=== PATIENT | female | born 1945 | race Caucasian/White ===

== ENCOUNTER 2018-11-22 12:42 | Inpatient (IN) | payer MEDICARE, OTHER, SELFPAY ==
[2018-11-14 15:40] VITALS: BMI 38.9
[2018-11-22] VITALS (34 sets, daily range): BP systolic 70–176; BP diastolic 42–86; PULSE 63–128; RESP 4–24; TEMP 36.4–37.1; O2SAT 93–100; BMI 38.5; BMI 39.6; BMI 39.7
--- NOTE | 2018-11-22 | PILCYST_PTH ---
PATIENT: CHRISS VERA LOC: [facility] U#:[id number] AGE/SX: 73/F ROOM: [facility] RE11/22/[address]: Dr. Joana Campoverde MD : [id number] BED: 1 DIS: 12/03/2018 SPEC #: [id number] RECD: 11/22/18 14:31 STATUS: TUAN REMickey #: [id number] DOUGLAS: 11/22/18 00:[address]: Dustin Eaton DEPT: SURGICAL PATHOLOGY RECD BY: Chin Maravilla ENTERED: 11/22/18 14:32 SP TYPE: Pilonidal OTHR DR: MD Inez Sevilla, DETECTIVE LIEUTENANT-C Tissues: PILONIDAL TISSUE Procedures: Surgery Specimen Level III HEADER OPERATION: Excision hidradenitis, gluteal and perianal area PRE-OP DIAGNOSIS: Hidradenitis bilateral perianal areas, early onset right inguinal hidradenitis TISSUE SUBMITTED: Tissue gluteal and bilateral perianal hidradenitis and pilonidal cyst MICROSCOPIC DIAGNOSIS Tissue gluteal and bilateral perianal hidradenitis and pilonidal cyst: Pieces of skin with underlying tissue with acute and chronic inflammation consistent with hidradenitis. Focal changes consistent with pilonidal cyst. SJ:del 11/23/18 MICROSCOPIC DESCRIPTION Slides are reviewed. GROSS DESCRIPTION Received in fixative is one container labeled with the patient's name and designated gluteal and perianal tissue. The specimen consists of four irregular fragments of pink-russell skin with attached hemorrhagic red-russell fibrofatty tissue. The fragments range in size from 6 to 13.5 cm. The fragments are not oriented or designated. No cutaneous lesions are identified. Serial sections reveal subcutaneous hemorrhagic cysts ranging in size from 1.5 to 6.2 cm. Armature Tester sections are submitted in three cassettes. / AM:del 11/22/18 TC:3 CPT: 27171
--- NOTE | 2018-11-22 00:22 | HP.PCM_ITS ---
History and Physical Date of Admission: 11/22/18 HISTORY OF PRESENT ILLNESS 73 year old woman presents with a flare up of hidradenitis in her bilateral perianal area. She has pain when sitting. She has noticed some drainage and some odor. She denies fever. She denies trauma. She has had hidradenitis before in her bilateral axillary areas, and left inguinal area. She had recent left inguinal hidradenitis surgery. She has also noted early onset hidradenitis in her right inguinal area but is asymptomatic at present. She has recently sustained a right shoulder dislocation and is undergoing PT. She is supposed to have a shoulder replacement in the future after her infected hidradenitis in her bilateral perianal areas have been excised and the wounds have healed. She is currently on Doxycycline for her recent left inguinal hidradenitis surgery. She presents today for further evaluation and treatment. PAST MEDICAL HISTORY Hemorrhoids Acid reflux Anxiety Depression Rheumatoid arthritis Back problem Diabetes Thyroid disease Anemia Asthma Carpal tunnel syndrome Cataracts, bilateral Chronic pneumonia Glaucoma Hearing problem High cholesterol High triglycerides Neuropathy Osteoarthritis UTI (urinary tract infection) COPD (chronic obstructive pulmonary disease) PAST SURGICAL HISTORY eye surgery hysterectomy carpal tunnel repair repair of left hip joint back surgery ALLERGIES adhesive tape azithromycin [From Zithromax] cephalexin [From Keflex] MEDICATIONS aspirin 325 mg tablet 325 mg PO DAILY 10/25/18 [History Confirmed 10/25/18] atorvastatin 80 mg tablet 80 mg PO DAILY 10/25/18 [History Confirmed 10/25/18] bimatoprost 0.01 % eye drops 1 drp OPHTHALMIC QPM 10/25/18 [History Confirmed 10/25/18] citalopram 20 mg tablet 20 mg PO DAILY 10/25/18 [History Confirmed 10/25/18] doxycycline hyclate 100 mg capsule 100 mg PO DAILY 10/25/18 [History Confirmed 10/25/18] fenofibrate nanocrystallized 145 mg tablet 145 mg PO DAILY 10/25/18 [History Confirmed 10/25/18] furosemide 40 mg tablet 40 mg PO DAILY 10/25/18 [History Confirmed 10/25/18] insulin human U-100 NPH-regulr 70-30 mix 100 unit/mL subcutaneous susp 80 unit SC DAILY ml 10/25/18 [History Confirmed 10/25/18] levalbuterol 0.63 mg/3 mL solution for nebulization 0.63 mg INHALATION ONCE 10/25/18 [History Confirmed 10/25/18] levothyroxine 175 mcg capsule 175 mcg PO DAILY 10/25/18 [History Confirmed 0 10/25/18] losartan 50 mg tablet 50 mg PO DAILY 10/25/18 [History Confirmed 10/25/18] metformin 500 mg tablet 500 mg PO BID 10/25/18 [History Confirmed 10/25/18] polyethylene glycol 3350 17 gram oral powder packet 17 g PO DAILY 10/25/18 [History Confirmed 10/25/18] potassium chloride 20 mEq oral packet 20 meq PO DAILY 10/25/18 [History Confirmed 10/25/18] pumpkin seed extract-soy germ 300 mg capsule cap PO cap 10/25/18 [History Confirmed 10/25/18] ropinirole 0.5 mg tablet 0.5 mg PO QHS 10/25/18 [History Confirmed 10/25/18] sulfamethoxazole 800 mg-trimethoprim 160 mg tablet 1 tab PO BID #60 tab 11/14/18 [Rx Confirmed 11/14/18] FAMILY HISTORY Mother - Lung cancer, Anxiety, Arthritis, Depression (emotion), Diabetes Sister - CVA (cerebral vascular accident), Anxiety, Asthma, Depression (emotion), Heart disease Aunt - Arthritis, Depression (emotion), Diabetes Daughter - Cancer Grandmother - Diabetes Grandfather - Heart disease, Psychiatric care, CVA (cerebral vascular accident) Father - COPD (chronic obstructive pulmonary disease) SOCIAL HISTORY Smoking Status: Former smoker alcohol intake: current alcohol intake frequency: holidays/special occasions only substance use type: does not use REVIEW OF SYSTEMS General - Denies fever, fatigue, and weight loss. Eyes - Denies cataracts and glaucoma. ENT - Denies nasal congestion and sore throat. Endocrine - Denies excessive thirst and urination. Has diabetes mellitus. Skin - Denies skin cancer. Has flare up of hidradenitis bilateral perianal are as. Musculoskeletal - Denies joint pain, joint stiffness, weakness of muscles and joints, back pain. Has arthritis. Neuro - Denies headaches. Cardiovascular - Denies chest pain, fatigue, and shortness of breath with exertion. Psych - Denies anxiety and depression. Respiratory - Denies chronic cough and shortness of breath. Patient is a former smoker. Gastrointestinal - Has nausea, vomiting, diarrhea, and constipation. Hematologic - Denies abnormal bruising and bleeding. Genitourinary - Denies hematuria and urinary frequency. PHYSICAL EXAMINATION General - Alert and Oriented HEENT - PERRL. EOMI. Throat is clear. No suspicious lesions noted. Neck - Supple and nontender. No cervical adenopathy. No suspicious lesions noted. Lungs - Clear to auscultation. Heart - Regular rate and rhythm. Abdomen - Soft and nondistended. Has small area of early onset hidradenitis right inguinal area. Mild induration. Nontender. Asymptomatic at this time. Had recent left inguinal hidradenitis surgery that is healed at present. Extremities - FROM. No axillary adenopathy. Radial pulses are palpable. Has bilateral axillary hidradenitis that shows some induration. Nontender. Asymptomatic at this time. Rectal - Has hidradenitis bilateral perianal areas. Left side measures 12 cm and the right side measures 4 cm. Close to the anal opening. Tender to palpation. No purulent drainage. Some exophytic growth noted on the left. Some induration noted. No ulcerations. Neuro - CN II-XII grossly intact. Psych - Normal mood and affect. ASSESSMENT 1. Hidradenitis bilateral perianal areas. 2. Early onset right inguinal hidradenitis. 3. Bilateral axillary hidradenitis, asymptomatic. 4. Left inguinal hidradenitis, recently excised. 5. Former smoker. PLAN Recommend excision of her hidradenitis bilateral perianal areas. Will send tissue to Pathology for analysis to rule out carcinoma. Will also send tissue to Microbiology for culture. A positive culture will necessitate antibiotic therapy. The wound will be left open and packed with Betadine dressings initially to minimize infection from stool. As the wound stabilizes and starts to heal, may change to Silver dressing changes daily. Stressed to the patient the importance of taking a shower after each bowel movement which gives us the best chance of healing without stool contamination. If stool contamination becomes an issue during the healing process, then she would need a temporary diverting colostomy until the wounds have healed. If a colostomy is done, can then consider a skin graft for closure. Because she has diabetes, if a skin graft is decided upon, she would need a HgbA1c checked, and it needs to be less than 8. Surgery would be under general anesthesia with a surgical observation overnight stay in the hospital. Anticipate increased metabolic demands from the infection and from the wounds after surgery. Will check a Prealbumin and encourage nutritional supplementation with protein to help the healing process. She was recently on Doxycycline for her left inguinal surgery. Will send a script for Bactrim that she can use for flare ups to temporize until surgery is done. Patient was informed of the risks and complications of the procedure including alternatives to surgery. These were discussed with the patient personally. Patient voices understanding and wishes to proceed. Some of the risks and complications were included in a form from the [employer]. After healing has occurred, she will return to see her Orthopedic Surgeon to discuss her right shoulder surgery.
[2018-11-22 08:50] LABS: Bedside Glucose 55 mg/dL (70-110)
[2018-11-22] MEDS: levoFLOXacin IV 500 MG/100 ML BAG 100 MG IV (09:11)
[2018-11-22 09:35] LABS: Bedside Glucose 171 mg/dL (70-110)
--- NOTE | 2018-11-22 12:33 | OP.PCM_ITS ---
Report of Operation Date of Procedure: 11/22/18 Pre-Operative Diagnosis: 1. Hidradenitis bilateral perianal areas. 2. Former smoker. Post-Operative Diagnosis: 1. Hidradenitis bilateral perianal areas. 2. Extensive, complicated pilonidal cyst abscess. 3. Former smoker. Surgery/Procedure Performed:: 1. Surgical preparation bilateral perianal areas with excision hidradenitis (162.5 cm2). 2. Excision extensive, complicated pilonidal cyst abscess (75 cm2). Description of Surgical Findings:: 73 year old woman presents with a flare up of hidradenitis in her bilateral perianal area. She has pain when sitting. She has noticed some drainage and some odor. She denies fever. She denies trauma. She has had hidradenitis before in her bilateral axillary areas, and left inguinal area. She had recent left inguinal hidradenitis surgery. She has also noted early onset hidradenitis in her right inguinal area but is asymptomatic at present. She has recently sustained a right shoulder dislocation and is undergoing PT. She is supposed to have a shoulder replacement in the future after her infected hidradenitis in her bilateral perianal areas have been excised and the wounds have healed. She is currently on Doxycycline for her recent left inguinal hidradenitis surgery. Patient was informed of the risks and complications of the procedure including alternatives to surgery. These were discussed with the patient personally. Patient voices understanding and wishes to proceed. Some of the risks and complications were included in a form from the [place] [employer]. IV Fluids - 1300 ml. Urine Output - 300 ml. Size of defect bilateral perianal area - 13 x 12.5 x 5 cm. Size of defect sacral area - 6 x 12.5 x 5 cm. Size of combined wound bilateral perianal area and sacral area - 19 x 12.5 x 5 cm. cargo checker: None Type of Anesthesia:: General Specimen's removed: Hidradenitis bilateral perianal areas and pilonidal cyst abs cess sacral area to Pathology and Microbiology. Drains: None. Estimated Blood Loss (mL): 250 ml. Fluids Replaced: 1600 ml (IV Fluids 1300 ml, Urine Output 300 ml). Description of Procedure: Patient was taken to OR in supine position and was placed under general anesthesia. She was then placed in the prone position. The sacral and bilateral gluteal and perianal areas were prepped and draped in the usual fashion. SCD's were placed for DVT prophylaxis. Perioperative antibiotics were given intravenously. Using xylocaine with epinephrine, the areas of hidradenitis in her bilateral gluteal and perianal areas were infiltrated. After waiting 5 minutes for the anesthetic to take effect, I excised her bilateral perianal hidradenitis down into the subcutaneous tissue extending to the underlying muscle. It extended up to the anal sphincter muscle. No pus was seen. A lot of fat necrosis was seen. A lot of induration and scarring was present. These areas were excised. When I excised posteriorly, it was noted the patient had an extensive, complicated pilonidal cyst abscess extending down to the sacral fascia. It had multiple lobulations. This extensive, complicated pilonidal cyst abscess was then excised. This soft tissue was sent to Pathology for analysis to rule out carcinoma and to Microbiology for culture. A positive culture will necessitate antibiotic therapy. The large bilateral perianal and sacral wound was irrigated with saline. Hemostasis was obtained with elec trocautery. The size of the total defect was 19 x 12.5 x 5 cm or 237.5 cm2. Broken down into the bilateral perianal component, the defect measures 13 x 12.5 x 5 cm or 162.5 cm2 and with the sacral component, the defect measures 6 x 12.5 x 5 cm or 75 cm2. The defect was then dressed with Mepitel nonadherent dressing followed by Kerlix gauze and Betadine followed by dry Kerlix gauze and ABD pads compression dressing followed by mesh panties. Will start Aquacel Silver dressing changes tomorrow and she would need to take a shower after each bowel movement at which time the dressing changes would change to saline dressing changes the rest of the day. After discharge, [facility]. She understands that if stool contamination occurs, then she would need a diverting colostomy. Grafts/Implants Used: None. - Complications None. - Admit VTE Documentation VTE Present on Admission: No VTE Mechan Device Prophylaxis: SCD's VTE Pharm Prophylaxis ordered?: Yes Code Visit Surgery Charges CPT - 52098 ICD-10 - L05.01, S31.000A, Z87.891 04967 L73.2, S31.809A, Z87.891 02184-56 L73.2, S31.809A, Z87.891
--- NOTE | 2018-11-22 12:58 | EKG12_ITS ---
Test Reason : Blood Pressure : / mmHG Vent. Rate : 078 BPM Atrial Rate : 078 BPM P-R Int : 220 ms QRS Dur : 096 ms QT Int : 384 ms P-R-T Axes : 023 -28 068 degrees QTc Int : 437 ms Sinus rhythm with sinus arrhythmia with 1st degree A-V block Inferior infarct , age undetermined Anteroseptal infarct , age undetermined Abnormal ECG Confirmed by MARILYN PITTMAN, BRYANT ([id number]), sports editor MARYANNE TIJERINA ([id number]) on 11/28/2018 1:39:50 PM Referred By: Dustin Eaton Confirmed By:BRYANT SANDERS MD
[2018-11-22 13:01] LABS: Bedside Glucose 187 mg/dL (70-110)
--- NOTE | 2018-11-22 13:28 | PN_ITS ---
Subjective: Consult for medical management: 73-year-old female with past medical history of hidradenitis of the bilateral axillary, inguinal and perianal region, reportedly with history of COPD on 3 L of oxygen hypertension, type II DM who comes in for an elective debridement of hidradenitis suppirativa. Patient was extubated postoperatively in the OR, and transferred to PACU. In PACU she was found to be having worsening shortness of breath, and was lethargic, she was reintubated and continued on mechanical intubation. Hospital medicine was consulted by primary for medical management Patient seen in PACU, intubated, sedated, minimally responsive. Unable to obtain review of systems. Vitals/I&O's: Vital Signs Temp Pulse Resp BP Pulse Ox 98.1 F 72 20 H 70/42 L 100 11/22/18 08:45 11/22/18 13:20 11/22/18 13:20 11/22/18 13:20 11/22/18 13:20 Oxygen Flow Rate (L/min) 10 Oxygen Delivery Method Mechanical Ventilator Weight: 98.8 kg Body Mass Index (BMI) 38.5 Intake and Output for Last 24 Hours 11/20/18 11/21/18 11/22/18 23:59 23:59 23:59 Output Total 300 / 300 Balance -300 / -300 General: - - Sedated, intubated, on mechanical ventilation HEENT: Atraumatic, EOMI, Normocephalic, - - Pupils are sluggish, right pupil bigger than the left, about 3 mm in diameter, no reactive to light Oral: Moist Mucosa Neck: Supple, No JVD, Negative Carotid Bruits Lungs: Clear to auscultation, Normal air movement Cardiovascular: Regular rate, Regular Rhythm, Normal S1, Normal S2, No murmurs Abdomen: Bowel Sounds Present, Soft, Non Tender, Non-Distended, No Hepato- splenomegaly, Obese Extremities: No edema Skin: - - excoriation of skin underneath the breast Musculoskeletal: No Tenderness to Palpation of Joints or Extremities Neurological: - - Sedated, intubated Psych/Mental Status: Normal Affect, Appropriate Laboratory Results 11/22/18 08:44: POC Glucose 55 L 11/22/18 09:30: POC Glucose 171 H 11/22/18 12:59: POC Glucose 187 H Current Medications Acetaminophen (Tylenol) 500 mg PO Q6H PRN PRN PRN Reason: PAIN Atorvastatin Calcium (Lipitor) 80 mg PO DAILY [facility] Citalopram Hydrobromide (Celexa) 20 mg PO DAILY [facility] Docusate Sodium (Colace) 100 mg PO BID [facility] Enoxaparin Sodium (Lovenox) 40 mg SC DAILY@0600 [facility] Fenofibrate (Tricor) 145 mg PO DAILY [facility] Furosemide (Lasix) 40 mg PO DAILY [facility] Hydromorphone HCl (Dilaudid Inj) 0.5 mg IV Q3H PRN PRN PRN Reason: SEVERE PAIN (-05/16) Levofloxacin (Levaquin Iv) 500 mg in 100 mls @ 100 mls/hr IV Q24 [facility] Lactated Ringer's () 1,000 mls @ 60 mls/hr IV .[id number] [facility] Metronidazole (Flagyl) 500 mg in 100 mls @ 100 mls/hr IV Q8 [facility] Insulin Human Isoph/Insulin Regular (Novolin 70/30) 80 units SC BID [facility] Losartan Potassium (Cozaar) 50 mg PO DAILY [facility] Metformin HCl (Glucophage) 500 mg PO BID [facility] Non-Formulary Medication (Bimatoprost 0.01% [Lumigan 0.01%]) 1 drp OPHTHALMIC QPM [facility] Non-Formulary Medication (Levalbuterol Hcl [Levalbuterol Hcl]) 0.63 mg INHALATION ONCE PRN PRN Reason: SOB &/OR WHEEZING Non-Formulary Medication (Levothyroxine Sodium [Tirosint]) 175 mcg PO DAILY [facility] Non-Formulary Medication (Potassium Chloride [Potassium Chloride]) 20 meq PO DAILY [facility] Non-Formulary Medication (Pumpkin Seed Extract/Soy Germ [Azo Bladder Control Capsule]) 1 cap PO PRN PRN PRN Reason: BLADDER SPASMS Nutritional Formula (Juice - Loop Flavor) [facility] Ondansetron HCl (Zofran) 4 mg IV Q6H PRN PRN PRN Reason: NAUSEA Oxycodone HCl (Oxyir) 10 mg PO Q4H PRN PRN PRN Reason: SEVERE PAIN (-05/16) Polyethylene Glycol (Miralax) 17 gm PO DAILY PRN PRN Reason: Constipation Promethazine HCl (Phenergan Tablet) 25 mg PO Q4H PRN PRN PRN Reason: NAUSEA/VOMITING Ropinirole HCl (Requip) 0.5 mg PO QHS [facility] Trimethoprim/Sulfamethoxazole (Bactrim Ds) tablet PO BID [facility] Medical Necessity - Tobacco Use Smoking Status: Former smoker Tobacco Use: Non-smoker Assessment/Plan All Active Problems (Last Updated 11/12/18 @ 10:48 by Kathy Olson) Hx of eye surgery (Acute) Hx of hysterectomy (Acute) Hx of carpal tunnel repair (Acute) History of repair of left hip joint (Acute) History of back surgery (Acute) Hemorrhoids (Acute) Acid reflux (Acute) Constipation (Acute) Diarrhea (Acute) Vomiting (Acute) Nausea (Acute) Abdominal pain (Acute) SOB (shortness of breath) (Acute) Heart murmur (Acute) Anxiety (Acute) Depression (Acute) Rheumatoid arthritis (Acute) Arthritis (Acute) Back problem (Acute) Diabetes (Acute) Thyroid disease (Acute) 73-year-old female with past medical history of hidradenitis of the bilateral axillary, inguinal and perianal region, reportedly with history of COPD on 3 L of oxygen hypertension, type II DM who comes in for an elective debridement of hidradenitis suppirativa and found to be in respiratory distress after initial extubation and re-intubated in PACU. 1. Acute hypoxic/hypercapneic respiratory failure, underlying history of COPD on 3 L of oxygen, status post intubation, mechanical ventilator Will be managed in ICU, process inspector also consulted, follow-up on recommendations. 2. Postop day #0 status post debridement/surgery for hidradenitis suppurativa, and of extensive, complicated pilonidal cyst abscess about 75 cm? Wound cultures are pending , will hold oral Bactrim, continue on IV Levaquin and Flagyl, will check for MRSA PCR 3. Hyperkalemia, K is 5.4, repeat labs are pending. 4. Type II DM, on metformin, check HbA1c, hold metformin, start with Accu-Cheks with insulin sliding scale 4. Rest of chronic medical problems - hypothyroidism, obesity, rheumatoid arthritis, hyperlipidemia, CKD stage 3- are stable 5. DVT PPx- Lovenox SC Code Visit Inpatient E&M: 76096 Subs Hosp L2
--- NOTE | 2018-11-22 13:34 | RAD_ITS ---
STUDY: X-RAY CHEST REASON FOR EXAM: Female, 73 years old. ET tube placement TECHNIQUE: Single AP portable view of the chest. COMPARISON: None. FINDINGS: ET tube is 5.3 cm above the anita approximately at the level of the aortic arch. There is mild pulmonary interstitial thickening. There is bibasilar atelectasis. There is a small left pleural effusion. No right pleural effusion. No pneumothorax. Normal size heart. Normal mediastinum and varsha. Normal visualized pulmonary arteries. Normal visualized aortic arch and descending thoracic aorta. Normal visualized thoracic spine. Normal visualized ribs, clavicles, and shoulders. There is no demonstrated abnormality of the visualized soft tissue structures of the upper abdomen. RAD/Chest 1 View (Portable) IMPRESSION: Moderate diffuse pulmonary edema and small left pleural effusion. Electronically Signed: Chandler Krishnamurthy, at 15:45 EDT Tel , Service support ,
[2018-11-22 13:56] LABS: Anion Gap 7 (5-15); BUN 25 mg/dL (7-18); BUN/Creat Ratio 22.7 RATIO (10-20); Calcium,Total 8.4 mg/dL (8.5-10.1); Chloride 102 mmol/L (98-107); EST Glomerular Filtration Rate 52 mL/min (>60); Est Glom Filt Rate - Afr Amer 63 mL/min (>60); Estimated Creatinine Clearance 38.24 ml/min; Glucose 227 mg/dL (74-106); Potassium 5.4 mmol/L (3.5-5.1); Sodium Level 134 mmol/L (136-145)
[2018-11-22] MEDS: Propofol 10MG/Ml 1,000 MG/100 ML Bottle 5.928 MG CONT INF (14:45)
[2018-11-22 14:51] LABS: Allen Test POS; Base Excess -3 mmol/L (-2 to +2); Bicarbonate 22.6 mmol/L (22-26); Blood Gas Specimen Type ART; FI02 60; Mode A-C; O2 Delivery Device Vent; PEEP 5; PO2 78 mmHG (75-100); RR 14; SITE L Radial; SO2 94 % (95-99); Time Given 1434; Total Carbon Dioxide 24 mmol/L; Vt 450; pCO2 43.3 mmHg (35-45); pH 7.33 (7.35-7.45)
[2018-11-22] MEDS: fentaNYL drip 100 ML 5 MCG CONT INF (15:19)
[2018-11-22 15:21] LABS: Allen Test POS; Blood Gas Specimen Type ART; FI02 100; PO2 189 mmHG (75-100); SITE L Radial; Time Given 1300
[2018-11-22 15:25] LABS: Bedside Glucose 202 mg/dL (70-110)
[2018-11-22] MEDS: Lactated Ringers 1,000 ML 60 ML IV (15:28)
[2018-11-22] MEDS: Lactated Ringers 1,000 ML 999 ML IV (15:40)
--- NOTE | 2018-11-22 15:41 | CPS ---
1312: critical values ran times two. Critical values hand delivered to DR. Roberson.
[2018-11-22 15:44] LABS: pCO2 > 130.0 mmHg (35-45)
[2018-11-22 15:45] LABS: pH 6.89 (7.35-7.45)
--- NOTE | 2018-11-22 15:48 | PCM.CON.CC ---
Problem List (1) COPD (chronic obstructive pulmonary disease) Status: Chronic Qualifiers: COPD type: unspecified COPD Qualified Code(s): J44.9 - Chronic obstructive pulmonary disease, unspecified (2) Hidradenitis suppurativa Status: Chronic Comment: bilateral inguinal hidradenitis (3) Former smoker Status: Chronic (4) Hidradenitis suppurativa of anus Status: Chronic Comment: bilateral perianal and gluteal areas (5) Hx of eye surgery Status: Acute Comment: left eye (6) Hx of hysterectomy Status: Acute (7) Hx of carpal tunnel repair Status: Acute Comment: bilateral (8) History of repair of left hip joint Status: Acute (9) History of back surgery Status: Acute Comment: fusion (10) Acid reflux Status: Acute (11) Heart murmur Status: Acute (12) Anxiety Status: Acute (13) Depression Status: Acute (14) Rheumatoid arthritis Status: Acute (15) Diabetes Status: Acute (16) Thyroid disease Status: Acute Reason for Consult Date of Consultation: 11/22/18 Reason for Consultation: Respiratory failure History of Present Illness: The patient is a 73 year old F, with past medical history listed below, who presented to [facility] on 11/22/2018 secondary to an elective resection of hidradenitis of the perianal region. Patient reportedly had a successful elective debridement of hidradenitis suppurativa of the anal region and tolerated the procedure well. There was some hypotension during the procedure requiring phenylephrine. Patient was extubated postoperatively and transferred to the PACU. In the PACU, patient was noted to have worsening dyspnea, lethargy and decreased responsiveness. End-tidal CO2 was reportedly above 80 and patient was intubated. ABG shortly thereafter showed a CO2 greater than 130. I was called to evaluate the patient in the PACU. Patient did have some decreased blood pressures associated with propofol and succinylcholine used for intubation. Patient reportedly tolerated the procedure well with an approximate 250 mL blood loss. Patient's repeat ABG showed correction of previous acidosis and patient was transferred to the intensive care unit for further evaluation. On arrival to the intensive care unit, patient was waking up. Patient was placed on a fentanyl drip, in addition to baseline propofol. Patient's blood pressure was slightly decreased. Patient did receive 1 L of lactated Ringer's. Patient was also noted to have pale mucosa, so a CBC, CMP and coagulation studies were sent. Patient has had an EKG that showed no significant changes. Patient reportedly has a history of COPD with questionable 3 L nasal cannula oxygen requirement. Patient has never had pulmonary function test or an echocardiogram completed at this hospital. Patient reportedly has Xopenex aerosols at home. Patient reportedly has recently been on doxycycline secondary to left inguinal hidradenitis. Remaining review of systems are unable to be obtained at this time secondary to patient's intubated status and no family at the bedside. Past Medical History Past Medical History (Chronic Problems): Chronic Problems (Last Updated 11/12/18 @ 10:48 by Kathy Olson) COPD (chronic obstructive pulmonary disease) (Chronic) Hidradenitis suppurativa (Chronic) bilateral inguinal hidradenitis Axillary hidradenitis suppurativa (Chronic) bilateral Former smoker (Chronic) Hidradenitis suppurativa of anus (Chronic) bilateral perianal and gluteal areas Medical History: Medical History (Last Updated 11/12/18 @ 10:48 by Kathy Olson) Hemorrhoids (Acute) K64.9 Acid reflux (Acute) K21.9 Constipation (Acute) K59.00 Diarrhea (Acute) R19.7 Vomiting (Acute) R11.10 Nausea (Acute) R11.0 Abdominal pain (Acute) R10.9 SOB (shortness of breath) (Acute) R06.02 Heart murmur (Acute) R01.1 Anxiety (Acute) F41.9 Depression (Acute) F32.9 Rheumatoid arthritis (Acute) M06.9 Arthritis (Acute) M19.90 Back problem (Acute) M53.9 Diabetes (Acute) E11.9 Thyroid disease (Acute) E07.9 Anemia D64.9 Asthma J45.909 Bone fracture T14.8XXA Carpal tunnel syndrome G56.00 Cataracts, bilateral H26.9 Chronic pneumonia J18.9 Glaucoma H40.9 Hearing problem H91.90 High cholesterol E78.00 High triglycerides E78.1 Multiple allergies Z88.9 Neuropathy G62.9 Osteoarthritis M19.90 Recurrent infections B99.9 UTI (urinary tract infection) N39.0 COPD (chronic obstructive pulmonary disease) J44.9 Allergies adhesive tape Allergy (Unknown, Verified 11/22/18 08:41) Unknown azithromycin [From Zithromax] Allergy (Unknown, Verified 11/22/18 08:41) Unknown cephalexin [From Keflex] Allergy (Unknown, Verified 11/22/18 08:41) Unknown Home Medications: Ambulatory Orders Medication Instructions Recorded aspirin 325 mg tablet 325 mg PO DAILY 10/25/18 atorvastatin 80 mg tablet 80 mg PO DAILY 10/25/18 bimatoprost 0.01 % eye drops 1 drp OPHTHALMIC QPM 10/25/18 citalopram 20 mg tablet 20 mg PO DAILY 10/25/18 doxycycline hyclate 100 mg capsule 100 mg PO DAILY 10/25/18 fenofibrate nanocrystallized 145 145 mg PO DAILY 10/25/18 mg tablet furosemide 40 mg tablet 40 mg PO DAILY 10/25/18 insulin human U-100 NPH-regulr 80 unit SC BID ml 10/25/18 70-30 mix 100 unit/mL subcutaneous susp levalbuterol 0.63 mg/3 mL solution 0.63 mg INHALATION ONCE PRN 10/25/18 for nebulization levothyroxine 175 mcg capsule 175 mcg PO DAILY 10/25/18 losartan 50 mg tablet 50 mg PO DAILY 10/25/18 metformin 500 mg tablet 500 mg PO BID 10/25/18 polyethylene glycol 3350 17 gram 17 g PO DAILY PRN 10/25/18 oral powder packet potassium chloride 20 mEq oral 20 meq PO DAILY 10/25/18 packet pumpkin seed extract-soy germ 300 1 cap PO PRN PRN cap 10/25/18 mg capsule ropinirole 0.5 mg tablet 0.5 mg PO QHS 10/25/18 sulfamethoxazole 800 1 tab PO BID #60 tab 11/14/18 mg-trimethoprim 160 mg tablet Surgical History: Surgical History (Last Reviewed 10/30/18 @ 14:00 by Anselmo Serrato MD) Hx of eye surgery (Acute) Z98.890 left eye Hx of hysterectomy (Acute) Z90.710 Hx of carpal tunnel repair (Acute) Z98.890 bilateral History of repair of left hip joint (Acute) Z98.890 History of back surgery (Acute) Z98.890 fusion Smoking Status: Former smoker Tobacco Use: Non-smoker Review of Systems Unable to obtain accurate/complete ROS d/t: Intubated and sedated Objective: Chest x-ray was personally reviewed and shows no acute infiltrates. - Physical Exam General: - - Intubated and sedated. RASS -1. Obese. Fair vent synchrony noted. HEENT: Atraumatic, PERRLA, EOMI, Normocephalic Oral: Moist Mucosa, No Gingival or Mucosal Lesions/ Ulcerations, - - Pale mucous membranes Neck: Supple, No JVD, No Nodes, Trachea Midline Lungs: No rhonchi, No wheeze, No rales, Diminished, - - Symmetric expansion. No dullness to percussion. Cardiovascular: Regular rate, Regular Rhythm, Normal S1, Normal S2, No murmurs, No rub noted, No Gallop Abdomen: Bowel Sounds Present, Soft, Non Tender, Non-Distended, Obese Extremities: No clubbing, No cyanosis, Edema - 1+ of the lower extremities Skin: Incision - Clean, dry and intact Musculoskeletal: No Tenderness to Palpation of Joints or Extremities Lymphatic: No Cervical, Supraclavicular, or Inguinal Adenopathy Neurological: Cranial nerves II-XII grossly intact, Neuro grossly intact, Motor Exam 5/5 strength throughout Psych/Mental Status: Flat Affect, Impulsive Vital Signs Temp Pulse Resp BP Pulse Ox 37.1 C 84 15 106/42 L 95 11/22/18 14:00 11/22/18 15:32 11/22/18 15:32 11/22/18 14:15 11/22/18 15:32 Oxygen Flow Rate (L/min) 10 Oxygen Delivery Method Mechanical Ventilator Weight: 98.8 kg Body Mass Index (BMI) 38.5 Intake and Output for Last 24 Hours 11/20/18 11/21/18 11/22/18 23:59 23:59 23:59 Output Total 300 / 300 Balance -300 / -300 Laboratory Tests Past 24 Hrs 11/22/18 11/22/18 11/22/18 13:12 13:30 13:30 Specimen Type ART Sample Site L Radial pH 6.89 L* Bicarbonate Actual TNP POC Total CO2 TNP Base Excess TNP O2 Saturation TNP O2 % 100 ABG pCO2 > 130.0 H* ABG pO2 189 H Andrew Test POS Respiration Rate O2 Delivery Device Ambu Vent Mode Tidal Volume POC PEEP Blood Gas Notified Whom OTHER Blood Gas Notified Time 1300 Sodium 134 L Potassium 5.4 H Chloride 102 Carbon Dioxide 25.0 Anion Gap 7 BUN 25 H Creatinine 1.10 H Estim Creat Clear Calc 38.24 Est GFR (MDRD) Af Amer 63 Est GFR (MDRD) Non-Af 52 L BUN/Creatinine Ratio 22.7 H Glucose 227 H Calcium 8.4 L Total Creatine Kinase Troponin I 0.036 Triglycerides 11/22/18 11/22/18 13:30 14:45 Specimen Type ART Sample Site L Radial pH 7.33 L Bicarbonate Actual 22.6 POC Total CO2 24 Base Excess -3 L O2 Saturation 94 L O2 % 60 ABG pCO2 43.3 ABG pO2 78 Andrew Test POS Respiration Rate 14 O2 Delivery Device Vent Vent Mode A-C Tidal Volume 450 POC PEEP 5 Blood Gas Notified Whom OTHER Blood Gas Notified Time 1434 Sodium Potassium Chloride Carbon Dioxide Anion Gap BUN Creatinine Estim Creat Clear Calc Est GFR (MDRD) Af Amer Est GFR (MDRD) Non-Af BUN/Creatinine Ratio Glucose Calcium Total Creatine Kinase Pending Troponin I Triglycerides Pending POC Glucose 11/22/18 11/22/18 11/22/18 15:16 12:59 09:30 POC Glucose 202 H 187 H 171 H 11/22/18 08:44 POC Glucose 55 L Clinical Impression(s) from Imaging Studies Chest X-Ray 11/22/18 13:34 IMPRESSION: Moderate diffuse pulmonary edema and small left pleural effusion. Electronically Signed: Chandler Raghu, at 15:45 EDT Tel , Service support , Assessment/Plan RECOMMENDATIONS: 1. Continue mechanical ventilation at current settings 2. Initiate empiric antibiotic therapy 3. Spontaneous awakening and breathing trials per protocol 4. Wean supplemental oxygen is indicated 5. Await repeat laboratory workup IMPRESSIONS: 1. Acute combined respiratory failure with questionable history of COPD Repeat ABG shows normalization of acid base status with current mechanical ventilation. Chest x-ray does show some possible pulmonary edema versus atelectasis from hypoventilation. We will continue with propofol and fentanyl as needed for vent synchrony. Spontaneous awakening and breathing trials per protocol. Patient does not appear to be a CO2 retainer at baseline, so doubt hyper oxygen status leading to decreased respiratory drive. Patient may have slow metabolism of anesthetics. Hepatic panel will be ordered. Hyperkalemia may be secondary to systemic acidosis. This will be rechecked. 2. Hypotension Unclear etiology at this time. Patient did receive significant anesthesia. Patient also appears to have pale mucous membranes. CBC will be obtained for evaluation of acute blood loss anemia. Patient will be given empiric antibiotics with Levaquin and Flagyl. Labs have been ordered for evaluation of endorgan damage. Oxygenating well at this time, so will continue to use fluids as necessary. Cannot exclude the need for pressors overnight. 3. Hidradenitis suppurativa postop day #0 Patient with extensive complicated abscess removal. Reported tissue removal of approximately 75 cm?. Patient does have wound cultures pending that will direct antibiotic coverage. MRSA PCR has spent ordered. 4. Obesity/type 2 diabetes mellitus/hyperlipidemia/rheumatoid arthritis/chronic pain syndrome/hypothyroidism Complicates care, management, recovery and prognosis. Hold off on tube feeds at this time. Can check with sliding scale insulin every 6 hours while n.p.o. Hemoglobin A1c has been ordered. TIME: 45 minutes critical care time spent addressing patient's acute combined respiratory failure, hypotension, review of all data and collaboration with care team (3 PM to 4 PM) Code Visit [id number]: [id number] Critical care first hour
[2018-11-22 16:00] LABS: CPK Total, Creatine Kinase 81 U/L (26-192); Triglycerides 166 mg/dL
[2018-11-22 16:15] LABS: Absolute Lymphocyte Count 0.79 X10^3/ul (0.83-4.51); Absolute Neutrophil Count 9.5 X10^3/uL (2.0-7.7); Basophil# 0.01 X10^3/uL; Basophil% 0.1 % (0-1); Eosinophil# 0.03 X10^3/uL; Eosinophils% 0.3 % (0-5); Hematocrit 27.2 % (37-47); Hemoglobin 8.4 g/dl (12.0-15.0); Lymphocyte # 0.79 X10^3/ul (4.0); Lymphocyte % 7.6 % (19-41); Mean Corp Hgb Conc 30.9 g/gl (32-36); Mean Corpuscular Hgb 25.5 pg (27.0-32.0); Mean Corpuscular Volume 82.4 fL (81-99); Mean Platelet Vol. 9.6 fl (6.2-12.0); Monocyte# 0.11 X10^3/uL; Monocyte% 1.1 % (0-10); Neutrophil # 9.45 X10^3/uL (2.7-7.7); Neutrophil % 90.5 % (47-70); Platelet Count 290 K/mm3 (150-450); RBC Distribution Width CV 16.3 % (11.6-14.6); RBC Distribution Width SD 49.4 fl (35.1-43.9); White Blood Count 10.4 K/mm3 (4.4-11.0)
[2018-11-22 16:17] LABS: POSITIVE COUNT NO; POSITIVE DIFFERENTIAL NO; POSITIVE MORPHOLOGY NO
[2018-11-22 16:21] LABS: International Normalized Ratio 1.3; Partial Thromboplast Time 32.6 Seconds (24.1-36.2); Prothrombin Time (Protime)PT. 15.7 SECONDS (11.7-14.9)
[2018-11-22 16:35] LABS: ALB/GLOB Ratio 0.5 RATIO (0.9-2.4); AST(SGOT) 22 U/L (15-37); Alanine Aminotransfer ALT/SGPT 19 U/L (13-56); Albumin, Serum 2.3 g/dL (3.2-5.0); Alkaline Phosphatase 35 U/L (45-117); Anion Gap 4 (5-15); BUN 26 mg/dL (7-18); BUN/Creat Ratio 25.5 RATIO (10-20); Calcium,Total 8.2 mg/dL (8.5-10.1); Chloride 103 mmol/L (98-107); Creatinine, Serum 1.02 mg/dL (0.55-1.02); EST Glomerular Filtration Rate 57 mL/min (>60); Est Glom Filt Rate - Afr Amer 68 mL/min (>60); Estimated Creatinine Clearance 39.43 ml/min; Globulin 4.5 g/dL (2.2-4.2); Glucose 193 mg/dL (74-106); Potassium 4.7 mmol/L (3.5-5.1); Protein, Total 6.8 g/dL (6.4-8.2); Sodium Level 134 mmol/L (136-145)
[2018-11-22] MEDS: Ipratropium/Albuterol Sulfate 3 ML AMPUL.NEB INHALATION (16:58)
[2018-11-22] MEDS: Budesonide Respules 0.5 MG/2 ML AMPUL.NEB. INHALATION (16:58)
--- NOTE | 2018-11-22 17:20 | NURSING ---
ed re chronic illness deferred till acute illness resolving
[2018-11-22] MEDS: Insulin Lispro 100 UNIT/ML INSULN.PEN SQ ×2 (18:26→23:57)
[2018-11-22 18:40] LABS: Bedside Glucose 156 mg/dL (70-110)
[2018-11-22] MEDS: Latanoprost 0.005% 1 Bottle 1 DRP OPHTHALMIC (21:22)
[2018-11-22] MEDS: 0.9% NaCl Peripheral Flush Adult/Peds IV ×2 (21:25→23:47)
[2018-11-22 21:31] LABS: Bedside Glucose 144 mg/dL (70-110)
[2018-11-22] MEDS: Chlorhexidine 15 ML PO (21:38)
[2018-11-22] MEDS: Propofol 10MG/Ml 1,000 MG/100 ML Bottle 8.892 MG CONT INF (23:47)
[2018-11-23] VITALS (29 sets, daily range): BP systolic 95–138; BP diastolic 37–62; PULSE 67–93; RESP 14–24; TEMP 36.7–37.3; O2SAT 92–98
[2018-11-23 00:06] LABS: Bedside Glucose 167 mg/dL (70-110)
[2018-11-23] MEDS: fentaNYL drip 100 ML 10 MCG CONT INF (00:35)
[2018-11-23] MEDS: 0.9% NaCl Peripheral Flush Adult/Peds IV ×4 (05:22→22:07)
[2018-11-23] MEDS: Enoxaparin 40 MG/0.4 ML Syringe SC (05:23)
[2018-11-23 05:24] LABS: Hematocrit 24.8 % (37-47); Hemoglobin 7.9 g/dl (12.0-15.0); Mean Corp Hgb Conc 31.9 g/gl (32-36); Mean Corpuscular Hgb 25.7 pg (27.0-32.0); Mean Corpuscular Volume 80.8 fL (81-99); Mean Platelet Vol. 9.7 fl (6.2-12.0); Platelet Count 272 K/mm3 (150-450); RBC Distribution Width CV 16.2 % (11.6-14.6); RBC Distribution Width SD 47.3 fl (35.1-43.9); Red Blood Count 3.07 M/mm3 (4.2-5.4); White Blood Count 10.2 K/mm3 (4.4-11.0)
[2018-11-23 05:25] LABS: Scan Indicated on CBC? Y/N NO
[2018-11-23 05:36] LABS: Bedside Glucose 131 mg/dL (70-110)
[2018-11-23 05:37] LABS: Anion Gap 7 (5-15); BUN 27 mg/dL (7-18); BUN/Creat Ratio 30.5 RATIO (10-20); Calcium,Total 8.5 mg/dL (8.5-10.1); Chloride 105 mmol/L (98-107); Creatinine, Serum 0.88 mg/dL (0.55-1.02); EST Glomerular Filtration Rate 67 mL/min (>60); Est Glom Filt Rate - Afr Amer 81 mL/min (>60); Glucose 141 mg/dL (74-106); Potassium 4.1 mmol/L (3.5-5.1); Sodium Level 137 mmol/L (136-145)
[2018-11-23 05:43] LABS: Prealbumin 13.7 mg/dL (20.0-40.0)
[2018-11-23 06:10] LABS: Allen Test POS; Base Excess -1 mmol/L (-2 to +2); Bicarbonate 23.2 mmol/L (22-26); Blood Gas Specimen Type ART; FI02 35; Mode CPAP PS; O2 Delivery Device Vent; PEEP 5; PO2 90 mmHG (75-100); PS 5; SITE L Radial; SO2 97 % (95-99); Time Given 601; Total Carbon Dioxide 24 mmol/L; pCO2 33.9 mmHg (35-45); pH 7.44 (7.35-7.45)
--- NOTE | 2018-11-23 06:25 | NURSING ---
Pt. extubated by respiratory to 4L NC. Pt. tolerated well.
[2018-11-23] MEDS: Ipratropium/Albuterol Sulfate 3 ML AMPUL.NEB INHALATION ×3 (06:45→18:58)
[2018-11-23] MEDS: Budesonide Respules 0.5 MG/2 ML AMPUL.NEB. INHALATION ×2 (06:46→18:58)
--- NOTE | 2018-11-23 07:06 | PN_ITS ---
Subjective: Patient did well overnight. No acute issues have been reported. Patient's blood pressure was marginal while on sedation, but improved rapidly with spontaneous awakening trial. Patient was able to tolerate a spontaneous breathing trial and was extubated under my direct supervision. Pain is controlled at this time. Patient is not reporting any chest pain. General: Alert, Cooperative, No apparent distress, - - Morbidly obese. HEENT: Atraumatic, PERRLA, EOMI, Normocephalic, - - No scleral icterus or injection noted. Oral: Moist Mucosa, No Gingival or Mucosal Lesions/ Ulcerations Neck: Supple, No JVD, No Nodes, Trachea Midline Lungs: No rhonchi, No wheeze, No rales, Diminished, - - Symmetric expansion. No dullness to percussion. Cardiovascular: Regular rate, Regular Rhythm, Normal S1, Normal S2, No murmurs, No rub noted, No Gallop Abdomen: Bowel Sounds Present, Soft, Non Tender, Non-Distended, Obese Extremities: No clubbing, No cyanosis, Edema Skin: Incision - Clean, dry and intact Musculoskeletal: No Tenderness to Palpation of Joints or Extremities Lymphatic: No Cervical, Supraclavicular, or Inguinal Adenopathy Neurological: Cranial nerves II-XII grossly intact, Neuro grossly intact, Motor Exam 5/5 strength throughout Psych/Mental Status: Normal Affect, Appropriate Vital Signs Temp Pulse Resp BP Pulse Ox 37.1 C 79 24 H 119/49 L 96 11/23/18 04:00 11/23/18 06:00 11/23/18 06:28 11/23/18 06:00 11/23/18 06:28 Oxygen Flow Rate (L/min) 4 Oxygen Delivery Method Nasal Cannula Weight: 101.4 kg Body Mass Index (BMI) 39.6 Intake and Output for Last 24 Hours 11/21/18 11/22/18 11/23/18 23:59 23:59 23:59 Intake Total 3221.9 / 3221.9 443.3 / 443.3 Output Total 950 / 950 350 / 350 Balance 2271.9 / 2271.9 93.3 / 93.3 Labs (Last 48 Hours) 11/22/18 11/22/18 11/22/18 08:44 09:30 12:59 WBC RBC Hgb Hct MCV MCH MCHC RDW RDW Differential Plt Count MPV Immature Gran % (Auto) Neut % (Auto) Lymph % (Auto) [place] % (Auto) Eos % (Auto) Baso % (Auto) Absolute Neuts (auto) Absolute Lymphs (auto) Total Counted PT INR APTT Specimen Type Sample Site pH Bicarbonate Actual POC Total CO2 Base Excess O2 Saturation O2 % ABG pCO2 ABG pO2 Andrew Test Respiration Rate O2 Delivery Device Vent Mode Tidal Volume POC PEEP POC Pressure Suppt Blood Gas Notified Whom Blood Gas Notified Time Sodium Potassium Chloride Carbon Dioxide Anion Gap BUN Creatinine Estim Creat Clear Calc Est GFR (MDRD) Af Amer Est GFR (MDRD) Non-Af BUN/Creatinine Ratio Glucose Calcium Total Bilirubin AST ALT Alkaline Phosphatase Total Creatine Kinase Troponin I Total Protein Albumin Globulin Albumin/Globulin Ratio Prealbumin Triglycerides POC Glucose 55 L 171 H 187 H 11/22/18 11/22/18 11/22/18 13:12 13:30 13:30 WBC RBC Hgb Hct MCV MCH MCHC RDW RDW Differential Plt Count MPV Immature Gran % (Auto) Neut % (Auto) Lymph % (Auto) [place] % (Auto) Eos % (Auto) Baso % (Auto) Absolute Neuts (auto) Absolute Lymphs (auto) Total Counted PT INR APTT Specimen Type ART Sample Site L Radial pH 6.89 L* Bicarbonate Actual TNP POC Total CO2 TNP Base Excess TNP O2 Saturation TNP O2 % 100 ABG pCO2 > 130.0 H* ABG pO2 189 H Andrew Test POS Respiration Rate O2 Delivery Device Ambu Vent Mode Tidal Volume POC PEEP POC Pressure Suppt Blood Gas Notified Whom OTHER Blood Gas Notified Time 1300 Sodium 134 L Potassium 5.4 H Chloride 102 Carbon Dioxide 25.0 Anion Gap 7 BUN 25 H Creatinine 1.10 H Estim Creat Clear Calc 38.24 Est GFR (MDRD) Af Amer 63 Est GFR (MDRD) Non-Af 52 L BUN/Creatinine Ratio 22.7 H Glucose 227 H Calcium 8.4 L Total Bilirubin AST ALT Alkaline Phosphatase Total Creatine Kinase Troponin I 0.036 Total Protein Albumin Globulin Albumin/Globulin Ratio Prealbumin Triglycerides POC Glucose 11/22/18 11/22/18 11/22/18 13:30 14:45 15:16 WBC RBC Hgb Hct MCV MCH MCHC RDW RDW Differential Plt Count MPV Immature Gran % (Auto) Neut % (Auto) Lymph % (Auto) [place] % (Auto) Eos % (Auto) Baso % (Auto) Absolute Neuts (auto) Absolute Lymphs (auto) Total Counted PT INR APTT Specimen Type ART Sample Site L Radial pH 7.33 L Bicarbonate Actual 22.6 POC Total CO2 24 Base Excess -3 L O2 Saturation 94 L O2 % 60 ABG pCO2 43.3 ABG pO2 78 Andrew Test POS Respiration Rate 14 O2 Delivery Device Vent Vent Mode A-C Tidal Volume 450 POC PEEP 5 POC Pressure Suppt Blood Gas Notified Whom OTHER Blood Gas Notified Time 1434 Sodium Potassium Chloride Carbon Dioxide Anion Gap BUN Creatinine Estim Creat Clear Calc Est GFR (MDRD) Af Amer Est GFR (MDRD) Non-Af BUN/Creatinine Ratio Glucose Calcium Total Bilirubin AST ALT Alkaline Phosphatase Total Creatine Kinase 81 Troponin I Total Protein Albumin Globulin Albumin/Globulin Ratio Prealbumin Triglycerides 166 POC Glucose 202 H 11/22/18 11/22/18 11/22/18 16:00 16:00 16:00 WBC 10.4 RBC 3.30 L Hgb 8.4 L Hct 27.2 L MCV 82.4 MCH 25.5 L MCHC 30.9 L RDW 16.3 H RDW Differential 49.4 H Plt Count 290 MPV 9.6 Immature Gran % (Auto) 0.400 Neut % (Auto) 90.5 H Lymph % (Auto) 7.6 L [place] % (Auto) 1.1 Eos % (Auto) 0.3 Baso % (Auto) 0.1 Absolute Neuts (auto) 9.5 H Absolute Lymphs (auto) 0.79 L Total Counted Not Reportable PT 15.7 H INR 1.3 APTT 32.6 Specimen Type Sample Site pH Bicarbonate Actual POC Total CO2 Base Excess O2 Saturation O2 % ABG pCO2 ABG pO2 Andrew Test Respiration Rate O2 Delivery Device Vent Mode Tidal Volume POC PEEP POC Pressure Suppt Blood Gas Notified Whom Blood Gas Notified Time Sodium Potassium Chloride Carbon Dioxide Anion Gap BUN Creatinine Estim Creat Clear Calc Est GFR (MDRD) Af Amer Est GFR (MDRD) Non-Af BUN/Creatinine Ratio Glucose Calcium Total Bilirubin AST ALT Alkaline Phosphatase Total Creatine Kinase Troponin I 0.695 H* Total Protein Albumin Globulin Albumin/Globulin Ratio Prealbumin Triglycerides POC Glucose 11/22/18 11/22/18 11/22/18 16:00 18:23 20:15 WBC RBC Hgb Hct MCV MCH MCHC RDW RDW Differential Plt Count MPV Immature Gran % (Auto) Neut % (Auto) Lymph % (Auto) [place] % (Auto) Eos % (Auto) Baso % (Auto) Absolute Neuts (auto) Absolute Lymphs (auto) Total Counted PT INR APTT Specimen Type Sample Site pH Bicarbonate Actual POC Total CO2 Base Excess O2 Saturation O2 % ABG pCO2 ABG pO2 Andrew Test Respiration Rate O2 Delivery Device Vent Mode Tidal Volume POC PEEP POC Pressure Suppt Blood Gas Notified Whom Blood Gas Notified Time Sodium 134 L Potassium 4.7 Chloride 103 Carbon Dioxide 27.0 Anion Gap 4 L BUN 26 H Creatinine 1.02 Estim Creat Clear Calc 39.43 Est GFR (MDRD) Af Amer 68 Est GFR (MDRD) Non-Af 57 L BUN/Creatinine Ratio 25.5 H Glucose 193 H Calcium 8.2 L Total Bilirubin 0.20 AST 22 ALT 19 Alkaline Phosphatase 35 L Total Creatine Kinase Troponin I 1.310 H* Total Protein 6.8 Albumin 2.3 L Globulin 4.5 H Albumin/Globulin Ratio 0.5 L Prealbumin Triglycerides POC Glucose 156 H 11/22/18 11/22/18 11/22/18 21:15 23:10 23:56 WBC RBC Hgb Hct MCV MCH MCHC RDW RDW Differential Plt Count MPV Immature Gran % (Auto) Neut % (Auto) Lymph % (Auto) [place] % (Auto) Eos % (Auto) Baso % (Auto) Absolute Neuts (auto) Absolute Lymphs (auto) Total Counted PT INR APTT Specimen Type Sample Site pH Bicarbonate Actual POC Total CO2 Base Excess O2 Saturation O2 % ABG pCO2 ABG pO2 Andrew Test Respiration Rate O2 Delivery Device Vent Mode Tidal Volume POC PEEP POC Pressure Suppt Blood Gas Notified Whom Blood Gas Notified Time Sodium Potassium Chloride Carbon Dioxide Anion Gap BUN Creatinine Estim Creat Clear Calc Est GFR (MDRD) Af Amer Est GFR (MDRD) Non-Af BUN/Creatinine Ratio Glucose Calcium Total Bilirubin AST ALT Alkaline Phosphatase Total Creatine Kinase Troponin I 1.940 H* Total Protein Albumin Globulin Albumin/Globulin Ratio Prealbumin Triglycerides POC Glucose 144 H 167 H 11/23/18 11/23/18 11/23/18 02:15 05:15 05:15 WBC 10.2 RBC 3.07 L Hgb 7.9 L Hct 24.8 L MCV 80.8 L MCH 25.7 L MCHC 31.9 L RDW 16.2 H RDW Differential 47.3 H Plt Count 272 MPV 9.7 Immature Gran % (Auto) Neut % (Auto) Lymph % (Auto) [place] % (Auto) Eos % (Auto) Baso % (Auto) Absolute Neuts (auto) Absolute Lymphs (auto) Total Counted PT INR APTT Specimen Type Sample Site pH Bicarbonate Actual POC Total CO2 Base Excess O2 Saturation O2 % ABG pCO2 ABG pO2 Andrew Test Respiration Rate O2 Delivery Device Vent Mode Tidal Volume POC PEEP POC Pressure Suppt Blood Gas Notified Whom Blood Gas Notified Time Sodium Potassium Chloride Carbon Dioxide Anion Gap BUN Creatinine Estim Creat Clear Calc Est GFR (MDRD) Af Amer Est GFR (MDRD) Non-Af BUN/Creatinine Ratio Glucose Calcium Total Bilirubin AST ALT Alkaline Phosphatase Total Creatine Kinase Troponin I 2.500 H* Total Protein Albumin Globulin Albumin/Globulin Ratio Prealbumin 13.7 L Triglycerides POC Glucose 11/23/18 11/23/18 11/23/18 05:15 05:15 05:20 WBC RBC Hgb Hct MCV MCH MCHC RDW RDW Differential Plt Count MPV Immature Gran % (Auto) Neut % (Auto) Lymph % (Auto) [place] % (Auto) Eos % (Auto) Baso % (Auto) Absolute Neuts (auto) Absolute Lymphs (auto) Total Counted PT INR APTT Specimen Type Sample Site pH Bicarbonate Actual POC Total CO2 Base Excess O2 Saturation O2 % ABG pCO2 ABG pO2 Andrew Test Respiration Rate O2 Delivery Device Vent Mode Tidal Volume POC PEEP POC Pressure Suppt Blood Gas Notified Whom Blood Gas Notified Time Sodium 137 Potassium 4.1 Chloride 105 Carbon Dioxide 25.0 Anion Gap 7 BUN 27 H Creatinine 0.88 Estim Creat Clear Calc 45.70 Est GFR (MDRD) Af Amer 81 Est GFR (MDRD) Non-Af 67 BUN/Creatinine Ratio 30.5 H Glucose 141 H Calcium 8.5 Total Bilirubin AST ALT Alkaline Phosphatase Total Creatine Kinase Troponin I 2.350 H* Total Protein Albumin Globulin Albumin/Globulin Ratio Prealbumin Triglycerides POC Glucose 131 H 11/23/18 06:08 WBC RBC Hgb Hct MCV MCH MCHC RDW RDW Differential Plt Count MPV Immature Gran % (Auto) Neut % (Auto) Lymph % (Auto) [place] % (Auto) Eos % (Auto) Baso % (Auto) Absolute Neuts (auto) Absolute Lymphs (auto) Total Counted PT INR APTT Specimen Type ART Sample Site L Radial pH 7.44 Bicarbonate Actual 23.2 POC Total CO2 24 Base Excess -1 O2 Saturation 97 O2 % 35 ABG pCO2 33.9 L ABG pO2 90 Andrew Test POS Respiration Rate O2 Delivery Device Vent Vent Mode CPAP PS Tidal Volume POC PEEP 5 POC Pressure Suppt 5 Blood Gas Notified Whom ICU MD Blood Gas Notified Time 601 Sodium Potassium Chloride Carbon Dioxide Anion Gap BUN Creatinine Estim Creat Clear Calc Est GFR (MDRD) Af Amer Est GFR (MDRD) Non-Af BUN/Creatinine Ratio Glucose Calcium Total Bilirubin AST ALT Alkaline Phosphatase Total Creatine Kinase Troponin I Total Protein Albumin Globulin Albumin/Globulin Ratio Prealbumin Triglycerides POC Glucose Clinical Impression(s) from Imaging Studies Chest X-Ray 11/22/18 13:34 IMPRESSION: Moderate diffuse pulmonary edema and small left pleural effusion. Electronically Signed: Chandler Raghu, at 15:45 EDT Tel , Service support , Medical Necessity - Tobacco Use Smoking Status: Former smoker Tobacco Use: Non-smoker Assessment/Plan All Active Problems (Last Updated 11/12/18 @ 10:48 by Kathy Olson) Hx of eye surgery (Acute) Hx of hysterectomy (Acute) Hx of carpal tunnel repair (Acute) History of repair of left hip joint (Acute) History of back surgery (Acute) Hemorrhoids (Acute) Acid reflux (Acute) Constipation (Acute) Diarrhea (Acute) Vomiting (Acute) Nausea (Acute) Abdominal pain (Acute) SOB (shortness of breath) (Acute) Heart murmur (Acute) Anxiety (Acute) Depression (Acute) Rheumatoid arthritis (Acute) Arthritis (Acute) Back problem (Acute) Diabetes (Acute) Thyroid disease (Acute) RECOMMENDATIONS: 1. Wean supplemental oxygen as tolerated 2. Antibiotics per surgery recommendations 3. Bedside swallow evaluation with initiation of p.o. diet if okay with surgery 4. Defer to surgery on pain control 5. Await repeat laboratory workup IMPRESSIONS: 1. Acute combined respiratory failure with questionable history of COPD Patient appears to be doing well at this time. Patient does report using 3 L nasal cannula while at home. Patient denied any respiratory complaints prior to surgery. Clinical suspicion for medication effect. We will continue to monitor in the intensive care unit. Possibly able to leave the intensive care unit later today pending respiratory status. 2. Hypotension Unclear etiology at this time. Patient did receive significant anesthesia. Patient also appears to have pale mucous membranes. CBC showed no substantial blood loss. Patient will be given empiric antibiotics with Levaquin and Flagyl. 3. Hidradenitis suppurativa postop day #1 Patient with extensive complicated abscess removal. Reported tissue removal of approximately 75 cm?. Patient does have wound cultures pending that will direct antibiotic coverage. Will defer to surgery for pain control and initiation of p.o. diet. Antibiotics will be directed by micro. 4. Obesity/type 2 diabetes mellitus/hyperlipidemia/rheumatoid arthritis/chronic pain syndrome/hypothyroidism Complicates care, management, recovery and prognosis. Hold off on tube feeds at this time. Can check with sliding scale insulin every 6 hours while n.p.o. Transition to q. before meals and at bedtime if patient initiated on p.o. diet. 5. Elevated troponin Unclear if this is simply demand mismatch. Patient was significantly acidotic. Defer to hospitalist on whether cardiology should be involved for possible stress test. No anticoagulation given recent surgery. TIME: 35 minutes critical care time spent addressing patient's acute combined respiratory failure, hypotension, review of all data and collaboration with care team (5:50 AM to 6 AM) Code Visit [id number]: [id number] Critical care first hour
--- NOTE | 2018-11-23 09:26 | CASEMGMT ---
RN CM Assessment Presentation: Pt presented for surgery- Hidradenitis bilateral perianal areas, excision extensive. To ICU post op. Intro role of CM and purpose of RN CM assessment to patient in room. She is awake, alert, able to participate in RN CM assessment. . Demographics, PCP and Pharmacy verified. Pt verbalized that physician recommended she may need SNF on discharge for wound care and PT/OT. Pt is reluctant. RN JUAN A spoke at length with her re: anticipated care needs and need for keeping surgical area clean and extensive dressing changes. RN CM let her know CM would be available to assist with dc planning including SNF referrals if recommended. PCP: JOSE DANIEL Rangel Preferred Pharmacy: [facility] Insurance: [employer] Prescription Benefit: yes LNOK: , [place] Living Arrangements: Pt lives in two story home. Daughter and son-in-law have upstairs bedrooms, pt has first floor set up. States she was independent in most ADL, helped her with her shower. Walk in tub is being put in bathroom. Pt also has sitz bath. Transportation: Pt can drive, but drives her to appointments because he wants to. DME: walker,Oxygen with concentrator and portability. Pt does not know which company. HHC: Had Home health in past through [facility]. Does not have preference for Home Health company if needed on dc. SNF: [facility]. Pt not ready to discuss SNF options today. If recommended, will address again with pt. Patient DC goals: Pt would like to go home with Home Health , though she verbalizes that this may not be possible and SNF may be needed. DC PLAN: undetermined. CM will continue to work with pt re: dc planning. Rika CARDONA RN ACM
--- NOTE | 2018-11-23 09:47 | NURSING ---
wound photo: sacral/elisha-rectal
--- NOTE | 2018-11-23 09:50 | ECHOCS_ITS ---
Reason For Study: S/P ND Procedure This was a 2D Doppler, Color Flow transthoracic echocardiogram. The study was technically difficult. Contrast injection was performed. Exam performed portable in patient room. Left Ventricle Normal LV size. Segmental dysfunction with preserved ejection fraction (see wall motion). The estimated ejection fraction is 55 %. There is evidence of diastolic dysfunction. Mid-Lateral : Hypokinetic. Mid-Posterior: Hypokinetic. Mid-Inferior: Hypokinetic. Mid-inferoseptal : Hypokinetic. Mid-anteroseptal : Hypokinetic. Inferior [place] : Hypokinetic. Lateral [place] : Hypokinetic. Right Ventricle Normal RV size. Normal systolic function. Atria The left atrium is mildly enlarged. Normal right atrium. No doppler evidence for ASD. Mitral Valve There is moderate mitral annular calcification. Extension of the mitral annular calcification onto the posterior mitral valve leaflet. Trivial mitral valve insufficiency. Tricuspid Valve The tricuspid valve is not well visualized. Trivial tricuspid valve insufficiency. Unable to estimate RV systolic pressure/pulmonary artery pressure due to technically difficult study. Aortic Valve The aortic valve is not well visualized. Mild focal aortic valve calcification. Pulmonic Valve The pulmonic valve is not well visualized. Great Vessels Normal sized aortic root. Pericardium/Pleural No pericardial effusion. Medication Diluted definity 2ml given slow IV push to enhance endocardial definition. MMode/2D Measurements & Calculations LVIDd: 3.8 cm IVSd: 1.2 cm LVOT diam: 2.0 cm LVIDs: 2.6 cm LVPWd: 1.1 cm RVDd: 4.6 cm FS: 30.8 % LVOT area: 3.3 cm2 Ao root diam: 3.0 cm LAV(MOD-bp): 68.5 ml LVAd ap4: 29.4 cm2 LAV(MOD-bp) Indexed: 33.8 ml/m2 EDV(MOD-sp4): 85.8 ml LAV(MOD-sp2): 80.9 ml EDV(sp4-el): 90.0 ml LAV(MOD-sp4): 54.3 ml LVAs ap4: 15.6 cm2 ESV(MOD-sp4): 32.0 ml ESV(sp4-el): 33.2 ml EF(MOD-sp4): 62.7 % EF(sp4-el): 63.1 % SV(MOD-sp4): 53.8 ml SV(sp4-el): 56.8 ml LA A4 area: 20.9 cm2 LA dimension(2D): 4.0 cm RA A4 area: 14.7 cm2 Time Measurements MV dec time: 0.30 sec Doppler Measurements & Calculations MV E max [place]incoln: 138.9 cm/sec Lat Peak E' [place]: 6.5 cm/sec Med Peak E' [place]: 7.5 cm/sec MV A max [place]: 167.0 cm/sec E/E' lat: 21.5 E/E' med: 18.4 MV E/A: 0.83 MV V2 max: 177.5 cm/sec MV P1/2t max [place]: 169.8 cm/sec Ao V2 max: 208.4 cm/sec MV max P.6 mmHg MV P1/2t: 103.9 msec Ao max P.4 mmHg MV V2 mean: 120.9 cm/sec MV dec slope: 478.5 cm/sec2 Ao V2 mean: 157.0 cm/sec MV mean P.5 mmHg MVA(P1/2t): 2.1 cm2 Ao mean P.7 mmHg MV V2 VTI: 52.5 cm Ao V2 VTI: 44.8 cm MVA(VTI): 2.2 cm2 SHANTEL(I,D): 2.5 cm2 SHANTEL(V,D): 2.4 cm2 LV V1 max: 149.9 cm/sec SV(LVOT): 112.9 ml PA V2 max: 131.8 cm/sec LV V1 max P.0 mmHg LV V1 mean P.3 mmHg LV V1 mean: 105.8 cm/sec LV V1 VTI: 34.5 cm MV P1/2t-pr_phl: 84.8 msec Interpretation Summary The study was technically difficult. Contrast injection was performed. Segmental dysfunction with preserved ejection fraction (see wall motion). The estimated ejection fraction is 55 %. The left atrium is mildly enlarged. There is moderate mitral annular calcification. Extension of the mitral annular calcification onto the posterior mitral valve leaflet. Trivial mitral valve insufficiency. Trivial tricuspid valve insufficiency. Mild focal aortic valve calcification. Unable to estimate RV systolic pressure/pulmonary artery pressure due to technically difficult study. There is evidence of diastolic dysfunction. Ordering Physician: Trae García Referring Physician: Dustin Eaton Performed By: Bridget Swain RDCS
[2018-11-23] MEDS: Insulin Lispro 100 UNIT/ML INSULN.PEN SQ ×4 (09:54→21:28)
[2018-11-23] MEDS: Insulin Human 75/25 Kwickpen 20 UNIT SC ×2 (09:56→21:26)
[2018-11-23] MEDS: Furosemide 40 MG Tablet PO (09:56)
[2018-11-23] MEDS: Docusate Sodium 100 MG Capsule PO ×2 (09:56→21:29)
[2018-11-23] MEDS: Citalopram 20 MG Tablet PO (09:56)
[2018-11-23] MEDS: Fenofibrate 48 MG Tablet PO (10:01)
[2018-11-23] MEDS: CHLORHEXIDINE GLUC 2% CLOTH 1 EACH TOWELETTE TOPICAL (10:11)
[2018-11-23] MEDS: Nystatin Powder 15gm Bottle 1 APPLIC TOPICAL ×2 (10:14→21:31)
--- NOTE | 2018-11-23 10:36 | PN_ITS ---
Subjective: Chief complaint: Follow-up after consultation for postoperative medical management. Patient seen and examined. No acute events overnight. She denied any worsening shortness of breath. Denied chest pain, palpitation, dizziness or lightheadedness. Pain at the surgical site is fairly controlled. Denies fever chills. Blood pressure and heart rate are maintained, afebrile, pulse ox is 96% on 3 L which is her baseline at home. - Physical Exam General: Alert, Oriented x3, Cooperative, - - Minimally short of breath. HEENT: Atraumatic, PERRLA, EOMI, Normocephalic Oral: Moist Mucosa, No Gingival or Mucosal Lesions/ Ulcerations Neck: Supple, No JVD, Negative Carotid Bruits, Trachea Midline, Thyroid Normal Size and Texture Lungs: Clear to auscultation, No rhonchi, No wheeze, No rales, Diminished Cardiovascular: Regular rate, Regular Rhythm, Normal S1, Normal S2, PMI Normal Abdomen: Bowel Sounds Present, Soft, Non Tender, Non-Distended, No Hepato-sple nomegaly, Obese Extremities: No clubbing, No cyanosis, No edema Skin: No rashes, Ulcer/ Wound Lymphatic: No Cervical, Supraclavicular, or Inguinal Adenopathy Neurological: Cranial nerves II-XII grossly intact, Motor Exam 5/5 strength throughout Psych/Mental Status: Normal Affect, Alert and oriented to time, place, person, mood and affect Vital Signs Temp Pulse Resp BP Pulse Ox 99 F 82 18 138/48 H 96 11/23/18 08:00 11/23/18 09:00 11/23/18 09:00 11/23/18 09:00 11/23/18 09:00 Oxygen Flow Rate (L/min) 3 Oxygen Delivery Method Nasal Cannula Weight: 223 lb 8.78 oz Body Mass Index (BMI) 39.6 Intake and Output for Last 24 Hours 11/21/18 11/22/18 11/23/18 23:59 23:59 23:59 Intake Total 3221.9 / 3221.9 933.3 / 933.3 Output Total 950 / 950 700 / 700 Balance 2271.9 / 2271.9 233.3 / 233.3 Laboratory Tests Past 24 Hrs 11/22/18 11/22/18 11/22/18 13:12 13:30 13:30 WBC RBC Hgb Hct MCV MCH MCHC RDW RDW Differential Plt Count MPV Immature Gran % (Auto) Neut % (Auto) Lymph % (Auto) [place] % (Auto) Eos % (Auto) Baso % (Auto) Absolute Neuts (auto) Absolute Lymphs (auto) Total Counted PT INR APTT Specimen Type ART Sample Site L Radial pH 6.89 L* Bicarbonate Actual TNP POC Total CO2 TNP Base Excess TNP O2 Saturation TNP O2 % 100 ABG pCO2 > 130.0 H* ABG pO2 189 H Andrew Test POS Respiration Rate O2 Delivery Device Ambu Vent Mode Tidal Volume POC PEEP POC Pressure Suppt Blood Gas Notified Whom OTHER Blood Gas Notified Time 1300 Sodium 134 L Potassium 5.4 H Chloride 102 Carbon Dioxide 25.0 Anion Gap 7 BUN 25 H Creatinine 1.10 H Estim Creat Clear Calc 38.24 Est GFR (MDRD) Af Amer 63 Est GFR (MDRD) Non-Af 52 L BUN/Creatinine Ratio 22.7 H Glucose 227 H Calcium 8.4 L Total Bilirubin AST ALT Alkaline Phosphatase Total Creatine Kinase Troponin I 0.036 Total Protein Albumin Globulin Albumin/Globulin Ratio Prealbumin Triglycerides 11/22/18 11/22/18 11/22/18 13:30 14:45 16:00 WBC RBC Hgb Hct MCV MCH MCHC RDW RDW Differential Plt Count MPV Immature Gran % (Auto) Neut % (Auto) Lymph % (Auto) [place] % (Auto) Eos % (Auto) Baso % (Auto) Absolute Neuts (auto) Absolute Lymphs (auto) Total Counted PT INR APTT Specimen Type ART Sample Site L Radial pH 7.33 L Bicarbonate Actual 22.6 POC Total CO2 24 Base Excess -3 L O2 Saturation 94 L O2 % 60 ABG pCO2 43.3 ABG pO2 78 Andrew Test POS Respiration Rate 14 O2 Delivery Device Vent Vent Mode A-C Tidal Volume 450 POC PEEP 5 POC Pressure Suppt Blood Gas Notified Whom OTHER Blood Gas Notified Time 1434 Sodium Potassium Chloride Carbon Dioxide Anion Gap BUN Creatinine Estim Creat Clear Calc Est GFR (MDRD) Af Amer Est GFR (MDRD) Non-Af BUN/Creatinine Ratio Glucose Calcium Total Bilirubin AST ALT Alkaline Phosphatase Total Creatine Kinase 81 Troponin I 0.695 H* Total Protein Albumin Globulin Albumin/Globulin Ratio Prealbumin Triglycerides 166 04/18/19 04/18/19 04/18/19 16:00 16:00 16:00 WBC 10.4 RBC 3.30 L Hgb 8.4 L Hct 27.2 L MCV 82.4 MCH 25.5 L MCHC 30.9 L RDW 16.3 H RDW Differential 49.4 H Plt Count 290 MPV 9.6 Immature Gran % (Auto) 0.400 Neut % (Auto) 90.5 H Lymph % (Auto) 7.6 L [place] % (Auto) 1.1 Eos % (Auto) 0.3 Baso % (Auto) 0.1 Absolute Neuts (auto) 9.5 H Absolute Lymphs (auto) 0.79 L Total Counted Not Reportable PT 15.7 H INR 1.3 APTT 32.6 Specimen Type Sample Site pH Bicarbonate Actual POC Total CO2 Base Excess O2 Saturation O2 % ABG pCO2 ABG pO2 Andrew Test Respiration Rate O2 Delivery Device Vent Mode Tidal Volume POC PEEP POC Pressure Suppt Blood Gas Notified Whom Blood Gas Notified Time Sodium 134 L Potassium 4.7 Chloride 103 Carbon Dioxide 27.0 Anion Gap 4 L BUN 26 H Creatinine 1.02 Estim Creat Clear Calc 39.43 Est GFR (MDRD) Af Amer 68 Est GFR (MDRD) Non-Af 57 L BUN/Creatinine Ratio 25.5 H Glucose 193 H Calcium 8.2 L Total Bilirubin 0.20 AST 22 ALT 19 Alkaline Phosphatase 35 L Total Creatine Kinase Troponin I Total Protein 6.8 Albumin 2.3 L Globulin 4.5 H Albumin/Globulin Ratio 0.5 L Prealbumin Triglycerides 11/22/18 11/22/18 11/23/18 20:15 23:10 02:15 WBC RBC Hgb Hct MCV MCH MCHC RDW RDW Differential Plt Count MPV Immature Gran % (Auto) Neut % (Auto) Lymph % (Auto) [place] % (Auto) Eos % (Auto) Baso % (Auto) Absolute Neuts (auto) Absolute Lymphs (auto) Total Counted PT INR APTT Specimen Type Sample Site pH Bicarbonate Actual POC Total CO2 Base Excess O2 Saturation O2 % ABG pCO2 ABG pO2 Andrew Test Respiration Rate O2 Delivery Device Vent Mode Tidal Volume POC PEEP POC Pressure Suppt Blood Gas Notified Whom Blood Gas Notified Time Sodium Potassium Chloride Carbon Dioxide Anion Gap BUN Creatinine Estim Creat Clear Calc Est GFR (MDRD) Af Amer Est GFR (MDRD) Non-Af BUN/Creatinine Ratio Glucose Calcium Total Bilirubin AST ALT Alkaline Phosphatase Total Creatine Kinase Troponin I 1.310 H* 1.940 H* 2.500 H* Total Protein Albumin Globulin Albumin/Globulin Ratio Prealbumin Triglycerides 11/23/18 11/23/18 11/23/18 05:15 05:15 05:15 WBC 10.2 RBC 3.07 L Hgb 7.9 L Hct 24.8 L MCV 80.8 L MCH 25.7 L MCHC 31.9 L RDW 16.2 H RDW Differential 47.3 H Plt Count 272 MPV 9.7 Immature Gran % (Auto) Neut % (Auto) Lymph % (Auto) [place] % (Auto) Eos % (Auto) Baso % (Auto) Absolute Neuts (auto) Absolute Lymphs (auto) Total Counted PT INR APTT Specimen Type Sample Site pH Bicarbonate Actual POC Total CO2 Base Excess O2 Saturation O2 % ABG pCO2 ABG pO2 Andrew Test Respiration Rate O2 Delivery Device Vent Mode Tidal Volume POC PEEP POC Pressure Suppt Blood Gas Notified Whom Blood Gas Notified Time Sodium Potassium Chloride Carbon Dioxide Anion Gap BUN Creatinine Estim Creat Clear Calc Est GFR (MDRD) Af Amer Est GFR (MDRD) Non-Af BUN/Creatinine Ratio Glucose Calcium Total Bilirubin AST ALT Alkaline Phosphatase Total Creatine Kinase Troponin I 2.350 H* Total Protein Albumin Globulin Albumin/Globulin Ratio Prealbumin 13.7 L Triglycerides 11/23/18 11/23/18 05:15 06:08 WBC RBC Hgb Hct MCV MCH MCHC RDW RDW Differential Plt Count MPV Immature Gran % (Auto) Neut % (Auto) Lymph % (Auto) [place] % (Auto) Eos % (Auto) Baso % (Auto) Absolute Neuts (auto) Absolute Lymphs (auto) Total Counted PT INR APTT Specimen Type ART Sample Site L Radial pH 7.44 Bicarbonate Actual 23.2 POC Total CO2 24 Base Excess -1 O2 Saturation 97 O2 % 35 ABG pCO2 33.9 L ABG pO2 90 Andrew Test POS Respiration Rate O2 Delivery Device Vent Vent Mode CPAP PS Tidal Volume POC PEEP 5 POC Pressure Suppt 5 Blood Gas Notified Whom ICU MD Blood Gas Notified Time 601 Sodium 137 Potassium 4.1 Chloride 105 Carbon Dioxide 25.0 Anion Gap 7 BUN 27 H Creatinine 0.88 Estim Creat Clear Calc 45.70 Est GFR (MDRD) Af Amer 81 Est GFR (MDRD) Non-Af 67 BUN/Creatinine Ratio 30.5 H Glucose 141 H Calcium 8.5 Total Bilirubin AST ALT Alkaline Phosphatase Total Creatine Kinase Troponin I Total Protein Albumin Globulin Albumin/Globulin Ratio Prealbumin Triglycerides POC Glucose 11/23/18 11/22/18 11/22/18 05:20 23:56 21:15 POC Glucose 131 H 167 H 144 H 11/22/18 11/22/18 11/22/18 18:23 15:16 12:59 POC Glucose 156 H 202 H 187 H Clinical Impression(s) from Imaging Studies Chest X-Ray 11/22/18 13:34 IMPRESSION: Moderate diffuse pulmonary edema and small left pleural effusion. Electronically Signed: Chandler Krishnamurthy, at 15:45 EDT Tel , Service support , Medical Necessity - Tobacco Use Smoking Status: Former smoker Tobacco Use: Non-smoker Assessment/Plan This is a 73 years old female patient underwent extensive excision of bilateral perianal hidradenitis and extensive excision of complicated pilonidal cyst/abscess and her postoperative course complicated by acute non-ST elevation MT and acute on chronic anemia requiring blood transfusion. #1 bilateral perianal hidradenitis/complicated pilonidal cyst/abscess: Status post extensive excision, postoperative day 1. Patient is on IV Levaquin and Flagyl. Vital signs are stable, afebrile, no leukocytosis. Wound cultures revealing gram-positive organism, final is pending. Plastic surgery is managing. #2 acute hypercapnic respiratory failure: In context of history of COPD. Patient was extubated this morning. At this time, she is maintaining her pulse ox on 3 L. Repeat ABG today revealed pH of 7.44, PCO2 of 33 and PO2 of 90. Plan to continue current treatment. #3 acute non-ST elevation MT: Troponin went high up to 2.5. EKG revealed no acute ST elevation. Patient denies any chest pain. Plan: 2D echocardiogram, cardiology consult, continue statins and losartan, hold aspirin for now. #4 acute on chronic iron deficiency anemia: Patient is aware that she has chronic anemia but she is not sure how much her baseline hemoglobin. Today's hemoglobin is 7.9 g etc. No evidence of obvious active bleeding. Serum iron and iron saturation are low. Plan to transfuse 1 unit of packed RBCs, start iron supplement, repeat CBC tomorrow morning. #5 type 2 diabetes mellitus: Blood sugar stable, continue sliding scale, hold metformin. #6 hypertension: Blood pressure stable, continue losartan, hold Lasix for now. #7 hypothyroidism: Continue levothyroxine. #8 COPD/chronic respiratory failure: She is on home oxygen at 3 L. At this time, pulse ox is maintained on 3 L. She is on albuterol as needed, DuoNeb every 6 hours as well as Pulmicort twice daily. #9 DVT prophylaxis: Subcu Lovenox. This note was generated with [employer] dictation software. It may contain incorrect words, spelling, and punctuation that were not noted in checking the note before signing. Code Visit Inpatient E&M: [id number] [facility] H[facility] L3
[2018-11-23 11:14] LABS: Ferritin 15 ng/mL (8-252); Iron 29 ug/dL (50-170); Iron Binding Capacity,Total 314 ug/dL (250-450); PERCENT IRON SATURATION 9.2 % (15.0-55.0)
[2018-11-23] MEDS: levoFLOXacin IV 250 MG/50 ML BAG 100 MG IV (11:20)
[2018-11-23] MEDS: Furosemide 40 MG/4 ML Vial IV (11:24)
[2018-11-23 11:56] LABS: Bedside Glucose 151 mg/dL (70-110)
--- NOTE | 2018-11-23 12:45 | CASEMGMT ---
RN JUAN A Note: call received from Patient's daughter that she is in room and would like to discuss dc planning. Lengthy conversation with pt and daughter re: home vs SNF. Daughter would like pt to go to SNF stating dressing changes and care would be more that she and her father could manage @ home. Pt is agreeable. They would like list for [facility]. MARK VELAZCO let pt know that OSWALDO Cummings would be up to speak with them re: SNF placement on dc. -Referral to Zoila CHACON for SNF referral. Rika MOHAMUDN RN ACM
[2018-11-23 13:05] LABS: Bedside Glucose 181 mg/dL (70-110)
--- NOTE | 2018-11-23 13:07 | CASEMGMT ---
OSWALDO spoke with patient's daughter per her request. She said they would like patient to go to TCU. OSWALDO told her that there may not be a bed available, but we won't know this until we have a better idea of when patient is ready for discharge. OSWALDO gave her a list and suggested she come up with a couple other options in the event TCU does not have a bed when she is ready. OSWALDO told her SW will follow up with them on Monday. Flor SILVERIO MSW
--- NOTE | 2018-11-23 14:50 | PN.SURG_ITS ---
Patient Problems: Active and Suspected Problems (Last Updated 11/23/18 @ 09:47 by Trae García MD) Elevated troponin (Acute) Subjective: Postop #1 Patient is resting comfortably. Was in ICU yesterday after surgery because of the need for re-intubation secondary to CO2 retention with history of COPD. Was extubated this morning and transferred to PCU. - Physical Exam General: Alert, Oriented x3 HEENT: PERRLA, EOMI Oral: Moist Mucosa Neck: Supple Abdomen: Soft, Non-Distended Skin: Ulcer/ Wound - bilateral perianal wound and sacral wound is stable. No active bleeding seen. Redressed with Aquacel Silver and moistened kerlix gauze. Will switch to saline gauze dressings after bowel movements. Neurological: Cranial nerves II-XII grossly intact Psych/Mental Status: Normal Affect, Appropriate Vital Signs Temp Pulse Resp BP Pulse Ox 98.4 F 79 16 138/56 H 92 11/23/18 13:22 11/23/18 13:30 11/23/18 13:30 11/23/18 13:22 11/23/18 13:30 Oxygen Flow Rate (L/min) 3 Oxygen Delivery Method Nasal Cannula Weight: 223 lb 8.78 oz Body Mass Index (BMI) 39.6 Intake and Output for Last 24 Hours 11/21/18 11/22/18 11/23/18 23:59 23:59 23:59 Intake Total 3221.9 / 3221.9 993.3 / 993.3 Output Total 950 / 950 1600 / 1600 Balance 2271.9 / 2271.9 -606.7 / -606.7 Microbiology Past 72 Hours 11/22/18 12:34 Gram Stain - Final Tissue - Other Wound Culture - Preliminary Gram positive organism Laboratory Tests Past 24 Hrs 11/22/18 11/22/18 11/22/18 13:12 13:30 14:45 WBC RBC Hgb Hct MCV MCH MCHC RDW RDW Differential Plt Count MPV Immature Gran % (Auto) Neut % (Auto) Lymph % (Auto) [place] % (Auto) Eos % (Auto) Baso % (Auto) Absolute Neuts (auto) Absolute Lymphs (auto) Total Counted PT INR APTT Specimen Type ART ART Sample Site L Radial L Radial pH 6.89 L* 7.33 L Bicarbonate Actual TNP 22.6 POC Total CO2 TNP 24 Base Excess TNP -3 L O2 Saturation TNP 94 L O2 % 100 60 ABG pCO2 > 130.0 H* 43.3 ABG pO2 189 H 78 Andrew Test POS POS Respiration Rate 14 O2 Delivery Device Ambu Vent Vent Mode A-C Tidal Volume 450 POC PEEP 5 POC Pressure Suppt Blood Gas Notified Whom OTHER OTHER Blood Gas Notified Time 1300 1434 Sodium Potassium Chloride Carbon Dioxide Anion Gap BUN Creatinine Estim Creat Clear Calc Est GFR (MDRD) Af Amer Est GFR (MDRD) Non-Af BUN/Creatinine Ratio Glucose Calcium Iron TIBC Iron Saturation Transferrin Ferritin Total Bilirubin AST ALT Alkaline Phosphatase Total Creatine Kinase 81 Troponin I Total Protein Albumin Globulin Albumin/Globulin Ratio Prealbumin Triglycerides 166 Blood Type Antibody Screen Crossmatch 11/22/18 11/22/18 11/22/18 16:00 16:00 16:00 WBC 10.4 RBC 3.30 L Hgb 8.4 L Hct 27.2 L MCV 82.4 MCH 25.5 L MCHC 30.9 L RDW 16.3 H RDW Differential 49.4 H Plt Count 290 MPV 9.6 Immature Gran % (Auto) 0.400 Neut % (Auto) 90.5 H Lymph % (Auto) 7.6 L [place] % (Auto) 1.1 Eos % (Auto) 0.3 Baso % (Auto) 0.1 Absolute Neuts (auto) 9.5 H Absolute Lymphs (auto) 0.79 L Total Counted Not Reportable PT 15.7 H INR 1.3 APTT 32.6 Specimen Type Sample Site pH Bicarbonate Actual POC Total CO2 Base Excess O2 Saturation O2 % ABG pCO2 ABG pO2 Andrew Test Respiration Rate O2 Delivery Device Vent Mode Tidal Volume POC PEEP POC Pressure Suppt Blood Gas Notified Whom Blood Gas Notified Time Sodium Potassium Chloride Carbon Dioxide Anion Gap BUN Creatinine Estim Creat Clear Calc Est GFR (MDRD) Af Amer Est GFR (MDRD) Non-Af BUN/Creatinine Ratio Glucose Calcium Iron TIBC Iron Saturation Transferrin Ferritin Total Bilirubin AST ALT Alkaline Phosphatase Total Creatine Kinase Troponin I 0.695 H* Total Protein Albumin Globulin Albumin/Globulin Ratio Prealbumin Triglycerides Blood Type Antibody Screen Crossmatch 11/22/18 11/22/18 11/22/18 16:00 20:15 23:10 WBC RBC Hgb Hct MCV MCH MCHC RDW RDW Differential Plt Count MPV Immature Gran % (Auto) Neut % (Auto) Lymph % (Auto) [place] % (Auto) Eos % (Auto) Baso % (Auto) Absolute Neuts (auto) Absolute Lymphs (auto) Total Counted PT INR APTT Specimen Type Sample Site pH Bicarbonate Actual POC Total CO2 Base Excess O2 Saturation O2 % ABG pCO2 ABG pO2 Andrew Test Respiration Rate O2 Delivery Device Vent Mode Tidal Volume POC PEEP POC Pressure Suppt Blood Gas Notified Whom Blood Gas Notified Time Sodium 134 L Potassium 4.7 Chloride 103 Carbon Dioxide 27.0 Anion Gap 4 L BUN 26 H Creatinine 1.02 Estim Creat Clear Calc 39.43 Est GFR (MDRD) Af Amer 68 Est GFR (MDRD) Non-Af 57 L BUN/Creatinine Ratio 25.5 H Glucose 193 H Calcium 8.2 L Iron TIBC Iron Saturation Transferrin Ferritin Total Bilirubin 0.20 AST 22 ALT 19 Alkaline Phosphatase 35 L Total Creatine Kinase Troponin I 1.310 H* 1.940 H* Total Protein 6.8 Albumin 2.3 L Globulin 4.5 H Albumin/Globulin Ratio 0.5 L Prealbumin Triglycerides Blood Type Antibody Screen Crossmatch 11/23/18 11/23/18 11/23/18 02:15 05:15 05:15 WBC 10.2 RBC 3.07 L Hgb 7.9 L Hct 24.8 L MCV 80.8 L MCH 25.7 L MCHC 31.9 L RDW 16.2 H RDW Differential 47.3 H Plt Count 272 MPV 9.7 Immature Gran % (Auto) Neut % (Auto) Lymph % (Auto) [place] % (Auto) Eos % (Auto) Baso % (Auto) Absolute Neuts (auto) Absolute Lymphs (auto) Total Counted PT INR APTT Specimen Type Sample Site pH Bicarbonate Actual POC Total CO2 Base Excess O2 Saturation O2 % ABG pCO2 ABG pO2 Andrew Test Respiration Rate O2 Delivery Device Vent Mode Tidal Volume POC PEEP POC Pressure Suppt Blood Gas Notified Whom Blood Gas Notified Time Sodium Potassium Chloride Carbon Dioxide Anion Gap BUN Creatinine Estim Creat Clear Calc Est GFR (MDRD) Af Amer Est GFR (MDRD) Non-Af BUN/Creatinine Ratio Glucose Calcium Iron TIBC Iron Saturation Transferrin Ferritin Total Bilirubin AST ALT Alkaline Phosphatase Total Creatine Kinase Troponin I 2.500 H* Total Protein Albumin Globulin Albumin/Globulin Ratio Prealbumin 13.7 L Triglycerides Blood Type Antibody Screen Crossmatch 11/23/18 11/23/18 11/23/18 05:15 05:15 05:15 WBC RBC Hgb Hct MCV MCH MCHC RDW RDW Differential Plt Count MPV Immature Gran % (Auto) Neut % (Auto) Lymph % (Auto) [place] % (Auto) Eos % (Auto) Baso % (Auto) Absolute Neuts (auto) Absolute Lymphs (auto) Total Counted PT INR APTT Specimen Type Sample Site pH Bicarbonate Actual POC Total CO2 Base Excess O2 Saturation O2 % ABG pCO2 ABG pO2 Andrew Test Respiration Rate O2 Delivery Device Vent Mode Tidal Volume POC PEEP POC Pressure Suppt Blood Gas Notified Whom Blood Gas Notified Time Sodium 137 Potassium 4.1 Chloride 105 Carbon Dioxide 25.0 Anion Gap 7 BUN 27 H Creatinine 0.88 Estim Creat Clear Calc 45.70 Est GFR (MDRD) Af Amer 81 Est GFR (MDRD) Non-Af 67 BUN/Creatinine Ratio 30.5 H Glucose 141 H Calcium 8.5 Iron 29 L TIBC 314 Iron Saturation 9.2 L Transferrin Ferritin 15 Total Bilirubin AST ALT Alkaline Phosphatase Total Creatine Kinase Troponin I 2.350 H* Total Protein Albumin Globulin Albumin/Globulin Ratio Prealbumin Triglycerides Blood Type Antibody Screen Crossmatch 11/23/18 11/23/18 11/23/18 06:08 10:58 11:35 WBC RBC Hgb Hct MCV MCH MCHC RDW RDW Differential Plt Count MPV Immature Gran % (Auto) Neut % (Auto) Lymph % (Auto) [place] % (Auto) Eos % (Auto) Baso % (Auto) Absolute Neuts (auto) Absolute Lymphs (auto) Total Counted PT INR APTT Specimen Type ART Sample Site L Radial pH 7.44 Bicarbonate Actual 23.2 POC Total CO2 24 Base Excess -1 O2 Saturation 97 O2 % 35 ABG pCO2 33.9 L ABG pO2 90 Andrew Test POS Respiration Rate O2 Delivery Device Vent Vent Mode CPAP PS Tidal Volume POC PEEP 5 POC Pressure Suppt 5 Blood Gas Notified Whom ICU MD Blood Gas Notified Time 601 Sodium Potassium Chloride Carbon Dioxide Anion Gap BUN Creatinine Estim Creat Clear Calc Est GFR (MDRD) Af Amer Est GFR (MDRD) Non-Af BUN/Creatinine Ratio Glucose Calcium Iron TIBC Iron Saturation Transferrin Pending Ferritin Total Bilirubin AST ALT Alkaline Phosphatase Total Creatine Kinase Troponin I Total Protein Albumin Globulin Albumin/Globulin Ratio Prealbumin Triglycerides Blood Type A POSITIVE Antibody Screen NEGATIVE Crossmatch See Detail POC Glucose 11/23/18 11/23/18 11/23/18 12:22 09:51 05:20 POC Glucose 181 H 151 H 131 H 11/22/18 11/22/18 11/22/18 23:56 21:15 18:23 POC Glucose 167 H 144 H 156 H 11/22/18 15:16 POC Glucose 202 H Medical Necessity - Tobacco Use Smoking Status: Former smoker Tobacco Use: Non-smoker Assessment/Plan All Active Problems (Last Updated 11/23/18 @ 09:47 by Trae García MD) Elevated troponin (Acute) 1. Hidradenitis bilateral perianal areas. 2. Extensive, complicated pilonidal cyst abscess. 3. Former smoker. 4. s/p surgical preparation bilateral perianal areas with excision hidradenitis (162.5 cm2) and excision extensive, complicated pilonidal cyst abscess (75 cm2). 5. Anemia of chronic disease, acute on chronic. Previous days events noted postoperatively. She had to be reintubated and spent the night in the ICU. She was extubated today and transferred to the PCU. Wound was re-dressed with Aquacel Silver today. Operative culture showed Gram positive organism. Continue Levaquin. Prealbumin was 13.7. Encourage nutritional supplementation with protein to help the healing process. Hgb has drifted from 8.4 to 7.9. She has anemia of chronic disease, acute on chronic. Had 250 ml of operative blood loss. Also some IV dilution. When the patient went to the bathroom, there was some wound bleeding that was easily controlled once she got back into bed. Will transfuse PRBC. Will also start iron supplementation. Reiterated to the patient the importance of taking a shower after each bowel movement to minimize stool contamination. If stool contamination becomes an issue, then she would need a diverting colostomy. She voices understanding. Recommend she go to an ECF at discharge. ECF evaluation in process.
--- NOTE | 2018-11-23 15:56 | PCM.CONS.C ---
Problem List (1) Elevated troponin Status: Acute Reason for Consult Date of Consultation: 11/23/18 History of Present Illness: The patient is a 73 year old F past medical history of [] hypertension, diabetes, hidradenitis coming to [facility] for surgery for hidradenitis in the perianal region and also complicated pilonidal cyst abscess. Patient became briefly hypotensive during surgery and required phenylephrine. She also required reintubation because of CO2 retention. She denies any chest pain. She does have history of dyspnea on exertion. Currently she is having bleeding from her operative site. Her hemoglobin is 7.9. Cardiology consult was requested because her troponin had gone up to 2.5. Patient has had stress test in the past which were all negative. She had an echocardiogram today that was reviewed. Past Medical History Allergies/Adverse Reactions: Allergies adhesive tape Allergy (Unknown, Verified 11/22/18 08:41) Unknown azithromycin [From Zithromax] Allergy (Unknown, Verified 11/22/18 08:41) Unknown cephalexin [From Keflex] Allergy (Unknown, Verified 11/22/18 08:41) Unknown Home Medications: Ambulatory Orders Medication Instructions Recorded aspirin 325 mg tablet 325 mg PO DAILY 10/25/18 atorvastatin 80 mg tablet 80 mg PO DAILY 10/25/18 bimatoprost 0.01 % eye drops 1 drp OPHTHALMIC QPM 10/25/18 citalopram 20 mg tablet 20 mg PO DAILY 10/25/18 doxycycline hyclate 100 mg capsule 100 mg PO DAILY 10/25/18 fenofibrate nanocrystallized 145 145 mg PO DAILY 10/25/18 mg tablet furosemide 40 mg tablet 40 mg PO DAILY 10/25/18 insulin human U-100 NPH-regulr 80 unit SC BID ml 10/25/18 70-30 mix 100 unit/mL subcutaneous susp levalbuterol 0.63 mg/3 mL solution 0.63 mg INHALATION ONCE PRN 10/25/18 for nebulization levothyroxine 175 mcg capsule 175 mcg PO DAILY 10/25/18 losartan 50 mg tablet 50 mg PO DAILY 10/25/18 metformin 500 mg tablet 500 mg PO BID 10/25/18 polyethylene glycol 3350 17 gram 17 g PO DAILY PRN 10/25/18 oral powder packet potassium chloride 20 mEq oral 20 meq PO DAILY 10/25/18 packet pumpkin seed extract-soy germ 300 1 cap PO PRN PRN cap 10/25/18 mg capsule ropinirole 0.5 mg tablet 0.5 mg PO QHS 10/25/18 sulfamethoxazole 800 1 tab PO BID #60 tab 11/14/18 mg-trimethoprim 160 mg tablet Past Medical History (Chronic Problems): Chronic Problems (Last Updated 11/23/18 @ 09:47 by Trae García MD) Hx of hysterectomy (Chronic) Depression (Chronic) Hypertension (Chronic) Type 2 diabetes mellitus (Chronic) Hypothyroidism (Chronic) Hidradenitis suppurativa of anus (Chronic) bilateral perianal and gluteal areas Axillary hidradenitis suppurativa (Chronic) bilateral Hidradenitis suppurativa (Chronic) bilateral inguinal hidradenitis COPD (chronic obstructive pulmonary disease) (Chronic) Hx of carpal tunnel repair (Chronic) bilateral Hemorrhoids (Chronic) Rheumatoid arthritis (Chronic) Smoking Status: Former smoker Tobacco Use: Non-smoker Review of Systems - Review of Systems Cardiovascular: Reports: Shortness of Breath with Exertion. Denies: Chest Discomfort Respiratory: Denies: Wheezing, Pleurtic Chest Pain Gastrointestinal: Denies: Hematochezia, Melena Genitourinary: Denies: Dysuria Muscoloskeletal: Denies: Myalgias, Claudication Skin: Denies: Rash, Jaundice Neurological: Denies: Dizziness, Vertigo, Confusion Psychiatric: Denies: Anxiety, Depression Endocrine: Denies: Excessive Sweating, Unexplained Weight Loss Hematologic/ Lymphatic: Denies: Lymph Node Enlargement Objective: Vital Signs Temp Pulse Resp BP Pulse Ox 98.4 F 83 18 107/50 L 94 11/23/18 14:40 11/23/18 14:54 11/23/18 14:40 11/23/18 14:40 11/23/18 14:40 Oxygen Flow Rate (L/min) 4 Oxygen Delivery Method Nasal Cannula Weight: 223 lb 8.78 oz Body Mass Index (BMI) 39.6 Intake and Output for Last 24 Hours 11/21/18 11/22/18 11/23/18 23:59 23:59 23:59 Intake Total 3221.9 / 3221.9 993.3 / 993.3 Output Total 950 / 950 1600 / 1600 Balance 2271.9 / 2271.9 -606.7 / -606.7 General: Healthy Appearing, No Acute Distress HEENT: Atraumatic Oral: Moist Mucosa Neck: Supple, No JVD Lungs: Clear to auscultation Cardiovascular: Regular Rhythm, Normal S1, Normal S2 Abdomen: Soft, Non Tender Extremities: No edema Skin: No Rashes Psych/Mental Status: Appropriate 11/22/18 13:30: Triglycerides 166 11/22/18 16:00: Troponin I 0.695 H* 11/22/18 16:00: WBC 10.4, RBC 3.30 L, Hgb 8.4 L, Hct 27.2 L, MCV 82.4, MCH 25.5 L, MCHC 30.9 L, RDW 16.3 H, RDW Differential 49.4 H, Plt Count 290, MPV 9.6, Immature Gran % (Auto) 0.400, Neut % (Auto) 90.5 H, Lymph % (Auto) 7.6 L, [place] % (Auto) 1.1, Eos % (Auto) 0.3, Baso % (Auto) 0.1, Absolute Neuts (auto) 9.5 H, Total Counted Not Reportable 11/22/18 16:00: PT 15.7 H, INR 1.3, APTT 32.6 11/22/18 16:00: Sodium 134 L, Potassium 4.7, Chloride 103, Carbon Dioxide 27.0, Anion Gap 4 L, BUN 26 H, Creatinine 1.02, Est GFR (MDRD) Af Amer 68, Est GFR (MDRD) Non-Af 57 L, BUN/Creatinine Ratio 25.5 H, Glucose 193 H, Calcium 8.2 L, Total Bilirubin 0.20 11/22/18 20:15: Troponin I 1.310 H* 11/22/18 23:10: Troponin I 1.940 H* 11/23/18 02:15: Troponin I 2.500 H* 11/23/18 05:15: WBC 10.2, RBC 3.07 L, Hgb 7.9 L, Hct 24.8 L, MCV 80.8 L, MCH 25.7 L, MCHC 31.9 L, RDW 16.2 H, RDW Differential 47.3 H, Plt Count 272, MPV 9.7 11/23/18 05:15: Troponin I 2.350 H* 11/23/18 05:15: Sodium 137, Potassium 4.1, Chloride 105, Carbon Dioxide 25.0, Anion Gap 7, BUN 27 H, Creatinine 0.88, Est GFR (MDRD) Af Amer 81, Est GFR (MDRD) Non-Af 67, BUN/Creatinine Ratio 30.5 H, Glucose 141 H, Calcium 8.5 11/23/18 05:15: Iron 29 L, TIBC 314, Iron Saturation 9.2 L, Ferritin 15 11/23/18 06:08: pH 7.44, Bicarbonate Actual 23.2, POC Total CO2 24, Base Excess -1, O2 Saturation 97, ABG pCO2 33.9 L, ABG pO2 90, Andrew Test POS Rhythm: EKG: ECHO: EF is 55% with hypokinesis of the lateral wall. Stress Test: Cardiac Cath: PCI: CT Surgery: Holter monitor: EPS: PPM: CXR: Chest CT Scan: Assessment/Plan 1. Elevated troponin?This appears to be related to her hypotension and respiratory issues perioperatively. She could have underlying CAD. However she is asymptomatic from that at this time. She is also having bleeding issues from the surgical site. At this time it would be reasonable to decrease the aspirin to 81 mg p.o. daily and continue her statin. Even though she has regional wall motion abnormalities she has overall preserved EF and is not in heart failure at this time. She is getting a blood transfusion which I agree is reasonable. She does not need any further cardiac work-up as an inpatient. She can follow-up with me as an outpatient and at that time we will consider ordering a stress test. If required, aspirin can be held as well. I will sign off at this time. If I can be of any further assistance please do not hesitate to contact me. Thank you very much for letting me participate in the care of this patient.
[2018-11-23 17:30] LABS: Bedside Glucose 219 mg/dL (70-110)
[2018-11-23] MEDS: oxyCODONE 5 MG Tablet 10 MG PO (19:25)
[2018-11-23] MEDS: Atorvastatin Calcium 80 MG Tablet PO (21:29)
[2018-11-23] MEDS: Latanoprost 0.005% 1 Bottle 1 DRP OPHTHALMIC (21:29)
[2018-11-23] MEDS: Pramipexole Di-HCl 0.25 MG Tablet PO (21:29)
[2018-11-23 21:41] LABS: Bedside Glucose 245 mg/dL (70-110)
--- NOTE | 2018-11-23 21:49 | NURSING ---
Vitals documented under TAR second 1954 should be 2054.
[2018-11-24] VITALS (13 sets, daily range): BP systolic 107–123; BP diastolic 26–55; PULSE 64–85; RESP 16–20; TEMP 36.8–37.1; O2SAT 94–97
[2018-11-24] MEDS: Levothyroxine 175 MCG Tablet PO (05:44)
[2018-11-24] MEDS: Enoxaparin 40 MG/0.4 ML Syringe SC (05:44)
[2018-11-24] MEDS: 0.9% NaCl Peripheral Flush Adult/Peds IV ×2 (05:49→23:46)
--- NOTE | 2018-11-24 05:55 | RAD_ITS ---
STUDY: X-RAY CHEST REASON FOR EXAM: Female, 73 years old. Shortness of breath TECHNIQUE: AP COMPARISON: 11/22/2018 FINDINGS: Endotracheal tube has been removed. EKG leads project over the chest. Lungs are underexpanded with persistent bronchovascular attenuation and reticulation in both lung bases. No sizable pleural effusion. There is mild cardiac enlargement. Normal mediastinum and varsha. Normal visualized pulmonary arteries. Normal visualized aortic arch and descending thoracic aorta. No acute bony process. There is no demonstrated abnormality of the visualized soft tissue structures of the upper abdomen. RAD/Chest 1 View (Portable) IMPRESSION: 1. Hypoinflation with bibasilar atelectasis. Extubation. Electronically Signed: Foster Diagle MD at 17:25 EDT , Service support ,
[2018-11-24] MEDS: Ipratropium/Albuterol Sulfate 3 ML AMPUL.NEB INHALATION ×2 (06:49→18:29)
[2018-11-24] MEDS: Budesonide Respules 0.5 MG/2 ML AMPUL.NEB. INHALATION ×2 (06:49→18:29)
[2018-11-24 06:52] LABS: Absolute Neutrophil Count 6.5 X10^3/uL (2.0-7.7); Basophil# 0.02 X10^3/uL; Basophil% 0.2 % (0-1); Eosinophil# 0.15 X10^3/uL; Eosinophils% 1.6 % (0-5); Hematocrit 29.5 % (37-47); Hemoglobin 9.2 g/dl (12.0-15.0); Lymphocyte % 22.9 % (19-41); Mean Corp Hgb Conc 31.2 g/gl (32-36); Mean Corpuscular Hgb 25.9 pg (27.0-32.0); Mean Corpuscular Volume 83.1 fL (81-99); Mean Platelet Vol. 10.5 fl (6.2-12.0); Monocyte# 0.76 X10^3/uL; Monocyte% 7.9 % (0-10); Neutrophil # 6.45 X10^3/uL (2.7-7.7); Platelet Count 277 K/mm3 (150-450); RBC Distribution Width CV 16.2 % (11.6-14.6); RBC Distribution Width SD 47.9 fl (35.1-43.9); Red Blood Count 3.55 M/mm3 (4.2-5.4); White Blood Count 9.6 K/mm3 (4.4-11.0)
[2018-11-24] MEDS: Insulin Lispro 100 UNIT/ML INSULN.PEN SQ ×4 (06:54→22:13)
[2018-11-24 06:55] LABS: International Normalized Ratio 1.3; POSITIVE COUNT NO; POSITIVE DIFFERENTIAL NO; POSITIVE MORPHOLOGY NO
[2018-11-24 06:56] LABS: Anion Gap 5 (5-15); BUN 28 mg/dL (7-18); BUN/Creat Ratio 39.6 RATIO (10-20); Calcium,Total 8.8 mg/dL (8.5-10.1); Chloride 104 mmol/L (98-107); Creatinine, Serum 0.71 mg/dL (0.55-1.02); EST Glomerular Filtration Rate 86 mL/min (>60); Est Glom Filt Rate - Afr Amer 104 mL/min (>60); Estimated Creatinine Clearance 42.07 ml/min; Glucose 153 mg/dL (74-106); Potassium 3.9 mmol/L (3.5-5.1); Sodium Level 137 mmol/L (136-145)
[2018-11-24 07:00] LABS: Bedside Glucose 150 mg/dL (70-110)
[2018-11-24] MEDS: Aspirin 81 MG TAB.CHEW PO (07:54)
--- NOTE | 2018-11-24 08:22 | PCM.PROGNOTE ---
Patient Problems: Active and Suspected Problems (Last Updated 11/23/18 @ 09:47 by Trae García MD) Elevated troponin (Acute) Subjective: Chief complaint: Follow-up after consultation for postoperative medical management. Patient seen and examined. No acute events overnight. She denied any significant complaints, breathing looks okay. Denies chest pain. Perianal pain as manageable. Her vital signs are stable. - Physical Exam General: Alert, Oriented x3, Cooperative, No apparent distress HEENT: Atraumatic, PERRLA, EOMI, Normocephalic Oral: Moist Mucosa, No Gingival or Mucosal Lesions/ Ulcerations Neck: Supple, No JVD, Negative Carotid Bruits, Trachea Midline, Thyroid Normal Size and Texture Lungs: Clear to auscultation, No rhonchi, No wheeze, No rales, Diminished Cardiovascular: Regular rate, Regular Rhythm, Normal S1, Normal S2, PMI Normal Abdomen: Bowel Sounds Present, Soft, Non Tender, Non-Distended, No Hepato-splenomegaly Extremities: No clubbing, No cyanosis, No edema Skin: No rashes, No breakdown Lymphatic: No Cervical, Supraclavicular, or Inguinal Adenopathy Neurological: Cranial nerves II-XII grossly intact, Neuro grossly intact Psych/Mental Status: Normal Affect, Appropriate, Alert and oriented to time, place, person, mood and affect Vital Signs Temp Pulse Resp BP Pulse Ox 98.5 F 85 18 107/26 L 94 11/24/18 04:04 11/24/18 06:49 11/24/18 06:49 11/24/18 04:04 11/24/18 06:49 Oxygen Flow Rate (L/min) 4 Oxygen Delivery Method Nasal Cannula Weight: 223 lb 15.834 oz Body Mass Index (BMI) 39.6 Intake and Output for Last 24 Hours 11/22/18 11/23/18 11/24/18 23:59 23:59 23:59 Intake Total 3221.9 / 3221.9 2869.3 / 2869.3 188 / 188 Output Total 950 / 950 3200 / 3200 850 / 850 Balance 2271.9 / 2271.9 -330.7 / -330.7 -662 / -662 Microbiology Past 72 Hours 11/22/18 12:34 Gram Stain - Final Tissue - Other Wound Culture - Preliminary Gram positive organism Laboratory Tests Past 24 Hrs 11/23/18 11/23/18 11/23/18 05:15 10:58 11:35 WBC RBC Hgb Hct MCV MCH MCHC RDW RDW Differential Plt Count MPV Immature Gran % (Auto) Neut % (Auto) Lymph % (Auto) [place] % (Auto) Eos % (Auto) Baso % (Auto) Absolute Neuts (auto) Absolute Lymphs (auto) Total Counted PT INR Sodium Potassium Chloride Carbon Dioxide Anion Gap BUN Creatinine Estim Creat Clear Calc Est GFR (MDRD) Af Amer Est GFR (MDRD) Non-Af BUN/Creatinine Ratio Glucose Calcium Iron 29 L TIBC 314 Iron Saturation 9.2 L Transferrin Pending Ferritin 15 Blood Type A POSITIVE Antibody Screen NEGATIVE Crossmatch See Detail 11/24/18 11/24/18 11/24/18 05:40 05:40 05:40 WBC 9.6 RBC 3.55 L Hgb 9.2 L Hct 29.5 L MCV 83.1 MCH 25.9 L MCHC 31.2 L RDW 16.2 H RDW Differential 47.9 H Plt Count 277 MPV 10.5 Immature Gran % (Auto) 0.400 Neut % (Auto) 67.0 Lymph % (Auto) 22.9 [place] % (Auto) 7.9 Eos % (Auto) 1.6 Baso % (Auto) 0.2 Absolute Neuts (auto) 6.5 Absolute Lymphs (auto) 2.20 Total Counted Not Reportable PT 16.0 H INR 1.3 Sodium 137 Potassium 3.9 Chloride 104 Carbon Dioxide 28.0 Anion Gap 5 BUN 28 H Creatinine 0.71 Estim Creat Clear Calc 42.07 Est GFR (MDRD) Af Amer 104 Est GFR (MDRD) Non-Af 86 BUN/Creatinine Ratio 39.6 H Glucose 153 H Calcium 8.8 Iron TIBC Iron Saturation Transferrin Ferritin Blood Type Antibody Screen Crossmatch POC Glucose 11/24/18 11/23/18 11/23/18 06:49 21:20 16:50 POC Glucose 150 H 245 H 219 H 11/23/18 11/23/18 12:22 09:51 POC Glucose 181 H 151 H Medical Necessity - Tobacco Use Smoking Status: Former smoker Tobacco Use: Non-smoker Assessment/Plan All Active Problems (Last Updated 11/23/18 @ 09:47 by Trae García MD) Elevated troponin (Acute) This is a 73 years old female patient underwent extensive excision of bilateral perianal hidradenitis and extensive excision of complicated pilonidal cyst/abscess and her postoperative course complicated by acute non-ST elevation SD and acute on chronic anemia requiring blood transfusion. #1 bilateral perianal hidradenitis/complicated pilonidal cyst/abscess: Status post extensive excision, postoperative day 2. Remained on IV Levaquin and Flagyl. Vital signs are stable, afebrile, no leukocytosis. Wound cultures revealing gram-positive organism, final is pending. Plastic surgery is managing. #2 acute hypercapnic respiratory failure: In context of history of COPD. Status post extubation. At this time, she is maintaining her pulse ox on 4 L. Plan to continue same treatment. #3 Elevated troponin/probable acute non-ST elevation SD: Positive, patient had transient hypotension postoperatively in the OR. Underlying CAD cannot be ruled out. 2D echocardiogram revealed ejection fraction 55%, segmental wall dysfunction. Cardiology consulted, recommended medical treatment, patient complained of no stress test in the near future. Plan to start low-dose aspirin and statins. #4 acute on chronic iron deficiency anemia: Patient is aware that she has chronic anemia but she is not sure how much her baseline hemoglobin. Today's hemoglobin is 9.2 g/dL after transfusion of 1 unit of RBCs. Stable. #5 type 2 diabetes mellitus: Blood sugar stable, continue sliding scale, keep holding metformin. #6 hypertension: Blood pressure stable, continue losartan, continue Lasix. #7 hypothyroidism: Continue levothyroxine. #8 COPD/chronic respiratory failure: She is on home oxygen at 3 L. At this time, pulse ox is maintained on 4 L. She is on albuterol as needed, DuoNeb every 6 hours as well as Pulmicort twice daily. #9 DVT prophylaxis: Subcu Lovenox. This note was generated with [employer] dictation software. It may contain incorrect words, spelling, and punctuation that were not noted in checking the note before signing. Code Visit Inpatient E&M: 01506 Subs Hosp L2
--- NOTE | 2018-11-24 08:27 | PN_ITS ---
Patient Problems: Active and Suspected Problems (Last Updated 11/23/18 @ 09:47 by Trae García MD) Elevated troponin (Acute) Subjective: Chief complaint: Follow-up after consultation for postoperative medical management. Patient seen and examined. No acute events overnight. She denied any significant complaints, breathing looks okay. Denies chest pain. Perianal pain as manageable. Her vital signs are stable. - Physical Exam General: Alert, Oriented x3, Cooperative, No apparent distress HEENT: Atraumatic, PERRLA, EOMI, Normocephalic Oral: Moist Mucosa, No Gingival or Mucosal Lesions/ Ulcerations Neck: Supple, No JVD, Negative Carotid Bruits, Trachea Midline, Thyroid Normal Size and Texture Lungs: Clear to auscultation, No rhonchi, No wheeze, No rales, Diminished Cardiovascular: Regular rate, Regular Rhythm, Normal S1, Normal S2, PMI Normal Abdomen: Bowel Sounds Present, Soft, Non Tender, Non-Distended, No Hepato-s plenomegaly Extremities: No clubbing, No cyanosis, No edema Skin: No rashes, No breakdown Lymphatic: No Cervical, Supraclavicular, or Inguinal Adenopathy Neurological: Cranial nerves II-XII grossly intact, Neuro grossly intact Psych/Mental Status: Normal Affect, Appropriate, Alert and oriented to time, place, person, mood and affect Vital Signs Temp Pulse Resp BP Pulse Ox 98.5 F 85 18 107/26 L 94 11/24/18 04:04 11/24/18 06:49 11/24/18 06:49 11/24/18 04:04 11/24/18 06:49 Oxygen Flow Rate (L/min) 4 Oxygen Delivery Method Nasal Cannula Weight: 223 lb 15.834 oz Body Mass Index (BMI) 39.6 Intake and Output for Last 24 Hours 11/22/18 11/23/18 11/24/18 23:59 23:59 23:59 Intake Total 3221.9 / 3221.9 2869.3 / 2869.3 188 / 188 Output Total 950 / 950 3200 / 3200 850 / 850 Balance 2271.9 / 2271.9 -330.7 / -330.7 -662 / -662 Microbiology Past 72 Hours 11/22/18 12:34 Gram Stain - Final Tissue - Other Wound Culture - Preliminary Gram positive organism Laboratory Tests Past 24 Hrs 11/23/18 11/23/18 11/23/18 05:15 10:58 11:35 WBC RBC Hgb Hct MCV MCH MCHC RDW RDW Differential Plt Count MPV Immature Gran % (Auto) Neut % (Auto) Lymph % (Auto) [place] % (Auto) Eos % (Auto) Baso % (Auto) Absolute Neuts (auto) Absolute Lymphs (auto) Total Counted PT INR Sodium Potassium Chloride Carbon Dioxide Anion Gap BUN Creatinine Estim Creat Clear Calc Est GFR (MDRD) Af Amer Est GFR (MDRD) Non-Af BUN/Creatinine Ratio Glucose Calcium Iron 29 L TIBC 314 Iron Saturation 9.2 L Transferrin Pending Ferritin 15 Blood Type A POSITIVE Antibody Screen NEGATIVE Crossmatch See Detail 11/24/18 11/24/18 11/24/18 05:40 05:40 05:40 WBC 9.6 RBC 3.55 L Hgb 9.2 L Hct 29.5 L MCV 83.1 MCH 25.9 L MCHC 31.2 L RDW 16.2 H RDW Differential 47.9 H Plt Count 277 MPV 10.5 Immature Gran % (Auto) 0.400 Neut % (Auto) 67.0 Lymph % (Auto) 22.9 [place] % (Auto) 7.9 Eos % (Auto) 1.6 Baso % (Auto) 0.2 Absolute Neuts (auto) 6.5 Absolute Lymphs (auto) 2.20 Total Counted Not Reportable PT 16.0 H INR 1.3 Sodium 137 Potassium 3.9 Chloride 104 Carbon Dioxide 28.0 Anion Gap 5 BUN 28 H Creatinine 0.71 Estim Creat Clear Calc 42.07 Est GFR (MDRD) Af Amer 104 Est GFR (MDRD) Non-Af 86 BUN/Creatinine Ratio 39.6 H Glucose 153 H Calcium 8.8 Iron TIBC Iron Saturation Transferrin Ferritin Blood Type Antibody Screen Crossmatch POC Glucose 11/24/18 11/23/18 11/23/18 06:49 21:20 16:50 POC Glucose 150 H 245 H 219 H 11/23/18 11/23/18 12:22 09:51 POC Glucose 181 H 151 H Medical Necessity - Tobacco Use Smoking Status: Former smoker Tobacco Use: Non-smoker Assessment/Plan All Active Problems (Last Updated 11/23/18 @ 09:47 by Trae García MD) Elevated troponin (Acute) This is a 73 years old female patient underwent extensive excision of bilateral perianal hidradenitis and extensive excision of complicated pilonidal cyst/abscess and her postoperative course complicated by acute non-ST elevation RI and acute on chronic anemia requiring blood transfusion. #1 bilateral perianal hidradenitis/complicated pilonidal cyst/abscess: Status post extensive excision, postoperative day 2. Remained on IV Levaquin and Flagyl. Vital signs are stable, afebrile, no leukocytosis. Wound cultures revealing gram-positive organism, final is pending. Plastic surgery is managing. #2 acute hypercapnic respiratory failure: In context of history of COPD. Status post extubation. At this time, she is maintaining her pulse ox on 4 L. Plan to continue same treatment. #3 Elevated troponin/probable acute non-ST elevation RI: Positive, patient had transient hypotension postoperatively in the OR. Underlying CAD cannot be ruled out. 2D echocardiogram revealed ejection fraction 55%, segmental wall dysfunction. Cardiology consulted, recommended medical treatment, patient complained of no stress test in the near future. Plan to start low-dose aspirin and statins. #4 acute on chronic iron deficiency anemia: Patient is aware that she has chron ic anemia but she is not sure how much her baseline hemoglobin. Today's hemoglobin is 9.2 g/dL after transfusion of 1 unit of RBCs. Stable. #5 type 2 diabetes mellitus: Blood sugar stable, continue sliding scale, keep holding metformin. #6 hypertension: Blood pressure stable, continue losartan, continue Lasix. #7 hypothyroidism: Continue levothyroxine. #8 COPD/chronic respiratory failure: She is on home oxygen at 3 L. At this time, pulse ox is maintained on 4 L. She is on albuterol as needed, DuoNeb every 6 hours as well as Pulmicort twice daily. #9 DVT prophylaxis: Subcu Lovenox. This note was generated with [employer] dictation software. It may contain incorrect words, spelling, and punctuation that were not noted in checking the note before signing. Code Visit Inpatient E&M: 86890 Subs Hosp L2
--- NOTE | 2018-11-24 08:53 | PN_ITS ---
Patient Problems: Active and Suspected Problems (Last Updated 11/23/18 @ 09:47 by Trae García MD) Elevated troponin (Acute) Subjective: Patient did okay overnight. Patient states pain is relatively controlled. No bleeding has been reported. Patient still requiring supplemental oxygen to maintain appropriate saturations. 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 That being said, patient states that she can desaturate at home and does have supplemental oxygen that she can use at home. - Physical Exam General: Alert, Oriented x3, Cooperative, No apparent distress, Well developed, Well nourished, - - Speaking in full sentences. HEENT: Atraumatic, PERRLA, EOMI, Normocephalic, - - No scleral icterus or injection noted. Oral: Moist Mucosa, No Gingival or Mucosal Lesions/ Ulcerations Neck: Supple, No JVD, No Nodes, Trachea Midline Lungs: No wheeze, Diminished, Rales - Right base, - - Symmetric expansion. Cardiovascular: Regular rate, Regular Rhythm, Normal S1, Normal S2, No murmurs, No rub noted, No Gallop Abdomen: Bowel Sounds Present, Soft, Non Tender, Non-Distended, Obese Extremities: No clubbing, No cyanosis, Capillary Refill Less than 3 Seconds, Edema Skin: - - Incision not evaluated. No breakdown appreciated. Musculoskeletal: No Tenderness to Palpation of Joints or Extremities Lymphatic: No Cervical, Supraclavicular, or Inguinal Adenopathy Neurological: Cranial nerves II-XII grossly intact, Neuro grossly intact, Motor Exam 5/5 strength throughout Psych/Mental Status: Alert and oriented to time, place, person, mood and affect Vital Signs Temp Pulse Resp BP Pulse Ox 36.9 C 76 18 107/26 L 96 11/24/18 04:04 11/24/18 06:56 11/24/18 06:49 11/24/18 04:04 11/24/18 08:27 Oxygen Flow Rate (L/min) 4 Oxygen Delivery Method Nasal Cannula Weight: 101.6 kg Body Mass Index (BMI) 39.6 Intake and Output for Last 24 Hours 11/22/18 11/23/18 11/24/18 23:59 23:59 23:59 Intake Total 3221.9 / 3221.9 2869.3 / 2869.3 188 / 188 Output Total 950 / 950 3200 / 3200 850 / 850 Balance 2271.9 / 2271.9 -330.7 / -330.7 -662 / -662 Microbiology Past 72 Hours 11/22/18 12:34 Gram Stain - Final Tissue - Other Wound Culture - Preliminary Gram positive organism Laboratory Tests Past 24 Hrs 11/23/18 11/23/18 11/23/18 05:15 10:58 11:35 WBC RBC Hgb Hct MCV MCH MCHC RDW RDW Differential Plt Count MPV Immature Gran % (Auto) Neut % (Auto) Lymph % (Auto) [place] % (Auto) Eos % (Auto) Baso % (Auto) Absolute Neuts (auto) Absolute Lymphs (auto) Total Counted PT INR Sodium Potassium Chloride Carbon Dioxide Anion Gap BUN Creatinine Estim Creat Clear Calc Est GFR (MDRD) Af Amer Est GFR (MDRD) Non-Af BUN/Creatinine Ratio Glucose Calcium Iron 29 L TIBC 314 Iron Saturation 9.2 L Transferrin Pending Ferritin 15 Blood Type A POSITIVE Antibody Screen NEGATIVE Crossmatch See Detail 11/24/18 11/24/18 11/24/18 05:40 05:40 05:40 WBC 9.6 RBC 3.55 L Hgb 9.2 L Hct 29.5 L MCV 83.1 MCH 25.9 L MCHC 31.2 L RDW 16.2 H RDW Differential 47.9 H Plt Count 277 MPV 10.5 Immature Gran % (Auto) 0.400 Neut % (Auto) 67.0 Lymph % (Auto) 22.9 [place] % (Auto) 7.9 Eos % (Auto) 1.6 Baso % (Auto) 0.2 Absolute Neuts (auto) 6.5 Absolute Lymphs (auto) 2.20 Total Counted Not Reportable PT 16.0 H INR 1.3 Sodium 137 Potassium 3.9 Chloride 104 Carbon Dioxide 28.0 Anion Gap 5 BUN 28 H Creatinine 0.71 Estim Creat Clear Calc 42.07 Est GFR (MDRD) Af Amer 104 Est GFR (MDRD) Non-Af 86 BUN/Creatinine Ratio 39.6 H Glucose 153 H Calcium 8.8 Iron TIBC Iron Saturation Transferrin Ferritin Blood Type Antibody Screen Crossmatch POC Glucose 11/24/18 11/23/18 11/23/18 06:49 21:20 16:50 POC Glucose 150 H 245 H 219 H 11/23/18 11/23/18 12:22 09:51 POC Glucose 181 H 151 H Medical Necessity - Tobacco Use Smoking Status: Former smoker Tobacco Use: Non-smoker Assessment/Plan All Active Problems (Last Updated 11/23/18 @ 09:47 by Trae García MD) Elevated troponin (Acute) RECOMMENDATIONS: 1. Wean supplemental oxygen as tolerated 2. Antibiotics per surgery recommendations 3. Consider diuretic therapy 4. Defer to surgery on pain control 5. Encourage incentive spirometer IMPRESSIONS: 1. Acute combined respiratory failure with questionable history of COPD Patient appears to be doing well at this time. Patient does report using 3 L nasal cannula while at home. Patient denied any respiratory complaints prior to surgery. Clinical suspicion for medication effect. Patient appears to be stable from a respiratory standpoint. Chest x-ray does show effusion versus atelectasis. Patient is up 10 pounds since admission and may benefit from diuretic therapy. Patient should have an incentive spirometer at the bedside. 2. Hypotension Results. Unclear etiology at this time. Patient did receive significant anesthesia. Patient will be given empiric antibiotics with Levaquin and Flagyl. 3. Hidradenitis suppurativa postop day #2 Patient with extensive complicated abscess removal. Reported tissue removal of approximately 75 cm?. Patient does have wound cultures pending that will direct antibiotic coverage. Will defer to surgery for pain control. Antibiotics will be directed by micro. 4. Obesity/type 2 diabetes mellitus/hyperlipidemia/rheumatoid arthritis/chronic pain syndrome/hypothyroidism Complicates care, management, recovery and prognosis. 5. Elevated troponin Unclear if this is simply demand mismatch. Patient was significantly acidotic. Defer to hospitalist on whether cardiology should be involved for possible stress test. No anticoagulation given recent surgery. Code Visit Inpatient E&M: 50143 Subs Hosp L2
[2018-11-24] MEDS: levoFLOXacin IV 250 MG/50 ML BAG 100 MG IV (09:56)
[2018-11-24] MEDS: Citalopram 20 MG Tablet PO (09:56)
[2018-11-24] MEDS: Insulin Human 75/25 Kwickpen 20 UNIT SC ×2 (09:57→22:11)
[2018-11-24] MEDS: Losartan Potassium 25 MG Tablet PO (09:57)
[2018-11-24] MEDS: Furosemide 40 MG Tablet PO (09:58)
[2018-11-24] MEDS: Fenofibrate 48 MG Tablet PO (09:59)
[2018-11-24] MEDS: Nystatin Powder 15gm Bottle 1 APPLIC TOPICAL ×2 (10:00→22:03)
[2018-11-24 11:26] LABS: Bedside Glucose 194 mg/dL (70-110)
[2018-11-24] MEDS: oxyCODONE 5 MG Tablet 10 MG PO ×2 (12:33→22:04)
[2018-11-24] MEDS: Glucerna Shake 120 ML LIQUID PO (13:43)
--- NOTE | 2018-11-24 13:56 | PCM.PN.SRG ---
Patient Problems: Active and Suspected Problems (Last Updated 11/23/18 @ 09:47 by Trae García MD) Elevated troponin (Acute) Subjective: Postop #2 Patient resting comfortably. Was able to sit in a chair without too much discomfort. - Physical Exam General: Alert, Oriented x3 HEENT: PERRLA, EOMI Oral: Moist Mucosa Neck: Supple Abdomen: Soft, Non-Distended Skin: Ulcer/ Wound - bilateral perianal wound and sacral wound is stable. No active bleeding seen. Redressed with Aquacel Silver and moistened kerlix gauze. Will switch to saline gauze dressings after bowel movements. Neurological: Cranial nerves II-XII grossly intact Psych/Mental Status: Normal Affect, Appropriate Vital Signs Temp Pulse Resp BP Pulse Ox 98.4 F 82 18 118/43 L 95 11/24/18 10:08 11/24/18 10:38 11/24/18 10:08 11/24/18 10:08 11/24/18 10:08 Oxygen Flow Rate (L/min) 4 Oxygen Delivery Method Nasal Cannula Weight: 223 lb 15.834 oz Body Mass Index (BMI) 39.6 Intake and Output for Last 24 Hours 11/22/18 11/23/18 11/24/18 23:59 23:59 23:59 Intake Total 3221.9 / 3221.9 2869.3 / 2869.3 548 / 548 Output Total 950 / 950 3200 / 3200 1350 / 1350 Balance 2271.9 / 2271.9 -330.7 / -330.7 -802 / -802 Microbiology Past 72 Hours 11/22/18 12:34 Gram Stain - Final Tissue - Other Wound Culture - Preliminary Gram Positive Cocci GPC Poss Enterococcus sp Anaerobic Culture - Preliminary Laboratory Tests Past 24 Hrs 11/23/18 11/24/18 11/24/18 11:35 05:40 05:40 WBC 9.6 RBC 3.55 L Hgb 9.2 L Hct 29.5 L MCV 83.1 MCH 25.9 L MCHC 31.2 L RDW 16.2 H RDW Differential 47.9 H Plt Count 277 MPV 10.5 Immature Gran % (Auto) 0.400 Neut % (Auto) 67.0 Lymph % (Auto) 22.9 [place] % (Auto) 7.9 Eos % (Auto) 1.6 Baso % (Auto) 0.2 Absolute Neuts (auto) 6.5 Absolute Lymphs (auto) 2.20 Total Counted Not Reportable PT 16.0 H INR 1.3 Sodium Potassium Chloride Carbon Dioxide Anion Gap BUN Creatinine Estim Creat Clear Calc Est GFR (MDRD) Af Amer Est GFR (MDRD) Non-Af BUN/Creatinine Ratio Glucose Calcium Blood Type A POSITIVE Antibody Screen NEGATIVE Crossmatch See Detail 11/24/18 05:40 WBC RBC Hgb Hct MCV MCH MCHC RDW RDW Differential Plt Count MPV Immature Gran % (Auto) Neut % (Auto) Lymph % (Auto) [place] % (Auto) Eos % (Auto) Baso % (Auto) Absolute Neuts (auto) Absolute Lymphs (auto) Total Counted PT INR Sodium 137 Potassium 3.9 Chloride 104 Carbon Dioxide 28.0 Anion Gap 5 BUN 28 H Creatinine 0.71 Estim Creat Clear Calc 42.07 Est GFR (MDRD) Af Amer 104 Est GFR (MDRD) Non-Af 86 BUN/Creatinine Ratio 39.6 H Glucose 153 H Calcium 8.8 Blood Type Antibody Screen Crossmatch POC Glucose 11/24/18 11/24/18 11/23/18 11:15 06:49 21:20 POC Glucose 194 H 150 H 245 H 11/23/18 16:50 POC Glucose 219 H Medical Necessity - Tobacco Use Smoking Status: Former smoker Tobacco Use: Non-smoker Assessment/Plan All Active Problems (Last Updated 11/23/18 @ 09:47 by Trae García MD) Elevated troponin (Acute) 1. Hidradenitis bilateral perianal areas. 2. Extensive, complicated pilonidal cyst abscess. 3. Former smoker. 4. s/p surgical preparation bilateral perianal areas with excision hidradenitis (162.5 cm2) and excision extensive, complicated pilonidal cyst abscess (75 cm2). 5. Anemia of chronic disease, acute on chronic. Wound was re-dressed with Aquacel Silver today. Operative culture showed Gram positive organism and possible Enterococcus. Continue Levaquin. Prealbumin was 13.7. Encourage nutritional supplementation with protein to help the healing process. Hgb has improved from 7.9 to 9.2 after the PRBC. She has anemia of chronic disease, acute on chronic. Had 250 ml of operative blood loss. Also some IV dilution. Continue iron supplementation. Reiterated to the patient the importance of taking a shower after each bowel movement to minimize stool contamination. If stool contamination becomes an issue, then she would need a diverting colostomy. She voices understanding. Recommend she go to an ECF at discharge. ECF evaluation in process.
[2018-11-24 16:01] LABS: Bedside Glucose 265 mg/dL (70-110)
[2018-11-24] MEDS: Atorvastatin Calcium 80 MG Tablet PO (22:03)
[2018-11-24] MEDS: Pramipexole Di-HCl 0.25 MG Tablet PO (22:03)
[2018-11-24] MEDS: Latanoprost 0.005% 1 Bottle 1 DRP OPHTHALMIC (22:04)
[2018-11-24 22:25] LABS: Bedside Glucose 250 mg/dL (70-110)
[2018-11-25] VITALS (12 sets, daily range): BP systolic 92–122; BP diastolic 35–57; PULSE 65–83; RESP 16–20; TEMP 36.7–37; O2SAT 95–99
[2018-11-25] MEDS: Enoxaparin 40 MG/0.4 ML Syringe SC (06:13)
[2018-11-25] MEDS: Levothyroxine 175 MCG Tablet PO (06:13)
[2018-11-25] MEDS: Insulin Lispro 100 UNIT/ML INSULN.PEN SQ ×4 (06:33→22:30)
[2018-11-25 06:41] LABS: Bedside Glucose 154 mg/dL (70-110)
[2018-11-25] MEDS: Aspirin 81 MG TAB.CHEW PO (07:47)
--- NOTE | 2018-11-25 07:59 | PCM.PN.PUL ---
Patient Problems: Active and Suspected Problems (Last Updated 11/23/18 @ 09:47 by Trae García MD) Elevated troponin (Acute) Subjective: Patient did okay overnight. No acute issues were reported. Patient reports no subjective change in respiratory status. Patient does report coughing and exertional dyspnea. Patient does have some coughing associated with use of incentive spirometer. Pain is relatively controlled. - Physical Exam General: Alert, Oriented x3, Cooperative, No apparent distress, - - Obese. No conversational dyspnea. HEENT: Atraumatic, PERRLA, EOMI, Normocephalic, - - No scleral icterus or injection noted Oral: Moist Mucosa, No Gingival or Mucosal Lesions/ Ulcerations Neck: Supple, No JVD, No Nodes, Trachea Midline Lungs: No rhonchi, No wheeze, No rales, Diminished, - - Symmetric expansion. No dullness to percussion. Supplemental oxygen in place. Cardiovascular: Regular rate, Regular Rhythm, Normal S1, Normal S2, No murmurs, No rub noted, No Gallop Abdomen: Bowel Sounds Present, Soft, Non Tender, Obese Extremities: No clubbing, No cyanosis, Edema Skin: - - No change from previous Musculoskeletal: No Tenderness to Palpation of Joints or Extremities Lymphatic: No Cervical, Supraclavicular, or Inguinal Adenopathy Neurological: Cranial nerves II-XII grossly intact, Neuro grossly intact, Motor Exam 5/5 strength throughout Psych/Mental Status: Alert and oriented to time, place, person, mood and affect Vital Signs Temp Pulse Resp BP Pulse Ox 36.9 C 65 18 122/35 H 98 11/25/18 03:40 11/25/18 06:46 11/25/18 03:40 11/25/18 03:40 11/25/18 03:40 Oxygen Flow Rate (L/min) 4 Oxygen Delivery Method Nasal Cannula Weight: 101.5 kg Body Mass Index (BMI) 39.6 Intake and Output for Last 24 Hours 11/23/18 11/24/18 11/25/18 23:59 23:59 23:59 Intake Total 2869.3 / 2869.3 1243 / 1243 120 / 120 Output Total 3200 / 3200 3050 / 3050 400 / 400 Balance -330.7 / -330.7 -1807 / -1807 -280 / -280 Microbiology Past 72 Hours 11/22/18 12:34 Gram Stain - Final Tissue - Other Wound Culture - Preliminary Gram Positive Cocci GPC Poss Enterococcus sp Anaerobic Culture - Preliminary POC Glucose 11/25/18 11/24/18 11/24/18 06:31 21:59 15:45 POC Glucose 154 H 250 H 265 H 11/24/18 11:15 POC Glucose 194 H Clinical Impression(s) from Imaging Studies Chest X-Ray 11/24/18 05:55 IMPRESSION: 1. Hypoinflation with bibasilar atelectasis. Extubation. Electronically Signed: Foster Daigle MD at 17:25 EDT , Service support , Medical Necessity - Tobacco Use Smoking Status: Former smoker Tobacco Use: Non-smoker Assessment/Plan All Active Problems (Last Updated 11/23/18 @ 09:47 by Trae García MD) Elevated troponin (Acute) RECOMMENDATIONS: 1. Wean supplemental oxygen as tolerated 2. Antibiotics per surgery recommendations 3. Aggressive use of incentive spirometer 4. Defer to surgery on pain control 5. Hemodynamically stable on baseline supplemental oxygen. Please call with any further questions. Will sign off IMPRESSIONS: 1. Acute combined respiratory failure with questionable history of COPD Patient appears to be doing well at this time. Patient does report using 3 L nasal cannula while at home. Patient denied any respiratory complaints prior to surgery. Clinical suspicion for medication effect. Patient appears to be stable from a respiratory standpoint. Chest x-ray does show effusion versus atelectasis. Patient is up 10 pounds since admission and may benefit from diuretic therapy. Patient should have an incentive spirometer at the bedside. Patient appears to be on baseline supplemental oxygen. Will sign off from a pulmonary perspective, but can be call back if there are any concerns. Patient is aware that incentive spirometer use will avoid future complications. 2. Hypotension Results. Unclear etiology at this time. Patient did receive significant anesthesia. Patient will be given empiric antibiotics with Levaquin and Flagyl. 3. Hidradenitis suppurativa postop day #3 Patient with extensive complicated abscess removal. Reported tissue removal of approximately 75 cm?. Patient does have wound cultures pending that will direct antibiotic coverage. Will defer to surgery for pain control. Antibiotics will be directed by micro. Consider transition to p.o. antibiotics 4. Obesity/type 2 diabetes mellitus/hyperlipidemia/rheumatoid arthritis/chronic pain syndrome/hypothyroidism Complicates care, management, recovery and prognosis. 5. Elevated troponin Unclear if this is simply demand mismatch. Patient was significantly acidotic. Defer to hospitalist on whether cardiology should be involved for possible stress test. No anticoagulation given recent surgery. Code Visit Inpatient E&M: 79813 Subs Hosp L2
--- NOTE | 2018-11-25 08:00 | PCM.PROGNOTE ---
Patient Problems: Active and Suspected Problems (Last Updated 11/23/18 @ 09:47 by Trae García MD) Elevated troponin (Acute) Subjective: Chief complaint: Follow-up after consultation for postoperative medical management. Patient seen and examined. No acute events overnight. No complaints. Her vital signs are stable. - Physical Exam General: Alert, Oriented x3, Cooperative, No apparent distress HEENT: Atraumatic, PERRLA, EOMI, Normocephalic Oral: Moist Mucosa, No Gingival or Mucosal Lesions/ Ulcerations Neck: Supple, No JVD, Negative Carotid Bruits, Trachea Midline, Thyroid Normal Size and Texture Lungs: Clear to auscultation, No rhonchi, No wheeze, No rales, Diminished Cardiovascular: Regular rate, Regular Rhythm, Normal S1, Normal S2, PMI Normal Abdomen: Bowel Sounds Present, Soft, Non Tender, Non-Distended, No Hepato-splenomegaly, Obese Extremities: No clubbing, No cyanosis, No edema Skin: No rashes, Ulcer/ Wound Lymphatic: No Cervical, Supraclavicular, or Inguinal Adenopathy Neurological: Cranial nerves II-XII grossly intact, Neuro grossly intact Psych/Mental Status: Normal Affect, Appropriate Vital Signs Temp Pulse Resp BP Pulse Ox 98.4 F 65 18 122/35 H 98 11/25/18 03:40 11/25/18 06:46 11/25/18 03:40 11/25/18 03:40 11/25/18 03:40 Oxygen Flow Rate (L/min) 4 Oxygen Delivery Method Nasal Cannula Weight: 223 lb 12.307 oz Body Mass Index (BMI) 39.6 Intake and Output for Last 24 Hours 11/23/18 11/24/18 11/25/18 23:59 23:59 23:59 Intake Total 2869.3 / 2869.3 1243 / 1243 120 / 120 Output Total 3200 / 3200 3050 / 3050 400 / 400 Balance -330.7 / -330.7 -1807 / -1807 -280 / -280 Microbiology Past 72 Hours 11/22/18 12:34 Gram Stain - Final Tissue - Other Wound Culture - Preliminary Gram Positive Cocci GPC Poss Enterococcus sp Anaerobic Culture - Preliminary POC Glucose 11/25/18 11/24/18 11/24/18 06:31 21:59 15:45 POC Glucose 154 H 250 H 265 H 04/20/19 11:15 POC Glucose 194 H Medical Necessity - Tobacco Use Smoking Status: Former smoker Tobacco Use: Non-smoker Assessment/Plan All Active Problems (Last Updated 11/23/18 @ 09:47 by Trae García MD) Elevated troponin (Acute) This is a 73 years old female patient underwent extensive excision of bilateral perianal hidradenitis and extensive excision of complicated pilonidal cyst/abscess and her postoperative course complicated by acute non-ST elevation [place] and acute on chronic anemia requiring blood transfusion. #1 bilateral perianal hidradenitis/complicated pilonidal cyst/abscess: Status post extensive excision, postoperative day 3. Remained on IV Levaquin and Flagyl. Vital signs are stable, afebrile, no leukocytosis. Wound cultures revealing gram-positive organism and enterococcus, final is pending. Plastic surgery is managing. #2 acute hypercapnic respiratory failure: In context of history of COPD. Status post extubation. At this time, she is maintaining her pulse ox on 4 L. Plan to continue same treatment. #3 Elevated troponin/probable acute non-ST elevation [place]: Attributed to transient hypotension postoperatively in the ER. She denied any chest pain. Underlying CAD cannot be ruled out. 2D echocardiogram revealed ejection fraction 55%, segmental wall dysfunction. Cardiology consulted, recommended medical treatment. She is on aspirin and statins as well as losartan. #4 acute on chronic iron deficiency anemia: Patient is aware that she has chronic anemia but she is not sure how much her baseline hemoglobin. Yesterday's hemoglobin is 9.2 g/dL after transfusion of 1 unit of RBCs. Stable. #5 type 2 diabetes mellitus: Blood sugar stable, continue sliding scale, keep holding metformin. #6 hypertension: Blood pressure stable, continue losartan, continue Lasix. #7 hypothyroidism: Continue levothyroxine. #8 COPD/chronic respiratory failure: She is on home oxygen at 3 L. At this time, pulse ox is maintained on 4 L. She is on albuterol as needed, DuoNeb every 6 hours as well as Pulmicort twice daily. #9 DVT prophylaxis: Subcu Lovenox. This note was generated with [employer] software. It may contain incorrect words, spelling, and punctuation that were not noted in checking the note before signing. Code Visit Inpatient E&M: 55222 Subs Hosp L2
--- NOTE | 2018-11-25 08:03 | PN_ITS ---
Patient Problems: Active and Suspected Problems (Last Updated 11/23/18 @ 09:47 by Trae García MD) Elevated troponin (Acute) Subjective: Chief complaint: Follow-up after consultation for postoperative medical management. Patient seen and examined. No acute events overnight. No complaints. Her vital signs are stable. - Physical Exam General: Alert, Oriented x3, Cooperative, No apparent distress HEENT: Atraumatic, PERRLA, EOMI, Normocephalic Oral: Moist Mucosa, No Gingival or Mucosal Lesions/ Ulcerations Neck: Supple, No JVD, Negative Carotid Bruits, Trachea Midline, Thyroid Normal Size and Texture Lungs: Clear to auscultation, No rhonchi, No wheeze, No rales, Diminished Cardiovascular: Regular rate, Regular Rhythm, Normal S1, Normal S2, PMI Normal Abdomen: Bowel Sounds Present, Soft, Non Tender, Non-Distended, No Hepato- splenomegaly, Obese Extremities: No clubbing, No cyanosis, No edema Skin: No rashes, Ulcer/ Wound Lymphatic: No Cervical, Supraclavicular, or Inguinal Adenopathy Neurological: Cranial nerves II-XII grossly intact, Neuro grossly intact Psych/Mental Status: Normal Affect, Appropriate Vital Signs Temp Pulse Resp BP Pulse Ox 98.4 F 65 18 122/35 H 98 11/25/18 03:40 11/25/18 06:46 11/25/18 03:40 11/25/18 03:40 11/25/18 03:40 Oxygen Flow Rate (L/min) 4 Oxygen Delivery Method Nasal Cannula Weight: 223 lb 12.307 oz Body Mass Index (BMI) 39.6 Intake and Output for Last 24 Hours 11/23/18 11/24/18 11/25/18 23:59 23:59 23:59 Intake Total 2869.3 / 2869.3 1243 / 1243 120 / 120 Output Total 3200 / 3200 3050 / 3050 400 / 400 Balance -330.7 / -330.7 -1807 / -1807 -280 / -280 Microbiology Past 72 Hours 11/22/18 12:34 Gram Stain - Final Tissue - Other Wound Culture - Preliminary Gram Positive Cocci GPC Poss Enterococcus sp Anaerobic Culture - Preliminary POC Glucose 11/25/18 11/24/18 11/24/18 06:31 21:59 15:45 POC Glucose 154 H 250 H 265 H 04/20/19 11:15 POC Glucose 194 H Medical Necessity - Tobacco Use Smoking Status: Former smoker Tobacco Use: Non-smoker Assessment/Plan All Active Problems (Last Updated 11/23/18 @ 09:47 by Trae García MD) Elevated troponin (Acute) This is a 73 years old female patient underwent extensive excision of bilateral perianal hidradenitis and extensive excision of complicated pilonidal cyst/abscess and her postoperative course complicated by acute non-ST elevation [place] and acute on chronic anemia requiring blood transfusion. #1 bilateral perianal hidradenitis/complicated pilonidal cyst/abscess: Status post extensive excision, postoperative day 3. Remained on IV Levaquin and Flagyl. Vital signs are stable, afebrile, no leukocytosis. Wound cultures revealing gram-positive organism and enterococcus, final is pending. Plastic surgery is managing. #2 acute hypercapnic respiratory failure: In context of history of COPD. Status post extubation. At this time, she is maintaining her pulse ox on 4 L. Plan to continue same treatment. #3 Elevated troponin/probable acute non-ST elevation [place]: Attributed to transient hypotension postoperatively in the ER. She denied any chest pain. Underlying CAD cannot be ruled out. 2D echocardiogram revealed ejection fraction 55%, segmental wall dysfunction. Cardiology consulted, recommended medical treatment. She is on aspirin and statins as well as losartan. #4 acute on chronic iron deficiency anemia: Patient is aware that she has chronic anemia but she is not sure how much her baseline hemoglobin. Yesterday's hemoglobin is 9.2 g/dL after transfusion of 1 unit of RBCs. Stable. #5 type 2 diabetes mellitus: Blood sugar stable, continue sliding scale, keep holding metformin. #6 hypertension: Blood pressure stable, continue losartan, continue Lasix. #7 hypothyroidism: Continue levothyroxine. #8 COPD/chronic respiratory failure: She is on home oxygen at 3 L. At this time, pulse ox is maintained on 4 L. She is on albuterol as needed, DuoNeb every 6 hours as well as Pulmicort twice daily. #9 DVT prophylaxis: Subcu Lovenox. This note was generated with [employer] software. It may contain incorrect words, spelling, and punctuation that were not noted in checking the note before signing. Code Visit Inpatient E&M: 59325 Subs Hosp L2
[2018-11-25] MEDS: levoFLOXacin IV 250 MG/50 ML BAG 100 MG IV (10:18)
[2018-11-25] MEDS: Citalopram 20 MG Tablet PO (10:19)
[2018-11-25] MEDS: Docusate Sodium 100 MG Capsule PO ×2 (10:19→21:35)
[2018-11-25] MEDS: Losartan Potassium 25 MG Tablet PO (10:19)
[2018-11-25] MEDS: Furosemide 40 MG Tablet PO (10:20)
[2018-11-25] MEDS: Insulin Human 75/25 Kwickpen 20 UNIT SC ×2 (10:25→22:31)
[2018-11-25] MEDS: Nystatin Powder 15gm Bottle 1 APPLIC TOPICAL ×2 (10:25→21:35)
[2018-11-25] MEDS: Fenofibrate 48 MG Tablet PO (10:26)
[2018-11-25] MEDS: Budesonide Respules 0.5 MG/2 ML AMPUL.NEB. INHALATION ×2 (11:24→19:41)
[2018-11-25 11:25] LABS: Bedside Glucose 234 mg/dL (70-110)
--- NOTE | 2018-11-25 12:06 | PCM.PN.SRG ---
Patient Problems: Active and Suspected Problems (Last Updated 11/23/18 @ 09:47 by Trae García MD) Elevated troponin (Acute) Subjective: Postop #3 Patient is resting comfortably. - Physical Exam General: Alert, Oriented x3 HEENT: PERRLA, EOMI Oral: Moist Mucosa Neck: Supple Abdomen: Soft, Non-Distended Skin: Ulcer/ Wound - bilateral perianal wound and sacral wound is stable. No active bleeding seen. Redressed with Aquacel Silver and moistened kerlix gauze. Will switch to saline gauze dressings after bowel movements. Neurological: Cranial nerves II-XII grossly intact Psych/Mental Status: Normal Affect, Appropriate Vital Signs Temp Pulse Resp BP Pulse Ox 98.1 F 83 16 120/52 L 95 11/25/18 09:40 11/25/18 09:40 11/25/18 09:40 11/25/18 09:40 11/25/18 09:40 Oxygen Flow Rate (L/min) 4 Oxygen Delivery Method Nasal Cannula Weight: 223 lb 12.307 oz Body Mass Index (BMI) 39.6 Intake and Output for Last 24 Hours 11/23/18 11/24/18 11/25/18 23:59 23:59 23:59 Intake Total 2869.3 / 2869.3 1243 / 1243 120 / 120 Output Total 3200 / 3200 3050 / 3050 400 / 400 Balance -330.7 / -330.7 -1807 / -1807 -280 / -280 Microbiology Past 72 Hours 11/22/18 12:34 Gram Stain - Final Tissue - Other Wound Culture - Preliminary Gram Positive Cocci Enterococcus gallinarum POC Glucose 11/25/18 11/25/18 11/24/18 11:20 06:31 21:59 POC Glucose 234 H 154 H 250 H 11/24/18 15:45 POC Glucose 265 H Medical Necessity - Tobacco Use Smoking Status: Former smoker Tobacco Use: Non-smoker Assessment/Plan All Active Problems (Last Updated 11/23/18 @ 09:47 by Trae García MD) Elevated troponin (Acute) 1. Hidradenitis bilateral perianal areas. 2. Extensive, complicated pilonidal cyst abscess. 3. Former smoker. 4. s/p surgical preparation bilateral perianal areas with excision hidradenitis (162.5 cm2) and excision extensive, complicated pilonidal cyst abscess (75 cm2). 5. Anemia of chronic disease, acute on chronic. Wound was re-dressed with Aquacel Silver today. Operative culture showed Gram positive organism and Enterococcus gallinarum. Will add unasyn to the Levaquin. Prealbumin was 13.7. Encourage nutritional supplementation with protein to help the healing process. Hgb has decreased slightly from 9.2 to 8.7. Had PRBC a couple of days ago. She has anemia of chronic disease, acute on chronic. Had 250 ml of operative blood loss. Also some IV dilution. Continue iron supplementation. Reiterated to the patient the importance of taking a shower after each bowel movement to minimize stool contamination. If stool contamination becomes an issue, then she would need a diverting colostomy. She voices understanding. Recommend she go to an ECF at discharge. ECF evaluation in process.
[2018-11-25 12:16] LABS: Hematocrit 28.8 % (37-47); Hemoglobin 8.7 g/dl (12.0-15.0); Mean Corp Hgb Conc 30.2 g/gl (32-36); Mean Platelet Vol. 9.7 fl (6.2-12.0); Platelet Count 231 K/mm3 (150-450); RBC Distribution Width CV 16.8 % (11.6-14.6); RBC Distribution Width SD 53.4 fl (35.1-43.9); Red Blood Count 3.35 M/mm3 (4.2-5.4); Scan Indicated on CBC? Y/N NO; White Blood Count 8.6 K/mm3 (4.4-11.0)
[2018-11-25 12:40] LABS: Anion Gap 2 (5-15); BUN 26 mg/dL (7-18); BUN/Creat Ratio 46.2 RATIO (10-20); Calcium,Total 8.4 mg/dL (8.5-10.1); Chloride 102 mmol/L (98-107); Creatinine, Serum 0.56 mg/dL (0.55-1.02); EST Glomerular Filtration Rate 112 mL/min (>60); Est Glom Filt Rate - Afr Amer 136 mL/min (>60); Estimated Creatinine Clearance 42.07 ml/min; Glucose 216 mg/dL (74-106); Sodium Level 133 mmol/L (136-145)
[2018-11-25] MEDS: oxyCODONE 5 MG Tablet 10 MG PO ×2 (16:00→23:00)
[2018-11-25 16:41] LABS: Bedside Glucose 173 mg/dL (70-110)
[2018-11-25] MEDS: 0.9% NaCl Peripheral Flush Adult/Peds IV (17:32)
[2018-11-25] MEDS: Ipratropium/Albuterol Sulfate 3 ML AMPUL.NEB INHALATION (19:41)
[2018-11-25] MEDS: Atorvastatin Calcium 80 MG Tablet PO (21:35)
[2018-11-25] MEDS: Pramipexole Di-HCl 0.25 MG Tablet PO (21:35)
[2018-11-25] MEDS: Latanoprost 0.005% 1 Bottle 1 DRP OPHTHALMIC (21:36)
[2018-11-25 23:01] LABS: Bedside Glucose 211 mg/dL (70-110)
[2018-11-26] VITALS (13 sets, daily range): BP systolic 100–129; BP diastolic 50–87; PULSE 63–89; RESP 16–20; TEMP 36.6–37.2; O2SAT 97–98
[2018-11-26 06:02] LABS: Hematocrit 27.8 % (37-47); Hemoglobin 8.6 g/dl (12.0-15.0); Mean Corp Hgb Conc 30.9 g/gl (32-36); Mean Corpuscular Hgb 25.9 pg (27.0-32.0); Mean Corpuscular Volume 83.7 fL (81-99); Mean Platelet Vol. 9.7 fl (6.2-12.0); Platelet Count 252 K/mm3 (150-450); RBC Distribution Width CV 16.9 % (11.6-14.6); RBC Distribution Width SD 51.7 fl (35.1-43.9); Red Blood Count 3.32 M/mm3 (4.2-5.4); White Blood Count 8.3 K/mm3 (4.4-11.0)
[2018-11-26] MEDS: oxyCODONE 5 MG Tablet 10 MG PO ×2 (06:05→21:41)
[2018-11-26] MEDS: Levothyroxine 175 MCG Tablet PO (06:06)
[2018-11-26] MEDS: Enoxaparin 40 MG/0.4 ML Syringe SC (06:06)
[2018-11-26 06:16] LABS: Scan Indicated on CBC? Y/N NO
[2018-11-26 06:30] LABS: Anion Gap 2 (5-15); BUN 19 mg/dL (7-18); Calcium,Total 8.5 mg/dL (8.5-10.1); Chloride 102 mmol/L (98-107); Creatinine, Serum 0.48 mg/dL (0.55-1.02); EST Glomerular Filtration Rate 137 mL/min (>60); Est Glom Filt Rate - Afr Amer 165 mL/min (>60); Estimated Creatinine Clearance 42.07 ml/min; Glucose 151 mg/dL (74-106); Potassium 3.7 mmol/L (3.5-5.1); Sodium Level 135 mmol/L (136-145)
[2018-11-26] MEDS: Budesonide Respules 0.5 MG/2 ML AMPUL.NEB. INHALATION ×2 (06:37→20:07)
[2018-11-26] MEDS: Ipratropium/Albuterol Sulfate 3 ML AMPUL.NEB INHALATION ×2 (06:37→20:07)
[2018-11-26] MEDS: Insulin Lispro 100 UNIT/ML INSULN.PEN SQ ×4 (06:58→21:01)
[2018-11-26 07:15] LABS: Bedside Glucose 159 mg/dL (70-110)
[2018-11-26] MEDS: Aspirin 81 MG TAB.CHEW PO (08:52)
[2018-11-26] MEDS: Losartan Potassium 25 MG Tablet PO (08:53)
[2018-11-26] MEDS: Docusate Sodium 100 MG Capsule PO ×2 (08:53→21:00)
[2018-11-26] MEDS: Citalopram 20 MG Tablet PO (08:53)
[2018-11-26] MEDS: Glucerna Shake 120 ML LIQUID PO ×3 (08:54→17:49)
[2018-11-26] MEDS: Nystatin Powder 15gm Bottle 1 APPLIC TOPICAL ×2 (08:54→21:00)
[2018-11-26] MEDS: Furosemide 40 MG Tablet PO (08:54)
[2018-11-26] MEDS: Fenofibrate 48 MG Tablet PO (08:55)
[2018-11-26] MEDS: Insulin Human 75/25 Kwickpen 20 UNIT SC ×2 (09:04→21:01)
[2018-11-26] MEDS: Iron Polysaccharide Complex 150 MG CAPSULE PO (09:04)
[2018-11-26] MEDS: levoFLOXacin IV 250 MG/50 ML BAG 100 MG IV (10:20)
--- NOTE | 2018-11-26 10:28 | PN_ITS ---
Patient Problems: Active and Suspected Problems (Last Updated 11/23/18 @ 09:47 by Trae García MD) Elevated troponin (Acute) Subjective: Patient is a 73-year-old female admitted to the hospital with perianal hidradenitis suprativa. The hospitalist service was consulted for medical management. Past medical history is significant for hidradenitis of the bilateral axillary, inguinal and perianal region, COPD, obesity, chronic respiratory failure with hypoxemia on 3 L of oxygen, hypertension, diabetes mellitus type 2. She was electively admitted for surgery. Current antibiotics include Unasyn was started on 11/25/2018, Levaquin started on 11/23/2018 and metronidazole started on 11/22/2018. She has been afebrile since admission. Blood pressures are stable. She is 97-98% saturated on 3 L nasal cannula. All lab was personally reviewed. White blood cell count is 8.3. Hemoglobin is stable at 8.6 and platelets are 252,000. MCV is 83.7 and the RDW is 16.9. BUN is 19 with a creatinine of 0.48 and a sodium of 135. She is very iron deficient with a serum ferritin of 15 and a serum iron of 29 with an iron saturation of 9.2. Microbiology: The wound culture at the time of surgery grew staph epidermidis, enterococcus gallinarum and an anaerobic coccus. Staph epidermidis and enterococcus are very rare. There were no organisms seen on the Gram stain and there were no white blood cells. The staph is methicillin sensitive. She is AF with a normal WBC and a normal diff on 11/24. No bowel movement since admission. Transfused with 1 unit of packed red blood cells since admission for a hemoglobin of 7.9 postoperatively. Echocardiogram shows segmental dysfunction with a preserved ejection fraction of 55%. Left atrium is mildly enlarged. There is trivial mitral valve insufficiency and trivial TR. There is evidence of diastolic dysfunction. PA systolic could not be estimated due to technically difficult study. She had a BM after a dulcolax suppository however unfortunately it was not sent for a hemoccult that was ordered. She had an elevated troponin to 2.5 during this admission but that was after hypotension requiring phenylephrine and reintubation due to CO2 retention. Patient was seen in consultation by [facility] and outpatient follow-up with Dr. Friend for possible stress. - Physical Exam General: Alert, Oriented x3, Cooperative, No apparent distress HEENT: Atraumatic Oral: Moist Mucosa Neck: Supple Lungs: Clear to auscultation, Diminished Cardiovascular: Regular rate, Regular Rhythm, Normal S1, Normal S2, No murmurs, No Gallop, - - Telemetry shows normal sinus rhythm with no significant ectopy Abdomen: Bowel Sounds Present, Soft, Non Tender, Non-Distended, Obese Extremities: No clubbing, No cyanosis, No edema Skin: No rashes, - - I viewed the photos of the wound taken by the wound care nurse Neurological: Cranial nerves II-XII grossly intact, Neuro grossly intact Psych/Mental Status: Normal Affect, Appropriate Vital Signs Temp Pulse Resp BP Pulse Ox 98.1 F 89 18 100/59 L 97 11/26/18 09:00 11/26/18 09:00 11/26/18 09:00 11/26/18 09:00 11/26/18 09:00 Oxygen Flow Rate (L/min) 3 Oxygen Delivery Method Room Air Weight: 219 lb 2.232 oz Body Mass Index (BMI) 39.6 Intake and Output for Last 24 Hours 11/24/18 11/25/18 11/26/18 23:59 23:59 23:59 Intake Total 1243 / 1243 935 / 935 145 / 145 Output Total 3050 / 3050 1125 / 1125 300 / 300 Balance -1807 / -1807 -190 / -190 -155 / -155 Microbiology Past 72 Hours 11/22/18 12:34 Gram Stain - Final Tissue - Other Wound Culture - Preliminary Staphylococcus epidermidis Enterococcus gallinarum Anaerobic Culture - Final Anaerobic cocci Laboratory Tests Past 24 Hrs 11/25/18 11/25/18 11/26/18 12:06 12:06 05:30 WBC 8.6 8.3 RBC 3.35 L 3.32 L Hgb 8.7 L 8.6 L Hct 28.8 L 27.8 L MCV 86.0 83.7 MCH 26.0 L 25.9 L MCHC 30.2 L 30.9 L RDW 16.8 H 16.9 H RDW Differential 53.4 H 51.7 H Plt Count 231 252 MPV 9.7 9.7 Sodium 133 L Potassium 4.0 Chloride 102 Carbon Dioxide 29.0 Anion Gap 2 L BUN 26 H Creatinine 0.56 Estim Creat Clear Calc 42.07 Est GFR (MDRD) Af Amer 136 Est GFR (MDRD) Non-Af 112 BUN/Creatinine Ratio 46.2 H Glucose 216 H Calcium 8.4 L 11/26/18 05:30 WBC RBC Hgb Hct MCV MCH MCHC RDW RDW Differential Plt Count MPV Sodium 135 L Potassium 3.7 Chloride 102 Carbon Dioxide 31.0 Anion Gap 2 L BUN 19 H Creatinine 0.48 L Estim Creat Clear Calc 42.07 Est GFR (MDRD) Af Amer 165 Est GFR (MDRD) Non-Af 137 BUN/Creatinine Ratio 40.0 H Glucose 151 H Calcium 8.5 POC Glucose 11/26/18 11/25/18 11/25/18 06:57 22:29 16:10 POC Glucose 159 H 211 H 173 H 11/25/18 11:20 POC Glucose 234 H Medical Necessity - Tobacco Use Smoking Status: Former smoker Tobacco Use: Non-smoker Assessment/Plan All Active Problems (Last Updated 11/23/18 @ 09:47 by Trae García MD) Open wound of sacroiliac region with complication (Acute) Open wound of buttock (Acute) Elevated troponin (Acute) Impressions 1. Hidradenitis of the perianal area status post I&D with excisional debridement by Dr. Eaton 2. NSTEMI-type II secondary to demand ischemia related to hypotension and acute hypercapnic respiratory failure 3. Acute hypercapnic respiratory failure 4. COPD 5. Type 2 diabetes mellitus 6. Hypertension 7. Hypothyroidism 8. Chronic respiratory failure with hypoxemia Consult Dr. Frye to manage the antibiotics - he has kept her on Unasyn only at this time Discussed a diverting colostomy with the patient and her and son. The wound is very large and she is fairly immobile. I do not think that she will be able to keep herself clean and she will have infections. Her is in agreement. She is agreeable to a diverting colostomy and requests that Dr. Serrato do the surgery. He has been consulted. Would like to do this prior to transfer to SNF. Stress test in the AM in light of recent Type II NSTEMI - if it is positive will need to re-consult cardiology Code Visit Inpatient E&M: 74172 Subs Hosp L2
--- NOTE | 2018-11-26 11:23 | PCM.HP.ID ---
Problem List (1) Hidradenitis suppurativa Status: Chronic Comment: bilateral inguinal hidradenitis Reason for Consult: infected pilonidal cyst Consulted by: Dr. Pruitt History of Present Illness: The patient is a 73 year old F with hidradenitis suppurativa, has been on doxy and bactrim, has gotten surgery on axillary involvement, admitted 11/22 for elective sacral/elisha-anal surgery with Dr. Eaton. reports several months of increased redness, pain, and bloody drainage. No fever or chills, no n/v/d. In OR, found to also have extensive loculated pilonidal abscess. Was on levaquin/flagyl, now unasyn added. Wound improving, no BM yet. Full ROS performed and neg except as noted above. - Medical History Past Medical History (Chronic Problems): Chronic Problems (Last Updated 11/23/18 @ 09:47 by Trae García MD) Hx of hysterectomy (Chronic) Depression (Chronic) Hypertension (Chronic) Type 2 diabetes mellitus (Chronic) Hypothyroidism (Chronic) Hidradenitis suppurativa of anus (Chronic) bilateral perianal and gluteal areas Axillary hidradenitis suppurativa (Chronic) bilateral Hidradenitis suppurativa (Chronic) bilateral inguinal hidradenitis COPD (chronic obstructive pulmonary disease) (Chronic) Hx of carpal tunnel repair (Chronic) bilateral Hemorrhoids (Chronic) Rheumatoid arthritis (Chronic) Allergies/Adverse Reactions: Allergies adhesive tape Allergy (Unknown, Verified 11/22/18 08:41) Unknown azithromycin [From Zithromax] Allergy (Unknown, Verified 11/22/18 08:41) Unknown cephalexin [From Keflex] Allergy (Unknown, Verified 11/22/18 08:41) Unknown Home Medications: Ambulatory Orders Medication Instructions Recorded aspirin 325 mg tablet 325 mg PO DAILY 10/25/18 atorvastatin 80 mg tablet 80 mg PO DAILY 10/25/18 bimatoprost 0.01 % eye drops 1 drp OPHTHALMIC QPM 10/25/18 citalopram 20 mg tablet 20 mg PO DAILY 10/25/18 doxycycline hyclate 100 mg capsule 100 mg PO DAILY 10/25/18 fenofibrate nanocrystallized 145 145 mg PO DAILY 10/25/18 mg tablet furosemide 40 mg tablet 40 mg PO DAILY 10/25/18 insulin human U-100 NPH-regulr 80 unit SC BID ml 10/25/18 70-30 mix 100 unit/mL subcutaneous susp levalbuterol 0.63 mg/3 mL solution 0.63 mg INHALATION ONCE PRN 10/25/18 for nebulization levothyroxine 175 mcg capsule 175 mcg PO DAILY 10/25/18 losartan 50 mg tablet 50 mg PO DAILY 10/25/18 metformin 500 mg tablet 500 mg PO BID 10/25/18 polyethylene glycol 3350 17 gram 17 g PO DAILY PRN 10/25/18 oral powder packet potassium chloride 20 mEq oral 20 meq PO DAILY 10/25/18 packet pumpkin seed extract-soy germ 300 1 cap PO PRN PRN cap 10/25/18 mg capsule ropinirole 0.5 mg tablet 0.5 mg PO QHS 10/25/18 sulfamethoxazole 800 1 tab PO BID #60 tab 11/14/18 mg-trimethoprim 160 mg tablet - Social History SMOKING STATUS:: Former smoker Vital Signs Temp Pulse Resp BP Pulse Ox 98.1 F 89 18 100/59 L 97 11/26/18 09:00 11/26/18 09:00 11/26/18 09:00 11/26/18 09:00 11/26/18 09:00 Oxygen Flow Rate (L/min) 3 Oxygen Delivery Method Room Air Weight: 99.4 kg Body Mass Index (BMI) 39.6 Microbiology Past 72 Hours 11/22/18 12:34 Gram Stain - Final Tissue - Other Wound Culture - Final Staphylococcus epidermidis Enterococcus gallinarum Anaerobic Culture - Final Anaerobic cocci Laboratory Tests Past 24 Hrs 11/25/18 11/25/18 11/26/18 12:06 12:06 05:30 WBC 8.6 8.3 RBC 3.35 L 3.32 L Hgb 8.7 L 8.6 L Hct 28.8 L 27.8 L MCV 86.0 83.7 MCH 26.0 L 25.9 L MCHC 30.2 L 30.9 L RDW 16.8 H 16.9 H RDW Differential 53.4 H 51.7 H Plt Count 231 252 MPV 9.7 9.7 Sodium 133 L Potassium 4.0 Chloride 102 Carbon Dioxide 29.0 Anion Gap 2 L BUN 26 H Creatinine 0.56 Estim Creat Clear Calc 42.07 Est GFR (MDRD) Af Amer 136 Est GFR (MDRD) Non-Af 112 BUN/Creatinine Ratio 46.2 H Glucose 216 H Calcium 8.4 L 11/26/18 05:30 WBC RBC Hgb Hct MCV MCH MCHC RDW RDW Differential Plt Count MPV Sodium 135 L Potassium 3.7 Chloride 102 Carbon Dioxide 31.0 Anion Gap 2 L BUN 19 H Creatinine 0.48 L Estim Creat Clear Calc 42.07 Est GFR (MDRD) Af Amer 165 Est GFR (MDRD) Non-Af 137 BUN/Creatinine Ratio 40.0 H Glucose 151 H Calcium 8.5 - Other Studies Radiology: [] reviewed Other Studies: [] Route of nutrition/ use of supplements: [] Nutritional Intake: [] IV Site: [] Wong Catheter: [] - Physical Exam General: Alert, Oriented x3, Cooperative, No apparent distress HEENT: Atraumatic, PERRLA, EOMI Neck: Supple, No Nodes Lungs: Clear to auscultation, Normal air movement Cardiovascular: Regular rate, Regular Rhythm Abdomen: Soft, Non Tender, Non-Distended Extremities: No edema Skin: Ulcer/ Wound - reviewed photos of sacral surg site Musculoskeletal: No Tenderness to Palpation of Joints or Extremities Neurological: Cranial nerves II-XII grossly intact - Assessment/Plan Antibiotics: [] Assessment/Plan: [] Active and Suspected Problems (Last Updated 11/23/18 @ 09:47 by Trae García MD) Elevated troponin (Acute) Hidradenitis suppurativa with extensive sacral pilonidal abscess, now s/p I&D by Dr. Eaton 11/22/18. Surg cx with MSSE, Enterococcus galinarium, and anaerobes. No fever, normal wbc. Given elisha-anal involvement, high concern for stool contamination once she starts having bowel movements. Would recommend gen surg eval for diverting ostomy in order to help this heal. Cont unasyn, will stop levaquin and flagyl. Will follow, thank you.
[2018-11-26 11:25] LABS: Bedside Glucose 264 mg/dL (70-110)
[2018-11-26] MEDS: Bisacodyl 10 MG Suppository RECTAL (11:27)
[2018-11-26 11:29] LABS: Transferrin 257 mg/dL (200-370)
--- NOTE | 2018-11-26 12:12 | NURSING ---
wound photo: sacrum/elisha-rectal area
--- NOTE | 2018-11-26 15:39 | CASEMGMT ---
OSWALDO spoke with [facility] in TCU and they should have a bed for patient. However, a medication change may need to be made. OSWALDO will have to follow up with Dr Frye. OSWALDO let patient and her know this information. Flor SILVERIO MSW
[2018-11-26 16:35] LABS: Bedside Glucose 194 mg/dL (70-110)
--- NOTE | 2018-11-26 20:53 | PN.SURG_ITS ---
Patient Problems: Active and Suspected Problems (Last Updated 11/23/18 @ 09:47 by Trae García MD) Elevated troponin (Acute) Subjective: Postop #4 Patient is resting comfortably. - Physical Exam General: Alert, Oriented x3 HEENT: PERRLA, EOMI Oral: Moist Mucosa Neck: Supple Abdomen: Soft, Non-Distended Skin: Ulcer/ Wound - bilateral perianal wound and sacral wound is stable. No active bleeding seen. Redressed with Aquacel Silver and moistened kerlix gauze. Will switch to saline gauze dressings after bowel movements. Neurological: Cranial nerves II-XII grossly intact Psych/Mental Status: Normal Affect, Appropriate Vital Signs Temp Pulse Resp BP Pulse Ox 98.9 F 89 20 H 127/56 H 97 11/26/18 18:38 11/26/18 20:07 11/26/18 20:07 11/26/18 18:38 11/26/18 18:38 Oxygen Flow Rate (L/min) 3 Oxygen Delivery Method Nasal Cannula Weight: 219 lb 2.232 oz Body Mass Index (BMI) 39.6 Intake and Output for Last 24 Hours 11/24/18 11/25/18 11/26/18 23:59 23:59 23:59 Intake Total 1243 / 1243 935 / 935 1651 / 1651 Output Total 3050 / 3050 1125 / 1125 1300 / 1300 Balance -1807 / -1807 -190 / -190 351 / 351 Microbiology Past 72 Hours 11/22/18 12:34 Gram Stain - Final Tissue - Other Wound Culture - Final Staphylococcus epidermidis Enterococcus gallinarum Anaerobic Culture - Final Anaerobic cocci Laboratory Tests Past 24 Hrs 11/23/18 11/26/18 11/26/18 10:58 05:30 05:30 WBC 8.3 RBC 3.32 L Hgb 8.6 L Hct 27.8 L MCV 83.7 MCH 25.9 L MCHC 30.9 L RDW 16.9 H RDW Differential 51.7 H Plt Count 252 MPV 9.7 Sodium 135 L Potassium 3.7 Chloride 102 Carbon Dioxide 31.0 Anion Gap 2 L BUN 19 H Creatinine 0.48 L Estim Creat Clear Calc 42.07 Est GFR (MDRD) Af Amer 165 Est GFR (MDRD) Non-Af 137 BUN/Creatinine Ratio 40.0 H Glucose 151 H Calcium 8.5 Transferrin 257 POC Glucose 11/26/18 11/26/18 11/26/18 16:09 11:21 06:57 POC Glucose 194 H 264 H 159 H 11/25/18 22:29 POC Glucose 211 H Medical Necessity - Tobacco Use Smoking Status: Former smoker Tobacco Use: Non-smoker Assessment/Plan All Active Problems (Last Updated 11/23/18 @ 09:47 by Trae García MD) Open wound of sacroiliac region with complication (Acute) Open wound of buttock (Acute) Elevated troponin (Acute) 1. Hidradenitis bilateral perianal areas. 2. Extensive, complicated pilonidal cyst abscess. 3. Former smoker. 4. s/p surgical preparation bilateral perianal areas with excision hidradenitis (162.5 cm2) and excision extensive, complicated pilonidal cyst abscess (75 cm2). 5. Anemia of chronic disease, acute on chronic. Wound was re-dressed with Aquacel Silver today. Operative culture showed Staphylococcus epidermidis and Enterococcus gallinarum and Anaerobic cocci. Continue the Unasyn. The Levaquin and Flagyl have been stopped. Infectious Diseases involved with antibiotic management. Prealbumin was 13.7. Encourage nutritional supplementation with protein to help the healing process. Hgb is stable at 8.6, down from 8.7. Had PRBC a few days ago. She has anemia of chronic disease, acute on chronic. Had 250 ml of operative blood loss. Also some IV dilution. Continue iron supplementation. Reiterated to the patient the importance of taking a shower after each bowel movement to minimize stool contamination. If stool contamination becomes an i ssue, then she would need a diverting colostomy. She voices understanding. It has been reported that when she had a bowel movement today, the irrigation was painful and with her shoulder injury, it will be difficult to maintain a clean wound consistently. She is at increased risk for stool contamination. So instead of waiting until she gets a bad infection that may be life threatening, I discussed a temporary diverting colostomy with the patient. She is agreeable. She has concerns about the anesthetic because of what happened last time that required re-intubation and transfer to the ICU. Dr. Serrato will evaluate the patient tomorrow. Recommend she go to an ECF at discharge. ECF evaluation in process.
[2018-11-26] MEDS: Pramipexole Di-HCl 0.25 MG Tablet PO (21:00)
[2018-11-26] MEDS: Atorvastatin Calcium 80 MG Tablet PO (21:00)
[2018-11-26] MEDS: Latanoprost 0.005% 1 Bottle 1 DRP OPHTHALMIC (21:01)
[2018-11-26 21:11] LABS: Bedside Glucose 228 mg/dL (70-110)
[2018-11-27] VITALS (13 sets, daily range): BP systolic 106–141; BP diastolic 43–60; PULSE 58–88; RESP 16–20; TEMP 36.6–36.8; O2SAT 89–100
[2018-11-27 04:45] LABS: Hematocrit 27.4 % (37-47); Hemoglobin 8.5 g/dl (12.0-15.0); Mean Corpuscular Hgb 25.8 pg (27.0-32.0); Mean Platelet Vol. 9.3 fl (6.2-12.0); Platelet Count 261 K/mm3 (150-450); RBC Distribution Width CV 16.8 % (11.6-14.6); White Blood Count 7.1 K/mm3 (4.4-11.0)
[2018-11-27 04:46] LABS: Scan Indicated on CBC? Y/N NO
[2018-11-27 04:55] LABS: International Normalized Ratio 1.3; Prothrombin Time (Protime)PT. 15.9 SECONDS (11.7-14.9)
[2018-11-27 04:56] LABS: Partial Thromboplast Time 34.3 Seconds (24.1-36.2)
[2018-11-27 05:11] LABS: Anion Gap 4 (5-15); BUN 19 mg/dL (7-18); BUN/Creat Ratio 43.7 RATIO (10-20); Calcium,Total 8.5 mg/dL (8.5-10.1); Chloride 102 mmol/L (98-107); Creatinine, Serum 0.44 mg/dL (0.55-1.02); EST Glomerular Filtration Rate 151 mL/min (>60); Est Glom Filt Rate - Afr Amer 183 mL/min (>60); Estimated Creatinine Clearance 42.07 ml/min; Glucose 144 mg/dL (74-106); Potassium 3.7 mmol/L (3.5-5.1); Sodium Level 138 mmol/L (136-145)
[2018-11-27] MEDS: oxyCODONE 5 MG Tablet 10 MG PO ×3 (05:30→23:44)
[2018-11-27] MEDS: Levothyroxine 175 MCG Tablet PO (05:31)
[2018-11-27] MEDS: Aspirin 81 MG TAB.CHEW PO (05:31)
[2018-11-27] MEDS: Losartan Potassium 25 MG Tablet PO (05:31)
--- NOTE | 2018-11-27 05:55 | EKG12_ITS ---
Test Reason : AM EKG Blood Pressure : / mmHG Vent. Rate : 070 BPM Atrial Rate : 070 BPM P-R Int : 200 ms QRS Dur : 106 ms QT Int : 382 ms P-R-T Axes : 014 -13 -19 degrees QTc Int : 412 ms Normal sinus rhythm Incomplete left bundle branch block Nonspecific T wave abnormality Abnormal ECG When compared with ECG of 22-NOV-2018 13:33, MANUAL COMPARISON REQUIRED, DATA IS UNCONFIRMED Confirmed by NASEEM SALEEM ([id number]), general expeditor MARYANNE TIJERINA ([id number]) on 11/29/2018 11:19:05 AM Referred By: Dustin Eaton Confirmed By:NASEEM SALEEM
[2018-11-27 06:45] LABS: Bedside Glucose 140 mg/dL (70-110)
[2018-11-27] MEDS: Ipratropium/Albuterol Sulfate 3 ML AMPUL.NEB INHALATION ×2 (06:54→19:09)
[2018-11-27] MEDS: Budesonide Respules 0.5 MG/2 ML AMPUL.NEB. INHALATION ×2 (06:54→19:08)
--- NOTE | 2018-11-27 08:34 | PN_ITS ---
Patient Problems: Active and Suspected Problems (Last Reviewed 11/27/18 @ 15:09 by Eula Tirado PA-C) Elevated troponin (Acute) Subjective: Day #3 Unasyn Afebrile. She is 100% saturated on a 3 L nasal cannula today. Vital signs are stable. White blood cell count remains normal at 7.1. Hemoglobin is stable at 8.5 and platelets are within normal limits. Creatinine is stable at 0.44. Blood sugars are high at lunchtime and at bedtime and insulin was adjusted yesterday. Stress test is ordered for today. If the stress test is abnormal she will likely need a cardiac catheterization prior to surgery and we will consult [facility]. She will be seen in consultation by Dr. Serrato for possible diverting colostomy. She is very upset today and thinks we are trying to force her into a surgery she does not want. She was reassured that we are only presenting the risks and benefits of tx vs non-treatment and that the decision will be hers. She is under the impression that her and dtr will be able to care for her at home and keep her clean so she will not get an infection. She was told by Sarah that a wound vac could not be applied if she did not have a diverting colostomy because without a dressing over the anus the seal would not happen. Objective: Physical Exam General: Alert, Oriented x3, very upset talking about cardiac cath and diverting colostomy....tearful and argumentative HEENT: Atraumatic Oral: Moist Mucosa Neck: Supple Lungs: Diminished with bibasilar crackles, no wheezes, no rhonchi Cardiovascular: Regular rate, Regular Rhythm, Normal S1, Normal S2, No murmurs, No Gallop, - - Telemetry shows normal sinus rhythm with no significant ectopy Abdomen: Bowel Sounds Present, Soft, Non Tender, Non-Distended, Obese Extremities: No clubbing, No cyanosis, No edema Skin: No rashes, the wound is granulating and there is no purulent DC, no odor, no erythema at the wound margins. Neurological: Cranial nerves II-XII grossly intact, Neuro grossly intact Psych/Mental Status: Normal Affect, Appropriate - Physical Exam Vital Signs Temp Pulse Resp BP Pulse Ox 98.0 F 60 20 H 136/53 H 98 11/27/18 05:30 11/27/18 06:54 04/23/19 06:54 11/27/18 05:30 11/27/18 06:54 Oxygen Flow Rate (L/min) 3 Oxygen Delivery Method Nasal Cannula Weight: 222 lb 0.088 oz Body Mass Index (BMI) 39.6 Intake and Output for Last 24 Hours 11/25/18 11/26/18 11/27/18 23:59 23:59 23:59 Intake Total 935 / 935 2089 / 2089 150 / 150 Output Total 1125 / 1125 1650 / 1650 500 / 500 Balance -190 / -190 439 / 439 -350 / -350 Microbiology Past 72 Hours 11/22/18 12:34 Gram Stain - Final Tissue - Other Wound Culture - Final Staphylococcus epidermidis Enterococcus gallinarum Anaerobic Culture - Final Anaerobic cocci Laboratory Tests Past 24 Hrs 11/23/18 11/27/18 11/27/18 10:58 04:26 04:26 WBC 7.1 RBC 3.30 L Hgb 8.5 L Hct 27.4 L MCV 83.0 MCH 25.8 L MCHC 31.0 L RDW 16.8 H RDW Differential 51.0 H Plt Count 261 MPV 9.3 PT INR APTT Sodium 138 Potassium 3.7 Chloride 102 Carbon Dioxide 32.0 Anion Gap 4 L BUN 19 H Creatinine 0.44 L Estim Creat Clear Calc 42.07 Est GFR (MDRD) Af Amer 183 Est GFR (MDRD) Non-Af 151 BUN/Creatinine Ratio 43.7 H Glucose 144 H Calcium 8.5 Transferrin 257 11/27/18 04:26 WBC RBC Hgb Hct MCV MCH MCHC RDW RDW Differential Plt Count MPV PT 15.9 H INR 1.3 APTT 34.3 Sodium Potassium Chloride Carbon Dioxide Anion Gap BUN Creatinine Estim Creat Clear Calc Est GFR (MDRD) Af Amer Est GFR (MDRD) Non-Af BUN/Creatinine Ratio Glucose Calcium Transferrin POC Glucose 11/27/18 11/26/18 11/26/18 06:34 20:59 16:09 POC Glucose 140 H 228 H 194 H 11/26/18 11:21 POC Glucose 264 H Medical Necessity - Tobacco Use Smoking Status: Former smoker Tobacco Use: Non-smoker Assessment/Plan All Active Problems (Last Reviewed 11/27/18 @ 15:09 by Eula Tirado PA-C) Open wound of sacroiliac region with complication (Acute) Open wound of buttock (Acute) Elevated troponin (Acute) Impressions 1. Hidradenitis of the perianal area status post I&D with excisional debridement by Dr. Eaton 2. NSTEMI-type II secondary to demand ischemia related to hypotension and acute hypercapnic respiratory failure 3. Acute hypercapnic respiratory failure 4. COPD 5. Type 2 diabetes mellitus 6. Hypertension 7. Hypothyroidism 8. Chronic respiratory failure with hypoxemia 9. Abnormal nuclear stress test Dr. Garcias will discuss cardiac catheterization with her today and if she is agreeable scheduled for the a.m. She is too upset to further discuss a diverting colostomy. she had a terrible experience after the surgery to excise hydradenitis.......woke up intubated and strapped to the Bed.....now does not want to have any further surgery. Will schedule a family meeting in the next 24-48 hours Recheck lab in the AM Code Visit Inpatient E&M: [id number] Subs Hosp L2
--- NOTE | 2018-11-27 11:23 | STRESSREP ---
Stress Test Report Date: 11-27-18 Procedure: Pharmacologic stress nuclear imaging study Indications: Non-ST segment elevation MO Consent: Per the patient Procedure: The patient underwent pharmacologic (Regadenoson) evaluation with a peak heart rate of 89 beats per minute (60 %predicted maximal heart rate) and a peak blood pressure of 130/68 mmHg. The baseline ECG demonstrated normal sinus rhythm; poor R wave progression; anterior MO of indeterminate age cannot be excluded. The peak pharmacologic ECG demonstrated no obvious ECG changes. There were no cardiac dysrhythmias pretest, during pharmacologic infusion, or recovery. There was no complaint of chest discomfort during pharmacologic infusion or recovery. The examination was discontinued secondary to completion of protocol. Impression: 1. Pharmacologic (Regadenoson) evaluation 2. Peak pharmacologic ECG with no obvious ECG changes. 3. There were no cardiac dysrhythmias pretest, during pharmacologic infusion, or recovery. 4. Nuclear images pending Myocardial perfusion imaging study: Technique: The patient was injected with 14.1 millicuries of technetium 99m Cardiolite and subsequently rest SPECT Cardiolite nuclear imaging was obtained in the horizontal long, vertical long, and short axis views. The patient underwent pharmacologic (Regadenoson) evaluation with a peak heart rate of 89 beats per minute (60 % percent predicted maximal heart rate) and a peak blood pressure of 130/68 mmHg. The patient was injected with 44.6 millicuries of technetium 99m Cardiolite and subsequently stress SPECT Cardiolite nuclear imaging was obtained in the horizontal long, vertical long, and short axis views. A gated Cardiolite study at peak stress was obtained. Interpretation: Rest and stress SPECT Cardiolite nuclear imaging status post realignment, normalization, and attenuation correction demonstrate at rest the appearance of relative uniform tracer uptake. Status post stress there is notation of diminished myocardial perfusion/tracer uptake in the apical areas. There is diminished and systolic thickening and brightening. The gated Cardiolite study demonstrates diminished myocardial thickening and inward wall motion in the apical areas. The reported LVEF is 71 %. Impression: 1. Rest and stress SPECT Cardiolite nuclear imaging demonstrate post stress myocardial perfusion changes concerning for an area of stress-induced myocardial ischemia involving the apical areas. 2. The gated Cardiolite study reports an LVEF of 71 %. This note was generated with Quantopianation software. It may contain incorrect words, spelling, and punctuation that were not noted in checking the note before signing.
--- NOTE | 2018-11-27 11:28 | STRESSREP_ITS ---
Stress Test Report Date: 11-27-18 Procedure: Pharmacologic stress nuclear imaging study Indications: Non-ST segment elevation NV Consent: Per the patient Procedure: The patient underwent pharmacologic (Regadenoson) evaluation with a peak heart rate of 89 beats per minute (60 %predicted maximal heart rate) and a peak blood pressure of 130/68 mmHg. The baseline ECG demonstrated normal sinus rhythm; poor R wave progression; anterior NV of indeterminate age cannot be excluded. The peak pharmacologic ECG demonstrated no obvious ECG changes. There were no cardiac dysrhythmias pretest, during pharmacologic infusion, or recovery. There was no complaint of chest discomfort during pharmacologic infusion or recovery. The examination was discontinued secondary to completion of protocol. Impression: 1. Pharmacologic (Regadenoson) evaluation 2. Peak pharmacologic ECG with no obvious ECG changes. 3. There were no cardiac dysrhythmias pretest, during pharmacologic infusion, or recovery. 4. Nuclear images pending Myocardial perfusion imaging study: Technique: The patient was injected with 14.1 millicuries of technetium 99m Cardiolite and subsequently rest SPECT Cardiolite nuclear imaging was obtained in the horizontal long, vertical long, and short axis views. The patient underwent pharmacologic (Regadenoson) evaluation with a peak heart rate of 89 beats per minute (60 % percent predicted maximal heart rate) and a peak blood pressure of 130/68 mmHg. The patient was injected with 44.6 millicuries of technetium 99m Cardiolite and subsequently stress SPECT Cardiolite nuclear imaging was obtained in the horizontal long, vertical long, and short axis views. A gated Cardiolite study at peak stress was obtained. Interpretation: Rest and stress SPECT Cardiolite nuclear imaging status post realignment, normalization, and attenuation correction demonstrate at rest the appearance of relative uniform tracer uptake. Status post stress there is notation of diminished myocardial perfusion/tracer uptake in the apical areas. There is diminished and systolic thickening and brightening. The gated Cardiolite study demonstrates diminished myocardial thickening and inward wall motion in the apical areas. The reported LVEF is 71 %. Impression: 1. Rest and stress SPECT Cardiolite nuclear imaging demonstrate post stress myocardial perfusion changes concerning for an area of stress-induced myocardial ischemia involving the apical areas. 2. The gated Cardiolite study reports an LVEF of 71 %. This note was generated with S[employer] software. It may contain incorrect words, spelling, and punctuation that were not noted in checking the note before signing.
[2018-11-27] MEDS: Nystatin Powder 15gm Bottle 1 APPLIC TOPICAL ×2 (11:31→20:57)
[2018-11-27] MEDS: Furosemide 40 MG Tablet PO (11:32)
[2018-11-27] MEDS: Docusate Sodium 100 MG Capsule PO ×2 (11:32→20:56)
[2018-11-27] MEDS: Insulin Human 75/25 Kwickpen 20 UNIT SC ×2 (11:32→20:56)
[2018-11-27] MEDS: Citalopram 20 MG Tablet PO (11:33)
[2018-11-27] MEDS: Fenofibrate 48 MG Tablet PO (11:33)
[2018-11-27] MEDS: Insulin Lispro 100 UNIT/ML INSULN.PEN SQ ×2 (11:34→20:56)
[2018-11-27 12:01] LABS: Bedside Glucose 160 mg/dL (70-110)
--- NOTE | 2018-11-27 12:58 | PCM.CONS.GEN ---
Problem List (1) Open wound of sacroiliac region with complication Status: Acute (2) Pilonidal cyst with abscess Status: Chronic (3) Open wound of buttock Status: Acute Comment: bilateral perianal and gluteal areas (4) Hidradenitis suppurativa of anus Status: Chronic Comment: bilateral perianal and gluteal areas Reason for Consult Date of Consultation: 11/27/18 Reason for Consultation: In need of a diverting colostomy History of Present Illness: The patient is a 73 year old F who presented for an elective surgery for hidradenitis of the buttock and pilonidal abscess with Dr. Eaton on 11/22/18. Patient tolerated the procedure well. In PACU, patient became short of breath and lethargic. Patient was reintubated and transferred to the ICU. Patient was extubated on POD # 1. Patient also had elevated troponin. Cardiology was consulted and recommended a stress test as an outpatient. Patient denies previous cardiac history. 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 Patient notes she has a bowel movements every other day. She is currently taking a stool softener in the hospital. She has limitations due to a new right shoulder injury and is unable to keep the wound area clean after each bowel movement. She denies nausea, vomiting. She notes total hysterectomy previously otherwise no previous abdominal surgeries. Patient is a terrified to have anesthesia again. She is reluctant to proceed with the colostomy procedure. Patient notes she will be going to a rehab facility after discharge. Patient was scheduled for a stress test this morning, which returned abnormal. Past Medical History Past Medical History (Chronic Problems): Chronic Problems (Last Reviewed 11/27/18 @ 15:09 by Eula Tirado PA-C) Pilonidal cyst with abscess (Chronic) Former smoker (Chronic) Hx of hysterectomy (Chronic) Depression (Chronic) Hypertension (Chronic) Type 2 diabetes mellitus (Chronic) Hypothyroidism (Chronic) Hidradenitis suppurativa of anus (Chronic) bilateral perianal and gluteal areas Axillary hidradenitis suppurativa (Chronic) bilateral Hidradenitis suppurativa (Chronic) bilateral inguinal hidradenitis COPD (chronic obstructive pulmonary disease) (Chronic) Hx of carpal tunnel repair (Chronic) bilateral Hemorrhoids (Chronic) Rheumatoid arthritis (Chronic) Medical History: Medical History (Last Reviewed 11/27/18 @ 15:09 by Eula Tirado PA-C) Rheumatoid arthritis (Chronic) M06.9 Anemia D64.9 Asthma J45.909 Chronic pneumonia J18.9 Glaucoma H40.9 Osteoarthritis M19.90 COPD (chronic obstructive pulmonary disease) J44.9 Allergies adhesive tape Allergy (Unknown, Verified 11/22/18 08:41) Unknown azithromycin [From Zithromax] Allergy (Unknown, Verified 11/22/18 08:41) Unknown cephalexin [From Keflex] Allergy (Unknown, Verified 11/22/18 08:41) Unknown Home Medications: Ambulatory Orders Medication Instructions Recorded aspirin 325 mg tablet 325 mg PO DAILY 10/25/18 atorvastatin 80 mg tablet 80 mg PO DAILY 10/25/18 bimatoprost 0.01 % eye drops 1 drp OPHTHALMIC QPM 10/25/18 citalopram 20 mg tablet 20 mg PO DAILY 10/25/18 doxycycline hyclate 100 mg capsule 100 mg PO DAILY 10/25/18 fenofibrate nanocrystallized 145 145 mg PO DAILY 10/25/18 mg tablet furosemide 40 mg tablet 40 mg PO DAILY 10/25/18 insulin human U-100 NPH-regulr 80 unit SC BID ml 10/25/18 70-30 mix 100 unit/mL subcutaneous susp levalbuterol 0.63 mg/3 mL solution 0.63 mg INHALATION ONCE PRN 10/25/18 for nebulization levothyroxine 175 mcg capsule 175 mcg PO DAILY 10/25/18 losartan 50 mg tablet 50 mg PO DAILY 10/25/18 metformin 500 mg tablet 500 mg PO BID 10/25/18 polyethylene glycol 3350 17 gram 17 g PO DAILY PRN 10/25/18 oral powder packet potassium chloride 20 mEq oral 20 meq PO DAILY 10/25/18 packet pumpkin seed extract-soy germ 300 1 cap PO PRN PRN cap 10/25/18 mg capsule ropinirole 0.5 mg tablet 0.5 mg PO QHS 10/25/18 sulfamethoxazole 800 1 tab PO BID #60 tab 11/14/18 mg-trimethoprim 160 mg tablet Surgical History: Surgical History (Last Reviewed 11/27/18 @ 15:10 by Eula Tirado PA-C) Hx of hysterectomy (Chronic) Z90.710 Hx of carpal tunnel repair (Chronic) Z98.890 bilateral Surgical History: total hip arthroplasty Psychiatric History: No pertinent psych hx 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 Lives: Spouse/ Significant Other Smoking Status: Former smoker Tobacco Use: Non-smoker - *Family History Maternal Family History: Family History (Last Reviewed 11/27/18 @ 15:10 by Eula Tirado PA-C) Mother Lung cancer Anxiety Arthritis Depression (emotion) Diabetes Sister CVA (cerebral vascular accident) Anxiety Asthma Depression (emotion) Heart disease Aunt Arthritis Depression (emotion) Diabetes Daughter Cancer Grandmother Diabetes Grandfather Heart disease Psychiatric care CVA (cerebral vascular accident) Father COPD (chronic obstructive pulmonary disease) Review of Systems Constitutional: Reports: Fatigue HEENT: Denies: Head Aches, Sinus Congestion, Sinus Drainage Cardiovascular: Denies: Chest Pain, Palpitations Respiratory: Denies: Cough, Shortness of breath at rest, Sputum production Gastrointestinal: Denies: Abdominal Pain, Nausea, Vomiting Genitourinary: Denies: Dysuria Musculoskeletal: Denies: Joint Pain, Joint Tenderness Skin: Reports: Wounds - Large buttock wound. Denies: Rash Neurological: Reports: Balance problems. Denies: Focal weakness, Numbness, Tingling Psychiatric: Reports: Anxiety Hematologic/ Lymphatic: Reports: Anemia, Hx of blood transfusion. Denies: Easy Bruising, Easy Bleeding Patient Problems: Active and Suspected Problems (Last Reviewed 11/27/18 @ 15:09 by Eula Tirado PA-C) Elevated troponin (Acute) - Physical Exam General: Alert, Oriented x3, Cooperative HEENT: Atraumatic, PERRLA, EOMI, Normocephalic Neck: Supple, No JVD, Negative Carotid Bruits Lungs: Clear to auscultation, Normal air movement Cardiovascular: Regular rate, No murmurs Abdomen: Bowel Sounds Present, Soft, Non Tender Extremities: No edema, Capillary Refill Less than 3 Seconds Skin: Ulcer/ Wound - gluteal region Musculoskeletal: No Tenderness to Palpation of Joints or Extremities Neurological: Neuro grossly intact Psych/Mental Status: Anxious, - - Tearful Vital Signs Temp Pulse Resp BP Pulse Ox 97.8 F 70 18 106/43 L 89 11/27/18 11:29 11/27/18 11:56 11/27/18 11:29 11/27/18 11:29 11/27/18 11:29 Oxygen Flow Rate (L/min) 3 Oxygen Delivery Method Nasal Cannula Weight: 222 lb 0.088 oz Body Mass Index (BMI) 39.6 Intake and Output for Last 24 Hours 11/25/18 11/26/18 11/27/18 23:59 23:59 23:59 Intake Total 935 / 935 2089 / 2089 150 / 150 Output Total 1125 / 1125 1650 / 1650 500 / 500 Balance -190 / -190 439 / 439 -350 / -350 Microbiology Past 72 Hours 11/22/18 12:34 Gram Stain - Final Tissue - Other Wound Culture - Final Staphylococcus epidermidis Enterococcus gallinarum Anaerobic Culture - Final Anaerobic cocci Laboratory Tests Past 24 Hrs 11/27/18 11/27/18 11/27/18 04:26 04:26 04:26 WBC 7.1 RBC 3.30 L Hgb 8.5 L Hct 27.4 L MCV 83.0 MCH 25.8 L MCHC 31.0 L RDW 16.8 H RDW Differential 51.0 H Plt Count 261 MPV 9.3 PT 15.9 H INR 1.3 APTT 34.3 Sodium 138 Potassium 3.7 Chloride 102 Carbon Dioxide 32.0 Anion Gap 4 L BUN 19 H Creatinine 0.44 L Estim Creat Clear Calc 42.07 Est GFR (MDRD) Af Amer 183 Est GFR (MDRD) Non-Af 151 BUN/Creatinine Ratio 43.7 H Glucose 144 H Calcium 8.5 POC Glucose 11/27/18 11/27/18 11/26/18 11:21 06:34 20:59 POC Glucose 160 H 140 H 228 H 11/26/18 16:09 POC Glucose 194 H Assessment/Plan All Active Problems (Last Reviewed 11/27/18 @ 15:09 by Eula Tirado PA-C) Open wound of sacroiliac region with complication (Acute) Open wound of buttock (Acute) Elevated troponin (Acute) I have been consulted in conjunction with Dr. Serrato. Impression: Large gluteal wound s/p excision of bilateral hidradenitis and extensive pilonidal cystectomy. In need of diverting colostomy. Plan: Discussed patient with Dr. Serrato. Dr. Serrato will plan to perform a diverting colostomy when cleared from cardiology stand point. Patient will need to be bowel prepped with Miralax and dulcolax the day prior to surgery. Procedure details, risks and benefits have been discussed with the patient. Patient is declining the procedure at this time. She is fearful of undergoing general anesthesia. I have discussed with her that this is a temporary colostomy, however patient's daughter had worked with children with disabilities and noted multiple children had colostomies. Patient's daughter is against it. We will continue to be available for any further questions or concerns in regards to the procedure. We will continue to monitor this patient and proceed as appropriate. Patient was also discussed with Dr. Pruitt. Thank you for allowing us to participate in this patient's care. Code Visit Office Visits / Consults: [id number] IP Consult L3
[2018-11-27] MEDS: 0.9% NaCl Peripheral Flush Adult/Peds IV ×2 (13:47→22:50)
--- NOTE | 2018-11-27 15:19 | PN.CARD_ITS ---
Subjectve: Patient continues to remain asymptomatic from a cardiac standpoint. However she is being considered for a colostomy to allow for better wound healing at her gluteal operative site. Patient is still thinking about colostomy at this time. A stress test that was done to evaluate her reveals apical ischemia. Objective: Vital Signs Temp Pulse Resp BP Pulse Ox 97.8 F 80 18 109/50 L 90 11/27/18 14:05 11/27/18 14:05 11/27/18 14:05 11/27/18 14:05 11/27/18 14:05 Oxygen Flow Rate (L/min) 3 Oxygen Delivery Method Nasal Cannula Weight: 222 lb 0.088 oz Body Mass Index (BMI) 39.6 Intake and Output for Last 24 Hours 11/25/18 11/26/18 11/27/18 23:59 23:59 23:59 Intake Total 935 / 935 2089 / 2089 575 / 575 Output Total 1125 / 1125 1650 / 1650 1800 / 1800 Balance -190 / -190 439 / 439 -1225 / -1225 General: Awake, Oriented x 3 HEENT: Atraumatic Oral: Moist Mucosa Neck: Supple Lungs: Clear to auscultation Cardiovascular: Regular Rhythm, Normal S1, Normal S2 Abdomen: Soft Skin: No Rashes Psych/Mental Status: Appropriate Capacity - Capacity Assessment Tool Can the patient make a choice & communicate that choice?: Yes Can the patient understand benefits, risks and alternatives?: Yes Can the patient make a logical, rational choice?: Yes Is the choice the patient makes consistent w/ their values?: Yes 11/27/18 04:26: WBC 7.1, RBC 3.30 L, Hgb 8.5 L, Hct 27.4 L, MCV 83.0, MCH 25.8 L , MCHC 31.0 L, RDW 16.8 H, RDW Differential 51.0 H, Plt Count 261, MPV 9.3 11/27/18 04:26: Sodium 138, Potassium 3.7, Chloride 102, Carbon Dioxide 32.0, Anion Gap 4 L, BUN 19 H, Creatinine 0.44 L, Est GFR (MDRD) Af Amer 183, Est GFR (MDRD) Non-Af 151, BUN/Creatinine Ratio 43.7 H, Glucose 144 H, Calcium 8.5 11/27/18 04:26: PT 15.9 H, INR 1.3, APTT 34.3 Rhythm: EKG: ECHO: Stress Test: Cardiac Cath: PCI: CT Surgery: Holter monitor: EPS: PPM: CXR: Chest CT Scan: Medical Necessity - Tobacco Use Smoking Status: Former smoker Tobacco Use: Non-smoker Assessment/Plan 1. Preoperative cardiovascular examination: Patient has evidence of apical ischemia on the stress test. During the surgery for her gluteal abscess/hidradenitis she did become hypotensive and her troponin went up. While the patient remains asymptomatic from a cardiac standpoint, if she is going for another surgery that is not emergent then I think it will be reasonable to evaluate her coronaries with a coronary angiogram. Risks and benefits of this procedure was discussed with the patient in detail. It was also discussed with Dr. Pruitt. We will proceed with coronary angiography tomorrow. 2. Elevated troponin: We will proceed with coronary angiography for reasons described above.
--- NOTE | 2018-11-27 15:25 | CASEMGMT ---
Physician asked SW to please set up a family meeting. Patient is having a hard time right now as she is overwhelmed. She does not want some of the procedures that are very important to her health. OSWALDO called patient's and he was on his way to [facility]. SW let him know physician would like to meet with family regarding patient's care and make sure we are all on the same page. SW asked if it is okay to call their daughter to see if she could come in. He said that is fine. OSWALDO called patient's daughter Nancy. Meeting was scheduled for Mon11-28-18 at 11 a. OSWALDO asked patient's daughter if she had patient's son's information so SW could call him. She said she will text him and let him know, but she does not think he will be able to come as he works during the day. OSWALDO let physician know this information. Plan: When medically ready patient will go to TCU. Family meeting Mon11-28-18 at 11am to make sure everyone is on the same page with patient's care, including patient. Flor SILVERIO MSW
--- NOTE | 2018-11-27 15:46 | CASEMGMT ---
OSWALDO spoke with patient's and he is aware of meeting tomorrow at 11 am. Flor SILVERIO MSW
--- NOTE | 2018-11-27 16:04 | PCM.PN.ID ---
Patient Problems: Active and Suspected Problems (Last Reviewed 11/27/18 @ 15:09 by Eula Tirado PA-C) Elevated troponin (Acute) Subjective: Feeling ok, no fever, no n/v. - Physical Exam General: Cooperative, No apparent distress Lungs: Clear to auscultation, Normal air movement Cardiovascular: Regular rate, Regular Rhythm Abdomen: Soft, Non Tender, Non-Distended Skin: Ulcer/ Wound Vital Signs Temp Pulse Resp BP Pulse Ox 97.8 F 80 18 109/50 L 90 11/27/18 14:05 11/27/18 14:05 11/27/18 14:05 11/27/18 14:05 11/27/18 14:05 Oxygen Flow Rate (L/min) 3 Oxygen Delivery Method Nasal Cannula Weight: 100.7 kg Body Mass Index (BMI) 39.6 Intake and Output for Last 24 Hours 11/25/18 11/26/18 11/27/18 23:59 23:59 23:59 Intake Total 935 / 935 2089 / 2089 575 / 575 Output Total 1125 / 1125 1650 / 1650 1800 / 1800 Balance -190 / -190 439 / 439 -1225 / -1225 Microbiology Past 72 Hours 11/22/18 12:34 Gram Stain - Final Tissue - Other Wound Culture - Final Staphylococcus epidermidis Enterococcus gallinarum Anaerobic Culture - Final Anaerobic cocci Laboratory Tests Past 24 Hrs 11/27/18 11/27/18 11/27/18 04:26 04:26 04:26 WBC 7.1 RBC 3.30 L Hgb 8.5 L Hct 27.4 L MCV 83.0 MCH 25.8 L MCHC 31.0 L RDW 16.8 H RDW Differential 51.0 H Plt Count 261 MPV 9.3 PT 15.9 H INR 1.3 APTT 34.3 Sodium 138 Potassium 3.7 Chloride 102 Carbon Dioxide 32.0 Anion Gap 4 L BUN 19 H Creatinine 0.44 L Estim Creat Clear Calc 42.07 Est GFR (MDRD) Af Amer 183 Est GFR (MDRD) Non-Af 151 BUN/Creatinine Ratio 43.7 H Glucose 144 H Calcium 8.5 POC Glucose 11/27/18 11/27/18 11/26/18 11:21 06:34 20:59 POC Glucose 160 H 140 H 228 H 11/26/18 16:09 POC Glucose 194 H Medical Necessity - Tobacco Use Smoking Status: Former smoker Tobacco Use: Non-smoker Route of nutrition/ use of supplements: [] Nutritional Intake: [] IV Site: [] Wong Catheter: [] - Assessment/Plan Antibiotics: [] Assessment/Plan: [] Active and Suspected Problems (Last Updated 11/23/18 @ 09:47 by Trae García MD) Elevated troponin (Acute) Hidradenitis suppurativa with extensive sacral pilonidal abscess, now s/p I&D by Dr. Eaton 11/22/18. Surg cx with MSSE, Enterococcus galinarium, and anaerobes. No fever, normal wbc. Given elisha-anal involvement, undergoing gen surg eval for diverting ostomy in order to help this heal. Cont unasyn. Will follow
[2018-11-27 16:31] LABS: Bedside Glucose 142 mg/dL (70-110)
[2018-11-27] MEDS: Atorvastatin Calcium 80 MG Tablet PO (20:56)
[2018-11-27] MEDS: Pramipexole Di-HCl 0.25 MG Tablet PO (20:56)
[2018-11-27] MEDS: Latanoprost 0.005% 1 Bottle 1 DRP OPHTHALMIC (20:57)
[2018-11-27 22:20] LABS: Bedside Glucose 228 mg/dL (70-110)
--- NOTE | 2018-11-27 22:24 | PCM.PN.SRG ---
Patient Problems: Active and Suspected Problems (Last Reviewed 11/27/18 @ 15:09 by Eula Tirado PA-C) Elevated troponin (Acute) Subjective: Postop #5 Patient is resting comfortably. - Physical Exam General: Alert, Oriented x3 HEENT: PERRLA, EOMI Oral: Moist Mucosa Neck: Supple Abdomen: Soft, Non-Distended Skin: Ulcer/ Wound - bilateral perianal wound and sacral wound is stable. No active bleeding seen. Redressed with Aquacel Silver and moistened kerlix gauze. Will switch to saline gauze dressings after bowel movements. Neurological: Cranial nerves II-XII grossly intact Psych/Mental Status: Normal Affect, Appropriate Vital Signs Temp Pulse Resp BP Pulse Ox 98.2 F 74 16 118/57 L 93 11/27/18 21:05 11/27/18 21:05 11/27/18 21:05 11/27/18 21:05 11/27/18 21:05 Oxygen Flow Rate (L/min) 2 Oxygen Delivery Method Room Air Weight: 222 lb 0.088 oz Body Mass Index (BMI) 39.6 Intake and Output for Last 24 Hours 11/25/18 11/26/18 11/27/18 23:59 23:59 23:59 Intake Total 935 / 935 2089 / 2089 1166 / 1166 Output Total 1125 / 1125 1650 / 1650 2600 / 2600 Balance -190 / -190 439 / 439 -1434 / -1434 Microbiology Past 72 Hours 11/22/18 12:34 Gram Stain - Final Tissue - Other Wound Culture - Final Staphylococcus epidermidis Enterococcus gallinarum Anaerobic Culture - Final Anaerobic cocci Laboratory Tests Past 24 Hrs 11/27/18 11/27/18 11/27/18 04:26 04:26 04:26 WBC 7.1 RBC 3.30 L Hgb 8.5 L Hct 27.4 L MCV 83.0 MCH 25.8 L MCHC 31.0 L RDW 16.8 H RDW Differential 51.0 H Plt Count 261 MPV 9.3 PT 15.9 H INR 1.3 APTT 34.3 Sodium 138 Potassium 3.7 Chloride 102 Carbon Dioxide 32.0 Anion Gap 4 L BUN 19 H Creatinine 0.44 L Estim Creat Clear Calc 42.07 Est GFR (MDRD) Af Amer 183 Est GFR (MDRD) Non-Af 151 BUN/Creatinine Ratio 43.7 H Glucose 144 H Calcium 8.5 POC Glucose 11/27/18 11/27/18 11/27/18 20:53 16:11 11:21 POC Glucose 228 H 142 H 160 H 11/27/18 06:34 POC Glucose 140 H Medical Necessity - Tobacco Use Smoking Status: Former smoker Tobacco Use: Non-smoker Assessment/Plan All Active Problems (Last Reviewed 11/27/18 @ 15:09 by Eula Tirado PA-C) Open wound of sacroiliac region with complication (Acute) Open wound of buttock (Acute) Elevated troponin (Acute) 1. Hidradenitis bilateral perianal areas. 2. Extensive, complicated pilonidal cyst abscess. 3. Former smoker. 4. s/p surgical preparation bilateral perianal areas with excision hidradenitis (162.5 cm2) and excision extensive, complicated pilonidal cyst abscess (75 cm2). 5. Anemia of chronic disease, acute on chronic. Wound was re-dressed with Aquacel Silver today. Operative culture showed Staphylococcus epidermidis and Enterococcus gallinarum and Anaerobic cocci. Continue the Unasyn. Infectious Diseases involved with antibiotic management. Prealbumin was 13.7. Encourage nutritional supplementation with protein to help the healing process. Hgb is stable at 8.5, down from 8.6. Had PRBC a few days ago. She has anemia of chronic disease, acute on chronic. Had 250 ml of operative blood loss. Also some IV dilution. Continue iron supplementation. Reiterated to the patient the importance of taking a shower after each bowel movement to minimize stool contamination. If stool contamination becomes an issue, then she would need a diverting colostomy. She voices understanding. It has been reported that when she had a bowel movement today, the irrigation was painful and with her shoulder injury. It will be difficult to maintain a clean wound consistently. She is at increased risk for stool contamination. So instead of waiting until she gets a bad infection that may be life threatening, I discussed a temporary diverting colostomy with the patient. She is agreeable. She has concerns about the anesthetic because of what happened last time that required re-intubation and transfer to the ICU. She is getting a stress test today preop. Recommend she go to an ECF at discharge. ECF evaluation in process.
[2018-11-27] MEDS: DiphenhydrAMINE 25 MG Capsule 50 MG PO (22:47)
[2018-11-28] VITALS (27 sets, daily range): BP systolic 113–149; BP diastolic 43–72; PULSE 64–89; RESP 16–19; TEMP 36.7–37.2; O2SAT 89–97
--- NOTE | 2018-11-28 04:41 | EKG12_ITS ---
Test Reason : AM EKG Blood Pressure : / mmHG Vent. Rate : 072 BPM Atrial Rate : 072 BPM P-R Int : 174 ms QRS Dur : 106 ms QT Int : 390 ms P-R-T Axes : -10 -04 094 degrees QTc Int : 427 ms Normal sinus rhythm Incomplete left bundle branch block Nonspecific T wave abnormality Abnormal ECG Confirmed by MARILYN PITTMAN, BRYANT ([id number]), scientific publications editor TOM RAMSEY ([id number]) on 12/03/2018 3:36:01 PM Referred By: Dustin Eaton Confirmed By:BRYANT SANDERS MD
[2018-11-28 05:37] LABS: Bacteria 0 SEEN /hpf (None Seen); Mucous, Urine 0 SEEN /hpf (<or=2+); Red Blood Cells-Urine 0 SEEN /hpf (0-5); Squamous Epithelial Cells - UA 0 SEEN /hpf (5-10)
[2018-11-28 05:39] LABS: Glucose, Dipstick Normal (Normal); Ketone-Dipstick Negative (Negative); Leukocyte Esterase-Dipstick 25 /ul (Negative); Nitrite-Dipstick Negative (Negative); Occult Blood-Urine Negative /ul (Negative); Protein-Dipstick Negative (Negative); Urine Bilirubin Dipstick Negative (Negative); Urine Urobilinogen Normal (Normal); Urine pH 6.5 (5.0 - 8.0)
[2018-11-28 05:46] LABS: Color, Urine Yellow (Yellow); Urine Clarity Sl Cldy (Clear)
[2018-11-28 05:47] LABS: White Blood Cells 0-5 SEEN /hpf (0-5)
--- NOTE | 2018-11-28 05:55 | EKG12_ITS ---
Test Reason : Blood Pressure : / mmHG Vent. Rate : 103 BPM Atrial Rate : 103 BPM P-R Int : 202 ms QRS Dur : 102 ms QT Int : 362 ms P-R-T Axes : 036 -30 085 degrees QTc Int : 474 ms Sinus tachycardia Left axis deviation Inferior infarct , age undetermined Anteroseptal infarct , age undetermined Abnormal ECG Confirmed by MARILYN PITTMAN, BRYANT ([id number]), deputy editor in chief MARYANNE TIJERINA ([id number]) on 11/28/2018 1:40:10 PM Referred By: Dustin Eaton Confirmed By:BRYANT SANDERS MD
[2018-11-28] MEDS: Aspirin 81 MG TAB.CHEW PO (06:04)
[2018-11-28] MEDS: Losartan Potassium 25 MG Tablet PO (06:04)
[2018-11-28] MEDS: Levothyroxine 175 MCG Tablet PO (06:04)
[2018-11-28 06:11] LABS: International Normalized Ratio 1.3; Prothrombin Time (Protime)PT. 15.9 SECONDS (11.7-14.9)
[2018-11-28 06:12] LABS: Partial Thromboplast Time 35.1 Seconds (24.1-36.2)
[2018-11-28 06:14] LABS: Absolute Lymphocyte Count 1.19 X10^3/ul (0.83-4.51); Absolute Neutrophil Count 4.8 X10^3/uL (2.0-7.7); Basophil# 0.01 X10^3/uL; Basophil% 0.1 % (0-1); Eosinophil# 0.38 X10^3/uL; Eosinophils% 5.5 % (0-5); Hematocrit 26.6 % (37-47); Hemoglobin 8.2 g/dl (12.0-15.0); Lymphocyte # 1.19 X10^3/ul (4.0); Lymphocyte % 17.3 % (19-41); Mean Corp Hgb Conc 30.8 g/gl (32-36); Mean Corpuscular Hgb 25.8 pg (27.0-32.0); Mean Corpuscular Volume 83.6 fL (81-99); Mean Platelet Vol. 9.5 fl (6.2-12.0); Monocyte# 0.51 X10^3/uL; Monocyte% 7.4 % (0-10); Neutrophil # 4.77 X10^3/uL (2.7-7.7); Neutrophil % 69.6 % (47-70); Platelet Count 273 K/mm3 (150-450); RBC Distribution Width CV 16.8 % (11.6-14.6); RBC Distribution Width SD 51.5 fl (35.1-43.9); Red Blood Count 3.18 M/mm3 (4.2-5.4); White Blood Count 6.9 K/mm3 (4.4-11.0)
[2018-11-28 06:24] LABS: Anion Gap 5 (5-15); BUN 12 mg/dL (7-18); BUN/Creat Ratio 33.1 RATIO (10-20); Calcium,Total 8.5 mg/dL (8.5-10.1); Chloride 100 mmol/L (98-107); Creatinine, Serum 0.36 mg/dL (0.55-1.02); EST Glomerular Filtration Rate 187 mL/min (>60); Est Glom Filt Rate - Afr Amer 226 mL/min (>60); Estimated Creatinine Clearance 42.07 ml/min; Glucose 143 mg/dL (74-106); Potassium 3.3 mmol/L (3.5-5.1); Sodium Level 138 mmol/L (136-145)
[2018-11-28 06:26] LABS: POSITIVE COUNT NO; POSITIVE DIFFERENTIAL NO; POSITIVE MORPHOLOGY NO
[2018-11-28] MEDS: Ipratropium/Albuterol Sulfate 3 ML AMPUL.NEB INHALATION ×2 (06:53→21:16)
[2018-11-28] MEDS: Budesonide Respules 0.5 MG/2 ML AMPUL.NEB. INHALATION ×2 (06:53→21:17)
[2018-11-28 07:01] LABS: Bedside Glucose 156 mg/dL (70-110)
--- NOTE | 2018-11-28 08:11 | PCM.PROGNOTE ---
Patient Problems: Active and Suspected Problems (Last Reviewed 11/27/18 @ 15:09 by Eula Tirado PA-C) Elevated troponin (Acute) Subjective: All events of the past 24 hours of been reviewed Patient is scheduled for cardiac cath at 845 this a.m. She is afebrile and vital signs are stable. She is 95-97% saturated on a 2 L nasal cannula. She is sleepy this morning because she had Benadryl for some itching Due to adhesive tape which she is allergic to. All lab was personally reviewed. White blood cell count is normal at 6.9 with 70% neutrophils. Hemoglobin is 8.2 (8.4 at admission) and platelets are normal. Stool for Hemoccult has still not been collected despite bowel movements. Denies chest pain, shortness of breath, cough, nausea, abdominal pain. Objective: PHYSICAL EXAM: GENERAL: alert, oriented X 3, Cooperative, NAD, less anxious and agitated than yesterday afternoon ORAL: moist mucosa, no mucosal lesions NECK: No JVD, supple, trachea midline LUNGS: Coarse crackles in the bases only likely secondary to atelectasis, symmetric chest expansion, not tachypneic, no conversational dyspnea HEART: RRR, Normal S1 and S2, no rub, no gallop TELEMETRY: Normal sinus rhythm with no significant ectopy ABDOMEN: soft, NT, ND, BS present, no guarding with palpation, obese EXTREMITIES: no edema, no cyanosis, no calf tenderness SKIN: No rashes, no breakdown NEUROLOGIC: no focal neurologic deficits PSYCH: appropriate, normal affect, pleasant - Physical Exam Vital Signs Temp Pulse Resp BP Pulse Ox 98.7 F 64 18 137/53 H 95 11/28/18 06:02 11/28/18 07:14 11/28/18 06:53 11/28/18 06:02 11/28/18 06:53 Oxygen Flow Rate (L/min) 2 Oxygen Delivery Method Nasal Cannula Weight: 218 lb 0.595 oz Body Mass Index (BMI) 39.6 Intake and Output for Last 24 Hours 11/26/18 11/27/18 11/28/18 23:59 23:59 23:59 Intake Total 2089 / 2089 1166 / 1166 1029 / 1029 Output Total 1650 / 1650 2600 / 2600 1060 / 1060 Balance 439 / 439 -1434 / -1434 - Microbiology Past 72 Hours 11/22/18 12:34 Gram Stain - Final Tissue - Other Wound Culture - Final Staphylococcus epidermidis Enterococcus gallinarum Anaerobic Culture - Final Anaerobic cocci Laboratory Tests Past 24 Hrs 11/28/18 11/28/18 11/28/18 05:15 05:26 05:26 WBC 6.9 RBC 3.18 L Hgb 8.2 L Hct 26.6 L MCV 83.6 MCH 25.8 L MCHC 30.8 L RDW 16.8 H RDW Differential 51.5 H Plt Count 273 MPV 9.5 Immature Gran % (Auto) 0.100 Neut % (Auto) 69.6 Lymph % (Auto) 17.3 L [place] % (Auto) 7.4 Eos % (Auto) 5.5 H Baso % (Auto) 0.1 Absolute Neuts (auto) 4.8 Absolute Lymphs (auto) 1.19 Total Counted Not Reportable PT 15.9 H INR 1.3 APTT 35.1 Sodium Potassium Chloride Carbon Dioxide Anion Gap BUN Creatinine Estim Creat Clear Calc Est GFR (MDRD) Af Amer Est GFR (MDRD) Non-Af BUN/Creatinine Ratio Glucose Calcium Urine Color Yellow Urine Clarity Sl Cldy Urine pH 6.5 Ur Specific [place] 1.010 Urine Protein Negative Urine Glucose (UA) Normal Urine Ketones Negative Urine Occult Blood Negative Urine Nitrite Negative Urine Bilirubin Negative Urine Urobilinogen Normal Ur Leukocyte Esterase 25 H Urine RBC 0 SEEN Urine WBC 0-5 SEEN Ur Squamous Epith Cells 0 SEEN Urine Bacteria 0 SEEN Urine Mucus 0 SEEN 11/28/18 05:26 WBC RBC Hgb Hct MCV MCH MCHC RDW RDW Differential Plt Count MPV Immature Gran % (Auto) Neut % (Auto) Lymph % (Auto) [place] % (Auto) Eos % (Auto) Baso % (Auto) Absolute Neuts (auto) Absolute Lymphs (auto) Total Counted PT INR APTT Sodium 138 Potassium 3.3 L Chloride 100 Carbon Dioxide 33.0 H Anion Gap 5 BUN 12 Creatinine 0.36 L Estim Creat Clear Calc 42.07 Est GFR (MDRD) Af Amer 226 Est GFR (MDRD) Non-Af 187 BUN/Creatinine Ratio 33.1 H Glucose 143 H Calcium 8.5 Urine Color Urine Clarity Urine pH Ur Specific [place] Urine Protein Urine Glucose (UA) Urine Ketones Urine Occult Blood Urine Nitrite Urine Bilirubin Urine Urobilinogen Ur Leukocyte Esterase Urine RBC Urine WBC Ur Squamous Epith Cells Urine Bacteria Urine Mucus POC Glucose 11/28/18 11/27/18 11/27/18 06:40 20:53 16:11 POC Glucose 156 H 228 H 142 H 11/27/18 11:21 POC Glucose 160 H Medical Necessity - Tobacco Use Smoking Status: Former smoker Tobacco Use: Non-smoker Assessment/Plan All Active Problems (Last Reviewed 11/27/18 @ 15:09 by Eula Tirado PA-C) Open wound of sacroiliac region with complication (Acute) Open wound of buttock (Acute) Elevated troponin (Acute) Impressions 1. Hidradenitis of the perianal area status post I&D with excisional debridement by Dr. Eaton 2. NSTEMI-type II secondary to demand ischemia related to hypotension and acute hypercapnic respiratory failure 3. Acute hypercapnic respiratory failure 4. COPD 5. Type 2 diabetes mellitus 6. Hypertension 7. Hypothyroidism 8. Chronic respiratory failure with hypoxemia 9. Abnormal nuclear stress test 10. hypokalemia 11. Atelectasis For cardiac catheterization today with Dr. Garcias Family meeting planned for 11:00 today Supplement potassium prior to cardiac cath - 20 mEq KCl Reinforced need to use incentive spirometer for 10 breaths every hour while she is awake to prevent pneumonia Further discussion regarding diverting colostomy following cardiac catheterization Reminded nursing to obtain a stool for Hemoccult - If this is not obtained today will do a rectal at the time the dressing is changed Blood sugars are adequately controlled. Code Visit Inpatient E&M: 76989 Subs Hosp L2
[2018-11-28] MEDS: 0.9% Normal Saline 1,000 ML 15 ML IV (08:33)
--- NOTE | 2018-11-28 09:17 | NURSING ---
Report called to receiving MARK Balderas in microbiological lab technician. Pearl FLORES
[2018-11-28] MEDS: Glucerna Shake 120 ML LIQUID PO (10:34)
[2018-11-28] MEDS: Furosemide 40 MG Tablet PO (10:40)
[2018-11-28] MEDS: Citalopram 20 MG Tablet PO (10:40)
[2018-11-28] MEDS: Iron Polysaccharide Complex 150 MG CAPSULE PO (10:40)
[2018-11-28] MEDS: Nystatin Powder 15gm Bottle 1 APPLIC TOPICAL ×2 (10:41→21:08)
[2018-11-28] MEDS: Fenofibrate 48 MG Tablet PO (10:41)
[2018-11-28] MEDS: Insulin Human 75/25 Kwickpen 20 UNIT SC ×2 (10:51→21:08)
[2018-11-28] MEDS: Insulin Lispro 100 UNIT/ML INSULN.PEN SQ ×3 (10:52→21:07)
[2018-11-28 11:05] LABS: Bedside Glucose 157 mg/dL (70-110)
--- NOTE | 2018-11-28 11:33 | CASEMGMT ---
SW and physician met with family to discuss plan of care. Physician explained what procedure is being recommended. Family is in agreement and had no questions. They were going to talk with patient first and then physician will go in later. SW let family know TCU will have a bed for patient when she is ready. Plan: TCU when medically ready. Flor SILVERIO MSW
--- NOTE | 2018-11-28 11:45 | PCM.PN.CARD ---
Subjectve: Pt. continues to do well from a cardiac standpoint without any anginal symptoms. Objective: Vital Signs Temp Pulse Resp BP Pulse Ox 98.6 F 82 19 H 129/55 H 90 11/28/18 11:25 11/28/18 11:25 11/28/18 11:25 11/28/18 11:25 11/28/18 11:25 Oxygen Flow Rate (L/min) 3 Oxygen Delivery Method Nasal Cannula Weight: 218 lb 0.595 oz Body Mass Index (BMI) 39.6 Intake and Output for Last 24 Hours 11/26/18 11/27/18 11/28/18 23:59 23:59 23:59 Intake Total 2089 / 2089 1166 / 1166 1029 / 1029 Output Total 1650 / 1650 2600 / 2600 1060 / 1060 Balance 439 / 439 -1434 / -1434 - / General: Awake, Alert, Oriented x 3 HEENT: Atraumatic Oral: Moist Mucosa Lungs: Clear to auscultation Cardiovascular: Regular Rhythm, Normal S1, Normal S2 Abdomen: Soft Skin: No Rashes 11/28/18 05:15: Urine Color Yellow, Urine Clarity Sl Cldy, Urine pH 6.5, Ur Specific [place] 1.010, Urine Protein Negative, Urine Glucose (UA) Normal, Urine Ketones Negative, Urine Occult Blood Negative, Urine Nitrite Negative, Urine Bilirubin Negative, Urine Urobilinogen Normal, Ur Leukocyte Esterase 25 H, Urine RBC 0 SEEN, Urine WBC 0-5 SEEN 11/28/18 05:26: WBC 6.9, RBC 3.18 L, Hgb 8.2 L, Hct 26.6 L, MCV 83.6, MCH 25.8 L, MCHC 30.8 L, RDW 16.8 H, RDW Differential 51.5 H, Plt Count 273, MPV 9.5, Immature Gran % (Auto) 0.100, Neut % (Auto) 69.6, Lymph % (Auto) 17.3 L, [place] % (Auto) 7.4, Eos % (Auto) 5.5 H, Baso % (Auto) 0.1, Absolute Neuts (auto) 4.8, Total Counted Not Reportable 11/28/18 05:26: PT 15.9 H, INR 1.3, APTT 35.1 11/28/18 05:26: Sodium 138, Potassium 3.3 L, Chloride 100, Carbon Dioxide 33.0 H, Anion Gap 5, BUN 12, Creatinine 0.36 L, Est GFR (MDRD) Af Amer 226, Est GFR (MDRD) Non-Af 187, BUN/Creatinine Ratio 33.1 H, Glucose 143 H, Calcium 8.5 Rhythm: EKG: ECHO: Stress Test: Cardiac Cath: PCI: CT Surgery: Holter monitor: EPS: PPM: CXR: Chest CT Scan: Medical Necessity - Tobacco Use Smoking Status: Former smoker Tobacco Use: Non-smoker Assessment/Plan CAD: Pt. has 70% stenosis in LAD and 100% occlusion of the RCA with collaterals. No revascularization is recommended at this time. It is reasonable to treat this medically in view of patient being considered for surgery, pt. being post op with bleeding from wound, lack of symptoms from CAD etc. Pt. will be considered low to intermediate risk of elisha op cardiac complications from surgery for colostomy. From our standpoint it is reasonable to proceed.
--- NOTE | 2018-11-28 11:49 | PN.CARD_ITS ---
Subjectve: Pt. continues to do well from a cardiac standpoint without any anginal symptoms. Objective: Vital Signs Temp Pulse Resp BP Pulse Ox 98.6 F 82 19 H 129/55 H 90 11/28/18 11:25 11/28/18 11:25 11/28/18 11:25 11/28/18 11:25 11/28/18 11:25 Oxygen Flow Rate (L/min) 3 Oxygen Delivery Method Nasal Cannula Weight: 218 lb 0.595 oz Body Mass Index (BMI) 39.6 Intake and Output for Last 24 Hours 11/26/18 11/27/18 11/28/18 23:59 23:59 23:59 Intake Total 2089 / 2089 1166 / 1166 1029 / 1029 Output Total 1650 / 1650 2600 / 2600 1060 / 1060 Balance 439 / 439 -1434 / -1434 - / General: Awake, Alert, Oriented x 3 HEENT: Atraumatic Oral: Moist Mucosa Lungs: Clear to auscultation Cardiovascular: Regular Rhythm, Normal S1, Normal S2 Abdomen: Soft Skin: No Rashes 11/28/18 05:15: Urine Color Yellow, Urine Clarity Sl Cldy, Urine pH 6.5, Ur Specific [place] 1.010, Urine Protein Negative, Urine Glucose (UA) Normal, Urine Ketones Negative, Urine Occult Blood Negative, Urine Nitrite Negative, Urine Bilirubin Negative, Urine Urobilinogen Normal, Ur Leukocyte Esterase 25 H, Urine RBC 0 SEEN, Urine WBC 0-5 SEEN 11/28/18 05:26: WBC 6.9, RBC 3.18 L, Hgb 8.2 L, Hct 26.6 L, MCV 83.6, MCH 25.8 L , MCHC 30.8 L, RDW 16.8 H, RDW Differential 51.5 H, Plt Count 273, MPV 9.5, Immature Gran % (Auto) 0.100, Neut % (Auto) 69.6, Lymph % (Auto) 17.3 L, [place] % (Auto) 7.4, Eos % (Auto) 5.5 H, Baso % (Auto) 0.1, Absolute Neuts (auto) 4.8, Total Counted Not Reportable 11/28/18 05:26: PT 15.9 H, INR 1.3, APTT 35.1 11/28/18 05:26: Sodium 138, Potassium 3.3 L, Chloride 100, Carbon Dioxide 33.0 H , Anion Gap 5, BUN 12, Creatinine 0.36 L, Est GFR (MDRD) Af Amer 226, Est GFR (MDRD) Non-Af 187, BUN/Creatinine Ratio 33.1 H, Glucose 143 H, Calcium 8.5 Rhythm: EKG: ECHO: Stress Test: Cardiac Cath: PCI: CT Surgery: Holter monitor: EPS: PPM: CXR: Chest CT Scan: Medical Necessity - Tobacco Use Smoking Status: Former smoker Tobacco Use: Non-smoker Assessment/Plan CAD: Pt. has 70% stenosis in LAD and 100% occlusion of the RCA with collaterals. No revascularization is recommended at this time. It is reasonable to treat this medically in view of patient being considered for surgery, pt. being post op with bleeding from wound, lack of symptoms from CAD etc. Pt. will be considered low to intermediate risk of elisha op cardiac complications from surgery for colostomy. From our standpoint it is reasonable to proceed.
[2018-11-28] MEDS: DiphenhydrAMINE 25 MG Capsule 50 MG PO (14:37)
[2018-11-28 16:41] LABS: Bedside Glucose 219 mg/dL (70-110)
--- NOTE | 2018-11-28 16:59 | PCM.PN.SRG ---
Patient Problems: Active and Suspected Problems (Last Reviewed 11/27/18 @ 15:09 by Eula Tirado PA-C) Elevated troponin (Acute) Subjective: Postop #6 Patient is resting comfortably. - Physical Exam General: Alert, Oriented x3 HEENT: PERRLA, EOMI Oral: Moist Mucosa Neck: Supple Abdomen: Soft, Non-Distended Skin: Ulcer/ Wound - bilateral perianal wound and sacral wound is stable. No active bleeding seen. Redressed with Aquacel Silver and moistened kerlix gauze. Will switch to saline gauze dressings after bowel movements. Neurological: Cranial nerves II-XII grossly intact Psych/Mental Status: Normal Affect, Appropriate Vital Signs Temp Pulse Resp BP Pulse Ox 98.9 F 89 19 H 113/54 L 92 11/28/18 14:44 11/28/18 16:03 11/28/18 14:44 11/28/18 14:44 11/28/18 14:44 Oxygen Flow Rate (L/min) 3 Oxygen Delivery Method Nasal Cannula Weight: 218 lb 0.595 oz Body Mass Index (BMI) 39.6 Intake and Output for Last 24 Hours 11/26/18 11/27/18 11/28/18 23:59 23:59 23:59 Intake Total 2089 / 2089 1166 / 1166 1629 / 1629 Output Total 1650 / 1650 2600 / 2600 1485 / 1485 Balance 439 / 439 -1434 / -1434 144 / 144 Microbiology Past 72 Hours 11/22/18 12:34 Gram Stain - Final Tissue - Other Wound Culture - Final Staphylococcus epidermidis Enterococcus gallinarum Anaerobic Culture - Final Anaerobic cocci Laboratory Tests Past 24 Hrs 11/28/18 11/28/18 11/28/18 05:15 05:26 05:26 WBC 6.9 RBC 3.18 L Hgb 8.2 L Hct 26.6 L MCV 83.6 MCH 25.8 L MCHC 30.8 L RDW 16.8 H RDW Differential 51.5 H Plt Count 273 MPV 9.5 Immature Gran % (Auto) 0.100 Neut % (Auto) 69.6 Lymph % (Auto) 17.3 L [place] % (Auto) 7.4 Eos % (Auto) 5.5 H Baso % (Auto) 0.1 Absolute Neuts (auto) 4.8 Absolute Lymphs (auto) 1.19 Total Counted Not Reportable PT 15.9 H INR 1.3 APTT 35.1 Sodium Potassium Chloride Carbon Dioxide Anion Gap BUN Creatinine Estim Creat Clear Calc Est GFR (MDRD) Af Amer Est GFR (MDRD) Non-Af BUN/Creatinine Ratio Glucose Calcium Urine Color Yellow Urine Clarity Sl Cldy Urine pH 6.5 Ur Specific [place] 1.010 Urine Protein Negative Urine Glucose (UA) Normal Urine Ketones Negative Urine Occult Blood Negative Urine Nitrite Negative Urine Bilirubin Negative Urine Urobilinogen Normal Ur Leukocyte Esterase 25 H Urine RBC 0 SEEN Urine WBC 0-5 SEEN Ur Squamous Epith Cells 0 SEEN Urine Bacteria 0 SEEN Urine Mucus 0 SEEN 11/28/18 05:26 WBC RBC Hgb Hct MCV MCH MCHC RDW RDW Differential Plt Count MPV Immature Gran % (Auto) Neut % (Auto) Lymph % (Auto) [place] % (Auto) Eos % (Auto) Baso % (Auto) Absolute Neuts (auto) Absolute Lymphs (auto) Total Counted PT INR APTT Sodium 138 Potassium 3.3 L Chloride 100 Carbon Dioxide 33.0 H Anion Gap 5 BUN 12 Creatinine 0.36 L Estim Creat Clear Calc 42.07 Est GFR (MDRD) Af Amer 226 Est GFR (MDRD) Non-Af 187 BUN/Creatinine Ratio 33.1 H Glucose 143 H Calcium 8.5 Urine Color Urine Clarity Urine pH Ur Specific [place] Urine Protein Urine Glucose (UA) Urine Ketones Urine Occult Blood Urine Nitrite Urine Bilirubin Urine Urobilinogen Ur Leukocyte Esterase Urine RBC Urine WBC Ur Squamous Epith Cells Urine Bacteria Urine Mucus POC Glucose 11/28/18 11/28/18 11/28/18 16:34 10:47 06:40 POC Glucose 219 H 157 H 156 H 11/27/18 20:53 POC Glucose 228 H Medical Necessity - Tobacco Use Smoking Status: Former smoker Tobacco Use: Non-smoker Assessment/Plan All Active Problems (Last Reviewed 11/27/18 @ 15:09 by Eula Tirado PA-C) Open wound of sacroiliac region with complication (Acute) Open wound of buttock (Acute) Elevated troponin (Acute) 1. Hidradenitis bilateral perianal areas. 2. Extensive, complicated pilonidal cyst abscess. 3. Former smoker. 4. s/p surgical preparation bilateral perianal areas with excision hidradenitis (162.5 cm2) and excision extensive, complicated pilonidal cyst abscess (75 cm2). 5. Anemia of chronic disease, acute on chronic. Wound was re-dressed with Aquacel Silver today. Operative culture showed Staphylococcus epidermidis and Enterococcus gallinarum and Anaerobic cocci. Continue the Unasyn. Infectious Diseases involved with antibiotic management. Prealbumin was 13.7. Encourage nutritional supplementation with protein to help the healing process. Hgb decreased slightly to 8.2, down from 8.5. Had PRBC a few days ago. She has anemia of chronic disease, acute on chronic. Had 250 ml of operative blood loss. Also some IV dilution. Continue iron supplementation. Reiterated to the patient the importance of taking a shower after each bowel movement to minimize stool contamination. If stool contamination becomes an issue, then she would need a diverting colostomy. She voices understanding. It has been reported that when she had a bowel movement today, the irrigation was painful and with her shoulder injury. It will be difficult to maintain a clean wound consistently. She is at increased risk for stool contamination. So instead of waiting until she gets a bad infection that may be life threatening, I discussed a temporary diverting colostomy with the patient. She is agreeable. She has concerns about the anesthetic because of what happened last time that required re-intubation and transfer to the ICU. She had her stress test and angiogram. She has some blockages that can be treated with medication at this time. Ok to proceed with colostomy. It is scheduled for Monday. Recommend she go to an ECF at discharge. ECF evaluation in process.
--- NOTE | 2018-11-28 18:04 | PCM.PN.ID ---
Patient Problems: Active and Suspected Problems (Last Reviewed 11/27/18 @ 15:09 by Eula Tirado PA-C) Elevated troponin (Acute) Subjective: Ostomy for Monday, feeling better, no fever - Physical Exam General: Alert, Cooperative, No apparent distress Lungs: Clear to auscultation, Normal air movement Cardiovascular: Regular rate, Regular Rhythm Abdomen: Soft, Non Tender, Non-Distended Skin: Ulcer/ Wound Vital Signs Temp Pulse Resp BP Pulse Ox 98.9 F 89 19 H 113/54 L 92 11/28/18 14:44 11/28/18 16:03 11/28/18 14:44 11/28/18 14:44 11/28/18 14:44 Oxygen Flow Rate (L/min) 3 Oxygen Delivery Method Nasal Cannula Weight: 98.9 kg Body Mass Index (BMI) 39.6 Intake and Output for Last 24 Hours 11/26/18 11/27/18 11/28/18 23:59 23:59 23:59 Intake Total 2089 / 2089 1166 / 1166 1629 / 1629 Output Total 1650 / 1650 2600 / 2600 1485 / 1485 Balance 439 / 439 -1434 / -1434 144 / 144 Microbiology Past 72 Hours 11/22/18 12:34 Gram Stain - Final Tissue - Other Wound Culture - Final Staphylococcus epidermidis Enterococcus gallinarum Anaerobic Culture - Final Anaerobic cocci Laboratory Tests Past 24 Hrs 11/28/18 11/28/18 11/28/18 05:15 05:26 05:26 WBC 6.9 RBC 3.18 L Hgb 8.2 L Hct 26.6 L MCV 83.6 MCH 25.8 L MCHC 30.8 L RDW 16.8 H RDW Differential 51.5 H Plt Count 273 MPV 9.5 Immature Gran % (Auto) 0.100 Neut % (Auto) 69.6 Lymph % (Auto) 17.3 L Cochran % (Auto) 7.4 Eos % (Auto) 5.5 H Baso % (Auto) 0.1 Absolute Neuts (auto) 4.8 Absolute Lymphs (auto) 1.19 Total Counted Not Reportable PT 15.9 H INR 1.3 APTT 35.1 Sodium Potassium Chloride Carbon Dioxide Anion Gap BUN Creatinine Estim Creat Clear Calc Est GFR (MDRD) Af Amer Est GFR (MDRD) Non-Af BUN/Creatinine Ratio Glucose Calcium Urine Color Yellow Urine Clarity Sl Cldy Urine pH 6.5 Ur Specific Arvin 1.010 Urine Protein Negative Urine Glucose (UA) Normal Urine Ketones Negative Urine Occult Blood Negative Urine Nitrite Negative Urine Bilirubin Negative Urine Urobilinogen Normal Ur Leukocyte Esterase 25 H Urine RBC 0 SEEN Urine WBC 0-5 SEEN Ur Squamous Epith Cells 0 SEEN Urine Bacteria 0 SEEN Urine Mucus 0 SEEN 11/28/18 05:26 WBC RBC Hgb Hct MCV MCH MCHC RDW RDW Differential Plt Count MPV Immature Gran % (Auto) Neut % (Auto) Lymph % (Auto) Cochran % (Auto) Eos % (Auto) Baso % (Auto) Absolute Neuts (auto) Absolute Lymphs (auto) Total Counted PT INR APTT Sodium 138 Potassium 3.3 L Chloride 100 Carbon Dioxide 33.0 H Anion Gap 5 BUN 12 Creatinine 0.36 L Estim Creat Clear Calc 42.07 Est GFR (MDRD) Af Amer 226 Est GFR (MDRD) Non-Af 187 BUN/Creatinine Ratio 33.1 H Glucose 143 H Calcium 8.5 Urine Color Urine Clarity Urine pH Ur Specific Arvin Urine Protein Urine Glucose (UA) Urine Ketones Urine Occult Blood Urine Nitrite Urine Bilirubin Urine Urobilinogen Ur Leukocyte Esterase Urine RBC Urine WBC Ur Squamous Epith Cells Urine Bacteria Urine Mucus POC Glucose 11/28/18 11/28/18 11/28/18 16:34 10:47 06:40 POC Glucose 219 H 157 H 156 H 11/27/18 20:53 POC Glucose 228 H Medical Necessity - Tobacco Use Smoking Status: Former smoker Tobacco Use: Non-smoker Route of nutrition/ use of supplements: [] Nutritional Intake: [] IV Site: [] Wong Catheter: [] - Assessment/Plan Antibiotics: [] Assessment/Plan: [] Active and Suspected Problems (Last Updated 11/23/18 @ 09:47 by Trae García MD) Elevated troponin (Acute) Hidradenitis suppurativa with extensive sacral pilonidal abscess, now s/p I&D by Dr. Eaton 11/22/18. Surg cx with MSSE, Enterococcus galinarium, and anaerobes. No fever, normal wbc. Given elisha-anal involvement, plan is for diverting ostomy in order to help this heal. Cont unasyn. Should be able to change to po abx at time of transfer. Will follow
[2018-11-28] MEDS: 0.9% NaCl Peripheral Flush Adult/Peds IV (18:17)
[2018-11-28] MEDS: Docusate Sodium 100 MG Capsule PO (21:07)
[2018-11-28] MEDS: Atorvastatin Calcium 80 MG Tablet PO (21:08)
[2018-11-28] MEDS: Pramipexole Di-HCl 0.25 MG Tablet PO (21:08)
[2018-11-28] MEDS: Latanoprost 0.005% 1 Bottle 1 DRP OPHTHALMIC (21:09)
[2018-11-28 22:30] LABS: Bedside Glucose 221 mg/dL (70-110)
[2018-11-29] VITALS (16 sets, daily range): BP systolic 106–129; BP diastolic 38–75; PULSE 59–94; RESP 16–22; TEMP 36.5–37.6; O2SAT 88–98
[2018-11-29] MEDS: oxyCODONE 5 MG Tablet 10 MG PO ×3 (01:31→22:24)
[2018-11-29 05:56] LABS: Hematocrit 28.6 % (37-47); Hemoglobin 8.7 g/dl (12.0-15.0); Mean Corp Hgb Conc 30.4 g/gl (32-36); Mean Corpuscular Hgb 25.5 pg (27.0-32.0); Mean Corpuscular Volume 83.9 fL (81-99); Mean Platelet Vol. 9.4 fl (6.2-12.0); Platelet Count 293 K/mm3 (150-450); RBC Distribution Width CV 16.7 % (11.6-14.6); RBC Distribution Width SD 49.3 fl (35.1-43.9); Red Blood Count 3.41 M/mm3 (4.2-5.4); White Blood Count 7.1 K/mm3 (4.4-11.0)
[2018-11-29 06:00] LABS: Scan Indicated on CBC? Y/N NO
[2018-11-29 06:12] LABS: Anion Gap 4 (5-15); BUN 15 mg/dL (7-18); BUN/Creat Ratio 36.9 RATIO (10-20); Calcium,Total 8.1 mg/dL (8.5-10.1); Chloride 103 mmol/L (98-107); Creatinine, Serum 0.41 mg/dL (0.55-1.02); EST Glomerular Filtration Rate 163 mL/min (>60); Est Glom Filt Rate - Afr Amer 197 mL/min (>60); Estimated Creatinine Clearance 42.07 ml/min; Glucose 95 mg/dL (74-106); Potassium 3.2 mmol/L (3.5-5.1); Sodium Level 142 mmol/L (136-145)
[2018-11-29] MEDS: Levothyroxine 175 MCG Tablet PO (06:37)
[2018-11-29] MEDS: Enoxaparin 40 MG/0.4 ML Syringe SC (06:37)
[2018-11-29 06:51] LABS: Bedside Glucose 120 mg/dL (70-110)
[2018-11-29] MEDS: Budesonide Respules 0.5 MG/2 ML AMPUL.NEB. INHALATION ×2 (06:58→18:58)
[2018-11-29] MEDS: Ipratropium/Albuterol Sulfate 3 ML AMPUL.NEB INHALATION ×3 (06:58→18:58)
[2018-11-29] MEDS: Losartan Potassium 25 MG Tablet PO (08:38)
[2018-11-29] MEDS: Aspirin 81 MG TAB.CHEW PO (08:38)
[2018-11-29] MEDS: Nystatin Powder 15gm Bottle 1 APPLIC TOPICAL ×2 (08:38→22:24)
[2018-11-29] MEDS: Iron Polysaccharide Complex 150 MG CAPSULE PO (08:38)
[2018-11-29] MEDS: Fenofibrate 48 MG Tablet PO (08:38)
[2018-11-29] MEDS: Furosemide 40 MG Tablet PO (08:38)
[2018-11-29] MEDS: Citalopram 20 MG Tablet PO (08:38)
[2018-11-29] MEDS: Docusate Sodium 100 MG Capsule PO (08:39)
[2018-11-29] MEDS: DiphenhydrAMINE 25 MG Capsule 50 MG PO ×2 (08:42→22:24)
[2018-11-29] MEDS: Glucerna Shake 120 ML LIQUID PO (08:42)
--- NOTE | 2018-11-29 10:59 | PCM.PN.BLA ---
Progress Note Patient evaluated this morning. She denies any questions or concerns in regards to diverting colostomy procedure which is scheduled for tomorrow afternoon with Dr. Serrato. We will plan to perform a bowel prep this afternoon. Pre-op antibiotics ordered for tomorrow. Discussed patient with Sarah who will be marking the patient today. Code Visit Inpatient E&M: [id number] [facility] Hosp L1
--- NOTE | 2018-11-29 11:02 | PN_ITS ---
Progress Note Patient evaluated this morning. She denies any questions or concerns in regards to diverting colostomy procedure which is scheduled for tomorrow afternoon with Dr. Serrato. We will plan to perform a bowel prep this afternoon. Pre-op antibiotics ordered for tomorrow. Discussed patient with Sarah who will be marking the patient today. Code Visit Inpatient E&M: [id number] [facility] Hosp L1
[2018-11-29] MEDS: Insulin Lispro 100 UNIT/ML INSULN.PEN SQ (11:10)
[2018-11-29] MEDS: Insulin Human 75/25 Kwickpen 20 UNIT SC ×2 (11:11→22:32)
[2018-11-29 12:01] LABS: Bedside Glucose 223 mg/dL (70-110)
[2018-11-29] MEDS: Electrolyte Solution/Peg's 4000 ML 2000 ML PO (13:37)
--- NOTE | 2018-11-29 14:45 | PCM.PROGNOTE ---
Patient Problems: Active and Suspected Problems (Last Reviewed 11/27/18 @ 15:09 by Eula Tirado PA-C) Elevated troponin (Acute) Subjective: #5 Unasyn All events of the past 24 hours of been reviewed. She is afebrile. Vital signs are stable. She is 94% saturated on 2 L nasal cannula. Hemoglobin is stable at 8.7. Platelets and white blood cell count are within normal limits. Potassium is low at 3.2 despite supplementation. Serum bicarb is increasing and is 35 today. BUN is 15 with a creatinine of 0.41. Bowel prep ordered today for planned diverting colostomy tomorrow. Denies abd pain continues to c/o back pain but, IU have not seen her out of bed this admission Objective: GENERAL: alert, oriented X 3, Cooperative, NAD, laying in bed again ORAL: moist mucosa, no mucosal lesions NECK: No JVD, supple, trachea midline LUNGS: Coarse crackles in the bases only likely secondary to atelectasis, symmetric chest expansion, not tachypneic, no conversational dyspnea HEART: RRR, Normal S1 and S2, no rub, no gallop TELEMETRY: Normal sinus rhythm with no significant ectopy ABDOMEN: soft, NT, ND, BS present, no guarding with palpation, obese EXTREMITIES: no edema, no cyanosis, no calf tenderness SKIN: No rashes, no breakdown NEUROLOGIC: no focal neurologic deficits PSYCH: appropriate, normal affect, pleasant There is documentation in the PT notes only 1 time that she was asked to ambulate and she refused because she was tired and painful. - Physical Exam Vital Signs Temp Pulse Resp BP Pulse Ox 98.7 F 72 16 113/58 L 94 11/29/18 14:20 11/29/18 14:20 11/29/18 14:20 11/29/18 14:20 11/29/18 14:20 Oxygen Flow Rate (L/min) 2 Oxygen Delivery Method Nasal Cannula Weight: 217 lb 9.54 oz Body Mass Index (BMI) 39.6 Intake and Output for Last 24 Hours 11/27/18 11/28/18 11/29/18 23:59 23:59 23:59 Intake Total 1166 / 1166 3218 / 3218 1507 / 1507 Output Total 2600 / 2600 2735 / 2735 1150 / 1150 Balance -1434 / -1434 483 / 483 357 / 357 Microbiology Past 72 Hours 11/22/18 12:34 Gram Stain - Final Tissue - Other Wound Culture - Final Staphylococcus epidermidis Enterococcus gallinarum Anaerobic Culture - Final Anaerobic cocci Laboratory Tests Past 24 Hrs 11/29/18 11/29/18 05:30 05:30 WBC 7.1 RBC 3.41 L Hgb 8.7 L Hct 28.6 L MCV 83.9 MCH 25.5 L MCHC 30.4 L RDW 16.7 H RDW Differential 49.3 H Plt Count 293 MPV 9.4 Sodium 142 Potassium 3.2 L Chloride 103 Carbon Dioxide 35.0 H Anion Gap 4 L BUN 15 Creatinine 0.41 L Estim Creat Clear Calc 42.07 Est GFR (MDRD) Af Amer 197 Est GFR (MDRD) Non-Af 163 BUN/Creatinine Ratio 36.9 H Glucose 95 Calcium 8.1 L POC Glucose 11/29/18 11/29/18 11/28/18 11:09 06:40 21:04 POC Glucose 223 H 120 H 221 H 11/28/18 16:34 POC Glucose 219 H Medical Necessity - Tobacco Use Smoking Status: Former smoker Tobacco Use: Non-smoker Assessment/Plan All Active Problems (Last Reviewed 11/27/18 @ 15:09 by Eula Tirado PA-C) Open wound of sacroiliac region with complication (Acute) Open wound of buttock (Acute) Elevated troponin (Acute) Impressions 1. Hidradenitis of the perianal area status post I&D with excisional debridement by Dr. Eaton 2. NSTEMI-type II secondary to demand ischemia related to hypotension and acute hypercapnic respiratory failure 3. Acute hypercapnic respiratory failure 4. COPD 5. Type 2 diabetes mellitus 6. Hypertension 7. Hypothyroidism 8. Chronic respiratory failure with hypoxemia 9. Abnormal nuclear stress test 10. Coronary artery disease with good collaterals -no intervention at the time of cardiac cath. Medical management recommended 11. Metabolic alkalosis Patient is agreeable to diverting colostomy and is currently undergoing a bowel prep for planned surgery on 11/30/[address] Pattersonbody [facility] need [facility] [place]. The wound vac can be applied after diverting colostomy because she will not be having BM's and a good seal can be achieved. Recheck lab in the a.m. Obtain an ABG Code Visit Inpatient E&M: [id number] [facility] Hosp L2
[2018-11-29 15:31] LABS: Allen Test POS; Base Excess 10 mmol/L (-2 to +2); Bicarbonate 33.8 mmol/L (22-26); Blood Gas Specimen Type ART; O2 Delivery Device Nasal Can; PO2 64 mmHG (75-100); SITE L Radial; SO2 93 % (95-99); Time Given 1520; Total Carbon Dioxide 35 mmol/L; pCO2 48.3 mmHg (35-45); pH 7.45 (7.35-7.45)
--- NOTE | 2018-11-29 15:54 | NURSING ---
Pt is scheduled for a diverting sigmoid colostomy tomorrow afternoon per Dr Serrato. In to [facility] abdomen for the stoma. Pt states that she has had a hysterectomy in the past and they cut me wrong. the left abdomen does appear somewhat larger than the left side. possible umbilical hernia. area marked to the left lower quadrant. pt states that she wears pants above the umbilicus. when patient is sitting the marking is not within a fold. marking is at least 3 fingerbreadths from the umbilicus as well. abdomen is large and rounded. surgeon may still need to change the location of the stoma depending on how the surgery goes. patient is currently getting the bowel prep. dressing was changed, but will most likely need changed often through the evening. placed an opsite over the skin marking.
[2018-11-29 17:15] LABS: Bedside Glucose 111 mg/dL (70-110)
[2018-11-29] MEDS: Atorvastatin Calcium 80 MG Tablet PO (22:24)
[2018-11-29] MEDS: Pramipexole Di-HCl 0.25 MG Tablet PO (22:24)
[2018-11-29] MEDS: Latanoprost 0.005% 1 Bottle 1 DRP OPHTHALMIC (22:24)
--- NOTE | 2018-11-29 22:30 | PCM.PN.SRG ---
Patient Problems: Active and Suspected Problems (Last Reviewed 11/27/18 @ 15:09 by Eula Tirado PA-C) Elevated troponin (Acute) Subjective: Postop #7 Patient is resting comfortably. - Physical Exam General: Alert, Oriented x3 HEENT: PERRLA, EOMI Oral: Moist Mucosa Neck: Supple Abdomen: Soft, Non-Distended Skin: Ulcer/ Wound - bilateral perianal wound and sacral wound is stable. No active bleeding seen. Redressed with Aquacel Silver and moistened kerlix gauze. Will switch to saline gauze dressings after bowel movements. Neurological: Cranial nerves II-XII grossly intact Psych/Mental Status: Normal Affect, Appropriate Vital Signs Temp Pulse Resp BP Pulse Ox 99.4 F H 82 18 116/75 95 11/29/18 22:16 11/29/18 22:16 11/29/18 22:16 11/29/18 22:16 11/29/18 22:16 Oxygen Flow Rate (L/min) 3 Oxygen Delivery Method Nasal Cannula Weight: 217 lb 9.54 oz Body Mass Index (BMI) 39.6 Intake and Output for Last 24 Hours 11/27/18 11/28/18 11/29/18 23:59 23:59 23:59 Intake Total 1166 / 1166 3218 / 3218 4060 / 4060 Output Total 2600 / 2600 2735 / 2735 1150 / 1150 Balance -1434 / -1434 483 / 483 2910 / 2910 Microbiology Past 72 Hours 11/29/18 17:22 Stool Occult Blood (REENA) - Final Stool Laboratory Tests Past 24 Hrs 11/29/18 11/29/18 11/29/18 05:30 05:30 15:27 WBC 7.1 RBC 3.41 L Hgb 8.7 L Hct 28.6 L MCV 83.9 MCH 25.5 L MCHC 30.4 L RDW 16.7 H RDW Differential 49.3 H Plt Count 293 MPV 9.4 Specimen Type ART Sample Site L Radial pH 7.45 Bicarbonate Actual 33.8 H POC Total CO2 35 Base Excess 10 H O2 Saturation 93 L ABG pCO2 48.3 H ABG pO2 64 L Andrew Test POS O2 Delivery Device Nasal Can Liter Flow 3.0 Blood Gas Notified Whom [facility] Blood Gas Notified Time 1520 Sodium 142 Potassium 3.2 L Chloride 103 Carbon Dioxide 35.0 H Anion Gap 4 L BUN 15 Creatinine 0.41 L Estim Creat Clear Calc 42.07 Est GFR (MDRD) Af Amer 197 Est GFR (MDRD) Non-Af 163 BUN/Creatinine Ratio 36.9 H Glucose 95 Calcium 8.1 L POC Glucose 11/29/18 11/29/18 11/29/18 17:12 11:09 06:40 POC Glucose 111 H 223 H 120 H 11/28/18 21:04 POC Glucose 221 H Medical Necessity - Tobacco Use Smoking Status: Former smoker Tobacco Use: Non-smoker Assessment/Plan All Active Problems (Last Reviewed 11/27/18 @ 15:09 by Eula Tirado PA-C) Open wound of sacroiliac region with complication (Acute) Open wound of buttock (Acute) Elevated troponin (Acute) 1. Hidradenitis bilateral perianal areas. 2. Extensive, complicated pilonidal cyst abscess. 3. Former smoker. 4. s/p surgical preparation bilateral perianal areas with excision hidradenitis (162.5 cm2) and excision extensive, complicated pilonidal cyst abscess (75 cm2). 5. Anemia of chronic disease, acute on chronic. Wound was re-dressed with Aquacel Silver today. Operative culture showed Staphylococcus epidermidis and Enterococcus gallinarum and Anaerobic cocci. Continue the Unasyn. Infectious Diseases involved with antibiotic management. Prealbumin was 13.7. Encourage nutritional supplementation with protein to help the healing process. Hgb increased to 8.7 from 8.2. Had PRBC a few days ago. She has anemia of chronic disease, acute on chronic. Had 250 ml of operative blood loss. Also some IV dilution. Continue iron supplementation. Reiterated to the patient the importance of taking a shower after each bowel movement to minimize stool contamination. If stool contamination becomes an issue, then she would need a diverting colostomy. She voices understanding. It has been reported that when she had a bowel movement today, the irrigation was painful and with her shoulder injury. It will be difficult to maintain a clean wound consistently. She is at increased risk for stool contamination. So instead of waiting until she gets a bad infection that may be life threatening, I discussed a temporary diverting colostomy with the patient. She is agreeable. She has concerns about the anesthetic because of what happened last time that required re-intubation and transfer to the ICU. She had her stress test and angiogram. She has some blockages that can be treated with medication at this time. Ok to proceed with colostomy. It is scheduled for tomorrow. Recommend she go to an ECF at discharge. ECF evaluation in process.
[2018-11-29 22:55] LABS: Bedside Glucose 137 mg/dL (70-110)
--- NOTE | 2018-11-29 23:25 | CPS ---
Pt. started over-night trend @ R/A, but her SpO2 dropped to 85% pretty quickly. I titrated to 1lpm, and pt.'s SpO2 is staying @ 88% steadily. I informed the pt.'s nurse that liter flow is down from 3lpm to 1lpm via over-night trend. I informed nurse to call me if she needs anything regarding the pt.'s oxygenation status
[2018-11-30] VITALS (23 sets, daily range): BP systolic 103–149; BP diastolic 54–82; PULSE 62–81; RESP 12–23; TEMP 36.1–37.1; O2SAT 88–99; BMI 38.4
--- NOTE | 2018-11-30 | COLBX_PTH ---
PATIENT: CHRISS VERA LOC: PCU U#:[id number] AGE/SX: 73/F ROOM: [facility] RE11/22/[address]: Dr. Joana Campoverde MD : [id number] BED: 1 DIS: 12/03/2018 SPEC #: [id number] RECD: 12/03/18 07:15 STATUS: TUAN RE #: [id number] DOUGLAS: 11/30/18 00:[address]: Anselmo Serrato DEPT: SURGICAL PATHOLOGY RECD BY: Fiordaliza Shrestha ENTERED: 12/03/18 11:31 SP TYPE: COLON BX OTHR DR: MD Dr. Luis Sevilla MD Dr. Ghasem E Ashelfah, MD Dr. James A Slaby, MD Dr. Paul Moodispaw, MD Dr. Robert Leininger, MD Lindsey Lorson, US [employer]S AND BORDER OFFICER-C Tissues: Sigmoid colon biopsy Procedures: Surgery Specimen Level III HEADER OPERATION: Laparoscopic diverting sigmoid colostomy PRE-OP DIAGNOSIS: Open sacral wound with complication TISSUE SUBMITTED: Sigmoid colon tissue MICROSCOPIC DIAGNOSIS Sigmoid colon tissue, diverting sigmoid colostomy: Two segments of colon, no pathologic diagnosis. Two benign pericolonic lymph nodes. RENUKA:del 12/04/18 MICROSCOPIC DESCRIPTION Slides are reviewed. GROSS DESCRIPTION Received in fixative is one container labeled with the patient's name and designated sigmoid colon tissue. The specimen consists of two segments of colon with attached pericolonic adipose tissue. One of the segments measure 2.5 cm in length and up to 3.5 cm in diameter. The resection margins are not stapled. No mucosal lesion is identified. The second segment of colon measures 1.5 cm in length and 4 cm in diameter. One resection margin is stapled. No mucosal lesion is identified. Program Proposals Coordinator sections are submitted in three cassettes as follows: 1 & 2 - larger segment of colon, 3 - smaller segment of colon. / RENUKA:del 12/03/18 TC:5 CPT: 57904
[2018-11-30 05:41] LABS: Absolute Lymphocyte Count 1.36 X10^3/ul (0.83-4.51); Absolute Neutrophil Count 5.1 X10^3/uL (2.0-7.7); Basophil# 0.02 X10^3/uL; Basophil% 0.3 % (0-1); Eosinophil# 0.36 X10^3/uL; Eosinophils% 4.9 % (0-5); Hemoglobin 8.9 g/dl (12.0-15.0); Lymphocyte # 1.36 X10^3/ul (4.0); Lymphocyte % 18.4 % (19-41); Mean Corp Hgb Conc 30.7 g/gl (32-36); Mean Corpuscular Hgb 25.6 pg (27.0-32.0); Mean Corpuscular Volume 83.6 fL (81-99); Mean Platelet Vol. 9.6 fl (6.2-12.0); Monocyte% 6.8 % (0-10); Neutrophil # 5.11 X10^3/uL (2.7-7.7); Neutrophil % 69.2 % (47-70); Platelet Count 305 K/mm3 (150-450); RBC Distribution Width CV 16.8 % (11.6-14.6); RBC Distribution Width SD 49.8 fl (35.1-43.9); Red Blood Count 3.47 M/mm3 (4.2-5.4); White Blood Count 7.4 K/mm3 (4.4-11.0)
[2018-11-30 05:42] LABS: POSITIVE COUNT NO; POSITIVE DIFFERENTIAL NO; POSITIVE MORPHOLOGY NO
[2018-11-30 05:46] LABS: International Normalized Ratio 1.3; Prothrombin Time (Protime)PT. 15.7 SECONDS (11.7-14.9)
[2018-11-30 05:47] LABS: Partial Thromboplast Time 33.5 Seconds (24.1-36.2)
--- NOTE | 2018-11-30 05:55 | EKG12_ITS ---
Test Reason : AM EKG Blood Pressure : / mmHG Vent. Rate : 072 BPM Atrial Rate : 072 BPM P-R Int : 174 ms QRS Dur : 100 ms QT Int : 360 ms P-R-T Axes : -08 -14 105 degrees QTc Int : 394 ms Normal sinus rhythm Nonspecific T wave abnormality Abnormal ECG Confirmed by MARILYN PITTMAN, BRYANT ([id number]), scientific editor MARYANNE TIJERINA ([id number]) on 12/03/2018 12:23:23 PM Referred By: Dustin Eaton Confirmed By:BRYANT SANDERS MD
[2018-11-30 06:07] LABS: Anion Gap 5 (5-15); BUN 16 mg/dL (7-18); BUN/Creat Ratio 39.7 RATIO (10-20); Calcium,Total 8.7 mg/dL (8.5-10.1); Chloride 102 mmol/L (98-107); EST Glomerular Filtration Rate 165 mL/min (>60); Est Glom Filt Rate - Afr Amer 200 mL/min (>60); Estimated Creatinine Clearance 40.22 ml/min; Glucose 99 mg/dL (74-106); Potassium 3.2 mmol/L (3.5-5.1); Sodium Level 140 mmol/L (136-145); Thyroid Stim Hormone (TSH) 0.23 uIU/mL (0.358-3.74)
[2018-11-30] MEDS: Levothyroxine 175 MCG Tablet PO (06:27)
[2018-11-30] MEDS: 0.9% NaCl Peripheral Flush Adult/Peds IV ×2 (06:41→11:24)
[2018-11-30 07:05] LABS: Bedside Glucose 100 mg/dL (70-110)
[2018-11-30 07:31] LABS: Hemoglobin A1c 6.2 % (4.2-6.3)
[2018-11-30] MEDS: Potassium Chloride 10mEq/100mL 10 MEQ/100 ML IV.SOLN. 100 MEQ IV BOLUS ×4 (08:54→12:34)
[2018-11-30] MEDS: Nystatin Powder 15gm Bottle 1 APPLIC TOPICAL ×2 (10:11→21:03)
[2018-11-30] MEDS: Losartan Potassium 25 MG Tablet PO (10:12)
[2018-11-30] MEDS: Furosemide 40 MG Tablet PO (10:12)
[2018-11-30 11:25] LABS: Bedside Glucose 116 mg/dL (70-110)
--- NOTE | 2018-11-30 12:33 | NURSING ---
Dressing was changed by MARK Jones this morning. pt is scheduled for a diverting colostomy this afternoon with Dr Serrato. Did not removed the dressing at this time. wound VAC to hopefully be applied Monday.
--- NOTE | 2018-11-30 12:55 | NURSING ---
Called report to Harriet FLORES in [facility]
--- NOTE | 2018-11-30 14:19 | PCM.OPRPT ---
Problem List (1) Open wound of sacroiliac region with complication Status: Acute Qualifiers: Encounter type: subsequent encounter Qualified Code(s): S31.000D - Unspecified open wound of lower back and pelvis without penetration into retroperitoneum, subsequent encounter Report of Operation Date of Procedure: 11/30/18 Pre-Operative Diagnosis: Open sacral wound with complication Post-Operative Diagnosis: Same Surgery/Procedure Performed:: Laparoscopic creation of a sigmoid colostomy (Michelle's procedure) Type of Anesthesia:: General Anesthesiologist: Korey Nice Specimen's removed: sigmoid colon Estimated Blood Loss (mL): < 25 cc Description of Procedure: She was brought in the operating room placed in the supine position under excellent general trach intubation the abdomen was sterilely prepped and draped in usual fashion local was injected above the umbilicus incision was made Visiport was used to gain access to the intra-abdominal cavity without injury to underlying structures. I placed a right midclavicular port and a port through the area where we are going to place the stoma. Both of these put under direct visualization without injury to underlying structures. Patient had dense adhesions in the midline from her previous surgeries I took these initially down with a harmonic dissector but she did have a loop of small bowel that was stuck up there that I needed to use laparoscopic Metzenbaum scissors and I was very successful at doing this but it took a long time to get the small bowel completely off of the preperitoneal fascia. Once this was completed I had all the small bowel down and all the adhesions down I then placed a 1012 trocar through a right lower quadrant incision under direct visualization. Patient was placed in the headdown rotated to the left. I used the harmonic dissector created a window in between the fascia of the sigmoid colon down towards the sacral prominence and created a small window here and then went and took the white line of Toldt down in the process of doing this identified the ureter once I had gotten all the way around the colon I transected the sigmoid colon with a 60 stapler. I then used the Enseal to come down on the mesentery. As I was doing this I was hoping that I would not have to take the inferior mesenteric artery however this was not the case I had the placed 2 hemoclips proximally and one distally and ligated the artery after I did this I then was able to mobilize the rest of the cyst descending colon so that I could have the proper length to bring it up to the stoma site I had good hemostasis I cut a skin incision out used electrocautery down to the fascia opened up the fascia I was able to grasp the sigmoid colon with a Simeon and bring it through the opening as I did this I inspected it it looked viable I put sutures into the fascia below and into the colon of 0 Vicryl I then matured the stoma as I looked at the stoma I just was not satisfied with it I took everything down and then went back in mobilized the colon once again on the descending colon just to get extra length and then went back and I was able to bring more of the sigmoid colon up to where it was viable. I cut off the dusky and nonviable sigmoid colon I had a bleeding edge once again I sutured the colon into the fascia below with 0 Vicryl and I also tightened up the defect with an 0 Vicryl as well I then matured the stoma using 3-0 Vicryl. At the end the stoma was starting to sweat I felt that this was going to be a viable stoma I read inflated the abdomen one more time inspected and had good hemostasis remove the 1012 trocar I had to tie off 1 of the superior venous vessels I then closed the fascia with a 0 Vicryl other 2 trochars were removed after the abdomen was deflated Exparel was injected around the stoma skin incisions were closed with septicum stitches of 4-0 Monocryl and appliance was applied and the patient tolerated the procedure well. We lost very little blood throughout this procedure probably no more than 25 cc. - Admit VTE Documentation VTE Present on Admission: No VTE Mechan Device Prophylaxis: SCD's VTE Pharm Prophylaxis ordered?: No Reason prophylaxis not ordered:: Treatment Not Indicated
[2018-11-30] MEDS: BUPIVACAINE LIPOSOME/PF 20 ML VIAL OPERA.SITE (14:30)
[2018-11-30 17:50] LABS: Base Excess 4 mmol/L (-2 to +2); Bicarbonate 29.2 mmol/L (22-26); Blood Gas Specimen Type ART; EPAP 6; FI02 45; IPAP 12; PO2 65 mmHG (75-100); RR 12; SITE L Radial; SO2 92 % (95-99); Time Given 1747; Total Carbon Dioxide 31 mmol/L; pH 7.38 (7.35-7.45)
[2018-11-30 17:56] LABS: Bedside Glucose 202 mg/dL (70-110)
--- NOTE | 2018-11-30 18:25 | NURSING ---
Called report to Daniel FLORES in ICU
--- NOTE | 2018-11-30 20:36 | PCM.PROGNOTE ---
Patient Problems: Active and Suspected Problems (Last Reviewed 11/27/18 @ 15:09 by Eula Tirado PA-C) Elevated troponin (Acute) Subjective: Patient is a 73-year-old female who was admitted to the hospital by Dr. Eaton for excision and debridement of hidradenitis affecting the perianal area on both sides. Following surgery she experienced acute respiratory failure secondary to sedating medications and narcotics and was intubated. She had a bad experience because she was not adequately sedated at the time of intubation and woke up intubated and tied down. Troponin was increased and she was seen by cardiology and diagnosed with demand ischemia. Wound vac could not be placed because the wound abutted the anus and a good seal could not be achieved. Diverting colostomy was recommended. Because of the elevation in troponin she had a stress test and it was abnormal. She had a cardiac cath on 11/28 and it showed a 70% stenosis in the mid LAD and a 100% stenosis of the mid RCA with collaterals from the left system to the distal RCA. No intervention was done and medical management was recommended. She was taken to surgery 11/[address] Serrato for a diverting colostomy. Patient was seen and examined postoperatively in the recovery room. Vital signs are stable. She is currently on BiPAP and is arousable and appropriate but falls back to sleep easily. ABG done on BiPAP with 12/6 settings shows pH of 7.38, PCO2 of 49 and a PO2 of 65 With an FiO2 of 45%. She will be receiving pain medication. - Physical Exam General: - - easily arousable falls back to sleep quickly. Lungs: Clear to auscultation, No rhonchi, No wheeze, No rales, Diminished Cardiovascular: Regular rate, Regular Rhythm, Normal S1, Normal S2, No murmurs, No Gallop Abdomen: Soft, Non-Distended, Hypoactive Bowel Sounds Extremities: No edema Skin: No rashes Vital Signs Temp Pulse Resp BP Pulse Ox 97.1 F L 63 18 127/59 H 97 11/30/18 17:58 11/30/18 19:15 11/30/18 19:15 11/30/18 19:15 11/30/18 19:15 Oxygen Flow Rate (L/min) 6 Oxygen Delivery Method Bi-pap Weight: 216 lb 14.958 oz Body Mass Index (BMI) 38.4 Finger Stick Blood Glucose 202 Intake and Output for Last 24 Hours 11/28/18 11/29/18 11/30/18 23:59 23:59 23:59 Intake Total 3218 / 3218 4625 / 4625 837 / 837 Output Total 2735 / 2735 1375 / 1375 2225 / 2225 Balance 483 / 483 3250 / 3250 -1388 / -1388 Microbiology Past 72 Hours 11/29/18 17:22 Stool Occult Blood (REENA) - Final Stool Laboratory Tests Past 24 Hrs 11/30/18 11/30/18 11/30/18 05:20 05:20 05:20 WBC RBC Hgb Hct MCV MCH MCHC RDW RDW Differential Plt Count MPV Immature Gran % (Auto) Neut % (Auto) Lymph % (Auto) [place] % (Auto) Eos % (Auto) Baso % (Auto) Absolute Neuts (auto) Absolute Lymphs (auto) Total Counted PT 15.7 H INR 1.3 APTT 33.5 Specimen Type Sample Site pH Bicarbonate Actual POC Total CO2 Base Excess O2 Saturation O2 % ABG pCO2 ABG pO2 Andrew Test Respiration Rate O2 Delivery Device EPAP IPAP Blood Gas Notified Whom Blood Gas Notified Time Sodium 140 Potassium 3.2 L Chloride 102 Carbon Dioxide 33.0 H Anion Gap 5 BUN 16 Creatinine 0.40 L Estim Creat Clear Calc 40.22 Est GFR (MDRD) Af Amer 200 Est GFR (MDRD) Non-Af 165 BUN/Creatinine Ratio 39.7 H Glucose 99 Hemoglobin A1c 6.2 Calcium 8.7 TSH 0.23 L 11/30/18 11/30/18 05:20 17:48 WBC 7.4 RBC 3.47 L Hgb 8.9 L Hct 29.0 L MCV 83.6 MCH 25.6 L MCHC 30.7 L RDW 16.8 H RDW Differential 49.8 H Plt Count 305 MPV 9.6 Immature Gran % (Auto) 0.400 Neut % (Auto) 69.2 Lymph % (Auto) 18.4 L [place] % (Auto) 6.8 Eos % (Auto) 4.9 Baso % (Auto) 0.3 Absolute Neuts (auto) 5.1 Absolute Lymphs (auto) 1.36 Total Counted Not Reportable PT INR APTT Specimen Type ART Sample Site L Radial pH 7.38 Bicarbonate Actual 29.2 H POC Total CO2 31 Base Excess 4 H O2 Saturation 92 L O2 % 45 ABG pCO2 49.0 H ABG pO2 65 L Andrew Test NA Respiration Rate 12 O2 Delivery Device Bi / C PAP EPAP 6 IPAP 12 Blood Gas Notified Whom OTHER Blood Gas Notified Time 1747 Sodium Potassium Chloride Carbon Dioxide Anion Gap BUN Creatinine Estim Creat Clear Calc Est GFR (MDRD) Af Amer Est GFR (MDRD) Non-Af BUN/Creatinine Ratio Glucose Hemoglobin A1c Calcium TSH POC Glucose 11/30/18 11/30/18 11/30/18 17:53 11:17 06:40 POC Glucose 202 H 116 H 100 11/29/18 22:28 POC Glucose 137 H Medical Necessity - Tobacco Use Smoking Status: Former smoker Tobacco Use: Non-smoker Assessment/Plan All Active Problems (Last Reviewed 11/27/18 @ 15:09 by Eula Tirado PA-C) Open wound of sacroiliac region with complication (Acute) Open wound of buttock (Acute) Elevated troponin (Acute) Impressions 1. Hidradenitis of the perianal area status post I&D with excisional debridement by Dr. Eaton 2. NSTEMI-type II secondary to demand ischemia related to hypotension and acute hypercapnic respiratory failure 3. Acute hypercapnic respiratory failure 4. COPD 5. Type 2 diabetes mellitus-blood sugars are adequately controlled 6. Hypertension 7. Hypothyroidism 8. Chronic respiratory failure with hypoxemia on home O2 9. Abnormal nuclear stress test 10. Coronary artery disease with good collaterals -no intervention at the time of cardiac cath. Medical management recommended 11. Metabolic alkalosis - due to volume contraction 12. Sleep disordered breathing 13. Status post diverting colostomy -requiring BiPAP with a 45% FiO2 in the recovery room to keep the PO2 at 65. 14. glaucoma 15. Dyslipidemia We will admit to the intensive care unit tonight where she can be closely observed while receiving pain medication continue BiPAP....... Recheck lab in the a.m. Limit narcotics as much as possible Wound VAC can now be applied prior to discharge Continue PT/OT, she needs to get up and move around more if she is going to be able to go home following retirement Continue Unasyn Hold 75/25 insulin and check Accu-Cheks every 6 hours with sliding scale insulin coverage Hold Lasix - had contraction alkalosis Discontinue Benadryl 50 mg 3 times daily as needed Hydralazine 10 mg every 4 hours IV as needed systolic over 160 or diastolic over 85 D5 half-normal saline at 100 cc/h until she is able to take a diet Not exactly sure why she is on Lasix because her left ventricular ejection fraction on stress was 71%. Code Visit Inpatient E&M: 22868 Subs Hosp L3
[2018-11-30] MEDS: Pramipexole Di-HCl 0.25 MG Tablet PO (21:02)
[2018-11-30] MEDS: Latanoprost 0.005% 1 Bottle 1 DRP OPHTHALMIC (21:02)
[2018-11-30] MEDS: Atorvastatin Calcium 80 MG Tablet PO (21:02)
[2018-11-30] MEDS: Docusate Sodium 100 MG Capsule PO (21:02)
[2018-11-30] MEDS: Dext 5%-0.45% NS 1,000 ML 100 ML IV (21:02)
[2018-11-30] MEDS: oxyCODONE 5 MG Tablet 10 MG PO (21:08)
[2018-12-01] VITALS (24 sets, daily range): BP systolic 104–133; BP diastolic 43–90; PULSE 61–79; RESP 15–21; TEMP 36.6–36.9; O2SAT 94–100
[2018-12-01] MEDS: Insulin Lispro 100 UNIT/ML INSULN.PEN SQ ×4 (00:44→17:13)
[2018-12-01 00:55] LABS: Bedside Glucose 250 mg/dL (70-110)
[2018-12-01] MEDS: oxyCODONE 5 MG Tablet 10 MG PO ×3 (04:13→22:21)
[2018-12-01 04:57] LABS: Hematocrit 25.4 % (37-47); Hemoglobin 7.7 g/dl (12.0-15.0); Mean Corp Hgb Conc 30.3 g/gl (32-36); Mean Corpuscular Hgb 25.6 pg (27.0-32.0); Mean Corpuscular Volume 84.4 fL (81-99); Mean Platelet Vol. 9.8 fl (6.2-12.0); Platelet Count 311 K/mm3 (150-450); RBC Distribution Width CV 16.6 % (11.6-14.6); RBC Distribution Width SD 49.2 fl (35.1-43.9); Red Blood Count 3.01 M/mm3 (4.2-5.4); White Blood Count 9.2 K/mm3 (4.4-11.0)
[2018-12-01 05:02] LABS: Scan Indicated on CBC? Y/N NO
[2018-12-01 05:27] LABS: Anion Gap 6 (5-15); BUN 14 mg/dL (7-18); BUN/Creat Ratio 24.2 RATIO (10-20); Calcium,Total 8.3 mg/dL (8.5-10.1); Chloride 101 mmol/L (98-107); Creatinine, Serum 0.58 mg/dL (0.55-1.02); EST Glomerular Filtration Rate 109 mL/min (>60); Est Glom Filt Rate - Afr Amer 131 mL/min (>60); Estimated Creatinine Clearance 40.22 ml/min; Glucose 256 mg/dL (74-106); Magnesium 1.7 mg/dL (1.6-2.6); Potassium 3.6 mmol/L (3.5-5.1); Sodium Level 139 mmol/L (136-145)
[2018-12-01 06:16] LABS: Bedside Glucose 244 mg/dL (70-110)
[2018-12-01] MEDS: Ipratropium/Albuterol Sulfate 3 ML AMPUL.NEB INHALATION ×2 (07:16→13:13)
[2018-12-01] MEDS: Budesonide Respules 0.5 MG/2 ML AMPUL.NEB. INHALATION (07:21)
--- NOTE | 2018-12-01 07:55 | PN.SURG_ITS ---
Patient Problems: Active and Suspected Problems (Last Reviewed 11/27/18 @ 15:09 by Eula Tirado PA-C) Elevated troponin (Acute) Subjective: Abdominal pain controlled with meds - Physical Exam General: Alert, Cooperative, No apparent distress Cardiovascular: Regular rate Abdomen: Soft, Non-Distended, Tender - Mild at incision sites, dressed clean dry and intact, no peritoneal signs, - - colostomy pink, no gas in bag Vital Signs Temp Pulse Resp BP Pulse Ox 97.8 F 74 18 120/46 L 99 12/01/18 04:00 12/01/18 07:17 12/01/18 07:17 12/01/18 06:00 12/01/18 06:00 Oxygen Flow Rate (L/min) 3 Oxygen Delivery Method Nasal Cannula Weight: 218 lb 7.649 oz Body Mass Index (BMI) 38.4 Finger Stick Blood Glucose 202 Intake and Output for Last 24 Hours 11/29/18 11/30/18 12/01/18 23:59 23:59 23:59 Intake Total 4625 / 4625 1643 / 1643 797 / 797 Output Total 1375 / 1375 2425 / 2425 250 / 250 Balance 3250 / 3250 -782 / -782 547 / 547 Microbiology Past 72 Hours 11/29/18 17:22 Stool Occult Blood (REENA) - Final Stool Laboratory Tests Past 24 Hrs 11/30/18 12/01/18 12/01/18 17:48 04:45 04:45 WBC 9.2 RBC 3.01 L Hgb 7.7 L Hct 25.4 L MCV 84.4 MCH 25.6 L MCHC 30.3 L RDW 16.6 H RDW Differential 49.2 H Plt Count 311 MPV 9.8 Specimen Type ART Sample Site L Radial pH 7.38 Bicarbonate Actual 29.2 H POC Total CO2 31 Base Excess 4 H O2 Saturation 92 L O2 % 45 ABG pCO2 49.0 H ABG pO2 65 L Andrew Test NA Respiration Rate 12 O2 Delivery Device Bi / C PAP EPAP 6 IPAP 12 Blood Gas Notified Whom OTHER Blood Gas Notified Time 1747 Sodium 139 Potassium 3.6 Chloride 101 Carbon Dioxide 32.0 Anion Gap 6 BUN 14 Creatinine 0.58 Estim Creat Clear Calc 40.22 Est GFR (MDRD) Af Amer 131 Est GFR (MDRD) Non-Af 109 BUN/Creatinine Ratio 24.2 H Glucose 256 H Calcium 8.3 L Magnesium 1.7 POC Glucose 12/01/18 12/01/18 11/30/18 06:07 00:43 17:53 POC Glucose 244 H 250 H 202 H 11/30/18 11:17 POC Glucose 116 H Medical Necessity - Tobacco Use Smoking Status: Former smoker Tobacco Use: Non-smoker Assessment/Plan All Active Problems (Last Reviewed 11/27/18 @ 15:09 by Eula Tirado PA-C) Open wound of sacroiliac region with complication (Acute) Open wound of buttock (Acute) Elevated troponin (Acute) 73-year-old female status post gluteal debridement and postop day 1 from diverting colostomy 1. Okay for sips and chips, await stoma function then okay to start clears and advance as tolerated. Amada Abdi M.D. Pager: [phone] [facility] [address] [place] [address], [facility], [address] [place] [address] Office: [phone]
[2018-12-01] MEDS: Dext 5%-0.45% NS 1,000 ML 100 ML IV ×2 (08:50→22:28)
[2018-12-01] MEDS: Losartan Potassium 25 MG Tablet PO (08:52)
--- NOTE | 2018-12-01 09:27 | CM.UR ---
Participated in interdisciplinary rounds this am. No family present. Plan is for patient to move to PCU today. Will need SNF placement d/t being discharged with new ostomy as well as a wound vac. Plan is for wound vac on Monday. Will alert SW. Bismark Rodarte RN, [facility].
--- NOTE | 2018-12-01 09:58 | PCM.PN.SRG ---
Patient Problems: Active and Suspected Problems (Last Reviewed 11/27/18 @ 15:09 by Eula Tirado PA-C) Elevated troponin (Acute) Subjective: Postop #9 Patient is resting comfortably. Had diverting colostomy yesterday. Spent the night in ICU. To be transferred to PCU today. - Physical Exam General: Alert, Oriented x3 HEENT: PERRLA, EOMI Oral: Moist Mucosa Neck: Supple Skin: Ulcer/ Wound - bilateral perianal wound and sacral wound is stable. No active bleeding seen. Redressed with Aquacel Silver and moistened kerlix gauze. Neurological: Cranial nerves II-XII grossly intact Psych/Mental Status: Normal Affect, Appropriate Vital Signs Temp Pulse Resp BP Pulse Ox 97.8 F 70 15 125/54 H 99 12/01/18 04:00 12/01/18 09:00 12/01/18 09:00 12/01/18 09:00 12/01/18 09:00 Oxygen Flow Rate (L/min) 3 Oxygen Delivery Method Nasal Cannula Weight: 218 lb 7.649 oz Body Mass Index (BMI) 38.4 Finger Stick Blood Glucose 202 Intake and Output for Last 24 Hours 11/29/18 11/30/18 12/01/18 23:59 23:59 23:59 Intake Total 4625 / 4625 1643 / 1643 797 / 797 Output Total 1375 / 1375 2425 / 2425 250 / 250 Balance 3250 / 3250 -782 / -782 547 / 547 Microbiology Past 72 Hours 11/29/18 17:22 Stool Occult Blood (REENA) - Final Stool Laboratory Tests Past 24 Hrs 11/30/18 12/01/18 12/01/18 17:48 04:45 04:45 WBC 9.2 RBC 3.01 L Hgb 7.7 L Hct 25.4 L MCV 84.4 MCH 25.6 L MCHC 30.3 L RDW 16.6 H RDW Differential 49.2 H Plt Count 311 MPV 9.8 Specimen Type ART Sample Site L Radial pH 7.38 Bicarbonate Actual 29.2 H POC Total CO2 31 Base Excess 4 H O2 Saturation 92 L O2 % 45 ABG pCO2 49.0 H ABG pO2 65 L Andrew Test NA Respiration Rate 12 O2 Delivery Device Bi / C PAP EPAP 6 IPAP 12 Blood Gas Notified Whom OTHER Blood Gas Notified Time 174 Sodium 139 Potassium 3.6 Chloride 101 Carbon Dioxide 32.0 Anion Gap 6 BUN 14 Creatinine 0.58 Estim Creat Clear Calc 40.22 Est GFR (MDRD) Af Amer 131 Est GFR (MDRD) Non-Af 109 BUN/Creatinine Ratio 24.2 H Glucose 256 H Calcium 8.3 L Magnesium 1.7 POC Glucose 12/01/18 12/01/18 11/30/18 06:07 00:43 17:53 POC Glucose 244 H 250 H 202 H 11/30/18 11:17 POC Glucose 116 H Medical Necessity - Tobacco Use Smoking Status: Former smoker Tobacco Use: Non-smoker Assessment/Plan All Active Problems (Last Reviewed 11/27/18 @ 15:09 by Eula Tirado PA-C) Open wound of sacroiliac region with complication (Acute) Open wound of buttock (Acute) Elevated troponin (Acute) 1. Hidradenitis bilateral perianal areas. 2. Extensive, complicated pilonidal cyst abscess. 3. Former smoker. 4. s/p surgical preparation bilateral perianal areas with excision hidradenitis (162.5 cm2) and excision extensive, complicated pilonidal cyst abscess (75 cm2). 5. Anemia of chronic disease, acute on chronic. 6. s/p diverting colostomy. Wound was re-dressed with Aquacel Silver today. Operative culture showed Staphylococcus epidermidis and Enterococcus gallinarum and Anaerobic cocci. Continue the Unasyn. Infectious Diseases involved with antibiotic management. Prealbumin was 13.7. Encourage nutritional supplementation with protein to help the healing process. Hgb decreased to 7.7 after the diverting colostomy. To get PRBC today. Had PRBC a few days ago. She has anemia of chronic disease, acute on chronic. Had 250 ml of operative blood loss from the debridement. There was not much blood loss from the colostomy. Also some IV dilution. Continue iron supplementation. She had her stress test and angiogram. She has some blockages that can be treated with medication at this time. She is stable overnight in the ICU. Will transfer to PCU today. Recommend she go to an ECF at discharge. ECF evaluation in process.
--- NOTE | 2018-12-01 10:03 | NURSING ---
report called to pcu for transfer to room 102, present
--- NOTE | 2018-12-01 10:22 | PCM.PROGNOTE ---
Patient Problems: Active and Suspected Problems (Last Reviewed 11/27/18 @ 15:09 by Eula Tirado PA-C) Elevated troponin (Acute) Subjective: Chief complaint: Follow-up after consultation for postoperative medical management. Patient seen and examined. No acute events overnight. She is resting on her bed, no significant complaints. She is thirsty and asking for water. She denies abdominal pain, nausea or vomiting. She denies chest pain or shortness of breath. Her vital signs stable, pulse ox is maintained on 3 L which is her baseline at home. - Physical Exam General: Alert, Oriented x3, Cooperative, No apparent distress HEENT: Atraumatic, PERRLA, EOMI, Normocephalic Oral: Moist Mucosa, No Gingival or Mucosal Lesions/ Ulcerations Neck: Supple, No JVD, Negative Carotid Bruits, Trachea Midline, Thyroid Normal Size and Texture Lungs: Clear to auscultation, No rhonchi, No wheeze, No rales, Diminished Cardiovascular: Regular rate, Regular Rhythm, Normal S1, Normal S2, PMI Normal Abdomen: Bowel Sounds Present, Soft, Non Tender, Non-Distended, No Hepato-splenomegaly, - - Colostomy bag in place. Extremities: No clubbing, No cyanosis, No edema Skin: No rashes, Ulcer/ Wound Lymphatic: No Cervical, Supraclavicular, or Inguinal Adenopathy Neurological: Cranial nerves II-XII grossly intact, Neuro grossly intact Psych/Mental Status: Normal Affect, Appropriate, Alert and oriented to time, place, person, mood and affect Vital Signs Temp Pulse Resp BP Pulse Ox 97.8 F 64 16 122/59 H 98 12/01/18 04:00 12/01/18 10:00 12/01/18 10:00 12/01/18 10:00 12/01/18 10:00 Oxygen Flow Rate (L/min) 3 Oxygen Delivery Method Nasal Cannula Weight: 218 lb 7.649 oz Body Mass Index (BMI) 38.4 Finger Stick Blood Glucose 202 Intake and Output for Last 24 Hours 11/29/18 11/30/18 12/01/18 23:59 23:59 23:59 Intake Total 4625 / 4625 1643 / 1643 797 / 797 Output Total 1375 / 1375 2425 / 2425 250 / 250 Balance 3250 / 3250 -782 / -782 547 / 547 Microbiology Past 72 Hours 11/29/18 17:22 Stool Occult Blood (REENA) - Final Stool Laboratory Tests Past 24 Hrs 11/30/18 12/01/18 12/01/18 17:48 04:45 04:45 WBC 9.2 RBC 3.01 L Hgb 7.7 L Hct 25.4 L MCV 84.4 MCH 25.6 L MCHC 30.3 L RDW 16.6 H RDW Differential 49.2 H Plt Count 311 MPV 9.8 Specimen Type ART Sample Site L Radial pH 7.38 Bicarbonate Actual 29.2 H POC Total CO2 31 Base Excess 4 H O2 Saturation 92 L O2 % 45 ABG pCO2 49.0 H ABG pO2 65 L Andrew Test NA Respiration Rate 12 O2 Delivery Device Bi / C PAP EPAP 6 IPAP 12 Blood Gas Notified Whom OTHER Blood Gas Notified Time 1747 Sodium 139 Potassium 3.6 Chloride 101 Carbon Dioxide 32.0 Anion Gap 6 BUN 14 Creatinine 0.58 Estim Creat Clear Calc 40.22 Est GFR (MDRD) Af Amer 131 Est GFR (MDRD) Non-Af 109 BUN/Creatinine Ratio 24.2 H Glucose 256 H Calcium 8.3 L Magnesium 1.7 POC Glucose 12/01/18 12/01/18 11/30/18 06:07 00:43 17:53 POC Glucose 244 H 250 H 202 H 11/30/18 11:17 POC Glucose 116 H Microbiology 11/29/18 17:22 Stool Stool Occult Blood (REENA) - Final 11/22/18 12:34 Tissue - Other Gram Stain - Final 11/22/18 12:34 Tissue - Other Wound Culture - Final Staphylococcus epidermidis Enterococcus gallinarum 11/22/18 12:34 Tissue - Other Anaerobic Culture - Final Anaerobic cocci Medical Necessity - Tobacco Use Smoking Status: Former smoker Tobacco Use: Non-smoker Assessment/Plan All Active Problems (Last Reviewed 11/27/18 @ 15:09 by Eula Tirado PA-C) Open wound of sacroiliac region with complication (Acute) Open wound of buttock (Acute) Elevated troponin (Acute) This is a 73 years old female patient underwent extensive excision of bilateral perianal hidradenitis and extensive excision of complicated pilonidal cyst/abscess and her postoperative course complicated by acute non-ST elevation NM and acute on chronic anemia requiring blood transfusion. She underwent diversion sigmoid colostomy for open sacral wound with complications. #1 Polymicrobial bilateral perianal hidradenitis/complicated pilonidal cyst/abscess: Status post extensive excision, postoperative day 9. She is on IV Unasyn. Her vital signs are stable, afebrile. Wound culture revealed staph epidermidis, enterococcus and anaerobic cocci. Infectious disease on the case, managing antibiotics. Plastic surgery on the case as well, managing. Plan to transfer to PCU today. #2 status post diversion sigmoid colostomy: This was done because of open sacral wound with complications, infected, postoperative day 1. Patient denies any abdominal pain. Her vital signs are stable. General surgery of the case, allowed for clear liquids today. Respiratory status stable. #2 acute hypercapnic respiratory failure: After her first surgery on November 22, 2018, patient needed intubation and mechanical ventilation, status post extubation several days ago. She was transferred to ICU yesterday after the colostomy. Today, she is stable, respiratory status is a stable, plan to transfer to PCU. She is maintaining her pulse ox at 3 L which is at baseline at home. #3 Elevated troponin/probable acute non-ST elevation NM: Attributed to transient hypotension postoperatively in the ER. She had a stress test done that was abnormal and demonstrated post stress myocardial perfusion changes concerning for area of stress-induced ischemia. She underwent cardiac catheterization that revealed mild luminal irregularities of the left main artery, 70% stenosis of the LAD, results of the left circumflex, 100% stenosis of the mid RCA with collaterals. Decision was made for medical treatment. 2D echocardiogram revealed ejection fraction 55%, segmental wall dysfunction. She is on statins, losartan. #4 acute on chronic iron deficiency anemia: She received 1 unit of packed RBCs several days ago. Today, hemoglobin 7.7 g/dL. It is probably because of blood loss during surgery yesterday. Stool for occult blood was negative. Plan to transfuse 1 unit of packed RBCs, repeat CBC tomorrow morning. #5 type 2 diabetes mellitus: Blood sugar stable, continue sliding scale, keep holding metformin. #6 hypertension: Blood pressure stable, continue losartan, continue Lasix. #7 hypothyroidism: Continue levothyroxine. #8 COPD/chronic respiratory failure: She is on home oxygen at 3 L. At this time, pulse ox is maintained on 3 L, stable. #9 DVT prophylaxis: SCDs. This note was generated with [employer] software. It may contain incorrect words, spelling, and punctuation that were not noted in checking the note before signing. Code Visit Inpatient E&M: 96706 Subs Hosp L2
--- NOTE | 2018-12-01 10:53 | PCM.PN.CARD ---
Subjectve: The patient states that she is feeling better overall, however, she still has some abdominal discomfort/nausea. She denies ongoing acute chest discomfort or difficulty breathing at rest. Objective: Vital Signs Temp Pulse Resp BP Pulse Ox 97.8 F 69 16 122/59 H 98 12/01/18 04:00 12/01/18 10:42 12/01/18 10:00 12/01/18 10:00 12/01/18 10:00 Oxygen Flow Rate (L/min) 3 Oxygen Delivery Method Nasal Cannula Weight: 218 lb 7.649 oz Body Mass Index (BMI) 38.4 Finger Stick Blood Glucose 202 Intake and Output for Last 24 Hours 11/29/18 11/30/18 12/01/18 23:59 23:59 23:59 Intake Total 4625 / 4625 1643 / 1643 797 / 797 Output Total 1375 / 1375 2425 / 2425 250 / 250 Balance 3250 / 3250 -782 / -782 547 / 547 General: Awake, Alert, Oriented x 3, Cooperative, No Acute Distress HEENT: Atraumatic, Normocephalic, PERRL, EOMI, Sclera Non Icteric Oral: Moist Mucosa Neck: Supple, Good ROM, No JVD Lungs: Clear to auscultation Cardiovascular: Regular Rhythm, Normal S1, Normal S2 Abdomen: Bowel Sounds Present, Soft Psych/Mental Status: Appropriate 11/30/18 17:48: pH 7.38, Bicarbonate Actual 29.2 H, POC Total CO2 31, Base Excess 4 H, O2 Saturation 92 L, ABG pCO2 49.0 H, ABG pO2 65 L, Andrew Test NA 12/01/18 04:45: WBC 9.2, RBC 3.01 L, Hgb 7.7 L, Hct 25.4 L, MCV 84.4, MCH 25.6 L, MCHC 30.3 L, RDW 16.6 H, RDW Differential 49.2 H, Plt Count 311, MPV 9.8 12/01/18 04:45: Sodium 139, Potassium 3.6, Chloride 101, Carbon Dioxide 32.0, Anion Gap 6, BUN 14, Creatinine 0.58, Est GFR (MDRD) Af Amer 131, Est GFR (MDRD) Non-Af 109, BUN/Creatinine Ratio 24.2 H, Glucose 256 H, Calcium 8.3 L, Magnesium 1.7 Rhythm: Sinus rhythm Medical Necessity - Tobacco Use Smoking Status: Former smoker Tobacco Use: Non-smoker Assessment/Plan 1. Non-ST segment elevation MS There are concerns based on patient's previous cardiac enzymes that she experienced a non-ST segment elevation MS. She has been previously evaluated by Dr. Gracias including diagnostic cardiac catheterization. She does have underlying CAD. She was recommended for continued medical management at this time. At the present time she appears to be without acute ongoing chest discomfort. She will continue to be monitored. Her medications will be optimized as best as possible. This will include the addition of beta-juanita therapy as tolerated. Also, in light of her cardiovascular event and findings, it would be reasonable, noting her anemia, that she be considered for PRBCs to hopefully increase her oxygen carrying capacity which may benefit her cardiovascular status. 2. CAD The patient was found to have underlying CAD. At the present time she is being medically managed. When she is able from a surgical standpoint to initiate medical therapy with aspirin 81 mg a day this would be reasonable. In the meantime she can have nitrates as needed. She will be placed on beta-juanita therapy as tolerated. She will continue her lipid-lowering therapy. Again based upon her anemia would be reasonable to consider PRBCs to hopefully improve her oxygen carrying capacity. Over time consideration will be given as to how to proceed with her underlying CAD status. 3. Hypertension Her blood pressures are being followed. Her medicines will be adjusted as needed. 4. Anemia Her hemoglobin has dropped below 8. Again in light of her findings of CAD and a non-ST segment elevation MS noting that there are some limits on her medical therapy at this time with respect to antiplatelet therapy/anticoagulant therapy, etc. would be reasonable to consider PRBCs to increase her H&H to hopefully help her oxygen carrying capacity. Comment: The above was discussed and reviewed with the patient. She was agreeable to this approach. This note was generated with [employer] software. It may contain incorrect words, spelling, and punctuation that were not noted in checking the note before signing.
--- NOTE | 2018-12-01 10:57 | PN.CARD_ITS ---
Subjectve: The patient states that she is feeling better overall, however, she still has some abdominal discomfort/nausea. She denies ongoing acute chest discomfort or difficulty breathing at rest. Objective: Vital Signs Temp Pulse Resp BP Pulse Ox 97.8 F 69 16 122/59 H 98 12/01/18 04:00 12/01/18 10:42 12/01/18 10:00 12/01/18 10:00 12/01/18 10:00 Oxygen Flow Rate (L/min) 3 Oxygen Delivery Method Nasal Cannula Weight: 218 lb 7.649 oz Body Mass Index (BMI) 38.4 Finger Stick Blood Glucose 202 Intake and Output for Last 24 Hours 11/29/18 11/30/18 12/01/18 23:59 23:59 23:59 Intake Total 4625 / 4625 1643 / 1643 797 / 797 Output Total 1375 / 1375 2425 / 2425 250 / 250 Balance 3250 / 3250 -782 / -782 547 / 547 General: Awake, Alert, Oriented x 3, Cooperative, No Acute Distress HEENT: Atraumatic, Normocephalic, PERRL, EOMI, Sclera Non Icteric Oral: Moist Mucosa Neck: Supple, Good ROM, No JVD Lungs: Clear to auscultation Cardiovascular: Regular Rhythm, Normal S1, Normal S2 Abdomen: Bowel Sounds Present, Soft Psych/Mental Status: Appropriate 11/30/18 17:48: pH 7.38, Bicarbonate Actual 29.2 H, POC Total CO2 31, Base Excess 4 H, O2 Saturation 92 L, ABG pCO2 49.0 H, ABG pO2 65 L, Andrew Test NA 12/01/18 04:45: WBC 9.2, RBC 3.01 L, Hgb 7.7 L, Hct 25.4 L, MCV 84.4, MCH 25.6 L , MCHC 30.3 L, RDW 16.6 H, RDW Differential 49.2 H, Plt Count 311, MPV 9.8 12/01/18 04:45: Sodium 139, Potassium 3.6, Chloride 101, Carbon Dioxide 32.0, Anion Gap 6, BUN 14, Creatinine 0.58, Est GFR (MDRD) Af Amer 131, Est GFR (MDRD) Non-Af 109, BUN/Creatinine Ratio 24.2 H, Glucose 256 H, Calcium 8.3 L, Magnesium 1.7 Rhythm: Sinus rhythm Medical Necessity - Tobacco Use Smoking Status: Former smoker Tobacco Use: Non-smoker Assessment/Plan 1. Non-ST segment elevation [place] There are concerns based on patient's previous cardiac enzymes that she experienced a non-ST segment elevation [place]. She has been previously evaluated by Dr. Garcias including diagnostic cardiac catheterization. She does have underlying CAD. She was recommended for continued medical management at this time. At the present time she appears to be without acute ongoing chest discomfort. She will continue to be monitored. Her medications will be optimized as best as possible. This will include the addition of beta-juanita therapy as tolerated. Also, in light of her cardiovascular event and findings, it would be reasonable, noting her anemia, that she be considered for PRBCs to hopefully increase her oxygen carrying capacity which may benefit her cardiovascular status. 2. CAD The patient was found to have underlying CAD. At the present time she is being medically managed. When she is able from a surgical standpoint to initiate medical therapy with aspirin 81 mg a day this would be reasonable. In the meantime she can have nitrates as needed. She will be placed on beta-juanita therapy as tolerated. She will continue her lipid-lowering therapy. Again based upon her anemia would be reasonable to consider PRBCs to hopefully improve her oxygen carrying capacity. Over time consideration will be given as to how to proceed with her underlying CAD status. 3. Hypertension Her blood pressures are being followed. Her medicines will be adjusted as needed. 4. Anemia Her hemoglobin has dropped below 8. Again in light of her findings of CAD and a non-ST segment elevation W[place] noting that there are some limits on her medical therapy at this time with respect to antiplatelet therapy/anticoagulant therapy, etc. would be reasonable to consider PRBCs to increase her H&H to hopefully help her oxygen carrying capacity. Comment: The above was discussed and reviewed with the patient. She was agreeable to this approach. This note was generated with [employer] software. It may contain incorrect words, spelling, and punctuation that were not noted in checking the note before signing.
[2018-12-01 11:40] LABS: Bedside Glucose 245 mg/dL (70-110)
[2018-12-01] MEDS: Nystatin Powder 15gm Bottle 1 APPLIC TOPICAL ×2 (14:32→22:20)
[2018-12-01] MEDS: Furosemide 20 MG/2 ML VIAL IV (14:32)
[2018-12-01] MEDS: 0.9% NaCl Peripheral Flush Adult/Peds IV ×2 (14:32→14:34)
[2018-12-01 16:21] LABS: Bedside Glucose 272 mg/dL (70-110)
[2018-12-01] MEDS: Docusate Sodium 100 MG Capsule PO (22:17)
[2018-12-01] MEDS: Insulin Human 75/25 Kwickpen 20 UNIT SC (22:18)
[2018-12-01] MEDS: Atorvastatin Calcium 80 MG Tablet PO (22:18)
[2018-12-01] MEDS: Latanoprost 0.005% 1 Bottle 1 DRP OPHTHALMIC (22:20)
[2018-12-01] MEDS: Pramipexole Di-HCl 0.25 MG Tablet PO (22:20)
[2018-12-01] MEDS: Metoprolol Tartrate 25 MG Tablet PO (22:25)
[2018-12-01 23:10] LABS: Bedside Glucose 261 mg/dL (70-110)
[2018-12-02] VITALS (16 sets, daily range): BP systolic 117–132; BP diastolic 50–76; PULSE 56–74; RESP 16–18; TEMP 36.6–37.1; O2SAT 92–95
[2018-12-02] MEDS: Insulin Lispro 100 UNIT/ML INSULN.PEN SQ ×3 (00:41→21:57)
[2018-12-02 01:01] LABS: Bedside Glucose 212 mg/dL (70-110)
--- NOTE | 2018-12-02 03:44 | NURSING ---
While reviewing pt microbiology, noted that pt is positive for enterococcus gallinarum that is resistant to Vancomycin. Per [facility] policy, pt placed in contact isolation.
[2018-12-02 06:12] LABS: Absolute Lymphocyte Count 1.44 X10^3/ul (0.83-4.51); Absolute Neutrophil Count 5.6 X10^3/uL (2.0-7.7); Basophil# 0.02 X10^3/uL; Basophil% 0.2 % (0-1); Eosinophil# 0.41 X10^3/uL; Hematocrit 28.1 % (37-47); Hemoglobin 8.6 g/dl (12.0-15.0); Lymphocyte # 1.44 X10^3/ul (4.0); Lymphocyte % 17.6 % (19-41); Mean Corp Hgb Conc 30.6 g/gl (32-36); Mean Corpuscular Hgb 25.3 pg (27.0-32.0); Mean Corpuscular Volume 82.6 fL (81-99); Mean Platelet Vol. 9.5 fl (6.2-12.0); Monocyte# 0.66 X10^3/uL; Monocyte% 8.1 % (0-10); Neutrophil # 5.62 X10^3/uL (2.7-7.7); Neutrophil % 68.9 % (47-70); Platelet Count 292 K/mm3 (150-450); RBC Distribution Width CV 17.3 % (11.6-14.6); RBC Distribution Width SD 51.9 fl (35.1-43.9); White Blood Count 8.2 K/mm3 (4.4-11.0)
[2018-12-02 06:19] LABS: POSITIVE COUNT NO; POSITIVE DIFFERENTIAL NO; POSITIVE MORPHOLOGY NO
[2018-12-02] MEDS: oxyCODONE 5 MG Tablet 10 MG PO ×3 (06:23→23:49)
[2018-12-02] MEDS: 0.9% NaCl Peripheral Flush Adult/Peds IV ×2 (06:25→14:21)
[2018-12-02] MEDS: Ipratropium/Albuterol Sulfate 3 ML AMPUL.NEB INHALATION ×3 (06:44→19:25)
[2018-12-02] MEDS: Budesonide Respules 0.5 MG/2 ML AMPUL.NEB. INHALATION ×2 (06:46→19:25)
[2018-12-02 06:56] LABS: Anion Gap 7 (5-15); BUN 8 mg/dL (7-18); BUN/Creat Ratio 18.1 RATIO (10-20); Chloride 99 mmol/L (98-107); Creatinine, Serum 0.44 mg/dL (0.55-1.02); EST Glomerular Filtration Rate 148 mL/min (>60); Est Glom Filt Rate - Afr Amer 179 mL/min (>60); Estimated Creatinine Clearance 40.22 ml/min; Glucose 144 mg/dL (74-106); Potassium 3.4 mmol/L (3.5-5.1); Sodium Level 136 mmol/L (136-145)
--- NOTE | 2018-12-02 07:45 | PN_ITS ---
Patient Problems: Active and Suspected Problems (Last Reviewed 11/27/18 @ 15:09 by Eula Tirado PA-C) Elevated troponin (Acute) Subjective: Chief complaint: Follow-up after consultation for postoperative medical management. Patient seen and examined. No acute events overnight. This morning, she complains of abdominal pain mainly upon coughing. Denies nausea or vomiting. She is tolerating clear liquid diet. Denies chest pain or shortness of breath. Her vital signs are stable. - Physical Exam General: Alert, Oriented x3, Cooperative, No apparent distress HEENT: Atraumatic, PERRLA, EOMI, Normocephalic Oral: Moist Mucosa, No Gingival or Mucosal Lesions/ Ulcerations Neck: Supple, No JVD, Negative Carotid Bruits, Trachea Midline, Thyroid Normal Size and Texture Lungs: Clear to auscultation, No rhonchi, No wheeze, No rales, Diminished Cardiovascular: Regular rate, Regular Rhythm, Normal S1, Normal S2, PMI Normal Abdomen: Bowel Sounds Present, Soft, Non Tender, Non-Distended, No Hepato- splenomegaly, - - Colostomy bag in place. Extremities: No clubbing, No cyanosis, No edema Skin: No rashes, Ulcer/ Wound Lymphatic: No Cervical, Supraclavicular, or Inguinal Adenopathy Neurological: Cranial nerves II-XII grossly intact, Neuro grossly intact Psych/Mental Status: Normal Affect, Appropriate, Alert and oriented to time, place, person, mood and affect Vital Signs Temp Pulse Resp BP Pulse Ox 97.9 F 64 16 128/76 H 95 12/02/18 04:21 12/02/18 06:47 12/02/18 06:47 12/02/18 04:21 12/02/18 06:47 Oxygen Flow Rate (L/min) 3 Oxygen Delivery Method Nasal Cannula Weight: 226 lb 3.108 oz Body Mass Index (BMI) 38.4 Finger Stick Blood Glucose 202 Intake and Output for Last 24 Hours 11/30/18 12/01/18 12/02/18 23:59 23:59 23:59 Intake Total 1643 / 1643 3650 / 3650 232 / 232 Output Total 2425 / 2425 1400 / 1400 140 / 140 Balance -782 / -782 2250 / 2250 92 / 92 Microbiology Past 72 Hours 11/29/18 17:22 Stool Occult Blood (REENA) - Final Stool Laboratory Tests Past 24 Hrs 11/23/18 12/01/18 12/02/18 11:35 10:33 04:56 WBC 8.2 RBC 3.40 L Hgb 8.6 L Hct 28.1 L MCV 82.6 MCH 25.3 L MCHC 30.6 L RDW 17.3 H RDW Differential 51.9 H Plt Count 292 MPV 9.5 Immature Gran % (Auto) 0.200 Neut % (Auto) 68.9 Lymph % (Auto) 17.6 L [place] % (Auto) 8.1 Eos % (Auto) 5.0 Baso % (Auto) 0.2 Absolute Neuts (auto) 5.6 Absolute Lymphs (auto) 1.44 Total Counted Not Reportable Sodium Potassium Chloride Carbon Dioxide Anion Gap BUN Creatinine Estim Creat Clear Calc Est GFR (MDRD) Af Amer Est GFR (MDRD) Non-Af BUN/Creatinine Ratio Glucose Calcium Blood Type A POSITIVE Antibody Screen NEGATIVE Crossmatch See Detail See Detail 12/02/18 04:56 WBC RBC Hgb Hct MCV MCH MCHC RDW RDW Differential Plt Count MPV Immature Gran % (Auto) Neut % (Auto) Lymph % (Auto) [place] % (Auto) Eos % (Auto) Baso % (Auto) Absolute Neuts (auto) Absolute Lymphs (auto) Total Counted Sodium 136 Potassium 3.4 L Chloride 99 Carbon Dioxide 30.0 Anion Gap 7 BUN 8 Creatinine 0.44 L Estim Creat Clear Calc 40.22 Est GFR (MDRD) Af Amer 179 Est GFR (MDRD) Non-Af 148 BUN/Creatinine Ratio 18.1 Glucose 144 H Calcium 8.0 L Blood Type Antibody Screen Crossmatch POC Glucose 12/02/18 12/01/18 12/01/18 00:38 22:16 16:16 POC Glucose 212 H 261 H 272 H 12/01/18 11:31 POC Glucose 245 H Medical Necessity - Tobacco Use Smoking Status: Former smoker Tobacco Use: Non-smoker Assessment/Plan All Active Problems (Last Reviewed 11/27/18 @ 15:09 by Eula Tirado PA-C) Open wound of sacroiliac region with complication (Acute) Open wound of buttock (Acute) Elevated troponin (Acute) This is a 73 years old female patient underwent extensive excision of bilateral perianal hidradenitis and extensive excision of complicated pilonidal cyst/abscess and her postoperative course complicated by acute non-ST elevation [place] and acute on chronic anemia requiring blood transfusion. She underwent diversion sigmoid colostomy for open sacral wound with complications. #1 Polymicrobial bilateral perianal hidradenitis/complicated pilonidal cyst/abscess: Status post extensive excision, postoperative day 10. She is on IV Unasyn. Her vital signs are stable, afebrile. Wound culture revealed staph epidermidis, enterococcus and anaerobic cocci. Infectious disease on the case, managing antibiotics. Plastic surgery on the case as well, managing. Plan to continue same treatment, advanced diet according to general surgery recommendations. #2 status post diversion sigmoid colostomy: This was done because of open sacral wound with complications, infected, postoperative day 2. She is tolerating clear liquids. Complaining of abdominal pain mainly upon coughing. General surgery on the case. Plan as above. #2 acute hypercapnic respiratory failure: After her first surgery on November 22, 2018, patient needed intubation and mechanical ventilation, status post extubation several days ago. Respiratory status stable, maintaining pulse ox on 3 L of oxygen which is her baseline at home. #3 Elevated troponin/probable acute non-ST elevation [place]: Attributed to transient hypotension postoperatively in the ER. She had a stress test done that was abnormal and demonstrated post stress myocardial perfusion changes concerning for area of stress-induced ischemia. She underwent cardiac catheterization that revealed mild luminal irregularities of the left main artery, 70% stenosis of the LAD, results of the left circumflex, 100% stenosis of the mid RCA with collaterals. Decision was made for medical treatment. 2D echocardiogram revealed ejection fraction 55%, segmental wall dysfunction. Stable, continue statins, losartan. #4 acute on chronic iron deficiency anemia: She received 1 unit of packed RBCs yesterday for hemoglobin of 7.7 g/dL. Today's hemoglobin is 8.6 g/dL. Stool for occult blood was negative. #5 type 2 diabetes mellitus: Blood sugar stable, continue sliding scale, keep holding metformin. #6 hypertension: Blood pressure stable, continue losartan, continue Lasix. #7 hypothyroidism: Continue levothyroxine. #8 COPD/chronic respiratory failure: She is on home oxygen at 3 L. At this time, pulse ox is maintained on 3 L, stable. #9 DVT prophylaxis: SCDs. This note was generated with [employer] software. It may contain incorrect words, spelling, and punctuation that were not noted in checking the note before signing. Code Visit Inpatient E&M: 77027 Subs Hosp L2
--- NOTE | 2018-12-02 07:47 | PCM.PN.SRG ---
Patient Problems: Active and Suspected Problems (Last Reviewed 11/27/18 @ 15:09 by Eula Tirado PA-C) Elevated troponin (Acute) Subjective: Patient on clears however states she was nauseated overnight now only taking sips and chips, no gas out of the colostomy bag only a small amount of serosanguineous fluid - Physical Exam General: Alert, Oriented x3, Cooperative, No apparent distress Cardiovascular: Regular rate Abdomen: Soft, Non-Distended, Tender - Mild near incision, no peritoneal signs, - - Colostomy pink no flatus in the bag only a small amount of serosanguineous fluid Vital Signs Temp Pulse Resp BP Pulse Ox 97.9 F 64 16 128/76 H 95 12/02/18 04:21 12/02/18 06:47 12/02/18 06:47 12/02/18 04:21 12/02/18 06:47 Oxygen Flow Rate (L/min) 3 Oxygen Delivery Method Nasal Cannula Weight: 226 lb 3.108 oz Body Mass Index (BMI) 38.4 Finger Stick Blood Glucose 202 Intake and Output for Last 24 Hours 11/30/18 12/01/18 12/02/18 23:59 23:59 23:59 Intake Total 1643 / 1643 3650 / 3650 232 / 232 Output Total 2425 / 2425 1400 / 1400 140 / 140 Balance -782 / -782 2250 / 2250 92 / 92 Microbiology Past 72 Hours 11/29/18 17:22 Stool Occult Blood (REENA) - Final Stool Laboratory Tests Past 24 Hrs 11/23/18 12/01/18 12/02/18 11:35 10:33 04:56 WBC 8.2 RBC 3.40 L Hgb 8.6 L Hct 28.1 L MCV 82.6 MCH 25.3 L MCHC 30.6 L RDW 17.3 H RDW Differential 51.9 H Plt Count 292 MPV 9.5 Immature Gran % (Auto) 0.200 Neut % (Auto) 68.9 Lymph % (Auto) 17.6 L [place] % (Auto) 8.1 Eos % (Auto) 5.0 Baso % (Auto) 0.2 Absolute Neuts (auto) 5.6 Absolute Lymphs (auto) 1.44 Total Counted Not Reportable Sodium Potassium Chloride Carbon Dioxide Anion Gap BUN Creatinine Estim Creat Clear Calc Est GFR (MDRD) Af Amer Est GFR (MDRD) Non-Af BUN/Creatinine Ratio Glucose Calcium Blood Type A POSITIVE Antibody Screen NEGATIVE Crossmatch See Detail See Detail 12/02/18 04:56 WBC RBC Hgb Hct MCV MCH MCHC RDW RDW Differential Plt Count MPV Immature Gran % (Auto) Neut % (Auto) Lymph % (Auto) [place] % (Auto) Eos % (Auto) Baso % (Auto) Absolute Neuts (auto) Absolute Lymphs (auto) Total Counted Sodium 136 Potassium 3.4 L Chloride 99 Carbon Dioxide 30.0 Anion Gap 7 BUN 8 Creatinine 0.44 L Estim Creat Clear Calc 40.22 Est GFR (MDRD) Af Amer 179 Est GFR (MDRD) Non-Af 148 BUN/Creatinine Ratio 18.1 Glucose 144 H Calcium 8.0 L Blood Type Antibody Screen Crossmatch POC Glucose 12/02/18 12/01/18 12/01/18 00:38 22:16 16:16 POC Glucose 212 H 261 H 272 H 12/01/18 11:31 POC Glucose 245 H Medical Necessity - Tobacco Use Smoking Status: Former smoker Tobacco Use: Non-smoker Assessment/Plan All Active Problems (Last Reviewed 11/27/18 @ 15:09 by Eula Tirado PA-C) Open wound of sacroiliac region with complication (Acute) Open wound of buttock (Acute) Elevated troponin (Acute) 73-year-old female status post gluteal debridement and postop day 2 from diverting colostomy 1. Continue clears, await stoma function then okay to advance as tolerated. Amada Abdi M.D. Pager: [phone] [facility] [address] [place] [address], [facility], [address] [place] [address] Office: [phone]
--- NOTE | 2018-12-02 07:51 | PN.SURG_ITS ---
Patient Problems: Active and Suspected Problems (Last Reviewed 11/27/18 @ 15:09 by Eula Tirado PA-C) Elevated troponin (Acute) Subjective: Patient on clears however states she was nauseated overnight now only taking sips and chips, no gas out of the colostomy bag only a small amount of serosanguineous fluid - Physical Exam General: Alert, Oriented x3, Cooperative, No apparent distress Cardiovascular: Regular rate Abdomen: Soft, Non-Distended, Tender - Mild near incision, no peritoneal signs, - - Colostomy pink no flatus in the bag only a small amount of serosanguineous fluid Vital Signs Temp Pulse Resp BP Pulse Ox 97.9 F 64 16 128/76 H 95 12/02/18 04:21 12/02/18 06:47 12/02/18 06:47 12/02/18 04:21 12/02/18 06:47 Oxygen Flow Rate (L/min) 3 Oxygen Delivery Method Nasal Cannula Weight: 226 lb 3.108 oz Body Mass Index (BMI) 38.4 Finger Stick Blood Glucose 202 Intake and Output for Last 24 Hours 11/30/18 12/01/18 12/02/18 23:59 23:59 23:59 Intake Total 1643 / 1643 3650 / 3650 232 / 232 Output Total 2425 / 2425 1400 / 1400 140 / 140 Balance -782 / -782 2250 / 2250 92 / 92 Microbiology Past 72 Hours 11/29/18 17:22 Stool Occult Blood (REENA) - Final Stool Laboratory Tests Past 24 Hrs 11/23/18 12/01/18 12/02/18 11:35 10:33 04:56 WBC 8.2 RBC 3.40 L Hgb 8.6 L Hct 28.1 L MCV 82.6 MCH 25.3 L MCHC 30.6 L RDW 17.3 H RDW Differential 51.9 H Plt Count 292 MPV 9.5 Immature Gran % (Auto) 0.200 Neut % (Auto) 68.9 Lymph % (Auto) 17.6 L [place] % (Auto) 8.1 Eos % (Auto) 5.0 Baso % (Auto) 0.2 Absolute Neuts (auto) 5.6 Absolute Lymphs (auto) 1.44 Total Counted Not Reportable Sodium Potassium Chloride Carbon Dioxide Anion Gap BUN Creatinine Estim Creat Clear Calc Est GFR (MDRD) Af Amer Est GFR (MDRD) Non-Af BUN/Creatinine Ratio Glucose Calcium Blood Type A POSITIVE Antibody Screen NEGATIVE Crossmatch See Detail See Detail 12/02/18 04:56 WBC RBC Hgb Hct MCV MCH MCHC RDW RDW Differential Plt Count MPV Immature Gran % (Auto) Neut % (Auto) Lymph % (Auto) [place] % (Auto) Eos % (Auto) Baso % (Auto) Absolute Neuts (auto) Absolute Lymphs (auto) Total Counted Sodium 136 Potassium 3.4 L Chloride 99 Carbon Dioxide 30.0 Anion Gap 7 BUN 8 Creatinine 0.44 L Estim Creat Clear Calc 40.22 Est GFR (MDRD) Af Amer 179 Est GFR (MDRD) Non-Af 148 BUN/Creatinine Ratio 18.1 Glucose 144 H Calcium 8.0 L Blood Type Antibody Screen Crossmatch POC Glucose 12/02/18 12/01/18 12/01/18 00:38 22:16 16:16 POC Glucose 212 H 261 H 272 H 12/01/18 11:31 POC Glucose 245 H Medical Necessity - Tobacco Use Smoking Status: Former smoker Tobacco Use: Non-smoker Assessment/Plan All Active Problems (Last Reviewed 11/27/18 @ 15:09 by Eula Tirado PA-C) Open wound of sacroiliac region with complication (Acute) Open wound of buttock (Acute) Elevated troponin (Acute) 73-year-old female status post gluteal debridement and postop day 2 from diverting colostomy 1. Continue clears, await stoma function then okay to advance as tolerated. Amada Abdi M.D. Pager: [phone] [facility] [address] [place] [address], [facility], [address] [place] [address] Office: [phone]
[2018-12-02] MEDS: Citalopram 20 MG Tablet PO (09:47)
[2018-12-02] MEDS: Losartan Potassium 25 MG Tablet PO (09:47)
[2018-12-02] MEDS: Furosemide 40 MG Tablet PO (09:47)
[2018-12-02] MEDS: Fenofibrate 48 MG Tablet PO (09:47)
[2018-12-02] MEDS: Docusate Sodium 100 MG Capsule PO ×2 (09:47→21:56)
[2018-12-02] MEDS: Iron Polysaccharide Complex 150 MG CAPSULE PO (09:47)
[2018-12-02] MEDS: Insulin Human 75/25 Kwickpen 20 UNIT SC ×2 (09:48→22:15)
[2018-12-02] MEDS: DiphenhydrAMINE 25 MG Capsule PO (09:48)
[2018-12-02] MEDS: Metoprolol Tartrate 25 MG Tablet PO ×2 (09:48→22:00)
[2018-12-02] MEDS: Nystatin Powder 15gm Bottle 1 APPLIC TOPICAL ×2 (09:51→22:00)
[2018-12-02 10:36] LABS: Bedside Glucose 134 mg/dL (70-110)
[2018-12-02 10:46] LABS: Bedside Glucose 187 mg/dL (70-110)
--- NOTE | 2018-12-02 11:09 | PN.SURG_ITS ---
Patient Problems: Active and Suspected Problems (Last Reviewed 11/27/18 @ 15:09 by Eula Tirado PA-C) Elevated troponin (Acute) Subjective: Postop #10 Patient is resting comfortably. - Physical Exam General: Alert, Oriented x3 HEENT: PERRLA, EOMI Oral: Moist Mucosa Neck: Supple Skin: Ulcer/ Wound - bilateral perianal wound and sacral wound is stable. No active bleeding seen. Redressed with Aquacel Silver and moistened kerlix gauze. Neurological: Cranial nerves II-XII grossly intact Psych/Mental Status: Normal Affect, Appropriate Vital Signs Temp Pulse Resp BP Pulse Ox 98.7 F 68 18 117/53 L 92 12/02/18 10:05 12/02/18 10:05 12/02/18 10:05 12/02/18 10:05 12/02/18 10:05 Oxygen Flow Rate (L/min) 3 Oxygen Delivery Method Nasal Cannula Weight: 226 lb 3.108 oz Body Mass Index (BMI) 38.4 Finger Stick Blood Glucose 202 Intake and Output for Last 24 Hours 11/30/18 12/01/18 12/02/18 23:59 23:59 23:59 Intake Total 1643 / 1643 3650 / 3650 232 / 232 Output Total 2425 / 2425 1400 / 1400 140 / 140 Balance -782 / -782 2250 / 2250 92 / 92 Microbiology Past 72 Hours 11/29/18 17:22 Stool Occult Blood (REENA) - Final Stool Laboratory Tests Past 24 Hrs 11/23/18 12/01/18 12/02/18 11:35 10:33 04:56 WBC 8.2 RBC 3.40 L Hgb 8.6 L Hct 28.1 L MCV 82.6 MCH 25.3 L MCHC 30.6 L RDW 17.3 H RDW Differential 51.9 H Plt Count 292 MPV 9.5 Immature Gran % (Auto) 0.200 Neut % (Auto) 68.9 Lymph % (Auto) 17.[address] [place] % (Auto) 8.1 Eos % (Auto) 5.0 Baso % (Auto) 0.2 Absolute Neuts (auto) 5.6 Absolute Lymphs (auto) 1.44 Total Counted Not Reportable Sodium Potassium Chloride Carbon Dioxide Anion Gap BUN Creatinine Estim Creat Clear Calc Est GFR (MDRD) Af Amer Est GFR (MDRD) Non-Af BUN/Creatinine Ratio Glucose Calcium Blood Type A POSITIVE Antibody Screen NEGATIVE Crossmatch See Detail See Detail 12/02/18 04:56 WBC RBC Hgb Hct MCV MCH MCHC RDW RDW Differential Plt Count MPV Immature Gran % (Auto) Neut % (Auto) Lymph % (Auto) [place] % (Auto) Eos % (Auto) Baso % (Auto) Absolute Neuts (auto) Absolute Lymphs (auto) Total Counted Sodium 136 Potassium 3.4 L Chloride 99 Carbon Dioxide 30.0 Anion Gap 7 BUN 8 Creatinine 0.44 L Estim Creat Clear Calc 40.22 Est GFR (MDRD) Af Amer 179 Est GFR (MDRD) Non-Af 148 BUN/Creatinine Ratio 18.1 Glucose 144 H Calcium 8.0 L Blood Type Antibody Screen Crossmatch POC Glucose 12/02/18 12/02/18 12/02/18 10:38 06:22 00:38 POC Glucose 187 H 134 H 212 H 12/01/18 12/01/18 12/01/18 22:16 16:16 11:31 POC Glucose 261 H 272 H 245 H Medical Necessity - Tobacco Use Smoking Status: Former smoker Tobacco Use: Non-smoker Assessment/Plan All Active Problems (Last Reviewed 11/27/18 @ 15:09 by Eula Tirado PA-C) Open wound of sacroiliac region with complication (Acute) Open wound of buttock (Acute) Elevated troponin (Acute) 1. Hidradenitis bilateral perianal areas. 2. Extensive, complicated pilonidal cyst abscess. 3. Former smoker. 4. s/p surgical preparation bilateral perianal areas with excision hidradenitis (162.5 cm2) and excision extensive, complicated pilonidal cyst abscess (75 cm2). 5. Anemia of chronic disease, acute on chronic. 6. s/p diverting colostomy. Wound was re-dressed with Aquacel Silver today. Operative culture showed Staphylococcus epidermidis and Enterococcus gallinarum and Anaerobic cocci. Continue the Unasyn. Infectious Diseases involved with antibiotic management. Prealbumin was 13.7. Encourage nutritional supplementation with protein to help the healing process. Hgb increased to 8.6 from 7.7 after PRBC. She has anemia of chronic disease, acute on chronic. Had 250 ml of operative blood loss from the debridement. There was not much blood loss from the colostomy. Also some IV dilution. Continue iron supplementation. She had her stress test and angiogram. She has some blockages that can be treated with medication at this time. Recommend she go to an ECF at discharge. ECF evaluation in process.
--- NOTE | 2018-12-02 12:43 | PCM.PN.CARD ---
Subjectve: The patient is now in the PCU. She denies any ongoing chest discomfort or acute respiratory issues. She states she has now scheduled for an upcoming wound VAC procedure to be performed tomorrow. Objective: Vital Signs Temp Pulse Resp BP Pulse Ox 98.7 F 60 18 117/53 L 92 12/02/18 10:05 12/02/18 12:00 12/02/18 10:05 12/02/18 10:05 12/02/18 10:05 Oxygen Flow Rate (L/min) 3 Oxygen Delivery Method Nasal Cannula Weight: 226 lb 3.108 oz Body Mass Index (BMI) 38.4 Finger Stick Blood Glucose 202 Intake and Output for Last 24 Hours 11/30/18 12/01/18 12/02/18 23:59 23:59 23:59 Intake Total 1643 / 1643 3650 / 3650 232 / 232 Output Total 2425 / 2425 1400 / 1400 140 / 140 Balance -782 / -782 2250 / 2250 92 / 92 General: Awake, Alert, Oriented x 3, Cooperative, No Acute Distress HEENT: Atraumatic, Normocephalic, PERRL, EOMI, Sclera Non Icteric Oral: Moist Mucosa Neck: Supple, Good ROM, No JVD Lungs: Clear to auscultation Cardiovascular: Regular Rhythm, Normal S1, Normal S2 Extremities: Trace RLE Edema, Trace LLE Edema Psych/Mental Status: Appropriate 12/02/18 04:56: WBC 8.2, RBC 3.40 L, Hgb 8.6 L, Hct 28.1 L, MCV 82.6, MCH 25.3 L, MCHC 30.6 L, RDW 17.3 H, RDW Differential 51.9 H, Plt Count 292, MPV 9.5, Immature Gran % (Auto) 0.200, Neut % (Auto) 68.9, Lymph % (Auto) 17.6 L, Iron % (Auto) 8.1, Eos % (Auto) 5.0, Baso % (Auto) 0.2, Absolute Neuts (auto) 5.6, Total Counted Not Reportable 12/02/18 04:56: Sodium 136, Potassium 3.4 L, Chloride 99, Carbon Dioxide 30.0, Anion Gap 7, BUN 8, Creatinine 0.44 L, Est GFR (MDRD) Af Amer 179, Est GFR (MDRD) Non-Af 148, BUN/Creatinine Ratio 18.1, Glucose 144 H, Calcium 8.0 L Rhythm: Sinus rhythm Medical Necessity - Tobacco Use Smoking Status: Former smoker Tobacco Use: Non-smoker Assessment/Plan 1. Non-ST segment elevation [place] There are concerns based on patient's previous cardiac enzymes that she experienced a non-ST segment elevation [place]. She has been previously evaluated by Dr. Garcias including diagnostic cardiac catheterization. She does have underlying CAD. She was recommended for continued medical management at this time. At the present time she appears to be without acute ongoing chest discomfort. She will continue to be monitored. Her medications will be optimized as best as possible. This will include the addition of beta-juanita therapy as tolerated. She is also received 1 unit of PRBCs. Her H&H has improved. Hopefully this will help her oxygen carrying capacity. 2. CAD The patient was found to have underlying CAD. At the present time she is being medically managed. When she is able from a surgical standpoint to initiate medical therapy with aspirin 81 mg a day this would be reasonable. In the meantime she can have nitrates as needed. She will be placed on beta-juanita therapy as tolerated. She will continue her lipid-lowering therapy. Over time consideration will be given as to how to proceed with her underlying CAD status. 3. Hypertension Her blood pressures are being followed. Her medicines will be adjusted as needed. 4. Anemia Her H&H has improved status post 1 unit of PRBCs. Would not be unreasonable, depending upon her future H&H levels, especially if the decline, that she receive additional PRBCs. Comment: The above was discussed and reviewed with the patient and her spouse. She was agreeable to this approach. This note was generated with [employer] software. It may contain incorrect words, spelling, and punctuation that were not noted in checking the note before signing.
--- NOTE | 2018-12-02 12:46 | PN.CARD_ITS ---
Subjectve: The patient is now in the PCU. She denies any ongoing chest discomfort or acute respiratory issues. She states she has now scheduled for an upcoming wound VAC procedure to be performed tomorrow. Objective: Vital Signs Temp Pulse Resp BP Pulse Ox 98.7 F 60 18 117/53 L 92 12/02/18 10:05 12/02/18 12:00 12/02/18 10:05 12/02/18 10:05 12/02/18 10:05 Oxygen Flow Rate (L/min) 3 Oxygen Delivery Method Nasal Cannula Weight: 226 lb 3.108 oz Body Mass Index (BMI) 38.4 Finger Stick Blood Glucose 202 Intake and Output for Last 24 Hours 11/30/18 12/01/18 12/02/18 23:59 23:59 23:59 Intake Total 1643 / 1643 3650 / 3650 232 / 232 Output Total 2425 / 2425 1400 / 1400 140 / 140 Balance -782 / -782 2250 / 2250 92 / 92 General: Awake, Alert, Oriented x 3, Cooperative, No Acute Distress HEENT: Atraumatic, Normocephalic, PERRL, EOMI, Sclera Non Icteric Oral: Moist Mucosa Neck: Supple, Good ROM, No JVD Lungs: Clear to auscultation Cardiovascular: Regular Rhythm, Normal S1, Normal S2 Extremities: Trace RLE Edema, Trace LLE Edema Psych/Mental Status: Appropriate 12/02/18 04:56: WBC 8.2, RBC 3.40 L, Hgb 8.6 L, Hct 28.1 L, MCV 82.6, MCH 25.3 L , MCHC 30.6 L, RDW 17.3 H, RDW Differential 51.9 H, Plt Count 292, MPV 9.5, Immature Gran % (Auto) 0.200, Neut % (Auto) 68.9, Lymph % (Auto) 17.6 L, [place] % (Auto) 8.1, Eos % (Auto) 5.0, Baso % (Auto) 0.2, Absolute Neuts (auto) 5.6, Total Counted Not Reportable 12/02/18 04:56: Sodium 136, Potassium 3.4 L, Chloride 99, Carbon Dioxide 30.0, Anion Gap 7, BUN 8, Creatinine 0.44 L, Est GFR (MDRD) Af Amer 179, Est GFR (MDRD) Non-Af 148, BUN/Creatinine Ratio 18.1, Glucose 144 H, Calcium 8.0 L Rhythm: Sinus rhythm Medical Necessity - Tobacco Use Smoking Status: Former smoker Tobacco Use: Non-smoker Assessment/Plan 1. Non-ST segment elevation [place] There are concerns based on patient's previous cardiac enzymes that she experienced a non-ST segment elevation [place]. She has been previously evaluated by Dr. Garcias including diagnostic cardiac catheterization. She does have underlying CAD. She was recommended for continued medical management at this time. At the present time she appears to be without acute ongoing chest discomfort. She will continue to be monitored. Her medications will be optimized as best as possible. This will include the addition of beta-juanita therapy as tolerated. She is also received 1 unit of PRBCs. Her H&H has improved. Hopefully this will help her oxygen carrying capacity. 2. CAD The patient was found to have underlying CAD. At the present time she is being medically managed. When she is able from a surgical standpoint to initiate medical therapy with aspirin 81 mg a day this would be reasonable. In the meantime she can have nitrates as needed. She will be placed on beta-juanita therapy as tolerated. She will continue her lipid-lowering therapy. Over time consideration will be given as to how to proceed with her underlying CAD status. 3. Hypertension Her blood pressures are being followed. Her medicines will be adjusted as needed. 4. Anemia Her H&H has improved status post 1 unit of PRBCs. Would not be unreasonable, depending upon her future H&H levels, especially if the decline, that she receive additional PRBCs. Comment: The above was discussed and reviewed with the patient and her spouse. She was agreeable to this approach. This note was generated with [employer] software. It may contain incorrect words, spelling, and punctuation that were not noted in checking the note before signing.
[2018-12-02] MEDS: Ondansetron 4 MG/2 ML Vial IV (14:21)
[2018-12-02 16:41] LABS: Bedside Glucose 122 mg/dL (70-110)
[2018-12-02] MEDS: Glucerna Shake 120 ML LIQUID PO ×2 (17:19→21:57)
[2018-12-02] MEDS: Atorvastatin Calcium 80 MG Tablet PO (21:59)
[2018-12-02] MEDS: Pramipexole Di-HCl 0.25 MG Tablet PO (22:00)
[2018-12-02] MEDS: Latanoprost 0.005% 1 Bottle 1 DRP OPHTHALMIC (22:01)
[2018-12-03] VITALS (8 sets, daily range): BP systolic 96–136; BP diastolic 57–64; PULSE 55–64; RESP 16–17; TEMP 36.7–36.9; O2SAT 91–95
[2018-12-03 01:21] LABS: Bedside Glucose 152 mg/dL (70-110)
[2018-12-03 04:46] LABS: Bedside Glucose 130 mg/dL (70-110)
[2018-12-03] MEDS: Levothyroxine 175 MCG Tablet PO (06:28)
[2018-12-03 06:51] LABS: Bedside Glucose 122 mg/dL (70-110)
[2018-12-03] MEDS: Ipratropium/Albuterol Sulfate 3 ML AMPUL.NEB INHALATION (06:57)
[2018-12-03] MEDS: Budesonide Respules 0.5 MG/2 ML AMPUL.NEB. INHALATION (06:58)
[2018-12-03 07:09] LABS: Anion Gap 7 (5-15); BUN 7 mg/dL (7-18); BUN/Creat Ratio 9.8 RATIO (10-20); Calcium,Total 7.9 mg/dL (8.5-10.1); Chloride 109 mmol/L (98-107); Creatinine, Serum 0.72 mg/dL (0.55-1.02); EST Glomerular Filtration Rate 85 mL/min (>60); Est Glom Filt Rate - Afr Amer 103 mL/min (>60); Estimated Creatinine Clearance 40.22 ml/min; Glucose 117 mg/dL (74-106); Potassium 3.4 mmol/L (3.5-5.1); Sodium Level 141 mmol/L (136-145)
[2018-12-03] MEDS: Iron Polysaccharide Complex 150 MG CAPSULE PO (08:08)
[2018-12-03] MEDS: Citalopram 20 MG Tablet PO (08:08)
[2018-12-03] MEDS: Docusate Sodium 100 MG Capsule PO (08:09)
[2018-12-03] MEDS: Glucerna Shake 120 ML LIQUID PO (08:09)
[2018-12-03] MEDS: Losartan Potassium 25 MG Tablet PO (08:09)
[2018-12-03] MEDS: Nystatin Powder 15gm Bottle 1 APPLIC TOPICAL (08:10)
[2018-12-03] MEDS: Metoprolol Tartrate 25 MG Tablet PO (08:10)
[2018-12-03] MEDS: Furosemide 40 MG Tablet PO (08:10)
[2018-12-03] MEDS: Insulin Human 75/25 Kwickpen 20 UNIT SC (08:10)
[2018-12-03] MEDS: Fenofibrate 48 MG Tablet PO (08:11)
[2018-12-03] MEDS: oxyCODONE 5 MG Tablet 10 MG PO (09:25)
[2018-12-03] MEDS: Ondansetron 4 MG/2 ML Vial IV (09:26)
--- NOTE | 2018-12-03 10:02 | PCM.PN.SRG ---
Patient Problems: Active and Suspected Problems (Last Reviewed 11/27/18 @ 15:09 by Eula Tirado PA-C) Elevated troponin (Acute) Subjective: Patient evaluated resting comfortably in bed. She notes tenderness around the colostomy. She denies nausea, vomiting. She is tolerating regular food well. She denies seeing air in her bag. She notes stool sediment in the bag. - Physical Exam General: Alert, Oriented x3, Cooperative Abdomen: Bowel Sounds Present, Obese, Tender - slightly tender, - - Colostomy intact. Healthy pink stoma. Minimal amount of black stool sediment within the bag. Vital Signs Temp Pulse Resp BP Pulse Ox 98.4 F 56 L 16 136/57 H 92 12/03/18 09:20 12/03/18 09:20 12/03/18 09:20 12/03/18 09:20 12/03/18 09:20 Oxygen Flow Rate (L/min) 3 Oxygen Delivery Method Nasal Cannula Weight: 227 lb 11.8 oz Body Mass Index (BMI) 38.4 Finger Stick Blood Glucose 202 Intake and Output for Last 24 Hours 12/01/18 12/02/18 12/03/18 23:59 23:59 23:59 Intake Total 3650 / 3650 2486 / 2486 39.8 / 39.8 Output Total 1400 / 1400 2345 / 2345 340 / 340 Balance 2250 / 2250 141 / 141 -300.2 / -300.2 Laboratory Tests Past 24 Hrs 12/03/18 05:25 Sodium 141 Potassium 3.4 L Chloride 109 H Carbon Dioxide 25.0 Anion Gap 7 BUN 7 Creatinine 0.72 Estim Creat Clear Calc 40.22 Est GFR (MDRD) Af Amer 103 Est GFR (MDRD) Non-Af 85 BUN/Creatinine Ratio 9.8 L Glucose 117 H Calcium 7.9 L POC Glucose 12/03/18 12/03/18 12/02/18 06:39 04:39 21:54 POC Glucose 122 H 130 H 152 H 12/02/18 12/02/18 12/02/18 16:14 10:38 06:22 POC Glucose 122 H 187 H 134 H Medical Necessity - Tobacco Use Smoking Status: Former smoker Tobacco Use: Non-smoker Assessment/Plan All Active Problems (Last Reviewed 11/27/18 @ 15:09 by Eula Tirado PA-C) Open wound of sacroiliac region with complication (Acute) Open wound of buttock (Acute) Elevated troponin (Acute) I have been consulted in conjunction with Dr. Serrato. S/p diverting colostomy Patient progressing well We will continue to monitor this patient Code Visit Inpatient E&M: 09521 Subs Hosp L1 - Post-op/No charge
--- NOTE | 2018-12-03 11:15 | NURSING ---
wound photo: sacrum
--- NOTE | 2018-12-03 11:16 | NURSING ---
stoma photo: left lower abdomen
--- NOTE | 2018-12-03 11:22 | NURSING ---
removed the colostomy appliance. stoma is dark pink and moist. stoma sits just above the skin level and measures approx 1 1/4. peristomal skin is intact. present in room to observe an appliance change. cleansed peristomal skin with warm water. pat dry. applied a Fredo flat 2 piece appliance with a small amount of stoma paste. showed the pattern for the stoma size for the next change. educated patient and that often times the stoma size will decrease in the first 6-8 weeks so a cut to fit appliance is typically used. will continue ostomy education with patient and while in TCU. both deny further questions at this time.
[2018-12-03 11:26] LABS: Bedside Glucose 124 mg/dL (70-110)
[2018-12-03] MEDS: DiphenhydrAMINE 25 MG Capsule PO (12:35)
--- NOTE | 2018-12-03 14:59 | PCM.PN.SRG ---
Patient Problems: Active and Suspected Problems (Last Reviewed 11/27/18 @ 15:09 by Eula Tirado PA-C) Acute respiratory failure (Acute) Pilonidal cyst (Acute) NSTEMI (non-ST elevated myocardial infarction) (Acute) Subjective: Postop #11 Patient is resting comfortably. VAC applied today. - Physical Exam General: Alert, Oriented x3 HEENT: PERRLA, EOMI Oral: Moist Mucosa Neck: Supple Skin: Ulcer/ Wound - bilateral perianal and sacral wounds are stable. No active bleeding seen. VAC applied today. Neurological: Cranial nerves II-XII grossly intact Psych/Mental Status: Normal Affect, Appropriate Vital Signs Temp Pulse Resp BP Pulse Ox 98.4 F 56 L 16 136/57 H 92 12/03/18 09:20 12/03/18 09:20 12/03/18 09:20 12/03/18 09:20 12/03/18 09:20 Oxygen Flow Rate (L/min) 3 Oxygen Delivery Method Nasal Cannula Weight: 227 lb 11.8 oz Body Mass Index (BMI) 38.4 Finger Stick Blood Glucose 202 Intake and Output for Last 24 Hours 12/01/18 12/02/18 12/03/18 23:59 23:59 23:59 Intake Total 3650 / 3650 2486 / 2486 715.8 / 715.8 Output Total 1400 / 1400 2345 / 2345 615 / 615 Balance 2250 / 2250 141 / 141 100.8 / 100.8 Laboratory Tests Past 24 Hrs 12/03/18 05:25 Sodium 141 Potassium 3.4 L Chloride 109 H Carbon Dioxide 25.0 Anion Gap 7 BUN 7 Creatinine 0.72 Estim Creat Clear Calc 40.22 Est GFR (MDRD) Af Amer 103 Est GFR (MDRD) Non-Af 85 BUN/Creatinine Ratio 9.8 L Glucose 117 H Calcium 7.9 L POC Glucose 12/03/18 12/03/18 12/03/18 11:05 06:39 04:39 POC Glucose 124 H 122 H 130 H 12/02/18 12/02/18 21:54 16:14 POC Glucose 152 H 122 H Medical Necessity - Tobacco Use Smoking Status: Former smoker Tobacco Use: Non-smoker Assessment/Plan All Active Problems (Last Reviewed 11/27/18 @ 15:09 by Eula Tirado, PA-C) Acute respiratory failure (Acute) Pilonidal cyst (Acute) NSTEMI (non-ST elevated myocardial infarction) (Acute) Open wound of sacroiliac region with complication (Acute) Open wound of buttock (Acute) Elevated troponin (Acute) 1. Hidradenitis bilateral perianal areas. 2. Extensive, complicated pilonidal cyst abscess. 3. Former smoker. 4. s/p surgical preparation bilateral perianal areas with excision hidradenitis (162.5 cm2) and excision extensive, complicated pilonidal cyst abscess (75 cm2). 5. Anemia of chronic disease, acute on chronic. 6. s/p diverting colostomy. Wound VAC was applied today. Operative culture showed Staphylococcus epidermidis and Enterococcus gallinarum and Anaerobic cocci. Continue Unasyn. Infectious Diseases involved with antibiotic management. Prealbumin was 13.7. Encourage nutritional supplementation with protein to help the healing process. Hgb increased to 8.6 from 7.7 after PRBC. She has anemia of chronic disease, acute on chronic. Had 250 ml of operative blood loss from the debridement. There was not much blood loss from the colostomy. Also some IV dilution. Continue iron supplementation. She had her stress test and angiogram. She has some blockages that can be treated with medication at this time. She has been approved for TCU. Discharge today.
--- NOTE | 2018-12-03 15:00 | PCM.TXEXTCAR ---
- Diet 12/02/18 15:06 Diet: Cardiac/Low Cholesterol Food consistency:: Regular Liquid Consistency:: Regular/Thin Is pt able to select menu?: Yes Diet Comments: per nutrition cardiac also - Routine Orders/Code Status Wong Catheter Size: 16 Change Wong Catheter: monthly and prn O2 Frequency: PRN Routine Lab Work: CBC - qweekly, BMP - qweekly, - - ESR, CRP qweekly - Wound(s) BUTTOCKS AND COCCYX Wound Type: Open Surgical Wound Pannus Wound Type: moisture related maceration sacrum/elisha-rectal area Wound Type: Open Surgical Wound Dressing Change: applied KCI wound VAC right wrist Wound Type: Puncture ABD Wound Type: Surgical Incision - Suggestions for Active Care Change Position every (hours): 2 Hours to sit in a chair: 2 Times a day to sit in chair: 4 - Therapies Weight Bearing: Weight bearing as tolerated Physical Therapy: Eval and Treat Occupational Therapy: Eval and Treat - Allergies/Procedures Done in Hospital Allergies/Adverse Reactions: Allergies adhesive tape Allergy (Unknown, Verified 11/22/18 08:41) Unknown azithromycin [From Zithromax] Allergy (Unknown, Verified 11/22/18 08:41) Unknown cephalexin [From Keflex] Allergy (Unknown, Verified 11/22/18 08:41) Unknown Procedures: 2-D Echocardiogram, Blood transfusion, Cardiac catheterization, Nuclear Stress Test, Wound Vac placement, - - 11/22/18 - 1. Surgical preparation bilateral perianal areas with excision hidradenitis (162.5 cm2). 2. Excision extensive, complicated pilonidal cyst abscess (75 cm2). 11/30/18 - Laparoscopic creation of a sigmoid colostomy (Michelle's procedure) - Type of Care/Length of Stay Estimated LOS: More Than 30 Days Type of Care Needed: Skilled Rehab Potential: Fair Prognosis: Fair - Additional Orders/Day of Discharge H&P will serve as current which was dated: 11/22/18 Day of Discharge: 12/03/18 - Dietary and Speech Recommendations Dietitian Recommendations/Changes: Suggest diet change to 1800 calorie, cardiac, no added salt. Continue Juice 1 packet BID for wound healing. - Follow Up Care Primary Care Physician: Inez Rangel NP-C [Primary Care Provider] - Please follow up with your Primary Care Physician in: after discharge from TCU. On new cardiac meds. Lopressor added to Losartan Please Follow Up With: Dustin Eaton MD - call [phone] for appt. When: after discharge from TCU, [facility]. Please Follow Up With: Alejandrina Garcias MD When: after discharge from TCU. On new cardiac meds. Lopressor added to Losartan
--- NOTE | 2018-12-03 15:25 | CASEMGMT ---
Patient is ready for discharge to [facility]. Patient's is present. Plan: d/c to [facility] under skilled level of care. Flor SILVERIO MSW
--- NOTE | 2018-12-03 15:35 | PCM.DC.SUM ---
Discharge Date and Diagnosis - Problem List Patient Problems: Active and Suspected Problems (Last Reviewed 11/27/18 @ 15:09 by Eula Tirado PA-C) Acute respiratory failure (Acute) Pilonidal cyst (Acute) NSTEMI (non-ST elevated myocardial infarction) (Acute) Date of Admission: 11/22/18 Date of Discharge: 12/03/18 - Primary Discharge Diagnosis Elevated troponin NSTEMI (non-ST elevated myocardial infarction) Hidradenitis bilateral perianal areas. Extensive, complicated pilonidal cyst abscess. Anemia of chronic disease, acute on chronic. - Secondary Discharge Diagnosis Former smoker Hx of hysterectomy Depression Hypertension Type 2 diabetes mellitus Hypothyroidism Bilateral axillary hidradenitis Bilateral inguinal hidradenitis COPD (chronic obstructive pulmonary disease) Hx of bilateral carpal tunnel repair Hemorrhoids Rheumatoid arthritis CAD Acid reflux. Anxiety. Asthma. Cataracts. High cholesterol. High triglycerides. Neuropathy. Hospital Course and Treatment Imaging Results: Chest X-Ray 11/24/18 05:55 IMPRESSION: 1. Hypoinflation with bibasilar atelectasis. Extubation. Electronically Signed: Foster Daigle MD at 17:25 EDT , Service support , Consultations 11/22/18 16:13 Consult: Onc/Wound/vp ancillary Routine Comment: Hospitalist Group - Drs. Campoverde, Raquel, Sonal. Cardiology - Drs. Garcias, Olive. Social Studies Department Chair - Dr. Roberson. Infectious Diseases - Dr. Frye. General Surgery - Trinidad Bird. Operations: - - 11/22/18 - 1. Surgical preparation bilateral perianal areas with excision hidradenitis (162.5 cm2). 2. Excision extensive, complicated pilonidal cyst abscess (75 cm2). 11/30/18 - Laparoscopic creation of a sigmoid colostomy (Michelle's procedure) Procedures: Blood transfusion, Cardiac catheterization, EKG, Nuclear stress test, Transthoracic echo, Wound vac placement Summary of Care Provided: The patient is a 73 year old F []73 year old woman presents with a flare up of hidradenitis in her bilateral perianal area. She has pain when sitting. She has noticed some drainage and some odor. She denies fever. She denies trauma. She has had hidradenitis before in her bilateral axillary areas, and left inguinal area. She had recent left inguinal hidradenitis surgery. She has also noted early onset hidradenitis in her right inguinal area but is asymptomatic at present. She has recently sustained a right shoulder dislocation and is undergoing PT. She is supposed to have a shoulder replacement in the future after her infected hidradenitis in her bilateral perianal areas have been excised and the wounds have healed. She is currently on Doxycycline for her recent left inguinal hidradenitis surgery. She was taken to surgery on 11/22/18 and she underwent surgical preparation bilateral perianal areas with excision hidradenitis (162.5 cm2) and excision extensive, complicated pilonidal cyst abscess (75 cm2). She tolerated the procedure well and was extubated. However in the PACU, she developed breathing issues secondary to her COPD and was reintubated. She was then transferred to ICU. Social Studies Department Chair was consulted for ICU and vent management. Hospitalist Group was consulted for medical management. The next morning she was extubated without problem and was transferred out of the ICU and to PCU. During this process she developed some EKG changes. The Troponin initially was normal at 0.036. However the next one was 0.695. It continued to increase to 2.5. Cardiology was consulted and on 11/23/18 the patient underwent a Transthoracic Echo. It showed hypokinesis of lateral wall with an ejection fraction of 55%. The elevated troponin appeared to be related to her hypotension and respiratory issues perioperatively and also could have underlying CAD. Because the patient was asymptomatic, it was felt she could be followed up as an outpatient with a stress test. The wound had some oozing issues the first night when she got up to go to the bathroom. The wound was stabilized with continued compression dressings with Aquacel Silver. Because of the proximity of the wound to the anal opening, it was felt that a diverting colostomy was necessary to minimize further stool contamination in the wound. On the 4th postop day, Infectious Diseases was consulted for antibiotic management. Patient had been on Unasyn and Levaquin and Flagyl. Operative cultures showed Staphylococcus epidermidis, Enterococcus gallinarum, and Anaerobic cocci. The Unasyn was continued. The Levaquin and Flagyl were stopped. General Surgery was consulted for the diverting colostomy. Since that will require general anesthesia, Cardiology felt that the stress test that was going to be done as an outpatient should be done now because of the proposed upcoming surgery. On 11/27/18, the nuclear stress test showed an area of stress induced myocardial ischemia involving apical areas. This was consistent with a Non ST segment elevation ID. This necessitated an coronary angiogram which was done on 11/28/18. It showed 70% stenosis in the LAD and 100% occlusion in the RCA with collaterals. Medical treatment was started with Lopressor and Nitrates prn. She was already on Losartan. After the colostomy, aspirin will be started. During her hospital stay, her Hgb had drifted from 8.4 down to 7.7. She was given PRBC and it improved to 8.6 in preparation for the diverting colostomy which was done on 11/30/18. Postop the colostomy showed good function. On 12/03/18, the VAC was applied as TCU was approved. She was discharged on 12/03/18 to go to TCU. Her Prealbumin from 11/23/18 was 13.7. Encouraged nutritional supplementation with protein to help the healing process. She had a HgbA1c drawn on 11/30/18. It was 6.2. Her Pathology from the surgery showed hidradenitis and pilonidal cyst and no carcinoma seen. Will continue the Unasyn. Will continue the VAC. Will continue the heart meds. After discharge from TCU, will followup at the [facility]. If there is a plateau in the healing process, can proceed with delayed closure with skin grafting. Her condition upon discharge was stable. Patient Problems: Active and Suspected Problems (Last Reviewed 11/27/18 @ 15:09 by Eula Tirado PA-C) Acute respiratory failure (Acute) Pilonidal cyst (Acute) NSTEMI (non-ST elevated myocardial infarction) (Acute) - Physical Exam Vital Signs Temp Pulse Resp BP Pulse Ox 98.1 F 61 16 96/60 94 12/03/18 15:15 12/03/18 15:15 12/03/18 15:15 12/03/18 15:15 12/03/18 15:15 Oxygen Flow Rate (L/min) 3 Oxygen Delivery Method Nasal Cannula Weight: 227 lb 11.8 oz Body Mass Index (BMI) 38.4 Finger Stick Blood Glucose 202 Intake and Output for Last 24 Hours 12/01/18 12/02/18 12/03/18 23:59 23:59 23:59 Intake Total 3650 / 3650 2486 / 2486 715.8 / 715.8 Output Total 1400 / 1400 2345 / 2345 615 / 615 Balance 2250 / 2250 141 / 141 100.8 / 100.8 Laboratory Tests Past 24 Hrs 12/03/18 05:25 Sodium 141 Potassium 3.4 L Chloride 109 H Carbon Dioxide 25.0 Anion Gap 7 BUN 7 Creatinine 0.72 Estim Creat Clear Calc 40.22 Est GFR (MDRD) Af Amer 103 Est GFR (MDRD) Non-Af 85 BUN/Creatinine Ratio 9.8 L Glucose 117 H Calcium 7.9 L POC Glucose 12/03/18 12/03/18 12/03/18 11:05 06:39 04:39 POC Glucose 124 H 122 H 130 H 12/02/18 12/02/18 21:54 16:14 POC Glucose 152 H 122 H Discharge Diet: No Restrictions, - - encourage nutritional supplementation with protein to help the healing process. Discharge Activity: May Shower - at the time of the VAC dressing changes. May shower in (days): 2 - at the time of the VAC dressing changes. May resume sexual activity in: 6-8 weeks Weight Bearing Status: Weight bearing as tolerated Call your doctor if your incision/area has: Continuous Slow Oozing, Sudden Increased Bleeding, Increased Pain/ Swelling, Increased Redness, Foul Smelling Discharge, Swelling at the incision site Call your doctor if you observe: Fever of 101 or Higher, Coldness, Increased Pain, Shortness of breath, Chest pain, Calf discomfort, Uncontrolled pain Suture Line Care: - - vac dressing changes three times per week at 150 mmHg continuous suction. Change Dressing in (Days):: 2 - VAC changes three times per week. Cleanse incision/area with: Soap & Water - may cleanse the wound with soap and water at the time of the VAC dressing changes., - - may take a shower on the days the VAC is changed. Home Medications: Medications to take at Discharge aspirin 325 mg tablet 325 mg PO DAILY 10/25/18 atorvastatin 80 mg tablet 80 mg PO DAILY 10/25/18 bimatoprost 0.01 % eye drops 1 drp OPHTHALMIC QPM 10/25/18 citalopram 20 mg tablet 20 mg PO DAILY 10/25/18 furosemide 40 mg tablet 40 mg PO DAILY 10/25/18 levalbuterol 0.63 mg/3 mL solution for nebulization 0.63 mg INHALATION ONCE PRN 10/25/18 metformin 500 mg tablet 500 mg PO BID 10/25/18 polyethylene glycol 3350 17 gram oral powder packet 17 g PO DAILY PRN 10/25/18 potassium chloride 20 mEq oral packet 20 meq PO DAILY 10/25/18 pumpkin seed extract-soy germ 300 mg capsule 1 cap PO PRN PRN cap 10/25/18 ropinirole 0.5 mg tablet 0.5 mg PO QHS 10/25/18 Acetaminophen [Tylenol] 500 mg PO Q6H PRN PRN 12/03/18 Ampicillin/Sulbactam [Unasyn] 3 gm IV Q6H 12/03/18 Budesonide Aerosol [Pulmicort Respules] 0.5 mg INHALATION BID.RT 12/03/18 DiphenhydrAMINE [Benadryl] 25 mg PO Q6H PRN capsule 12/03/18 Docusate Sodium [Colace] 100 mg PO BID 12/03/18 Fenofibrate [Tricor] 48 mg PO DAILY 12/03/18 Glucagon 1 mg IM .X1 PRN syringe 12/03/18 Glucerna Shake 120 ml PO 4X/DAY 12/03/18 Insulin Human 75/25 [Humalog Mix 75-25 Kwikpen] 20 unit SC BID 12/03/18 Insulin Lispro [Humalog KwikPen] See Protocol SQ ACHS 12/03/18 Ipratropium/Albuterol Sulfate [Duoneb] 3 ml INHALATION Q6HWA.RT 12/03/18 Iron Polysaccharide Complex [Ferrex 150] 150 mg PO DAILYCM 12/03/18 Latanoprost 0.005% [Xalatan Opthalmic] 1 drop OPHTHALMIC HS 12/03/18 Levothyroxine [Synthroid] 175 mcg PO [id number]@0600 12/03/18 Losartan Potassium [Cozaar] 25 mg PO DAILY 12/03/18 Metoprolol Tartrate [Lopressor (beta jorge)] 25 mg PO BID 12/03/18 Nutritional Supplement [Juice - ORANGE FLAVOR] 1 packet PO BIDCM 12/03/18 Nystatin Powder [Mycostatin Powder] 1 applic TOPICAL BID 12/03/18 Ondansetron [Zofran] 4 mg IV Q6H PRN PRN vial 12/03/18 Oxycodone [Oxyir] 10 mg PO Q4H PRN PRN 12/03/18 Primary Care Physician: Inez Rangel NP-C [Primary Care Provider] - Please follow up with your Primary Care Physician in: after discharge from TCU. On new cardiac meds. Lopressor added to Losartan Please Follow Up With: Dustin Eaton MD - call [phone] for appt. When: after discharge from TCU, followup [facility]. Please Follow Up With: Alejandrina Garcias MD When: after discharge from TCU. On new cardiac meds. Lopressor added to Losartan [facility] Minutes spent on discharge:: 45 Patient Condition:: Stable Medical Necessity - Tobacco Use Smoking Status: Former smoker Tobacco Use: Non-smoker Meaningful Use Info Meaningful Use Diagnoses (Choose all that apply): AMI - AMI Aspirin given w/in 24hrs of arrival?: Yes ASA at discharge?: Yes Statins at discharge?: Yes Oliver/ARB at discharge?: Yes Beta Jorge at discharge?: Yes Done w/ Acute ID measure.: Yes
--- NOTE | 2018-12-03 15:57 | NURSING ---
report called to Bert FLORES on TCU
--- NOTE | 2018-12-03 17:04 | PCM.PN.ID ---
Subjective: Feeling ok, no fever, transfer planned. - Physical Exam General: Alert, Cooperative, No apparent distress Lungs: Clear to auscultation, Normal air movement Cardiovascular: Regular rate, Regular Rhythm Abdomen: Soft, Tender - mild Skin: Ulcer/ Wound Vital Signs Temp Pulse Resp BP Pulse Ox 98.1 F 61 16 96/60 94 12/03/18 15:15 12/03/18 15:15 12/03/18 15:15 12/03/18 15:15 12/03/18 15:15 Oxygen Flow Rate (L/min) 3 Oxygen Delivery Method Nasal Cannula Weight: 103.3 kg Body Mass Index (BMI) 38.4 Finger Stick Blood Glucose 202 Intake and Output for Last 24 Hours 12/01/18 12/02/18 12/03/18 23:59 23:59 23:59 Intake Total 3650 / 3650 2486 / 2486 715.8 / 715.8 Output Total 1400 / 1400 2345 / 2345 615 / 615 Balance 2250 / 2250 141 / 141 100.8 / 100.8 Laboratory Tests Past 24 Hrs 12/03/18 05:25 Sodium 141 Potassium 3.4 L Chloride 109 H Carbon Dioxide 25.0 Anion Gap 7 BUN 7 Creatinine 0.72 Estim Creat Clear Calc 40.22 Est GFR (MDRD) Af Amer 103 Est GFR (MDRD) Non-Af 85 BUN/Creatinine Ratio 9.8 L Glucose 117 H Calcium 7.9 L POC Glucose 12/03/18 12/03/18 12/03/18 11:05 06:39 04:39 POC Glucose 124 H 122 H 130 H 12/02/18 21:54 POC Glucose 152 H Medical Necessity - Tobacco Use Smoking Status: Former smoker Tobacco Use: Non-smoker Route of nutrition/ use of supplements: [] Nutritional Intake: [] IV Site: [] Wong Catheter: [] - Assessment/Plan Antibiotics: [] Assessment/Plan: [] Active and Suspected Problems (Last Updated 11/23/18 @ 09:47 by Trae García MD) Elevated troponin (Acute) Hidradenitis suppurativa with extensive sacral pilonidal abscess, now s/p I&D by Dr. Eaton 11/22/18. Surg cx with MSSE, Enterococcus galinarium, and anaerobes. No fever, normal wbc. Given elisha-anal involvement, diverting ostomy done. Has completed 10 days of abx since her debridement, ok to stop. Will follow as needed at TCU.
--- NOTE | 2018-12-04 17:56 | PCM.PN.HOSP ---
Patient Problems: Active and Suspected Problems (Last Reviewed 11/27/18 @ 15:09 by Eula Tirado PA-C) Acute respiratory failure (Acute) Pilonidal cyst (Acute) NSTEMI (non-ST elevated myocardial infarction) (Acute) Subjective: Late entry note. Patient was seen on 9 in the morning Patient was seen in the room with her . Feels improved. Denies any fever or chills. Complains of itchiness around the site of the wound VAC. Objective: Physical Exam General: Alert, Oriented x3, Cooperative, No apparent distress HEENT: Atraumatic, PERRLA, EOMI, Normocephalic Oral: Moist Mucosa, No Gingival or Mucosal Lesions/ Ulcerations Neck: Supple, No JVD, Negative Carotid Bruits, Trachea Midline, Thyroid Normal Size and Texture Lungs: Clear to auscultation, No rhonchi, No wheeze, No rales, Diminished Cardiovascular: Regular rate, Regular Rhythm, Normal S1, Normal S2, PMI Normal Abdomen: Bowel Sounds Present, Soft, Non Tender, Non-Distended, No Hepato-splenomegaly, - - Colostomy bag in place. Extremities: No clubbing, No cyanosis, No edema Skin: No rashes, Ulcer/ Wound Lymphatic: No Cervical, Supraclavicular, or Inguinal Adenopathy Neurological: Cranial nerves II-XII grossly intact, Neuro grossly intact Psych/Mental Status: Normal Affect, Appropriate, Alert and oriented to time, place, person, mood and affect Vitals/I&O's: Vital Signs Temp Pulse Resp BP Pulse Ox 98.1 F 61 16 96/60 94 12/03/18 15:15 12/03/18 15:15 12/03/18 15:15 12/03/18 15:15 12/03/18 15:15 Oxygen Flow Rate (L/min) 3 Oxygen Delivery Method Nasal Cannula Weight: 103.3 kg Body Mass Index (BMI) 38.4 Finger Stick Blood Glucose 202 Intake and Output for Last 24 Hours 12/02/18 12/03/18 12/04/18 23:59 23:59 23:59 Intake Total 2486 / 2486 715.8 / 715.8 Output Total 2345 / 2345 615 / 615 Balance 141 / 141 100.8 / 100.8 Medical Necessity - Tobacco Use Smoking Status: Former smoker Tobacco Use: Non-smoker Assessment/Plan All Active Problems (Last Reviewed 11/27/18 @ 15:09 by Eula Tirado PA-C) Acute respiratory failure (Acute) Pilonidal cyst (Acute) NSTEMI (non-ST elevated myocardial infarction) (Acute) Open wound of sacroiliac region with complication (Acute) Open wound of buttock (Acute) Elevated troponin (Acute) 73-year-old female with past medical history of hidradenitis of the bilateral axillary, inguinal and perianal region, reportedly with history of COPD on 3 L of oxygen hypertension, type II DM who comes in for an elective debridement of hidradenitis suppirativa and found to be in respiratory distress after initial extubation and re-intubated in PACU. She was intubated and managed in ICU, subsequently extubated and transferred to PCU. 1. Polymicrobial bilateral perianal hidradenitis/complicated pilonidal cyst/abscess, status post excision, postop day 11, on IV antibiotics ID consulted. 2. Acute hypoxic/hypercapneic respiratory failure, underlying history of COPD on 3 L of oxygen, improved status post intubation, status post extubation, on her home 3 L of oxygen 3. Status post dilation sigmoid colostomy, postop day #3 4. Elevated troponin/acute non-ST elevation [place] likely secondary to demand is ischemia with transient hypotension in the PACU Stress test showed areas concerning for stress-induced ischemia Cardiac cath showed mild luminal irregularities of the left main artery, 70% stenosis of the LAD, 100% stenosis of the right coronary arteries with collaterals Patient is being medically managed 5. Acute on chronic iron deficiency anemia, status post 1 unit packed RBCs, stable hemoglobin, 6. Type II DM, stable, continue on insulin sliding scale 7. Hypertension, controlled, continue on losartan 8. Hypothyroidism, on levothyroxine 9. DVT PPx- SCDs Code Visit Inpatient E&M: 63989 Subs Hosp L2
--- NOTE | 2018-12-04 18:01 | PN_ITS ---
Patient Problems: Active and Suspected Problems (Last Reviewed 11/27/18 @ 15:09 by Eula Tirado PA-C) Acute respiratory failure (Acute) Pilonidal cyst (Acute) NSTEMI (non-ST elevated myocardial infarction) (Acute) Subjective: Late entry note. Patient was seen on 9 in the morning Patient was seen in the room with her . Feels improved. Denies any fever or chills. Complains of itchiness around the site of the wound VAC. Objective: Physical Exam General: Alert, Oriented x3, Cooperative, No apparent distress HEENT: Atraumatic, PERRLA, EOMI, Normocephalic Oral: Moist Mucosa, No Gingival or Mucosal Lesions/ Ulcerations Neck: Supple, No JVD, Negative Carotid Bruits, Trachea Midline, Thyroid Normal Size and Texture Lungs: Clear to auscultation, No rhonchi, No wheeze, No rales, Diminished Cardiovascular: Regular rate, Regular Rhythm, Normal S1, Normal S2, PMI Normal Abdomen: Bowel Sounds Present, Soft, Non Tender, Non-Distended, No Hepato- splenomegaly, - - Colostomy bag in place. Extremities: No clubbing, No cyanosis, No edema Skin: No rashes, Ulcer/ Wound Lymphatic: No Cervical, Supraclavicular, or Inguinal Adenopathy Neurological: Cranial nerves II-XII grossly intact, Neuro grossly intact Psych/Mental Status: Normal Affect, Appropriate, Alert and oriented to time, place, person, mood and affect Vitals/I&O's: Vital Signs Temp Pulse Resp BP Pulse Ox 98.1 F 61 16 96/60 94 12/03/18 15:15 12/03/18 15:15 12/03/18 15:15 12/03/18 15:15 12/03/18 15:15 Oxygen Flow Rate (L/min) 3 Oxygen Delivery Method Nasal Cannula Weight: 103.3 kg Body Mass Index (BMI) 38.4 Finger Stick Blood Glucose 202 Intake and Output for Last 24 Hours 12/02/18 12/03/18 12/04/18 23:59 23:59 23:59 Intake Total 2486 / 2486 715.8 / 715.8 Output Total 2345 / 2345 615 / 615 Balance 141 / 141 100.8 / 100.8 Medical Necessity - Tobacco Use Smoking Status: Former smoker Tobacco Use: Non-smoker Assessment/Plan All Active Problems (Last Reviewed 11/27/18 @ 15:09 by Eula Tirado PA-C) Acute respiratory failure (Acute) Pilonidal cyst (Acute) NSTEMI (non-ST elevated myocardial infarction) (Acute) Open wound of sacroiliac region with complication (Acute) Open wound of buttock (Acute) Elevated troponin (Acute) 73-year-old female with past medical history of hidradenitis of the bilateral axillary, inguinal and perianal region, reportedly with history of COPD on 3 L of oxygen hypertension, type II DM who comes in for an elective debridement of hidradenitis suppirativa and found to be in respiratory distress after initial e xtubation and re-intubated in PACU. She was intubated and managed in ICU, subsequently extubated and transferred to PCU. 1. Polymicrobial bilateral perianal hidradenitis/complicated pilonidal cyst/ abscess, status post excision, postop day 11, on IV antibiotics ID consulted. 2. Acute hypoxic/hypercapneic respiratory failure, underlying history of COPD on 3 L of oxygen, improved status post intubation, status post extubation, on her home 3 L of oxygen 3. Status post dilation sigmoid colostomy, postop day #3 4. Elevated troponin/acute non-ST elevation [place] likely secondary to demand is is chemia with transient hypotension in the PACU Stress test showed areas concerning for stress-induced ischemia Cardiac cath showed mild luminal irregularities of the left main artery, 70% stenosis of the LAD, 100% stenosis of the right coronary arteries with collaterals Patient is being medically managed 5. Acute on chronic iron deficiency anemia, status post 1 unit packed RBCs, stable hemoglobin, 6. Type II DM, stable, continue on insulin sliding scale 7. Hypertension, controlled, continue on losartan 8. Hypothyroidism, on levothyroxine 9. DVT PPx- SCDs Code Visit Inpatient E&M: 07405 Subs Hosp L2
--- NOTE | 2019-01-09 14:55 | CL.D_ITS ---
Patient Name: CHRISS VERA Study Date: 11/28/2018 Performing: Phuc Garcias MD Ht: 62.99 inches 160 cm : 1945 Wt: 218.26 lbs 99 kg Age: 73 Gender: female BSA: 2.01 PROCEDURE(S) PERFORMED TO31-V[facility]/COR CLINICAL PROFILE AND INDICATIONS Indications: Pre-Operative Evaluation Heart Failure: None Stress/Imaging Stress Test w/SPECT MPI: Yes Result: Positive Intermediate RiskStress Test with SP ECT MPI: Positive Intermediate Risk CONCLUSIONS CAD as described No significant RECOMMENDATIONS Medical therapy for CAD Based on the CARP trial no further cardiac work up/revascularization required prior to diverting colo stomy. DESCRIPTION OF PROCEDURE The patient arrived to the procedure lab. The risks and benefits of the procedure as well as a full d escription of our services here and current unavailability of surgical backup were fully explained to the patient and/or their significant other prior to the catheterization. The Timeout was completed, verifying the correct patient and procedure. The patient's procedural site was prepped and draped in the usual fashion. Local anesthetic was given subcutaneously to right radial region with Lidocaine 2% . Using a modified Seldinger technique, arterial access was obtained via the right radial artery, a 6 Fr sheath was inserted. Left Coronary Artery selective angiography was performed in multiple views u sing a 5 Fr. JL3.5 catheter. Right Coronary Artery selective angiography was then performed in multip le views using a 5 Fr. JR 4 catheter.The arterial sheath was pulled and a TR Band was applied for hem ostasis 12cc air CORONARY ANGIOGRAPHY LEFT HEART ASSESSMENT Left Ventricular Ejection Fraction: Not assessed LV gram was not done as prior EF was available by echo and nuclear stress test LEFT MAIN: Mild luminal irregularities LEFT ANTERIOR DECENDING ARTERY: MID LAD: 70 % Stenosis CIRCUMFLEX ARTERY: Mild luminal irregularities RIGHT CORONARY ARTERY: MID RCA: 100 % Stenosis. Collaterals from the Left system to the distal RCA VALVE FINDINGS: No Aortic Valve Stenosis COMPLICATIONS No Complications PROCEDURE MEDICATIONS Oxygen: 2 L/min via nasal cannula Heparin given IA 11/28/2018 09:48:07 Verapamil 2.5mg, Ntg 100mcgs, 3000 units of Heparin given IA 11/28/2018 09:48:07 SUMMARY OF HEMODYNAMIC DATA Time AIR REST ECG 09:39:08 AO 118/46 (73) SA 09:50:48 LV 136/-2, 15 09:57:37 LV 137/0, 14 09:57:44 LVp 135/0, 6 09:57:49 AOp 128/44 (75) 09:57:54 Signed By Phuc Garcias MD On 11/28/2018 10:27:39 Phuc Garcias MD
== END 2018-12-03 16:08 | disposition skilled nursing facility (03) | DRG 570 ==
LOC: SDC 13:21 → ICU 14:06 → MS2 11-23 10:35 → PCU 11-23 11:39 → ICU 12-01 07:11 → PCU 12-01 22:42
PROVIDERS: Anesthesiology; Hospitalist; Internal Medicine; Internal Medicine Cardiovascular Disease; Internal Medicine Critical Care Medicine; Specialist; Surgery; Admitting Provider Surgery; Family Provider Nurse Practitioner Family; PCP Nurse Practitioner Family; Referring Provider Surgery; Visit Provider Internal Medicine
PROC: 0JB70ZZ Excision of Back Subcutaneous Tissue and Fascia, Open Approach (ICD-10-PCS; principal; 2018-11-22 09:55)
PROC: 0D1E4Z4 Bypass Large Intestine to Cutaneous, Percutaneous Endoscopic Approach (ICD-10-PCS; CPT 44188; principal; 2018-11-30 14:15)
DX: L73.2 Hidradenitis suppurativa (principal); I21.A1 Myocardial infarction type 2; J96.02 Acute respiratory failure with hypercapnia; L05.01 Pilonidal cyst with abscess; J96.11 Chronic respiratory failure with hypoxia; E03.9 Hypothyroidism, unspecified; J44.9 Chronic obstructive pulmonary disease, unspecified; M06.9 Rheumatoid arthritis, unspecified; D50.9 Iron deficiency anemia, unspecified; E11.9 Type 2 diabetes mellitus without complications; F32.9 Major depressive disorder, single episode, unspecified; E87.5 Hyperkalemia; B95.2 Enterococcus as the cause of diseases classified elsewhere; B95.7 Other staphylococcus as the cause of diseases classified elsewhere; Z99.81 Dependence on supplemental oxygen; E78.5 Hyperlipidemia, unspecified; I25.10 Atherosclerotic heart disease of native coronary artery without angina pectoris; E87.6 Hypokalemia; I10 Essential (primary) hypertension; K64.9 Unspecified hemorrhoids; E66.9 Obesity, unspecified; Z68.38 Body mass index [BMI] 38.0-38.9, adult; Z79.4 Long term (current) use of insulin; Z87.891 Personal history of nicotine dependence; Z90.710 Acquired absence of both cervix and uterus
CPT/HCPCS: 31720; 36415; 36600; 71045; 78452; 80048; 80053; 81001; 82274; 82550; 82728; 82803; 82962; 83036; 83540; 83550; 83735; 84134; 84443; 84466; 84478; 84484; 85025; 85027; 85610; 85730; 86850; 86900; 86920; 86922; 87070; 87075; 87077; 87102; 87186; 87205; 87206; 88304; 88305; 93005; 93017; 93306; 93454; 94002; 94003; 94640; 94660; 94762; 95831; 97110; 97140; 97162; 97166; 97530; A9500; J7030; J7040; J7120; P9016; Q9957; A4216; C1760; C1769; C1894; C8929; J0295; J1940; J2405; J2785; J7799; Q9967

== ENCOUNTER 2018-12-03 16:22 | Inpatient (IN) | payer MEDICARE, OTHER, SELFPAY ==
[2018-11-30 12:56] VITALS: BMI 38.4
[2018-12-03 16:30] VITALS: BP 110/60; PULSE 58; RESP 20; TEMP 36.6; O2SAT 94
[2018-12-03 16:55] VITALS: BMI 40.0
[2018-12-03 16:58] VITALS: BMI 40.0
[2018-12-03 17:01] LABS: Bedside Glucose 104 mg/dL (70-110)
[2018-12-03] MEDS: Docusate Sodium 100 MG Capsule PO (18:39)
[2018-12-03 18:41] VITALS: BP 110/60; PULSE 58
[2018-12-03] MEDS: Metoprolol Tartrate 25 MG Tablet PO (18:41)
[2018-12-03] MEDS: Nystatin Powder 15gm Bottle 1 APPLIC TOPICAL (18:43)
[2018-12-03] MEDS: Insulin Human 75/25 Kwickpen 20 UNIT SC (18:55)
[2018-12-03] MEDS: Ondansetron 4 MG/2 ML Vial IV (20:00)
[2018-12-03] MEDS: 0.9% NaCl Midline IV Flush IV (20:07)
--- NOTE | 2018-12-03 20:25 | PCM.HP.STD ---
Problem List (1) GERD (gastroesophageal reflux disease) Status: Chronic (2) Anxiety Status: Chronic (3) Low back pain Status: Chronic (4) Diabetes mellitus Status: Chronic (5) Anemia Status: Chronic (6) Asthma Status: Chronic (7) Carpal tunnel syndrome Status: Chronic (8) Cataracts, bilateral Status: Chronic (9) Chronic pneumonia Status: Chronic (10) Glaucoma Status: Chronic (11) Hearing loss Status: Chronic (12) Hyperlipidemia Status: Chronic (13) Neuropathy Status: Chronic (14) Osteoarthritis Status: Chronic (15) Acute respiratory failure Status: Acute (16) Pilonidal cyst Status: Acute (17) NSTEMI (non-ST elevated myocardial infarction) Status: Acute (18) Coronary artery disease Status: Chronic (19) Depression Status: Chronic (20) Hypothyroidism Status: Chronic (21) Hidradenitis suppurativa Status: Chronic Comment: bilateral inguinal hidradenitis (22) COPD (chronic obstructive pulmonary disease) Status: Chronic Qualifiers: (23) Hemorrhoids Status: Chronic (24) Rheumatoid arthritis Status: Chronic History of Present Illness Date of Admission: 12/03/18 Chief Complaint: Here for rehabilitation, strengthening, wound care, prior to discharge home with spouse. The patient is a 73 year old Female with below past medical history with following. 11/22/2018 Admit to Hospital. 11/22/2018 EKG sinus rhythm with first degree AV block, inferior infract, age undetermined, anteroseptal infarct, age undetermined. 11/22/2018 Dr. Eaton performed excision hydradenitis, excision pilonidal cyst. 11/22/2018 Respiratory distress after extubation, reintubated. IV Levaquin, IV Flagyl, for infected pilonidal cyst. 11/22/2018 Chest X-ray showed moderately diffuse pulmonary edema, small left pleural effusion. 11/23/2018 Echo showed segmental dysfunction with preserved ejection function. EF 55%. Diastolic dysfunction. 11/23/2018 Dr. Garcias consulted for elevated troponin. recommended further cardiac evaluation as outpatient. 11/26/2018 Dr. Frye, surgical cultures grew MSSE, E. Galinarium, anaerobes. Diverting colostomy recommended to prevent stool contamination. Continue IV Unasyn, stop Levaquin, stop Flagyl. 11/27/2018 Nuclear stress test POSITIVE stress induced ischemia. 11/28/2018 Heart cath shows 70% stenosis LAD, 100% occlusion RCA with collaterals. Low to intermediate risk for diverting colostomy surgery. No revascularization recommended. 11/28/2018 Dr. Frye recommended continuing IV Unasyn, then change to oral antibiotic. 11/30/2018 Dr. Serrato performed laparoscopic sigmoid colostomy. 12/02/2018 Medical management of NSTEMI. Iron supplement for anemia of chronic disease, Transfused 1 unit PRBC with improvement in hemoglobin. Clears, await stoma function for diverting colostomy. Wound vac dressing applied to wound. 12/03/2018 Admit to TCU with debility, here for rehabilitation, strengthening, wound care, prior to discharge home with spouse. Past Medical History Past Medical History (Chronic Problems): Chronic Problems (Last Reviewed 11/27/18 @ 15:09 by Eula Tirado PA-C) GERD (gastroesophageal reflux disease) (Chronic) Anxiety (Chronic) Low back pain (Chronic) Diabetes mellitus (Chronic) Anemia (Chronic) Asthma (Chronic) Carpal tunnel syndrome (Chronic) Cataracts, bilateral (Chronic) Chronic pneumonia (Chronic) Glaucoma (Chronic) Hearing loss (Chronic) Hyperlipidemia (Chronic) Neuropathy (Chronic) Osteoarthritis (Chronic) Coronary artery disease (Chronic) Pilonidal cyst with abscess (Chronic) Former smoker (Chronic) Hx of hysterectomy (Chronic) Depression (Chronic) Hypertension (Chronic) Type 2 diabetes mellitus (Chronic) Hypothyroidism (Chronic) Hidradenitis suppurativa of anus (Chronic) bilateral perianal and gluteal areas Axillary hidradenitis suppurativa (Chronic) bilateral Hidradenitis suppurativa (Chronic) bilateral inguinal hidradenitis COPD (chronic obstructive pulmonary disease) (Chronic) Hx of carpal tunnel repair (Chronic) bilateral Hemorrhoids (Chronic) Rheumatoid arthritis (Chronic) Medical History: Medical History (Last Reviewed 11/27/18 @ 15:09 by Eula Tirado PA-C) Rheumatoid arthritis (Chronic) M06.9 Anemia D64.9 Asthma J45.909 Chronic pneumonia J18.9 Glaucoma H40.9 Osteoarthritis M19.90 COPD (chronic obstructive pulmonary disease) J44.9 Allergies adhesive tape Allergy (Unknown, Verified 11/22/18 08:41) Unknown azithromycin [From Zithromax] Allergy (Unknown, Verified 11/22/18 08:41) Unknown cephalexin [From Keflex] Allergy (Unknown, Verified 11/22/18 08:41) Unknown Home Medications: Ambulatory Orders Medication Instructions Recorded aspirin 325 mg tablet 325 mg PO DAILY 10/25/18 atorvastatin 80 mg tablet 80 mg PO DAILY 10/25/18 bimatoprost 0.01 % eye drops 1 drp OPHTHALMIC QPM 10/25/18 citalopram 20 mg tablet 20 mg PO DAILY 10/25/18 furosemide 40 mg tablet 40 mg PO DAILY 10/25/18 levalbuterol 0.63 mg/3 mL solution 0.63 mg INHALATION ONCE PRN 10/25/18 for nebulization metformin 500 mg tablet 500 mg PO BID 10/25/18 polyethylene glycol 3350 17 gram 17 g PO DAILY PRN 10/25/18 oral powder packet potassium chloride 20 mEq oral 20 meq PO DAILY 10/25/18 packet pumpkin seed extract-soy germ 300 1 cap PO PRN PRN cap 10/25/18 mg capsule ropinirole 0.5 mg tablet 0.5 mg PO QHS 10/25/18 Acetaminophen [Tylenol] 500 mg PO Q6H PRN PRN 12/03/18 Ampicillin/Sulbactam [Unasyn] 3 gm IV Q6H 12/03/18 Budesonide Aerosol [Pulmicort 0.5 mg INHALATION BID.RT 12/03/18 Respules] DiphenhydrAMINE [Benadryl] 25 mg PO Q6H PRN capsule 12/03/18 Docusate Sodium [Colace] 100 mg PO BID 12/03/18 Fenofibrate [Tricor] 48 mg PO DAILY 12/03/18 Glucagon 1 mg IM .X1 PRN syringe 12/03/18 Glucerna Shake 120 ml PO 4X/DAY 12/03/18 Insulin Human 75/25 [Humalog Mix 20 unit SC BID 12/03/18 75-25 Kwikpen] Insulin Lispro [Humalog KwikPen] See Protocol SQ ACHS 12/03/18 Ipratropium/Albuterol Sulfate 3 ml INHALATION Q6HWA.RT 12/03/18 [Duoneb] Iron Polysaccharide Complex 150 mg PO DAILYCM 12/03/18 [Ferrex 150] Latanoprost 0.005% [Xalatan 1 drop OPHTHALMIC HS 12/03/18 Opthalmic] Levothyroxine [Synthroid] 175 mcg PO [id number]@0600 12/03/18 Losartan Potassium [Cozaar] 25 mg PO DAILY 12/03/18 Metoprolol Tartrate [Lopressor 25 mg PO BID 12/03/18 (beta juanita)] Nutritional Supplement [Juice - 1 packet PO BIDCM 12/03/18 ORANGE FLAVOR] Nystatin Powder [Mycostatin Powder] 1 applic TOPICAL BID 12/03/18 Ondansetron [Zofran] 4 mg IV Q6H PRN PRN vial 12/03/18 Oxycodone [Oxyir] 10 mg PO Q4H PRN PRN 12/03/18 Surgical History: Surgical History (Last Reviewed 11/27/18 @ 15:10 by Eula Tirado PA-C) Hx of hysterectomy (Chronic) Z90.710 Hx of carpal tunnel repair (Chronic) Z98.890 bilateral Surgical History: hysterectomy, total hip arthroplasty, - - Eye surgery, Carpal tunnel release, left hip repair, back surgery. 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 Lives: Spouse/ Significant Other Smoking Status: Former smoker Tobacco Use: Non-smoker Alcohol: None Drugs: None - *Family History Maternal Family History: Family History (Last Reviewed 11/27/18 @ 15:10 by Eula Tirado PA-C) Mother Lung cancer Anxiety Arthritis Depression (emotion) Diabetes Sister CVA (cerebral vascular accident) Anxiety Asthma Depression (emotion) Heart disease Aunt Arthritis Depression (emotion) Diabetes Daughter Cancer Grandmother Diabetes Grandfather Heart disease Psychiatric care CVA (cerebral vascular accident) Father COPD (chronic obstructive pulmonary disease) History Items: No pertinent history Paternal Family History: Family History (Last Reviewed 11/27/18 @ 15:10 by Eula Tirado PA-C) Mother Lung cancer Anxiety Arthritis Depression (emotion) Diabetes Sister CVA (cerebral vascular accident) Anxiety Asthma Depression (emotion) Heart disease Aunt Arthritis Depression (emotion) Diabetes Daughter Cancer Grandmother Diabetes Grandfather Heart disease Psychiatric care CVA (cerebral vascular accident) Father COPD (chronic obstructive pulmonary disease) History Items: No pertinent history Review of Systems Constitutional: Denies: Chills, Fever, Weight Change HEENT: Denies: Head Aches, Sinus Congestion, Sinus Drainage Cardiovascular: Denies: Chest Pain, Palpitations Respiratory: Denies: Cough, Shortness of breath at rest, Sputum production Gastrointestinal: Denies: Abdominal Pain, Nausea, Vomiting Genitourinary: Denies: Dysuria Musculoskeletal: Denies: Joint Pain, Joint Tenderness Skin: Denies: Rash, Wounds Neurological: Denies: Numbness, Tingling, Focal weakness Psychiatric: Denies: Anxiety, Depression, Homicidal Ideations, Suicidal Ideations Hematologic/ Lymphatic: Denies: Easy Bruising, Easy Bleeding VTE Information - Inpt Only VTE Present on Admission: No VTE Mechan Device Prophylaxis: Knee High LANI Hose VTE Pharm Prophylaxis ordered?: Yes Patient Problems: Active and Suspected Problems (Last Reviewed 11/27/18 @ 15:09 by Eula Tirado PA-C) Acute respiratory failure (Acute) Pilonidal cyst (Acute) NSTEMI (non-ST elevated myocardial infarction) (Acute) - Physical Exam General: Alert, Oriented x3, Cooperative HEENT: Atraumatic, PERRLA, EOMI, Normocephalic Neck: Supple, No JVD, Negative Carotid Bruits Lungs: Clear to auscultation, Normal air movement Cardiovascular: Regular rate, No murmurs Abdomen: Bowel Sounds Present, Soft, Non Tender, - - LLQ colostomy, indwelling baxter catheter. Extremities: No edema, Capillary Refill Less than 3 Seconds, - - Right upper extremity PICC line. Skin: No rashes, Ulcer/ Wound - Wound vac applied to buttock. Musculoskeletal: No Tenderness to Palpation of Joints or Extremities Neurological: Cranial nerves II-XII grossly intact Psych/Mental Status: Normal Affect, Appropriate Vital Signs Temp Pulse Resp BP Pulse Ox 98 F 58 L 20 H 110/60 94 12/03/18 16:30 12/03/18 18:41 12/03/18 16:30 12/03/18 18:41 12/03/18 16:30 Oxygen Flow Rate (L/min) 4 Oxygen Delivery Method Nasal Cannula Weight: 102.512 kg Body Mass Index (BMI) 40.0 Finger Stick Blood Glucose 202 Intake and Output for Last 24 Hours 12/01/18 12/02/18 12/03/18 23:59 23:59 23:59 Intake Total 240 / 240 Balance 240 / 240 POC Glucose 12/03/18 16:57 POC Glucose 104 Assessment/Plan All Active Problems (Last Reviewed 11/27/18 @ 15:09 by Eula Tirado PA-C) Acute respiratory failure (Acute) Pilonidal cyst (Acute) NSTEMI (non-ST elevated myocardial infarction) (Acute) Open wound of sacroiliac region with complication (Acute) Open wound of buttock (Acute) Elevated troponin (Acute) 73 year old female with below past medical history underwent excision hydradenitis, pilonidal cyst 11/22/[address] Eaton, Diverting colostomy 11/30/[address] Serrato, post-operative course complicated by acute respiratory failure, infected pilonidal cyst, NSTEMI, admitted to TCU with debility, here for rehabilitation, strengthening, wound care, prior to discharge home with spouse. Debility - PT/OT. Pain - Tylenol 1000MG Q6H PRN mild pain, Oxycodone 10MG Q4H PRN moderate pain. Bowel - Miralax 17GM daily, Senokot 1 tablet BID, Dulcolax 10MG PO daily PRN. Pneumonia vaccination - Administer Prevnar 13 and/or Pneumovax 23 as necessary. DVT prophylaxis - Lovenox 40MG sc daily. Asthma - Pulmicort 0.5MG nebulized BID, Duoneb 3ML Q6H, Albuterol 1.25MG nebulized Q2H PRN. Infected pilonidal cyst - Augmentin 875MG BID, stop date per Dr. Frye, wound vac per wound team. Coronary Artery Disease status post NSTEMI - Metoprolol 25MG BID, Losartan 25MG daily, Aspirin 81MG daily. Hyperlipidemia - Atorvastatin 80MG QHS, Tricor 48MG daily (no clinical evidence Tricor helpful in decreasing cardiovascular risk) Depression - Celexa 20MG daily. Itching - Hydroxyzine 50MG Q6H PRN. Edema - Lasix 40MG daily. Diabetes Mellitus II - Metformin 500MG BID, Lantus 20 units BID, Glucagon 1MG IM x 1 dose PRN. Nutrition - Glucerna 120ML 4x/day, Juice 1 packet BID. Iron deficiency anemia - Ferrex 150MG daily. Glaucoma - Xalatan 0.005% 1 GTT OU QHS. Hypothyroidism - Levothyroxine 175MCG 5 days/week. Tinea Corporis - Nystatin powder BID abdominal folds, groin. Nausea - Zofran 4MG Q6H PRN.
--- NOTE | 2018-12-03 20:29 | HP.PCM_ITS ---
Problem List (1) GERD (gastroesophageal reflux disease) Status: Chronic (2) Anxiety Status: Chronic (3) Low back pain Status: Chronic (4) Diabetes mellitus Status: Chronic (5) Anemia Status: Chronic (6) Asthma Status: Chronic (7) Carpal tunnel syndrome Status: Chronic (8) Cataracts, bilateral Status: Chronic (9) Chronic pneumonia Status: Chronic (10) Glaucoma Status: Chronic (11) Hearing loss Status: Chronic (12) Hyperlipidemia Status: Chronic (13) Neuropathy Status: Chronic (14) Osteoarthritis Status: Chronic (15) Acute respiratory failure Status: Acute (16) Pilonidal cyst Status: Acute (17) NSTEMI (non-ST elevated myocardial infarction) Status: Acute (18) Coronary artery disease Status: Chronic (19) Depression Status: Chronic (20) Hypothyroidism Status: Chronic (21) Hidradenitis suppurativa Status: Chronic Comment: bilateral inguinal hidradenitis (22) COPD (chronic obstructive pulmonary disease) Status: Chronic Qualifiers: (23) Hemorrhoids Status: Chronic (24) Rheumatoid arthritis Status: Chronic History of Present Illness Date of Admission: 12/03/18 Chief Complaint: Here for rehabilitation, strengthening, wound care, prior to discharge home with spouse. The patient is a 73 year old Female with below past medical history with following. 11/22/2018 Admit to Hospital. 11/22/2018 EKG sinus rhythm with first degree AV block, inferior infract, age undetermined, anteroseptal infarct, age undetermined. 11/22/2018 Dr. Eaton performed excision hydradenitis, excision pilonidal cyst. 11/22/2018 Respiratory distress after extubation, reintubated. IV Levaquin, IV Flagyl, for infected pilonidal cyst. 11/22/2018 Chest X-ray showed moderately diffuse pulmonary edema, small left pleural effusion. 11/23/2018 Echo showed segmental dysfunction with preserved ejection function. EF 55%. Diastolic dysfunction. 11/23/2018 Dr. Garcias consulted for elevated troponin. recommended further cardiac evaluation as outpatient. 11/26/2018 Dr. Frye, surgical cultures grew MSSE, E. Galinarium, anaerobes. Diverting colostomy recommended to prevent stool contamination. Continue IV Unasyn, stop Levaquin, stop Flagyl. 11/27/2018 Nuclear stress test POSITIVE stress induced ischemia. 11/28/2018 Heart cath shows 70% stenosis LAD, 100% occlusion RCA with collaterals. Low to intermediate risk for diverting colostomy surgery. No revascularization recommended. 11/28/2018 Dr. Frye recommended continuing IV Unasyn, then change to oral antibiotic. 11/30/2018 Dr. Serrato performed laparoscopic sigmoid colostomy. 12/02/2018 Medical management of NSTEMI. Iron supplement for anemia of chronic disease, Transfused 1 unit PRBC with improvement in hemoglobin. Clears, await stoma function for diverting colostomy. Wound vac dressing applied to wound. 12/03/2018 Admit to TCU with debility, here for rehabilitation, strengthening, wound care, prior to discharge home with spouse. Past Medical History Past Medical History (Chronic Problems): Chronic Problems (Last Reviewed 11/27/18 @ 15:09 by Eula Tirado PA-C) GERD (gastroesophageal reflux disease) (Chronic) Anxiety (Chronic) Low back pain (Chronic) Diabetes mellitus (Chronic) Anemia (Chronic) Asthma (Chronic) Carpal tunnel syndrome (Chronic) Cataracts, bilateral (Chronic) Chronic pneumonia (Chronic) Glaucoma (Chronic) Hearing loss (Chronic) Hyperlipidemia (Chronic) Neuropathy (Chronic) Osteoarthritis (Chronic) Coronary artery disease (Chronic) Pilonidal cyst with abscess (Chronic) Former smoker (Chronic) Hx of hysterectomy (Chronic) Depression (Chronic) Hypertension (Chronic) Type 2 diabetes mellitus (Chronic) Hypothyroidism (Chronic) Hidradenitis suppurativa of anus (Chronic) bilateral perianal and gluteal areas Axillary hidradenitis suppurativa (Chronic) bilateral Hidradenitis suppurativa (Chronic) bilateral inguinal hidradenitis COPD (chronic obstructive pulmonary disease) (Chronic) Hx of carpal tunnel repair (Chronic) bilateral Hemorrhoids (Chronic) Rheumatoid arthritis (Chronic) Medical History: Medical History (Last Reviewed 11/27/18 @ 15:09 by Eula Tirado PA-C) Rheumatoid arthritis (Chronic) M06.9 Anemia D64.9 Asthma J45.909 Chronic pneumonia J18.9 Glaucoma H40.9 Osteoarthritis M19.90 COPD (chronic obstructive pulmonary disease) J44.9 Allergies adhesive tape Allergy (Unknown, Verified 11/22/18 08:41) Unknown azithromycin [From Zithromax] Allergy (Unknown, Verified 11/22/18 08:41) Unknown cephalexin [From Keflex] Allergy (Unknown, Verified 11/22/18 08:41) Unknown Home Medications: Ambulatory Orders Medication Instructions Recorded aspirin 325 mg tablet 325 mg PO DAILY 10/25/18 atorvastatin 80 mg tablet 80 mg PO DAILY 10/25/18 bimatoprost 0.01 % eye drops 1 drp OPHTHALMIC QPM 10/25/18 citalopram 20 mg tablet 20 mg PO DAILY 10/25/18 furosemide 40 mg tablet 40 mg PO DAILY 10/25/18 levalbuterol 0.63 mg/3 mL solution 0.63 mg INHALATION ONCE PRN 10/25/18 for nebulization metformin 500 mg tablet 500 mg PO BID 10/25/18 polyethylene glycol 3350 17 gram 17 g PO DAILY PRN 10/25/18 oral powder packet potassium chloride 20 mEq oral 20 meq PO DAILY 10/25/18 packet pumpkin seed extract-soy germ 300 1 cap PO PRN PRN cap 10/25/18 mg capsule ropinirole 0.5 mg tablet 0.5 mg PO QHS 10/25/18 Acetaminophen [Tylenol] 500 mg PO Q6H PRN PRN 12/03/18 Ampicillin/Sulbactam [Unasyn] 3 gm IV Q6H 12/03/18 Budesonide Aerosol [Pulmicort 0.5 mg INHALATION BID.RT 12/03/18 Respules] DiphenhydrAMINE [Benadryl] 25 mg PO Q6H PRN capsule 12/03/18 Docusate Sodium [Colace] 100 mg PO BID 12/03/18 Fenofibrate [Tricor] 48 mg PO DAILY 12/03/18 Glucagon 1 mg IM .X1 PRN syringe 12/03/18 Glucerna Shake 120 ml PO 4X/DAY 12/03/18 Insulin Human 75/25 [Humalog Mix 20 unit SC BID 12/03/18 75-25 Kwikpen] Insulin Lispro [Humalog KwikPen] See Protocol SQ ACHS 12/03/18 Ipratropium/Albuterol Sulfate 3 ml INHALATION Q6HWA.RT 12/03/18 [Duoneb] Iron Polysaccharide Complex 150 mg PO DAILYCM 12/03/18 [Ferrex 150] Latanoprost 0.005% [Xalatan 1 drop OPHTHALMIC HS 12/03/18 Opthalmic] Levothyroxine [Synthroid] 175 mcg PO [id number]@0600 12/03/18 Losartan Potassium [Cozaar] 25 mg PO DAILY 12/03/18 Metoprolol Tartrate [Lopressor 25 mg PO BID 12/03/18 (beta juanita)] Nutritional Supplement [Juice - 1 packet PO BIDCM 12/03/18 ORANGE FLAVOR] Nystatin Powder [Mycostatin Powder] 1 applic TOPICAL BID 12/03/18 Ondansetron [Zofran] 4 mg IV Q6H PRN PRN vial 12/03/18 Oxycodone [Oxyir] 10 mg PO Q4H PRN PRN 12/03/18 Surgical History: Surgical History (Last Reviewed 11/27/18 @ 15:10 by Eula Tirado PA-C) Hx of hysterectomy (Chronic) Z90.710 Hx of carpal tunnel repair (Chronic) Z98.890 bilateral Surgical History: hysterectomy, total hip arthroplasty, - - Eye surgery, Carpal tunnel release, left hip repair, back surgery. 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 Lives: Spouse/ Significant Other Smoking Status: Former smoker Tobacco Use: Non-smoker Alcohol: None Drugs: None - *Family History Maternal Family History: Family History (Last Reviewed 11/27/18 @ 15:10 by Eula Tirado PA-C) Mother Lung cancer Anxiety Arthritis Depression (emotion) Diabetes Sister CVA (cerebral vascular accident) Anxiety Asthma Depression (emotion) Heart disease Aunt Arthritis Depression (emotion) Diabetes Daughter Cancer Grandmother Diabetes Grandfather Heart disease Psychiatric care CVA (cerebral vascular accident) Father COPD (chronic obstructive pulmonary disease) History Items: No pertinent history Paternal Family History: Family History (Last Reviewed 11/27/18 @ 15:10 by Eula Tirado PA-C) Mother Lung cancer Anxiety Arthritis Depression (emotion) Diabetes Sister CVA (cerebral vascular accident) Anxiety Asthma Depression (emotion) Heart disease Aunt Arthritis Depression (emotion) Diabetes Daughter Cancer Grandmother Diabetes Grandfather Heart disease Psychiatric care CVA (cerebral vascular accident) Father COPD (chronic obstructive pulmonary disease) History Items: No pertinent history Review of Systems Constitutional: Denies: Chills, Fever, Weight Change HEENT: Denies: Head Aches, Sinus Congestion, Sinus Drainage Cardiovascular: Denies: Chest Pain, Palpitations Respiratory: Denies: Cough, Shortness of breath at rest, Sputum production Gastrointestinal: Denies: Abdominal Pain, Nausea, Vomiting Genitourinary: Denies: Dysuria Musculoskeletal: Denies: Joint Pain, Joint Tenderness Skin: Denies: Rash, Wounds Neurological: Denies: Numbness, Tingling, Focal weakness Psychiatric: Denies: Anxiety, Depression, Homicidal Ideations, Suicidal Ideations Hematologic/ Lymphatic: Denies: Easy Bruising, Easy Bleeding VTE Information - Inpt Only VTE Present on Admission: No VTE Mechan Device Prophylaxis: Knee High LANI Hose VTE Pharm Prophylaxis ordered?: Yes Patient Problems: Active and Suspected Problems (Last Reviewed 11/27/18 @ 15:09 by Eula Tirado PA-C) Acute respiratory failure (Acute) Pilonidal cyst (Acute) NSTEMI (non-ST elevated myocardial infarction) (Acute) - Physical Exam General: Alert, Oriented x3, Cooperative HEENT: Atraumatic, PERRLA, EOMI, Normocephalic Neck: Supple, No JVD, Negative Carotid Bruits Lungs: Clear to auscultation, Normal air movement Cardiovascular: Regular rate, No murmurs Abdomen: Bowel Sounds Present, Soft, Non Tender, - - LLQ colostomy, indwelling baxter catheter. Extremities: No edema, Capillary Refill Less than 3 Seconds, - - Right upper extremity PICC line. Skin: No rashes, Ulcer/ Wound - Wound vac applied to buttock. Musculoskeletal: No Tenderness to Palpation of Joints or Extremities Neurological: Cranial nerves II-XII grossly intact Psych/Mental Status: Normal Affect, Appropriate Vital Signs Temp Pulse Resp BP Pulse Ox 98 F 58 L 20 H 110/60 94 12/03/18 16:30 12/03/18 18:41 12/03/18 16:30 12/03/18 18:41 12/03/18 16:30 Oxygen Flow Rate (L/min) 4 Oxygen Delivery Method Nasal Cannula Weight: 102.512 kg Body Mass Index (BMI) 40.0 Finger Stick Blood Glucose 202 Intake and Output for Last 24 Hours 12/01/18 12/02/18 12/03/18 23:59 23:59 23:59 Intake Total 240 / 240 Balance 240 / 240 POC Glucose 12/03/18 16:57 POC Glucose 104 Assessment/Plan All Active Problems (Last Reviewed 11/27/18 @ 15:09 by Eula Tirado PA-C) Acute respiratory failure (Acute) Pilonidal cyst (Acute) NSTEMI (non-ST elevated myocardial infarction) (Acute) Open wound of sacroiliac region with complication (Acute) Open wound of buttock (Acute) Elevated troponin (Acute) 73 year old female with below past medical history underwent excision hydradenitis, pilonidal cyst 11/22/[address] Eaton, Diverting colostomy 11/30/[address] Serrato, post-operative course complicated by acute respiratory failure, infected pilonidal cyst, NSTEMI, admitted to TCU with debility, here for rehabilitation, strengthening, wound care, prior to discharge home with spouse. * Debility - PT/OT. * Pain - Tylenol 1000MG Q6H PRN mild pain, Oxycodone 10MG Q4H PRN moderate pain. * Bowel - Miralax 17GM daily, Senokot 1 tablet BID, Dulcolax 10MG PO daily PRN. * Pneumonia vaccination - Administer Prevnar 13 and/or Pneumovax 23 as necessary. * DVT prophylaxis - Lovenox 40MG sc daily. * Asthma - Pulmicort 0.5MG nebulized BID, Duoneb 3ML Q6H, Albuterol 1.25MG nebulized Q2H PRN. * Infected pilonidal cyst - Augmentin 875MG BID, stop date per Dr. Frye, wound vac per wound team. * Coronary Artery Disease status post NSTEMI - Metoprolol 25MG BID, Losartan 25MG daily, Aspirin 81MG daily. * Hyperlipidemia - Atorvastatin 80MG QHS, Tricor 48MG daily (no clinical evidence Tricor helpful in decreasing cardiovascular risk) * Depression - Celexa 20MG daily. * Itching - Hydroxyzine 50MG Q6H PRN. * Edema - Lasix 40MG daily. * Diabetes Mellitus II - Metformin 500MG BID, Lantus 20 units BID, Glucagon 1MG IM x 1 dose PRN. * Nutrition - Glucerna 120ML 4x/day, Juice 1 packet BID. * Iron deficiency anemia - Ferrex 150MG daily. * Glaucoma - Xalatan 0.005% 1 GTT OU QHS. * Hypothyroidism - Levothyroxine 175MCG 5 days/week. * Tinea Corporis - Nystatin powder BID abdominal folds, groin. * Nausea - Zofran 4MG Q6H PRN.
[2018-12-03] MEDS: Amox/Clavulanate 875 MG Tablet PO (20:43)
[2018-12-03] MEDS: Pramipexole Di-HCl 0.25 MG Tablet PO (20:43)
[2018-12-03] MEDS: Atorvastatin Calcium 80 MG Tablet PO (20:43)
[2018-12-03 21:15] LABS: Bedside Glucose 155 mg/dL (70-110)
[2018-12-03] MEDS: Latanoprost 0.005% 1 Bottle 1 DRP EACH EYE (22:51)
[2018-12-03] MEDS: hydrOXYzine PAM 25 MG Capsule 50 MG PO (22:53)
--- NOTE | 2018-12-04 01:19 | NURSING ---
All care was provided to patient in room due to patient being in precautions.
[2018-12-04] MEDS: Fenofibrate 48 MG Tablet PO (05:30)
[2018-12-04] MEDS: Enoxaparin 40 MG/0.4 ML Syringe SC (05:31)
[2018-12-04] MEDS: Levothyroxine 175 MCG Tablet PO (05:31)
[2018-12-04] MEDS: Furosemide 40 MG Tablet PO (05:31)
[2018-12-04] MEDS: Losartan Potassium 25 MG Tablet PO (05:31)
[2018-12-04] MEDS: Citalopram 20 MG Tablet PO (05:32)
[2018-12-04] MEDS: Senna Tablet 1 TABLET PO ×2 (05:32→17:29)
[2018-12-04 05:38] VITALS: BP 128/49; PULSE 60
[2018-12-04] MEDS: Metoprolol Tartrate 25 MG Tablet PO ×2 (05:38→17:22)
[2018-12-04] MEDS: Nystatin Powder 15gm Bottle 1 APPLIC TOPICAL ×2 (05:42→17:22)
[2018-12-04 05:43] LABS: Absolute Neutrophil Count 5.1 X10^3/uL (2.0-7.7); Basophil# 0.02 X10^3/uL; Basophil% 0.2 % (0-1); Eosinophil# 0.41 X10^3/uL; Eosinophils% 5.1 % (0-5); Hematocrit 30.7 % (37-47); Hemoglobin 9.2 g/dl (12.0-15.0); Lymphocyte % 24.7 % (19-41); Mean Corpuscular Hgb 25.2 pg (27.0-32.0); Mean Corpuscular Volume 84.1 fL (81-99); Mean Platelet Vol. 9.9 fl (6.2-12.0); Monocyte% 6.2 % (0-10); Neutrophil # 5.13 X10^3/uL (2.7-7.7); Neutrophil % 63.2 % (47-70); Platelet Count 263 K/mm3 (150-450); RBC Distribution Width CV 16.7 % (11.6-14.6); Red Blood Count 3.65 M/mm3 (4.2-5.4); White Blood Count 8.1 K/mm3 (4.4-11.0)
[2018-12-04 05:44] LABS: POSITIVE COUNT NO; POSITIVE DIFFERENTIAL NO; POSITIVE MORPHOLOGY NO
[2018-12-04 06:29] LABS: Anion Gap 5 (5-15); BUN 11 mg/dL (7-18); BUN/Creat Ratio 29.1 RATIO (10-20); Calcium,Total 8.6 mg/dL (8.5-10.1); Chloride 104 mmol/L (98-107); Creatinine, Serum 0.38 mg/dL (0.55-1.02); EST Glomerular Filtration Rate 178 mL/min (>60); Est Glom Filt Rate - Afr Amer 215 mL/min (>60); Estimated Creatinine Clearance 42.07 ml/min; Glucose 115 mg/dL (74-106); Sodium Level 139 mmol/L (136-145)
[2018-12-04 06:36] LABS: Bedside Glucose 107 mg/dL (70-110)
[2018-12-04 07:26] VITALS: O2SAT 94
--- NOTE | 2018-12-04 08:43 | CPS ---
pt doesn't take duoneb or pulmicort @home and does not want them here. D/c'd @this time but left albuterol prn.
[2018-12-04] MEDS: Amox/Clavulanate 875 MG Tablet PO (09:19)
[2018-12-04] MEDS: Iron Polysaccharide Complex 150 MG CAPSULE PO (09:19)
[2018-12-04] MEDS: Aspirin 81 MG TAB.CHEW PO (09:19)
--- NOTE | 2018-12-04 10:56 | PN.ID_ITS ---
Patient Problems: Active and Suspected Problems (Last Reviewed 11/27/18 @ 15:09 by Eula Tirado PA-C) Acute respiratory failure (Acute) Pilonidal cyst (Acute) NSTEMI (non-ST elevated myocardial infarction) (Acute) Subjective: Feeling ok, no fever, mild abd soreness. - Physical Exam General: Alert, Cooperative, No apparent distress Lungs: Clear to auscultation, Normal air movement Cardiovascular: Regular rate, Regular Rhythm Abdomen: Soft, Non-Distended, Tender - mild Skin: Ulcer/ Wound - bandaged Vital Signs Temp Pulse Resp BP Pulse Ox 98 F 60 20 H 128/49 H 94 12/03/18 16:30 12/04/18 05:38 12/03/18 16:30 12/04/18 05:38 12/04/18 07:26 Oxygen Flow Rate (L/min) 4 Oxygen Delivery Method Nasal Cannula Weight: 102.512 kg Body Mass Index (BMI) 40.0 Finger Stick Blood Glucose 202 Intake and Output for Last 24 Hours 12/02/18 12/03/18 12/04/18 23:59 23:59 23:59 Intake Total 240 / 240 120 / 120 Output Total 950 / 950 1000 / 1000 Balance -710 / -710 -880 / -880 Laboratory Tests Past 24 Hrs 12/04/18 12/04/18 05:15 05:15 WBC 8.1 RBC 3.65 L Hgb 9.2 L Hct 30.7 L MCV 84.1 MCH 25.2 L MCHC 30.0 L RDW 16.7 H RDW Differential 50.0 H Plt Count 263 MPV 9.9 Immature Gran % (Auto) 0.600 Neut % (Auto) 63.2 Lymph % (Auto) 24.7 Sebastian % (Auto) 6.2 Eos % (Auto) 5.1 H Baso % (Auto) 0.2 Absolute Neuts (auto) 5.1 Absolute Lymphs (auto) 2.00 Total Counted Not Reportable Sodium 139 Potassium 4.0 Chloride 104 Carbon Dioxide 30.0 Anion Gap 5 BUN 11 Creatinine 0.38 L Estim Creat Clear Calc 42.07 Est GFR (MDRD) Af Amer 215 Est GFR (MDRD) Non-Af 178 BUN/Creatinine Ratio 29.1 H Glucose 115 H Calcium 8.6 C-React Prot Ext Range 40.40 H POC Glucose 12/04/18 12/03/18 12/03/18 06:18 21:09 16:57 POC Glucose 107 155 H 104 Medical Necessity - Tobacco Use Smoking Status: Former smoker Tobacco Use: Non-smoker Route of nutrition/ use of supplements: [] Nutritional Intake: [] IV Site: [] Wong Catheter: [] - Assessment/Plan Antibiotics: [] Assessment/Plan: [] Active and Suspected Problems (Last Reviewed 11/27/18 @ 15:09 by Eula Tirado PA-C) Acute respiratory failure (Acute) Pilonidal cyst (Acute) NSTEMI (non-ST elevated myocardial infarction) (Acute) Hidradenitis suppurativa with extensive sacral pilonidal abscess, now s/p I&D by Dr. Eaton 11/22/18. Surg cx with MSSE, Enterococcus galinarium, and anaerobes. No fever, normal wbc. Given elisha-anal involvement, diverting ostomy done. Has completed 10 days of abx since her debridement, ok to stop. Will follow as needed at TCU.
[2018-12-04 11:41] LABS: Bedside Glucose 154 mg/dL (70-110)
[2018-12-04] MEDS: Tuberculin,Purif.prot.deriv. 50 TU/ML Vial 5 ML ID (11:51)
[2018-12-04] MEDS: Glucerna Shake 120 ML LIQUID PO ×2 (11:51→17:22)
[2018-12-04] MEDS: 0.9% NaCl Midline IV Flush IV (11:52)
[2018-12-04] MEDS: oxyCODONE 5 MG Tablet 10 MG PO (12:32)
[2018-12-04] MEDS: hydrOXYzine PAM 25 MG Capsule 50 MG PO (13:01)
[2018-12-04] MEDS: Ondansetron ODT 4 MG Tablet PO ×2 (13:16→19:48)
[2018-12-04 15:46] VITALS: BP 104/48; PULSE 54; RESP 20; TEMP 36.4; O2SAT 93
[2018-12-04 16:46] LABS: Bedside Glucose 135 mg/dL (70-110)
[2018-12-04 17:20] VITALS: BP 115/42; PULSE 58
[2018-12-04 17:22] VITALS: PULSE 58
[2018-12-04 21:06] LABS: Bedside Glucose 156 mg/dL (70-110)
[2018-12-04] MEDS: Latanoprost 0.005% 1 Bottle 1 DRP EACH EYE (21:10)
[2018-12-04] MEDS: Pramipexole Di-HCl 0.25 MG Tablet PO (21:11)
[2018-12-04] MEDS: Atorvastatin Calcium 80 MG Tablet PO (21:11)
[2018-12-05 06:21] LABS: Bedside Glucose 124 mg/dL (70-110)
[2018-12-05] MEDS: Losartan Potassium 25 MG Tablet PO (06:25)
[2018-12-05] MEDS: Citalopram 20 MG Tablet PO (06:25)
[2018-12-05] MEDS: Glucerna Shake 120 ML LIQUID PO ×4 (06:26→21:21)
[2018-12-05 06:27] VITALS: BP 139/60; PULSE 56
[2018-12-05] MEDS: Metoprolol Tartrate 25 MG Tablet PO (06:27)
[2018-12-05] MEDS: Furosemide 40 MG Tablet PO (06:27)
[2018-12-05] MEDS: Levothyroxine 175 MCG Tablet PO (06:28)
[2018-12-05] MEDS: Fenofibrate 48 MG Tablet PO (06:28)
[2018-12-05] MEDS: Senna Tablet 1 TABLET PO ×2 (06:28→16:45)
[2018-12-05] MEDS: Nystatin Powder 15gm Bottle 1 APPLIC TOPICAL ×2 (06:28→16:46)
[2018-12-05] MEDS: Enoxaparin 40 MG/0.4 ML Syringe SC (06:29)
[2018-12-05 06:53] VITALS: O2SAT 95
--- NOTE | 2018-12-05 10:00 | PCM.PN.RX ---
<Alex Chen D - Last Filed: 12/05/18 10:00> Progress Note - Pharmacy Subjective: TCU Admission Objective: Allergies adhesive tape Allergy (Unknown, Verified 11/22/18 08:41) Unknown azithromycin [From Zithromax] Allergy (Unknown, Verified 11/22/18 08:41) Unknown cephalexin [From Keflex] Allergy (Unknown, Verified 11/22/18 08:41) Unknown Current Medications Generic Name Dose Route Start Last Admin Trade Name Freq PRN Reason Stop Dose Admin Acetaminophen 1,000 mg 12/03/18 21:05 Tylenol PO Q6H PRN PRN MILD PAIN (1-310) Albuterol Sulfate 1.25 mg 12/03/18 21:07 Ventolin Aerosols INHALATION Q2H PRN SOB &/OR WHEEZING Aspirin 81 mg 12/04/18 08:00 12/04/18 09:19 Aspirin, Baby PO 81 mg DAILY@0800 KAYLIE Administration Atorvastatin Calcium 80 mg 12/03/18 22:00 12/04/18 21:11 Lipitor PO 80 mg QHS KAYLIE Administration Bisacodyl 10 mg 12/03/18 21:04 Dulcolax PO DAILY PRN Constipation Citalopram Hydrobromide 20 mg 12/04/18 06:00 12/05/18 06:25 Celexa PO 20 mg DAILY KAYLIE Administration Dextrose 0 gm 12/04/18 00:23 D50w Syringe IV X1 PRN Hypoglycemia Protocol Enoxaparin Sodium 40 mg 12/04/18 06:00 12/05/18 06:29 Lovenox SC 40 mg DAILY@0600 KAYLIE Administration Fenofibrate 48 mg 12/04/18 06:00 12/05/18 06:28 Tricor PO 48 mg DAILY KAYLIE Administration Furosemide 40 mg 12/04/18 06:00 12/05/18 06:27 Lasix PO 40 mg DAILY KAYLIE Administration Glucagon 1 mg 12/03/18 17:28 IM .X1 PRN Hypoglycemia Hydroxyzine Pamoate 50 mg 12/03/18 21:00 12/04/18 13:01 Vistaril Pamoate Capsule PO 50 mg 4X/DAY PRN PRN Administration ITCHING Sodium Chloride 250 mls @ 15 mls/hr 12/03/18 20:00 IV .[id number] PRN SALINE FLUSH Insulin Glargine 20 units 12/04/18 06:00 12/05/18 06:31 Lantus (Bkc) SC 20 units BID KAYLIE Administration Latanoprost 1 drop 12/03/18 22:00 12/04/18 21:10 Xalatan Opthalmic EACH EYE 1 drop QHS KAYLIE Administration Levothyroxine Sodium 175 mcg 12/04/18 06:00 12/05/18 06:28 Synthroid PO 175 mcg [id number] KAYLIE Administration Losartan Potassium 25 mg 12/04/18 06:00 12/05/18 06:25 Cozaar PO 25 mg DAILY KAYLIE Administration Metformin HCl 500 mg 12/04/18 08:00 12/04/18 17:23 Glucophage PO 500 mg BIDCM KAYLIE Administration Metoprolol Tartrate 25 mg 12/03/18 18:00 12/05/18 06:27 Lopressor (Beta Jorge) PO 25 mg BID KAYLIE Administration Nutritional Formula 1 packet 12/04/18 08:00 12/04/18 17:22 Juice - [place] Flavor PO 1 packet BIDCM KAYLIE Administration Nutritional Formula (Lactose Free) 120 ml 12/03/18 22:00 12/05/18 06:26 Glucerna Shake PO 120 ml 4X/DAY KAYLIE Administration Nystatin 1 applic 12/03/18 18:00 12/05/18 06:28 Mycostatin Powder TOPICAL 1 applic BID KAYLIE Administration Protocol Ondansetron HCl 4 mg 12/04/18 13:08 12/04/18 19:48 Zofran Odt PO 4 mg Q6H PRN Administration NAUSEA Oxycodone HCl 10 mg 12/03/18 21:07 12/04/18 12:32 Oxyir PO 10 mg Q4H PRN PRN Administration MODERATE PAIN (4-5/10) Polyethylene Glycol 17 gm 12/04/18 06:00 12/05/18 06:28 Miralax PO Not Given DAILY [facility] Polysaccharide Iron Complex 150 mg 12/04/18 08:00 12/04/18 09:19 Ferrex 150 PO 150 mg DAILYCM [facility] Administration Potassium Chloride 20 meq 12/04/18 08:00 12/04/18 09:19 K-Dur PO 20 meq 0800 KAYLIE Administration Pramipexole Dihydrochloride 0.25 mg 12/03/18 22:00 12/04/18 21:11 Mirapex PO 0.25 mg QHS KAYLIE Administration Senna 1 tablet 12/04/18 06:00 12/05/18 06:28 Senokot PO 1 tablet BID KAYLIE Administration Sodium Chloride 10 - 20 ml 12/03/18 20:00 12/04/18 11:52 IV 10 ml UD PRN Administration Midline Flush Tuberculin PPD 5 tu 12/11/18 10:00 Tubersol, Aplisol, Ppd ID 12/11/18 10:01 X1 ONE Problem List (Last Reviewed 11/27/18 @ 15:09 by Eula Tirado PA-C) GERD (gastroesophageal reflux disease) (Chronic) Anxiety (Chronic) Low back pain (Chronic) Diabetes mellitus (Chronic) Anemia (Chronic) Asthma (Chronic) Carpal tunnel syndrome (Chronic) Cataracts, bilateral (Chronic) Chronic pneumonia (Chronic) Glaucoma (Chronic) Hearing loss (Chronic) Hyperlipidemia (Chronic) Neuropathy (Chronic) Osteoarthritis (Chronic) Acute respiratory failure (Acute) Pilonidal cyst (Acute) NSTEMI (non-ST elevated myocardial infarction) (Acute) Coronary artery disease (Chronic) Vital Signs Temp Pulse Resp BP Pulse Ox 97.5 F L 56 L 20 H 139/60 H 93 12/04/18 15:46 12/05/18 06:27 12/04/18 15:46 12/05/18 06:27 12/04/18 15:46 Oxygen Flow Rate (L/min) 4 Oxygen Delivery Method Room Air Weight: 102.285 kg Body Mass Index (BMI) 40.0 Finger Stick Blood Glucose 202 Sodium 139 mmol/L (136-145) 12/04/18 05:15 Potassium 4.0 mmol/L (3.5-5.1) 12/04/18 05:15 Chloride 104 mmol/L (98-107) 12/04/18 05:15 Carbon Dioxide 30.0 mmol/L (21.0-32.0) 12/04/18 05:15 Anion Gap 5 (5-15) 12/04/18 05:15 BUN 11 mg/dL (7-18) 12/04/18 05:15 Creatinine 0.38 mg/dL (0.55-1.02) L 12/04/18 05:15 Est GFR (MDRD) Af Amer 215 mL/min (>60) 12/04/18 05:15 Est GFR (MDRD) Non-Af 178 mL/min (>60) 12/04/18 05:15 BUN/Creatinine Ratio 29.1 RATIO (10-20) H 12/04/18 05:15 Glucose 115 mg/dL (74-106) H 12/04/18 05:15 Assessment/Plan: 1) Pain APAP for mild pain, oxycodone for moderate pain. Continue to monitor prn medication use, daily pain scores. 2) CAD/Edema ASA, atorvastatin, fenofibrate, furosemide/KCL, losartan, metoprolol. Continue to monitor lipids, BP/HR, renal function, electrolytes, for chest pain. * TG in range 418. Recommend to dc fenofibrate for lack of beneficial outcomes, tolerating statin, and risk of drug interactions. 3) DM2 Insulin glargine, metformin. Continue to monitor BGT, renal function, s/s hyper/hypoglycemia. 4) Nutrition Juice, Fe, Glucerna. Continue to monitor clinically. 5) Hypothyroidism Levothyroxine. Continue to monitor s/s hyper/hypothyroidism. 6) RLS Pramipexole at HS. Continue to monitor for restless legs. 7) Itching Hydroxyzine prn. Continue to monitor prn medication use. 8) DVT PPx Enoxaparin. Continue to monitor for bleeding/clot. Psychotropic Medications: 9) Depression Citalopram. Continue to monitor s/s depression. Unnecessary Medications: None Bowel Regimen: 10) Senna, PEG, prn bisacodyl. Continue to monitor prn medication use, for constipation/diarrhea. Date of Note:: 12/05/18 - Provider Comments Provider responsibility: Provider responsible to enter orders to implement recommendations <True Will Chi - Last Filed: 12/05/18 18:01> Progress Note - Pharmacy Subjective: [] Objective: Allergies adhesive tape Allergy (Unknown, Verified 11/22/18 08:41) Unknown azithromycin [From Zithromax] Allergy (Unknown, Verified 11/22/18 08:41) Unknown cephalexin [From Keflex] Allergy (Unknown, Verified 11/22/18 08:41) Unknown Current Medications Generic Name Dose Route Start Last Admin Trade Name Freq PRN Reason Stop Dose Admin Acetaminophen 1,000 mg 12/03/18 21:05 Tylenol PO Q6H PRN PRN MILD PAIN (1-3/10) Albuterol Sulfate 1.25 mg 12/03/18 21:07 Ventolin Aerosols INHALATION Q2H PRN SOB &/OR WHEEZING Aspirin 81 mg 12/04/18 08:00 12/05/18 10:03 Aspirin, Baby PO 81 mg DAILY@0800 KAYLIE Administration Atorvastatin Calcium 80 mg 12/03/18 22:00 12/04/18 21:11 Lipitor PO 80 mg QHS KAYLIE Administration Bisacodyl 10 mg 12/03/18 21:04 Dulcolax PO DAILY PRN Constipation Citalopram Hydrobromide 20 mg 12/04/18 06:00 12/05/18 06:25 Celexa PO 20 mg DAILY KAYLIE Administration Dextrose 0 gm 12/04/18 00:23 D50w Syringe IV X1 PRN Hypoglycemia Protocol Enoxaparin Sodium 40 mg 12/04/18 06:00 12/05/18 06:29 Lovenox SC 40 mg DAILY@0600 KAYLIE Administration Fenofibrate 48 mg 12/04/18 06:00 12/05/18 06:28 Tricor PO 48 mg DAILY KAYLIE Administration Furosemide 40 mg 12/04/18 06:00 12/05/18 06:27 Lasix PO 40 mg DAILY KAYLIE Administration Glucagon 1 mg 12/03/18 17:28 IM .X1 PRN Hypoglycemia Hydroxyzine Pamoate 50 mg 12/03/18 21:00 12/05/18 12:23 Vistaril Pamoate Capsule PO 50 mg 4X/DAY PRN PRN Administration ITCHING Sodium Chloride 250 mls @ 15 mls/hr 12/03/18 20:00 IV .[id number] PRN SALINE FLUSH Insulin Glargine 20 units 12/04/18 06:00 12/05/18 17:56 Lantus (Bkc) SC 20 units BID KAYLIE Administration Latanoprost 1 drop 12/03/18 22:00 12/04/18 21:10 Xalatan Opthalmic EACH EYE 1 drop QHS KAYLIE Administration Levothyroxine Sodium 175 mcg 12/04/18 06:00 12/05/18 06:28 Synthroid PO 175 mcg [id number] KAYLIE Administration Losartan Potassium 25 mg 12/04/18 06:00 12/05/18 06:25 Cozaar PO 25 mg DAILY KAYLIE Administration Metformin HCl 500 mg 12/04/18 08:00 12/05/18 16:45 Glucophage PO 500 mg BIDCM KAYLIE Administration Metoprolol Tartrate 25 mg 12/03/18 18:00 12/05/18 16:45 Lopressor (Beta Jorge) PO Not Given BID [facility] Nutritional Formula 1 packet 12/04/18 08:00 12/05/18 16:44 Juice - [place] Flavor PO 1 packet BIDCM [facility] Administration Nutritional Formula (Lactose Free) 120 ml 12/03/18 22:00 12/05/18 16:47 Glucerna Shake PO 120 ml 4X/DAY KAYLIE Administration Nystatin 1 applic 12/03/18 18:00 12/05/18 16:46 Mycostatin Powder TOPICAL 1 applic BID [facility] Administration Protocol Ondansetron HCl 4 mg 12/04/18 13:08 12/05/18 10:09 Zofran Odt PO 4 mg Q6H PRN Administration NAUSEA Oxycodone HCl 10 mg 12/03/18 21:07 12/05/18 16:43 Oxyir PO 10 mg Q4H PRN PRN Administration MODERATE PAIN (4-5/10) Polyethylene Glycol 17 gm 12/04/18 06:00 12/05/18 06:28 Miralax PO Not Given DAILY [facility] Polysaccharide Iron Complex 150 mg 12/04/18 08:00 12/05/18 10:04 [facility] Administration Potassium Chloride 20 meq 12/04/18 08:00 12/05/18 10:03 K-Dur PO 20 meq 0800 [facility] Administration Pramipexole Dihydrochloride 0.25 mg 12/03/18 22:00 12/04/18 21:11 Mirapex PO 0.25 mg QHS [facility] Administration Senna 1 tablet 12/04/18 06:00 12/05/18 16:45 Senokot PO 1 tablet BID [facility] Administration Sodium Chloride 10 - 20 ml 12/03/18 20:00 12/04/18 11:52 IV 10 ml UD PRN Administration Midline Flush Tuberculin PPD 5 tu 12/11/18 10:00 Tubersol, Aplisol, Ppd ID 12/11/18 10:01 X1 ONE Problem List (Last Reviewed 11/27/18 @ 15:09 by Eula Tirado PA-C) GERD (gastroesophageal reflux disease) (Chronic) Anxiety (Chronic) Low back pain (Chronic) Diabetes mellitus (Chronic) Anemia (Chronic) Asthma (Chronic) Carpal tunnel syndrome (Chronic) Cataracts, bilateral (Chronic) Chronic pneumonia (Chronic) Glaucoma (Chronic) Hearing loss (Chronic) Hyperlipidemia (Chronic) Neuropathy (Chronic) Osteoarthritis (Chronic) Acute respiratory failure (Acute) Pilonidal cyst (Acute) NSTEMI (non-ST elevated myocardial infarction) (Acute) Coronary artery disease (Chronic) Vital Signs Temp Pulse Resp BP Pulse Ox 98 F 62 18 92/45 L 97 12/05/18 16:00 12/05/18 16:45 12/05/18 16:00 12/05/18 16:45 12/05/18 16:00 Oxygen Flow Rate (L/min) 3 Oxygen Delivery Method Room Air Weight: 102.285 kg Body Mass Index (BMI) 40.0 Finger Stick Blood Glucose 202 Sodium 139 mmol/L (136-145) 12/04/18 05:15 Potassium 4.0 mmol/L (3.5-5.1) 12/04/18 05:15 Chloride 104 mmol/L (98-107) 12/04/18 05:15 Carbon Dioxide 30.0 mmol/L (21.0-32.0) 12/04/18 05:15 Anion Gap 5 (5-15) 12/04/18 05:15 BUN 11 mg/dL (7-18) 12/04/18 05:15 Creatinine 0.38 mg/dL (0.55-1.02) L 12/04/18 05:15 Est GFR (MDRD) Af Amer 215 mL/min (>60) 12/04/18 05:15 Est GFR (MDRD) Non-Af 178 mL/min (>60) 12/04/18 05:15 BUN/Creatinine Ratio 29.1 RATIO (10-20) H 12/04/18 05:15 Glucose 115 mg/dL (74-106) H 12/04/18 05:15 Assessment/Plan: Psychotropic Medications: Unnecessary Medications: Bowel Regimen: - Provider Comments Provider responsibility: Provider responsible to enter orders to implement recommendations Provider Comments to Recommendations by Pharmacy: Agree
[2018-12-05] MEDS: Aspirin 81 MG TAB.CHEW PO (10:03)
[2018-12-05] MEDS: Iron Polysaccharide Complex 150 MG CAPSULE PO (10:04)
[2018-12-05] MEDS: oxyCODONE 5 MG Tablet 10 MG PO ×2 (10:09→16:43)
[2018-12-05] MEDS: Ondansetron ODT 4 MG Tablet PO (10:09)
--- NOTE | 2018-12-05 10:23 | PHA.CONS_ITS ---
<Alex Chen D - Last Filed: 12/05/18 10:00> Progress Note - Pharmacy Subjective: TCU Admission Objective: Allergies adhesive tape Allergy (Unknown, Verified 11/22/18 08:41) Unknown azithromycin [From Zithromax] Allergy (Unknown, Verified 11/22/18 08:41) Unknown cephalexin [From Keflex] Allergy (Unknown, Verified 11/22/18 08:41) Unknown Current Medications Generic Name Dose Route Start Last Admin Trade Name Freq PRN Reason Stop Dose Admin Acetaminophen 1,000 mg 12/03/18 21:05 Tylenol PO Q6H PRN PRN MILD PAIN (1-310) Albuterol Sulfate 1.25 mg 12/03/18 21:07 Ventolin Aerosols INHALATION Q2H PRN SOB &/OR WHEEZING Aspirin 81 mg 12/04/18 08:00 12/04/18 09:19 Aspirin, Baby PO 81 mg DAILY@0800 KAYLIE Administration Atorvastatin Calcium 80 mg 12/03/18 22:00 12/04/18 21:11 Lipitor PO 80 mg QHS KAYLIE Administration Bisacodyl 10 mg 12/03/18 21:04 Dulcolax PO DAILY PRN Constipation Citalopram Hydrobromide 20 mg 12/04/18 06:00 12/05/18 06:25 Celexa PO 20 mg DAILY KAYLIE Administration Dextrose 0 gm 12/04/18 00:23 D50w Syringe IV X1 PRN Hypoglycemia Protocol Enoxaparin Sodium 40 mg 12/04/18 06:00 12/05/18 06:29 Lovenox SC 40 mg DAILY@0600 KAYLIE Administration Fenofibrate 48 mg 12/04/18 06:00 12/05/18 06:28 Tricor PO 48 mg DAILY KAYLIE Administration Furosemide 40 mg 12/04/18 06:00 12/05/18 06:27 Lasix PO 40 mg DAILY KAYLIE Administration Glucagon 1 mg 12/03/18 17:28 IM .X1 PRN Hypoglycemia Hydroxyzine Pamoate 50 mg 12/03/18 21:00 12/04/18 13:01 Vistaril Pamoate Capsule PO 50 mg 4X/DAY PRN PRN Administration ITCHING Sodium Chloride 250 mls @ 15 mls/hr 12/03/18 20:00 IV .[id number] PRN SALINE FLUSH Insulin Glargine 20 units 12/04/18 06:00 12/05/18 06:31 Lantus (Bkc) SC 20 units BID KAYLIE Administration Latanoprost 1 drop 12/03/18 22:00 12/04/18 21:10 Xalatan Opthalmic EACH EYE 1 drop QHS KAYLIE Administration Levothyroxine Sodium 175 mcg 12/04/18 06:00 12/05/18 06:28 Synthroid PO 175 mcg [id number]@[id number] KAYLIE Administration Losartan Potassium 25 mg 12/04/18 06:00 12/05/18 06:25 Cozaar PO 25 mg DAILY KAYLIE Administration Metformin HCl 500 mg 12/04/18 08:00 12/04/18 17:23 Glucophage PO 500 mg BIDCM KAYLIE Administration Metoprolol Tartrate 25 mg 12/03/18 18:00 12/05/18 06:27 Lopressor (Beta Jorge) PO 25 mg BID KAYLIE Administration Nutritional Formula 1 packet 12/04/18 08:00 12/04/18 17:22 Juice - [place] Flavor PO 1 packet BIDCM KAYLIE Administration Nutritional Formula (Lactose Free) 120 ml 12/03/18 22:00 12/05/18 06:26 Glucerna Shake PO 120 ml 4X/DAY KAYLIE Administration Nystatin 1 applic 12/03/18 18:00 12/05/18 06:28 Mycostatin Powder TOPICAL 1 applic BID KAYLIE Administration Protocol Ondansetron HCl 4 mg 12/04/18 13:08 12/04/18 19:48 Zofran Odt PO 4 mg Q6H PRN Administration NAUSEA Oxycodone HCl 10 mg 12/03/18 21:07 12/04/18 12:32 Oxyir PO 10 mg Q4H PRN PRN Administration MODERATE PAIN (4-5/10) Polyethylene Glycol 17 gm 12/04/18 06:00 12/05/18 06:28 Miralax PO Not Given DAILY [facility] Polysaccharide Iron Complex 150 mg 12/04/18 08:00 12/04/18 09:19 Ferrex 150 PO 150 mg DAILYCM [facility] Administration Potassium Chloride 20 meq 12/04/18 08:00 12/04/18 09:19 K-Dur PO 20 meq 0800 KAYLIE Administration Pramipexole Dihydrochloride 0.25 mg 12/03/18 22:00 12/04/18 21:11 Mirapex PO 0.25 mg QHS KAYLIE Administration Senna 1 tablet 12/04/18 06:00 12/05/18 06:28 Senokot PO 1 tablet BID KAYLIE Administration Sodium Chloride 10 - 20 ml 12/03/18 20:00 12/04/18 11:52 IV 10 ml UD PRN Administration Midline Flush Tuberculin PPD 5 tu 12/11/18 10:00 Tubersol, Aplisol, Ppd ID 12/11/18 10:01 X1 ONE Problem List (Last Reviewed 11/27/18 @ 15:09 by Eula Tirado PA-C) GERD (gastroesophageal reflux disease) (Chronic) Anxiety (Chronic) Low back pain (Chronic) Diabetes mellitus (Chronic) Anemia (Chronic) Asthma (Chronic) Carpal tunnel syndrome (Chronic) Cataracts, bilateral (Chronic) Chronic pneumonia (Chronic) Glaucoma (Chronic) Hearing loss (Chronic) Hyperlipidemia (Chronic) Neuropathy (Chronic) Osteoarthritis (Chronic) Acute respiratory failure (Acute) Pilonidal cyst (Acute) NSTEMI (non-ST elevated myocardial infarction) (Acute) Coronary artery disease (Chronic) Vital Signs Temp Pulse Resp BP Pulse Ox 97.5 F L 56 L 20 H 139/60 H 93 12/04/18 15:46 12/05/18 06:27 12/04/18 15:46 12/05/18 06:27 12/04/18 15:46 Oxygen Flow Rate (L/min) 4 Oxygen Delivery Method Room Air Weight: 102.285 kg Body Mass Index (BMI) 40.0 Finger Stick Blood Glucose 202 Sodium 139 mmol/L (136-145) 12/04/18 05:15 Potassium 4.0 mmol/L (3.5-5.1) 12/04/18 05:15 Chloride 104 mmol/L (98-107) 12/04/18 05:15 Carbon Dioxide 30.0 mmol/L (21.0-32.0) 12/04/18 05:15 Anion Gap 5 (5-15) 12/04/18 05:15 BUN 11 mg/dL (7-18) 12/04/18 05:15 Creatinine 0.38 mg/dL (0.55-1.02) L 12/04/18 05:15 Est GFR (MDRD) Af Amer 215 mL/min (>60) 12/04/18 05:15 Est GFR (MDRD) Non-Af 178 mL/min (>60) 12/04/18 05:15 BUN/Creatinine Ratio 29.1 RATIO (10-20) H 12/04/18 05:15 Glucose 115 mg/dL (74-106) H 12/04/18 05:15 Assessment/Plan: 1) Pain APAP for mild pain, oxycodone for moderate pain. Continue to monitor prn medication use, daily pain scores. 2) CAD/Edema ASA, atorvastatin, fenofibrate, furosemide/KCL, losartan, metoprolol. Continue to monitor lipids, BP/HR, renal function, electrolytes, for chest pain. * TG in range 418. Recommend to dc fenofibrate for lack of beneficial outcomes, tolerating statin, and risk of drug interactions. 3) DM2 Insulin glargine, metformin. Continue to monitor BGT, renal function, s/s hyper/hypoglycemia. 4) Nutrition Juice, Fe, Glucerna. Continue to monitor clinically. 5) Hypothyroidism Levothyroxine. Continue to monitor s/s hyper/hypothyroidism. 6) RLS Pramipexole at HS. Continue to monitor for restless legs. 7) Itching Hydroxyzine prn. Continue to monitor prn medication use. 8) DVT PPx Enoxaparin. Continue to monitor for bleeding/clot. Psychotropic Medications: 9) Depression Citalopram. Continue to monitor s/s depression. Unnecessary Medications: None Bowel Regimen: 10) Senna, PEG, prn bisacodyl. Continue to monitor prn medication use, for constipation/diarrhea. Date of Note:: 12/05/18 - Provider Comments Provider responsibility: Provider responsible to enter orders to implement recommendations <True Will Chi - Last Filed: 12/05/18 18:01> Progress Note - Pharmacy Subjective: [] Objective: Allergies adhesive tape Allergy (Unknown, Verified 11/22/18 08:41) Unknown azithromycin [From Zithromax] Allergy (Unknown, Verified 11/22/18 08:41) Unknown cephalexin [From Keflex] Allergy (Unknown, Verified 11/22/18 08:41) Unknown Current Medications Generic Name Dose Route Start Last Admin Trade Name Freq PRN Reason Stop Dose Admin Acetaminophen 1,000 mg 12/03/18 21:05 Tylenol PO Q6H PRN PRN MILD PAIN (1-3/10) Albuterol Sulfate 1.25 mg 12/03/18 21:07 Ventolin Aerosols INHALATION Q2H PRN SOB &/OR WHEEZING Aspirin 81 mg 12/04/18 08:00 12/05/18 10:03 Aspirin, Baby PO 81 mg DAILY@0800 KAYLIE Administration Atorvastatin Calcium 80 mg 12/03/18 22:00 12/04/18 21:11 Lipitor PO 80 mg QHS KAYLIE Administration Bisacodyl 10 mg 12/03/18 21:04 Dulcolax PO DAILY PRN Constipation Citalopram Hydrobromide 20 mg 12/04/18 06:00 12/05/18 06:25 Celexa PO 20 mg DAILY KAYLIE Administration Dextrose 0 gm 12/04/18 00:23 D50w Syringe IV X1 PRN Hypoglycemia Protocol Enoxaparin Sodium 40 mg 12/04/18 06:00 12/05/18 06:29 Lovenox SC 40 mg DAILY@0600 KAYLIE Administration Fenofibrate 48 mg 12/04/18 06:00 12/05/18 06:28 Tricor PO 48 mg DAILY KAYLIE Administration Furosemide 40 mg 12/04/18 06:00 12/05/18 06:27 Lasix PO 40 mg DAILY KAYLIE Administration Glucagon 1 mg 12/03/18 17:28 IM .X1 PRN Hypoglycemia Hydroxyzine Pamoate 50 mg 12/03/18 21:00 12/05/18 12:23 Vistaril Pamoate Capsule PO 50 mg 4X/DAY PRN PRN Administration ITCHING Sodium Chloride 250 mls @ 15 mls/hr 12/03/18 20:00 IV .[id number] PRN SALINE FLUSH Insulin Glargine 20 units 12/04/18 06:00 12/05/18 17:56 Lantus (Bkc) SC 20 units BID KAYLIE Administration Latanoprost 1 drop 12/03/18 22:00 12/04/18 21:10 Xalatan Opthalmic EACH EYE 1 drop QHS KAYLIE Administration Levothyroxine Sodium 175 mcg 12/04/18 06:00 12/05/18 06:28 Synthroid PO 175 mcg [id number]@0600 KAYLIE Administration Losartan Potassium 25 mg 12/04/18 06:00 12/05/18 06:25 Cozaar PO 25 mg DAILY KAYLIE Administration Metformin HCl 500 mg 12/04/18 08:00 12/05/18 16:45 Glucophage PO 500 mg BIDCM KAYLIE Administration Metoprolol Tartrate 25 mg 12/03/18 18:00 12/05/18 16:45 Lopressor (Beta Jorge) PO Not Given BID [facility] Nutritional Formula 1 packet 12/04/18 08:00 12/05/18 16:44 Juice - [place] Flavor PO 1 packet BIDCM [facility] Administration Nutritional Formula (Lactose Free) 120 ml 12/03/18 22:00 12/05/18 16:47 Glucerna Shake PO 120 ml 4X/DAY KAYLIE Administration Nystatin 1 applic 12/03/18 18:00 12/05/18 16:46 Mycostatin Powder TOPICAL 1 applic BID [facility] Administration Protocol Ondansetron HCl 4 mg 12/04/18 13:08 12/05/18 10:09 Zofran Odt PO 4 mg Q6H PRN Administration NAUSEA Oxycodone HCl 10 mg 12/03/18 21:07 12/05/18 16:43 Oxyir PO 10 mg Q4H PRN PRN Administration MODERATE PAIN (4-5/10) Polyethylene Glycol 17 gm 12/04/18 06:00 12/05/18 06:28 Miralax PO Not Given DAILY [facility] Polysaccharide Iron Complex 150 mg 12/04/18 08:00 12/05/18 10:04 [facility] Administration Potassium Chloride 20 meq 12/04/18 08:00 12/05/18 10:03 K-Dur PO 20 meq 0800 [facility] Administration Pramipexole Dihydrochloride 0.25 mg 12/03/18 22:00 12/04/18 21:11 Mirapex PO 0.25 mg QHS [facility] Administration Senna 1 tablet 12/04/18 06:00 12/05/18 16:45 Senokot PO 1 tablet BID [facility] Administration Sodium Chloride 10 - 20 ml 12/03/18 20:00 12/04/18 11:52 IV 10 ml UD PRN Administration Midline Flush Tuberculin PPD 5 tu 12/11/18 10:00 Tubersol, Aplisol, Ppd ID 12/11/18 10:01 X1 ONE Problem List (Last Reviewed 11/27/18 @ 15:09 by Eula Tirado PA-C) GERD (gastroesophageal reflux disease) (Chronic) Anxiety (Chronic) Low back pain (Chronic) Diabetes mellitus (Chronic) Anemia (Chronic) Asthma (Chronic) Carpal tunnel syndrome (Chronic) Cataracts, bilateral (Chronic) Chronic pneumonia (Chronic) Glaucoma (Chronic) Hearing loss (Chronic) Hyperlipidemia (Chronic) Neuropathy (Chronic) Osteoarthritis (Chronic) Acute respiratory failure (Acute) Pilonidal cyst (Acute) NSTEMI (non-ST elevated myocardial infarction) (Acute) Coronary artery disease (Chronic) Vital Signs Temp Pulse Resp BP Pulse Ox 98 F 62 18 92/45 L 97 12/05/18 16:00 12/05/18 16:45 12/05/18 16:00 12/05/18 16:45 12/05/18 16:00 Oxygen Flow Rate (L/min) 3 Oxygen Delivery Method Room Air Weight: 102.285 kg Body Mass Index (BMI) 40.0 Finger Stick Blood Glucose 202 Sodium 139 mmol/L (136-145) 12/04/18 05:15 Potassium 4.0 mmol/L (3.5-5.1) 12/04/18 05:15 Chloride 104 mmol/L (98-107) 12/04/18 05:15 Carbon Dioxide 30.0 mmol/L (21.0-32.0) 12/04/18 05:15 Anion Gap 5 (5-15) 12/04/18 05:15 BUN 11 mg/dL (7-18) 12/04/18 05:15 Creatinine 0.38 mg/dL (0.55-1.02) L 12/04/18 05:15 Est GFR (MDRD) Af Amer 215 mL/min (>60) 12/04/18 05:15 Est GFR (MDRD) Non-Af 178 mL/min (>60) 12/04/18 05:15 BUN/Creatinine Ratio 29.1 RATIO (10-20) H 12/04/18 05:15 Glucose 115 mg/dL (74-106) H 12/04/18 05:15 Assessment/Plan: Psychotropic Medications: Unnecessary Medications: Bowel Regimen: - Provider Comments Provider responsibility: Provider responsible to enter orders to implement recommendations Provider Comments to Recommendations by Pharmacy: Agree
[2018-12-05 11:30] LABS: Bedside Glucose 168 mg/dL (70-110)
[2018-12-05] MEDS: hydrOXYzine PAM 25 MG Capsule 50 MG PO ×2 (12:23→21:21)
--- NOTE | 2018-12-05 15:07 | NURSING ---
wound photo: sacrum
[2018-12-05 16:00] VITALS: BP 92/45; PULSE 62; RESP 18; TEMP 36.6; O2SAT 97
[2018-12-05 16:45] VITALS: BP 92/45; PULSE 62
[2018-12-05 17:01] LABS: Bedside Glucose 126 mg/dL (70-110)
--- NOTE | 2018-12-05 18:03 | NURSING ---
New order to d/c fenofibrate
[2018-12-05] MEDS: Latanoprost 0.005% 1 Bottle 1 DRP EACH EYE (21:16)
[2018-12-05 21:21] LABS: Bedside Glucose 155 mg/dL (70-110)
[2018-12-05] MEDS: Atorvastatin Calcium 80 MG Tablet PO (21:21)
[2018-12-05] MEDS: Acetaminophen 500 MG Tablet 1000 MG PO (21:21)
[2018-12-05] MEDS: Pramipexole Di-HCl 0.25 MG Tablet PO (21:21)
[2018-12-05] MEDS: 0.9% NaCl Midline IV Flush IV (21:22)
--- NOTE | 2018-12-05 22:59 | PCM.PN.SRG ---
Patient Problems: Active and Suspected Problems (Last Reviewed 11/27/18 @ 15:09 by Eula Tirado PA-C) Acute respiratory failure (Acute) Pilonidal cyst (Acute) NSTEMI (non-ST elevated myocardial infarction) (Acute) Subjective: Postop #13 Patient is known to me. She went to surgery on 11/22/18 where she underwent surgical preparation bilateral perianal areas with excision hidradenitis (162.5 cm2) and excision extensive, complicated pilonidal cyst abscess (75 cm2). Operative cultures showed Staphylococcus epidermidis, Enterococcus gallinarum, and Anaerobic cocci. She was placed on Unasyn. Because of the proximity to her anal opening, she underwent a diverting colostomy on 11/30/18. She was discharged to TCU for strengthening and ambulation. After the colostomy was done, the VAC was placed. - Physical Exam General: Alert, Oriented x3 HEENT: PERRLA, EOMI Oral: Moist Mucosa Neck: Supple Abdomen: Soft, Non-Distended Skin: Ulcer/ Wound - bilateral perianal and sacral wounds are stable. VAC in place. Minimal drainage in the canister. Neurological: Cranial nerves II-XII grossly intact Psych/Mental Status: Normal Affect, Appropriate Vital Signs Temp Pulse Resp BP Pulse Ox 98 F 62 18 92/45 L 97 12/05/18 16:00 12/05/18 16:45 12/05/18 16:00 12/05/18 16:45 12/05/18 16:00 Oxygen Flow Rate (L/min) 3 Oxygen Delivery Method Room Air Weight: 225 lb 7.997 oz Body Mass Index (BMI) 40.0 Finger Stick Blood Glucose 202 Intake and Output for Last 24 Hours 12/03/18 12/04/18 12/05/18 23:59 23:59 23:59 Intake Total 240 / 240 920 / 920 540 / 540 Output Total 950 / 950 3800 / 3800 1700 / 1700 Balance -710 / -710 -2880 / -2880 -1160 / -1160 POC Glucose 12/05/18 12/05/18 12/05/18 21:15 16:53 11:27 POC Glucose 155 H 126 H 168 H 12/05/18 06:15 POC Glucose 124 H Medical Necessity - Tobacco Use Smoking Status: Former smoker Tobacco Use: Non-smoker Assessment/Plan All Active Problems (Last Reviewed 11/27/18 @ 15:09 by Eula Tirado PA-C) Acute respiratory failure (Acute) Pilonidal cyst (Acute) NSTEMI (non-ST elevated myocardial infarction) (Acute) Open wound of sacroiliac region with complication (Acute) Open wound of buttock (Acute) Elevated troponin (Acute) 1. Hidradenitis bilateral perianal areas. 2. Extensive, complicated pilonidal cyst abscess. 3. Former smoker. 4. s/p surgical preparation bilateral perianal areas with excision hidradenitis (162.5 cm2) and excision extensive, complicated pilonidal cyst abscess (75 cm2). 5. Anemia of chronic disease, acute on chronic. 6. s/p diverting colostomy. Continue the VAC to be changed three times per week at 150 mmHg continuous suction. Prealbumin was 13.7 on 11/23/18. Encourage nutritional supplementation with protein to help the healing process. Operative cultures showed Staphylococcus epidermidis, Enterococcus gallinarum, and Anaerobic cocci. She is currently on Unasyn. Hgb has improved to 9.2. Patient has anemia of chronic disease, acute on chronic. No active bleeding noted. Continue Iron supplementation. At discharge, may followup at [facility]. If there is a plateau in the healing process, can proceed with delayed closure with skin grafting.
[2018-12-06] MEDS: Glucerna Shake 120 ML LIQUID PO ×4 (06:15→20:13)
[2018-12-06] MEDS: Nystatin Powder 15gm Bottle 1 APPLIC TOPICAL ×2 (06:16→17:32)
[2018-12-06] MEDS: Citalopram 20 MG Tablet PO (06:16)
[2018-12-06] MEDS: Enoxaparin 40 MG/0.4 ML Syringe SC (06:16)
[2018-12-06] MEDS: Senna Tablet 1 TABLET PO ×2 (06:16→17:30)
[2018-12-06] MEDS: Levothyroxine 175 MCG Tablet PO (06:16)
[2018-12-06 06:34] VITALS: O2SAT 97
[2018-12-06 06:51] LABS: Bedside Glucose 92 mg/dL (70-110)
[2018-12-06] MEDS: Aspirin 81 MG TAB.CHEW PO (08:13)
[2018-12-06] MEDS: Iron Polysaccharide Complex 150 MG CAPSULE PO (08:14)
[2018-12-06] MEDS: Furosemide 40 MG Tablet PO (08:16)
--- NOTE | 2018-12-06 09:09 | NURSING ---
night warehouse selector RN reported lower BP's especially of diastolic #. pt c/o feeling more tired. New order to hold cozaar & lopressor this am, give lasix, but decreased lopressor.
[2018-12-06] MEDS: Ondansetron ODT 4 MG Tablet PO (10:49)
[2018-12-06 11:00] LABS: Bedside Glucose 137 mg/dL (70-110)
[2018-12-06 15:19] VITALS: BP 122/55; PULSE 63; RESP 16; TEMP 37; O2SAT 95
[2018-12-06 16:41] LABS: Bedside Glucose 144 mg/dL (70-110)
[2018-12-06] MEDS: oxyCODONE 5 MG Tablet 10 MG PO (17:26)
[2018-12-06 17:28] VITALS: BP 122/55; PULSE 63
[2018-12-06] MEDS: Metoprolol Tartrate 25 MG Tablet 12.5 MG PO (17:28)
--- NOTE | 2018-12-06 18:43 | NURSING ---
pt c/o nausea and stomach cramps, new order for mylicon
[2018-12-06] MEDS: Atorvastatin Calcium 80 MG Tablet PO (20:12)
[2018-12-06] MEDS: Pramipexole Di-HCl 0.25 MG Tablet PO (20:12)
[2018-12-06] MEDS: Latanoprost 0.005% 1 Bottle 1 DRP EACH EYE (20:15)
[2018-12-06 21:06] LABS: Bedside Glucose 172 mg/dL (70-110)
[2018-12-07 00:36] LABS: Bedside Glucose 93 mg/dL (70-110)
[2018-12-07] MEDS: Enoxaparin 40 MG/0.4 ML Syringe SC (06:21)
[2018-12-07] MEDS: Furosemide 40 MG Tablet PO (06:21)
[2018-12-07] MEDS: Citalopram 20 MG Tablet PO (06:21)
[2018-12-07] MEDS: Levothyroxine 175 MCG Tablet PO (06:22)
[2018-12-07] MEDS: Senna Tablet 1 TABLET PO ×2 (06:22→16:55)
[2018-12-07] MEDS: Glucerna Shake 120 ML LIQUID PO ×3 (06:25→20:41)
[2018-12-07] MEDS: Nystatin Powder 15gm Bottle 1 APPLIC TOPICAL ×2 (06:28→16:55)
[2018-12-07 06:29] VITALS: BP 129/44; PULSE 59
[2018-12-07 06:36] LABS: Bedside Glucose 89 mg/dL (70-110)
[2018-12-07 07:43] VITALS: O2SAT 95
[2018-12-07] MEDS: Iron Polysaccharide Complex 150 MG CAPSULE PO (08:12)
[2018-12-07] MEDS: Aspirin 81 MG TAB.CHEW PO (08:12)
[2018-12-07 08:13] VITALS: PULSE 60
[2018-12-07] MEDS: Metoprolol Tartrate 25 MG Tablet 12.5 MG PO ×2 (08:13→16:56)
[2018-12-07] MEDS: Ondansetron ODT 4 MG Tablet PO (09:18)
--- NOTE | 2018-12-07 09:57 | PCA ---
Family brought food
--- NOTE | 2018-12-07 10:07 | NURSING ---
Addendum entered by Catherine Kingston 12/07/18 15:35: R' RESTING IN BED AT THIS TIME ON RIGHT SIDE. DENIES CP/DIZZINESS/SOB. DOES STATE SHE FEEL WEAK. HR SLIGHTLY IRREGULAR, 74BPM, SPO2 96% ON 3L NC. C/O SLIGHT NAUSEA, MYLICON GIVEN PER REQUEST. R' IS NOT DIAPHORETIC OR CLAMMY. AT BEDSIDE. Original Note: Addendum entered by Catherine Kingston 12/07/18 15:11: DR. MARTIN REVIEWED CXR, EKG. STATES TO ENCOURAGE I.S. F/U WITH GENERAL MILLING SUPERINTENDENT 12/11 AT 1100. QUESTIONABLE AFIB. STARTED ON ELIQUIS. TROPONIN NEGATIVE. Original Note: Patient working with physical therapy in chair doing leg raises. Patient became cold, diaphoretic, dizzy and stated she just did not feel right. BS 130. BP: 119/62. Pulse 89. Pulse ox: 99 on 3L of O2. Respirations 20. Lung sounds diminished and apical irregular. Respiratory called for a STAT EKG and Dr. Martin paged.
--- NOTE | 2018-12-07 10:10 | EKG12_ITS ---
Test Reason : DIZZINESS Blood Pressure : / mmHG Vent. Rate : 065 BPM Atrial Rate : 065 BPM P-R Int : 164 ms QRS Dur : 098 ms QT Int : 408 ms P-R-T Axes : -22 000 -43 degrees QTc Int : 424 ms Sinus rhythm with Premature atrial complexes Nonspecific T wave abnormality Abnormal ECG Confirmed by DORA PITTMAN, GI ([id number]), photo editor MARYANNE TIJERINA ([id number]) on 12/11/2018 2:07:12 PM Referred By: True Will Confirmed By:GI JOHN MD
--- NOTE | 2018-12-07 10:15 | RAD_ITS ---
STUDY: X-RAY CHEST REASON FOR EXAM: Female, 73 years old. Short of breath. Diaphoresis. Coccygeal wound. TECHNIQUE: Single portable crosswise frontal chest. COMPARISON: Portable chest November 24, 2018. FINDINGS: Again seen are stable, subtle mixed densities within both lung bases adjacent to the hemidiaphragms. There is subtle blunting of the left costophrenic angle. There is no pneumothorax. The cardiomediastinal silhouette appears stable and unremarkable for a partially rotated frontal technique. There is no acute osseous abnormality. There is no demonstrated abnormality of the visualized soft tissue structures of the upper abdomen. RAD/Chest 1 View (Portable) IMPRESSION: Mild bibasilar atelectasis versus early pneumonitis. Potential small left basilar pleural effusion. No pneumothorax. Electronically Signed: Jesus Perry MD at 11:17 EDT , Service support ,
[2018-12-07 11:51] LABS: Bedside Glucose 119 mg/dL (70-110)
--- NOTE | 2018-12-07 14:54 | NURSING ---
Colostomy appliance removed. stoma sits just above skin level and is dark pink in color. peristomal skin is intact. cleansed with warm water. pat dry. applied a new 2 piece flat Fredo appliance with a small amount of stoma paste. pt tolerated well.
[2018-12-07 15:08] VITALS: BP 104/42; PULSE 66; RESP 18; TEMP 37.1; O2SAT 92
[2018-12-07] MEDS: oxyCODONE 5 MG Tablet 10 MG PO (15:29)
[2018-12-07] MEDS: 0.9% NaCl Midline IV Flush IV ×2 (15:31→20:41)
[2018-12-07 16:40] LABS: Bedside Glucose 129 mg/dL (70-110)
[2018-12-07 16:56] VITALS: PULSE 66
[2018-12-07] MEDS: APIXABAN 5 MG TABLET PO (16:56)
[2018-12-07] MEDS: Latanoprost 0.005% 1 Bottle 1 DRP EACH EYE (20:44)
[2018-12-07] MEDS: Pramipexole Di-HCl 0.25 MG Tablet PO (20:45)
[2018-12-07] MEDS: Atorvastatin Calcium 80 MG Tablet PO (20:45)
[2018-12-07 20:46] LABS: Bedside Glucose 177 mg/dL (70-110)
[2018-12-08] MEDS: Citalopram 20 MG Tablet PO (06:20)
[2018-12-08] MEDS: Furosemide 40 MG Tablet PO (06:20)
[2018-12-08] MEDS: APIXABAN 5 MG TABLET PO ×2 (06:20→17:31)
[2018-12-08] MEDS: Senna Tablet 1 TABLET PO ×2 (06:21→17:31)
[2018-12-08] MEDS: Nystatin Powder 15gm Bottle 1 APPLIC TOPICAL ×2 (06:22→17:33)
[2018-12-08 06:24] VITALS: BP 114/48; PULSE 62
[2018-12-08] MEDS: Glucerna Shake 120 ML LIQUID PO ×3 (06:24→17:29)
[2018-12-08] MEDS: Metoprolol Tartrate 25 MG Tablet 12.5 MG PO ×2 (06:24→17:31)
[2018-12-08] MEDS: Iron Polysaccharide Complex 150 MG CAPSULE PO (08:25)
[2018-12-08] MEDS: Aspirin 81 MG TAB.CHEW PO (08:25)
[2018-12-08 09:41] LABS: Bedside Glucose 145 mg/dL (70-110)
[2018-12-08] MEDS: Ondansetron ODT 4 MG Tablet PO (10:44)
[2018-12-08] MEDS: oxyCODONE 5 MG Tablet 10 MG PO (10:47)
[2018-12-08 11:35] LABS: Bedside Glucose 177 mg/dL (70-110)
--- NOTE | 2018-12-08 13:37 | PCA ---
Patients brought in lunch to patient, suzanne roast beef sandwhich and a small sabrina. milk jug
[2018-12-08 15:54] VITALS: BP 112/40; PULSE 60; RESP 16; TEMP 37.2; O2SAT 95
[2018-12-08 17:01] LABS: Bedside Glucose 163 mg/dL (70-110)
[2018-12-08 17:31] VITALS: BP 112/40; PULSE 60
[2018-12-08] MEDS: Latanoprost 0.005% 1 Bottle 1 DRP EACH EYE (20:21)
[2018-12-08] MEDS: Atorvastatin Calcium 80 MG Tablet PO (20:23)
[2018-12-08] MEDS: Pramipexole Di-HCl 0.25 MG Tablet PO (20:23)
[2018-12-08] MEDS: 0.9% NaCl Midline IV Flush IV (20:25)
[2018-12-08 21:01] LABS: Bedside Glucose 178 mg/dL (70-110)
[2018-12-09] MEDS: Ondansetron ODT 4 MG Tablet PO ×2 (00:28→14:07)
[2018-12-09] MEDS: oxyCODONE 5 MG Tablet 10 MG PO ×2 (03:53→20:05)
[2018-12-09 05:19] VITALS: BP 124/45; PULSE 60
[2018-12-09] MEDS: Citalopram 20 MG Tablet PO (05:19)
[2018-12-09] MEDS: APIXABAN 5 MG TABLET PO ×2 (05:19→17:44)
[2018-12-09] MEDS: Furosemide 40 MG Tablet PO (05:19)
[2018-12-09] MEDS: Metoprolol Tartrate 25 MG Tablet 12.5 MG PO ×2 (05:19→17:45)
[2018-12-09] MEDS: Glucerna Shake 120 ML LIQUID PO ×4 (05:20→20:03)
[2018-12-09] MEDS: Nystatin Powder 15gm Bottle 1 APPLIC TOPICAL ×2 (05:21→17:07)
[2018-12-09] MEDS: Senna Tablet 1 TABLET PO ×2 (05:22→17:45)
[2018-12-09 06:40] LABS: Bedside Glucose 147 mg/dL (70-110)
[2018-12-09 07:30] VITALS: O2SAT 97
--- NOTE | 2018-12-09 07:33 | NURSING ---
Pt c/o of right ear pain this AM. Pt informed this nurse she sometimes goes deaf in her right ear for two to three months then her hearing returns. Pt informed RN she usually wears a hearing aide to right ear. Pt also c/o sore throat. Will update Dr Will.
[2018-12-09] MEDS: Iron Polysaccharide Complex 150 MG CAPSULE PO (07:43)
[2018-12-09] MEDS: Aspirin 81 MG TAB.CHEW PO (07:43)
--- NOTE | 2018-12-09 07:51 | NURSING ---
RN attempted to reposition pt, pt refused. Pt informed RN she prefers to lye on her right side because it is discomforting to lye on left side. Wound vac to coccyx. Pt education on the importance to rotate side to prevent skin break down and pressure injuries from forming. Pt agreeable to turn onto left side. Pt medicated prior to being turned to left side. Pt's rt lateral side noted to be red. Pt called out to nurses station after being on left side for ten minutes and requested to be repositioned back on to her right side because her back hurt. Pt reeducated on importance of giving the right side time free of pressure, pt continued to request to be turned to right side. Will continue to encourage pt to turn to left side and give right side a break to prevent skin break down.
[2018-12-09 11:31] LABS: Bedside Glucose 167 mg/dL (70-110)
[2018-12-09] MEDS: 0.9% NaCl Midline IV Flush IV ×2 (11:45→22:53)
[2018-12-09 14:14] VITALS: BP 125/60; PULSE 89; RESP 14; TEMP 36.7; O2SAT 96
[2018-12-09 16:56] LABS: Bedside Glucose 151 mg/dL (70-110)
[2018-12-09 17:45] VITALS: BP 125/60; PULSE 89
[2018-12-09] MEDS: Mag Hydrox/Al Hydrox/Simeth 30 ML UDC PO (18:04)
--- NOTE | 2018-12-09 18:06 | NURSING ---
Pt stating that the Zofran she took earlier didn't help. States she takes Mylanta at home and would like some with dinner. Dr. Will updated and N.O. received. Pt refused crackers and randy ira. Eating dinner with at bedside, cont to monitor.
[2018-12-09] MEDS: hydrOXYzine PAM 25 MG Capsule 50 MG PO (20:04)
[2018-12-09] MEDS: Latanoprost 0.005% 1 Bottle 1 DRP EACH EYE (20:07)
[2018-12-09] MEDS: Pramipexole Di-HCl 0.25 MG Tablet PO (20:08)
[2018-12-09] MEDS: Atorvastatin Calcium 80 MG Tablet PO (20:08)
[2018-12-09 21:21] LABS: Bedside Glucose 223 mg/dL (70-110)
--- NOTE | 2018-12-09 21:24 | NURSING ---
Addendum entered by Aye Castellanos 12/10/18 06:15: Pt refused to turn off right side during shift. Pt encouraged multiple times. Original Note: Pt refusing to turn onto left side. Education provided, pt continues to refuse. Will continue to encourage.
[2018-12-09 22:50] LABS: Bedside Glucose 188 mg/dL (70-110)
[2018-12-10] MEDS: oxyCODONE 5 MG Tablet 10 MG PO ×3 (03:05→17:47)
--- NOTE | 2018-12-10 04:00 | NURSING ---
Pt c/o burning with urinary, urine cloudy and foul smelling. UA and culture obtained.
[2018-12-10] MEDS: Glucerna Shake 120 ML LIQUID PO ×4 (04:16→21:02)
[2018-12-10 04:17] VITALS: BP 118/49; PULSE 60
[2018-12-10] MEDS: Citalopram 20 MG Tablet PO (04:17)
[2018-12-10] MEDS: Metoprolol Tartrate 25 MG Tablet 12.5 MG PO ×2 (04:17→17:38)
[2018-12-10] MEDS: APIXABAN 5 MG TABLET PO ×2 (04:17→17:38)
[2018-12-10] MEDS: Furosemide 40 MG Tablet PO (04:18)
[2018-12-10] MEDS: Nystatin Powder 15gm Bottle 1 APPLIC TOPICAL ×2 (04:18→21:03)
[2018-12-10] MEDS: Senna Tablet 1 TABLET PO ×2 (04:18→17:40)
[2018-12-10] MEDS: Levothyroxine 175 MCG Tablet PO (04:18)
[2018-12-10 04:19] LABS: Bacteria 0 SEEN /hpf (None Seen); Mucous, Urine 0 SEEN /hpf (<or=2+); Squamous Epithelial Cells - UA 0 SEEN /hpf (5-10)
[2018-12-10 04:31] LABS: Color, Urine Yellow (Yellow); Glucose, Dipstick NEGATIVE (Normal); Ketone-Dipstick Negative (Negative); Leukocyte Esterase-Dipstick 500 /ul (Negative); Nitrite-Dipstick Negative (Negative); Occult Blood-Urine 50 /ul (Negative); Protein-Dipstick Negative (Negative); Red Blood Cells-Urine 5-10 SEEN /hpf (0-5); Specific Gravity, Urine 1.005 (1.002-1.030); Urine Bilirubin Dipstick Negative (Negative); Urine Clarity Clear (Clear); Urine Urobilinogen Normal (Normal); Urine pH 6.5 (5.0 - 8.0); White Blood Cells 10-25 SEEN /hpf (0-5)
[2018-12-10 06:31] LABS: Bedside Glucose 135 mg/dL (70-110)
[2018-12-10 06:55] VITALS: O2SAT 95
[2018-12-10 07:15] LABS: Bedside Glucose 130 mg/dL (70-110)
--- NOTE | 2018-12-10 08:28 | NURSING ---
New order for Cipro 250mg PO BID.
[2018-12-10] MEDS: Iron Polysaccharide Complex 150 MG CAPSULE PO (08:37)
[2018-12-10] MEDS: Aspirin 81 MG TAB.CHEW PO (08:37)
[2018-12-10] MEDS: Ciprofloxacin 250 MG Tablet PO ×2 (09:24→17:38)
[2018-12-10] MEDS: hydrOXYzine PAM 25 MG Capsule 50 MG PO ×2 (09:29→21:38)
[2018-12-10 10:56] LABS: Bedside Glucose 195 mg/dL (70-110)
--- NOTE | 2018-12-10 15:24 | NURSING ---
wound photo: sacrum/elisha-anal area
[2018-12-10 16:00] VITALS: BP 102/59; PULSE 55; RESP 20; TEMP 36.4; O2SAT 96
[2018-12-10 16:55] LABS: Bedside Glucose 112 mg/dL (70-110)
[2018-12-10 17:38] VITALS: PULSE 60
--- NOTE | 2018-12-10 17:48 | NURSING ---
Noted by this nurse that Resident has been lying on her Rt hip much of the day. Encouraged to reposition and get off her Rt hip and resident voices disagreement. Jocelyn been moved around all day. Is anyone keeping track of how much I move around? and its too painful to lie on my other side Given oxyir at this time for complaints of pain. Will reassess. also not wanting this nurse to apply mycostatin powder or lotrimixole cream at this time as she is eating supper.
[2018-12-10] MEDS: 0.9% NaCl Midline IV Flush IV ×2 (17:52→21:38)
[2018-12-10] MEDS: Latanoprost 0.005% 1 Bottle 1 DRP EACH EYE (21:01)
[2018-12-10] MEDS: Atorvastatin Calcium 80 MG Tablet PO (21:02)
[2018-12-10] MEDS: Pramipexole Di-HCl 0.25 MG Tablet PO (21:03)
[2018-12-10 21:06] LABS: Bedside Glucose 194 mg/dL (70-110)
--- NOTE | 2018-12-10 21:25 | NURSING ---
Patient encouraged to be turned off right hip. Patient refusing. States I am comfortable and it is hard for me to get comfortable. Will continue to encourage patient to turn off of hip.
--- NOTE | 2018-12-10 22:46 | PCA ---
pt refused to turn or wash up tonight.
--- NOTE | 2018-12-11 03:55 | PCA ---
res. refused to be repositioned off of right side, RN. aware
[2018-12-11] MEDS: Glucerna Shake 120 ML LIQUID PO ×4 (05:28→20:58)
[2018-12-11] MEDS: Polyethylene Glycol 3350 17 GM PACKET PO (05:28)
[2018-12-11 05:29] VITALS: BP 130/43; PULSE 55
[2018-12-11] MEDS: Metoprolol Tartrate 25 MG Tablet 12.5 MG PO ×2 (05:29→16:38)
[2018-12-11] MEDS: Citalopram 20 MG Tablet PO (05:29)
[2018-12-11] MEDS: Ciprofloxacin 250 MG Tablet PO ×2 (05:29→16:37)
[2018-12-11] MEDS: Furosemide 40 MG Tablet PO (05:29)
[2018-12-11] MEDS: Senna Tablet 1 TABLET PO ×2 (05:30→16:40)
[2018-12-11] MEDS: Levothyroxine 175 MCG Tablet PO (05:30)
[2018-12-11] MEDS: APIXABAN 5 MG TABLET PO ×2 (05:31→16:38)
[2018-12-11] MEDS: Nystatin Powder 15gm Bottle 1 APPLIC TOPICAL ×2 (05:32→20:58)
--- NOTE | 2018-12-11 06:31 | NURSING ---
Patient has been refusing to be turned off her right hip all night. Encouraged patient this morning to allow staff to turn her off hip to prevent breakdown. Patient states will try Will continue to encourage patient to be turned off of right hip.
[2018-12-11 06:32] LABS: Absolute Lymphocyte Count 2.25 X10^3/ul (0.83-4.51); Absolute Neutrophil Count 4.9 X10^3/uL (2.0-7.7); Basophil# 0.02 X10^3/uL; Basophil% 0.2 % (0-1); Eosinophil# 0.52 X10^3/uL; Eosinophils% 6.2 % (0-5); Hematocrit 31.8 % (37-47); Hemoglobin 9.7 g/dl (12.0-15.0); Lymphocyte # 2.25 X10^3/ul (4.0); Lymphocyte % 26.8 % (19-41); Mean Corp Hgb Conc 30.5 g/gl (32-36); Mean Corpuscular Hgb 25.1 pg (27.0-32.0); Mean Corpuscular Volume 82.4 fL (81-99); Mean Platelet Vol. 10.3 fl (6.2-12.0); Monocyte# 0.67 X10^3/uL; Neutrophil # 4.88 X10^3/uL (2.7-7.7); Platelet Count 267 K/mm3 (150-450); RBC Distribution Width CV 16.5 % (11.6-14.6); RBC Distribution Width SD 49.2 fl (35.1-43.9); Red Blood Count 3.86 M/mm3 (4.2-5.4); White Blood Count 8.4 K/mm3 (4.4-11.0)
[2018-12-11 06:35] LABS: POSITIVE COUNT NO; POSITIVE DIFFERENTIAL NO; POSITIVE MORPHOLOGY NO
[2018-12-11 06:47] VITALS: O2SAT 97
[2018-12-11 06:50] LABS: Bedside Glucose 159 mg/dL (70-110)
[2018-12-11 06:53] LABS: Anion Gap 7 (5-15); BUN 34 mg/dL (7-18); BUN/Creat Ratio 61.8 RATIO (10-20); Calcium,Total 8.7 mg/dL (8.5-10.1); Chloride 97 mmol/L (98-107); Creatinine, Serum 0.55 mg/dL (0.55-1.02); EST Glomerular Filtration Rate 115 mL/min (>60); Est Glom Filt Rate - Afr Amer 139 mL/min (>60); Estimated Creatinine Clearance 42.07 ml/min; Glucose 112 mg/dL (74-106); Potassium 4.1 mmol/L (3.5-5.1); Sodium Level 135 mmol/L (136-145)
[2018-12-11] MEDS: Iron Polysaccharide Complex 150 MG CAPSULE PO (07:48)
[2018-12-11] MEDS: Aspirin 81 MG TAB.CHEW PO (07:49)
[2018-12-11] MEDS: 0.9% NaCl Midline IV Flush IV (07:52)
[2018-12-11] MEDS: Tuberculin,Purif.prot.deriv. 50 TU/ML Vial 5 ML ID (09:49)
[2018-12-11 11:01] LABS: Bedside Glucose 201 mg/dL (70-110)
--- NOTE | 2018-12-11 11:57 | NURSING ---
returned from power generating plant operator, no new orders, will call the office. daughter states that he said she could take 81mg aspirin. will clarify
[2018-12-11] MEDS: Bisacodyl 5 MG Tablet 10 MG PO (12:00)
--- NOTE | 2018-12-11 12:05 | NURSING ---
per shift superintendent caustic cresylate nurse and output documentation, pt has not had very much stool in colostomy bag, PRN dulcolax given. small amt of soft brown stool noted in bag.
--- NOTE | 2018-12-11 15:43 | CHAPLAIN ---
Type of Pastoral Visit _x__ Initial Visit ___ Follow-up Visit ___ On-call Visit ___ General Patient Visit ___ Spiritual Assessment ___ Family Conference ___ Bereavement ___ Rapid Response ___ Code Blue ___ Other (describe below) Pastoral Care Referral From ___ Patient ___ Family _x__ Nurse ___ Physician ___ Probation Agent ___ Berry Picker Machine Operator ___ Other (describe below) Sacrament/Intervention _x__ Active listening ___ Anointing ___ Islam ___ Bereavement ___ Communion _x__ Codi exploration ___ ___ Life review _x__ Prayer ___ Reconciliation ___ Sacrament of Sick _x__ Supportive presence ___ Wedding ___ Other (describe below) Pastoral Comments spouse is with patient; pt says that her production control expert has been attentive to her spiritual needs but welcomes prayer and support from the tree trimming supervisor too; pt had some discouragement today after visiting the Doctor's office but says she is doing better now
[2018-12-11 16:00] VITALS: BP 111/50; PULSE 77; RESP 18; TEMP 36.3; O2SAT 91
[2018-12-11 16:38] VITALS: PULSE 66
[2018-12-11 16:51] LABS: Bedside Glucose 176 mg/dL (70-110)
[2018-12-11] MEDS: Ondansetron ODT 4 MG Tablet PO (19:44)
[2018-12-11] MEDS: oxyCODONE 5 MG Tablet 10 MG PO (20:50)
[2018-12-11 20:51] VITALS: PULSE 71; O2SAT 93
[2018-12-11] MEDS: Atorvastatin Calcium 80 MG Tablet PO (20:58)
[2018-12-11] MEDS: Latanoprost 0.005% 1 Bottle 1 DRP EACH EYE (20:59)
[2018-12-11] MEDS: Pramipexole Di-HCl 0.25 MG Tablet PO (21:00)
[2018-12-11 21:10] LABS: Bedside Glucose 192 mg/dL (70-110)
[2018-12-11] MEDS: hydrOXYzine PAM 25 MG Capsule 50 MG PO (22:21)
[2018-12-12] MEDS: Citalopram 20 MG Tablet PO (06:05)
[2018-12-12 06:06] VITALS: BP 130/51; PULSE 60
[2018-12-12] MEDS: Senna Tablet 1 TABLET PO ×2 (06:06→17:04)
[2018-12-12] MEDS: Nystatin Powder 15gm Bottle 1 APPLIC TOPICAL ×2 (06:06→20:35)
[2018-12-12] MEDS: Levothyroxine 175 MCG Tablet PO (06:06)
[2018-12-12] MEDS: Polyethylene Glycol 3350 17 GM PACKET PO (06:06)
[2018-12-12] MEDS: Metoprolol Tartrate 25 MG Tablet 12.5 MG PO ×2 (06:06→17:04)
[2018-12-12] MEDS: Furosemide 40 MG Tablet PO (06:07)
[2018-12-12] MEDS: APIXABAN 5 MG TABLET PO ×2 (06:07→17:04)
[2018-12-12] MEDS: Ciprofloxacin 250 MG Tablet PO (06:07)
[2018-12-12] MEDS: Glucerna Shake 120 ML LIQUID PO ×3 (06:07→17:05)
[2018-12-12 06:56] LABS: Bedside Glucose 148 mg/dL (70-110)
[2018-12-12 07:50] VITALS: O2SAT 93
[2018-12-12] MEDS: Aspirin 81 MG TAB.CHEW PO (08:10)
[2018-12-12] MEDS: Iron Polysaccharide Complex 150 MG CAPSULE PO (08:10)
[2018-12-12] MEDS: oxyCODONE 5 MG Tablet 10 MG PO (11:03)
[2018-12-12 11:20] LABS: Bedside Glucose 188 mg/dL (70-110)
--- NOTE | 2018-12-12 13:15 | CASEMGMT ---
Plan of care meeting held today with pt, spouse and daughter present. Pt is receiving PT/OT and is receiving nursing care for wounds. No d/c date set at this time. Pt lives in an in law suite of daughters home and plans to return there upon d/c. Treatment plan will continue at this time. LAURA Jacobs
[2018-12-12 14:45] VITALS: BP 109/35; PULSE 60; RESP 18; TEMP 36.4; O2SAT 94
[2018-12-12 15:11] VITALS: PULSE 60; RESP 18; O2SAT 94
[2018-12-12 17:04] VITALS: PULSE 60
[2018-12-12 17:11] LABS: Bedside Glucose 129 mg/dL (70-110)
--- NOTE | 2018-12-12 17:29 | NURSING ---
urine cx results no growth, dr juarez notified derik joe'philomena. pt with yeasty odor and moist groin folds. new order diflucan x7 days
[2018-12-12] MEDS: Latanoprost 0.005% 1 Bottle 1 DRP EACH EYE (20:34)
[2018-12-12] MEDS: Pramipexole Di-HCl 0.25 MG Tablet PO (20:45)
[2018-12-12] MEDS: Atorvastatin Calcium 80 MG Tablet PO (20:46)
[2018-12-12] MEDS: Acetaminophen 500 MG Tablet 1000 MG PO (20:46)
[2018-12-12] MEDS: 0.9% NaCl Midline IV Flush IV (20:46)
[2018-12-12 21:05] LABS: Bedside Glucose 204 mg/dL (70-110)
[2018-12-13 06:46] LABS: Bedside Glucose 112 mg/dL (70-110)
[2018-12-13] MEDS: Fluconazole 100 MG Tablet PO (06:54)
[2018-12-13] MEDS: Levothyroxine 175 MCG Tablet PO (06:54)
[2018-12-13] MEDS: APIXABAN 5 MG TABLET PO ×2 (06:54→18:08)
[2018-12-13] MEDS: Citalopram 20 MG Tablet PO (06:54)
[2018-12-13] MEDS: Senna Tablet 1 TABLET PO ×2 (06:54→18:09)
[2018-12-13] MEDS: Polyethylene Glycol 3350 17 GM PACKET PO (06:54)
[2018-12-13] MEDS: Furosemide 40 MG Tablet PO (06:54)
[2018-12-13] MEDS: Nystatin Powder 15gm Bottle 1 APPLIC TOPICAL ×2 (06:55→20:44)
[2018-12-13 06:57] VITALS: BP 111/65; PULSE 58
[2018-12-13] MEDS: Metoprolol Tartrate 25 MG Tablet 12.5 MG PO ×2 (06:57→18:08)
[2018-12-13] MEDS: Acetaminophen 500 MG Tablet 1000 MG PO ×2 (08:35→20:49)
[2018-12-13] MEDS: Aspirin 81 MG TAB.CHEW PO (08:36)
[2018-12-13] MEDS: Ondansetron ODT 4 MG Tablet PO ×2 (08:36→16:58)
[2018-12-13] MEDS: Iron Polysaccharide Complex 150 MG CAPSULE PO (08:37)
--- NOTE | 2018-12-13 09:30 | MDS.RN ---
Information for the mds was obtained from review of the clinical record, interview of resident, staff, and direct observation of resident's care.
[2018-12-13] MEDS: Mag Hydrox/Al Hydrox/Simeth 30 ML UDC PO ×2 (10:08→18:15)
[2018-12-13 11:21] LABS: Bedside Glucose 172 mg/dL (70-110)
[2018-12-13 13:11] LABS: Bedside Glucose 184 mg/dL (70-110)
[2018-12-13 15:20] VITALS: BP 118/57; PULSE 62; RESP 14; TEMP 36.6; O2SAT 95
[2018-12-13 17:05] LABS: Bedside Glucose 132 mg/dL (70-110)
--- NOTE | 2018-12-13 17:50 | NURSING ---
Pt. states she is feeling more depressed d/t health condition. Dr. Will updated, new order for bupropion 150mg PO BID for depression.
[2018-12-13 18:08] VITALS: BP 118/57; PULSE 62
[2018-12-13] MEDS: Pramipexole Di-HCl 0.25 MG Tablet PO (20:44)
[2018-12-13] MEDS: Atorvastatin Calcium 80 MG Tablet PO (20:44)
[2018-12-13] MEDS: Latanoprost 0.005% 1 Bottle 1 DRP EACH EYE (20:44)
[2018-12-13] MEDS: Glucerna Shake 120 ML LIQUID PO (20:46)
[2018-12-13] MEDS: 0.9% NaCl Midline IV Flush IV (20:52)
[2018-12-13 21:01] LABS: Bedside Glucose 163 mg/dL (70-110)
[2018-12-14] MEDS: oxyCODONE 5 MG Tablet 10 MG PO ×2 (03:04→22:10)
[2018-12-14] MEDS: Nystatin Powder 15gm Bottle 1 APPLIC TOPICAL ×2 (03:06→20:42)
[2018-12-14 06:30] LABS: Bedside Glucose 102 mg/dL (70-110)
[2018-12-14] MEDS: Glucerna Shake 120 ML LIQUID PO ×3 (06:33→20:39)
[2018-12-14] MEDS: APIXABAN 5 MG TABLET PO ×2 (06:33→18:38)
[2018-12-14 06:34] VITALS: BP 118/49; PULSE 60
[2018-12-14] MEDS: Senna Tablet 1 TABLET PO ×2 (06:34→18:38)
[2018-12-14] MEDS: Citalopram 20 MG Tablet PO (06:34)
[2018-12-14] MEDS: Levothyroxine 175 MCG Tablet PO (06:34)
[2018-12-14] MEDS: Furosemide 40 MG Tablet PO (06:34)
[2018-12-14] MEDS: buPROPion (SR) 150 MG Tablet.SA PO ×2 (06:34→18:38)
[2018-12-14] MEDS: Metoprolol Tartrate 25 MG Tablet 12.5 MG PO ×2 (06:34→18:40)
[2018-12-14] MEDS: Fluconazole 100 MG Tablet PO (06:34)
[2018-12-14 06:45] VITALS: O2SAT 96
[2018-12-14] MEDS: Aspirin 81 MG TAB.CHEW PO (08:35)
[2018-12-14] MEDS: Iron Polysaccharide Complex 150 MG CAPSULE PO (08:35)
[2018-12-14 11:36] LABS: Bedside Glucose 132 mg/dL (70-110)
[2018-12-14 16:00] VITALS: BP 119/51; PULSE 57; RESP 20; TEMP 36.6; O2SAT 98
[2018-12-14 17:16] LABS: Bedside Glucose 121 mg/dL (70-110)
[2018-12-14 18:40] VITALS: BP 119/51; PULSE 57
[2018-12-14] MEDS: Atorvastatin Calcium 80 MG Tablet PO (20:39)
[2018-12-14] MEDS: Pramipexole Di-HCl 0.25 MG Tablet PO (20:39)
[2018-12-14] MEDS: Latanoprost 0.005% 1 Bottle 1 DRP EACH EYE (20:40)
[2018-12-14 21:11] LABS: Bedside Glucose 169 mg/dL (70-110)
[2018-12-14] MEDS: hydrOXYzine PAM 25 MG Capsule 50 MG PO (23:02)
[2018-12-15] MEDS: Polyethylene Glycol 3350 17 GM PACKET PO (05:24)
[2018-12-15] MEDS: Furosemide 40 MG Tablet PO (05:28)
[2018-12-15] MEDS: Fluconazole 100 MG Tablet PO (05:28)
[2018-12-15] MEDS: buPROPion (SR) 150 MG Tablet.SA PO ×2 (05:28→17:33)
[2018-12-15] MEDS: APIXABAN 5 MG TABLET PO ×2 (05:29→17:32)
[2018-12-15] MEDS: Senna Tablet 1 TABLET PO ×2 (05:29→17:33)
[2018-12-15] MEDS: Citalopram 20 MG Tablet PO (05:29)
[2018-12-15] MEDS: Glucerna Shake 120 ML LIQUID PO ×3 (05:32→21:30)
[2018-12-15] MEDS: Nystatin Powder 15gm Bottle 1 APPLIC TOPICAL ×2 (05:33→20:09)
[2018-12-15 06:36] LABS: Bedside Glucose 126 mg/dL (70-110)
[2018-12-15] MEDS: Aspirin 81 MG TAB.CHEW PO (08:02)
[2018-12-15 08:03] VITALS: BP 102/48; PULSE 70
[2018-12-15] MEDS: Metoprolol Tartrate 25 MG Tablet 12.5 MG PO ×2 (08:03→17:32)
[2018-12-15] MEDS: Iron Polysaccharide Complex 150 MG CAPSULE PO (08:03)
[2018-12-15] MEDS: Acetaminophen 500 MG Tablet 1000 MG PO (13:12)
[2018-12-15 16:00] VITALS: BP 115/40; PULSE 68; RESP 20; TEMP 35.9; O2SAT 98
[2018-12-15 17:00] LABS: Bedside Glucose 168 mg/dL (70-110)
[2018-12-15 17:32] VITALS: BP 115/40; PULSE 68
[2018-12-15] MEDS: Latanoprost 0.005% 1 Bottle 1 DRP EACH EYE (20:10)
[2018-12-15] MEDS: 0.9% NaCl Midline IV Flush IV (20:13)
[2018-12-15 21:16] LABS: Bedside Glucose 143 mg/dL (70-110)
[2018-12-15] MEDS: Atorvastatin Calcium 80 MG Tablet PO (21:31)
[2018-12-15] MEDS: Pramipexole Di-HCl 0.25 MG Tablet PO (21:31)
[2018-12-15] MEDS: hydrOXYzine PAM 25 MG Capsule 50 MG PO (21:32)
[2018-12-15] MEDS: oxyCODONE 5 MG Tablet 10 MG PO (22:51)
[2018-12-16] MEDS: Polyethylene Glycol 3350 17 GM PACKET PO (06:06)
[2018-12-16] MEDS: Citalopram 20 MG Tablet PO (06:09)
[2018-12-16] MEDS: Fluconazole 100 MG Tablet PO (06:09)
[2018-12-16 06:10] VITALS: BP 130/55; PULSE 57
[2018-12-16] MEDS: Furosemide 40 MG Tablet PO (06:10)
[2018-12-16] MEDS: Metoprolol Tartrate 25 MG Tablet 12.5 MG PO ×2 (06:10→17:36)
[2018-12-16] MEDS: Glucerna Shake 120 ML LIQUID PO ×4 (06:10→21:49)
[2018-12-16] MEDS: Nystatin Powder 15gm Bottle 1 APPLIC TOPICAL ×2 (06:10→21:43)
[2018-12-16] MEDS: APIXABAN 5 MG TABLET PO ×2 (06:10→17:37)
[2018-12-16] MEDS: Senna Tablet 1 TABLET PO ×2 (06:11→17:36)
[2018-12-16] MEDS: buPROPion (SR) 150 MG Tablet.SA PO ×2 (06:11→17:36)
[2018-12-16 06:40] LABS: Bedside Glucose 106 mg/dL (70-110)
[2018-12-16 06:50] VITALS: O2SAT 94
[2018-12-16] MEDS: Aspirin 81 MG TAB.CHEW PO (08:07)
[2018-12-16] MEDS: Iron Polysaccharide Complex 150 MG CAPSULE PO (08:07)
[2018-12-16 11:21] LABS: Bedside Glucose 146 mg/dL (70-110)
[2018-12-16 15:41] VITALS: BP 122/51; PULSE 63; RESP 20; TEMP 36.2; O2SAT 98
[2018-12-16 17:01] LABS: Bedside Glucose 105 mg/dL (70-110)
[2018-12-16 17:36] VITALS: BP 122/51; PULSE 63
[2018-12-16 21:26] LABS: Bedside Glucose 148 mg/dL (70-110)
[2018-12-16] MEDS: Latanoprost 0.005% 1 Bottle 1 DRP EACH EYE (21:40)
[2018-12-16] MEDS: Pramipexole Di-HCl 0.25 MG Tablet PO (21:41)
[2018-12-16] MEDS: Atorvastatin Calcium 80 MG Tablet PO (21:41)
[2018-12-16] MEDS: 0.9% NaCl Midline IV Flush IV (21:42)
[2018-12-16] MEDS: Acetaminophen 500 MG Tablet 1000 MG PO (21:48)
[2018-12-16] MEDS: hydrOXYzine PAM 25 MG Capsule 50 MG PO (23:55)
[2018-12-17] MEDS: Polyethylene Glycol 3350 17 GM PACKET PO (05:09)
[2018-12-17] MEDS: Glucerna Shake 120 ML LIQUID PO ×4 (05:09→20:56)
[2018-12-17] MEDS: Senna Tablet 1 TABLET PO ×2 (05:10→18:05)
[2018-12-17] MEDS: APIXABAN 5 MG TABLET PO ×2 (05:10→18:04)
[2018-12-17] MEDS: buPROPion (SR) 150 MG Tablet.SA PO ×2 (05:10→18:05)
[2018-12-17] MEDS: Fluconazole 100 MG Tablet PO (05:10)
[2018-12-17] MEDS: Citalopram 20 MG Tablet PO (05:11)
[2018-12-17] MEDS: Levothyroxine 175 MCG Tablet PO (05:11)
[2018-12-17] MEDS: Furosemide 40 MG Tablet PO (05:11)
[2018-12-17] MEDS: Nystatin Powder 15gm Bottle 1 APPLIC TOPICAL ×2 (05:12→20:57)
[2018-12-17 05:13] VITALS: BP 118/45; PULSE 62
[2018-12-17] MEDS: Metoprolol Tartrate 25 MG Tablet 12.5 MG PO ×2 (05:13→18:04)
[2018-12-17 06:42] VITALS: O2SAT 95
[2018-12-17 06:51] LABS: Bedside Glucose 121 mg/dL (70-110)
[2018-12-17] MEDS: Ondansetron ODT 4 MG Tablet PO (07:14)
[2018-12-17] MEDS: Iron Polysaccharide Complex 150 MG CAPSULE PO (08:55)
[2018-12-17] MEDS: Aspirin 81 MG TAB.CHEW PO (08:55)
[2018-12-17] MEDS: 0.9% NaCl Midline IV Flush IV ×2 (09:11→21:04)
[2018-12-17 09:14] VITALS: RESP 18
[2018-12-17 11:26] LABS: Bedside Glucose 158 mg/dL (70-110)
[2018-12-17 14:14] VITALS: BP 113/56; PULSE 73; RESP 18; TEMP 37; O2SAT 100
--- NOTE | 2018-12-17 15:42 | NURSING ---
wound photo: sacrum/elisha-anal
--- NOTE | 2018-12-17 16:30 | CASEMGMT ---
BIMS and PHQ9 interviews completed for MDS assessment. LAURA Jacobs
[2018-12-17 17:46] LABS: Bedside Glucose 129 mg/dL (70-110)
[2018-12-17 18:04] VITALS: PULSE 73
[2018-12-17] MEDS: Latanoprost 0.005% 1 Bottle 1 DRP EACH EYE (20:56)
[2018-12-17] MEDS: Acetaminophen 500 MG Tablet 1000 MG PO (20:57)
[2018-12-17] MEDS: Pramipexole Di-HCl 0.25 MG Tablet PO (20:57)
[2018-12-17] MEDS: Atorvastatin Calcium 80 MG Tablet PO (20:57)
[2018-12-17 21:01] LABS: Bedside Glucose 166 mg/dL (70-110)
[2018-12-18 06:01] LABS: Absolute Lymphocyte Count 3.16 X10^3/ul (0.83-4.51); Absolute Neutrophil Count 4.7 X10^3/uL (2.0-7.7); Basophil# 0.03 X10^3/uL; Basophil% 0.3 % (0-1); Eosinophil# 0.49 X10^3/uL; Eosinophils% 5.3 % (0-5); Hematocrit 32.1 % (37-47); Hemoglobin 10.1 g/dl (12.0-15.0); Lymphocyte # 3.16 X10^3/ul (4.0); Lymphocyte % 34.5 % (19-41); Mean Corp Hgb Conc 31.5 g/gl (32-36); Mean Corpuscular Hgb 25.4 pg (27.0-32.0); Mean Corpuscular Volume 80.9 fL (81-99); Mean Platelet Vol. 10.4 fl (6.2-12.0); Monocyte# 0.67 X10^3/uL; Monocyte% 7.3 % (0-10); Neutrophil # 4.72 X10^3/uL (2.7-7.7); Neutrophil % 51.5 % (47-70); Platelet Count 295 K/mm3 (150-450); RBC Distribution Width CV 16.8 % (11.6-14.6); RBC Distribution Width SD 48.9 fl (35.1-43.9); Red Blood Count 3.97 M/mm3 (4.2-5.4); White Blood Count 9.2 K/mm3 (4.4-11.0)
[2018-12-18 06:06] LABS: Anion Gap 7 (5-15); BUN 36 mg/dL (7-18); BUN/Creat Ratio 50.1 RATIO (10-20); Calcium,Total 8.9 mg/dL (8.5-10.1); Chloride 100 mmol/L (98-107); Creatinine, Serum 0.72 mg/dL (0.55-1.02); EST Glomerular Filtration Rate 85 mL/min (>60); Est Glom Filt Rate - Afr Amer 102 mL/min (>60); Estimated Creatinine Clearance 42.07 ml/min; Glucose 107 mg/dL (74-106); Potassium 4.4 mmol/L (3.5-5.1); Sodium Level 136 mmol/L (136-145)
[2018-12-18 06:07] LABS: POSITIVE COUNT NO; POSITIVE DIFFERENTIAL NO; POSITIVE MORPHOLOGY NO
[2018-12-18] MEDS: Furosemide 40 MG Tablet PO (06:16)
[2018-12-18] MEDS: Levothyroxine 175 MCG Tablet PO (06:16)
[2018-12-18] MEDS: APIXABAN 5 MG TABLET PO ×2 (06:16→17:37)
[2018-12-18] MEDS: Senna Tablet 1 TABLET PO ×2 (06:16→17:36)
[2018-12-18] MEDS: Citalopram 20 MG Tablet PO (06:16)
[2018-12-18] MEDS: buPROPion (SR) 150 MG Tablet.SA PO ×2 (06:16→17:38)
[2018-12-18] MEDS: Fluconazole 100 MG Tablet PO (06:16)
[2018-12-18] MEDS: Nystatin Powder 15gm Bottle 1 APPLIC TOPICAL ×2 (06:16→20:42)
[2018-12-18] MEDS: Polyethylene Glycol 3350 17 GM PACKET PO (06:16)
[2018-12-18 06:17] VITALS: BP 136/48; PULSE 59
[2018-12-18] MEDS: Glucerna Shake 120 ML LIQUID PO ×4 (06:17→20:38)
[2018-12-18] MEDS: Metoprolol Tartrate 25 MG Tablet 12.5 MG PO ×2 (06:17→17:36)
[2018-12-18 06:35] LABS: Bedside Glucose 112 mg/dL (70-110)
[2018-12-18 06:54] VITALS: O2SAT 97
[2018-12-18] MEDS: Iron Polysaccharide Complex 150 MG CAPSULE PO (08:51)
[2018-12-18] MEDS: Aspirin 81 MG TAB.CHEW PO (08:51)
[2018-12-18 11:26] LABS: Bedside Glucose 169 mg/dL (70-110)
[2018-12-18 15:55] VITALS: BP 106/59; PULSE 76; RESP 18; TEMP 36.6; O2SAT 95
[2018-12-18 17:01] LABS: Bedside Glucose 152 mg/dL (70-110)
[2018-12-18 17:36] VITALS: BP 106/59; PULSE 76
[2018-12-18] MEDS: 0.9% NaCl Midline IV Flush IV (17:41)
[2018-12-18] MEDS: Atorvastatin Calcium 80 MG Tablet PO (20:39)
[2018-12-18] MEDS: Pramipexole Di-HCl 0.25 MG Tablet PO (20:39)
[2018-12-18] MEDS: Latanoprost 0.005% 1 Bottle 1 DRP EACH EYE (20:40)
[2018-12-18 21:05] LABS: Bedside Glucose 162 mg/dL (70-110)
[2018-12-19] MEDS: Glucerna Shake 120 ML LIQUID PO ×4 (04:44→21:23)
[2018-12-19 04:45] VITALS: BP 128/41; PULSE 58
[2018-12-19] MEDS: Senna Tablet 1 TABLET PO ×2 (04:45→17:49)
[2018-12-19] MEDS: buPROPion (SR) 150 MG Tablet.SA PO ×2 (04:45→17:49)
[2018-12-19] MEDS: Levothyroxine 175 MCG Tablet PO (04:45)
[2018-12-19] MEDS: Fluconazole 100 MG Tablet PO (04:45)
[2018-12-19] MEDS: Metoprolol Tartrate 25 MG Tablet 12.5 MG PO ×2 (04:45→17:48)
[2018-12-19] MEDS: Citalopram 20 MG Tablet PO (04:45)
[2018-12-19] MEDS: Furosemide 40 MG Tablet PO (04:45)
[2018-12-19] MEDS: APIXABAN 5 MG TABLET PO ×2 (04:46→17:48)
[2018-12-19] MEDS: Polyethylene Glycol 3350 17 GM PACKET PO (04:48)
[2018-12-19] MEDS: Nystatin Powder 15gm Bottle 1 APPLIC TOPICAL ×2 (04:49→20:12)
[2018-12-19 06:31] LABS: Bedside Glucose 145 mg/dL (70-110)
[2018-12-19] MEDS: Aspirin 81 MG TAB.CHEW PO (07:44)
[2018-12-19] MEDS: Iron Polysaccharide Complex 150 MG CAPSULE PO (07:44)
[2018-12-19] MEDS: 0.9% NaCl Midline IV Flush IV ×2 (07:47→20:09)
[2018-12-19 13:02] LABS: Bedside Glucose 156 mg/dL (70-110)
[2018-12-19 16:00] VITALS: BP 118/51; PULSE 71; RESP 20; TEMP 35.9; O2SAT 97
[2018-12-19 17:48] VITALS: PULSE 71
[2018-12-19 17:50] LABS: Bedside Glucose 168 mg/dL (70-110)
[2018-12-19] MEDS: Latanoprost 0.005% 1 Bottle 1 DRP EACH EYE (20:12)
[2018-12-19] MEDS: Atorvastatin Calcium 80 MG Tablet PO (21:23)
[2018-12-19] MEDS: Pramipexole Di-HCl 0.25 MG Tablet PO (21:24)
[2018-12-19 21:28] VITALS: PULSE 73; O2SAT 95
[2018-12-19] MEDS: oxyCODONE 5 MG Tablet 10 MG PO (21:35)
[2018-12-19 21:41] LABS: Bedside Glucose 154 mg/dL (70-110)
[2018-12-20] MEDS: Glucerna Shake 120 ML LIQUID PO ×4 (06:04→20:56)
[2018-12-20] MEDS: APIXABAN 5 MG TABLET PO ×2 (06:06→17:32)
[2018-12-20] MEDS: Furosemide 40 MG Tablet PO (06:06)
[2018-12-20] MEDS: Fluconazole 100 MG Tablet PO (06:06)
[2018-12-20] MEDS: Citalopram 20 MG Tablet PO (06:06)
[2018-12-20 06:07] VITALS: BP 139/50; PULSE 63
[2018-12-20] MEDS: Polyethylene Glycol 3350 17 GM PACKET PO (06:07)
[2018-12-20] MEDS: Nystatin Powder 15gm Bottle 1 APPLIC TOPICAL ×2 (06:07→20:55)
[2018-12-20] MEDS: buPROPion (SR) 150 MG Tablet.SA PO ×2 (06:07→17:31)
[2018-12-20] MEDS: Levothyroxine 175 MCG Tablet PO (06:07)
[2018-12-20] MEDS: Senna Tablet 1 TABLET PO ×2 (06:07→17:31)
[2018-12-20] MEDS: Metoprolol Tartrate 25 MG Tablet 12.5 MG PO ×2 (06:07→17:32)
[2018-12-20 06:46] LABS: Bedside Glucose 108 mg/dL (70-110)
[2018-12-20] MEDS: Aspirin 81 MG TAB.CHEW PO (08:00)
[2018-12-20] MEDS: Iron Polysaccharide Complex 150 MG CAPSULE PO (08:00)
[2018-12-20 10:50] LABS: Bedside Glucose 153 mg/dL (70-110)
[2018-12-20 15:00] VITALS: O2SAT 97
[2018-12-20 15:17] VITALS: BP 119/53; PULSE 69; RESP 16; TEMP 36.8; O2SAT 97
[2018-12-20 16:55] LABS: Bedside Glucose 131 mg/dL (70-110)
[2018-12-20 17:32] VITALS: BP 119/53; PULSE 69
[2018-12-20 20:51] LABS: Bedside Glucose 172 mg/dL (70-110)
[2018-12-20] MEDS: oxyCODONE 5 MG Tablet 10 MG PO (20:52)
[2018-12-20] MEDS: 0.9% NaCl Midline IV Flush IV (20:53)
[2018-12-20] MEDS: Latanoprost 0.005% 1 Bottle 1 DRP EACH EYE (20:55)
[2018-12-20] MEDS: Pramipexole Di-HCl 0.25 MG Tablet PO (20:56)
[2018-12-20] MEDS: Atorvastatin Calcium 80 MG Tablet PO (20:56)
[2018-12-21] MEDS: Polyethylene Glycol 3350 17 GM PACKET PO (05:49)
[2018-12-21] MEDS: Furosemide 40 MG Tablet PO (05:49)
[2018-12-21] MEDS: APIXABAN 5 MG TABLET PO ×2 (05:49→16:43)
[2018-12-21] MEDS: buPROPion (SR) 150 MG Tablet.SA PO ×2 (05:49→16:44)
[2018-12-21] MEDS: Levothyroxine 175 MCG Tablet PO (05:49)
[2018-12-21] MEDS: Senna Tablet 1 TABLET PO ×2 (05:49→16:44)
[2018-12-21] MEDS: Citalopram 20 MG Tablet PO (05:49)
[2018-12-21 05:50] VITALS: BP 120/48; PULSE 64
[2018-12-21] MEDS: Glucerna Shake 120 ML LIQUID PO ×4 (05:50→20:15)
[2018-12-21] MEDS: Metoprolol Tartrate 25 MG Tablet 12.5 MG PO ×2 (05:50→16:44)
[2018-12-21] MEDS: Acetaminophen 500 MG Tablet 1000 MG PO (06:00)
[2018-12-21] MEDS: Nystatin Powder 15gm Bottle 1 APPLIC TOPICAL ×2 (06:01→20:18)
[2018-12-21 06:25] LABS: Bedside Glucose 88 mg/dL (70-110)
[2018-12-21 06:38] VITALS: O2SAT 96
[2018-12-21] MEDS: Aspirin 81 MG TAB.CHEW PO (08:27)
[2018-12-21] MEDS: Iron Polysaccharide Complex 150 MG CAPSULE PO (08:27)
--- NOTE | 2018-12-21 09:02 | MDS.RN ---
Information for the mds was obtained from review of the clinical record, interview of resident, staff, and direct observation of resident's care.
[2018-12-21 11:50] LABS: Bedside Glucose 121 mg/dL (70-110)
--- NOTE | 2018-12-21 12:01 | NURSING ---
blood sugar 88 this AM, new order to hold lantus [address] juarez
[2018-12-21 14:20] VITALS: BP 117/50; PULSE 73; RESP 16; TEMP 36.4; O2SAT 98
[2018-12-21 16:44] VITALS: PULSE 73
[2018-12-21 16:45] LABS: Bedside Glucose 150 mg/dL (70-110)
[2018-12-21] MEDS: Pramipexole Di-HCl 0.125 MG Tablet 0.25 MG PO (20:16)
[2018-12-21] MEDS: Latanoprost 0.005% 1 Bottle 1 DRP EACH EYE (20:17)
[2018-12-21] MEDS: Atorvastatin Calcium 80 MG Tablet PO (20:17)
[2018-12-21 20:55] LABS: Bedside Glucose 152 mg/dL (70-110)
[2018-12-21] MEDS: 0.9% NaCl Midline IV Flush IV (23:07)
[2018-12-22] MEDS: oxyCODONE 5 MG Tablet 10 MG PO ×2 (02:57→22:27)
[2018-12-22] MEDS: Nystatin Powder 15gm Bottle 1 APPLIC TOPICAL ×2 (05:18→20:01)
[2018-12-22] MEDS: Glucerna Shake 120 ML LIQUID PO ×4 (05:18→20:50)
[2018-12-22 05:27] VITALS: BP 144/49; PULSE 61
[2018-12-22] MEDS: Metoprolol Tartrate 25 MG Tablet 12.5 MG PO ×2 (05:27→17:08)
[2018-12-22] MEDS: Polyethylene Glycol 3350 17 GM PACKET PO (05:27)
[2018-12-22] MEDS: APIXABAN 5 MG TABLET PO ×2 (05:28→17:07)
[2018-12-22] MEDS: buPROPion (SR) 150 MG Tablet.SA PO ×2 (05:28→17:06)
[2018-12-22] MEDS: Senna Tablet 1 TABLET PO ×2 (05:28→17:07)
[2018-12-22] MEDS: Furosemide 40 MG Tablet PO (05:28)
[2018-12-22] MEDS: Citalopram 20 MG Tablet PO (05:28)
[2018-12-22 06:41] LABS: Bedside Glucose 130 mg/dL (70-110)
[2018-12-22 08:14] VITALS: O2SAT 98
[2018-12-22] MEDS: Iron Polysaccharide Complex 150 MG CAPSULE PO (08:31)
[2018-12-22] MEDS: Aspirin 81 MG TAB.CHEW PO (08:31)
[2018-12-22 11:20] LABS: Bedside Glucose 201 mg/dL (70-110)
[2018-12-22] MEDS: 0.9% NaCl Midline IV Flush IV ×2 (13:51→22:25)
[2018-12-22 14:37] VITALS: BP 110/47; PULSE 71; RESP 18; TEMP 36.3; O2SAT 99
[2018-12-22 16:46] LABS: Bedside Glucose 149 mg/dL (70-110)
[2018-12-22 17:08] VITALS: BP 110/47; PULSE 71
[2018-12-22] MEDS: Latanoprost 0.005% 1 Bottle 1 DRP EACH EYE (20:01)
[2018-12-22 20:50] LABS: Bedside Glucose 172 mg/dL (70-110)
[2018-12-22] MEDS: Pramipexole Di-HCl 0.125 MG Tablet 0.25 MG PO (20:51)
[2018-12-22] MEDS: Atorvastatin Calcium 80 MG Tablet PO (20:51)
[2018-12-23] MEDS: Citalopram 20 MG Tablet PO (05:34)
[2018-12-23 05:35] VITALS: BP 134/61; PULSE 60
[2018-12-23] MEDS: Glucerna Shake 120 ML LIQUID PO (05:35)
[2018-12-23] MEDS: Senna Tablet 1 TABLET PO ×2 (05:35→18:28)
[2018-12-23] MEDS: Metoprolol Tartrate 25 MG Tablet 12.5 MG PO ×2 (05:35→18:28)
[2018-12-23] MEDS: APIXABAN 5 MG TABLET PO ×2 (05:35→18:29)
[2018-12-23] MEDS: Polyethylene Glycol 3350 17 GM PACKET PO (05:35)
[2018-12-23] MEDS: Furosemide 40 MG Tablet PO (05:35)
[2018-12-23] MEDS: Nystatin Powder 15gm Bottle 1 APPLIC TOPICAL ×2 (05:35→21:04)
[2018-12-23] MEDS: buPROPion (SR) 150 MG Tablet.SA PO ×2 (05:35→18:28)
[2018-12-23 06:35] LABS: Bedside Glucose 135 mg/dL (70-110)
[2018-12-23] MEDS: Aspirin 81 MG TAB.CHEW PO (08:12)
[2018-12-23] MEDS: Iron Polysaccharide Complex 150 MG CAPSULE PO (08:13)
[2018-12-23 09:11] VITALS: O2SAT 98
[2018-12-23 11:10] LABS: Bedside Glucose 176 mg/dL (70-110)
[2018-12-23 16:00] VITALS: BP 122/86; PULSE 70; RESP 18; TEMP 36.6; O2SAT 98
[2018-12-23] MEDS: hydrOXYzine PAM 25 MG Capsule 50 MG PO ×2 (16:15→22:59)
[2018-12-23 17:11] LABS: Bedside Glucose 159 mg/dL (70-110)
[2018-12-23 18:28] VITALS: BP 122/86; PULSE 70
[2018-12-23] MEDS: Pramipexole Di-HCl 0.125 MG Tablet 0.25 MG PO (21:03)
[2018-12-23] MEDS: Atorvastatin Calcium 80 MG Tablet PO (21:03)
[2018-12-23] MEDS: Latanoprost 0.005% 1 Bottle 1 DRP EACH EYE (21:04)
[2018-12-23 21:11] LABS: Bedside Glucose 162 mg/dL (70-110)
[2018-12-23] MEDS: 0.9% NaCl Midline IV Flush IV (22:56)
[2018-12-24] MEDS: Glucerna Shake 120 ML LIQUID PO ×4 (06:11→21:23)
[2018-12-24] MEDS: APIXABAN 5 MG TABLET PO ×2 (06:12→17:47)
[2018-12-24] MEDS: Senna Tablet 1 TABLET PO ×2 (06:12→17:48)
[2018-12-24] MEDS: Polyethylene Glycol 3350 17 GM PACKET PO (06:12)
[2018-12-24] MEDS: Nystatin Powder 15gm Bottle 1 APPLIC TOPICAL ×2 (06:12→21:24)
[2018-12-24] MEDS: Furosemide 40 MG Tablet PO (06:12)
[2018-12-24] MEDS: Citalopram 20 MG Tablet PO (06:12)
[2018-12-24 06:13] VITALS: BP 132/61; PULSE 64
[2018-12-24] MEDS: Metoprolol Tartrate 25 MG Tablet 12.5 MG PO ×2 (06:13→17:49)
[2018-12-24] MEDS: buPROPion (SR) 150 MG Tablet.SA PO ×2 (06:13→17:48)
[2018-12-24] MEDS: Levothyroxine 175 MCG Tablet PO (06:13)
[2018-12-24 06:30] LABS: Bedside Glucose 108 mg/dL (70-110)
[2018-12-24 07:05] VITALS: O2SAT 98
[2018-12-24] MEDS: Iron Polysaccharide Complex 150 MG CAPSULE PO (08:12)
[2018-12-24] MEDS: Aspirin 81 MG TAB.CHEW PO (08:12)
[2018-12-24 10:55] LABS: Bedside Glucose 196 mg/dL (70-110)
[2018-12-24] MEDS: 0.9% NaCl Midline IV Flush IV ×2 (15:17→21:23)
[2018-12-24] MEDS: Acetaminophen 500 MG Tablet 1000 MG PO (15:17)
[2018-12-24 15:27] VITALS: BP 127/48; PULSE 74; RESP 16; TEMP 36.5; O2SAT 97
--- NOTE | 2018-12-24 15:27 | NURSING ---
wound photo: sacrum/elisha-anal
[2018-12-24 17:49] VITALS: PULSE 74
[2018-12-24 18:05] LABS: Bedside Glucose 344 mg/dL (70-110)
[2018-12-24 21:01] LABS: Bedside Glucose 267 mg/dL (70-110)
[2018-12-24] MEDS: Atorvastatin Calcium 80 MG Tablet PO (21:24)
[2018-12-24] MEDS: Pramipexole Di-HCl 0.125 MG Tablet 0.25 MG PO (21:24)
[2018-12-24] MEDS: Latanoprost 0.005% 1 Bottle 1 DRP EACH EYE (21:25)
[2018-12-24] MEDS: hydrOXYzine PAM 25 MG Capsule 50 MG PO (23:13)
[2018-12-25] MEDS: Polyethylene Glycol 3350 17 GM PACKET PO (05:20)
[2018-12-25] MEDS: Senna Tablet 1 TABLET PO ×2 (05:21→17:28)
[2018-12-25] MEDS: Glucerna Shake 120 ML LIQUID PO ×4 (05:21→21:56)
[2018-12-25] MEDS: APIXABAN 5 MG TABLET PO ×2 (05:21→17:24)
[2018-12-25] MEDS: Citalopram 20 MG Tablet PO (05:21)
[2018-12-25] MEDS: Levothyroxine 175 MCG Tablet PO (05:21)
[2018-12-25] MEDS: Furosemide 40 MG Tablet PO (05:21)
[2018-12-25] MEDS: Nystatin Powder 15gm Bottle 1 APPLIC TOPICAL ×2 (05:21→21:57)
[2018-12-25 05:23] VITALS: BP 124/50; PULSE 62
[2018-12-25] MEDS: Metoprolol Tartrate 25 MG Tablet 12.5 MG PO ×2 (05:23→17:23)
[2018-12-25] MEDS: buPROPion (SR) 150 MG Tablet.SA PO ×2 (05:25→17:23)
[2018-12-25 06:46] LABS: Bedside Glucose 153 mg/dL (70-110)
[2018-12-25] MEDS: Iron Polysaccharide Complex 150 MG CAPSULE PO (08:04)
[2018-12-25] MEDS: Aspirin 81 MG TAB.CHEW PO (08:04)
[2018-12-25] MEDS: 0.9% NaCl Midline IV Flush IV ×2 (08:06→22:00)
[2018-12-25 11:20] LABS: Bedside Glucose 223 mg/dL (70-110)
[2018-12-25 15:49] VITALS: BP 123/54; PULSE 80; RESP 16; TEMP 36.8; O2SAT 98
[2018-12-25 17:00] LABS: Bedside Glucose 226 mg/dL (70-110)
[2018-12-25 17:23] VITALS: BP 123/54; PULSE 80
[2018-12-25] MEDS: Atorvastatin Calcium 80 MG Tablet PO (21:56)
[2018-12-25] MEDS: Pramipexole Di-HCl 0.125 MG Tablet 0.25 MG PO (21:56)
[2018-12-25] MEDS: Latanoprost 0.005% 1 Bottle 1 DRP EACH EYE (21:56)
--- NOTE | 2018-12-26 04:50 | NURSING ---
Pt called out to nurses' station requesting ostomy be burped. RN entered room encouraged pt to assist with ostomy bag. Pt put on gloves and pushed down on ostomy bag while contents emptied into graduate. After RN clean bottom of ostomy flap, pt was able to fold ostomy and secure velcro. Pt educated on steps of ostomy care as being completed. Will continue to encourage pt to complete ostomy care.
[2018-12-26] MEDS: Polyethylene Glycol 3350 17 GM PACKET PO (05:40)
[2018-12-26] MEDS: Citalopram 20 MG Tablet PO (05:40)
[2018-12-26 05:41] VITALS: BP 133/53; PULSE 67
[2018-12-26] MEDS: Metoprolol Tartrate 25 MG Tablet 12.5 MG PO ×2 (05:41→16:59)
[2018-12-26] MEDS: Furosemide 40 MG Tablet PO (05:41)
[2018-12-26] MEDS: APIXABAN 5 MG TABLET PO ×2 (05:42→16:59)
[2018-12-26] MEDS: buPROPion (SR) 150 MG Tablet.SA PO ×2 (05:42→17:00)
[2018-12-26] MEDS: Senna Tablet 1 TABLET PO ×2 (05:42→17:00)
[2018-12-26] MEDS: Levothyroxine 175 MCG Tablet PO (05:42)
[2018-12-26] MEDS: Nystatin Powder 15gm Bottle 1 APPLIC TOPICAL ×2 (05:42→20:52)
[2018-12-26] MEDS: Glucerna Shake 120 ML LIQUID PO ×4 (05:42→20:48)
[2018-12-26 07:01] LABS: Bedside Glucose 150 mg/dL (70-110)
[2018-12-26] MEDS: Aspirin 81 MG TAB.CHEW PO (07:53)
[2018-12-26] MEDS: Iron Polysaccharide Complex 150 MG CAPSULE PO (07:53)
--- NOTE | 2018-12-26 09:00 | NURSING ---
DR MARTIN UPDATED THAT MONDAY WILL BE 30 DAYS SINCE MIDLINE PLACEMENT, NEW ORDER TO DC. NOT USING
[2018-12-26] MEDS: oxyCODONE 5 MG Tablet 10 MG PO (11:09)
[2018-12-26 11:20] VITALS: PULSE 55
[2018-12-26 11:35] LABS: Bedside Glucose 170 mg/dL (70-110)
[2018-12-26 14:58] VITALS: BP 109/54; PULSE 69; RESP 18; TEMP 36.8; O2SAT 96
[2018-12-26 16:56] LABS: Bedside Glucose 191 mg/dL (70-110)
[2018-12-26 16:59] VITALS: PULSE 69
--- NOTE | 2018-12-26 17:25 | NURSING ---
R' POSITIONED TO RIGHT SIDE. REFUSES AGAIN TO POSITION TO LEFT SIDE. WILL CONTINUE TO ENCOURAGE.
[2018-12-26] MEDS: Atorvastatin Calcium 80 MG Tablet PO (20:48)
[2018-12-26] MEDS: Pramipexole Di-HCl 0.125 MG Tablet 0.25 MG PO (20:48)
[2018-12-26] MEDS: Latanoprost 0.005% 1 Bottle 1 DRP EACH EYE (20:49)
[2018-12-26] MEDS: Ondansetron ODT 4 MG Tablet PO (20:53)
[2018-12-27] MEDS: oxyCODONE 5 MG Tablet 10 MG PO (04:26)
[2018-12-27] MEDS: Glucerna Shake 120 ML LIQUID PO ×4 (04:26→20:41)
[2018-12-27] MEDS: Furosemide 40 MG Tablet PO (04:27)
[2018-12-27] MEDS: buPROPion (SR) 150 MG Tablet.SA PO ×2 (04:27→17:05)
[2018-12-27] MEDS: APIXABAN 5 MG TABLET PO ×2 (04:27→17:04)
[2018-12-27] MEDS: Polyethylene Glycol 3350 17 GM PACKET PO (04:28)
[2018-12-27] MEDS: Senna Tablet 1 TABLET PO ×2 (04:28→17:05)
[2018-12-27] MEDS: Citalopram 20 MG Tablet PO (04:28)
[2018-12-27] MEDS: Levothyroxine 175 MCG Tablet PO (04:29)
[2018-12-27 04:30] VITALS: BP 118/43; PULSE 64
[2018-12-27] MEDS: Metoprolol Tartrate 25 MG Tablet 12.5 MG PO ×2 (04:30→17:06)
[2018-12-27] MEDS: Nystatin Powder 15gm Bottle 1 APPLIC TOPICAL ×2 (04:32→20:43)
[2018-12-27 06:46] LABS: Bedside Glucose 189 mg/dL (70-110)
[2018-12-27 07:47] VITALS: O2SAT 96
[2018-12-27] MEDS: Iron Polysaccharide Complex 150 MG CAPSULE PO (08:02)
[2018-12-27] MEDS: Aspirin 81 MG TAB.CHEW PO (08:02)
[2018-12-27 11:06] LABS: Bedside Glucose 197 mg/dL (70-110)
[2018-12-27 11:26] LABS: Bedside Glucose 190 mg/dL (70-110)
[2018-12-27 15:48] VITALS: BP 105/51; PULSE 90; RESP 18; TEMP 37.1; O2SAT 96
[2018-12-27 17:06] VITALS: BP 105/51; PULSE 90
[2018-12-27 17:40] LABS: Bedside Glucose 182 mg/dL (70-110)
[2018-12-27] MEDS: Atorvastatin Calcium 80 MG Tablet PO (20:42)
[2018-12-27] MEDS: Pramipexole Di-HCl 0.125 MG Tablet 0.25 MG PO (20:42)
[2018-12-27] MEDS: Latanoprost 0.005% 1 Bottle 1 DRP EACH EYE (20:44)
[2018-12-27 21:16] LABS: Bedside Glucose 219 mg/dL (70-110)
[2018-12-28] MEDS: APIXABAN 5 MG TABLET PO ×2 (05:31→17:34)
[2018-12-28] MEDS: Furosemide 40 MG Tablet PO (05:31)
[2018-12-28] MEDS: Glucerna Shake 120 ML LIQUID PO ×3 (05:31→20:57)
[2018-12-28] MEDS: Citalopram 20 MG Tablet PO (05:31)
[2018-12-28] MEDS: Senna Tablet 1 TABLET PO ×2 (05:32→17:34)
[2018-12-28] MEDS: Polyethylene Glycol 3350 17 GM PACKET PO (05:32)
[2018-12-28] MEDS: buPROPion (SR) 150 MG Tablet.SA PO ×2 (05:32→17:34)
[2018-12-28] MEDS: Levothyroxine 175 MCG Tablet PO (05:32)
[2018-12-28 05:35] VITALS: BP 139/45; PULSE 65
[2018-12-28] MEDS: Metoprolol Tartrate 25 MG Tablet 12.5 MG PO (05:35)
[2018-12-28] MEDS: Nystatin Powder 15gm Bottle 1 APPLIC TOPICAL ×2 (05:37→20:58)
[2018-12-28 06:26] LABS: Bedside Glucose 146 mg/dL (70-110)
--- NOTE | 2018-12-28 08:37 | PCA ---
therapy assisted with care
[2018-12-28] MEDS: Iron Polysaccharide Complex 150 MG CAPSULE PO (08:43)
[2018-12-28] MEDS: Aspirin 81 MG TAB.CHEW PO (08:44)
[2018-12-28 10:51] LABS: Bedside Glucose 210 mg/dL (70-110)
--- NOTE | 2018-12-28 11:54 | MDS.RN ---
Pain interview for demond 12/31/18 completed.
[2018-12-28] MEDS: oxyCODONE 5 MG Tablet 10 MG PO (12:15)
--- NOTE | 2018-12-28 13:07 | CASEMGMT ---
BIMS and PHQ9 interviews completed on this date for MDS assessment. LAURA Jacobs
[2018-12-28 16:00] VITALS: BP 96/25; PULSE 80; RESP 18; TEMP 36.8; O2SAT 97
[2018-12-28 16:41] LABS: Bedside Glucose 145 mg/dL (70-110)
[2018-12-28 17:43] VITALS: BP 84/37
[2018-12-28] MEDS: Pramipexole Di-HCl 0.125 MG Tablet 0.25 MG PO (20:58)
[2018-12-28] MEDS: Latanoprost 0.005% 1 Bottle 1 DRP EACH EYE (20:58)
[2018-12-28] MEDS: Atorvastatin Calcium 80 MG Tablet PO (20:58)
[2018-12-28 22:11] LABS: Bedside Glucose 155 mg/dL (70-110)
[2018-12-29 05:21] VITALS: BP 132/57; PULSE 69
[2018-12-29] MEDS: Nystatin Powder 15gm Bottle 1 APPLIC TOPICAL ×2 (05:21→21:02)
[2018-12-29] MEDS: Metoprolol Tartrate 25 MG Tablet 12.5 MG PO ×2 (05:21→17:11)
[2018-12-29] MEDS: Senna Tablet 1 TABLET PO ×2 (05:21→17:11)
[2018-12-29] MEDS: Polyethylene Glycol 3350 17 GM PACKET PO (05:21)
[2018-12-29] MEDS: Furosemide 40 MG Tablet PO (05:22)
[2018-12-29] MEDS: APIXABAN 5 MG TABLET PO ×2 (05:22→17:11)
[2018-12-29] MEDS: buPROPion (SR) 150 MG Tablet.SA PO ×2 (05:22→17:10)
[2018-12-29] MEDS: Citalopram 20 MG Tablet PO (05:22)
[2018-12-29] MEDS: Glucerna Shake 120 ML LIQUID PO ×3 (05:22→17:07)
[2018-12-29 05:56] LABS: Bedside Glucose 157 mg/dL (70-110)
[2018-12-29] MEDS: oxyCODONE 5 MG Tablet 10 MG PO (06:34)
[2018-12-29] MEDS: Iron Polysaccharide Complex 150 MG CAPSULE PO (08:01)
[2018-12-29] MEDS: Aspirin 81 MG TAB.CHEW PO (08:01)
[2018-12-29 10:46] LABS: Bedside Glucose 186 mg/dL (70-110)
[2018-12-29] MEDS: hydrOXYzine PAM 25 MG Capsule 50 MG PO (11:41)
[2018-12-29 16:00] VITALS: BP 120/48; PULSE 65; RESP 18; TEMP 36.2; O2SAT 97
[2018-12-29 17:11] VITALS: BP 120/48; PULSE 65
[2018-12-29 17:31] LABS: Bedside Glucose 142 mg/dL (70-110)
[2018-12-29] MEDS: Latanoprost 0.005% 1 Bottle 1 DRP EACH EYE (21:01)
[2018-12-29] MEDS: Pramipexole Di-HCl 0.125 MG Tablet 0.25 MG PO (21:01)
[2018-12-29] MEDS: Atorvastatin Calcium 80 MG Tablet PO (21:01)
[2018-12-29 21:40] LABS: Bedside Glucose 191 mg/dL (70-110)
[2018-12-30] MEDS: Glucerna Shake 120 ML LIQUID PO ×3 (06:18→21:09)
[2018-12-30 06:19] VITALS: PULSE 66
[2018-12-30] MEDS: Furosemide 40 MG Tablet PO (06:19)
[2018-12-30] MEDS: Citalopram 20 MG Tablet PO (06:19)
[2018-12-30] MEDS: Polyethylene Glycol 3350 17 GM PACKET PO (06:19)
[2018-12-30] MEDS: Metoprolol Tartrate 25 MG Tablet 12.5 MG PO ×2 (06:19→17:12)
[2018-12-30] MEDS: Senna Tablet 1 TABLET PO ×2 (06:19→17:12)
[2018-12-30] MEDS: buPROPion (SR) 150 MG Tablet.SA PO ×2 (06:19→17:16)
[2018-12-30] MEDS: APIXABAN 5 MG TABLET PO ×2 (06:23→17:11)
[2018-12-30] MEDS: Nystatin Powder 15gm Bottle 1 APPLIC TOPICAL ×2 (06:28→21:11)
[2018-12-30 06:41] VITALS: O2SAT 96
[2018-12-30 06:56] LABS: Bedside Glucose 120 mg/dL (70-110)
[2018-12-30] MEDS: Iron Polysaccharide Complex 150 MG CAPSULE PO (07:55)
[2018-12-30] MEDS: Aspirin 81 MG TAB.CHEW PO (07:55)
[2018-12-30] MEDS: Ondansetron ODT 4 MG Tablet PO (10:34)
[2018-12-30 10:51] LABS: Bedside Glucose 211 mg/dL (70-110)
[2018-12-30 15:54] VITALS: BP 113/50; PULSE 76; RESP 20; TEMP 36.6; O2SAT 98
[2018-12-30 17:00] LABS: Bedside Glucose 140 mg/dL (70-110)
[2018-12-30 17:12] VITALS: BP 113/50; PULSE 76
[2018-12-30] MEDS: Mag Hydrox/Al Hydrox/Simeth 30 ML UDC PO (18:46)
[2018-12-30] MEDS: Pramipexole Di-HCl 0.125 MG Tablet 0.25 MG PO (21:10)
[2018-12-30] MEDS: Atorvastatin Calcium 80 MG Tablet PO (21:10)
[2018-12-30 21:11] LABS: Bedside Glucose 197 mg/dL (70-110)
[2018-12-30] MEDS: Latanoprost 0.005% 1 Bottle 1 DRP EACH EYE (21:11)
[2018-12-31] MEDS: Glucerna Shake 120 ML LIQUID PO ×4 (05:20→21:05)
[2018-12-31 05:22] VITALS: BP 133/44; PULSE 66
[2018-12-31] MEDS: buPROPion (SR) 150 MG Tablet.SA PO ×2 (05:22→16:42)
[2018-12-31] MEDS: Metoprolol Tartrate 25 MG Tablet 12.5 MG PO ×2 (05:22→16:42)
[2018-12-31] MEDS: APIXABAN 5 MG TABLET PO ×2 (05:22→16:43)
[2018-12-31] MEDS: Senna Tablet 1 TABLET PO ×2 (05:23→16:43)
[2018-12-31] MEDS: Furosemide 40 MG Tablet PO (05:23)
[2018-12-31] MEDS: Levothyroxine 175 MCG Tablet PO (05:23)
[2018-12-31] MEDS: Polyethylene Glycol 3350 17 GM PACKET PO (05:24)
[2018-12-31] MEDS: Citalopram 20 MG Tablet PO (05:24)
[2018-12-31] MEDS: Nystatin Powder 15gm Bottle 1 APPLIC TOPICAL ×2 (05:27→21:05)
[2018-12-31 06:36] LABS: Bedside Glucose 177 mg/dL (70-110)
[2018-12-31 06:46] VITALS: O2SAT 96
[2018-12-31] MEDS: Iron Polysaccharide Complex 150 MG CAPSULE PO (07:55)
[2018-12-31] MEDS: Aspirin 81 MG TAB.CHEW PO (07:56)
[2018-12-31 11:00] LABS: Bedside Glucose 212 mg/dL (70-110)
[2018-12-31] MEDS: oxyCODONE 5 MG Tablet 10 MG PO ×2 (11:08→19:51)
[2018-12-31 16:00] VITALS: BP 122/49; PULSE 63; RESP 18; TEMP 35.6; O2SAT 99
[2018-12-31 16:42] VITALS: BP 122/49; PULSE 63
[2018-12-31 17:00] LABS: Bedside Glucose 122 mg/dL (70-110)
[2018-12-31 21:06] LABS: Bedside Glucose 156 mg/dL (70-110)
[2018-12-31] MEDS: Latanoprost 0.005% 1 Bottle 1 DRP EACH EYE (21:08)
[2018-12-31] MEDS: Atorvastatin Calcium 80 MG Tablet PO (21:08)
[2018-12-31] MEDS: Pramipexole Di-HCl 0.125 MG Tablet 0.25 MG PO (21:08)
[2019-01-01 06:03] VITALS: BP 130/50; PULSE 63
[2019-01-01] MEDS: Citalopram 20 MG Tablet PO (06:03)
[2019-01-01] MEDS: Furosemide 40 MG Tablet PO (06:03)
[2019-01-01] MEDS: Metoprolol Tartrate 25 MG Tablet 12.5 MG PO ×2 (06:03→17:12)
[2019-01-01] MEDS: Senna Tablet 1 TABLET PO ×2 (06:03→17:09)
[2019-01-01] MEDS: buPROPion (SR) 150 MG Tablet.SA PO ×2 (06:05→17:10)
[2019-01-01] MEDS: Nystatin Powder 15gm Bottle 1 APPLIC TOPICAL ×2 (06:05→20:25)
[2019-01-01] MEDS: Glucerna Shake 120 ML LIQUID PO ×4 (06:05→20:26)
[2019-01-01] MEDS: APIXABAN 5 MG TABLET PO ×2 (06:05→17:09)
[2019-01-01] MEDS: Levothyroxine 175 MCG Tablet PO (06:05)
[2019-01-01 06:06] LABS: Bedside Glucose 138 mg/dL (70-110)
[2019-01-01 06:48] VITALS: O2SAT 98
[2019-01-01] MEDS: Aspirin 81 MG TAB.CHEW PO (08:45)
[2019-01-01] MEDS: Iron Polysaccharide Complex 150 MG CAPSULE PO (08:45)
[2019-01-01 11:01] LABS: Bedside Glucose 196 mg/dL (70-110)
--- NOTE | 2019-01-01 12:09 | NURSING ---
Wound vac cannister full so changed at this time.
[2019-01-01 15:40] VITALS: BP 109/78; PULSE 83; RESP 18; TEMP 36.7; O2SAT 94
[2019-01-01 16:20] LABS: Bedside Glucose 207 mg/dL (70-110)
[2019-01-01 17:12] VITALS: PULSE 83
[2019-01-01] MEDS: Latanoprost 0.005% 1 Bottle 1 DRP EACH EYE (20:24)
[2019-01-01] MEDS: Atorvastatin Calcium 80 MG Tablet PO (20:25)
[2019-01-01] MEDS: Pramipexole Di-HCl 0.125 MG Tablet 0.25 MG PO (20:25)
[2019-01-01 21:10] LABS: Bedside Glucose 197 mg/dL (70-110)
[2019-01-02] MEDS: Ondansetron ODT 4 MG Tablet PO ×2 (02:31→11:13)
[2019-01-02] MEDS: oxyCODONE 5 MG Tablet 10 MG PO (02:37)
[2019-01-02] MEDS: Polyethylene Glycol 3350 17 GM PACKET PO (06:05)
[2019-01-02] MEDS: Levothyroxine 175 MCG Tablet PO (06:10)
[2019-01-02] MEDS: Citalopram 20 MG Tablet PO (06:10)
[2019-01-02] MEDS: APIXABAN 5 MG TABLET PO ×2 (06:10→16:50)
[2019-01-02] MEDS: Furosemide 40 MG Tablet PO (06:10)
[2019-01-02] MEDS: Glucerna Shake 120 ML LIQUID PO ×4 (06:10→19:46)
[2019-01-02] MEDS: buPROPion (SR) 150 MG Tablet.SA PO ×2 (06:10→16:50)
[2019-01-02] MEDS: Senna Tablet 1 TABLET PO ×2 (06:10→16:50)
[2019-01-02 06:11] VITALS: BP 113/55; PULSE 62
[2019-01-02] MEDS: Metoprolol Tartrate 25 MG Tablet 12.5 MG PO ×2 (06:11→16:51)
[2019-01-02] MEDS: Nystatin Powder 15gm Bottle 1 APPLIC TOPICAL ×2 (06:11→19:48)
[2019-01-02 06:35] LABS: Bedside Glucose 133 mg/dL (70-110)
[2019-01-02 07:34] LABS: Absolute Neutrophil Count 4.4 X10^3/uL (2.0-7.7); Basophil# 0.02 X10^3/uL; Basophil% 0.3 % (0-1); Eosinophil# 0.45 X10^3/uL; Hematocrit 29.1 % (37-47); Hemoglobin 9.1 g/dl (12.0-15.0); Lymphocyte % 29.1 % (19-41); Mean Corp Hgb Conc 31.3 g/gl (32-36); Mean Corpuscular Hgb 25.6 pg (27.0-32.0); Mean Platelet Vol. 9.9 fl (6.2-12.0); Monocyte# 0.48 X10^3/uL; Monocyte% 6.4 % (0-10); Neutrophil # 4.38 X10^3/uL (2.7-7.7); Neutrophil % 57.9 % (47-70); Platelet Count 198 K/mm3 (150-450); RBC Distribution Width CV 17.1 % (11.6-14.6); RBC Distribution Width SD 51.7 fl (35.1-43.9); Red Blood Count 3.55 M/mm3 (4.2-5.4); White Blood Count 7.6 K/mm3 (4.4-11.0)
[2019-01-02 07:36] LABS: POSITIVE COUNT NO; POSITIVE DIFFERENTIAL NO; POSITIVE MORPHOLOGY NO
[2019-01-02 07:45] LABS: Anion Gap 7 (5-15); BUN 43 mg/dL (7-18); BUN/Creat Ratio 74.7 RATIO (10-20); Calcium,Total 9.1 mg/dL (8.5-10.1); Chloride 103 mmol/L (98-107); Creatinine, Serum 0.58 mg/dL (0.55-1.02); EST Glomerular Filtration Rate 109 mL/min (>60); Est Glom Filt Rate - Afr Amer 132 mL/min (>60); Estimated Creatinine Clearance 42.07 ml/min; Glucose 160 mg/dL (74-106); Potassium 3.8 mmol/L (3.5-5.1); Sodium Level 138 mmol/L (136-145)
--- NOTE | 2019-01-02 07:54 | PCM.TCUNOT ---
Subjective: Resident seen in room, lying in bed, about to eat breakfast. She c/o nausea, states she has nausea, epigastric pain after she eats. She is not constipated on physical exam. She is currently on Ondansetron, Simethicone, and they are not helping. She also has milk of mag ordered, but all GI medication ordered PRN. I think she may benefit from PPI. Currently off antibiotics, CRP trending down. Vitals/I&O's: Vital Signs Temp Pulse Resp BP Pulse Ox 98.1 F 62 18 113/55 L 94 01/01/19 15:40 01/02/19 06:11 01/01/19 15:40 01/02/19 06:11 01/01/19 15:40 Oxygen Flow Rate (L/min) 3 Oxygen Delivery Method Nasal Cannula Weight: 90.747 kg Body Mass Index (BMI) 40.0 Finger Stick Blood Glucose 202 Intake and Output for Last 24 Hours 12/31/18 01/01/19 01/02/19 23:59 23:59 23:59 Intake Total 900 / 900 720 / 720 120 / 120 Output Total 1850 / 1850 1925 / 1925 100 / 100 Balance -950 / -950 -1205 / -1205 Laboratory Results 01/01/19 10:51: POC Glucose 196 H 01/01/19 16:16: POC Glucose 207 H 01/01/19 21:00: POC Glucose 197 H 01/02/19 06:18: POC Glucose 133 H 01/02/19 07:14: Sodium 138, Potassium 3.8, Chloride 103, Carbon Dioxide 28.0, Anion Gap 7, BUN 43 H, Creatinine 0.58, Estim Creat Clear Calc 42.07, Est GFR (MDRD) Af Amer 132, Est GFR (MDRD) Non-Af 109, BUN/Creatinine Ratio 74.7 H, Glucose 160 H, Calcium 9.1 01/02/19 07:14: WBC 7.6, RBC 3.55 L, Hgb 9.1 L, Hct 29.1 L, MCV 82.0, MCH 25.6 L, MCHC 31.3 L, RDW 17.1 H, RDW Differential 51.7 H, Plt Count 198, MPV 9.9, Immature Gran % (Auto) 0.300, Neut % (Auto) 57.9, Lymph % (Auto) 29.1, Otoe % (Auto) 6.4, Eos % (Auto) 6.0 H, Baso % (Auto) 0.3, Absolute Neuts (auto) 4.4, Absolute Lymphs (auto) 2.20, Total Counted Not Reportable Past Medical History Past Medical History (Chronic Problems): Chronic Problems (Last Reviewed 12/11/18 @ 11:49 by Alejandrina Garcias MD) Atherosclerosis of coronary artery of [place] heart without angina pectoris (Chronic) Essential hypertension (Chronic) Anemia (Chronic) Asthma (Chronic) Chronic pneumonia (Chronic) Hyperlipidemia (Chronic) Pilonidal cyst (Chronic) Type 2 diabetes mellitus (Chronic) Hypothyroidism (Chronic) COPD (chronic obstructive pulmonary disease) (Chronic) Medical History: Medical History (Last Reviewed 12/11/18 @ 11:49 by Alejandrina Garcias MD) Atherosclerosis of coronary artery of [place] heart without angina pectoris (Chronic) I25.10 Essential hypertension (Chronic) I10 Anemia (Chronic) D64.9 Asthma (Chronic) J45.909 Chronic pneumonia (Chronic) J18.9 Hyperlipidemia (Chronic) E78.5 Pilonidal cyst (Chronic) L05.91 NSTEMI (non-ST elevated myocardial infarction) (Resolved) I21.4 Open wound of sacroiliac region with complication (Acute) S31.000A Open wound of buttock (Acute) S31.809A bilateral perianal and gluteal areas Type 2 diabetes mellitus (Chronic) E11.9 Hypothyroidism (Chronic) E03.9 COPD (chronic obstructive pulmonary disease) (Chronic) J44.9 Anemia D64.9 Axillary hidradenitis suppurativa L73.2 Chronic pneumonia J18.9 Anxiety F41.9 Asthma J45.909 COPD (chronic obstructive pulmonary disease) J44.9 Cataracts, bilateral H26.9 Depression F32.9 GERD (gastroesophageal reflux disease) K21.9 Glaucoma H40.9 Glaucoma H40.9 Hearing loss H91.90 Neuropathy G62.9 Osteoarthritis M19.90 Rheumatoid arthritis M06.9 Acute respiratory failure J96.00 Hemorrhoids (Resolved) K64.9 Allergies adhesive tape Allergy (Unknown, Verified 12/11/18 11:14) Unknown azithromycin [From Zithromax] Allergy (Unknown, Verified 12/11/18 11:14) Unknown cephalexin [From Keflex] Allergy (Unknown, Verified 12/11/18 11:14) Unknown Home Medications: Ambulatory Orders Medication Instructions Recorded atorvastatin 80 mg tablet 80 mg PO DAILY 10/25/18 bimatoprost 0.01 % eye drops 1 drp OPHTHALMIC QPM 10/25/18 citalopram 20 mg tablet 20 mg PO DAILY 10/25/18 furosemide 40 mg tablet 40 mg PO DAILY 10/25/18 levalbuterol 0.63 mg/3 mL solution 0.63 mg INHALATION ONCE PRN 10/25/18 for nebulization metformin 500 mg tablet 500 mg PO BID 10/25/18 polyethylene glycol 3350 17 gram 17 g PO DAILY PRN 10/25/18 oral powder packet potassium chloride 20 mEq oral 20 meq PO DAILY 10/25/18 packet pumpkin seed extract-soy germ 300 1 cap PO PRN PRN cap 10/25/18 mg capsule ropinirole 0.5 mg tablet 0.5 mg PO QHS 10/25/18 Acetaminophen [Tylenol] 500 mg PO Q6H PRN PRN 12/03/18 Ampicillin/Sulbactam [Unasyn] 3 gm IV Q6H 12/03/18 Budesonide Aerosol [Pulmicort 0.5 mg INHALATION BID.RT 12/03/18 Respules] DiphenhydrAMINE [Benadryl] 25 mg PO Q6H PRN cap 12/03/18 Docusate Sodium [Colace] 100 mg PO BID 12/03/18 Fenofibrate [Tricor] 48 mg PO DAILY 12/03/18 Glucagon 1 mg IM .X1 PRN syringe 12/03/18 Glucerna Shake 120 ml PO 4X/DAY 12/03/18 Insulin Human 75/25 [Humalog Mix 20 unit SUBCUT BID 12/03/18 75-25 Kwikpen] Insulin Lispro [Humalog KwikPen] See Protocol SQ ACHS 12/03/18 Ipratropium/Albuterol Sulfate 3 ml INHALATION Q6HWA.RT 12/03/18 [Duoneb] Iron Polysaccharide Complex 150 mg PO DAILYCM 12/03/18 [Ferrex 150] Latanoprost 0.005% [Xalatan 1 drp OPHTHALMIC (EYE) HS 12/03/18 Opthalmic] Levothyroxine [Synthroid] 175 mcg PO [id number]@0600 12/03/18 Losartan Potassium [Cozaar] 25 mg PO DAILY 12/03/18 Metoprolol Tartrate [Lopressor 25 mg PO BID 12/03/18 (beta juanita)] Nutritional Supplement [Juice - 1 packet PO BIDCM 12/03/18 ORANGE FLAVOR] Nystatin Powder [Mycostatin Powder] 1 applic TOPICAL BID 12/03/18 Ondansetron [Zofran] 4 mg IV Q6H PRN PRN vial 12/03/18 Oxycodone [Oxyir] 10 mg PO Q4H PRN PRN 12/03/18 aspirin 81 mg tablet,delayed 81 mg PO DAILY #30 tab 12/11/18 release Surgical History: Surgical History (Last Reviewed 12/11/18 @ 11:49 by Alejandrina Garcias MD) Hx of carpal tunnel repair (Resolved) Z98.890 bilateral Hx of hysterectomy (Resolved) Z90.710 Surgical History: hysterectomy, total hip arthroplasty, - - Eye surgery, Carpal tunnel release, left hip repair, back surgery. Psychiatric History: Anxiety, Depression HAM FACER History: No pertinent HAM FACER history Lives: Spouse/ Significant Other Smoking Status: Former smoker Tobacco Use: Non-smoker Alcohol: None Drugs: None - *Family History Maternal Family History: Family History (Last Reviewed 12/11/18 @ 11:49 by Alejandrina Garcias MD) Mother Lung cancer Anxiety Arthritis Depression (emotion) Diabetes Sister CVA (cerebral vascular accident) Anxiety Asthma Depression (emotion) Heart disease Aunt Arthritis Depression (emotion) Diabetes Daughter Cancer Grandmother Diabetes Grandfather Heart disease Psychiatric care CVA (cerebral vascular accident) Father COPD (chronic obstructive pulmonary disease) History Items: No pertinent history Paternal Family History: Family History (Last Reviewed 12/11/18 @ 11:49 by Alejandrina Garcias MD) Mother Lung cancer Anxiety Arthritis Depression (emotion) Diabetes Sister CVA (cerebral vascular accident) Anxiety Asthma Depression (emotion) Heart disease Aunt Arthritis Depression (emotion) Diabetes Daughter Cancer Grandmother Diabetes Grandfather Heart disease Psychiatric care CVA (cerebral vascular accident) Father COPD (chronic obstructive pulmonary disease) History Items: No pertinent history Capacity - Capacity Assessment Tool Can the patient make a choice & communicate that choice?: Yes Can the patient understand benefits, risks and alternatives?: Yes Can the patient make a logical, rational choice?: Yes Is the choice the patient makes consistent w/ their values?: Yes Is there an impending, emergent risk to the patient?: No Does the patient have an Advance Directive?: No Is there a Surrogate Available?: Yes i.e. HCPOA: Yes i.e. close relative (spouse, child, parent, sibling)?: Yes Review of Systems Constitutional: Denies: Chills, Fever, Weight Change HEENT: Denies: Head Aches, Sinus Congestion, Sinus Drainage Cardiovascular: Denies: Chest Pain, Palpitations Respiratory: Denies: Cough, Shortness of breath at rest, Sputum production Gastrointestinal: Reports: Abdominal Pain, Nausea. Denies: Vomiting Genitourinary: Denies: Dysuria Musculoskeletal: Denies: Joint Pain, Joint Tenderness Skin: Denies: Rash, Wounds Neurological: Denies: Numbness, Tingling, Focal weakness Psychiatric: Denies: Anxiety, Depression, Homicidal Ideations, Suicidal Ideations Hematologic/ Lymphatic: Denies: Easy Bruising, Easy Bleeding - Physical Exam General: Alert, Oriented x3, Cooperative HEENT: Atraumatic, PERRLA, EOMI, Normocephalic Neck: Supple, No JVD, Negative Carotid Bruits Lungs: Clear to auscultation, Normal air movement Cardiovascular: Regular rate, No murmurs Abdomen: Bowel Sounds Present, Soft, Non Tender Extremities: No edema, Capillary Refill Less than 3 Seconds Skin: No rashes, Ulcer/ Wound - Wound vac applied to buttock. Musculoskeletal: No Tenderness to Palpation of Joints or Extremities Neurological: Cranial nerves II-XII grossly intact Psych/Mental Status: Normal Affect, Appropriate Vital Signs Temp Pulse Resp BP Pulse Ox 98.1 F 62 18 113/55 L 94 01/01/19 15:40 01/02/19 06:11 01/01/19 15:40 01/02/19 06:11 01/01/19 15:40 Oxygen Flow Rate (L/min) 3 Oxygen Delivery Method Nasal Cannula Weight: 90.747 kg Body Mass Index (BMI) 40.0 Finger Stick Blood Glucose 202 Intake and Output for Last 24 Hours 12/31/18 01/01/19 01/02/19 23:59 23:59 23:59 Intake Total 900 / 900 720 / 720 120 / 120 Output Total 1850 / 1850 1925 / 1925 100 / 100 Balance -950 / -950 -1205 / -1205 Laboratory Tests Past 24 Hrs 01/02/19 01/02/19 07:14 07:14 WBC 7.6 RBC 3.55 L Hgb 9.1 L Hct 29.1 L MCV 82.0 MCH 25.6 L MCHC 31.3 L RDW 17.1 H RDW Differential 51.7 H Plt Count 198 MPV 9.9 Immature Gran % (Auto) 0.300 Neut % (Auto) 57.9 Lymph % (Auto) 29.1 [place] % (Auto) 6.4 Eos % (Auto) 6.0 H Baso % (Auto) 0.3 Absolute Neuts (auto) 4.4 Absolute Lymphs (auto) 2.20 Total Counted Not Reportable Sodium 138 Potassium 3.8 Chloride 103 Carbon Dioxide 28.0 Anion Gap 7 BUN 43 H Creatinine 0.58 Estim Creat Clear Calc 42.07 Est GFR (MDRD) Af Amer 132 Est GFR (MDRD) Non-Af 109 BUN/Creatinine Ratio 74.7 H Glucose 160 H Calcium 9.1 POC Glucose 01/02/19 01/01/19 01/01/19 06:18 21:00 16:16 POC Glucose 133 H 197 H 207 H 01/01/19 10:51 POC Glucose 196 H Assessment/Plan All Active Problems (Last Reviewed 12/11/18 @ 11:49 by Alejandrina Garcias MD) NSTEMI (non-ST elevated myocardial infarction) (Resolved) Open wound of sacroiliac region with complication (Acute) Open wound of buttock (Acute) Carpal tunnel syndrome (Resolved) Axillary hidradenitis suppurativa (Resolved) Elevated troponin (Resolved) Former smoker (Resolved) Hemorrhoids (Resolved) Hidradenitis suppurativa (Resolved) Hidradenitis suppurativa of anus (Resolved) Hx of carpal tunnel repair (Resolved) Hx of hysterectomy (Resolved) 73 year old female with below past medical history underwent excision hydradenitis, pilonidal cyst 11/22/[address] Eaton, Diverting colostomy 11/30/[address] Serrato, post-operative course complicated by acute respiratory failure, infected pilonidal cyst, NSTEMI, admitted to TCU with debility, here for rehabilitation, strengthening, wound care, prior to discharge home with spouse. Debility - PT/OT. Pain - Tylenol 1000MG Q6H PRN mild pain, Oxycodone 10MG Q4H PRN moderate pain. Bowel - Miralax 17GM daily, Senokot 1 tablet BID, Dulcolax 10MG PO daily PRN. Pneumonia vaccination - Administer Prevnar 13 and/or Pneumovax 23 as necessary. DVT prophylaxis - Not necessary, on Eliquis. Asthma - Albuterol 1.25MG nebulized Q2H PRN. Infected pilonidal cyst - Done with Augmentin per Dr. Frye, wound vac per wound team. Coronary Artery Disease status post NSTEMI - Metoprolol 12.5MG BID, Losartan 25MG daily, Aspirin 81MG daily. Atrial Fibrillation - Metoprolol 12.5MG twice daily, Eliquis 5MG twice daily. Hyperlipidemia - Atorvastatin 80MG QHS, Tricor 48MG daily (no clinical evidence Tricor helpful in decreasing cardiovascular risk) Depression - Celexa 20MG daily, Bupropion 150MG twice daily. Itching - Hydroxyzine 50MG Q6H PRN. Edema - Lasix 40MG daily. Diabetes Mellitus II - Metformin 500MG BID, Lantus 15 units BID, Glucagon 1MG IM x 1 dose PRN. Nutrition - Glucerna 120ML 4x/day, Juice 1 packet BID. Iron deficiency anemia - Ferrex 150MG daily. Glaucoma - Xalatan 0.005% 1 GTT OU QHS. Hypothyroidism - Levothyroxine 175MCG 5 days/week. Tinea Corporis - Nystatin powder BID abdominal folds, groin. Nausea - Zofran 4MG Q6H PRN. GERD - Pantoprazole 40MG PO x 1 dose, then daily. Skin irritation - Eucerin cream QHS. Hypokalemia - KCL 20MEQ daily. Restless Leg syndrome - Mirapex 0.25MG QHS. Gas - Simethicone 80MG TIDPC.
[2019-01-02] MEDS: Aspirin 81 MG TAB.CHEW PO (07:56)
[2019-01-02] MEDS: Iron Polysaccharide Complex 150 MG CAPSULE PO (07:56)
--- NOTE | 2019-01-02 07:58 | PN_ITS ---
Subjective: Resident seen in room, lying in bed, about to eat breakfast. She c/o nausea, states she has nausea, epigastric pain after she eats. She is not constipated on physical exam. She is currently on Ondansetron, Simethicone, and they are not helping. She also has milk of mag ordered, but all GI medication ordered PRN. I think she may benefit from PPI. Currently off antibiotics, CRP trending down. Vitals/I&O's: Vital Signs Temp Pulse Resp BP Pulse Ox 98.1 F 62 18 113/55 L 94 01/01/19 15:40 01/02/19 06:11 01/01/19 15:40 01/02/19 06:11 01/01/19 15:40 Oxygen Flow Rate (L/min) 3 Oxygen Delivery Method Nasal Cannula Weight: 90.747 kg Body Mass Index (BMI) 40.0 Finger Stick Blood Glucose 202 Intake and Output for Last 24 Hours 12/31/18 01/01/19 01/02/19 23:59 23:59 23:59 Intake Total 900 / 900 720 / 720 120 / 120 Output Total 1850 / 1850 1925 / 1925 100 / 100 Balance -950 / -950 -1205 / -1205 Laboratory Results 01/01/19 10:51: POC Glucose 196 H 01/01/19 16:16: POC Glucose 207 H 01/01/19 21:00: POC Glucose 197 H 01/02/19 06:18: POC Glucose 133 H 01/02/19 07:14: Sodium 138, Potassium 3.8, Chloride 103, Carbon Dioxide 28.0, Anion Gap 7, BUN 43 H, Creatinine 0.58, Estim Creat Clear Calc 42.07, Est GFR (MDRD) Af Amer 132, Est GFR (MDRD) Non-Af 109, BUN/Creatinine Ratio 74.7 H, Glucose 160 H, Calcium 9.1 01/02/19 07:14: WBC 7.6, RBC 3.55 L, Hgb 9.1 L, Hct 29.1 L, MCV 82.0, MCH 25.6 L , MCHC 31.3 L, RDW 17.1 H, RDW Differential 51.7 H, Plt Count 198, MPV 9.9, Immature Gran % (Auto) 0.300, Neut % (Auto) 57.9, Lymph % (Auto) 29.1, Elbert % (Auto) 6.4, Eos % (Auto) 6.0 H, Baso % (Auto) 0.3, Absolute Neuts (auto) 4.4, Absolute Lymphs (auto) 2.20, Total Counted Not Reportable Past Medical History Past Medical History (Chronic Problems): Chronic Problems (Last Reviewed 12/11/18 @ 11:49 by Alejandrina Garcias MD) Atherosclerosis of coronary artery of [place] heart without angina pectoris (Chronic) Essential hypertension (Chronic) Anemia (Chronic) Asthma (Chronic) Chronic pneumonia (Chronic) Hyperlipidemia (Chronic) Pilonidal cyst (Chronic) Type 2 diabetes mellitus (Chronic) Hypothyroidism (Chronic) COPD (chronic obstructive pulmonary disease) (Chronic) Medical History: Medical History (Last Reviewed 12/11/18 @ 11:49 by Alejandrina Garcias MD) Atherosclerosis of coronary artery of [place] heart without angina pectoris (Chronic) I25.10 Essential hypertension (Chronic) I10 Anemia (Chronic) D64.9 Asthma (Chronic) J45.909 Chronic pneumonia (Chronic) J18.9 Hyperlipidemia (Chronic) E78.5 Pilonidal cyst (Chronic) L05.91 NSTEMI (non-ST elevated myocardial infarction) (Resolved) I21.4 Open wound of sacroiliac region with complication (Acute) S31.000A Open wound of buttock (Acute) S31.809A bilateral perianal and gluteal areas Type 2 diabetes mellitus (Chronic) E11.9 Hypothyroidism (Chronic) E03.9 COPD (chronic obstructive pulmonary disease) (Chronic) J44.9 Anemia D64.9 Axillary hidradenitis suppurativa L73.2 Chronic pneumonia J18.9 Anxiety F41.9 Asthma J45.909 COPD (chronic obstructive pulmonary disease) J44.9 Cataracts, bilateral H26.9 Depression F32.9 GERD (gastroesophageal reflux disease) K21.9 Glaucoma H40.9 Glaucoma H40.9 Hearing loss H91.90 Neuropathy G62.9 Osteoarthritis M19.90 Rheumatoid arthritis M06.9 Acute respiratory failure J96.00 Hemorrhoids (Resolved) K64.9 Allergies adhesive tape Allergy (Unknown, Verified 12/11/18 11:14) Unknown azithromycin [From Zithromax] Allergy (Unknown, Verified 12/11/18 11:14) Unknown cephalexin [From Keflex] Allergy (Unknown, Verified 12/11/18 11:14) Unknown Home Medications: Ambulatory Orders Medication Instructions Recorded atorvastatin 80 mg tablet 80 mg PO DAILY 10/25/18 bimatoprost 0.01 % eye drops 1 drp OPHTHALMIC QPM 10/25/18 citalopram 20 mg tablet 20 mg PO DAILY 10/25/18 furosemide 40 mg tablet 40 mg PO DAILY 10/25/18 levalbuterol 0.63 mg/3 mL solution 0.63 mg INHALATION ONCE PRN 10/25/18 for nebulization metformin 500 mg tablet 500 mg PO BID 10/25/18 polyethylene glycol 3350 17 gram 17 g PO DAILY PRN 10/25/18 oral powder packet potassium chloride 20 mEq oral 20 meq PO DAILY 10/25/18 packet pumpkin seed extract-soy germ 300 1 cap PO PRN PRN cap 10/25/18 mg capsule ropinirole 0.5 mg tablet 0.5 mg PO QHS 10/25/18 Acetaminophen [Tylenol] 500 mg PO Q6H PRN PRN 12/03/18 Ampicillin/Sulbactam [Unasyn] 3 gm IV Q6H 12/03/18 Budesonide Aerosol [Pulmicort 0.5 mg INHALATION BID.RT 12/03/18 Respules] DiphenhydrAMINE [Benadryl] 25 mg PO Q6H PRN cap 12/03/18 Docusate Sodium [Colace] 100 mg PO BID 12/03/18 Fenofibrate [Tricor] 48 mg PO DAILY 12/03/18 Glucagon 1 mg IM .X1 PRN syringe 12/03/18 Glucerna Shake 120 ml PO 4X/DAY 12/03/18 Insulin Human 75/25 [Humalog Mix 20 unit SUBCUT BID 12/03/18 75-25 Kwikpen] Insulin Lispro [Humalog KwikPen] See Protocol SQ ACHS 12/03/18 Ipratropium/Albuterol Sulfate 3 ml INHALATION Q6HWA.RT 12/03/18 [Duoneb] Iron Polysaccharide Complex 150 mg PO DAILYCM 12/03/18 [Ferrex 150] Latanoprost 0.005% [Xalatan 1 drp OPHTHALMIC (EYE) HS 12/03/18 Opthalmic] Levothyroxine [Synthroid] 175 mcg PO MoTuWeThFr@0600 12/03/18 Losartan Potassium [Cozaar] 25 mg PO DAILY 12/03/18 Metoprolol Tartrate [Lopressor 25 mg PO BID 12/03/18 (beta juanita)] Nutritional Supplement [Juice - 1 packet PO BIDCM 12/03/18 ORANGE FLAVOR] Nystatin Powder [Mycostatin Powder] 1 applic TOPICAL BID 12/03/18 Ondansetron [Zofran] 4 mg IV Q6H PRN PRN vial 12/03/18 Oxycodone [Oxyir] 10 mg PO Q4H PRN PRN 12/03/18 aspirin 81 mg tablet,delayed 81 mg PO DAILY #30 tab 12/11/18 release Surgical History: Surgical History (Last Reviewed 12/11/18 @ 11:49 by Alejandrina Garcias MD) Hx of carpal tunnel repair (Resolved) Z98.890 bilateral Hx of hysterectomy (Resolved) Z90.710 Surgical History: hysterectomy, total hip arthroplasty, - - Eye surgery, Carpal tunnel release, left hip repair, back surgery. Psychiatric History: Anxiety, Depression LEASE BUYER History: No pertinent LEASE BUYER history Lives: Spouse/ Significant Other Smoking Status: Former smoker Tobacco Use: Non-smoker Alcohol: None Drugs: None - *Family History Maternal Family History: Family History (Last Reviewed 12/11/18 @ 11:49 by Alejandrina Garcias MD) Mother Lung cancer Anxiety Arthritis Depression (emotion) Diabetes Sister CVA (cerebral vascular accident) Anxiety Asthma Depression (emotion) Heart disease Aunt Arthritis Depression (emotion) Diabetes Daughter Cancer Grandmother Diabetes Grandfather Heart disease Psychiatric care CVA (cerebral vascular accident) Father COPD (chronic obstructive pulmonary disease) History Items: No pertinent history Paternal Family History: Family History (Last Reviewed 12/11/18 @ 11:49 by Alejandrina Garcias MD) Mother Lung cancer Anxiety Arthritis Depression (emotion) Diabetes Sister CVA (cerebral vascular accident) Anxiety Asthma Depression (emotion) Heart disease Aunt Arthritis Depression (emotion) Diabetes Daughter Cancer Grandmother Diabetes Grandfather Heart disease Psychiatric care CVA (cerebral vascular accident) Father COPD (chronic obstructive pulmonary disease) History Items: No pertinent history Capacity - Capacity Assessment Tool Can the patient make a choice & communicate that choice?: Yes Can the patient understand benefits, risks and alternatives?: Yes Can the patient make a logical, rational choice?: Yes Is the choice the patient makes consistent w/ their values?: Yes Is there an impending, emergent risk to the patient?: No Does the patient have an Advance Directive?: No Is there a Surrogate Available?: Yes i.e. HCPOA: Yes i.e. close relative (spouse, child, parent, sibling)?: Yes Review of Systems Constitutional: Denies: Chills, Fever, Weight Change HEENT: Denies: Head Aches, Sinus Congestion, Sinus Drainage Cardiovascular: Denies: Chest Pain, Palpitations Respiratory: Denies: Cough, Shortness of breath at rest, Sputum production Gastrointestinal: Reports: Abdominal Pain, Nausea. Denies: Vomiting Genitourinary: Denies: Dysuria Musculoskeletal: Denies: Joint Pain, Joint Tenderness Skin: Denies: Rash, Wounds Neurological: Denies: Numbness, Tingling, Focal weakness Psychiatric: Denies: Anxiety, Depression, Homicidal Ideations, Suicidal Ideations Hematologic/ Lymphatic: Denies: Easy Bruising, Easy Bleeding - Physical Exam General: Alert, Oriented x3, Cooperative HEENT: Atraumatic, PERRLA, EOMI, Normocephalic Neck: Supple, No JVD, Negative Carotid Bruits Lungs: Clear to auscultation, Normal air movement Cardiovascular: Regular rate, No murmurs Abdomen: Bowel Sounds Present, Soft, Non Tender Extremities: No edema, Capillary Refill Less than 3 Seconds Skin: No rashes, Ulcer/ Wound - Wound vac applied to buttock. Musculoskeletal: No Tenderness to Palpation of Joints or Extremities Neurological: Cranial nerves II-XII grossly intact Psych/Mental Status: Normal Affect, Appropriate Vital Signs Temp Pulse Resp BP Pulse Ox 98.1 F 62 18 113/55 L 94 01/01/19 15:40 01/02/19 06:11 01/01/19 15:40 01/02/19 06:11 01/01/19 15:40 Oxygen Flow Rate (L/min) 3 Oxygen Delivery Method Nasal Cannula Weight: 90.747 kg Body Mass Index (BMI) 40.0 Finger Stick Blood Glucose 202 Intake and Output for Last 24 Hours 12/31/18 01/01/19 01/02/19 23:59 23:59 23:59 Intake Total 900 / 900 720 / 720 120 / 120 Output Total 1850 / 1850 1925 / 1925 100 / 100 Balance -950 / -950 -1205 / -1205 Laboratory Tests Past 24 Hrs 01/02/19 01/02/19 07:14 07:14 WBC 7.6 RBC 3.55 L Hgb 9.1 L Hct 29.1 L MCV 82.0 MCH 25.6 L MCHC 31.3 L RDW 17.1 H RDW Differential 51.7 H Plt Count 198 MPV 9.9 Immature Gran % (Auto) 0.300 Neut % (Auto) 57.9 Lymph % (Auto) 29.1 Elbert % (Auto) 6.4 Eos % (Auto) 6.0 H Baso % (Auto) 0.3 Absolute Neuts (auto) 4.4 Absolute Lymphs (auto) 2.20 Total Counted Not Reportable Sodium 138 Potassium 3.8 Chloride 103 Carbon Dioxide 28.0 Anion Gap 7 BUN 43 H Creatinine 0.58 Estim Creat Clear Calc 42.07 Est GFR (MDRD) Af Amer 132 Est GFR (MDRD) Non-Af 109 BUN/Creatinine Ratio 74.7 H Glucose 160 H Calcium 9.1 POC Glucose 01/02/19 01/01/19 01/01/19 06:18 21:00 16:16 POC Glucose 133 H 197 H 207 H 01/01/19 10:51 POC Glucose 196 H Assessment/Plan All Active Problems (Last Reviewed 12/11/18 @ 11:49 by Alejandrina Garcias MD) NSTEMI (non-ST elevated myocardial infarction) (Resolved) Open wound of sacroiliac region with complication (Acute) Open wound of buttock (Acute) Carpal tunnel syndrome (Resolved) Axillary hidradenitis suppurativa (Resolved) Elevated troponin (Resolved) Former smoker (Resolved) Hemorrhoids (Resolved) Hidradenitis suppurativa (Resolved) Hidradenitis suppurativa of anus (Resolved) Hx of carpal tunnel repair (Resolved) Hx of hysterectomy (Resolved) 73 year old female with below past medical history underwent excision hydradenitis, pilonidal cyst 11/22/[address] Eaton, Diverting colostomy 11/30/[address] Serrato, post-operative course complicated by acute respiratory failure, infected pilonidal cyst, NSTEMI, admitted to TCU with debility, here for rehabilitation, strengthening, wound care, prior to discharge home with spouse. * Debility - PT/OT. * Pain - Tylenol 1000MG Q6H PRN mild pain, Oxycodone 10MG Q4H PRN moderate pain. * Bowel - Miralax 17GM daily, Senokot 1 tablet BID, Dulcolax 10MG PO daily PRN. * Pneumonia vaccination - Administer Prevnar 13 and/or Pneumovax 23 as nec essary. * DVT prophylaxis - Not necessary, on Eliquis. * Asthma - Albuterol 1.25MG nebulized Q2H PRN. * Infected pilonidal cyst - Done with Augmentin per Dr. Frye, wound vac per wound team. * Coronary Artery Disease status post NSTEMI - Metoprolol 12.5MG BID, Losartan 25MG daily, Aspirin 81MG daily. * Atrial Fibrillation - Metoprolol 12.5MG twice daily, Eliquis 5MG twice daily. * Hyperlipidemia - Atorvastatin 80MG QHS, Tricor 48MG daily (no clinical evidence Tricor helpful in decreasing cardiovascular risk) * Depression - Celexa 20MG daily, Bupropion 150MG twice daily. * Itching - Hydroxyzine 50MG Q6H PRN. * Edema - Lasix 40MG daily. * Diabetes Mellitus II - Metformin 500MG BID, Lantus 15 units BID, Glucagon 1MG IM x 1 dose PRN. * Nutrition - Glucerna 120ML 4x/day, Juice 1 packet BID. * Iron deficiency anemia - Ferrex 150MG daily. * Glaucoma - Xalatan 0.005% 1 GTT OU QHS. * Hypothyroidism - Levothyroxine 175MCG 5 days/week. * Tinea Corporis - Nystatin powder BID abdominal folds, groin. * Nausea - Zofran 4MG Q6H PRN. * GERD - Pantoprazole 40MG PO x 1 dose, then daily. * Skin irritation - Eucerin cream QHS. * Hypokalemia - KCL 20MEQ daily. * Restless Leg syndrome - Mirapex 0.25MG QHS. * Gas - Simethicone 80MG TIDPC.
--- NOTE | 2019-01-02 08:52 | PCA ---
lpatient refulsed to burp her ileostomy bag
[2019-01-02] MEDS: Pantoprazole Sodium 40 MG Tablet PO (08:55)
[2019-01-02 11:26] LABS: Bedside Glucose 216 mg/dL (70-110)
[2019-01-02 12:20] VITALS: PULSE 80
--- NOTE | 2019-01-02 15:26 | NURSING ---
wound photo: sacral/elisha-anal
[2019-01-02 16:00] VITALS: BP 109/43; PULSE 72; RESP 16; TEMP 37; O2SAT 96
[2019-01-02 16:51] VITALS: PULSE 72
[2019-01-02 16:55] LABS: Bedside Glucose 176 mg/dL (70-110)
--- NOTE | 2019-01-02 18:06 | NURSING ---
pt c/o dizziness, diaphoresis, clammy when walking with therapy. states it happens every day. dr juarez notified, new order for orthos
[2019-01-02] MEDS: Pramipexole Di-HCl 0.125 MG Tablet 0.25 MG PO (19:52)
[2019-01-02] MEDS: Latanoprost 0.005% 1 Bottle 1 DRP EACH EYE (19:52)
[2019-01-02] MEDS: Atorvastatin Calcium 80 MG Tablet PO (19:52)
[2019-01-02] MEDS: Acetaminophen 500 MG Tablet 1000 MG PO (19:53)
[2019-01-02 21:01] LABS: Bedside Glucose 219 mg/dL (70-110)
[2019-01-03] MEDS: Pantoprazole Sodium 40 MG Tablet PO (05:49)
[2019-01-03] MEDS: APIXABAN 5 MG TABLET PO ×2 (05:49→17:50)
[2019-01-03 05:50] VITALS: BP 130/52; PULSE 62
[2019-01-03] MEDS: Metoprolol Tartrate 25 MG Tablet 12.5 MG PO ×2 (05:50→17:50)
[2019-01-03] MEDS: Polyethylene Glycol 3350 17 GM PACKET PO (05:50)
[2019-01-03] MEDS: buPROPion (SR) 150 MG Tablet.SA PO ×2 (05:50→17:51)
[2019-01-03] MEDS: Nystatin Powder 15gm Bottle 1 APPLIC TOPICAL ×2 (05:50→20:10)
[2019-01-03] MEDS: Glucerna Shake 120 ML LIQUID PO ×4 (05:50→20:09)
[2019-01-03] MEDS: Citalopram 20 MG Tablet PO (05:50)
[2019-01-03] MEDS: Furosemide 40 MG Tablet PO (05:50)
[2019-01-03] MEDS: Levothyroxine 175 MCG Tablet PO (05:50)
[2019-01-03] MEDS: Senna Tablet 1 TABLET PO ×2 (05:52→17:50)
[2019-01-03 06:20] VITALS: BP 130/52; BP 133/38; BP 134/49; PULSE 62; PULSE 83
[2019-01-03 06:39] VITALS: O2SAT 96
[2019-01-03 06:50] LABS: Bedside Glucose 140 mg/dL (70-110)
[2019-01-03 06:50] LABS: Bedside Glucose 170 mg/dL (70-110)
[2019-01-03] MEDS: Iron Polysaccharide Complex 150 MG CAPSULE PO (09:49)
[2019-01-03] MEDS: Aspirin 81 MG TAB.CHEW PO (09:50)
[2019-01-03 11:11] LABS: Bedside Glucose 286 mg/dL (70-110)
[2019-01-03] MEDS: 0.9% Normal Saline 1,000 ML 999 ML IV (11:11)
--- NOTE | 2019-01-03 14:01 | NURSING ---
Colostomy appliance had been changed by this nurse yesterday. peristomal skin intact.
[2019-01-03 16:00] VITALS: BP 121/46; PULSE 67; RESP 20; TEMP 36.4; O2SAT 97
[2019-01-03 17:00] LABS: Bedside Glucose 169 mg/dL (70-110)
[2019-01-03 17:50] VITALS: BP 121/46; PULSE 67
[2019-01-03] MEDS: Latanoprost 0.005% 1 Bottle 1 DRP EACH EYE (20:07)
[2019-01-03] MEDS: Atorvastatin Calcium 80 MG Tablet PO (20:10)
[2019-01-03] MEDS: Pramipexole Di-HCl 0.125 MG Tablet 0.25 MG PO (20:10)
[2019-01-03] MEDS: Acetaminophen 500 MG Tablet 1000 MG PO (20:16)
[2019-01-03] MEDS: 0.9% NaCl Midline IV Flush IV (20:17)
[2019-01-03 21:11] LABS: Bedside Glucose 218 mg/dL (70-110)
[2019-01-04] MEDS: oxyCODONE 5 MG Tablet 10 MG PO ×2 (02:21→20:03)
[2019-01-04 06:07] VITALS: BP 118/59; PULSE 63
[2019-01-04] MEDS: Metoprolol Tartrate 25 MG Tablet 12.5 MG PO ×2 (06:07→17:23)
[2019-01-04] MEDS: Citalopram 20 MG Tablet PO (06:07)
[2019-01-04] MEDS: APIXABAN 5 MG TABLET PO ×2 (06:07→17:22)
[2019-01-04] MEDS: Polyethylene Glycol 3350 17 GM PACKET PO (06:07)
[2019-01-04] MEDS: Levothyroxine 175 MCG Tablet PO (06:08)
[2019-01-04] MEDS: Senna Tablet 1 TABLET PO ×2 (06:08→17:24)
[2019-01-04] MEDS: Pantoprazole Sodium 40 MG Tablet PO (06:08)
[2019-01-04] MEDS: buPROPion (SR) 150 MG Tablet.SA PO ×2 (06:08→17:24)
[2019-01-04] MEDS: Furosemide 40 MG Tablet PO (06:08)
[2019-01-04] MEDS: Glucerna Shake 120 ML LIQUID PO ×4 (06:09→20:05)
[2019-01-04] MEDS: Nystatin Powder 15gm Bottle 1 APPLIC TOPICAL ×2 (06:09→20:07)
[2019-01-04 06:36] VITALS: O2SAT 95
--- NOTE | 2019-01-04 06:41 | NURSING ---
Addendum entered by Katheryn Lara 01/04/19 08:11: New order for UA C&S. Original Note: Pt c/o of burning to vaginal area early this AM. Pt reported pain feeling like a bladder infection. Hailee area washed with soap and water, patted dry. Hailee area lakshmi. Urine clear and yellow. Temp 97.8. Will update Dr Will.
[2019-01-04 06:51] LABS: Bedside Glucose 155 mg/dL (70-110)
[2019-01-04] MEDS: Aspirin 81 MG TAB.CHEW PO (09:40)
[2019-01-04] MEDS: Iron Polysaccharide Complex 150 MG CAPSULE PO (09:41)
[2019-01-04 11:13] LABS: Mucous, Urine 0 SEEN /hpf (<or=2+)
[2019-01-04 11:16] LABS: Bedside Glucose 302 mg/dL (70-110)
[2019-01-04 11:20] LABS: Color, Urine Yellow (Yellow); Glucose, Dipstick 50 mg/dl (Normal); Ketone-Dipstick Negative (Negative); Leukocyte Esterase-Dipstick 100 /ul (Negative); Nitrite-Dipstick Negative (Negative); Occult Blood-Urine Negative /ul (Negative); Protein-Dipstick Negative (Negative); Urine Bilirubin Dipstick Negative (Negative); Urine Clarity Clear (Clear); Urine Urobilinogen Normal (Normal)
[2019-01-04 11:22] LABS: Red Blood Cells-Urine 0-5 SEEN /hpf (0-5); White Blood Cells 0-5 SEEN /hpf (0-5)
[2019-01-04 11:23] LABS: Bacteria RARE /hpf (None Seen); Squamous Epithelial Cells - UA 0-5 SEEN /hpf (5-10)
[2019-01-04 15:39] VITALS: BP 115/49; PULSE 72; RESP 18; TEMP 36.6; O2SAT 96
[2019-01-04 16:55] LABS: Bedside Glucose 163 mg/dL (70-110)
[2019-01-04 17:23] VITALS: PULSE 72
[2019-01-04] MEDS: 0.9% NaCl Midline IV Flush IV (17:26)
--- NOTE | 2019-01-04 19:06 | NURSING ---
UA results reviewed with Dr. Will, wait for culture results.
[2019-01-04] MEDS: Pramipexole Di-HCl 0.125 MG Tablet 0.25 MG PO (20:06)
[2019-01-04] MEDS: Atorvastatin Calcium 80 MG Tablet PO (20:06)
[2019-01-04] MEDS: Latanoprost 0.005% 1 Bottle 1 DRP EACH EYE (20:07)
[2019-01-04 21:25] LABS: Bedside Glucose 200 mg/dL (70-110)
[2019-01-04 22:20] VITALS: PULSE 64; O2SAT 98
[2019-01-05] MEDS: Polyethylene Glycol 3350 17 GM PACKET PO (05:09)
[2019-01-05] MEDS: Glucerna Shake 120 ML LIQUID PO ×3 (05:10→16:55)
[2019-01-05] MEDS: APIXABAN 5 MG TABLET PO ×2 (05:10→16:56)
[2019-01-05] MEDS: Citalopram 20 MG Tablet PO (05:10)
[2019-01-05 05:11] VITALS: BP 118/41; PULSE 61
[2019-01-05] MEDS: Senna Tablet 1 TABLET PO ×2 (05:11→16:55)
[2019-01-05] MEDS: Nystatin Powder 15gm Bottle 1 APPLIC TOPICAL ×2 (05:11→19:47)
[2019-01-05] MEDS: Pantoprazole Sodium 40 MG Tablet PO (05:11)
[2019-01-05] MEDS: buPROPion (SR) 150 MG Tablet.SA PO ×2 (05:11→16:55)
[2019-01-05] MEDS: Furosemide 40 MG Tablet PO (05:11)
[2019-01-05] MEDS: Metoprolol Tartrate 25 MG Tablet 12.5 MG PO ×2 (05:11→16:55)
[2019-01-05 06:31] LABS: Bedside Glucose 160 mg/dL (70-110)
[2019-01-05 07:59] VITALS: O2SAT 99
[2019-01-05] MEDS: Iron Polysaccharide Complex 150 MG CAPSULE PO (08:40)
[2019-01-05] MEDS: Aspirin 81 MG TAB.CHEW PO (08:40)
[2019-01-05 11:40] LABS: Bedside Glucose 222 mg/dL (70-110)
--- NOTE | 2019-01-05 13:06 | PCA ---
Patients provided patients lunch
[2019-01-05 16:00] VITALS: BP 114/54; PULSE 61; RESP 18; TEMP 36.9; O2SAT 99
[2019-01-05 16:55] VITALS: BP 114/54; PULSE 61
[2019-01-05 17:06] LABS: Bedside Glucose 181 mg/dL (70-110)
[2019-01-05] MEDS: Ciprofloxacin 250 MG Tablet PO (19:43)
[2019-01-05] MEDS: Latanoprost 0.005% 1 Bottle 1 DRP EACH EYE (19:48)
[2019-01-05] MEDS: Atorvastatin Calcium 80 MG Tablet PO (21:11)
[2019-01-05] MEDS: Pramipexole Di-HCl 0.125 MG Tablet 0.25 MG PO (21:11)
[2019-01-05] MEDS: hydrOXYzine PAM 25 MG Capsule 50 MG PO (21:16)
[2019-01-05 21:21] LABS: Bedside Glucose 155 mg/dL (70-110)
[2019-01-06] MEDS: Polyethylene Glycol 3350 17 GM PACKET PO (05:58)
[2019-01-06 06:01] VITALS: BP 133/64; PULSE 62
[2019-01-06] MEDS: Ciprofloxacin 250 MG Tablet PO ×2 (06:01→17:17)
[2019-01-06] MEDS: Metoprolol Tartrate 25 MG Tablet 12.5 MG PO ×2 (06:01→17:19)
[2019-01-06] MEDS: Glucerna Shake 120 ML LIQUID PO ×3 (06:01→17:17)
[2019-01-06] MEDS: Furosemide 40 MG Tablet PO (06:01)
[2019-01-06] MEDS: APIXABAN 5 MG TABLET PO ×2 (06:01→17:19)
[2019-01-06] MEDS: Citalopram 20 MG Tablet PO (06:01)
[2019-01-06] MEDS: Pantoprazole Sodium 40 MG Tablet PO (06:02)
[2019-01-06] MEDS: Nystatin Powder 15gm Bottle 1 APPLIC TOPICAL ×2 (06:02→20:40)
[2019-01-06] MEDS: Senna Tablet 1 TABLET PO ×2 (06:02→17:20)
[2019-01-06] MEDS: buPROPion (SR) 150 MG Tablet.SA PO ×2 (06:02→17:20)
[2019-01-06 06:31] LABS: Bedside Glucose 125 mg/dL (70-110)
[2019-01-06] MEDS: Aspirin 81 MG TAB.CHEW PO (08:04)
[2019-01-06] MEDS: Iron Polysaccharide Complex 150 MG CAPSULE PO (08:04)
[2019-01-06 08:12] VITALS: O2SAT 98
--- NOTE | 2019-01-06 08:16 | PCA ---
Patient rang out to have her colostomy bag burped air removed, went back to patients room and encouraged her to perform task on her own, patient said that she was unable to do it, so i held the stoma area while patient removed the bag around the seal and i gently let the air release pt asked who told me that she was to do it on her own, and i said the RN wanted us to encourage colostomy care to prepare to discharge.
[2019-01-06 11:21] LABS: Bedside Glucose 188 mg/dL (70-110)
--- NOTE | 2019-01-06 13:07 | PCA ---
family brought in lunch
[2019-01-06 13:52] VITALS: BP 117/49; PULSE 70; RESP 18; TEMP 37.1; O2SAT 92
[2019-01-06 17:11] LABS: Bedside Glucose 259 mg/dL (70-110)
[2019-01-06 17:19] VITALS: BP 117/49; PULSE 70
[2019-01-06] MEDS: Atorvastatin Calcium 80 MG Tablet PO (20:35)
[2019-01-06] MEDS: Pramipexole Di-HCl 0.125 MG Tablet 0.25 MG PO (20:35)
[2019-01-06] MEDS: Acetaminophen 500 MG Tablet 1000 MG PO (20:38)
[2019-01-06] MEDS: Latanoprost 0.005% 1 Bottle 1 DRP EACH EYE (20:40)
[2019-01-06 20:45] VITALS: PULSE 76; O2SAT 97
--- NOTE | 2019-01-06 20:50 | NURSING ---
Upon assessment blood noted in colostomy bag. This nurse removed bag and a small amount of blood noted to be around stoma site. This nurse removed the whole appliance. The skin was cleansed with warm water. Skin around the rim of the stoma noted to be excoriated. A new appliance was applied. Pt tolerated well and denied any pain. Pt resting in bed with call light in reach.
[2019-01-06 21:16] LABS: Bedside Glucose 236 mg/dL (70-110)
[2019-01-07] MEDS: Polyethylene Glycol 3350 17 GM PACKET PO (05:24)
[2019-01-07 05:28] VITALS: BP 110/69; PULSE 70
[2019-01-07] MEDS: Ciprofloxacin 250 MG Tablet PO ×2 (05:28→16:54)
[2019-01-07] MEDS: oxyCODONE 5 MG Tablet 10 MG PO (05:28)
[2019-01-07] MEDS: Pantoprazole Sodium 40 MG Tablet PO (05:28)
[2019-01-07] MEDS: Metoprolol Tartrate 25 MG Tablet 12.5 MG PO ×2 (05:28→16:54)
[2019-01-07] MEDS: APIXABAN 5 MG TABLET PO ×2 (05:28→16:55)
[2019-01-07] MEDS: buPROPion (SR) 150 MG Tablet.SA PO ×2 (05:28→16:55)
[2019-01-07] MEDS: Citalopram 20 MG Tablet PO (05:28)
[2019-01-07] MEDS: Furosemide 40 MG Tablet PO (05:28)
[2019-01-07] MEDS: Levothyroxine 175 MCG Tablet PO (05:28)
[2019-01-07] MEDS: Senna Tablet 1 TABLET PO ×2 (05:28→16:56)
[2019-01-07] MEDS: Nystatin Powder 15gm Bottle 1 APPLIC TOPICAL ×2 (05:31→21:26)
[2019-01-07 06:31] LABS: Bedside Glucose 149 mg/dL (70-110)
[2019-01-07 06:36] VITALS: O2SAT 96
[2019-01-07] MEDS: Aspirin 81 MG TAB.CHEW PO (07:26)
[2019-01-07] MEDS: Iron Polysaccharide Complex 150 MG CAPSULE PO (07:26)
[2019-01-07 11:01] LABS: Bedside Glucose 228 mg/dL (70-110)
[2019-01-07] MEDS: Glucerna Shake 120 ML LIQUID PO ×2 (11:10→16:53)
--- NOTE | 2019-01-07 14:52 | NURSING ---
Pt states that nurse had noticed blood in the ostomy appliance yesterday. appliance was changed at that time. according to nursing note, the peristomal skin was irritated. no blood noted in appliance at this time. will monitor.
[2019-01-07 15:02] VITALS: BP 122/47; PULSE 78; RESP 16; TEMP 36.4; O2SAT 99
--- NOTE | 2019-01-07 15:15 | NURSING ---
wound photo: sacral/elisha-anal
[2019-01-07 16:46] LABS: Bedside Glucose 219 mg/dL (70-110)
[2019-01-07 16:54] VITALS: PULSE 78
--- NOTE | 2019-01-07 17:51 | NURSING ---
DR. MARTIN AWARE OF C/S RESULTS. NO N.O. AT THIS TIME.
[2019-01-07 21:16] LABS: Bedside Glucose 193 mg/dL (70-110)
[2019-01-07] MEDS: Acetaminophen 500 MG Tablet 1000 MG PO (21:23)
[2019-01-07] MEDS: Latanoprost 0.005% 1 Bottle 1 DRP EACH EYE (21:26)
[2019-01-07] MEDS: Pramipexole Di-HCl 0.125 MG Tablet 0.25 MG PO (21:27)
[2019-01-07] MEDS: Atorvastatin Calcium 80 MG Tablet PO (21:27)
--- NOTE | 2019-01-07 23:14 | NURSING ---
Pt called out to nurses's requesting someone provide ostomy care. RN into show assisting TRACK OILER how to preform task with pt. RN attempted to provide with with gloves to complete ostomy care and pt stated, I don't do that! RN reminded pt that they have completed ostomy care together in the past. Pt informed RN she does not do any ostomy care, her does it for her. RN encouraged pt to complete task with staff, pt continued to refuse. Will continue to encourage pt ADLs with ostomy care.
[2019-01-08] MEDS: Ciprofloxacin 250 MG Tablet PO ×2 (05:49→16:21)
[2019-01-08] MEDS: APIXABAN 5 MG TABLET PO ×2 (05:49→16:21)
[2019-01-08] MEDS: Citalopram 20 MG Tablet PO (05:49)
[2019-01-08] MEDS: Furosemide 40 MG Tablet PO (05:49)
[2019-01-08 05:50] VITALS: BP 113/55; PULSE 63
[2019-01-08] MEDS: buPROPion (SR) 150 MG Tablet.SA PO ×2 (05:50→16:21)
[2019-01-08] MEDS: Polyethylene Glycol 3350 17 GM PACKET PO (05:50)
[2019-01-08] MEDS: Levothyroxine 175 MCG Tablet PO (05:50)
[2019-01-08] MEDS: Pantoprazole Sodium 40 MG Tablet PO (05:50)
[2019-01-08] MEDS: Metoprolol Tartrate 25 MG Tablet 12.5 MG PO ×2 (05:50→16:22)
[2019-01-08] MEDS: Senna Tablet 1 TABLET PO ×2 (05:50→16:21)
[2019-01-08] MEDS: Nystatin Powder 15gm Bottle 1 APPLIC TOPICAL ×2 (05:51→22:29)
[2019-01-08] MEDS: Glucerna Shake 120 ML LIQUID PO ×4 (05:51→22:26)
[2019-01-08] MEDS: Bisacodyl 5 MG Tablet 10 MG PO (05:56)
[2019-01-08 06:10] LABS: Bedside Glucose 164 mg/dL (70-110)
[2019-01-08 06:40] VITALS: O2SAT 97
[2019-01-08] MEDS: Aspirin 81 MG TAB.CHEW PO (08:03)
[2019-01-08] MEDS: Iron Polysaccharide Complex 150 MG CAPSULE PO (08:04)
[2019-01-08 11:00] LABS: Bedside Glucose 211 mg/dL (70-110)
[2019-01-08 16:00] VITALS: BP 127/56; PULSE 79; RESP 18; TEMP 36.3; O2SAT 97
--- NOTE | 2019-01-08 16:02 | NURSING ---
Old baxter removed, elisha care given using warm water and soap, new open areas noted to bilat labial folds, MARK Smith wound nurse called, she states to use loli to protect. New baxter inserted using sterile technique, pt painful, asking for pain meds after.
[2019-01-08] MEDS: oxyCODONE 5 MG Tablet 10 MG PO (16:13)
[2019-01-08] MEDS: Menthol/Lanolin/Calamine/Znox 113 GM Tube 1 APPLIC TOPICAL (16:16)
[2019-01-08 16:22] VITALS: BP 127/56; PULSE 68
[2019-01-08 17:11] LABS: Bedside Glucose 253 mg/dL (70-110)
[2019-01-08 21:31] LABS: Bedside Glucose 214 mg/dL (70-110)
[2019-01-08] MEDS: Atorvastatin Calcium 80 MG Tablet PO (22:26)
[2019-01-08] MEDS: Pramipexole Di-HCl 0.125 MG Tablet 0.25 MG PO (22:26)
[2019-01-08] MEDS: Latanoprost 0.005% 1 Bottle 1 DRP EACH EYE (22:27)
[2019-01-09] MEDS: Furosemide 40 MG Tablet PO (05:50)
[2019-01-09] MEDS: Pantoprazole Sodium 40 MG Tablet PO (05:50)
[2019-01-09] MEDS: APIXABAN 5 MG TABLET PO ×2 (05:50→17:16)
[2019-01-09] MEDS: buPROPion (SR) 150 MG Tablet.SA PO ×2 (05:50→17:12)
[2019-01-09] MEDS: Senna Tablet 1 TABLET PO ×2 (05:50→17:12)
[2019-01-09] MEDS: Ciprofloxacin 250 MG Tablet PO ×2 (05:50→17:12)
[2019-01-09] MEDS: Levothyroxine 175 MCG Tablet PO (05:50)
[2019-01-09] MEDS: Citalopram 20 MG Tablet PO (05:50)
[2019-01-09 05:51] VITALS: PULSE 68
[2019-01-09] MEDS: Metoprolol Tartrate 25 MG Tablet 12.5 MG PO ×2 (05:51→17:17)
[2019-01-09] MEDS: Polyethylene Glycol 3350 17 GM PACKET PO (05:53)
[2019-01-09] MEDS: Glucerna Shake 120 ML LIQUID PO ×3 (05:56→17:11)
[2019-01-09] MEDS: Menthol/Lanolin/Calamine/Znox 113 GM Tube 1 APPLIC TOPICAL ×2 (05:58→17:20)
[2019-01-09] MEDS: Nystatin Powder 15gm Bottle 1 APPLIC TOPICAL ×2 (05:59→20:47)
[2019-01-09 06:11] LABS: Anion Gap 7 (5-15); BUN 33 mg/dL (7-18); BUN/Creat Ratio 56.7 RATIO (10-20); Calcium,Total 8.9 mg/dL (8.5-10.1); Chloride 105 mmol/L (98-107); Creatinine, Serum 0.58 mg/dL (0.55-1.02); EST Glomerular Filtration Rate 108 mL/min (>60); Est Glom Filt Rate - Afr Amer 131 mL/min (>60); Estimated Creatinine Clearance 42.07 ml/min; Glucose 127 mg/dL (74-106); Potassium 4.2 mmol/L (3.5-5.1); Sodium Level 142 mmol/L (136-145)
[2019-01-09 06:13] LABS: Basophil# 0.01 X10^3/uL; Basophil% 0.1 % (0-1); Eosinophil# 0.49 X10^3/uL; Eosinophils% 5.7 % (0-5); Hematocrit 29.6 % (37-47); Lymphocyte % 27.8 % (19-41); Mean Corp Hgb Conc 30.4 g/gl (32-36); Mean Corpuscular Hgb 25.4 pg (27.0-32.0); Mean Corpuscular Volume 83.4 fL (81-99); Mean Platelet Vol. 10.9 fl (6.2-12.0); Monocyte# 0.63 X10^3/uL; Monocyte% 7.3 % (0-10); Neutrophil # 5.02 X10^3/uL (2.7-7.7); Neutrophil % 58.3 % (47-70); Platelet Count 204 K/mm3 (150-450); RBC Distribution Width CV 17.5 % (11.6-14.6); RBC Distribution Width SD 51.4 fl (35.1-43.9); Red Blood Count 3.55 M/mm3 (4.2-5.4); White Blood Count 8.6 K/mm3 (4.4-11.0)
[2019-01-09 06:17] LABS: POSITIVE COUNT NO; POSITIVE DIFFERENTIAL NO; POSITIVE MORPHOLOGY NO
[2019-01-09 06:45] LABS: Bedside Glucose 141 mg/dL (70-110)
[2019-01-09] MEDS: Aspirin 81 MG TAB.CHEW PO (08:29)
[2019-01-09] MEDS: Iron Polysaccharide Complex 150 MG CAPSULE PO (08:29)
[2019-01-09 11:05] LABS: Bedside Glucose 226 mg/dL (70-110)
--- NOTE | 2019-01-09 11:06 | NURSING ---
Staff encouraging patient to burp own colostomy bag to prepare for when patient is discharged home. Patient became very agitated stating her will do it. Patient reluctantly went through burping process with staff and was able to burp bag effectively without issue. While BASE BRANDER was in room later during the day, patient still very irritable and upset about learning how to burp colostomy bag and having to get up in chair for therapy. Support offered.
[2019-01-09 15:54] VITALS: BP 97/44; PULSE 73; RESP 20; TEMP 36.7; O2SAT 95
[2019-01-09 16:56] LABS: Bedside Glucose 204 mg/dL (70-110)
[2019-01-09 17:17] VITALS: BP 111/46; PULSE 75
--- NOTE | 2019-01-09 18:15 | NURSING ---
Therapy reports that patient often has diaphoretic episodes where she becomes dizzy and mildy SOB. Diastolic BP's trending lower, Dr. Will updated. New order to D/C metoprolol and decrease lasix to 20mg.
[2019-01-09] MEDS: Acetaminophen 500 MG Tablet 1000 MG PO (20:44)
[2019-01-09] MEDS: Latanoprost 0.005% 1 Bottle 1 DRP EACH EYE (20:44)
[2019-01-09] MEDS: Pramipexole Di-HCl 0.125 MG Tablet 0.25 MG PO (20:46)
[2019-01-09] MEDS: Atorvastatin Calcium 80 MG Tablet PO (20:47)
[2019-01-09 20:56] LABS: Bedside Glucose 249 mg/dL (70-110)
[2019-01-10] MEDS: Nystatin Powder 15gm Bottle 1 APPLIC TOPICAL ×2 (06:34→20:19)
[2019-01-10] MEDS: Menthol/Lanolin/Calamine/Znox 113 GM Tube 1 APPLIC TOPICAL ×2 (06:34→17:12)
[2019-01-10] MEDS: Levothyroxine 175 MCG Tablet PO (06:38)
[2019-01-10] MEDS: APIXABAN 5 MG TABLET PO ×2 (06:38→17:11)
[2019-01-10] MEDS: buPROPion (SR) 150 MG Tablet.SA PO ×2 (06:38→17:11)
[2019-01-10] MEDS: Pantoprazole Sodium 40 MG Tablet PO (06:38)
[2019-01-10] MEDS: Senna Tablet 1 TABLET PO ×2 (06:38→17:11)
[2019-01-10] MEDS: Furosemide 20 MG Tablet PO (06:38)
[2019-01-10] MEDS: Citalopram 20 MG Tablet PO (06:38)
[2019-01-10] MEDS: Ciprofloxacin 250 MG Tablet PO ×2 (06:38→17:11)
[2019-01-10] MEDS: Polyethylene Glycol 3350 17 GM PACKET PO (06:38)
[2019-01-10 06:40] LABS: Bedside Glucose 150 mg/dL (70-110)
[2019-01-10] MEDS: Glucerna Shake 120 ML LIQUID PO ×4 (06:44→20:20)
[2019-01-10] MEDS: Iron Polysaccharide Complex 150 MG CAPSULE PO (08:14)
[2019-01-10] MEDS: Aspirin 81 MG TAB.CHEW PO (08:14)
[2019-01-10 11:06] LABS: Bedside Glucose 200 mg/dL (70-110)
--- NOTE | 2019-01-10 14:55 | MDS.RN ---
Information for the mds was obtained from review of the clinical record, interview of resident, staff, and direct observation of resident's care.
[2019-01-10 15:19] VITALS: BP 117/54; PULSE 77; RESP 20; TEMP 36.6; O2SAT 95
--- NOTE | 2019-01-10 16:31 | NURSING ---
per Dr. juarez, appt set up wit hDr. Sanchez for bleeding labia majora
[2019-01-10 17:01] LABS: Bedside Glucose 440 mg/dL (70-110)
--- NOTE | 2019-01-10 17:56 | NURSING ---
dr. juarez notified of bs 440. n.o. humalog 10units x1.
[2019-01-10] MEDS: Insulin Lispro 100 UNIT/ML INSULN.PEN 10 UNIT SC (18:00)
[2019-01-10] MEDS: Atorvastatin Calcium 80 MG Tablet PO (20:18)
[2019-01-10] MEDS: Pramipexole Di-HCl 0.125 MG Tablet 0.25 MG PO (20:18)
[2019-01-10] MEDS: Latanoprost 0.005% 1 Bottle 1 DRP EACH EYE (20:18)
[2019-01-10 21:10] LABS: Bedside Glucose 228 mg/dL (70-110)
[2019-01-11] MEDS: Senna Tablet 1 TABLET PO ×2 (05:25→17:05)
[2019-01-11] MEDS: Nystatin Powder 15gm Bottle 1 APPLIC TOPICAL ×2 (05:25→21:21)
[2019-01-11] MEDS: buPROPion (SR) 150 MG Tablet.SA PO ×2 (05:25→17:05)
[2019-01-11] MEDS: Furosemide 20 MG Tablet PO (05:25)
[2019-01-11] MEDS: Menthol/Lanolin/Calamine/Znox 113 GM Tube 1 APPLIC TOPICAL ×2 (05:25→17:07)
[2019-01-11] MEDS: Polyethylene Glycol 3350 17 GM PACKET PO (05:25)
[2019-01-11] MEDS: Levothyroxine 175 MCG Tablet PO (05:25)
[2019-01-11] MEDS: APIXABAN 5 MG TABLET PO ×2 (05:25→17:05)
[2019-01-11] MEDS: Pantoprazole Sodium 40 MG Tablet PO (05:25)
[2019-01-11] MEDS: Citalopram 20 MG Tablet PO (05:25)
[2019-01-11] MEDS: Glucerna Shake 120 ML LIQUID PO ×4 (05:26→21:20)
[2019-01-11] MEDS: Ciprofloxacin 250 MG Tablet PO ×2 (05:26→17:05)
[2019-01-11 06:46] LABS: Bedside Glucose 187 mg/dL (70-110)
[2019-01-11 06:55] VITALS: O2SAT 95
[2019-01-11] MEDS: Iron Polysaccharide Complex 150 MG CAPSULE PO (08:32)
[2019-01-11] MEDS: Aspirin 81 MG TAB.CHEW PO (08:32)
[2019-01-11 11:16] LABS: Bedside Glucose 246 mg/dL (70-110)
[2019-01-11 15:17] VITALS: BP 119/52; PULSE 88; RESP 18; TEMP 37; O2SAT 97
[2019-01-11 17:01] LABS: Bedside Glucose 422 mg/dL (70-110)
--- NOTE | 2019-01-11 17:47 | NURSING ---
Dr. Will updated on pt's BS being 422 before supper, N.O. for 10 units of Humalog x1. Pt aware.
[2019-01-11] MEDS: Insulin Lispro 100 UNIT/ML INSULN.PEN 10 UNIT SC (17:58)
[2019-01-11 21:16] LABS: Bedside Glucose 160 mg/dL (70-110)
[2019-01-11] MEDS: Latanoprost 0.005% 1 Bottle 1 DRP EACH EYE (21:20)
[2019-01-11] MEDS: Atorvastatin Calcium 80 MG Tablet PO (21:21)
[2019-01-11] MEDS: Pramipexole Di-HCl 0.125 MG Tablet 0.25 MG PO (21:21)
[2019-01-12] MEDS: Glucerna Shake 120 ML LIQUID PO ×4 (06:36→21:19)
[2019-01-12] MEDS: Pantoprazole Sodium 40 MG Tablet PO (06:39)
[2019-01-12] MEDS: Citalopram 20 MG Tablet PO (06:39)
[2019-01-12] MEDS: Furosemide 20 MG Tablet PO (06:39)
[2019-01-12] MEDS: buPROPion (SR) 150 MG Tablet.SA PO ×2 (06:39→17:29)
[2019-01-12] MEDS: APIXABAN 5 MG TABLET PO ×2 (06:39→17:29)
[2019-01-12] MEDS: Ciprofloxacin 250 MG Tablet PO ×2 (06:39→17:29)
[2019-01-12] MEDS: Menthol/Lanolin/Calamine/Znox 113 GM Tube 1 APPLIC TOPICAL ×2 (06:42→17:33)
[2019-01-12] MEDS: Polyethylene Glycol 3350 17 GM PACKET PO (06:43)
[2019-01-12] MEDS: Nystatin Powder 15gm Bottle 1 APPLIC TOPICAL ×2 (06:43→19:46)
[2019-01-12] MEDS: Senna Tablet 1 TABLET PO (06:43)
[2019-01-12 06:46] LABS: Bedside Glucose 136 mg/dL (70-110)
[2019-01-12] MEDS: Aspirin 81 MG TAB.CHEW PO (08:16)
[2019-01-12] MEDS: Iron Polysaccharide Complex 150 MG CAPSULE PO (08:17)
[2019-01-12 10:56] LABS: Bedside Glucose 257 mg/dL (70-110)
[2019-01-12 14:54] VITALS: BP 108/50; PULSE 67; RESP 18; TEMP 36.4; O2SAT 97
[2019-01-12 16:51] LABS: Bedside Glucose 174 mg/dL (70-110)
[2019-01-12] MEDS: Senna Tablet 2 TABLET PO (17:29)
[2019-01-12] MEDS: Latanoprost 0.005% 1 Bottle 1 DRP EACH EYE (19:46)
[2019-01-12] MEDS: Pramipexole Di-HCl 0.125 MG Tablet 0.25 MG PO (21:19)
[2019-01-12] MEDS: Atorvastatin Calcium 80 MG Tablet PO (21:19)
[2019-01-12] MEDS: oxyCODONE 5 MG Tablet 10 MG PO (21:22)
[2019-01-12 21:30] LABS: Bedside Glucose 188 mg/dL (70-110)
[2019-01-13] MEDS: Menthol/Lanolin/Calamine/Znox 113 GM Tube 1 APPLIC TOPICAL ×2 (05:59→17:24)
[2019-01-13] MEDS: Citalopram 20 MG Tablet PO (06:00)
[2019-01-13] MEDS: APIXABAN 5 MG TABLET PO ×2 (06:00→17:20)
[2019-01-13] MEDS: Glucerna Shake 120 ML LIQUID PO ×4 (06:00→20:03)
[2019-01-13] MEDS: Pantoprazole Sodium 40 MG Tablet PO (06:01)
[2019-01-13] MEDS: Senna Tablet 2 TABLET PO ×2 (06:01→17:21)
[2019-01-13] MEDS: Polyethylene Glycol 3350 17 GM PACKET PO (06:01)
[2019-01-13] MEDS: buPROPion (SR) 150 MG Tablet.SA PO ×2 (06:01→17:21)
[2019-01-13] MEDS: Nystatin Powder 15gm Bottle 1 APPLIC TOPICAL ×2 (06:01→20:04)
[2019-01-13] MEDS: Furosemide 20 MG Tablet PO (06:01)
[2019-01-13 06:44] VITALS: O2SAT 97
[2019-01-13 06:46] LABS: Bedside Glucose 145 mg/dL (70-110)
[2019-01-13] MEDS: Iron Polysaccharide Complex 150 MG CAPSULE PO (08:27)
[2019-01-13] MEDS: Aspirin 81 MG TAB.CHEW PO (08:27)
[2019-01-13 10:51] LABS: Bedside Glucose 188 mg/dL (70-110)
[2019-01-13 15:16] VITALS: BP 117/51; PULSE 72; RESP 18; TEMP 36.2; O2SAT 97
[2019-01-13 17:01] LABS: Bedside Glucose 162 mg/dL (70-110)
[2019-01-13] MEDS: Pramipexole Di-HCl 0.125 MG Tablet 0.25 MG PO (20:03)
[2019-01-13] MEDS: Latanoprost 0.005% 1 Bottle 1 DRP EACH EYE (20:03)
[2019-01-13] MEDS: Atorvastatin Calcium 80 MG Tablet PO (20:03)
[2019-01-13 21:25] LABS: Bedside Glucose 218 mg/dL (70-110)
[2019-01-13] MEDS: Mag Hydrox/Al Hydrox/Simeth 30 ML UDC PO (22:38)
[2019-01-14] MEDS: Glucerna Shake 120 ML LIQUID PO ×4 (05:51→20:25)
[2019-01-14] MEDS: Furosemide 20 MG Tablet PO (05:51)
[2019-01-14] MEDS: Levothyroxine 175 MCG Tablet PO (05:51)
[2019-01-14] MEDS: buPROPion (SR) 150 MG Tablet.SA PO ×2 (05:51→17:16)
[2019-01-14] MEDS: Polyethylene Glycol 3350 17 GM PACKET PO (05:51)
[2019-01-14] MEDS: APIXABAN 5 MG TABLET PO ×2 (05:51→17:15)
[2019-01-14] MEDS: Senna Tablet 2 TABLET PO ×2 (05:51→17:15)
[2019-01-14] MEDS: Pantoprazole Sodium 40 MG Tablet PO (05:51)
[2019-01-14] MEDS: Citalopram 20 MG Tablet PO (05:52)
[2019-01-14] MEDS: Menthol/Lanolin/Calamine/Znox 113 GM Tube 1 APPLIC TOPICAL ×2 (05:54→17:18)
[2019-01-14] MEDS: Nystatin Powder 15gm Bottle 1 APPLIC TOPICAL ×2 (05:55→20:25)
[2019-01-14 06:41] LABS: Bedside Glucose 182 mg/dL (70-110)
[2019-01-14 06:47] VITALS: O2SAT 96
[2019-01-14] MEDS: Iron Polysaccharide Complex 150 MG CAPSULE PO (08:22)
[2019-01-14] MEDS: Aspirin 81 MG TAB.CHEW PO (08:22)
[2019-01-14 10:45] LABS: Bedside Glucose 283 mg/dL (70-110)
[2019-01-14 15:03] VITALS: BP 140/67; PULSE 84; RESP 18; TEMP 37; O2SAT 96
--- NOTE | 2019-01-14 15:12 | NURSING ---
wound photo: sacrum/elisha-anal
[2019-01-14 15:56] LABS: Bedside Glucose 241 mg/dL (70-110)
--- NOTE | 2019-01-14 15:57 | NURSING ---
therapy can to this nurse and stated she just got done with pt for therapy and she now feels clammy. vitals done and blood sugar checked. reported to beryl villarreal
[2019-01-14 16:00] VITALS: BP 137/61; PULSE 93; RESP 18; TEMP 36.6; O2SAT 93
[2019-01-14] MEDS: Pramipexole Di-HCl 0.125 MG Tablet 0.25 MG PO (20:24)
[2019-01-14] MEDS: Atorvastatin Calcium 80 MG Tablet PO (20:24)
[2019-01-14] MEDS: Latanoprost 0.005% 1 Bottle 1 DRP EACH EYE (20:24)
[2019-01-14 21:46] LABS: Bedside Glucose 213 mg/dL (70-110)
[2019-01-15] MEDS: Polyethylene Glycol 3350 17 GM PACKET PO (05:22)
[2019-01-15] MEDS: Citalopram 20 MG Tablet PO (05:26)
[2019-01-15] MEDS: Pantoprazole Sodium 40 MG Tablet PO (05:26)
[2019-01-15] MEDS: buPROPion (SR) 150 MG Tablet.SA PO ×2 (05:26→17:37)
[2019-01-15] MEDS: APIXABAN 5 MG TABLET PO ×2 (05:26→17:38)
[2019-01-15] MEDS: Levothyroxine 175 MCG Tablet PO (05:26)
[2019-01-15] MEDS: Senna Tablet 2 TABLET PO ×2 (05:26→17:37)
[2019-01-15] MEDS: Furosemide 20 MG Tablet PO (05:26)
[2019-01-15] MEDS: Nystatin Powder 15gm Bottle 1 APPLIC TOPICAL ×2 (05:27→19:54)
[2019-01-15] MEDS: Menthol/Lanolin/Calamine/Znox 113 GM Tube 1 APPLIC TOPICAL ×3 (05:27→19:54)
[2019-01-15] MEDS: Glucerna Shake 120 ML LIQUID PO ×4 (05:28→19:56)
[2019-01-15 06:41] LABS: Bedside Glucose 186 mg/dL (70-110)
[2019-01-15] MEDS: Aspirin 81 MG TAB.CHEW PO (08:37)
[2019-01-15] MEDS: Iron Polysaccharide Complex 150 MG CAPSULE PO (08:37)
[2019-01-15] MEDS: oxyCODONE 5 MG Tablet 10 MG PO (10:35)
[2019-01-15 10:55] LABS: Bedside Glucose 199 mg/dL (70-110)
--- NOTE | 2019-01-15 14:42 | NURSING ---
Patient's was able to change the ostomy appliance with minimal assistance. was able to cut the opening on the flange to stoma size, apply paste, and snap on the pouch. reviewed ways to empty the pouch as well. strongly encouraged the patient to start emptying the appliance as well. is not always going to be there to empty the appliance. patient states she does get up at home. will need MUCH encouragement to get patient to care at all for the stoma. will continue teaching with patient and .
[2019-01-15 16:00] VITALS: BP 110/53; PULSE 64; RESP 20; TEMP 36.3; O2SAT 97
[2019-01-15 17:11] LABS: Bedside Glucose 189 mg/dL (70-110)
[2019-01-15] MEDS: Latanoprost 0.005% 1 Bottle 1 DRP EACH EYE (19:53)
[2019-01-15] MEDS: Atorvastatin Calcium 80 MG Tablet PO (19:55)
[2019-01-15] MEDS: Pramipexole Di-HCl 0.125 MG Tablet 0.25 MG PO (19:55)
[2019-01-15 21:01] LABS: Bedside Glucose 219 mg/dL (70-110)
[2019-01-16] MEDS: Senna Tablet 2 TABLET PO ×2 (05:26→17:04)
[2019-01-16] MEDS: Citalopram 20 MG Tablet PO (05:26)
[2019-01-16] MEDS: Polyethylene Glycol 3350 17 GM PACKET PO (05:26)
[2019-01-16] MEDS: Furosemide 20 MG Tablet PO (05:26)
[2019-01-16] MEDS: Nystatin Powder 15gm Bottle 1 APPLIC TOPICAL ×2 (05:27→20:42)
[2019-01-16] MEDS: buPROPion (SR) 150 MG Tablet.SA PO ×2 (05:27→17:04)
[2019-01-16] MEDS: Pantoprazole Sodium 40 MG Tablet PO (05:27)
[2019-01-16] MEDS: APIXABAN 5 MG TABLET PO ×2 (05:27→17:04)
[2019-01-16] MEDS: Glucerna Shake 120 ML LIQUID PO ×4 (05:27→20:44)
[2019-01-16] MEDS: Levothyroxine 175 MCG Tablet PO (05:27)
[2019-01-16 05:31] LABS: Absolute Lymphocyte Count 2.19 X10^3/ul (0.83-4.51); Absolute Neutrophil Count 4.8 X10^3/uL (2.0-7.7); Basophil# 0.02 X10^3/uL; Basophil% 0.2 % (0-1); Eosinophil# 0.35 X10^3/uL; Eosinophils% 4.4 % (0-5); Hematocrit 28.5 % (37-47); Hemoglobin 6.8 g/dl (12.0-15.0); Lymphocyte # 2.19 X10^3/ul (4.0); Lymphocyte % 27.3 % (19-41); Mean Corp Hgb Conc 23.9 g/gl (32-36); Mean Corpuscular Hgb 19.9 pg (27.0-32.0); Mean Corpuscular Volume 83.6 fL (81-99); Mean Platelet Vol. 10.2 fl (6.2-12.0); Monocyte# 0.58 X10^3/uL; Monocyte% 7.2 % (0-10); Neutrophil # 4.81 X10^3/uL (2.7-7.7); Platelet Count 222 K/mm3 (150-450); RBC Distribution Width CV 16.9 % (11.6-14.6); RBC Distribution Width SD 49.9 fl (35.1-43.9); Red Blood Count 3.41 M/mm3 (4.2-5.4)
[2019-01-16 06:00] LABS: Anion Gap 8 (5-15); BUN 24 mg/dL (7-18); BUN/Creat Ratio 52.3 RATIO (10-20); Calcium,Total 8.6 mg/dL (8.5-10.1); Chloride 104 mmol/L (98-107); Creatinine, Serum 0.46 mg/dL (0.55-1.02); EST Glomerular Filtration Rate 142 mL/min (>60); Est Glom Filt Rate - Afr Amer 172 mL/min (>60); Estimated Creatinine Clearance 42.07 ml/min; Glucose 149 mg/dL (74-106); Potassium 4.1 mmol/L (3.5-5.1); Sodium Level 139 mmol/L (136-145)
[2019-01-16 06:04] LABS: POSITIVE COUNT NO; POSITIVE DIFFERENTIAL NO; POSITIVE MORPHOLOGY NO
[2019-01-16] MEDS: Menthol/Lanolin/Calamine/Znox 113 GM Tube 1 APPLIC TOPICAL ×2 (06:04→17:09)
[2019-01-16 06:15] LABS: Bedside Glucose 152 mg/dL (70-110)
[2019-01-16 06:52] VITALS: O2SAT 97
[2019-01-16] MEDS: Aspirin 81 MG TAB.CHEW PO (08:01)
[2019-01-16] MEDS: Iron Polysaccharide Complex 150 MG CAPSULE PO (08:01)
[2019-01-16 08:25] LABS: Hematocrit 29.8 % (37-47); Hemoglobin 9.1 g/dl (12.0-15.0)
[2019-01-16 11:21] LABS: Bedside Glucose 212 mg/dL (70-110)
[2019-01-16 16:00] VITALS: BP 123/51; PULSE 88; RESP 18; TEMP 36.4; O2SAT 96
[2019-01-16 17:01] LABS: Bedside Glucose 223 mg/dL (70-110)
[2019-01-16] MEDS: Latanoprost 0.005% 1 Bottle 1 DRP EACH EYE (20:41)
[2019-01-16] MEDS: Atorvastatin Calcium 80 MG Tablet PO (20:42)
[2019-01-16] MEDS: Pramipexole Di-HCl 0.125 MG Tablet 0.25 MG PO (20:42)
[2019-01-16 21:36] LABS: Bedside Glucose 148 mg/dL (70-110)
[2019-01-16] MEDS: Acetaminophen 500 MG Tablet 1000 MG PO (21:47)
[2019-01-16] MEDS: oxyCODONE 5 MG Tablet 10 MG PO (23:19)
[2019-01-17] MEDS: Furosemide 20 MG Tablet PO (05:46)
[2019-01-17] MEDS: Pantoprazole Sodium 40 MG Tablet PO (05:46)
[2019-01-17] MEDS: Levothyroxine 175 MCG Tablet PO (05:46)
[2019-01-17] MEDS: APIXABAN 5 MG TABLET PO ×2 (05:46→17:23)
[2019-01-17] MEDS: buPROPion (SR) 150 MG Tablet.SA PO ×2 (05:46→17:24)
[2019-01-17] MEDS: Polyethylene Glycol 3350 17 GM PACKET PO (05:46)
[2019-01-17] MEDS: Senna Tablet 2 TABLET PO ×2 (05:46→17:24)
[2019-01-17] MEDS: Citalopram 20 MG Tablet PO (05:46)
[2019-01-17] MEDS: Nystatin Powder 15gm Bottle 1 APPLIC TOPICAL ×2 (05:47→20:21)
[2019-01-17] MEDS: Glucerna Shake 120 ML LIQUID PO ×4 (05:47→20:18)
[2019-01-17 06:00] LABS: Bedside Glucose 112 mg/dL (70-110)
[2019-01-17 07:04] VITALS: O2SAT 97
[2019-01-17] MEDS: Aspirin 81 MG TAB.CHEW PO (09:07)
[2019-01-17] MEDS: Iron Polysaccharide Complex 150 MG CAPSULE PO (09:08)
[2019-01-17 10:56] LABS: Bedside Glucose 180 mg/dL (70-110)
[2019-01-17] MEDS: hydrOXYzine PAM 25 MG Capsule 50 MG PO ×2 (10:58→22:01)
[2019-01-17 15:47] VITALS: BP 120/44; PULSE 68; RESP 16; TEMP 36.6; O2SAT 97
[2019-01-17 17:05] LABS: Bedside Glucose 169 mg/dL (70-110)
[2019-01-17] MEDS: oxyCODONE 5 MG Tablet 10 MG PO (17:27)
[2019-01-17] MEDS: Menthol/Lanolin/Calamine/Znox 113 GM Tube 1 APPLIC TOPICAL (17:28)
[2019-01-17] MEDS: Pramipexole Di-HCl 0.125 MG Tablet 0.25 MG PO (20:19)
[2019-01-17] MEDS: Latanoprost 0.005% 1 Bottle 1 DRP EACH EYE (20:19)
[2019-01-17] MEDS: Atorvastatin Calcium 80 MG Tablet PO (20:19)
[2019-01-17 21:21] LABS: Bedside Glucose 258 mg/dL (70-110)
[2019-01-18] MEDS: buPROPion (SR) 150 MG Tablet.SA PO ×2 (06:10→17:04)
[2019-01-18] MEDS: Glucerna Shake 120 ML LIQUID PO ×4 (06:10→20:23)
[2019-01-18] MEDS: Menthol/Lanolin/Calamine/Znox 113 GM Tube 1 APPLIC TOPICAL ×2 (06:10→17:07)
[2019-01-18] MEDS: Levothyroxine 175 MCG Tablet PO (06:11)
[2019-01-18] MEDS: Pantoprazole Sodium 40 MG Tablet PO (06:11)
[2019-01-18] MEDS: Citalopram 20 MG Tablet PO (06:11)
[2019-01-18] MEDS: Polyethylene Glycol 3350 17 GM PACKET PO (06:11)
[2019-01-18] MEDS: APIXABAN 5 MG TABLET PO ×2 (06:11→17:05)
[2019-01-18] MEDS: Furosemide 20 MG Tablet PO (06:11)
[2019-01-18] MEDS: Senna Tablet 2 TABLET PO ×2 (06:11→17:04)
[2019-01-18] MEDS: Nystatin Powder 15gm Bottle 1 APPLIC TOPICAL ×2 (06:12→20:21)
[2019-01-18] MEDS: oxyCODONE 5 MG Tablet 10 MG PO (06:18)
[2019-01-18 06:26] LABS: Bedside Glucose 120 mg/dL (70-110)
[2019-01-18 06:28] VITALS: O2SAT 97
[2019-01-18] MEDS: Aspirin 81 MG TAB.CHEW PO (08:15)
[2019-01-18] MEDS: Iron Polysaccharide Complex 150 MG CAPSULE PO (08:15)
[2019-01-18 10:46] LABS: Bedside Glucose 224 mg/dL (70-110)
--- NOTE | 2019-01-18 12:34 | CASEMGMT ---
Social Work Spoke with and pt about discharge plans. IDT recommending DC 01/28 - both parties agreed. Referrals made to [facility] for PT/OT/SN and [facility] bed with ren Castro for w/c to assist with wound healing. continuing with colostomy and catheter training to manage at home. Plan: DC home w/ 01/28 with HHC and DME. Ericka Michaels, UTILITY AR[employer]IST [employer]
[2019-01-18 15:17] VITALS: BP 128/36; PULSE 69; RESP 18; O2SAT 95
--- NOTE | 2019-01-18 15:35 | DCINST_ITS ---
- Discharge Diagnoses Current Active Problems: Current Active and Chronic Problems (Last Reviewed 12/11/18 @ 11:49 by Alejandrina Garcias MD) Anemia (Chronic) Asthma (Chronic) Chronic pneumonia (Chronic) Hyperlipidemia (Chronic) Pilonidal cyst (Chronic) You will use the following diet at home:: No restrictions, Regular Your food should be the consistency of: Regular Your liquids should be the consistency of: Regular/Thin Discharge Activity: Return to Normal Activity, May Shower, Use Walker Weight Bearing Status: Weight bearing as tolerated Call your doctor if you observe: Fever of 101 or Higher, Inability to urinate, Inability to have a bowel movement, Shortness of breath, Chest pain, Uncontrolled pain Allergies/Adverse Reactions: Allergies adhesive tape Allergy (Unknown, Verified 12/11/18 11:14) Unknown azithromycin [From Zithromax] Allergy (Unknown, Verified 12/11/18 11:14) Unknown cephalexin [From Keflex] Allergy (Unknown, Verified 12/11/18 11:14) Unknown Medications to take at Discharge atorvastatin 80 mg tablet 80 mg PO DAILY 10/25/18 bimatoprost 0.01 % eye drops 1 drp OPHTHALMIC QPM 10/25/18 citalopram 20 mg tablet 20 mg PO DAILY 10/25/18 furosemide 40 mg tablet 40 mg PO DAILY 10/25/18 levalbuterol 0.63 mg/3 mL solution for nebulization 0.63 mg INHALATION ONCE PRN 10/25/18 metformin 500 mg tablet 500 mg PO BID 10/25/18 polyethylene glycol 3350 17 gram oral powder packet 17 g PO DAILY PRN 10/25/18 potassium chloride 20 mEq oral packet 20 meq PO DAILY 10/25/18 pumpkin seed extract-soy germ 300 mg capsule 1 cap PO PRN PRN cap 10/25/18 ropinirole 0.5 mg tablet 0.5 mg PO QHS 10/25/18 Budesonide Aerosol [Pulmicort Respules] 0.5 mg INHALATION BID.RT 12/03/18 Latanoprost 0.005% [Xalatan Opthalmic] 1 drp OPHTHALMIC (EYE) HS 12/03/18 Levothyroxine [Synthroid] 175 mcg PO MoTuWeThFr@0600 12/03/18 Nystatin Powder [Mycostatin Powder] 1 applic TOPICAL BID 12/03/18 Acetaminophen [Tylenol] 1,000 mg PO Q6H PRN PRN tablet 01/18/19 Apixaban [Eliquis] 5 mg PO BID #60 tablet 01/18/19 Bisacodyl [Dulcolax] 10 mg PO DAILY PRN tablet 01/18/19 Insulin Glargine [Lantus SoloStar Pen] 15 units SC BID #1 pen 01/18/19 Iron Polysaccharide Complex [Ferrex 150] 150 mg PO DAILYCM #30 capsule 01/18/19 Menthol/Lanolin/Calamine/Znox [Calmoseptine Ointment] 1 applic TOPICAL BID tube 01/18/19 Mineral Oil/Petrolatum,White [Eucerin] 1 applic TOPICAL QHS jar 01/18/19 Nutritional Supplement [Juice - ORANGE FLAVOR] 1 packet PO BIDCM #60 packet 01/18/19 Oxycodone [Oxyir] 10 mg PO Q4H PRN PRN 7 Days #60 tab 01/18/19 Pantoprazole Sodium [Protonix] 40 mg PO DAILY #30 tablet 01/18/19 Senna [Senokot] 2 tablet PO BID tablet 01/18/19 buPROPion SR [Wellbutrin SR (150mg tablets)] 150 mg PO BID #60 tablet.sa 01/18/19 hydrOXYzine pamoate capsule [Vistaril pamoate capsule] 50 mg PO 4X/DAY PRN PRN #120 capsule 01/18/19 The following prescriptions were given: Oxycodone [Oxyir] 10 mg PO Q4H PRN PRN 7 Days #60 tab PRN Reason: Severe Pain (6-10/10) hydrOXYzine pamoate capsule [Vistaril pamoate capsule] 50 mg PO 4X/DAY PRN PRN #120 capsule PRN Reason: Itching Iron Polysaccharide Complex [Ferrex 150] 150 mg PO DAILYCM #30 capsule Pantoprazole Sodium [Protonix] 40 mg PO DAILY #30 tablet Apixaban [Eliquis] 5 mg PO BID #60 tablet buPROPion SR [Wellbutrin SR (150mg tablets)] 150 mg PO BID #60 tablet.sa Insulin Glargine [Lantus SoloStar Pen] 15 units SC BID #1 pen Nutritional Supplement [Juice - ORANGE FLAVOR] 1 packet PO BIDCM #60 packet Primary Care Physician: Inez Rangel NP-C [Primary Care Provider] - Please follow up with your Primary Care Physician in: 1 week. Test Results: Test results from this visit will be discussed in further detail at your follow- up appointment, if applicable. Please Follow Up With: Dr Garcias (cardiology) When: 2 weeks. Please Follow Up With: Rehana Sanchez MD When: 2 weeks. Proposed Discharge Date: 01/28/19
--- NOTE | 2019-01-18 15:38 | DS.PCM_ITS ---
Discharge Date and Diagnosis Date of Admission: 12/03/18 Date of Discharge: 01/28/19 - Secondary Discharge Diagnosis Chronic Problems (Last Reviewed 12/11/18 @ 11:49 by Alejandrina Garcias MD) Atherosclerosis of coronary artery of [place] heart without angina pectoris (Chronic) Essential hypertension (Chronic) Anemia (Chronic) Asthma (Chronic) Chronic pneumonia (Chronic) Hyperlipidemia (Chronic) Pilonidal cyst (Chronic) Type 2 diabetes mellitus (Chronic) Hypothyroidism (Chronic) COPD (chronic obstructive pulmonary disease) (Chronic) Hospital Course and Treatment Imaging Results: 12/03/18 17:12 Diet: Cardiac/Low Cholesterol Is pt able to select menu?: Yes Diet Comments: [address] helene, no added Na Clinical Impression(s) from Imaging Studies Chest X-Ray 12/07/18 10:15 IMPRESSION: Mild bibasilar atelectasis versus early pneumonitis. Potential small left basilar pleural effusion. No pneumothorax. Electronically Signed: Jesus Perry MD at 11:17 EDT , Service support , Labs (Last 48 Hours) 01/16/19 01/16/19 01/17/19 16:44 21:31 05:54 POC Glucose 223 H 148 H 112 H 01/17/19 01/17/19 01/17/19 10:52 17:02 21:05 POC Glucose 180 H 169 H 258 H 01/18/19 01/18/19 06:09 10:39 POC Glucose 120 H 224 H Consultations 12/04/18 00:17 Consult: Onc/Wound/industrial engineering analyst Routine Comment: Reason for Consult:: Sacrum/Hailee-rectal wound Operations: None Procedures: None Summary of Care Provided: The patient is a 73 year old Female with below past medical history underwent excision hydradenitis, pilonidal cyst 11/22/[address] Eaton, Diverting colostomy 11/30/[address] Serrato, post-operative course complicated by acute respiratory failure, infected pilonidal cyst, NSTEMI, admitted to TCU with debility, here for rehabilitation, strengthening, wound care, prior to discharge home with spouse. Resident needs hospital bed with low air loss mattress for healing of wound. Resident requires frequent turning and repositioning in bed to relieve pain for comfort. This cannot be maintained in regular bed. Resident requires wheelchair, resident unable to ambulate with a cane or walker and requires a wheelchair for mobility. Resident requires roho cushion, pressure relieving wheelchair cushion for healing of wound. Discharge home with spouse, Home Health Services for PT/OT/SN, [employer] for hospital bed, low airloss mattress, roho cushion, wheelchair to assist with wound healing. to continue colostomy, catheter training for home management. - Physical Exam Vital Signs Temp Pulse Resp BP Pulse Ox 97.8 F 69 18 128/36 H 95 01/17/19 15:47 01/18/19 15:17 01/18/19 15:17 01/18/19 15:17 01/18/19 15:17 Oxygen Flow Rate (L/min) 3 Oxygen Delivery Method Room Air Weight: 93.128 kg Body Mass Index (BMI) 40.0 Finger Stick Blood Glucose 202 Orthostatic Vital Signs Start: 01/02/19 18:07 Freq: Status: Active Protocol: Activity Type Activity Date Activity User E-Sign Co-Sign Detail Recorded Client Recorded Date Recorded By Document 01/03/19 06:20 AMR [id number] 01/03/19 07:28 AMR 01/03/19 06:20 Orthostatic Vitals Standing -Blood Pressure (90/60-120/80) 134/49 H -Extremity Use Left Arm -Pulse Rate (60-100) 83 Sitting -Blood Pressure (90/60-120/80) 133/38 H -Extremity Use Left Arm -Pulse Rate (60-100) 62 Lying -Blood Pressure (90/60-120/80) 130/52 H -Extremity Use Left Arm -Pulse Rate (60-100) 62 Intake and Output for Last 24 Hours 01/16/19 01/17/19 01/18/19 23:59 23:59 23:59 Intake Total 720 / 720 660 / 660 700 / 700 Output Total 750 / 750 1190 / 1190 750 / 750 Balance -30 / -30 -530 / -530 -50 / -50 POC Glucose 01/18/19 01/18/19 01/17/19 10:39 06:09 21:05 POC Glucose 224 H 120 H 258 H 01/17/19 17:02 POC Glucose 169 H Discharge Diet: No Restrictions Discharge Activity: Return to Normal Activity, May Shower, Use Walker Weight Bearing Status: Weight bearing as tolerated Call your doctor if you observe: Fever of 101 or Higher, Inability to urinate, Inability to have a bowel movement, Shortness of breath, Chest pain, Uncontrolled pain Home Medications: Medications to take at Discharge atorvastatin 80 mg tablet 80 mg PO DAILY 10/25/18 bimatoprost 0.01 % eye drops 1 drp OPHTHALMIC QPM 10/25/18 citalopram 20 mg tablet 20 mg PO DAILY 10/25/18 furosemide 40 mg tablet 40 mg PO DAILY 10/25/18 levalbuterol 0.63 mg/3 mL solution for nebulization 0.63 mg INHALATION ONCE PRN 10/25/18 metformin 500 mg tablet 500 mg PO BID 10/25/18 polyethylene glycol 3350 17 gram oral powder packet 17 g PO DAILY PRN 10/25/18 potassium chloride 20 mEq oral packet 20 meq PO DAILY 10/25/18 pumpkin seed extract-soy germ 300 mg capsule 1 cap PO PRN PRN cap 10/25/18 ropinirole 0.5 mg tablet 0.5 mg PO QHS 10/25/18 Budesonide Aerosol [Pulmicort Respules] 0.5 mg INHALATION BID.RT 12/03/18 Latanoprost 0.005% [Xalatan Opthalmic] 1 drp OPHTHALMIC (EYE) HS 12/03/18 Levothyroxine [Synthroid] 175 mcg PO MoTuWeThFr@0600 12/03/18 Nystatin Powder [Mycostatin Powder] 1 applic TOPICAL BID 12/03/18 Acetaminophen [Tylenol] 1,000 mg PO Q6H PRN PRN tablet 01/18/19 Apixaban [Eliquis] 5 mg PO BID #60 tablet 01/18/19 Bisacodyl [Dulcolax] 10 mg PO DAILY PRN tablet 01/18/19 Insulin Glargine [Lantus SoloStar Pen] 15 units SC BID #1 pen 01/18/19 Iron Polysaccharide Complex [Ferrex 150] 150 mg PO DAILYCM #30 capsule 01/18/19 Menthol/Lanolin/Calamine/Znox [Calmoseptine Ointment] 1 applic TOPICAL BID tube 01/18/19 Mineral Oil/Petrolatum,White [Eucerin] 1 applic TOPICAL QHS jar 01/18/19 Nutritional Supplement [Juice - ORANGE FLAVOR] 1 packet PO BIDCM #60 packet 01/18/19 Oxycodone [Oxyir] 10 mg PO Q4H PRN PRN 7 Days #60 tab 01/18/19 Pantoprazole Sodium [Protonix] 40 mg PO DAILY #30 tablet 01/18/19 Senna [Senokot] 2 tablet PO BID tablet 01/18/19 buPROPion SR [Wellbutrin SR (150mg tablets)] 150 mg PO BID #60 tablet.sa 01/18/19 hydrOXYzine pamoate capsule [Vistaril pamoate capsule] 50 mg PO 4X/DAY PRN PRN #120 capsule 01/18/19 Following Prescrptions Were Given to Patient: Oxycodone [Oxyir] 10 mg PO Q4H PRN PRN 7 Days #60 tab PRN Reason: Severe Pain (6-05/16) hydrOXYzine pamoate capsule [Vistaril pamoate capsule] 50 mg PO 4X/DAY PRN PRN #120 capsule PRN Reason: Itching Iron Polysaccharide Complex [Ferrex 150] 150 mg PO DAILYCM #30 capsule Pantoprazole Sodium [Protonix] 40 mg PO DAILY #30 tablet Apixaban [Eliquis] 5 mg PO BID #60 tablet buPROPion SR [Wellbutrin SR (150mg tablets)] 150 mg PO BID #60 tablet.sa Insulin Glargine [Lantus SoloStar Pen] 15 units SC BID #1 pen Nutritional Supplement [Juice - ORANGE FLAVOR] 1 packet PO BIDCM #60 packet Primary Care Physician: Inez Rangel NP-C [Primary Care Provider] - Please follow up with your Primary Care Physician in: 1 week. Please Follow Up With: Dr Garcias (cardiology) When: 2 weeks. Please Follow Up With: Rehana Sanchez MD When: 2 weeks. Disposition: Home with Home Health Minutes spent on discharge:: 35 Patient Condition:: Stable Medical Necessity - Tobacco Use Smoking Status: Former smoker Tobacco Use: Non-smoker Meaningful Use Info Meaningful Use Diagnoses (Choose all that apply): None applicable
--- NOTE | 2019-01-18 15:41 | HHNOTE_ITS ---
Home Health Note - Plan Overview of reason of hospitalization: The patient is a 73 year old Female with below past medical history underwent excision hydradenitis, pilonidal cyst 11/22/[address] Eaton, Diverting colostomy 11/30/[address] Serrato, post-operative course complicated by acute respiratory failure, infected pilonidal cyst, NSTEMI, admitted to TCU with debility, here for rehabilitation, strengthening, wound care, prior to discharge home with spouse. Resident needs hospital bed with low air loss mattress for healing of wound. Resident requires frequent turning and repositioning in bed to relieve pain for comfort. This cannot be maintained in regular bed. Resident requires wheelchair, resident unable to ambulate with a cane or walker and requires a wheelchair for mobility. Resident requires roho cushion, pressure relieving wheelchair cushion for healing of wound. Discharge home with spouse, Home Health Services for PT/OT/SN, [employer] for hospital bed, low airloss mattress, roho cushion, wheelchair to assist with wound healing. to continue colostomy, catheter training for home management. Problems: Patient was seen for (Last Reviewed 12/11/18 @ 11:49 by Alejandrina Garcias MD) Anemia (Chronic) Asthma (Chronic) Chronic pneumonia (Chronic) Hyperlipidemia (Chronic) Pilonidal cyst (Chronic) Complete List of Medical Problems (Last Reviewed 12/11/18 @ 11:49 by Alejandrina Garcias MD) Atherosclerosis of coronary artery of [place] heart without angina pectoris (Chronic) Essential hypertension (Chronic) Anemia (Chronic) Asthma (Chronic) Chronic pneumonia (Chronic) Hyperlipidemia (Chronic) Pilonidal cyst (Chronic) Open wound of sacroiliac region with complication (Acute) Open wound of buttock (Acute) Type 2 diabetes mellitus (Chronic) Hypothyroidism (Chronic) COPD (chronic obstructive pulmonary disease) (Chronic) - Requirements and Reasons Disciplines Needed/Ordered: Senior Care, Physical Therapy Reason for Disciplines: Disease Specific Monitoring/education, Medication Management/Knowledge Deficit, Wound Care, Drainage Devices/Tube Care, Cather Care and/or Changes, Ostomy Care, Gait Training, Stair Training, Fall Prevention, Home Safety/Equipment Instruction, Balance and/or Posture Training, Transfer Training Related To: Change in Medical Treatment Plan, Limited/Poor Endurance, Shortness of Breath with Activity, Physical Impairments, Unsteady Gait/Balance, Intractable Pain, Fall Risk Patient is unable to leave the home: Without Aid of Supportive Devices (crutches, cane, wheelchair, walker), Without the assistance of another person - Additional Disciplines Additional Disciplines Needed/Ordered: Occupational Therapy
[2019-01-18 17:30] LABS: Bedside Glucose 154 mg/dL (70-110)
[2019-01-18] MEDS: Latanoprost 0.005% 1 Bottle 1 DRP EACH EYE (20:15)
[2019-01-18] MEDS: Atorvastatin Calcium 80 MG Tablet PO (20:17)
[2019-01-18] MEDS: Pramipexole Di-HCl 0.125 MG Tablet 0.25 MG PO (20:18)
[2019-01-18] MEDS: hydrOXYzine PAM 25 MG Capsule 50 MG PO (20:24)
[2019-01-18 21:15] LABS: Bedside Glucose 280 mg/dL (70-110)
[2019-01-19 06:31] LABS: Bedside Glucose 157 mg/dL (70-110)
[2019-01-19] MEDS: APIXABAN 5 MG TABLET PO ×2 (06:39→17:05)
[2019-01-19] MEDS: Pantoprazole Sodium 40 MG Tablet PO (06:39)
[2019-01-19] MEDS: Furosemide 20 MG Tablet PO (06:39)
[2019-01-19] MEDS: Senna Tablet 2 TABLET PO ×2 (06:40→17:05)
[2019-01-19] MEDS: buPROPion (SR) 150 MG Tablet.SA PO ×2 (06:41→17:06)
[2019-01-19] MEDS: Glucerna Shake 120 ML LIQUID PO ×4 (06:41→20:57)
[2019-01-19] MEDS: Nystatin Powder 15gm Bottle 1 APPLIC TOPICAL ×2 (06:42→20:59)
[2019-01-19] MEDS: Menthol/Lanolin/Calamine/Znox 113 GM Tube 1 APPLIC TOPICAL ×2 (06:43→17:10)
[2019-01-19] MEDS: Polyethylene Glycol 3350 17 GM PACKET PO (06:44)
[2019-01-19] MEDS: Citalopram 20 MG Tablet PO (06:44)
[2019-01-19] MEDS: oxyCODONE 5 MG Tablet 10 MG PO ×2 (07:02→22:27)
[2019-01-19 07:11] VITALS: O2SAT 97
[2019-01-19] MEDS: hydrOXYzine PAM 25 MG Capsule 50 MG PO ×2 (08:16→17:17)
[2019-01-19] MEDS: Aspirin 81 MG TAB.CHEW PO (08:16)
[2019-01-19] MEDS: Iron Polysaccharide Complex 150 MG CAPSULE PO (08:16)
[2019-01-19 10:53] VITALS: PULSE 67; O2SAT 93
[2019-01-19 10:55] LABS: Bedside Glucose 233 mg/dL (70-110)
[2019-01-19 16:00] VITALS: BP 112/43; PULSE 68; RESP 18; TEMP 37.1; O2SAT 95
[2019-01-19 17:11] LABS: Bedside Glucose 224 mg/dL (70-110)
[2019-01-19] MEDS: Latanoprost 0.005% 1 Bottle 1 DRP EACH EYE (20:58)
[2019-01-19] MEDS: Pramipexole Di-HCl 0.125 MG Tablet 0.25 MG PO (21:00)
[2019-01-19] MEDS: Atorvastatin Calcium 80 MG Tablet PO (21:01)
[2019-01-19 21:50] LABS: Bedside Glucose 200 mg/dL (70-110)
[2019-01-20] MEDS: Menthol/Lanolin/Calamine/Znox 113 GM Tube 1 APPLIC TOPICAL ×2 (05:19→17:41)
[2019-01-20] MEDS: Nystatin Powder 15gm Bottle 1 APPLIC TOPICAL ×2 (05:19→20:52)
[2019-01-20] MEDS: Furosemide 20 MG Tablet PO (05:24)
[2019-01-20] MEDS: Polyethylene Glycol 3350 17 GM PACKET PO (05:24)
[2019-01-20] MEDS: APIXABAN 5 MG TABLET PO ×2 (05:24→17:40)
[2019-01-20] MEDS: Pantoprazole Sodium 40 MG Tablet PO (05:24)
[2019-01-20] MEDS: Senna Tablet 2 TABLET PO ×2 (05:24→17:40)
[2019-01-20] MEDS: Citalopram 20 MG Tablet PO (05:24)
[2019-01-20] MEDS: buPROPion (SR) 150 MG Tablet.SA PO ×2 (05:24→17:40)
[2019-01-20] MEDS: Glucerna Shake 120 ML LIQUID PO ×4 (05:25→20:56)
[2019-01-20 06:21] LABS: Bedside Glucose 167 mg/dL (70-110)
[2019-01-20 07:27] VITALS: O2SAT 98
[2019-01-20] MEDS: Iron Polysaccharide Complex 150 MG CAPSULE PO (07:43)
[2019-01-20] MEDS: Aspirin 81 MG TAB.CHEW PO (07:44)
[2019-01-20 11:29] VITALS: PULSE 63; RESP 18; O2SAT 96
[2019-01-20 11:36] LABS: Bedside Glucose 218 mg/dL (70-110)
[2019-01-20] MEDS: hydrOXYzine PAM 25 MG Capsule 50 MG PO (13:53)
[2019-01-20 14:09] VITALS: BP 121/53; PULSE 67; RESP 16; TEMP 36.9; O2SAT 97
[2019-01-20 17:11] LABS: Bedside Glucose 265 mg/dL (70-110)
[2019-01-20] MEDS: Latanoprost 0.005% 1 Bottle 1 DRP EACH EYE (20:52)
[2019-01-20] MEDS: Atorvastatin Calcium 80 MG Tablet PO (20:53)
[2019-01-20] MEDS: Pramipexole Di-HCl 0.125 MG Tablet 0.25 MG PO (20:53)
[2019-01-20] MEDS: oxyCODONE 5 MG Tablet 10 MG PO (20:53)
[2019-01-20 21:21] LABS: Bedside Glucose 267 mg/dL (70-110)
[2019-01-21] MEDS: Polyethylene Glycol 3350 17 GM PACKET PO (05:59)
[2019-01-21] MEDS: Levothyroxine 175 MCG Tablet PO (05:59)
[2019-01-21] MEDS: Senna Tablet 2 TABLET PO ×2 (05:59→17:14)
[2019-01-21] MEDS: Menthol/Lanolin/Calamine/Znox 113 GM Tube 1 APPLIC TOPICAL ×2 (06:00→15:03)
[2019-01-21] MEDS: APIXABAN 5 MG TABLET PO ×2 (06:00→17:15)
[2019-01-21] MEDS: Glucerna Shake 120 ML LIQUID PO ×3 (06:00→20:31)
[2019-01-21] MEDS: Pantoprazole Sodium 40 MG Tablet PO (06:00)
[2019-01-21] MEDS: Furosemide 20 MG Tablet PO (06:00)
[2019-01-21] MEDS: buPROPion (SR) 150 MG Tablet.SA PO ×2 (06:00→17:14)
[2019-01-21] MEDS: Citalopram 20 MG Tablet PO (06:00)
[2019-01-21] MEDS: Nystatin Powder 15gm Bottle 1 APPLIC TOPICAL ×2 (06:00→20:46)
[2019-01-21 06:21] LABS: Bedside Glucose 146 mg/dL (70-110)
[2019-01-21 07:14] VITALS: O2SAT 98
[2019-01-21] MEDS: Aspirin 81 MG TAB.CHEW PO (09:20)
[2019-01-21] MEDS: Iron Polysaccharide Complex 150 MG CAPSULE PO (09:20)
[2019-01-21 11:00] LABS: Bedside Glucose 265 mg/dL (70-110)
--- NOTE | 2019-01-21 12:07 | NURSING ---
Patient returned from appointment with Meme Pineda CNP. Concerned about open wounds to vulva. Per Dr. Sanchez, would like patient to be seen at [facility].
--- NOTE | 2019-01-21 15:23 | NURSING ---
Discussed plan for wound care at home with and patient. plan to continue the Dakins moistened dressing changes BID while in TCU then transition to NS wet to dry at home. will need to teach the how to do the dressing change. has been doing well with the ostomy appliance changes and care. pt will have home health to assist as well. is requesting that patient be discharged home on 01/27/19 instead of 01/28/19 since he has a stress test that day. Did discuss with the adoption social worker. states she will talk with patient and .
[2019-01-21 16:05] VITALS: BP 133/66; PULSE 68; RESP 16; TEMP 36.3; O2SAT 96
[2019-01-21 17:15] LABS: Bedside Glucose 227 mg/dL (70-110)
[2019-01-21] MEDS: Pramipexole Di-HCl 0.125 MG Tablet 0.25 MG PO (20:27)
[2019-01-21] MEDS: Atorvastatin Calcium 80 MG Tablet PO (20:28)
[2019-01-21] MEDS: hydrOXYzine PAM 25 MG Capsule 50 MG PO (20:28)
[2019-01-21] MEDS: Bisacodyl 5 MG Tablet 10 MG PO (20:31)
[2019-01-21] MEDS: Latanoprost 0.005% 1 Bottle 1 DRP EACH EYE (20:33)
[2019-01-21] MEDS: oxyCODONE 5 MG Tablet 10 MG PO (21:48)
[2019-01-21 21:55] LABS: Bedside Glucose 161 mg/dL (70-110)
[2019-01-22] MEDS: Levothyroxine 175 MCG Tablet PO (05:10)
[2019-01-22] MEDS: Glucerna Shake 120 ML LIQUID PO ×3 (05:10→20:21)
[2019-01-22] MEDS: Nystatin Powder 15gm Bottle 1 APPLIC TOPICAL ×2 (05:10→20:24)
[2019-01-22] MEDS: Polyethylene Glycol 3350 17 GM PACKET PO (05:10)
[2019-01-22] MEDS: Pantoprazole Sodium 40 MG Tablet PO (05:10)
[2019-01-22] MEDS: Menthol/Lanolin/Calamine/Znox 113 GM Tube 1 APPLIC TOPICAL ×2 (05:10→17:40)
[2019-01-22] MEDS: Furosemide 20 MG Tablet PO (05:10)
[2019-01-22] MEDS: buPROPion (SR) 150 MG Tablet.SA PO ×2 (05:10→17:39)
[2019-01-22] MEDS: APIXABAN 5 MG TABLET PO ×2 (05:10→17:39)
[2019-01-22] MEDS: Citalopram 20 MG Tablet PO (05:10)
[2019-01-22] MEDS: Senna Tablet 2 TABLET PO ×2 (05:10→17:39)
[2019-01-22 06:35] LABS: Bedside Glucose 152 mg/dL (70-110)
[2019-01-22 07:59] VITALS: O2SAT 93
--- NOTE | 2019-01-22 08:52 | CASEMGMT ---
Social Work Pt and spouse requesting to discharge 01/27 instead of 01/28 d/t 's doctor's appt. Spoke with physician and IDT about change in date, no issues. Pt to DC 01/27. Updated [employer] and [facility]. Ericka Michaels, EDGERMAN ASPHALT PAVING SUPERVISOR
[2019-01-22] MEDS: Iron Polysaccharide Complex 150 MG CAPSULE PO (09:05)
[2019-01-22] MEDS: Aspirin 81 MG TAB.CHEW PO (09:05)
[2019-01-22] MEDS: oxyCODONE 5 MG Tablet 10 MG PO ×2 (10:57→20:21)
--- NOTE | 2019-01-22 12:00 | NURSING ---
wound photo: sacrum/elisha-anal
[2019-01-22 15:21] VITALS: BP 98/52; PULSE 62; RESP 18; TEMP 36.8; O2SAT 98
[2019-01-22] MEDS: hydrOXYzine PAM 25 MG Capsule 50 MG PO (20:11)
[2019-01-22] MEDS: Latanoprost 0.005% 1 Bottle 1 DRP EACH EYE (20:22)
[2019-01-22] MEDS: Atorvastatin Calcium 80 MG Tablet PO (20:24)
[2019-01-22] MEDS: Pramipexole Di-HCl 0.125 MG Tablet 0.25 MG PO (21:03)
[2019-01-22 21:56] LABS: Bedside Glucose 257 mg/dL (70-110)
[2019-01-23] MEDS: Nystatin Powder 15gm Bottle 1 APPLIC TOPICAL ×2 (05:12→21:34)
[2019-01-23] MEDS: Senna Tablet 2 TABLET PO ×2 (05:12→17:02)
[2019-01-23] MEDS: Furosemide 20 MG Tablet PO (05:12)
[2019-01-23] MEDS: Menthol/Lanolin/Calamine/Znox 113 GM Tube 1 APPLIC TOPICAL ×2 (05:12→17:00)
[2019-01-23] MEDS: APIXABAN 5 MG TABLET PO ×2 (05:12→17:02)
[2019-01-23] MEDS: Citalopram 20 MG Tablet PO (05:12)
[2019-01-23] MEDS: Pantoprazole Sodium 40 MG Tablet PO (05:12)
[2019-01-23] MEDS: buPROPion (SR) 150 MG Tablet.SA PO ×2 (05:13→17:03)
[2019-01-23] MEDS: Polyethylene Glycol 3350 17 GM PACKET PO (05:13)
[2019-01-23] MEDS: Glucerna Shake 120 ML LIQUID PO ×3 (05:13→16:59)
[2019-01-23] MEDS: Levothyroxine 175 MCG Tablet PO (05:13)
[2019-01-23 06:26] LABS: Bedside Glucose 176 mg/dL (70-110)
[2019-01-23] MEDS: Iron Polysaccharide Complex 150 MG CAPSULE PO (08:59)
[2019-01-23] MEDS: Aspirin 81 MG TAB.CHEW PO (08:59)
[2019-01-23 10:26] VITALS: PULSE 72
[2019-01-23] MEDS: oxyCODONE 5 MG Tablet 10 MG PO ×2 (10:57→21:48)
[2019-01-23 11:11] LABS: Bedside Glucose 278 mg/dL (70-110)
--- NOTE | 2019-01-23 11:44 | NURSING ---
Patient noted to have moist, productive cough with white phlegm. Fine crackles to RLL, Dr. Will notified, new order for CXR.
--- NOTE | 2019-01-23 14:18 | NURSING ---
Patient refusing to have chest xray states she has only seen Dr. Will twice and she doesn't need any chest xray, I've had enough xrays.
[2019-01-23 14:42] VITALS: BP 105/52; PULSE 66; RESP 16; TEMP 36.6
[2019-01-23 16:56] LABS: Bedside Glucose 164 mg/dL (70-110)
[2019-01-23] MEDS: Atorvastatin Calcium 80 MG Tablet PO (21:30)
[2019-01-23] MEDS: Pramipexole Di-HCl 0.125 MG Tablet 0.25 MG PO (21:30)
[2019-01-23] MEDS: hydrOXYzine PAM 25 MG Capsule 50 MG PO (21:30)
[2019-01-23 21:45] LABS: Bedside Glucose 205 mg/dL (70-110)
[2019-01-23] MEDS: Latanoprost 0.005% 1 Bottle 1 DRP EACH EYE (21:50)
[2019-01-24] MEDS: buPROPion (SR) 150 MG Tablet.SA PO ×2 (05:45→17:17)
[2019-01-24] MEDS: Polyethylene Glycol 3350 17 GM PACKET PO (05:45)
[2019-01-24] MEDS: Levothyroxine 175 MCG Tablet PO (05:45)
[2019-01-24] MEDS: Citalopram 20 MG Tablet PO (05:45)
[2019-01-24] MEDS: Senna Tablet 2 TABLET PO ×2 (05:45→17:17)
[2019-01-24] MEDS: Furosemide 20 MG Tablet PO (05:45)
[2019-01-24] MEDS: APIXABAN 5 MG TABLET PO ×2 (05:45→17:17)
[2019-01-24] MEDS: Pantoprazole Sodium 40 MG Tablet PO (05:45)
[2019-01-24] MEDS: Menthol/Lanolin/Calamine/Znox 113 GM Tube 1 APPLIC TOPICAL ×2 (05:46→17:19)
[2019-01-24] MEDS: Glucerna Shake 120 ML LIQUID PO ×3 (05:46→17:16)
[2019-01-24] MEDS: Nystatin Powder 15gm Bottle 1 APPLIC TOPICAL ×2 (05:47→19:59)
[2019-01-24 06:50] LABS: Bedside Glucose 152 mg/dL (70-110)
[2019-01-24] MEDS: Iron Polysaccharide Complex 150 MG CAPSULE PO (08:17)
[2019-01-24] MEDS: Aspirin 81 MG TAB.CHEW PO (08:17)
[2019-01-24 09:29] VITALS: PULSE 72; O2SAT 95
[2019-01-24 10:56] LABS: Bedside Glucose 278 mg/dL (70-110)
--- NOTE | 2019-01-24 13:42 | CASEMGMT ---
BIMS and PHQ9 interviews for MDS assessment completed on this date. LAURA Jacobs
[2019-01-24 14:37] VITALS: O2SAT 96
--- NOTE | 2019-01-24 14:59 | NURSING ---
Sacral dressing had been changed by MARK Powers. pt resting in bed with eyes closed.
[2019-01-24 15:08] VITALS: BP 136/57; PULSE 81; RESP 20; TEMP 36.7; O2SAT 96
[2019-01-24 17:05] LABS: Bedside Glucose 205 mg/dL (70-110)
--- NOTE | 2019-01-24 18:09 | NURSING ---
dr Will notified of wound culture results. new orders for cipro and rifampin and pt to f/u w/wound center after DC
[2019-01-24] MEDS: Ciprofloxacin 250 MG Tablet PO (19:56)
[2019-01-24] MEDS: Pramipexole Di-HCl 0.125 MG Tablet 0.25 MG PO (19:56)
[2019-01-24] MEDS: rifAMPin 300 MG Capsule PO (19:56)
[2019-01-24] MEDS: Atorvastatin Calcium 80 MG Tablet PO (19:56)
[2019-01-24] MEDS: Latanoprost 0.005% 1 Bottle 1 DRP EACH EYE (20:00)
[2019-01-24 21:16] LABS: Bedside Glucose 225 mg/dL (70-110)
[2019-01-24] MEDS: hydrOXYzine PAM 25 MG Capsule 50 MG PO (21:31)
[2019-01-24] MEDS: oxyCODONE 5 MG Tablet 10 MG PO (21:31)
[2019-01-25] MEDS: Senna Tablet 2 TABLET PO ×2 (05:37→17:04)
[2019-01-25] MEDS: rifAMPin 300 MG Capsule PO ×2 (05:37→17:04)
[2019-01-25] MEDS: APIXABAN 5 MG TABLET PO ×2 (05:37→17:05)
[2019-01-25] MEDS: Levothyroxine 175 MCG Tablet PO (05:37)
[2019-01-25] MEDS: Ciprofloxacin 250 MG Tablet PO ×2 (05:37→17:03)
[2019-01-25] MEDS: Pantoprazole Sodium 40 MG Tablet PO (05:37)
[2019-01-25] MEDS: buPROPion (SR) 150 MG Tablet.SA PO ×2 (05:37→17:04)
[2019-01-25] MEDS: Citalopram 20 MG Tablet PO (05:37)
[2019-01-25] MEDS: Furosemide 20 MG Tablet PO (05:38)
[2019-01-25] MEDS: Menthol/Lanolin/Calamine/Znox 113 GM Tube 1 APPLIC TOPICAL ×2 (05:38→17:06)
[2019-01-25] MEDS: Glucerna Shake 120 ML LIQUID PO ×3 (05:38→17:03)
[2019-01-25] MEDS: Polyethylene Glycol 3350 17 GM PACKET PO (05:38)
[2019-01-25] MEDS: Nystatin Powder 15gm Bottle 1 APPLIC TOPICAL ×2 (05:39→21:41)
[2019-01-25 06:25] VITALS: O2SAT 98
[2019-01-25 06:25] LABS: Bedside Glucose 162 mg/dL (70-110)
[2019-01-25] MEDS: Aspirin 81 MG TAB.CHEW PO (08:01)
[2019-01-25] MEDS: Iron Polysaccharide Complex 150 MG CAPSULE PO (08:01)
--- NOTE | 2019-01-25 10:44 | MDS.RN ---
Pain interview for demond 01/27/19 completed.
--- NOTE | 2019-01-25 10:59 | NURSING ---
3 ostomy appliances given to patient to take home until home health can get her supplies. scripts for wound care supplies and ostomy supplies sent to home health per community mental health social worker.
[2019-01-25 11:10] LABS: Bedside Glucose 252 mg/dL (70-110)
[2019-01-25 15:51] VITALS: BP 125/40; PULSE 82; RESP 18; TEMP 36.8; O2SAT 96
[2019-01-25 16:55] LABS: Bedside Glucose 235 mg/dL (70-110)
[2019-01-25] MEDS: Ondansetron ODT 4 MG Tablet PO (17:02)
[2019-01-25 21:11] LABS: Bedside Glucose 207 mg/dL (70-110)
[2019-01-25] MEDS: Atorvastatin Calcium 80 MG Tablet PO (21:26)
[2019-01-25] MEDS: oxyCODONE 5 MG Tablet 10 MG PO (21:26)
[2019-01-25] MEDS: Pramipexole Di-HCl 0.125 MG Tablet 0.25 MG PO (21:26)
[2019-01-25] MEDS: hydrOXYzine PAM 25 MG Capsule 50 MG PO (21:26)
[2019-01-25] MEDS: Latanoprost 0.005% 1 Bottle 1 DRP EACH EYE (21:28)
[2019-01-26] MEDS: Pantoprazole Sodium 40 MG Tablet PO (05:58)
[2019-01-26] MEDS: Polyethylene Glycol 3350 17 GM PACKET PO (05:58)
[2019-01-26] MEDS: buPROPion (SR) 150 MG Tablet.SA PO ×2 (05:58→17:20)
[2019-01-26] MEDS: rifAMPin 300 MG Capsule PO ×2 (05:58→17:19)
[2019-01-26] MEDS: Glucerna Shake 120 ML LIQUID PO ×3 (05:58→17:18)
[2019-01-26] MEDS: APIXABAN 5 MG TABLET PO ×2 (05:58→17:19)
[2019-01-26] MEDS: Furosemide 20 MG Tablet PO (05:58)
[2019-01-26] MEDS: Ciprofloxacin 250 MG Tablet PO ×2 (05:58→17:19)
[2019-01-26] MEDS: Citalopram 20 MG Tablet PO (05:58)
[2019-01-26] MEDS: Senna Tablet 2 TABLET PO ×2 (05:59→17:20)
[2019-01-26] MEDS: Menthol/Lanolin/Calamine/Znox 113 GM Tube 1 APPLIC TOPICAL ×2 (06:04→17:20)
[2019-01-26] MEDS: Nystatin Powder 15gm Bottle 1 APPLIC TOPICAL ×2 (06:04→21:04)
[2019-01-26 06:06] LABS: Bedside Glucose 132 mg/dL (70-110)
[2019-01-26] MEDS: Iron Polysaccharide Complex 150 MG CAPSULE PO (08:02)
[2019-01-26] MEDS: Aspirin 81 MG TAB.CHEW PO (08:02)
[2019-01-26] MEDS: oxyCODONE 5 MG Tablet 10 MG PO (09:49)
[2019-01-26] MEDS: hydrOXYzine PAM 25 MG Capsule 50 MG PO (10:36)
[2019-01-26 10:56] LABS: Bedside Glucose 211 mg/dL (70-110)
[2019-01-26 15:33] VITALS: BP 125/46; PULSE 82; RESP 16; TEMP 36.3; O2SAT 97
[2019-01-26 16:40] LABS: Bedside Glucose 189 mg/dL (70-110)
[2019-01-26] MEDS: Pramipexole Di-HCl 0.125 MG Tablet 0.25 MG PO (21:03)
[2019-01-26] MEDS: Atorvastatin Calcium 80 MG Tablet PO (21:04)
[2019-01-26] MEDS: Latanoprost 0.005% 1 Bottle 1 DRP EACH EYE (21:06)
[2019-01-26 21:31] LABS: Bedside Glucose 226 mg/dL (70-110)
[2019-01-27] MEDS: Ciprofloxacin 250 MG Tablet PO (05:08)
[2019-01-27] MEDS: rifAMPin 300 MG Capsule PO (05:08)
[2019-01-27] MEDS: buPROPion (SR) 150 MG Tablet.SA PO (05:08)
[2019-01-27] MEDS: Furosemide 20 MG Tablet PO (05:08)
[2019-01-27] MEDS: APIXABAN 5 MG TABLET PO (05:09)
[2019-01-27] MEDS: Citalopram 20 MG Tablet PO (05:09)
[2019-01-27] MEDS: Senna Tablet 2 TABLET PO (05:10)
[2019-01-27] MEDS: Polyethylene Glycol 3350 17 GM PACKET PO (05:10)
[2019-01-27] MEDS: Pantoprazole Sodium 40 MG Tablet PO (05:10)
[2019-01-27] MEDS: Nystatin Powder 15gm Bottle 1 APPLIC TOPICAL (05:12)
[2019-01-27] MEDS: Menthol/Lanolin/Calamine/Znox 113 GM Tube 1 APPLIC TOPICAL (05:13)
[2019-01-27 06:26] LABS: Bedside Glucose 159 mg/dL (70-110)
[2019-01-27] MEDS: Iron Polysaccharide Complex 150 MG CAPSULE PO (08:01)
[2019-01-27] MEDS: Aspirin 81 MG TAB.CHEW PO (08:01)
[2019-01-27] MEDS: hydrOXYzine PAM 25 MG Capsule 50 MG PO (08:02)
[2019-01-27 09:48] VITALS: BP 112/61; PULSE 74; RESP 18; TEMP 36.7; O2SAT 98
--- NOTE | 2019-01-31 14:32 | MDS.RN ---
Information for the mds was obtained from review of the clinical record, interview of resident, staff, and direct observation of resident's care.
== END 2019-01-27 09:55 | disposition home health service (06) | DRG 949 ==
PROVIDERS: Admitting Provider Family Medicine Geriatric Medicine; Family Provider Nurse Practitioner Family; PCP Nurse Practitioner Family; Referring Provider Family Medicine Geriatric Medicine; Visit Provider Family Medicine Geriatric Medicine
DX: Z48.815 Encounter for surgical aftercare following surgery on the digestive system (principal); L05.01 Pilonidal cyst with abscess; L73.2 Hidradenitis suppurativa; I25.2 Old myocardial infarction; Z93.3 Colostomy status; I25.10 Atherosclerotic heart disease of native coronary artery without angina pectoris; E78.5 Hyperlipidemia, unspecified; E03.9 Hypothyroidism, unspecified; B35.4 Tinea corporis; D50.9 Iron deficiency anemia, unspecified; H40.9 Unspecified glaucoma; F32.9 Major depressive disorder, single episode, unspecified; E87.6 Hypokalemia; G25.81 Restless legs syndrome; K21.9 Gastro-esophageal reflux disease without esophagitis; F41.9 Anxiety disorder, unspecified; E11.40 Type 2 diabetes mellitus with diabetic neuropathy, unspecified; M19.90 Unspecified osteoarthritis, unspecified site; J44.9 Chronic obstructive pulmonary disease, unspecified; M06.9 Rheumatoid arthritis, unspecified; D63.8 Anemia in other chronic diseases classified elsewhere; Z87.891 Personal history of nicotine dependence; I10 Essential (primary) hypertension; L05.91 Pilonidal cyst without abscess; B96.89 Other specified bacterial agents as the cause of diseases classified elsewhere; I48.91 Unspecified atrial fibrillation
CPT/HCPCS: 36415; 71045; 80048; 81001; 82962; 84484; 85014; 85018; 85025; 86140; 87077; 87086; 87088; 87184; 87186; 93005; 97110; 97116; 97163; 97166; 97530; 97535; 97802; J7030; A4216; J2405

== ENCOUNTER → 2019-01-21 16:13 | Outpatient (CLI) | payer MEDICARE, OTHER, SELFPAY ==
[2019-01-21 12:18] VITALS: BMI 37.3
== END ==
PROVIDERS: Family Provider Nurse Practitioner Family; PCP Nurse Practitioner Family; Referring Provider Nurse Practitioner Women's Health; Visit Provider Nurse Practitioner Women's Health
DX: S31.40XA Unspecified open wound of vagina and vulva, initial encounter (principal)
CPT/HCPCS: 87070; 87077; 87186; 87205

== ENCOUNTER → 2019-02-09 17:18 | Outpatient (CLI) | payer MEDICARE, OTHER, SELFPAY ==
[2019-02-04 08:40] VITALS: BMI 35.9
[2019-02-09 17:38] LABS: Color, Urine Yellow (Yellow); Glucose, Dipstick Normal (Normal); Ketone-Dipstick Negative (Negative); Leukocyte Esterase-Dipstick 500 /ul (Negative); Nitrite-Dipstick Negative (Negative); Occult Blood-Urine 50 /ul (Negative); Protein-Dipstick Negative (Negative); Urine Bilirubin Dipstick Negative (Negative); Urine Clarity Cloudy (Clear); Urine Urobilinogen Normal (Normal)
== END ==
PROVIDERS: Family Provider Nurse Practitioner Family; PCP Nurse Practitioner Family; Visit Provider Family Medicine
DX: R30.0 Dysuria (principal); R35.0 Frequency of micturition; L05.01 Pilonidal cyst with abscess; L73.2 Hidradenitis suppurativa; E11.42 Type 2 diabetes mellitus with diabetic polyneuropathy
CPT/HCPCS: 81002; 87077; 87086; 87088; 87186

== ENCOUNTER 2019-02-25 11:45 | Outpatient (RCR) | payer MEDICARE, OTHER, SELFPAY ==
[2019-01-21 12:18] VITALS: BMI 37.3
[2019-02-04 08:40] VITALS: BP 130/68; PULSE 84; RESP 18; TEMP 36.1; BMI 35.9
--- NOTE | 2019-02-04 12:09 | PCM.WC.PN ---
Type of Wound Date of Service: 02/04/19 Chief Complaint: Nonhealing hidradenitis ulcer bilateral perianal areas and sacral area. History of Wound: Surgery 11/22/18 - 1. Surgical preparation bilateral perianal areas with excision hidradenitis (162.5 cm2). 2. Excision extensive, complicated pilonidal cyst abscess (75 cm2). Wound care - VAC. Operative culture - Staphylococcus epidermidis, Enterococcus gallinarum, and Anaerobic cocci. She was placed on Unasyn and has finished them. Prealbumin from was 13.7. Encourasge nutritional supplementation with protein to help the healing process. HgbA1c from 11/30/18 was 6.2. Today she denies fever. Her appetite is ok. She does complain of redness and itching in her groin area. Progress of Wound: Improved. - Physical Exam Vital Signs Temp Pulse Resp BP 96.9 F L 84 18 130/68 H 02/04/19 08:40 02/04/19 08:40 02/04/19 08:40 02/04/19 08:40 Debridement Note Post-Debridement Measurements/Treatment WC - Nurse 2 - General Ulcer CM Notes Start: 02/04/19 08:40 Freq: Status: Active Protocol: Activity Type Activity Date Activity User E-Sign Co-Sign Detail Recorded Client Recorded Date Recorded By Document 02/04/19 09:22 DL [id number] 02/04/19 09:29 DL 02/04/19 09:22 Wound Center Nurse 2 #1 sacroiliac region -Time 09:24 -Correct Patient Yes -Correct Side, Site, Position Yes -Correct Procedure Yes -Procedure Performed Yes -Type of Procedure Debridement -Clinical Debridement Subcutaneous -Post Debridement Size (cm) - Length 13.5 -Post Debridement Size (cm) - Width 4.5 -Post Debridement Size (cm) - Depth 0.4 -Total Square Cm 60.75 -Wound/Ulcer Outcome Not Healed -Ulcer Cleansing Rinsed/ Irrigated with Saline -Foul Odor after Cleansing No -Bioengineered Tissue No -Bleeding Controlled with Pressure -Offloading No -Treatment Response Procedure Tolerated Well Pain Scale: 0-10 Numeric Is Patient Pain Free? Yes Wound debrided: #1 Bilateral perianal and sacral areas. Laterality: Not Applicable Wound Grade/Stage: 2. Type of Debridement: Excisional debridement Anesthesia Used: 4% Lidocaine Solution Depth: Down to and including healthy tissue, in the subcutaneous layer Percentage of wound debrided: 100 Instrument Used: 7mm curette Tissue Removed: subcutaneous tissue. Severity: Fat Layer Exposed Amount of bleeding with debridement: Mild Bleeding Controlled with: Pressure Patient tolerated procedure well Assessment/Plan Assessment: 1. Hidradenitis bilateral perianal areas. 2. Extensive, complicated pilonidal cyst abscess. 3. Nonhealing hidradenitis ulcer bilateral perianal areas. 4. Nonhealing ulcer sacral area. 5. Former smoker. 6. s/p surgical preparation bilateral perianal areas with excision hidradenitis (162.5 cm2) and excision extensive, complicated pilonidal cyst abscess (75 cm2). 7. Diabetes mellitus. 8. Bilateral inguinal fungal rash. Plan: The ulcer continues to heal. Will stop the VAC and start Aquacel Silver dressing changes daily. She has finished the Unasyn for Staphylococcus epidermidis, Enterocccus gallinarum, and Anaerobic cocci. She has a bilateral inguinal rash, probably fungal in nature. Will order Nystatin powder. Patient states she has not showered since the surgery. I told her she can shower at the time of the Silver dressing changes. Prealbumin from was 13.7. Encourasge nutritional supplementation with protein to help the healing process. HgbA1c from 11/30/18 was 6.2. Discussed with the patient about further operative debridement and skin grafting. She is interested but not right now. She will let us know when she wants to proceed. For elective skin grafting, the HgbA1c needs to be less than 8. Followup 2 weeks.
[2019-02-25 12:01] VITALS: BP 121/47; PULSE 95; RESP 18; TEMP 36.6; BMI 35.9
--- NOTE | 2019-02-25 12:42 | PN.PCM_ITS ---
(1) Ulcer of sacral region Status: Chronic Current Visit: Yes Code(s): L98.429 - Non-pressure chronic ulcer of back with unspecified severity (2) Pilonidal cyst Status: Chronic Current Visit: Yes Code(s): L05.91 - Pilonidal cyst without abscess (3) Type 2 diabetes mellitus Status: Chronic Current Visit: Yes Code(s): E11.9 - Type 2 diabetes mellitus without complications Type of Wound Date of Service: 02/25/19 Chief Complaint: Opened sacral ulcer after surgical debridement History of Wound: Patient is a 73 year old female who went to surgery on 11/22/18 where she underwent surgical preparation bilateral perianal areas with excision hidradenitis (162.5 cm2) and excision extensive, complicated pilonidal cyst abscess (75 cm2). Operative cultures showed Staphylococcus epidermidis, Enterococcus gallinarum, and Anaerobic cocci. She was placed on Unasyn. Because of the proximity to her anal opening, she underwent a diverting colostomy on 11/30/18. She was discharged to TCU for strengthening and ambula tion. After the colostomy was done, the VAC was placed. Her wound care now consists of silver algenate dressing changes done daily. Today she denies any complaints of fever or nausea and vomiting. Progress of Wound: Stable - Physical Exam Vital Signs Temp Pulse Resp BP 97.8 F 95 18 121/47 H 02/25/19 12:01 02/25/19 12:01 02/25/19 12:01 02/25/19 12:01 General: Alert, Oriented x3, Cooperative HEENT: Atraumatic Oral: Moist Mucosa Lungs: Normal air movement Cardiovascular: Regular rate Abdomen: Soft Extremities: No edema, Capillary Refill Less than 3 Seconds Skin: Ulcer/ Wound - sacral ulcer Wound Measurements and Assessment WC - Nurse 1 - General Ulcer Measurement Start: 02/04/19 08:40 Freq: Status: Active Protocol: Activity Type Activity Date Activity User E-Sign Co-Sign Detail Recorded Client Recorded Date Recorded By Document 02/25/19 12:01 [facility] [id number] 02/25/19 12:13 [facility] 02/25/19 12:01 Wound Center Nurse 1 [Ulcer Assessment] #1 sacroiliac region -Combined with other wound No -Current Size (cm) - Length 9.4 -Current Size (cm) - Width 1.5 -Current Size (cm) - Depth 0.1 -Total Square Cm 14.10 -Photo Taken No -Epithelialization Small 1-33% -Tunneling No -Undermining/Tunneling No -Circular Undermining No -Exudate Amt Medium -Exudate Type Serosanguineous -Wound Margin Flat & Intact -Granulation Amt Large (67-100%) -Granulation Quality [place] -Slough/Fibrin Yes -Necrosis Amt Small (1-33%) -Necrotic Tissue Type Adherent Slough -Texture (Hailee-wound Skin Appearance) Assessed, Scarring -Moisture (Hailee-wound Skin Appearance Assessed,Dry/ ) Scaly -Color (Hailee-wound Skin Appearance) Assessed -Temperature (Hailee-wound Skin No Abnormality Appearance) (Pt Warm) -Tenderness on Palpation (Hailee-wound No Skin Appearance) -Ulcer Cleansing Rinsed/ Irrigated with Saline -Foul Odor after Cleansing No -Anesthetic Used 4% Lidocaine Solution WC - Nurse 2 - General Ulcer CM Notes Start: 02/04/19 08:40 Freq: Status: Active Protocol: Activity Type Activity Date Activity User E-Sign Co-Sign Detail Recorded Client Recorded Date Recorded By Document 02/25/19 12:27 MW [id number] 02/25/19 12:30 MW 02/25/19 12:27 Wound Center Nurse 2 [Procedure/Treatment] -Time 12:27 -Correct Patient Yes -Correct Side, Site, Position Yes -Correct Procedure Yes -Procedure Performed Yes -Type of Procedure Debridement -Clinical Debridement Subcutaneous -Post Debridement Size (cm) - Length 8.7 -Post Debridement Size (cm) - Width 1.7 -Post Debridement Size (cm) - Depth 0.1 -Total Square Cm 14.79 -Wound/Ulcer Outcome Not Healed -Ulcer Cleansing Rinsed/ Irrigated with Saline -Foul Odor after Cleansing No -Bioengineered Tissue No -Bleeding Controlled with Pressure -Offloading No -Treatment Response Procedure Tolerated Well [See Physician Procedure note for Specifics] Pain Scale: 0-10 Numeric [Pain] -Is Patient Pain Free? Yes Musculoskeletal: No Tenderness to Palpation of Joints or Extremities Neurological: Neuro grossly intact Psych/Mental Status: Normal Affect, Appropriate Debridement Note Post-Debridement Measurements/Treatment WC - Nurse 2 - General Ulcer CM Notes Start: 02/04/19 08:40 Freq: Status: Active Protocol: Activity Type Activity Date Activity User E-Sign Co-Sign Detail Recorded Client Recorded Date Recorded By Document 02/04/19 09:22 [id number] 02/04/19 09:29 Document 02/25/19 12:27 [id number] 02/25/19 12:30 MW 02/04/19 02/25/19 09:22 12:27 Wound Center Nurse 2 #1 sacroiliac region -Time 09:24 12:27 -Correct Patient Yes Yes -Correct Side, Site, Position Yes Yes -Correct Procedure Yes Yes -Procedure Performed Yes Yes -Type of Procedure Debridement Debridement -Clinical Debridement Subcutaneous Subcutaneous -Post Debridement Size (cm) - Length 13.5 8.7 -Post Debridement Size (cm) - Width 4.5 1.7 -Post Debridement Size (cm) - Depth 0.4 0.1 -Total Square Cm 60.75 14.79 -Wound/Ulcer Outcome Not Healed Not Healed -Ulcer Cleansing Rinsed/ Rinsed/ Irrigated with Irrigated with Saline Saline -Foul Odor after Cleansing No No -Bioengineered Tissue No No -Bleeding Controlled with Pressure Pressure -Offloading No No -Treatment Response Procedure Procedure Tolerated Well Tolerated Well Pain Scale: 0-10 Numeric Is Patient Pain Free? Yes Yes Wound debrided: Sacral ulcer Laterality: Not Applicable Type of Debridement: Excisional debridement Anesthesia Used: 5% Lidocaine Gel Depth: Down to and including healthy tissue, in the subcutaneous layer Percentage of wound debrided: 100 Instrument Used: 7mm curette Tissue Removed: Subcutaneous tissue and slough Severity: Fat Layer Exposed Amount of bleeding with debridement: Moderate Bleeding Controlled with: Compression and gauze Patient tolerated procedure well Assessment/Plan Active Problems (Last Reviewed 01/21/19 @ 11:30 by Birdie Short) Ulcer of sacral region (Chronic) Pilonidal cyst (Chronic) Open wound of sacroiliac region with complication (Acute) Type 2 diabetes mellitus (Chronic) Assessment: 1. Hidradenitis bilateral perianal areas. 2. Extensive, complicated pilonidal cyst abscess. 3. Former smoker. 4. s/p surgical preparation bilateral perianal areas with excision hidradenitis (162.5 cm2) and excision extensive, complicated pilonidal cyst abscess (75 cm2). 5. Anemia of chronic disease, acute on chronic. 6. s/p diverting colostomy. Plan: Wound care will consist of daily silver algenate dressing changes. Prealbumin was 13.7 on 11/23/18. Encourage nutritional supplementation with protein to help the healing process. Operative cultures showed Staphylococcus epidermidis, Enterococcus gallinarum, and Anaerobic cocci. She completed Unasyn. Hgb has improved to 9.2. Patient has anemia of chronic disease, acute on Continue Iron supplementation. If there is a plateau in the healing process, can proceed with delayed closure with skin grafting. Follow up in 2 weeks. Code Visit 26088
== END 2019-03-06 23:59 ==
LOC: WC 11:45
PROVIDERS: Family Provider Nurse Practitioner Family; PCP Nurse Practitioner Family; Visit Provider Surgery
DX: L73.2 Hidradenitis suppurativa (principal); L05.01 Pilonidal cyst with abscess; E11.622 Type 2 diabetes mellitus with other skin ulcer; Z87.891 Personal history of nicotine dependence; B35.6 Tinea cruris; L98.422 Non-pressure chronic ulcer of back with fat layer exposed; Z93.3 Colostomy status
CPT/HCPCS: 11042; 11045; 99213; G0463

== ENCOUNTER 2019-04-01 10:15 | Outpatient (RCR) | payer MEDICARE, OTHER, SELFPAY ==
[2019-03-07 01:05] VITALS: BP 121/47; PULSE 95; RESP 18; TEMP 36.6
[2019-03-11 11:22] VITALS: BP 127/65; PULSE 81; RESP 18; TEMP 36.7; BMI 35.9
--- NOTE | 2019-03-11 13:39 | PCM.WC.PN ---
(1) Chronic ulcer of sacral region with fat layer exposed Status: Chronic Code(s): L98.492 - Non-pressure chronic ulcer of skin of other sites with fat layer exposed (2) Type 2 diabetes mellitus Status: Chronic Code(s): E11.9 - Type 2 diabetes mellitus without complications Type of Wound Date of Service: 03/11/19 Chief Complaint: Nonhealing hidradenitis ulcer bilateral perianal areas and sacral area. History of Wound: Surgery 11/22/18 - 1. Surgical preparation bilateral perianal areas with excision hidradenitis (162.5 cm2). 2. Excision extensive, complicated pilonidal cyst abscess (75 cm2). Wound care - Daily silver dressing changes. Operative culture - Staphylococcus epidermidis, Enterococcus gallinarum, and Anaerobic cocci. She was placed on Unasyn and has finished them. Prealbumin from was 13.7. Encourasge nutritional supplementation with protein to help the healing process. HgbA1c from 11/30/18 was 6.2. Today she denies fever. Her appetite is ok. Progress of Wound: Improved. - Physical Exam Vital Signs Temp Pulse Resp BP 98.0 F 81 18 127/65 H 03/11/19 11:22 03/11/19 11:22 03/11/19 11:22 03/11/19 11:22 General: Alert, Oriented x3, Cooperative HEENT: Atraumatic Oral: Moist Mucosa Lungs: Normal air movement Cardiovascular: Regular rate Extremities: Capillary Refill Less than 3 Seconds Skin: Ulcer/ Wound - Sacral ulcer Wound Measurements and Assessment WC - Nurse 1 - General Ulcer Measurement Start: 03/11/19 11:22 Freq: Status: Active Protocol: Activity Type Activity Date Activity User E-Sign Co-Sign Detail Recorded Client Recorded Date Recorded By Document 03/11/19 11:22 MW [id number] 03/11/19 11:32 MW 03/11/19 11:22 Wound Center Nurse 1 [Ulcer Assessment] #1 sacroiliac region -Combined with other wound No -Current Size (cm) - Length 9.0 -Current Size (cm) - Width 2.0 -Current Size (cm) - Depth 0.1 -Total Square Cm 18.00 -Photo Taken No -Epithelialization Small 1-33% -Tunneling No -Undermining/Tunneling No -Circular Undermining No -Exudate Amt Small -Exudate Type Serosanguineous -Wound Margin Flat & Intact -Granulation Amt Large (67-100%) -Granulation Quality [place] -Slough/Fibrin Yes -Necrosis Amt Small (1-33%) -Necrotic Tissue Type Adherent Slough -Structure Exposed N/A -Texture (Hailee-wound Skin Appearance) Assessed, Scarring -Moisture (Hailee-wound Skin Appearance No Abnormality, ) Assessed -Color (Hailee-wound Skin Appearance) No Abnormality, Assessed -Temperature (Hailee-wound Skin No Abnormality Appearance) (Pt Warm) -Tenderness on Palpation (Hailee-wound No Skin Appearance) -Ulcer Cleansing Rinsed/ Irrigated with Saline -Foul Odor after Cleansing No -Anesthetic Used 4% Lidocaine Solution [Edema Assessment] -Lower Limb Edema Present No WC - Nurse 2 - General Ulcer CM Notes Start: 03/11/19 11:22 Freq: Status: Active Protocol: Activity Type Activity Date Activity User E-Sign Co-Sign Detail Recorded Client Recorded Date Recorded By Document 03/11/19 12:18 DL [id number] 03/11/19 12:22 DL 03/11/19 12:18 Wound Center Nurse 2 [Procedure/Treatment] #1 sacroiliac region -Time 12:18 -Correct Patient Yes -Correct Side, Site, Position Yes -Correct Procedure Yes -Procedure Performed Yes -Type of Procedure Debridement -Clinical Debridement Subcutaneous -Post Debridement Size (cm) - Length 8.4 -Post Debridement Size (cm) - Width 2.0 -Post Debridement Size (cm) - Depth 0.2 -Total Square Cm 16.80 -Wound/Ulcer Outcome Not Healed -Ulcer Cleansing Rinsed/ Irrigated with Saline -Foul Odor after Cleansing No -Bioengineered Tissue No -Bleeding Controlled with Pressure -Offloading No -Treatment Response Procedure Tolerated Well [See Physician Procedure note for Specifics] Pain Scale: 0-10 Numeric [Pain] -Is Patient Pain Free? Yes Musculoskeletal: No Tenderness to Palpation of Joints or Extremities Neurological: Neuro grossly intact Psych/Mental Status: Normal Affect, Appropriate Debridement Note Post-Debridement Measurements/Treatment WC - Nurse 2 - General Ulcer CM Notes Start: 03/11/19 11:22 Freq: Status: Active Protocol: Activity Type Activity Date Activity User E-Sign Co-Sign Detail Recorded Client Recorded Date Recorded By Document 03/11/19 12:18 [id number] 03/11/19 12:22 03/11/19 12:18 Wound Center Nurse 2 #1 sacroiliac region -Time 12:18 -Correct Patient Yes -Correct Side, Site, Position Yes -Correct Procedure Yes -Procedure Performed Yes -Type of Procedure Debridement -Clinical Debridement Subcutaneous -Post Debridement Size (cm) - Length 8.4 -Post Debridement Size (cm) - Width 2.0 -Post Debridement Size (cm) - Depth 0.2 -Total Square Cm 16.80 -Wound/Ulcer Outcome Not Healed -Ulcer Cleansing Rinsed/ Irrigated with Saline -Foul Odor after Cleansing No -Bioengineered Tissue No -Bleeding Controlled with Pressure -Offloading No -Treatment Response Procedure Tolerated Well Pain Scale: 0-10 Numeric Is Patient Pain Free? Yes Wound debrided: Sacral ulcer Laterality: Not Applicable Type of Debridement: Excisional debridement Anesthesia Used: 4% Lidocaine Solution, 5% Lidocaine Gel Depth: Down to and including healthy tissue, in the subcutaneous layer Percentage of wound debrided: 100 Instrument Used: 7mm curette Tissue Removed: Subcutaneous tissue and slough Severity: Fat Layer Exposed Amount of bleeding with debridement: Mild Bleeding Controlled with: Compression and gauze Patient tolerated procedure well Assessment/Plan Assessment: 1. Hidradenitis bilateral perianal areas. 2. Extensive, complicated pilonidal cyst abscess. 3. Nonhealing hidradenitis ulcer bilateral perianal areas. 4. Nonhealing ulcer sacral area. 5. Former smoker. 6. s/p surgical preparation bilateral perianal areas with excision hidradenitis (162.5 cm2) and excision extensive, complicated pilonidal cyst abscess (75 cm2). 7. Diabetes mellitus. 8. Bilateral inguinal fungal rash. Plan: The ulcer continues to heal. Wound care is Aquacel Silver dressing changes daily. She has finished the Unasyn for Staphylococcus epidermidis, Enterocccus gallinarum, and Anaerobic cocci. She has a bilateral inguinal rash, probably fungal in nature, which is improved with nystatin powder. Prealbumin from was 13.7. Encourasge nutritional supplementation with protein to help the healing process. HgbA1c from 11/30/18 was 6.2. Discussed with the patient about further operative debridement and skin grafting. She is interested but not right now. She will let us know when she wants to proceed. For elective skin grafting, the HgbA1c needs to be less than 8. Followup 1 week. Code Visit [id number]: [id number] Kacey subq tissue 20 sq cm/<
[2019-03-18 10:38] VITALS: BP 120/48; PULSE 76; RESP 18; TEMP 36.4; BMI 35.9
--- NOTE | 2019-03-18 23:42 | PN.PCM_ITS ---
Type of Wound Date of Service: 03/18/19 Chief Complaint: Nonhealing hidradenitis ulcer bilateral perianal areas and sacral area. History of Wound: Surgery 11/22/18 - 1. Surgical preparation bilateral perianal areas with excision hidradenitis (162.5 cm2). 2. Excision extensive, complicated pilonidal cyst abscess (75 cm2). Wound care - Silver. Operative culture - Staphylococcus epidermidis, Enterococcus gallinarum, and Anaerobic cocci. She was placed on Unasyn and has finished them. Prealbumin from 11/23/18 was 13.7. Encourasge nutritional supplementation with protein to help the healing process. HgbA1c from 11/30/18 was 6.2. Today she denies fever. Her appetite is ok. Her bilateral inguinal rash has improved with the Nystatin Powder. Progress of Wound: Improved. - Physical Exam Vital Signs Temp Pulse Resp BP 97.5 F L 76 18 120/48 L 03/18/19 10:38 03/18/19 10:38 03/18/19 10:38 03/18/19 10:38 Wound Measurements and Assessment WC - Nurse 1 - General Ulcer Measurement Start: 03/11/19 11:22 Freq: Status: Active Protocol: Activity Type Activity Date Activity User E-Sign Co-Sign Detail Recorded Client Recorded Date Recorded By Document 03/18/19 10:38 DL [id number] 03/18/19 10:49 DL 03/18/19 10:38 Wound Center Nurse 1 [Ulcer Assessment] #1 sacroiliac region -Current Size (cm) - Length 7 -Current Size (cm) - Width 2.2 -Current Size (cm) - Depth 0.1 -Total Square Cm 15.4 -Photo Taken No -Exudate Amt Small -Exudate Type Serosanguineous -Wound Margin Distinct, Outline Attached -Granulation Amt Large (67-100%) -Granulation Quality [place],Red -Necrosis Amt Small (1-33%) -Necrotic Tissue Type Adherent Slough -Structure Exposed N/A -Texture (Hailee-wound Skin Appearance) Scarring -Moisture (Hailee-wound Skin Appearance No Abnormality ) -Color (Hailee-wound Skin Appearance) Rubor -Temperature (Hailee-wound Skin No Abnormality Appearance) (Pt Warm) -Tenderness on Palpation (Hailee-wound No Skin Appearance) -Ulcer Cleansing Rinsed/ Irrigated with Saline -Foul Odor after Cleansing No -Anesthetic Used 5% Lidocaine Gel - Nurse 2 - General Ulcer CM Notes Start: 03/11/19 11:22 Freq: Status: Active Protocol: Activity Type Activity Date Activity User E-Sign Co-Sign Detail Recorded Client Recorded Date Recorded By Document 03/18/19 11:07 DL [id number] 03/18/19 11:09 DL 03/18/19 11:07 Wound Center Nurse 2 [Procedure/Treatment] -Time 11:08 -Correct Patient Yes -Correct Side, Site, Position Yes -Correct Procedure Yes -Procedure Performed Yes -Type of Procedure Debridement -Clinical Debridement Subcutaneous -Post Debridement Size (cm) - Length 7 -Post Debridement Size (cm) - Width 2.3 -Post Debridement Size (cm) - Depth 0.1 -Total Square Cm 16.1 -Wound/Ulcer Outcome Not Healed -Ulcer Cleansing Rinsed/ Irrigated with Saline -Foul Odor after Cleansing No -Bioengineered Tissue No -Bleeding Controlled with Pressure -Offloading No -Treatment Response Procedure Tolerated Well [See Physician Procedure note for Specifics] Pain Scale: 0-10 Numeric [Pain] -Is Patient Pain Free? Yes Debridement Note Post-Debridement Measurements/Treatment - Nurse 2 - General Ulcer CM Notes Start: 03/11/19 11:22 Freq: Status: Active Protocol: Activity Type Activity Date Activity User E-Sign Co-Sign Detail Recorded Client Recorded Date Recorded By Document 03/11/19 12:18 DL [id number] 03/11/19 12:22 Document 03/18/19 11:07 DL [id number] 03/18/19 11:09 03/11/19 03/18/19 12:18 11:07 Wound Center Nurse 2 #1 sacroiliac region -Time 12:18 11:08 -Correct Patient Yes Yes -Correct Side, Site, Position Yes Yes -Correct Procedure Yes Yes -Procedure Performed Yes Yes -Type of Procedure Debridement Debridement -Clinical Debridement Subcutaneous Subcutaneous -Post Debridement Size (cm) - Length 8.4 7 -Post Debridement Size (cm) - Width 2.0 2.3 -Post Debridement Size (cm) - Depth 0.2 0.1 -Total Square Cm 16.80 16.1 -Wound/Ulcer Outcome Not Healed Not Healed -Ulcer Cleansing Rinsed/ Rinsed/ Irrigated with Irrigated with Saline Saline -Foul Odor after Cleansing No No -Bioengineered Tissue No No -Bleeding Controlled with Pressure Pressure -Offloading No No -Treatment Response Procedure Procedure Tolerated Well Tolerated Well Pain Scale: 0-10 Numeric Is Patient Pain Free? Yes Yes Wound debrided: #1 Bilateral perianal areas and sacral area. Laterality: Not Applicable Wound Grade/Stage: 2. Type of Debridement: Excisional debridement Anesthesia Used: 4% Lidocaine Solution Depth: Down to and including healthy tissue, in the subcutaneous layer Percentage of wound debrided: 100 Instrument Used: 5mm curette Tissue Removed: subcutaneous tissue. Severity: Fat Layer Exposed Amount of bleeding with debridement: Mild Bleeding Controlled with: Pressure Patient tolerated procedure well Assessment/Plan Assessment: 1. Hidradenitis bilateral perianal areas. 2. Extensive, complicated pilonidal cyst abscess. 3. Nonhealing hidradenitis ulcer bilateral perianal areas. 4. Nonhealing ulcer sacral area. 5. Former smoker. 6. s/p surgical preparation bilateral perianal areas with excision hidradenitis (162.5 cm2) and excision extensive, complicated pilonidal cyst abscess (75 cm2). 7. Diabetes mellitus. 8. Bilateral inguinal fungal rash, improved. Plan: The ulcer continues to heal. Continue Aquacel Silver dressing changes daily. She has finished the Unasyn for Staphylococcus epidermidis, Enterocccus gallinarum, and Anaerobic cocci. She has a bilateral inguinal rash, probably fungal in nature, that has improved with the Nystatin powder. Prealbumin from was 13.7. Encourasge nutritional supplementation with protein to help the healing process. HgbA1c from 11/30/18 was 6.2. Discussed with the patient about further operative debridement and skin grafting. She is interested but not right now. She will let us know when she wants to proceed. For elective skin grafting, the HgbA1c needs to be less than 8. Followup 2 weeks.
[2019-04-01 10:22] VITALS: BP 99/65; PULSE 86; RESP 18; TEMP 36.5; BMI 35.9
--- NOTE | 2019-04-01 17:06 | PN.PCM_ITS ---
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 History of Wound: Surgery 11/22/18 - 1. Surgical preparation bilateral perianal areas with excision hidradenitis (162.5 cm2). 2. Excision extensive, complicated pilonidal cyst abscess (75 cm2). Wound care - Silver. Operative culture - Staphylococcus epidermidis, Enterococcus gallinarum, and Anaerobic cocci. She was placed on Unasyn and has finished them. Prealbumin from 11/23/18 was 13.7. Encourasge nutritional supplementation with protein to help the healing process. HgbA1c from 11/30/18 was 6.2. Today she denies fever. Her appetite is ok. Her bilateral inguinal rash has gotten worse and she now has a vaginal yeast infection. Progress of Wound: Improved. - Physical Exam Vital Signs Temp Pulse Resp BP 97.7 F L 86 18 99/65 04/01/19 10:22 04/01/19 10:22 04/01/19 10:22 04/01/19 10:22 General: Alert, Oriented x3, Cooperative HEENT: Atraumatic Oral: Moist Mucosa Lungs: Normal air movement Cardiovascular: Regular rate Abdomen: Obese Extremities: No edema, Capillary Refill Less than 3 Seconds Skin: Ulcer/ Wound - Sacroiliac ulcerl, Rash Present - Groin and panus crease with red, itchy erythematous rash. She also has a vaginal yeast infection with white, cheesy discharge Wound Measurements and Assessment WC - Nurse 1 - General Ulcer Measurement Start: 03/11/19 11:22 Freq: Status: Active Protocol: Activity Type Activity Date Activity User E-Sign Co-Sign Detail Recorded Client Recorded Date Recorded By Document 04/01/19 10:22 MW [id number] 04/01/19 10:35 MW 04/01/19 10:22 Wound Center Nurse 1 [Ulcer Assessment] #1 sacroiliac region -Combined with other wound No -Current Size (cm) - Length 7.5 -Current Size (cm) - Width 0.5 -Current Size (cm) - Depth 0.1 -Total Square Cm 3.75 -Date of Last Picture (Recall this 04/01/19 field) -Photo Taken Yes -Epithelialization None Present -Tunneling No -Undermining/Tunneling No -Circular Undermining No -Exudate Amt Small -Exudate Type Serous -Wound Margin Flat & Intact -Granulation Amt Medium (34-66%) -Granulation Quality [place] -Slough/Fibrin Yes -Necrosis Amt Small (1-33%) -Necrotic Tissue Type Adherent Slough -Structure Exposed N/A -Texture (Hailee-wound Skin Appearance) Assessed, Scarring -Moisture (Hailee-wound Skin Appearance Assessed,Dry/ ) Scaly -Color (Hailee-wound Skin Appearance) No Abnormality, Assessed -Temperature (Hailee-wound Skin No Abnormality Appearance) (Pt Warm) -Tenderness on Palpation (Hailee-wound No Skin Appearance) -Ulcer Cleansing Rinsed/ Irrigated with Saline -Foul Odor after Cleansing No -Anesthetic Used 5% Lidocaine Gel [Edema Assessment] -Lower Limb Edema Present No WC - Nurse 2 - General Ulcer CM Notes Start: 03/11/19 11:22 Freq: Status: Active Protocol: Activity Type Activity Date Activity User E-Sign Co-Sign Detail Recorded Client Recorded Date Recorded By Document 04/01/19 11:04 DL [id number] 04/01/19 11:05 DL 04/01/19 11:04 Wound Center Nurse 2 [Procedure/Treatment] #1 sacroiliac region -Time 11:05 -Correct Patient Yes -Correct Side, Site, Position Yes -Correct Procedure Yes -Procedure Performed Yes -Type of Procedure Debridement -Clinical Debridement Subcutaneous -Post Debridement Size (cm) - Length 8 -Post Debridement Size (cm) - Width 1 -Post Debridement Size (cm) - Depth 0.1 -Total Square Cm 8 -Wound/Ulcer Outcome Not Healed -Ulcer Cleansing Rinsed/ Irrigated with Saline -Foul Odor after Cleansing No -Bioengineered Tissue No -Bleeding Controlled with Pressure -Offloading No -Treatment Response Procedure Tolerated Well [See Physician Procedure note for Specifics] Pain Scale: 0-10 Numeric [Pain] -Is Patient Pain Free? Yes Musculoskeletal: No Tenderness to Palpation of Joints or Extremities Neurological: Neuro grossly intact Psych/Mental Status: Normal Affect, Appropriate Debridement Note Post-Debridement Measurements/Treatment WC - Nurse 2 - General Ulcer CM Notes Start: 03/11/19 11:22 Freq: Status: Active Protocol: Activity Type Activity Date Activity User E-Sign Co-Sign Detail Recorded Client Recorded Date Recorded By Document 03/11/19 12:18 [id number] 03/11/19 12:22 Document 03/18/19 11:07 [id number] 03/18/19 11:09 Document 04/01/19 11:04 [id number] 04/01/19 11:05 03/11/19 03/18/19 04/01/19 12:18 11:07 11:04 Wound Center Nurse 2 #1 sacroiliac region -Time 12:18 11:08 11:05 -Correct Patient Yes Yes Yes -Correct Side, Site, Position Yes Yes Yes -Correct Procedure Yes Yes Yes -Procedure Performed Yes Yes Yes -Type of Procedure Debridement Debridement Debridement -Clinical Debridement Subcutaneous Subcutaneous Subcutaneous -Post Debridement Size (cm) - Length 8.4 7 8 -Post Debridement Size (cm) - Width 2.0 2.3 1 -Post Debridement Size (cm) - Depth 0.2 0.1 0.1 -Total Square Cm 16.80 16.1 8 -Wound/Ulcer Outcome Not Healed Not Healed Not Healed -Ulcer Cleansing Rinsed/ Rinsed/ Rinsed/ Irrigated with Irrigated with Irrigated with Saline Saline Saline -Foul Odor after Cleansing No No No -Bioengineered Tissue No No No -Bleeding Controlled with Pressure Pressure Pressure -Offloading No No No -Treatment Response Procedure Procedure Procedure Tolerated Well Tolerated Well Tolerated Well Pain Scale: 0-10 Numeric Is Patient Pain Free? Yes Yes Yes Wound debrided: Sacrum ulcer Type of Debridement: Excisional debridement Anesthesia Used: 4% Lidocaine Solution, 5% Lidocaine Gel Depth: Down to and including healthy tissue, in the subcutaneous layer Percentage of wound debrided: 100 Instrument Used: 7mm curette Tissue Removed: Subcutaneous tissue and slough Severity: Fat Layer Exposed Amount of bleeding with debridement: Mild Bleeding Controlled with: Pressure, Compression and gauze Patient tolerated procedure well Assessment/Plan Assessment: 1. Hidradenitis bilateral perianal areas. 2. Extensive, complicated pilonidal cyst abscess. 3. Nonhealing hidradenitis ulcer bilateral perianal areas. 4. Nonhealing ulcer sacral area. 5. Former smoker. 6. s/p surgical preparation bilateral perianal areas with excision hidradenitis (162.5 cm2) and excision extensive, complicated pilonidal cyst abscess (75 cm2). 7. Diabetes mellitus. 8. Bilateral inguinal fungal rash, improved. Plan: The ulcer continues to heal. Continue Aquacel Silver dressing changes daily. She has finished the Unasyn for Staphylococcus epidermidis, Enterocccus gallinarum, and Anaerobic cocci. She has a bilateral inguinal rash, probably fungal in nature, that had improved with the Nystatin powder but has gotten worse. She now is having white discharge that is itchy. Prealbumin from was 13.7. Encourasge nutritional supplementation with protein to help the healing process. HgbA1c from 11/30/18 was 6.2. Discussed with the patient about further operative debridement and skin grafting. She is interested but not right now. She will let us know when she wants to proceed. For elective skin grafting, the HgbA1c needs to be less than 8. Will renew the nystatin powder and start her on Diflucan daily x 7 days. Followup 2 weeks. Code Visit [id number]: [id number] Kacey subq tissue 20 sq cm/<
== END 2019-04-06 23:59 ==
LOC: WC 10:15
PROVIDERS: Family Provider Nurse Practitioner Family; PCP Nurse Practitioner Family; Visit Provider Surgery
DX: L73.2 Hidradenitis suppurativa (principal); E11.622 Type 2 diabetes mellitus with other skin ulcer; L98.422 Non-pressure chronic ulcer of back with fat layer exposed; B35.6 Tinea cruris; L05.01 Pilonidal cyst with abscess; Z87.891 Personal history of nicotine dependence; B37.3 Candidiasis of vulva and vagina
CPT/HCPCS: 11042

== ENCOUNTER 2019-04-11 14:25 | Outpatient (RCR) | payer MEDICARE, OTHER, SELFPAY ==
[2019-04-11 15:08] LABS: Hematocrit 31.8 % (37-47); Hemoglobin 9.2 g/dL (12.0-15.0); Mean Corp Hgb Conc 28.9 g/dL (32-36); Mean Corpuscular Hgb 23.2 pg (27.0-32.0); Mean Corpuscular Volume 80.3 fL (81-99); Mean Platelet Vol. 10.7 fl (6.2-12.0); Platelet Count 285 K/mm3 (150-450); RBC Distribution Width CV 15.7 % (11.6-14.6); RBC Distribution Width SD 45.4 fl (35.1-43.9); Red Blood Count 3.96 M/mm3 (4.2-5.4); White Blood Count 9.8 K/mm3 (4.4-11.0)
[2019-04-11 15:10] LABS: Color, Urine Yellow (Yellow); Glucose, Dipstick Normal (Normal); Ketone-Dipstick Negative (Negative); Leukocyte Esterase-Dipstick 500 /ul (Negative); Nitrite-Dipstick Negative (Negative); Occult Blood-Urine 250 /ul (Negative); Protein-Dipstick 15 mg/dl (Negative); Urine Bilirubin Dipstick Negative (Negative); Urine Clarity Cloudy (Clear); Urine Urobilinogen Normal (Normal)
[2019-04-11 15:28] LABS: ALB/GLOB Ratio 0.6 RATIO (0.9-2.4); AST(SGOT) 17 U/L (15-37); Alanine Aminotransfer ALT/SGPT 21 U/L (13-56); Albumin, Serum 3.2 g/dL (3.2-5.0); Alkaline Phosphatase 111 U/L (45-117); Anion Gap 6 (5-15); BUN 35 mg/dL (7-18); BUN/Creat Ratio 48.5 RATIO (10-20); Calcium,Total 9.2 mg/dL (8.5-10.1); Chloride 102 mmol/L (98-107); Cholesterol 138 mg/dL (200); Creatinine, Serum 0.72 mg/dL (0.55-1.02); EST Glomerular Filtration Rate 84 mL/min (>60); Est Glom Filt Rate - Afr Amer 102 mL/min (>60); Globulin 5.5 g/dL (2.2-4.2); Glucose 119 mg/dL (74-106); High Density Lipoprotein 36 mg/dL; Potassium 4.5 mmol/L (3.5-5.1); Protein, Total 8.7 g/dL (6.4-8.2); Sodium Level 140 mmol/L (136-145); Triglycerides 235 mg/dL; Very Low Density Lipoprotein 47 mg/dL (5-40)
[2019-04-11 15:54] LABS: Hemoglobin A1c 7.4 % (4.2-6.3)
== END 2019-05-06 23:59 ==
LOC: LABSPEC 14:25
PROVIDERS: Family Provider Nurse Practitioner Family; PCP Nurse Practitioner Family; Referring Provider Family Medicine; Visit Provider Family Medicine
DX: L05.01 Pilonidal cyst with abscess (principal); L73.2 Hidradenitis suppurativa; E11.40 Type 2 diabetes mellitus with diabetic neuropathy, unspecified; J44.9 Chronic obstructive pulmonary disease, unspecified; I25.10 Atherosclerotic heart disease of native coronary artery without angina pectoris; I10 Essential (primary) hypertension; M06.9 Rheumatoid arthritis, unspecified; E11.36 Type 2 diabetes mellitus with diabetic cataract; M54.5 Low back pain; Z43.3 Encounter for attention to colostomy; M19.90 Unspecified osteoarthritis, unspecified site; I44.0 Atrioventricular block, first degree; K64.9 Unspecified hemorrhoids; D50.9 Iron deficiency anemia, unspecified; K21.9 Gastro-esophageal reflux disease without esophagitis; E03.9 Hypothyroidism, unspecified; H91.90 Unspecified hearing loss, unspecified ear; E78.5 Hyperlipidemia, unspecified; F41.9 Anxiety disorder, unspecified; F32.9 Major depressive disorder, single episode, unspecified; I25.2 Old myocardial infarction; Z79.01 Long term (current) use of anticoagulants; Z79.4 Long term (current) use of insulin; Z87.01 Personal history of pneumonia (recurrent); Z87.891 Personal history of nicotine dependence; Z99.81 Dependence on supplemental oxygen; Z90.710 Acquired absence of both cervix and uterus; R30.0 Dysuria; R39.15 Urgency of urination
CPT/HCPCS: 80053; 80061; 81002; 83036; 84443; 85027; 87086; 87088

== ENCOUNTER 2019-04-29 09:45 | Outpatient (RCR) | payer MEDICARE, OTHER, SELFPAY ==
[2019-04-07 00:53] VITALS: BP 99/65; PULSE 86; RESP 18; TEMP 36.5
[2019-04-15 11:20] VITALS: BP 124/61; PULSE 66; RESP 18; TEMP 36.6; BMI 35.9
--- NOTE | 2019-04-15 22:37 | PN.PCM_ITS ---
Type of Wound Date of Service: 04/15/19 Chief Complaint: Nonhealing hidradenitis ulcer bilateral perianal areas and sacral area. History of Wound: Surgery 11/22/18 - 1. Surgical preparation bilateral perianal areas with excision hidradenitis (162.5 cm2). 2. Excision extensive, complicated pilonidal cyst abscess (75 cm2). Wound care - Silver. Operative culture - Staphylococcus epidermidis, Enterococcus gallinarum, and Anaerobic cocci. She was placed on Unasyn and has finished them. Prealbumin from 11/23/18 was 13.7. Encourasge nutritional supplementation with protein to help the healing process. HgbA1c from 11/30/18 was 6.2. Today she denies fever. Her appetite is ok. Her bilateral inguinal rash has improved with the Nystatin Powder. Progress of Wound: Improved. - Physical Exam Vital Signs Temp Pulse Resp BP 97.8 F 66 18 124/61 H 04/15/19 11:20 04/15/19 11:20 04/15/19 11:20 04/15/19 11:20 Wound Measurements and Assessment WC - Nurse 1 - General Ulcer Measurement Start: 04/15/19 11:20 Freq: Status: Active Protocol: Activity Type Activity Date Activity User E-Sign Co-Sign Detail Recorded Client Recorded Date Recorded By Document 04/15/19 11:20 DL [id number] 04/15/19 11:36 DL 04/15/19 11:20 Wound Center Nurse 1 [Ulcer Assessment] #1 sacroiliac region -Current Size (cm) - Length 7.4 -Current Size (cm) - Width 2.8 -Current Size (cm) - Depth 0.1 -Total Square Cm 20.72 -Photo Taken No -Exudate Amt Medium -Exudate Type Serosanguineous -Wound Margin Distinct, Outline Attached -Granulation Amt Large (67-100%) -Granulation Quality Hyper- granulation,Red -Necrosis Amt Small (1-33%) -Necrotic Tissue Type Adherent Slough -Structure Exposed N/A -Texture (Hailee-wound Skin Appearance) Scarring -Moisture (Hailee-wound Skin Appearance No Abnormality ) -Color (Hailee-wound Skin Appearance) No Abnormality -Temperature (Hailee-wound Skin No Abnormality Appearance) (Pt Warm) -Tenderness on Palpation (Hailee-wound No Skin Appearance) -Ulcer Cleansing Wound Cleanser -Foul Odor after Cleansing No -Anesthetic Used 4% Lidocaine Solution - Nurse 2 - General Ulcer CM Notes Start: 04/15/19 11:20 Freq: Status: Active Protocol: Activity Type Activity Date Activity User E-Sign Co-Sign Detail Recorded Client Recorded Date Recorded By Document 04/15/19 11:54 DL [id number] 04/15/19 11:56 04/15/19 11:54 Wound Center Nurse 2 [Procedure/Treatment] -Time 11:54 -Correct Patient Yes -Correct Side, Site, Position Yes -Correct Procedure Yes -Procedure Performed Yes -Type of Procedure Debridement -Clinical Debridement Subcutaneous -Post Debridement Size (cm) - Length 7.2 -Post Debridement Size (cm) - Width 2.0 -Post Debridement Size (cm) - Depth 0.2 -Total Square Cm 14.40 -Wound/Ulcer Outcome Not Healed -Ulcer Cleansing Rinsed/ Irrigated with Saline -Foul Odor after Cleansing No -Bioengineered Tissue No -Bleeding Controlled with Pressure -Offloading No -Treatment Response Procedure Tolerated Well [See Physician Procedure note for Specifics] Pain Scale: 0-10 Numeric [Pain] -Is Patient Pain Free? Yes Debridement Note Post-Debridement Measurements/Treatment - Nurse 2 - General Ulcer CM Notes Start: 04/15/19 11:20 Freq: Status: Active Protocol: Activity Type Activity Date Activity User E-Sign Co-Sign Detail Recorded Client Recorded Date Recorded By Document 04/15/19 11:54 [id number] 04/15/19 11:56 04/15/19 11:54 Wound Center Nurse 2 #1 sacroiliac region -Time 11:54 -Correct Patient Yes -Correct Side, Site, Position Yes -Correct Procedure Yes -Procedure Performed Yes -Type of Procedure Debridement -Clinical Debridement Subcutaneous -Post Debridement Size (cm) - Length 7.2 -Post Debridement Size (cm) - Width 2.0 -Post Debridement Size (cm) - Depth 0.2 -Total Square Cm 14.40 -Wound/Ulcer Outcome Not Healed -Ulcer Cleansing Rinsed/ Irrigated with Saline -Foul Odor after Cleansing No -Bioengineered Tissue No -Bleeding Controlled with Pressure -Offloading No -Treatment Response Procedure Tolerated Well Pain Scale: 0-10 Numeric Is Patient Pain Free? Yes Wound debrided: #1 Bilateral perianal area and sacral area. Laterality: Not Applicable Wound Grade/Stage: 2. Type of Debridement: Excisional debridement Anesthesia Used: 4% Lidocaine Solution Depth: Down to and including healthy tissue, in the subcutaneous layer Percentage of wound debrided: 100 Instrument Used: 5mm curette Tissue Removed: subcutaneous tissue. Severity: Fat Layer Exposed Amount of bleeding with debridement: Mild Bleeding Controlled with: Pressure Patient tolerated procedure well Assessment/Plan Assessment: 1. Hidradenitis bilateral perianal areas. 2. Extensive, complicated pilonidal cyst abscess. 3. Nonhealing hidradenitis ulcer bilateral perianal areas. 4. Nonhealing ulcer sacral area. 5. Former smoker. 6. s/p surgical preparation bilateral perianal areas with excision hidradenitis (162.5 cm2) and excision extensive, complicated pilonidal cyst abscess (75 cm2). 7. Diabetes mellitus. 8. Bilateral inguinal fungal rash, improved. Plan: The ulcer continues to heal. Continue Aquacel Silver dressing changes daily. She has finished the Unasyn for Staphylococcus epidermidis, Enterocccus gallinarum, and Anaerobic cocci. She has a bilateral inguinal rash, probably fu ngal in nature, that has improved with the Nystatin powder. Prealbumin from was 13.7. Encourasge nutritional supplementation with protein to help the healing process. HgbA1c from 11/30/18 was 6.2. Discussed with the patient about further operative debridement and skin grafting. She is interested but not right now. She will let us know when she wants to proceed. For elective skin grafting, the HgbA1c needs to be less than 8. Followup 2 weeks.
[2019-04-29 09:49] VITALS: BP 119/73; PULSE 85; RESP 20; TEMP 36.3; BMI 35.9
--- NOTE | 2019-04-29 23:07 | PCM.WC.PN ---
Type of Wound Date of Service: 04/29/19 Chief Complaint: Nonhealing hidradenitis ulcer bilateral perianal areas and sacral area. History of Wound: Surgery 11/22/18 - 1. Surgical preparation bilateral perianal areas with excision hidradenitis (162.5 cm2). 2. Excision extensive, complicated pilonidal cyst abscess (75 cm2). Wound care - Silver. Operative culture - Staphylococcus epidermidis, Enterococcus gallinarum, and Anaerobic cocci. She was placed on Unasyn and has finished them. Prealbumin from 11/23/18 was 13.7. Encourasge nutritional supplementation with protein to help the healing process. HgbA1c from 04/11/19 was 7.4. Today she denies fever. Her appetite is ok. Her bilateral inguinal rash has improved with the Nystatin Powder. Progress of Wound: Improved. - Physical Exam Vital Signs Temp Pulse Resp BP 97.3 F L 85 20 H 119/73 04/29/19 09:49 04/29/19 09:49 04/29/19 09:49 04/29/19 09:49 Wound Measurements and Assessment WC - Nurse 1 - General Ulcer Measurement Start: 04/15/19 11:20 Freq: Status: Active Protocol: Activity Type Activity Date Activity User E-Sign Co-Sign Detail Recorded Client Recorded Date Recorded By Document 04/29/19 09:49 [facility] [id number] 04/29/19 09:55 [facility] 04/29/19 09:49 Wound Center Nurse 1 [Ulcer Assessment] #1 sacroiliac region -Combined with other wound No -Current Size (cm) - Length 7.5 -Current Size (cm) - Width 0.7 -Current Size (cm) - Depth 0.4 -Total Square Cm 5.25 -Photo Taken No -Epithelialization Small 1-33% -Tunneling No -Undermining/Tunneling No -Circular Undermining No -Exudate Amt Small -Exudate Type Serosanguineous -Wound Margin Distinct, Outline Attached -Granulation Amt Large (67-100%) -Granulation Quality [place] -Slough/Fibrin Yes -Necrosis Amt Small (1-33%) -Necrotic Tissue Type Adherent Slough -Texture (Hailee-wound Skin Appearance) Assessed, Scarring -Moisture (Hailee-wound Skin Appearance Assessed ) -Color (Hailee-wound Skin Appearance) Assessed -Temperature (Hailee-wound Skin No Abnormality Appearance) (Pt Warm) -Tenderness on Palpation (Hailee-wound No Skin Appearance) -Ulcer Cleansing soap and water -Foul Odor after Cleansing No -Anesthetic Used 5% Lidocaine Gel - Nurse 2 - General Ulcer CM Notes Start: 04/15/19 11:20 Freq: Status: Active Protocol: Activity Type Activity Date Activity User E-Sign Co-Sign Detail Recorded Client Recorded Date Recorded By Document 04/29/19 10:24 [id number] 04/29/19 10:28 04/29/19 10:24 Wound Center Nurse 2 [Procedure/Treatment] -Time 10:25 -Correct Patient Yes -Correct Side, Site, Position Yes -Correct Procedure Yes -Procedure Performed Yes -Type of Procedure Debridement -Clinical Debridement Subcutaneous -Post Debridement Size (cm) - Length 7.3 -Post Debridement Size (cm) - Width 1 -Post Debridement Size (cm) - Depth 0.4 -Total Square Cm 7.3 -Wound/Ulcer Outcome Not Healed -Ulcer Cleansing Rinsed/ Irrigated with Saline -Foul Odor after Cleansing No -Bioengineered Tissue No -Bleeding Controlled with Pressure -Offloading No -Treatment Response Procedure Tolerated Well [See Physician Procedure note for Specifics] Pain Scale: 0-10 Numeric [Pain] -Is Patient Pain Free? Yes Debridement Note Post-Debridement Measurements/Treatment - Nurse 2 - General Ulcer CM Notes Start: 04/15/19 11:20 Freq: Status: Active Protocol: Activity Type Activity Date Activity User E-Sign Co-Sign Detail Recorded Client Recorded Date Recorded By Document 04/15/19 11:54 [id number] 04/15/19 11:56 Document 04/29/19 10:24 [id number] 04/29/19 10:28 04/15/19 04/29/19 11:54 10:24 Wound Center Nurse 2 #1 sacroiliac region -Time 11:54 10:25 -Correct Patient Yes Yes -Correct Side, Site, Position Yes Yes -Correct Procedure Yes Yes -Procedure Performed Yes Yes -Type of Procedure Debridement Debridement -Clinical Debridement Subcutaneous Subcutaneous -Post Debridement Size (cm) - Length 7.2 7.3 -Post Debridement Size (cm) - Width 2.0 1 -Post Debridement Size (cm) - Depth 0.2 0.4 -Total Square Cm 14.40 7.3 -Wound/Ulcer Outcome Not Healed Not Healed -Ulcer Cleansing Rinsed/ Rinsed/ Irrigated with Irrigated with Saline Saline -Foul Odor after Cleansing No No -Bioengineered Tissue No No -Bleeding Controlled with Pressure Pressure -Offloading No No -Treatment Response Procedure Procedure Tolerated Well Tolerated Well Pain Scale: 0-10 Numeric Is Patient Pain Free? Yes Yes Wound debrided: #1 Bilateral perianal area and sacral area. Laterality: Not Applicable Wound Grade/Stage: 2. Type of Debridement: Excisional debridement Anesthesia Used: 4% Lidocaine Solution Depth: Down to and including healthy tissue, in the subcutaneous layer Percentage of wound debrided: 100 Instrument Used: 3mm curette Tissue Removed: subcutaneous tissue. Severity: Fat Layer Exposed Amount of bleeding with debridement: Mild Bleeding Controlled with: Pressure Patient tolerated procedure well Assessment/Plan Assessment: 1. Hidradenitis bilateral perianal areas. 2. Extensive, complicated pilonidal cyst abscess. 3. Nonhealing hidradenitis ulcer bilateral perianal areas. 4. Nonhealing ulcer sacral area. 5. Former smoker. 6. s/p surgical preparation bilateral perianal areas with excision hidradenitis (162.5 cm2) and excision extensive, complicated pilonidal cyst abscess (75 cm2). 7. Diabetes mellitus. 8. Bilateral inguinal fungal rash, improved. Plan: The ulcer continues to heal. Continue Aquacel Silver dressing changes daily. She has finished the Unasyn for Staphylococcus epidermidis, Enterocccus gallinarum, and Anaerobic cocci. She has a bilateral inguinal rash, probably fungal in nature, that has improved with the Nystatin powder. Prealbumin from was 13.7. Encourasge nutritional supplementation with protein to help the healing process. HgbA1c from 11/30/18 was 6.2. Discussed with the patient about further operative debridement and skin grafting. She is interested but not right now. She will let us know when she wants to proceed. For elective skin grafting, the HgbA1c needs to be less than 8. Followup 2 weeks.
== END 2019-05-06 23:59 ==
LOC: WC 09:45
PROVIDERS: Family Provider Nurse Practitioner Family; PCP Nurse Practitioner Family; Visit Provider Surgery
DX: L73.2 Hidradenitis suppurativa (principal); E11.622 Type 2 diabetes mellitus with other skin ulcer; L98.422 Non-pressure chronic ulcer of back with fat layer exposed; L05.01 Pilonidal cyst with abscess; B35.6 Tinea cruris; Z87.891 Personal history of nicotine dependence
CPT/HCPCS: 11042

== ENCOUNTER 2019-05-27 10:30 | Outpatient (RCR) | payer MEDICARE, OTHER, SELFPAY ==
[2019-05-07 00:49] VITALS: BP 119/73; PULSE 85; RESP 20; TEMP 36.3; BMI 36.8
[2019-05-13 10:45] VITALS: BMI 36.8
--- NOTE | 2019-05-13 23:10 | PCM.WC.PN ---
Type of Wound Date of Service: 05/13/19 Chief Complaint: Nonhealing hidradenitis ulcer bilateral perianal areas and sacral area. History of Wound: Surgery 11/22/18 - 1. Surgical preparation bilateral perianal areas with excision hidradenitis (162.5 cm2). 2. Excision extensive, complicated pilonidal cyst abscess (75 cm2). Wound care - Silver. Operative culture - Staphylococcus epidermidis, Enterococcus gallinarum, and Anaerobic cocci. She was placed on Unasyn and has finished them. Prealbumin from 11/23/18 was 13.7. Encourasge nutritional supplementation with protein to help the healing process. HgbA1c from 04/11/19 was 7.4. Today she denies fever. Her appetite is ok. Her bilateral inguinal rash has improved with the Nystatin Powder. Progress of Wound: Improved. - Physical Exam Vital Signs Temp Pulse Resp BP 97.3 F L 85 20 H 119/73 05/07/19 00:49 05/07/19 00:49 05/07/19 00:49 05/07/19 00:49 Wound Measurements and Assessment WC - Nurse 1 - General Ulcer Measurement Start: 05/13/19 10:45 Freq: Status: Active Protocol: Activity Type Activity Date Activity User E-Sign Co-Sign Detail Recorded Client Recorded Date Recorded By Document 05/13/19 10:45 MW [id number] 05/13/19 10:56 MW 05/13/19 10:45 Wound Center Nurse 1 [Ulcer Assessment] #1 sacroiliac region -Combined with other wound No -Current Size (cm) - Length 6.5 -Current Size (cm) - Width 0.7 -Current Size (cm) - Depth 0.4 -Total Square Cm 4.55 -Photo Taken No -Epithelialization Small 1-33% -Tunneling No -Undermining/Tunneling No -Circular Undermining No -Exudate Amt Medium -Exudate Type Serous -Wound Margin Flat & Intact -Granulation Amt Large (67-100%) -Granulation Quality [place] -Slough/Fibrin Yes -Necrosis Amt Small (1-33%) -Necrotic Tissue Type Adherent Slough -Structure Exposed N/A -Texture (Hailee-wound Skin Appearance) Assessed, Scarring -Moisture (Hailee-wound Skin Appearance No Abnormality, ) Assessed -Color (Hailee-wound Skin Appearance) No Abnormality, Assessed -Temperature (Hailee-wound Skin No Abnormality Appearance) (Pt Warm) -Tenderness on Palpation (Hailee-wound Yes Skin Appearance) -Ulcer Cleansing Rinsed/ Irrigated with Saline -Foul Odor after Cleansing No -Anesthetic Used 5% Lidocaine Gel [Edema Assessment] -Lower Limb Edema Present No WC - Nurse 2 - General Ulcer CM Notes Start: 05/13/19 10:45 Freq: Status: Active Protocol: Activity Type Activity Date Activity User E-Sign Co-Sign Detail Recorded Client Recorded Date Recorded By Document 05/13/19 11:25 [id number] 05/13/19 11:28 05/13/19 11:25 Wound Center Nurse 2 [Procedure/Treatment] #1 sacroiliac region -Time 11:26 -Correct Patient Yes -Correct Side, Site, Position Yes -Correct Procedure Yes -Procedure Performed Yes -Type of Procedure Debridement -Clinical Debridement Subcutaneous -Post Debridement Size (cm) - Length 7.0 -Post Debridement Size (cm) - Width 0.7 -Post Debridement Size (cm) - Depth 0.4 -Total Square Cm 4.90 -Wound/Ulcer Outcome Not Healed -Ulcer Cleansing Rinsed/ Irrigated with Saline -Foul Odor after Cleansing No -Bioengineered Tissue No -Bleeding Controlled with Pressure -Offloading No -Treatment Response Procedure Tolerated Well [See Physician Procedure note for Specifics] Pain Scale: 0-10 Numeric [Pain] -Is Patient Pain Free? Yes Debridement Note Post-Debridement Measurements/Treatment WC - Nurse 2 - General Ulcer CM Notes Start: 05/13/19 10:45 Freq: Status: Active Protocol: Activity Type Activity Date Activity User E-Sign Co-Sign Detail Recorded Client Recorded Date Recorded By Document 05/13/19 11:25 [id number] 05/13/19 11:28 05/13/19 11:25 Wound Center Nurse 2 #1 sacroiliac region -Time 11:26 -Correct Patient Yes -Correct Side, Site, Position Yes -Correct Procedure Yes -Procedure Performed Yes -Type of Procedure Debridement -Clinical Debridement Subcutaneous -Post Debridement Size (cm) - Length 7.0 -Post Debridement Size (cm) - Width 0.7 -Post Debridement Size (cm) - Depth 0.4 -Total Square Cm 4.90 -Wound/Ulcer Outcome Not Healed -Ulcer Cleansing Rinsed/ Irrigated with Saline -Foul Odor after Cleansing No -Bioengineered Tissue No -Bleeding Controlled with Pressure -Offloading No -Treatment Response Procedure Tolerated Well Pain Scale: 0-10 Numeric Is Patient Pain Free? Yes Wound debrided: #1 Bilateral perianal area and sacral area. Laterality: Not Applicable Wound Grade/Stage: 2. Type of Debridement: Excisional debridement Anesthesia Used: 4% Lidocaine Solution Depth: Down to and including healthy tissue, in the subcutaneous layer Percentage of wound debrided: 100 Instrument Used: 3mm curette Tissue Removed: subcutaneous tissue. Severity: Fat Layer Exposed Amount of bleeding with debridement: Mild Bleeding Controlled with: Pressure Patient tolerated procedure well Assessment/Plan Assessment: 1. Hidradenitis bilateral perianal areas. 2. Extensive, complicated pilonidal cyst abscess. 3. Nonhealing hidradenitis ulcer bilateral perianal areas. 4. Nonhealing ulcer sacral area. 5. Former smoker. 6. s/p surgical preparation bilateral perianal areas with excision hidradenitis (162.5 cm2) and excision extensive, complicated pilonidal cyst abscess (75 cm2). 7. Diabetes mellitus. 8. Bilateral inguinal fungal rash, improved. Plan: The ulcer continues to heal slowly. Continue Aquacel Silver dressing changes daily. She has finished the Unasyn for Staphylococcus epidermidis, Enterocccus gallinarum, and Anaerobic cocci. She has a bilateral inguinal rash, probably fungal in nature, that has improved with the Nystatin powder. Prealbumin from 11/23/18 was 13.7. Encourasge nutritional supplementation with protein to help the healing process. HgbA1c from 04/11/19 was 7.4. Discussed with the patient about further operative debridement and skin grafting. She is interested but not right now. She will let us know when she wants to proceed. For elective skin grafting, the HgbA1c needs to be less than 8. Followup 2 weeks.
[2019-05-27 10:56] VITALS: BP 107/44; PULSE 77; RESP 16; TEMP 36.6; BMI 36.8
--- NOTE | 2019-05-27 14:29 | PCM.WC.PN ---
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 History of Wound: Surgery 11/22/18 - 1. Surgical preparation bilateral perianal areas with excision hidradenitis (162.5 cm2). 2. Excision extensive, complicated pilonidal cyst abscess (75 cm2). Wound care - Silver. Operative culture - Staphylococcus epidermidis, Enterococcus gallinarum, and Anaerobic cocci. She was placed on Unasyn and has finished them. Prealbumin from 11/23/18 was 13.7. Encourasge nutritional supplementation with protein to help the healing process. HgbA1c from 04/11/19 was 7.4. Today she denies fever. Her appetite is ok. Her bilateral inguinal rash has improved with the Nystatin Powder. Progress of Wound: Improved. - Physical Exam Vital Signs Temp Pulse Resp BP 98 F 77 16 107/44 L 05/27/19 10:56 05/27/19 10:56 05/27/19 10:56 05/27/19 10:56 General: Alert, Oriented x3, Cooperative HEENT: Atraumatic Oral: Moist Mucosa Lungs: Normal air movement Cardiovascular: Regular rate Abdomen: Obese Extremities: Capillary Refill Less than 3 Seconds Skin: Ulcer/ Wound - sacral ulcer Wound Measurements and Assessment WC - Nurse 1 - General Ulcer Measurement Start: 05/13/19 10:45 Freq: Status: Active Protocol: Activity Type Activity Date Activity User E-Sign Co-Sign Detail Recorded Client Recorded Date Recorded By Document 05/27/19 10:56 [facility] [id number] 05/27/19 11:06 [facility] 05/27/19 10:56 Wound Center Nurse 1 [Ulcer Assessment] #1 sacroiliac region -Combined with other wound No -Current Size (cm) - Length 5.4 -Current Size (cm) - Width 1.5 -Current Size (cm) - Depth 0.3 -Total Square Cm 8.10 -Photo Taken No -Epithelialization Small 1-33% -Tunneling No -Undermining/Tunneling No -Circular Undermining No -Exudate Amt Small -Exudate Type Serous -Wound Margin Distinct, Outline Attached -Granulation Amt Large (67-100%) -Granulation Quality [place] -Slough/Fibrin No -Necrosis Amt None Present (0 %) -Texture (Hailee-wound Skin Appearance) Assessed, Scarring -Moisture (Hailee-wound Skin Appearance Assessed ) -Color (Hailee-wound Skin Appearance) Assessed -Temperature (Hailee-wound Skin No Abnormality Appearance) (Pt Warm) -Tenderness on Palpation (Hailee-wound No Skin Appearance) -Ulcer Cleansing Rinsed/ Irrigated with Saline -Foul Odor after Cleansing No -Anesthetic Used 5% Lidocaine Gel WC - Nurse 2 - General Ulcer CM Notes Start: 05/13/19 10:45 Freq: Status: Active Protocol: Activity Type Activity Date Activity User E-Sign Co-Sign Detail Recorded Client Recorded Date Recorded By Document 05/27/19 11:24 [id number] 05/27/19 11:27 05/27/19 11:24 Wound Center Nurse 2 [Procedure/Treatment] -Time 11:27 -Correct Patient Yes -Correct Side, Site, Position Yes -Correct Procedure Yes -Procedure Performed Yes -Type of Procedure Debridement -Clinical Debridement Subcutaneous -Post Debridement Size (cm) - Length 6.5 -Post Debridement Size (cm) - Width 2.3 -Post Debridement Size (cm) - Depth 0.1 -Total Square Cm 14.95 -Wound/Ulcer Outcome Not Healed -Ulcer Cleansing Rinsed/ Irrigated with Saline -Foul Odor after Cleansing No -Bioengineered Tissue No -Bleeding Controlled with Pressure -Offloading No -Treatment Response Procedure Tolerated Well [See Physician Procedure note for Specifics] Pain Scale: 0-10 Numeric [Pain] -Is Patient Pain Free? Yes Musculoskeletal: No Tenderness to Palpation of Joints or Extremities Neurological: Neuro grossly intact Psych/Mental Status: Normal Affect, Appropriate Debridement Note Post-Debridement Measurements/Treatment WC - Nurse 2 - General Ulcer CM Notes Start: 05/13/19 10:45 Freq: Status: Active Protocol: Activity Type Activity Date Activity User E-Sign Co-Sign Detail Recorded Client Recorded Date Recorded By Document 05/13/19 11:25 [id number] 05/13/19 11:28 Document 05/27/19 11:24 [id number] 05/27/19 11:27 05/13/19 05/27/19 11:25 11:24 Wound Center Nurse 2 #1 sacroiliac region -Time 11:26 11:27 -Correct Patient Yes Yes -Correct Side, Site, Position Yes Yes -Correct Procedure Yes Yes -Procedure Performed Yes Yes -Type of Procedure Debridement Debridement -Clinical Debridement Subcutaneous Subcutaneous -Post Debridement Size (cm) - Length 7.0 6.5 -Post Debridement Size (cm) - Width 0.7 2.3 -Post Debridement Size (cm) - Depth 0.4 0.1 -Total Square Cm 4.90 14.95 -Wound/Ulcer Outcome Not Healed Not Healed -Ulcer Cleansing Rinsed/ Rinsed/ Irrigated with Irrigated with Saline Saline -Foul Odor after Cleansing No No -Bioengineered Tissue No No -Bleeding Controlled with Pressure Pressure -Offloading No No -Treatment Response Procedure Procedure Tolerated Well Tolerated Well Pain Scale: 0-10 Numeric Is Patient Pain Free? Yes Yes Wound debrided: sacral ulcer Laterality: Not Applicable Type of Debridement: Excisional debridement Anesthesia Used: 4% Lidocaine Solution, 5% Lidocaine Gel Depth: Down to and including healthy tissue, in the subcutaneous layer Percentage of wound debrided: 100 Instrument Used: 3mm curette Tissue Removed: Subcutaneous tissue and slough Severity: Limited To Skin Breakdown Amount of bleeding with debridement: Moderate Bleeding Controlled with: Pressure, Compression and gauze Patient tolerated procedure well Assessment/Plan Assessment: 1. Hidradenitis bilateral perianal areas. 2. Extensive, complicated pilonidal cyst abscess. 3. Nonhealing hidradenitis ulcer bilateral perianal areas. 4. Nonhealing ulcer sacral area. 5. Former smoker. 6. s/p surgical preparation bilateral perianal areas with excision hidradenitis (162.5 cm2) and excision extensive, complicated pilonidal cyst abscess (75 cm2). 7. Diabetes mellitus. 8. Bilateral inguinal fungal rash, improved. Plan: The ulcer continues to heal slowly. Continue Aquacel Silver dressing changes daily. Obtained a wound culture today due to the increased pain she is experiencing. She has finished the Unasyn for Staphylococcus epidermidis, Enterocccus gallinarum, and Anaerobic cocci. She has a bilateral inguinal rash, probably fungal in nature, that has improved with the Nystatin powder. Prealbumin from 11/23/18 was 13.7. Encourasge nutritional supplementation with protein to help the healing process. HgbA1c from 04/11/19 was 7.4. Discussed with the patient about further operative debridement and skin grafting. She is interested but not right now. She will let us know when she wants to proceed. For elective skin grafting, the HgbA1c needs to be less than 8. Followup 2 weeks. Code Visit [id number]: [id number] Kacey subq tissue 20 sq cm/<
== END 2019-06-06 23:59 ==
LOC: WC 10:30
PROVIDERS: Family Provider Nurse Practitioner Family; PCP Nurse Practitioner Family; Referring Provider Surgery; Visit Provider Surgery
DX: L05.01 Pilonidal cyst with abscess (principal); L73.2 Hidradenitis suppurativa; B35.6 Tinea cruris; Z87.891 Personal history of nicotine dependence; L98.422 Non-pressure chronic ulcer of back with fat layer exposed; E11.9 Type 2 diabetes mellitus without complications
CPT/HCPCS: 11042; 87070; 87075; 87077; 87186; 87205

== ENCOUNTER 2019-07-01 11:15 | Outpatient (RCR) | payer MEDICARE, OTHER, SELFPAY ==
[2019-06-07 00:49] VITALS: BP 107/44; PULSE 77; RESP 16; TEMP 36.6
[2019-06-10 12:04] VITALS: BP 124/56; PULSE 88; RESP 18; TEMP 36.6; BMI 36.8
--- NOTE | 2019-06-10 13:42 | PN.PCM_ITS ---
(1) Ulcer of perianal area with fat layer exposed Status: Chronic Code(s): L98.492 - Non-pressure chronic ulcer of skin of other sites with fat layer exposed Comment: nonhealing hidradenitis ulcer bilateral perianal areas (2) Type 2 diabetes mellitus Status: Chronic Code(s): E11.9 - Type 2 diabetes mellitus without complications (3) Pilonidal cyst with abscess Status: Chronic Code(s): L05.01 - Pilonidal cyst with abscess Comment: Extensive, complicated pilonidal cyst abscess Type of Wound Date of Service: 06/10/19 Chief Complaint: Nonhealing hidradenitis ulcer bilateral perianal areas and sacral area. History of Wound: Surgery 11/22/18 - 1. Surgical preparation bilateral perianal areas with excision hidradenitis (162.5 cm2). 2. Excision extensive, complicated pilonidal cyst abscess (75 cm2). Wound care - Silver. Operative culture - Staphylococcus epidermidis, Enterococcus gallinarum, and Anaerobic cocci. She was placed on Unasyn and has finished them. Prealbumin from 11/23/18 was 13.7. Encourasge nutritional supplementation with protein to help the healing process. HgbA1c from 11/30/18 was 6.2. Today she denies fever. Her appetite is ok. Her bilateral inguinal rash has gotten worse and she now has a vaginal yeast infection. Progress of Wound: Stable - Physical Exam Vital Signs Temp Pulse Resp BP 97.8 F 88 18 124/56 H 06/10/19 12:04 06/10/19 12:04 06/10/19 12:04 06/10/19 12:04 General: Alert, Oriented x3, Cooperative HEENT: Atraumatic Oral: Moist Mucosa Lungs: Normal air movement Cardiovascular: Regular rate Extremities: Capillary Refill Less than 3 Seconds Skin: Ulcer/ Wound - perianal ulcer Wound Measurements and Assessment WC - Nurse 1 - General Ulcer Measurement Start: 06/10/19 12:02 Freq: Status: Active Protocol: Activity Type Activity Date Activity User E-Sign Co-Sign Detail Recorded Client Recorded Date Recorded By Document 06/10/19 12:04 [facility] [id number] 06/10/19 12:10 [facility] 06/10/19 12:04 Wound Center Nurse 1 [Ulcer Assessment] #1 sacroiliac region -Combined with other wound No -Current Size (cm) - Length 0.6 -Current Size (cm) - Width 0.1 -Current Size (cm) - Depth 0.1 -Total Square Cm 0.06 -Photo Taken No -Epithelialization Large 67-100% -Tunneling No -Undermining/Tunneling No -Circular Undermining No -Exudate Amt Small -Exudate Type Serous -Wound Margin Distinct, Outline Attached -Granulation Amt Medium (34-66%) -Granulation Quality [place] -Slough/Fibrin Yes -Necrosis Amt Small (1-33%) -Necrotic Tissue Type Adherent Slough -Texture (Hailee-wound Skin Appearance) Assessed, Scarring -Moisture (Hailee-wound Skin Appearance Assessed,Dry/ ) Scaly -Color (Hailee-wound Skin Appearance) Assessed -Temperature (Hailee-wound Skin No Abnormality Appearance) (Pt Warm) -Tenderness on Palpation (Hailee-wound No Skin Appearance) -Ulcer Cleansing Rinsed/ Irrigated with Saline -Foul Odor after Cleansing No -Anesthetic Used 4% Lidocaine Solution WC - Nurse 2 - General Ulcer CM Notes Start: 06/10/19 12:02 Freq: Status: Active Protocol: Activity Type Activity Date Activity User E-Sign Co-Sign Detail Recorded Client Recorded Date Recorded By Document 06/10/19 12:38 DL [id number] 06/10/19 12:42 DL 06/10/19 12:38 Wound Center Nurse 2 [Procedure/Treatment] -Time 12:38 -Correct Patient Yes -Correct Side, Site, Position Yes -Correct Procedure Yes -Procedure Performed Yes -Type of Procedure Debridement -Clinical Debridement Subcutaneous -Post Debridement Size (cm) - Length 6.0 -Post Debridement Size (cm) - Width 1.0 -Post Debridement Size (cm) - Depth 0.2 -Total Square Cm 6.00 -Wound/Ulcer Outcome Not Healed -Ulcer Cleansing Rinsed/ Irrigated with Saline -Foul Odor after Cleansing No -Bioengineered Tissue No -Bleeding Controlled with Pressure -Offloading No -Treatment Response Procedure Tolerated Well [See Physician Procedure note for Specifics] Pain Scale: 0-10 Numeric [Pain] -Is Patient Pain Free? Yes Musculoskeletal: No Muscle Wasting Neurological: Neuro grossly intact Psych/Mental Status: Normal Affect, Appropriate Debridement Note Post-Debridement Measurements/Treatment WC - Nurse 2 - General Ulcer CM Notes Start: 06/10/19 12:02 Freq: Status: Active Protocol: Activity Type Activity Date Activity User E-Sign Co-Sign Detail Recorded Client Recorded Date Recorded By Document 06/10/19 12:38 [id number] 06/10/19 12:42 DL 06/10/19 12:38 Wound Center Nurse 2 #1 sacroiliac region -Time 12:38 -Correct Patient Yes -Correct Side, Site, Position Yes -Correct Procedure Yes -Procedure Performed Yes -Type of Procedure Debridement -Clinical Debridement Subcutaneous -Post Debridement Size (cm) - Length 6.0 -Post Debridement Size (cm) - Width 1.0 -Post Debridement Size (cm) - Depth 0.2 -Total Square Cm 6.00 -Wound/Ulcer Outcome Not Healed -Ulcer Cleansing Rinsed/ Irrigated with Saline -Foul Odor after Cleansing No -Bioengineered Tissue No -Bleeding Controlled with Pressure -Offloading No -Treatment Response Procedure Tolerated Well Pain Scale: 0-10 Numeric Is Patient Pain Free? Yes Wound debrided: perianal ulcer Laterality: Not Applicable Type of Debridement: Excisional debridement Anesthesia Used: 5% Lidocaine Gel Depth: Down to and including healthy tissue, in the subcutaneous layer Percentage of wound debrided: 100 Instrument Used: 3mm curette Tissue Removed: Subcutaneous tissue and slough Severity: Limited To Skin Breakdown Amount of bleeding with debridement: Moderate Bleeding Controlled with: Pressure, Compression and gauze Patient tolerated procedure well Assessment/Plan Assessment: 1. Hidradenitis bilateral perianal areas. 2. Extensive, complicat ed pilonidal cyst abscess. 3. Nonhealing hidradenitis ulcer bilateral perianal areas. 4. Nonhealing ulcer sacral area. 5. Former smoker. 6. s/p surgical preparation bilateral perianal areas with excision hidradenitis (162.5 cm2) and excision extensive, complicated pilonidal cyst abscess (75 cm2). 7. Diabetes mellitus. 8. Bilateral inguinal fungal rash, improved. Plan: The ulcer continues to heal slowly. Continue Aquacel Silver dressing changes daily. Obtained a wound culture today due to the increased pain she is experiencing. She has finished the Unasyn for Staphylococcus epidermidis, Enterocccus gallinarum, and Anaerobic cocci. She has a bilateral inguinal rash, probably fungal in nature, that has improved with the Nystatin powder. Prealbumin from 11/23/18 was 13.7. Encourasge nutritional supplementation with protein to help the healing process. HgbA1c from 04/11/19 was 7.4. Discussed with the patient about further operative debridement and skin grafting. She is interested but not right now. She will let us know when she wants to proceed. For elective skin grafting, the HgbA1c needs to be less than 8. Followup 2 weeks. Code Visit 111xxx-[id number]: [id number] Kacey subq tissue 20 sq cm/<
[2019-06-17 13:54] VITALS: BP 132/56; PULSE 89; RESP 18; TEMP 36.4; BMI 36.8
--- NOTE | 2019-06-17 15:11 | PN.PCM_ITS ---
(1) Ulcer of perianal area with fat layer exposed Status: Chronic Current Visit: Yes Code(s): L98.492 - Non-pressure chronic ulcer of skin of other sites with fat layer exposed Comment: nonhealing hidradenitis ulcer bilateral perianal areas (2) Type 2 diabetes mellitus Status: Chronic Current Visit: Yes Code(s): E11.9 - Type 2 diabetes mellitus without complications (3) Pilonidal cyst with abscess Status: Chronic Current Visit: No Code(s): L05.01 - Pilonidal cyst with abs cess Comment: Extensive, complicated pilonidal cyst abscess Type of Wound Date of Service: 06/17/19 Chief Complaint: Nonhealing hidradenitis ulcer bilateral perianal areas and sacral area. History of Wound: Surgery 11/22/18 - 1. Surgical preparation bilateral perianal areas with excision hidradenitis (162.5 cm2). 2. Excision extensive, complicated pilonidal cyst abscess (75 cm2). Wound care - Silver. Operative culture - Staphylococcus epidermidis, Enterococcus gallinarum, and Anaerobic cocci. She was placed on Unasyn and has finished them. Prealbumin from 11/23/18 was 13.7. Encourasge nutritional supplementation with protein to help the healing process. HgbA1c from 11/30/18 was 6.2. Today she denies fever. Her appetite is ok. Her bilateral inguinal rash has gotten worse and she now has a vaginal yeast infection. Progress of Wound: Improved. - Physical Exam Vital Signs Temp Pulse Resp BP 97.6 F L 89 18 132/56 H 06/17/19 13:54 06/17/19 13:54 06/17/19 13:54 06/17/19 13:54 General: Alert, Oriented x3, Cooperative HEENT: Atraumatic Oral: Moist Mucosa Lungs: Normal air movement Cardiovascular: Regular rate Abdomen: Soft Extremities: Capillary Refill Less than 3 Seconds Skin: Ulcer/ Wound - perianal ulcer Wound Measurements and Assessment WC - Nurse 1 - General Ulcer Measurement Start: 06/10/19 12:02 Freq: Status: Active Protocol: Activity Type Activity Date Activity User E-Sign Co-Sign Detail Recorded Client Recorded Date Recorded By Document 06/17/19 13:54 DL [id number] 06/17/19 14:00 DL 06/17/19 13:54 Wound Center Nurse 1 [Ulcer Assessment] #1 sacroiliac region -Current Size (cm) - Length 1.8 -Current Size (cm) - Width 1 -Current Size (cm) - Depth 0.1 -Total Square Cm 1.8 -Photo Taken No -Exudate Amt Small -Exudate Type Serosanguineous -Wound Margin Distinct, Outline Attached -Granulation Amt Large (67-100%) -Granulation Quality Red -Necrosis Amt None Present (0 %) -Structure Exposed N/A -Texture (Hailee-wound Skin Appearance) Scarring -Moisture (Hailee-wound Skin Appearance No Abnormality ) -Color (Hailee-wound Skin Appearance) No Abnormality -Temperature (Hailee-wound Skin No Abnormality Appearance) (Pt Warm) -Tenderness on Palpation (Hailee-wound No Skin Appearance) -Ulcer Cleansing Rinsed/ Irrigated with Saline -Foul Odor after Cleansing No -Anesthetic Used 4% Lidocaine Solution WC - Nurse 2 - General Ulcer CM Notes Start: 06/10/19 12:02 Freq: Status: Active Protocol: Activity Type Activity Date Activity User E-Sign Co-Sign Detail Recorded Client Recorded Date Recorded By Document 06/17/19 14:33 [id number] 06/17/19 14:37 06/17/19 14:33 Wound Center Nurse 2 [Procedure/Treatment] -Time 14:34 -Correct Patient Yes -Correct Side, Site, Position Yes -Correct Procedure Yes -Procedure Performed Yes -Type of Procedure Debridement -Clinical Debridement Subcutaneous -Post Debridement Size (cm) - Length 3.0 -Post Debridement Size (cm) - Width 1.0 -Post Debridement Size (cm) - Depth 0.2 -Total Square Cm 3.00 -Wound/Ulcer Outcome Not Healed -Ulcer Cleansing Rinsed/ Irrigated with Saline -Foul Odor after Cleansing No -Bioengineered Tissue No -Bleeding Controlled with Pressure -Offloading No -Treatment Response Procedure Tolerated Well [See Physician Procedure note for Specifics] Pain Scale: 0-10 Numeric [Pain] -Is Patient Pain Free? Yes Musculoskeletal: No Muscle Wasting Neurological: Neuro grossly intact Psych/Mental Status: Normal Affect, Appropriate Debridement Note Post-Debridement Measurements/Treatment WC - Nurse 2 - General Ulcer CM Notes Start: 06/10/19 12:02 Freq: Status: Active Protocol: Activity Type Activity Date Activity User E-Sign Co-Sign Detail Recorded Client Recorded Date Recorded By Document 06/10/19 12:38 [id number] 06/10/19 12:42 Document 06/17/19 14:33 [id number] 06/17/19 14:37 06/10/19 06/17/19 12:38 14:33 Wound Center Nurse 2 #1 sacroiliac region -Time 12:38 14:34 -Correct Patient Yes Yes -Correct Side, Site, Position Yes Yes -Correct Procedure Yes Yes -Procedure Performed Yes Yes -Type of Procedure Debridement Debridement -Clinical Debridement Subcutaneous Subcutaneous -Post Debridement Size (cm) - Length 6.0 3.0 -Post Debridement Size (cm) - Width 1.0 1.0 -Post Debridement Size (cm) - Depth 0.2 0.2 -Total Square Cm 6.00 3.00 -Wound/Ulcer Outcome Not Healed Not Healed -Ulcer Cleansing Rinsed/ Rinsed/ Irrigated with Irrigated with Saline Saline -Foul Odor after Cleansing No No -Bioengineered Tissue No No -Bleeding Controlled with Pressure Pressure -Offloading No No -Treatment Response Procedure Procedure Tolerated Well Tolerated Well Pain Scale: 0-10 Numeric Is Patient Pain Free? Yes Yes Wound debrided: perianal Laterality: Not Applicable Type of Debridement: Excisional debridement Anesthesia Used: 5% Lidocaine Gel Depth: Down to and including healthy tissue, in the subcutaneous layer Percentage of wound debrided: 100 Instrument Used: 3mm curette Tissue Removed: subcutaneous tissue and slough Severity: Limited To Skin Breakdown Amount of bleeding with debridement: Mild Bleeding Controlled with: Pressure, Compression and gauze Patient tolerated procedure well Assessment/Plan Active Problems (Last Reviewed 04/17/19 @ 15:08 by Alejandrina Garcias MD) Ulcer of perianal area with fat layer exposed (Chronic) nonhealing hidradenitis ulcer bilateral perianal areas Type 2 diabetes mellitus (Chronic) Assessment: 1. Hidradenitis bilateral perianal areas. 2. Extensive, complicated pilonidal cyst abscess. 3. Nonhealing hidradenitis ulcer bilateral perianal areas. 4. Nonhealing ulcer sacral area. 5. Former smoker. 6. s/p surgical preparation bilateral perianal areas with excision hidradenitis (162.5 cm2) and excision extensive, complicated pilonidal cyst abscess (75 cm2). 7. Diabetes mellitus. 8. Bilateral inguinal fungal rash, improved. Plan: The ulcer continues to heal slowly. Moistened Aquacel Silver dressing changes daily. She has finished the Unasyn for Staphylococcus epidermidis, Enterocccus gallinarum, and Anaerobic cocci. Prealbumin from 11/23/18 was 13.7. Encourasge nutritional supplementation with protein to help the healing process. HgbA1c from 04/11/19 was 7.4. Discussed with the patient about further operative debridement and skin grafting. She is interested but not right now. She will let us know when she wants to proceed. Wound culture from 05/27/19 grew Staphylococcus aureus and Corynebacterium striatum. She was placed on Levaquin which she is tolerating well. Follow up in one week. Code Visit 111xxx-113xx: 14048 Kacey subq tissue 20 sq cm/<
[2019-06-24 13:39] VITALS: BP 127/66; PULSE 90; RESP 18; TEMP 36.6; BMI 36.8
--- NOTE | 2019-06-24 16:15 | PN.PCM_ITS ---
(1) Ulcer of perianal area with fat layer exposed Status: Chronic Current Visit: Yes Code(s): L98.492 - Non-pressure chronic ulcer of skin of other sites with fat layer exposed Comment: nonhealing hidradenitis ulcer bilateral perianal areas (2) Type 2 diabetes mellitus Status: Chronic Current Visit: Yes Code(s): E11.9 - Type 2 diabetes mellitus without complications (3) Pilonidal cyst with abscess Status: Chronic Current Visit: No Code(s): L05.01 - Pilonidal cyst with abs cess Comment: Extensive, complicated pilonidal cyst abscess Type of Wound Date of Service: 06/24/19 Chief Complaint: Nonhealing hidradenitis ulcer bilateral perianal areas and sacral area. History of Wound: Surgery 11/22/18 - 1. Surgical preparation bilateral perianal areas with excision hidradenitis (162.5 cm2). 2. Excision extensive, complicated pilonidal cyst abscess (75 cm2). Wound care - Stop silver and start Collagen hydrogel. Operative culture - Staphylococcus epidermidis, Enterococcus gallinarum, and Anaerobic cocci. She was placed on Unasyn and has finished them. Prealbumin from 11/23/18 was 13.7. Encourasge nutritional supplementation with protein to help the healing process. HgbA1c from 11/30/18 was 6.2. Today she denies fever. Her appetite is ok. Progress of Wound: Stable - Physical Exam Vital Signs Temp Pulse Resp BP 97.8 F 90 18 127/66 H 06/24/19 13:39 06/24/19 13:39 06/24/19 13:39 06/24/19 13:39 General: Alert, Oriented x3, Cooperative HEENT: Atraumatic Oral: Moist Mucosa Lungs: Normal air movement Cardiovascular: Regular rate Abdomen: Soft Extremities: Capillary Refill Less than 3 Seconds Skin: Ulcer/ Wound - perianal ulcer Wound Measurements and Assessment WC - Nurse 1 - General Ulcer Measurement Start: 06/10/19 12:02 Freq: Status: Active Protocol: Activity Type Activity Date Activity User E-Sign Co-Sign Detail Recorded Client Recorded Date Recorded By Document 06/24/19 13:39 DL [id number] 06/24/19 13:44 DL 06/24/19 13:39 Wound Center Nurse 1 [Ulcer Assessment] #1 sacroiliac region -Current Size (cm) - Length 2.5 -Current Size (cm) - Width 1.3 -Current Size (cm) - Depth 0.1 -Total Square Cm 3.25 -Photo Taken No -Exudate Amt Small -Exudate Type Serosanguineous -Wound Margin Flat & Intact -Granulation Amt Large (67-100%) -Granulation Quality Hyper- granulation,Red -Necrosis Amt None Present (0 %) -Structure Exposed N/A -Texture (Hailee-wound Skin Appearance) Scarring -Moisture (Hailee-wound Skin Appearance No Abnormality ) -Color (Hailee-wound Skin Appearance) No Abnormality -Temperature (Hailee-wound Skin No Abnormality Appearance) (Pt Warm) -Tenderness on Palpation (Hailee-wound No Skin Appearance) -Ulcer Cleansing Wound Cleanser -Foul Odor after Cleansing No -Anesthetic Used 5% Lidocaine Gel WC - Nurse 2 - General Ulcer CM Notes Start: 06/10/19 12:02 Freq: Status: Active Protocol: Activity Type Activity Date Activity User E-Sign Co-Sign Detail Recorded Client Recorded Date Recorded By Document 06/24/19 13:58 [id number] 06/24/19 13:59 06/24/19 13:58 Wound Center Nurse 2 [Procedure/Treatment] -Time 13:58 -Correct Patient Yes -Correct Side, Site, Position Yes -Correct Procedure Yes -Procedure Performed Yes -Type of Procedure Debridement -Clinical Debridement Subcutaneous -Post Debridement Size (cm) - Length 2.0 -Post Debridement Size (cm) - Width 1.5 -Post Debridement Size (cm) - Depth 0.1 -Total Square Cm 3.00 -Wound/Ulcer Outcome Not Healed -Ulcer Cleansing Rinsed/ Irrigated with Saline -Foul Odor after Cleansing No -Bioengineered Tissue No -Bleeding Controlled with Pressure -Offloading No -Treatment Response Procedure Tolerated Well [See Physician Procedure note for Specifics] Pain Scale: 0-10 Numeric [Pain] -Is Patient Pain Free? Yes Musculoskeletal: No Muscle Wasting Neurological: Neuro grossly intact Psych/Mental Status: Normal Affect, Appropriate Debridement Note Post-Debridement Measurements/Treatment WC - Nurse 2 - General Ulcer CM Notes Start: 06/10/19 12:02 Freq: Status: Active Protocol: Activity Type Activity Date Activity User E-Sign Co-Sign Detail Recorded Client Recorded Date Recorded By Document 06/10/19 12:38 [id number] 06/10/19 12:42 Document 06/17/19 14:33 [id number] 06/17/19 14:37 Document 06/24/19 13:58 [id number] 06/24/19 13:59 06/10/19 06/17/19 06/24/19 12:38 14:33 13:58 Wound Center Nurse 2 #1 sacroiliac region -Time 12:38 14:34 13:58 -Correct Patient Yes Yes Yes -Correct Side, Site, Position Yes Yes Yes -Correct Procedure Yes Yes Yes -Procedure Performed Yes Yes Yes -Type of Procedure Debridement Debridement Debridement -Clinical Debridement Subcutaneous Subcutaneous Subcutaneous -Post Debridement Size (cm) - Length 6.0 3.0 2.0 -Post Debridement Size (cm) - Width 1.0 1.0 1.5 -Post Debridement Size (cm) - Depth 0.2 0.2 0.1 -Total Square Cm 6.00 3.00 3.00 -Wound/Ulcer Outcome Not Healed Not Healed Not Healed -Ulcer Cleansing Rinsed/ Rinsed/ Rinsed/ Irrigated with Irrigated with Irrigated with Saline Saline Saline -Foul Odor after Cleansing No No No -Bioengineered Tissue No No No -Bleeding Controlled with Pressure Pressure Pressure -Offloading No No No -Treatment Response Procedure Procedure Procedure Tolerated Well Tolerated Well Tolerated Well Pain Scale: 0-10 Numeric Is Patient Pain Free? Yes Yes Yes Wound debrided: perianal ulcer Type of Debridement: Excisional debridement Anesthesia Used: 5% Lidocaine Gel Depth: Down to and including healthy tissue, in the subcutaneous layer Percentage of wound debrided: 100 Instrument Used: 3mm curette Tissue Removed: subcutaneous tissue and slough Severity: Limited To Skin Breakdown Amount of bleeding with debridement: Mild Bleeding Controlled with: Pressure, Compression and gauze Patient tolerated procedure well Assessment/Plan Active Problems (Last Reviewed 04/17/19 @ 15:08 by Alejandrina Garcias MD) Ulcer of perianal area with fat layer exposed (Chronic) nonhealing hidradenitis ulcer bilateral perianal areas Type 2 diabetes mellitus (Chronic) Assessment: 1. Hidradenitis bilateral perianal areas. 2. Extensive, complicated pilonidal cyst abscess. 3. Nonhealing hidradenitis ulcer bilateral perianal areas. 4. Nonhealing ulcer sacral area. 5. Former smoker. 6. s/p surgical preparation bilateral perianal areas with excision hidradenitis (162.5 cm2) and excision extensive, complicated pilonidal cyst abscess (75 cm2). 7. Diabetes mellitus. 8. Bilateral inguinal fungal rash, improved. Plan: The ulcer continues to heal slowly. Wound care: Change from silver to collagen hydrogel. She has finished the Unasyn for Staphylococcus epidermidis, Enterocccus gallinarum, and Anaerobic cocci. Prealbumin from 11/23/18 was 13.7. Encourasge nutritional supplementation with protein to help the healing process. HgbA1c from 04/11/19 was 7.4. Wound culture from 05/27/19 grew Staphylococcus aureus and Corynebacterium striatum. She was placed on Levaquin which she is tolerating well. Follow up in one week. Code Visit 111xxx-113xx: 24432 Kacey subq tissue 20 sq cm/<
[2019-07-01 11:44] VITALS: BP 137/53; PULSE 72; RESP 18; TEMP 36.2; BMI 36.8
--- NOTE | 2019-07-01 14:08 | PN.PCM_ITS ---
(1) Ulcer of perianal area with fat layer exposed Status: Chronic Code(s): L98.492 - Non-pressure chronic ulcer of skin of other sites with fat layer exposed Comment: nonhealing hidradenitis ulcer bilateral perianal areas (2) Type 2 diabetes mellitus Status: Chronic Code(s): E11.9 - Type 2 diabetes mellitus without complications (3) Pilonidal cyst with abscess Status: Chronic Code(s): L05.01 - Pilonidal cyst with abscess Comment: Extensive, complicated pilonidal cyst abscess Type of Wound Date of Service: 07/01/19 Chief Complaint: Nonhealing hidradenitis ulcer bilateral perianal areas and sacral area. History of Wound: Surgery 11/22/18 - 1. Surgical preparation bilateral perianal areas with excision hidradenitis (162.5 cm2). 2. Excision extensive, complicated pilonidal cyst abscess (75 cm2). Wound care - Stop Collagen hydr ogel, continues to have hypergranulation. Start dakin's solution daily. Operative culture - Staphylococcus epidermidis, Enterococcus gallinarum, and Anaerobic cocci. She was placed on Unasyn and has finished them. Prealbumin from 11/23/18 was 13.7. Encourasge nutritional supplementation with protein to help the healing process. HgbA1c from 11/30/18 was 6.2. Today she denies fever. Her appetite is ok. Progress of Wound: Stable - Physical Exam Vital Signs Temp Pulse Resp BP 97.1 F L 72 18 137/53 H 07/01/19 11:44 07/01/19 11:44 07/01/19 11:44 07/01/19 11:44 General: Alert, Oriented x3, Cooperative HEENT: Atraumatic Oral: Moist Mucosa Lungs: Normal air movement Cardiovascular: Regular rate Abdomen: Soft Extremities: Capillary Refill Less than 3 Seconds Skin: Ulcer/ Wound - perianal ulcer, hypergranulation present Wound Measurements and Assessment WC - Nurse 1 - General Ulcer Measurement Start: 06/10/19 12:02 Freq: Status: Active Protocol: Activity Type Activity Date Activity User E-Sign Co-Sign Detail Recorded Client Recorded Date Recorded By Document 07/01/19 11:44 [facility] [id number] 07/01/19 11:51 [facility] 07/01/19 11:44 Wound Center Nurse 1 [Ulcer Assessment] #1 sacroiliac region -Combined with other wound No -Current Size (cm) - Length 2.4 -Current Size (cm) - Width 1.3 -Current Size (cm) - Depth 0.1 -Total Square Cm 3.12 -Date of Last Picture (Recall this 07/01/19 field) -Photo Taken Yes -Epithelialization None Present -Tunneling No -Undermining/Tunneling No -Circular Undermining No -Exudate Amt Small -Exudate Type Serosanguineous -Wound Margin Distinct, Outline Attached -Granulation Amt Large (67-100%) -Granulation Quality Red -Slough/Fibrin No -Necrosis Amt None Present (0 %) -Texture (Hailee-wound Skin Appearance) Assessed, Scarring -Moisture (Hailee-wound Skin Appearance Assessed ) -Color (Hailee-wound Skin Appearance) Assessed -Temperature (Hailee-wound Skin No Abnormality Appearance) (Pt Warm) -Tenderness on Palpation (Hailee-wound No Skin Appearance) -Ulcer Cleansing Rinsed/ Irrigated with Saline -Foul Odor after Cleansing No -Anesthetic Used 5% Lidocaine Gel WC - Nurse 2 - General Ulcer CM Notes Start: 06/10/19 12:02 Freq: Status: Active Protocol: Activity Type Activity Date Activity User E-Sign Co-Sign Detail Recorded Client Recorded Date Recorded By Document 07/01/19 12:38 DL [id number] 07/01/19 12:39 DL 07/01/19 12:38 Wound Center Nurse 2 [Procedure/Treatment] -Time 12:38 -Correct Patient Yes -Correct Side, Site, Position Yes -Correct Procedure Yes -Procedure Performed Yes -Type of Procedure Debridement -Clinical Debridement Subcutaneous -Post Debridement Size (cm) - Length 2.0 -Post Debridement Size (cm) - Width 1.7 -Post Debridement Size (cm) - Depth 0.1 -Total Square Cm 3.40 -Wound/Ulcer Outcome Not Healed -Ulcer Cleansing Rinsed/ Irrigated with Saline -Foul Odor after Cleansing No -Bioengineered Tissue No -Bleeding Controlled with Pressure -Offloading No -Treatment Response Procedure Tolerated Well [See Physician Procedure note for Specifics] Pain Scale: 0-10 Numeric [Pain] -Is Patient Pain Free? Yes Musculoskeletal: No Muscle Wasting Neurological: Neuro grossly intact Psych/Mental Status: Normal Affect, Appropriate Debridement Note Post-Debridement Measurements/Treatment WC - Nurse 2 - General Ulcer CM Notes Start: 06/10/19 12:02 Freq: Status: Active Protocol: Activity Type Activity Date Activity User E-Sign Co-Sign Detail Recorded Client Recorded Date Recorded By Document 06/10/19 12:38 [id number] 06/10/19 12:42 Document 06/17/19 14:33 [id number] 06/17/19 14:37 Document 06/24/19 13:58 [id number] 06/24/19 13:59 Document 07/01/19 12:38 [id number] 07/01/19 12:39 06/10/19 06/17/19 06/24/19 12:38 14:33 13:58 Wound Center Nurse 2 #1 sacroiliac region -Time 12:38 14:34 13:58 -Correct Patient Yes Yes Yes -Correct Side, Site, Position Yes Yes Yes -Correct Procedure Yes Yes Yes -Procedure Performed Yes Yes Yes -Type of Procedure Debridement Debridement Debridement -Clinical Debridement Subcutaneous Subcutaneous Subcutaneous -Post Debridement Size (cm) - Length 6.0 3.0 2.0 -Post Debridement Size (cm) - Width 1.0 1.0 1.5 -Post Debridement Size (cm) - Depth 0.2 0.2 0.1 -Total Square Cm 6.00 3.00 3.00 -Wound/Ulcer Outcome Not Healed Not Healed Not Healed -Ulcer Cleansing Rinsed/ Rinsed/ Rinsed/ Irrigated with Irrigated with Irrigated with Saline Saline Saline -Foul Odor after Cleansing No No No -Bioengineered Tissue No No No -Bleeding Controlled with Pressure Pressure Pressure -Offloading No No No -Treatment Response Procedure Procedure Procedure Tolerated Well Tolerated Well Tolerated Well Pain Scale: 0-10 Numeric Is Patient Pain Free? Yes Yes Yes 07/01/19 12:38 Wound Center Nurse 2 #1 sacroiliac region -Time 12:38 -Correct Patient Yes -Correct Side, Site, Position Yes -Correct Procedure Yes -Procedure Performed Yes -Type of Procedure Debridement -Clinical Debridement Subcutaneous -Post Debridement Size (cm) - Length 2.0 -Post Debridement Size (cm) - Width 1.7 -Post Debridement Size (cm) - Depth 0.1 -Total Square Cm 3.40 -Wound/Ulcer Outcome Not Healed -Ulcer Cleansing Rinsed/ Irrigated with Saline -Foul Odor after Cleansing No -Bioengineered Tissue No -Bleeding Controlled with Pressure -Offloading No -Treatment Response Procedure Tolerated Well Pain Scale: 0-10 Numeric Is Patient Pain Free? Yes Wound debrided: left perianal ulcer Laterality: Left Type of Debridement: Excisional debridement Anesthesia Used: 5% Lidocaine Gel Depth: Down to and including healthy tissue, in the subcutaneous layer Percentage of wound debrided: 100 Instrument Used: 3mm curette Tissue Removed: subcutanous tissue and slough- hypergranulation tissue Severity: Limited To Skin Breakdown Amount of bleeding with debridement: Moderate Bleeding Controlled with: Pressure, Compression and gauze Patient tolerated procedure well Assessment/Plan Assessment: 1. Hidradenitis bilateral perianal areas. 2. Extensive, complicated pilonidal cyst abscess. 3. Nonhealing hidradenitis ulcer bilateral perianal areas. 4. Nonhealing ulcer sacral area. 5. Former smoker. 6. s/p surgical preparation bilateral perianal areas with excision hidradenitis (162.5 cm2) and excision extensive, complicated pilonidal cyst abscess (75 cm2). 7. Diabetes mellitus. 8. Bilateral inguinal fungal rash, improved. Plan: The ulcer continues to heal slowly. Today there was hypergranulation tissue present. Wound care: Change from collagen hydrogel to Dakin's solution moistened gauze, topped with dry gauze. She has finished the Unasyn for Staphylococcus epidermidis, Enterocccus gallinarum, and Anaerobic cocci. Prealbumin from 11/23/18 was 13.7. Encourasge nutritional supplementation with protein to help the healing process. HgbA1c from 04/11/19 was 7.4. Wound culture from 05/27/19 grew Staphylococcus aureus and Corynebacterium striatum. She was placed on Levaquin which she is tolerating well. She would like to restart her suppressive therapy for her psoriasis because it is really starting to bother her. Discussed how it could slow down her healing process even more. Patient verbalizes understanding and will think about this. Follow up in one week. Code Visit 111xxx-113xx: 76007 Kacey subq tissue 20 sq cm/<
== END 2019-07-06 23:59 ==
LOC: WC 11:15
PROVIDERS: Family Provider Nurse Practitioner Family; PCP Nurse Practitioner Family; Referring Provider Surgery; Visit Provider Surgery
DX: L05.01 Pilonidal cyst with abscess (principal); L73.2 Hidradenitis suppurativa; E11.622 Type 2 diabetes mellitus with other skin ulcer; B35.6 Tinea cruris; B37.3 Candidiasis of vulva and vagina; L98.421 Non-pressure chronic ulcer of back limited to breakdown of skin; Z87.891 Personal history of nicotine dependence
CPT/HCPCS: 11042

== ENCOUNTER 2019-08-05 13:00 | Outpatient (RCR) | payer MEDICARE, OTHER, SELFPAY ==
[2019-07-07 00:40] VITALS: BP 137/53; PULSE 72; RESP 18; TEMP 36.2
[2019-07-15 11:38] VITALS: BP 129/58; PULSE 91; RESP 18; TEMP 36; BMI 36.8
--- NOTE | 2019-07-15 14:48 | PCM.WC.PN ---
(1) Ulcer of perianal area with fat layer exposed Status: Chronic Code(s): L98.492 - Non-pressure chronic ulcer of skin of other sites with fat layer exposed Comment: nonhealing hidradenitis ulcer bilateral perianal areas (2) Type 2 diabetes mellitus Status: Chronic Code(s): E11.9 - Type 2 diabetes mellitus without complications Type of Wound Date of Service: 07/15/19 Chief Complaint: Nonhealing hidradenitis ulcer bilateral perianal areas and sacral area. History of Wound: Surgery 11/22/18 - 1. Surgical preparation bilateral perianal areas with excision hidradenitis (162.5 cm2). 2. Excision extensive, complicated pilonidal cyst abscess (75 cm2). Wound care - Continue dakin's solution daily. Operative culture - Staphylococcus epidermidis, Enterococcus gallinarum, and Anaerobic cocci. She was placed on Unasyn and has finished them. Prealbumin from 11/23/18 was 13.7. Encourage nutritional supplementation with protein to help the healing process. HgbA1c from 11/30/18 was 6.2. Today she denies fever. Her appetite is ok. Progress of Wound: Stable - Physical Exam Vital Signs Temp Pulse Resp BP 96.8 F L 91 18 129/58 H 07/15/19 11:38 07/15/19 11:38 07/15/19 11:38 07/15/19 11:38 General: Alert, Oriented x3, Cooperative HEENT: Atraumatic Oral: Moist Mucosa Lungs: Normal air movement Cardiovascular: Regular rate Abdomen: Soft Extremities: Capillary Refill Less than 3 Seconds Skin: Ulcer/ Wound - elisha anal ulcer Wound Measurements and Assessment WC - Nurse 1 - General Ulcer Measurement Start: 07/15/19 11:38 Freq: Status: Active Protocol: Activity Type Activity Date Activity User E-Sign Co-Sign Detail Recorded Client Recorded Date Recorded By Document 07/15/19 11:38 [facility] [id number] 07/15/19 11:44 [facility] 07/15/19 11:38 Wound Center Nurse 1 [Ulcer Assessment] #1 sacroiliac region -Combined with other wound No -Current Size (cm) - Length 2.5 -Current Size (cm) - Width 2.3 -Current Size (cm) - Depth 0.1 -Total Square Cm 5.75 -Photo Taken No -Epithelialization None Present -Tunneling No -Undermining/Tunneling No -Circular Undermining No -Exudate Amt Small -Exudate Type Serosanguineous -Wound Margin Distinct, Outline Attached -Granulation Amt Large (67-100%) -Granulation Quality Red -Slough/Fibrin No -Necrosis Amt None Present (0 %) -Texture (Elisha-wound Skin Appearance) Assessed, Scarring -Moisture (Elisha-wound Skin Appearance Assessed ) -Color (Elisha-wound Skin Appearance) Assessed -Temperature (Elisha-wound Skin No Abnormality Appearance) (Pt Warm) -Tenderness on Palpation (Elisha-wound No Skin Appearance) -Ulcer Cleansing Rinsed/ Irrigated with Saline -Foul Odor after Cleansing No -Anesthetic Used 5% Lidocaine Gel WC - Nurse 2 - General Ulcer CM Notes Start: 07/15/19 11:38 Freq: Status: Active Protocol: Activity Type Activity Date Activity User E-Sign Co-Sign Detail Recorded Client Recorded Date Recorded By Document 07/15/19 12:12 DL [id number] 07/15/19 12:13 DL 07/15/19 12:12 Wound Center Nurse 2 [Procedure/Treatment] -Time 12:12 -Correct Patient Yes -Correct Side, Site, Position Yes -Correct Procedure Yes -Procedure Performed Yes -Type of Procedure Debridement -Clinical Debridement Subcutaneous -Post Debridement Size (cm) - Length 1.2 -Post Debridement Size (cm) - Width 2 -Post Debridement Size (cm) - Depth 0.1 -Total Square Cm 2.4 -Wound/Ulcer Outcome Not Healed -Ulcer Cleansing Rinsed/ Irrigated with Saline -Foul Odor after Cleansing No -Bioengineered Tissue No -Bleeding Controlled with Pressure -Offloading No -Treatment Response Procedure Tolerated Well [See Physician Procedure note for Specifics] Pain Scale: 0-10 Numeric [Pain] -Is Patient Pain Free? Yes Musculoskeletal: No Tenderness to Palpation of Joints or Extremities Neurological: Neuro grossly intact Psych/Mental Status: Normal Affect, Appropriate Debridement Note Post-Debridement Measurements/Treatment - Nurse 2 - General Ulcer CM Notes Start: 07/15/19 11:38 Freq: Status: Active Protocol: Activity Type Activity Date Activity User E-Sign Co-Sign Detail Recorded Client Recorded Date Recorded By Document 07/15/19 12:12 DL [id number] 07/15/19 12:13 DL 07/15/19 12:12 Wound Center Nurse 2 #1 sacroiliac region -Time 12:12 -Correct Patient Yes -Correct Side, Site, Position Yes -Correct Procedure Yes -Procedure Performed Yes -Type of Procedure Debridement -Clinical Debridement Subcutaneous -Post Debridement Size (cm) - Length 1.2 -Post Debridement Size (cm) - Width 2 -Post Debridement Size (cm) - Depth 0.1 -Total Square Cm 2.4 -Wound/Ulcer Outcome Not Healed -Ulcer Cleansing Rinsed/ Irrigated with Saline -Foul Odor after Cleansing No -Bioengineered Tissue No -Bleeding Controlled with Pressure -Offloading No -Treatment Response Procedure Tolerated Well Pain Scale: 0-10 Numeric Is Patient Pain Free? Yes Wound debrided: elisha anal ulcer Laterality: Right Type of Debridement: Excisional debridement Anesthesia Used: 5% Lidocaine Gel Depth: Down to and including healthy tissue, in the subcutaneous layer Percentage of wound debrided: 100 Instrument Used: 5mm curette Tissue Removed: subcutaneous tissue and slough Severity: Limited To Skin Breakdown Amount of bleeding with debridement: Mild Bleeding Controlled with: Pressure, Compression and gauze Patient tolerated procedure well Assessment/Plan Assessment: 1. Hidradenitis bilateral perianal areas. 2. Extensive, complicated pilonidal cyst abscess. 3. Nonhealing hidradenitis ulcer bilateral perianal areas. 4. Nonhealing ulcer sacral area. 5. Former smoker. 6. s/p surgical preparation bilateral perianal areas with excision hidradenitis (162.5 cm2) and excision extensive, complicated pilonidal cyst abscess (75 cm2). 7. Diabetes mellitus. 8. Bilateral inguinal fungal rash, improved. Plan: The ulcer continues to heal slowly. Today there was hypergranulation tissue present. Wound care: Dakin's solution moistened gauze, topped with dry gauze. She has finished the Unasyn for Staphylococcus epidermidis, Enterocccus gallinarum, and Anaerobic cocci. Prealbumin from 11/23/18 was 13.7. Encourasge nutritional supplementation with protein to help the healing process. HgbA1c from 04/11/19 was 7.4. Wound culture from 05/27/19 grew Staphylococcus aureus and Corynebacterium striatum. She was placed on Levaquin which she is tolerating well. She would like to restart her suppressive therapy for her psoriasis because it is really starting to bother her. Discussed how it could slow down her healing process even more. Patient verbalizes understanding and will think about this. Follow up in one week. Code Visit 111xxx-113xx: [id number] Kacey subq tissue 20 sq cm/<
[2019-07-22 13:34] VITALS: BP 129/44; PULSE 85; RESP 18; TEMP 36.5; BMI 36.8
--- NOTE | 2019-07-22 18:00 | PCM.WC.PN ---
Type of Wound Date of Service: 07/22/19 Chief Complaint: Nonhealing hidradenitis ulcer bilateral perianal areas and sacral area. History of Wound: Surgery 11/22/18 - 1. Surgical preparation bilateral perianal areas with excision hidradenitis (162.5 cm2). 2. Excision extensive, complicated pilonidal cyst abscess (75 cm2). Wound care - Silver. Operative culture - Staphylococcus epidermidis, Enterococcus gallinarum, and Anaerobic cocci. She was placed on Unasyn and has finished them. Prealbumin from 11/23/18 was 13.7. Encourasge nutritional supplementation with protein to help the healing process. HgbA1c from 04/11/19 was 7.4. Today she denies fever. Her appetite is ok. Her bilateral inguinal rash has improved with the Nystatin Powder. Progress of Wound: Stable. - Physical Exam Vital Signs Temp Pulse Resp BP 97.7 F L 85 18 129/44 H 07/22/19 13:34 07/22/19 13:34 07/22/19 13:34 07/22/19 13:34 Wound Measurements and Assessment WC - Nurse 1 - General Ulcer Measurement Start: 07/15/19 11:38 Freq: Status: Active Protocol: Activity Type Activity Date Activity User E-Sign Co-Sign Detail Recorded Client Recorded Date Recorded By Document 07/22/19 13:34 DL [id number] 07/22/19 13:38 DL 07/22/19 13:34 Wound Center Nurse 1 [Ulcer Assessment] #1 sacroiliac region -Current Size (cm) - Length 2.6 -Current Size (cm) - Width 1.1 -Current Size (cm) - Depth 0.1 -Total Square Cm 2.86 -Photo Taken No -Exudate Amt Small -Exudate Type Serosanguineous -Wound Margin Distinct, Outline Attached -Granulation Amt Large (67-100%) -Granulation Quality Red -Necrosis Amt None Present (0 %) -Structure Exposed N/A -Texture (Hailee-wound Skin Appearance) Scarring -Moisture (Hailee-wound Skin Appearance Maceration ) -Color (Hailee-wound Skin Appearance) No Abnormality -Temperature (Hailee-wound Skin No Abnormality Appearance) (Pt Warm) -Tenderness on Palpation (Hailee-wound No Skin Appearance) -Ulcer Cleansing Rinsed/ Irrigated with Saline -Foul Odor after Cleansing No -Anesthetic Used 5% Lidocaine Gel - Nurse 2 - General Ulcer CM Notes Start: 07/15/19 11:38 Freq: Status: Active Protocol: Activity Type Activity Date Activity User E-Sign Co-Sign Detail Recorded Client Recorded Date Recorded By Document 07/22/19 13:51 [id number] 07/22/19 13:52 07/22/19 13:51 Wound Center Nurse 2 [Procedure/Treatment] -Time 13:51 -Correct Patient Yes -Correct Side, Site, Position Yes -Correct Procedure Yes -Procedure Performed Yes -Type of Procedure Debridement -Clinical Debridement Subcutaneous -Post Debridement Size (cm) - Length 2.6 -Post Debridement Size (cm) - Width 1.2 -Post Debridement Size (cm) - Depth 0.1 -Total Square Cm 3.12 -Wound/Ulcer Outcome Not Healed -Ulcer Cleansing Rinsed/ Irrigated with Saline -Foul Odor after Cleansing No -Bioengineered Tissue No -Bleeding Controlled with Pressure -Offloading No -Treatment Response Procedure Tolerated Well [See Physician Procedure note for Specifics] Pain Scale: 0-10 Numeric [Pain] -Is Patient Pain Free? Yes Debridement Note Post-Debridement Measurements/Treatment - Nurse 2 - General Ulcer CM Notes Start: 07/15/19 11:38 Freq: Status: Active Protocol: Activity Type Activity Date Activity User E-Sign Co-Sign Detail Recorded Client Recorded Date Recorded By Document 07/15/19 12:12 [id number] 07/15/19 12:13 Document 07/22/19 13:51 [id number] 07/22/19 13:52 07/15/19 07/22/19 12:12 13:51 Wound Center Nurse 2 #1 sacroiliac region -Time 12:12 13:51 -Correct Patient Yes Yes -Correct Side, Site, Position Yes Yes -Correct Procedure Yes Yes -Procedure Performed Yes Yes -Type of Procedure Debridement Debridement -Clinical Debridement Subcutaneous Subcutaneous -Post Debridement Size (cm) - Length 1.2 2.6 -Post Debridement Size (cm) - Width 2 1.2 -Post Debridement Size (cm) - Depth 0.1 0.1 -Total Square Cm 2.4 3.12 -Wound/Ulcer Outcome Not Healed Not Healed -Ulcer Cleansing Rinsed/ Rinsed/ Irrigated with Irrigated with Saline Saline -Foul Odor after Cleansing No No -Bioengineered Tissue No No -Bleeding Controlled with Pressure Pressure -Offloading No No -Treatment Response Procedure Procedure Tolerated Well Tolerated Well Pain Scale: 0-10 Numeric Is Patient Pain Free? Yes Yes Wound debrided: #1 Bilateral perianal area and sacral area. Laterality: Not Applicable Wound Grade/Stage: 2. Type of Debridement: Excisional debridement Anesthesia Used: 4% Lidocaine Solution Depth: Down to and including healthy tissue, in the subcutaneous layer Percentage of wound debrided: 100 Instrument Used: 3mm curette Tissue Removed: subcutaneous tissue. Severity: Fat Layer Exposed Amount of bleeding with debridement: Mild Bleeding Controlled with: Pressure Patient tolerated procedure well Assessment/Plan Assessment: 1. Hidradenitis bilateral perianal areas. 2. Extensive, complicated pilonidal cyst abscess. 3. Nonhealing hidradenitis ulcer bilateral perianal areas. 4. Nonhealing ulcer sacral area. 5. Former smoker. 6. s/p surgical preparation bilateral perianal areas with excision hidradenitis (162.5 cm2) and excision extensive, complicated pilonidal cyst abscess (75 cm2). 7. Diabetes mellitus. 8. Bilateral inguinal fungal rash, improved. Plan: The healing of the ulcer is slowing down. Continue Dakin's dressing changes daily. She has finished the Unasyn for Staphylococcus epidermidis, Enterocccus gallinarum, and Anaerobic cocci. She had a repeat culture on 05/27/19 which showed Staphylococcus aureus and Corynebacterium striatum. She was placed on Levaquin and has finished them. She has a bilateral inguinal rash, probably fungal in nature, that has improved with the Nystatin powder. Prealbumin from 11/23/18 was 13.7. Encourage nutritional supplementation with protein to help the healing process. HgbA1c from 04/11/19 was 7.4. Discussed with the patient about further operative debridement and skin grafting. She is interested but not right now. She will let us know when she wants to proceed. For elective skin grafting, the HgbA1c needs to be less than 8. Followup 2 weeks. Code Visit 111xxx-113xx: [id number] Kacey subq tissue 20 sq cm/< - ICD-10 - L98.492, L05.01, E11.9, L73.2, Z87.891
[2019-08-05 13:15] VITALS: BP 149/48; PULSE 93; RESP 18; TEMP 36.8; BMI 36.8
--- NOTE | 2019-08-05 16:18 | PN.PCM_ITS ---
(1) Ulcer of perianal area with fat layer exposed Status: Chronic Code(s): L98.492 - Non-pressure chronic ulcer of skin of other sites with fat layer exposed Comment: nonhealing hidradenitis ulcer bilateral perianal areas (2) Type 2 diabetes mellitus Status: Chronic Code(s): E11.9 - Type 2 diabetes mellitus without complications Type of Wound Date of Service: 08/05/19 Chief Complaint: Nonhealing hidradenitis ulcer bilateral perianal areas and sacral area. History of Wound: Surgery 11/22/18 - 1. Surgical preparation bilateral perianal areas with excision hidradenitis (162.5 cm2). 2. Excision extensive, complicated pilonidal cyst abscess (75 cm2). Wound care - Silver alternated with Dakin's solution. Operative culture - Staphylococcus epidermidis, Enterococcus gallinarum, and Anaerobic cocci. She was placed on Unasyn and has finished them. Prealbumin from 11/23/18 was 13.7. Encourasge nutritional supplementation with protein to help the healing process. HgbA1c from 04/11/19 was 7.4. Today she denies fever. Her appetite is ok. Her bilateral inguinal rash has improved with the Nystatin Powder. Progress of Wound: Stable. - Physical Exam Vital Signs Temp Pulse Resp BP 98.2 F 93 18 149/48 H 08/05/19 13:15 08/05/19 13:15 08/05/19 13:15 08/05/19 13:15 General: Alert, Oriented x3, Cooperative HEENT: Atraumatic Oral: Moist Mucosa Lungs: Normal air movement Cardiovascular: Regular rate Extremities: Capillary Refill Less than 3 Seconds Skin: Ulcer/ Wound - perianal ulcer Wound Measurements and Assessment WC - Nurse 1 - General Ulcer Measurement Start: 07/15/19 11:38 Freq: Status: Active Protocol: Activity Type Activity Date Activity User E-Sign Co-Sign Detail Recorded Client Recorded Date Recorded By Document 08/05/19 13:15 [facility] [id number] 08/05/19 13:22 [facility] 08/05/19 13:15 Wound Center Nurse 1 [Ulcer Assessment] #1 sacroiliac region -Combined with other wound No -Current Size (cm) - Length 1.7 -Current Size (cm) - Width 1.3 -Current Size (cm) - Depth 0.1 -Total Square Cm 2.21 -Photo Taken No -Epithelialization None Present -Tunneling No -Undermining/Tunneling No -Circular Undermining No -Exudate Amt Small -Exudate Type Serous -Wound Margin Distinct, Outline Attached -Granulation Amt Large (67-100%) -Granulation Quality Red -Slough/Fibrin No -Necrosis Amt None Present (0 %) -Texture (Hailee-wound Skin Appearance) Assessed, Scarring -Moisture (Hailee-wound Skin Appearance Assessed ) -Color (Hailee-wound Skin Appearance) Assessed -Temperature (Hailee-wound Skin No Abnormality Appearance) (Pt Warm) -Tenderness on Palpation (Hailee-wound No Skin Appearance) -Ulcer Cleansing Rinsed/ Irrigated with Saline -Foul Odor after Cleansing No -Anesthetic Used 5% Lidocaine Gel WC - Nurse 2 - General Ulcer CM Notes Start: 07/15/19 11:38 Freq: Status: Active Protocol: Activity Type Activity Date Activity User E-Sign Co-Sign Detail Recorded Client Recorded Date Recorded By Document 08/05/19 13:57 [id number] 08/05/19 13:59 08/05/19 13:57 Wound Center Nurse 2 [Procedure/Treatment] -Time 13:58 -Correct Patient Yes -Correct Side, Site, Position Yes -Correct Procedure Yes -Procedure Performed Yes -Type of Procedure Debridement -Clinical Debridement Subcutaneous -Post Debridement Size (cm) - Length 1.2 -Post Debridement Size (cm) - Width 1.8 -Post Debridement Size (cm) - Depth 0.1 -Total Square Cm 2.16 -Wound/Ulcer Outcome Not Healed -Ulcer Cleansing Rinsed/ Irrigated with Saline -Foul Odor after Cleansing No -Bioengineered Tissue No -Bleeding Controlled with Pressure -Offloading No -Treatment Response Procedure Tolerated Well [See Physician Procedure note for Specifics] Pain Scale: 0-10 Numeric [Pain] -Is Patient Pain Free? Yes Musculoskeletal: No Tenderness to Palpation of Joints or Extremities Neurological: Neuro grossly intact Psych/Mental Status: Normal Affect, Appropriate Debridement Note Post-Debridement Measurements/Treatment - Nurse 2 - General Ulcer CM Notes Start: 07/15/19 11:38 Freq: Status: Active Protocol: Activity Type Activity Date Activity User E-Sign Co-Sign Detail Recorded Client Recorded Date Recorded By Document 07/15/19 12:12 DL [id number] 07/15/19 12:13 Document 07/22/19 13:51 [id number] 07/22/19 13:52 Document 08/05/19 13:57 [id number] 08/05/19 13:59 07/15/19 07/22/19 08/05/19 12:12 13:51 13:57 Wound Center Nurse 2 #1 sacroiliac region -Time 12:12 13:51 13:58 -Correct Patient Yes Yes Yes -Correct Side, Site, Position Yes Yes Yes -Correct Procedure Yes Yes Yes -Procedure Performed Yes Yes Yes -Type of Procedure Debridement Debridement Debridement -Clinical Debridement Subcutaneous Subcutaneous Subcutaneous -Post Debridement Size (cm) - Length 1.2 2.6 1.2 -Post Debridement Size (cm) - Width 2 1.2 1.8 -Post Debridement Size (cm) - Depth 0.1 0.1 0.1 -Total Square Cm 2.4 3.12 2.16 -Wound/Ulcer Outcome Not Healed Not Healed Not Healed -Ulcer Cleansing Rinsed/ Rinsed/ Rinsed/ Irrigated with Irrigated with Irrigated with Saline Saline Saline -Foul Odor after Cleansing No No No -Bioengineered Tissue No No No -Bleeding Controlled with Pressure Pressure Pressure -Offloading No No No -Treatment Response Procedure Procedure Procedure Tolerated Well Tolerated Well Tolerated Well Pain Scale: 0-10 Numeric Is Patient Pain Free? Yes Yes Yes Wound debrided: perianal ulcer Laterality: Right Type of Debridement: Excisional debridement Anesthesia Used: 5% Lidocaine Gel Depth: Down to and including healthy tissue, in the subcutaneous layer Percentage of wound debrided: 100 Instrument Used: 3mm curette Tissue Removed: subcutaneous tissue and slough Severity: Limited To Skin Breakdown Amount of bleeding with debridement: Mild Bleeding Controlled with: Pressure Patient tolerated procedure well Assessment/Plan Assessment: 1. Hidradenitis bilateral perianal areas. 2. Extensive, complicated pilonidal cyst abscess. 3. Nonhealing hidradenitis ulcer bilateral perianal areas. 4. Nonhealing ulcer sacral area. 5. Former smoker. 6. s/p surgical preparation bilateral perianal areas with excision hidradenitis (162.5 cm2) and excision extensive, complicated pilonidal cyst abscess (75 cm2). 7. Diabetes mellitus. 8. Bilateral inguinal fungal rash, improved. Plan: The healing of the ulcer is slowing down. Wound care: Alternate Dakin's dressing changes with silver daily. She has finished the Unasyn for Staphylococcus epidermidis, Enterocccus gallinarum, and Anaerobic cocci. She had a repeat culture on 05/27/19 which showed Staphylococcus aureus and Corynebacterium striatum. She was placed on Levaquin and has finished them. She has a bilateral inguinal rash, probably fungal in nature, that has improved with the Nystatin powder. Prealbumin from 11/23/18 was 13.7. Encourage nutritional supplementation with protein to help the healing process. HgbA1c from 04/11/19 was 7.4. Discussed with the patient about further operative debridement and skin grafting. She is interested but not right now. She will let us know when she wants to proceed. For elective skin grafting, the HgbA1c needs to be less than 8. Followup 2 weeks. Code Visit 111xxx-113xx: [id number] Kacey subq tissue 20 sq cm/<
== END 2019-08-06 23:59 ==
LOC: WC 13:00
PROVIDERS: Family Provider Nurse Practitioner Family; PCP Nurse Practitioner Family; Referring Provider Surgery; Visit Provider Surgery
DX: L73.2 Hidradenitis suppurativa (principal); L98.492 Non-pressure chronic ulcer of skin of other sites with fat layer exposed; E11.9 Type 2 diabetes mellitus without complications; L05.01 Pilonidal cyst with abscess; Z87.891 Personal history of nicotine dependence; B35.6 Tinea cruris
CPT/HCPCS: 11042

== ENCOUNTER 2019-09-02 13:00 | Outpatient (RCR) | payer MEDICARE, OTHER, SELFPAY ==
[2019-08-07 00:33] VITALS: BP 149/48; PULSE 93; RESP 18; TEMP 36.8
[2019-08-19 13:15] VITALS: RESP 18; TEMP 36.9; BMI 36.8
--- NOTE | 2019-08-19 15:26 | PCM.WC.PN ---
(1) Ulcer of perianal area with fat layer exposed Status: Chronic Current Visit: Yes Code(s): L98.492 - Non-pressure chronic ulcer of skin of other sites with fat layer exposed Comment: nonhealing hidradenitis ulcer bilateral perianal areas (2) Type 2 diabetes mellitus Status: Chronic Current Visit: Yes Code(s): E11.9 - Type 2 diabetes mellitus without complications Type of Wound Date of Service: 08/19/19 Chief Complaint: Nonhealing hidradenitis ulcer bilateral perianal areas and sacral area. History of Wound: Surgery 11/22/18 - 1. Surgical preparation bilateral perianal areas with excision hidradenitis (162.5 cm2). 2. Excision extensive, complicated pilonidal cyst abscess (75 cm2). Wound care -Collagen hydrogel. Operative culture - Staphylococcus epidermidis, Enterococcus gallinarum, and Anaerobic cocci. She was placed on Unasyn and has finished them. Prealbumin from 11/23/18 was 13.7. Encourasge nutritional supplementation with protein to help the healing process. HgbA1c from 04/11/19 was 7.4. Today she denies fever. Her appetite is ok. Her bilateral inguinal rash has resolved. Progress of Wound: Improved - Physical Exam Vital Signs Temp Pulse Resp BP 98.4 F 93 18 149/48 H 08/19/19 13:15 08/07/19 00:33 08/19/19 13:15 08/07/19 00:33 General: Alert, Oriented x3, Cooperative HEENT: Atraumatic Oral: Moist Mucosa Lungs: Normal air movement Cardiovascular: Regular rate Abdomen: Soft Extremities: Capillary Refill Less than 3 Seconds Skin: Ulcer/ Wound - hailee anal ulcer on left Wound Measurements and Assessment WC - Nurse 1 - General Ulcer Measurement Start: 08/19/19 13:14 Freq: Status: Active Protocol: Activity Type Activity Date Activity User E-Sign Co-Sign Detail Recorded Client Recorded Date Recorded By Document 08/19/19 13:15 [facility] [id number] 08/19/19 13:23 [facility] 08/19/19 13:15 Wound Center Nurse 1 [Ulcer Assessment] #1 sacroiliac region -Combined with other wound No -Current Size (cm) - Length 0.6 -Current Size (cm) - Width 0.5 -Current Size (cm) - Depth 0.1 -Total Square Cm 0.30 -Photo Taken No -Epithelialization Small 1-33% -Tunneling No -Undermining/Tunneling No -Circular Undermining No -Exudate Amt Small -Exudate Type Serous -Wound Margin Distinct, Outline Attached -Granulation Amt Large (67-100%) -Granulation Quality Red -Slough/Fibrin No -Necrosis Amt None Present (0 %) -Texture (Hailee-wound Skin Appearance) Assessed, Scarring -Moisture (Hailee-wound Skin Appearance Assessed ) -Color (Hailee-wound Skin Appearance) Assessed -Temperature (Hailee-wound Skin No Abnormality Appearance) (Pt Warm) -Tenderness on Palpation (Hailee-wound No Skin Appearance) -Ulcer Cleansing Rinsed/ Irrigated with Saline -Foul Odor after Cleansing No -Anesthetic Used 5% Lidocaine Gel WC - Nurse 2 - General Ulcer CM Notes Start: 08/19/19 13:14 Freq: Status: Active Protocol: Activity Type Activity Date Activity User E-Sign Co-Sign Detail Recorded Client Recorded Date Recorded By Document 08/19/19 13:49 DL [id number] 08/19/19 13:51 08/19/19 13:49 Wound Center Nurse 2 [Procedure/Treatment] -Time 13:49 -Correct Patient Yes -Correct Side, Site, Position Yes -Correct Procedure Yes -Procedure Performed Yes -Type of Procedure Debridement -Clinical Debridement Subcutaneous -Post Debridement Size (cm) - Length 1.2 -Post Debridement Size (cm) - Width 0.8 -Post Debridement Size (cm) - Depth 0.2 -Total Square Cm 0.96 -Wound/Ulcer Outcome Not Healed -Ulcer Cleansing Rinsed/ Irrigated with Saline -Foul Odor after Cleansing No -Bioengineered Tissue No -Bleeding Controlled with Pressure -Offloading No -Treatment Response Procedure Tolerated Well [See Physician Procedure note for Specifics] Pain Scale: 0-10 Numeric [Pain] -Is Patient Pain Free? Yes Musculoskeletal: No Tenderness to Palpation of Joints or Extremities Neurological: Neuro grossly intact Psych/Mental Status: Normal Affect, Appropriate Debridement Note Post-Debridement Measurements/Treatment - Nurse 2 - General Ulcer CM Notes Start: 08/19/19 13:14 Freq: Status: Active Protocol: Activity Type Activity Date Activity User E-Sign Co-Sign Detail Recorded Client Recorded Date Recorded By Document 08/19/19 13:49 [id number] 08/19/19 13:51 JF 08/19/19 13:49 Wound Center Nurse 2 #1 sacroiliac region -Time 13:49 -Correct Patient Yes -Correct Side, Site, Position Yes -Correct Procedure Yes -Procedure Performed Yes -Type of Procedure Debridement -Clinical Debridement Subcutaneous -Post Debridement Size (cm) - Length 1.2 -Post Debridement Size (cm) - Width 0.8 -Post Debridement Size (cm) - Depth 0.2 -Total Square Cm 0.96 -Wound/Ulcer Outcome Not Healed -Ulcer Cleansing Rinsed/ Irrigated with Saline -Foul Odor after Cleansing No -Bioengineered Tissue No -Bleeding Controlled with Pressure -Offloading No -Treatment Response Procedure Tolerated Well Pain Scale: 0-10 Numeric Is Patient Pain Free? Yes Wound debrided: hailee anal ulcer on left Type of Debridement: Excisional debridement Anesthesia Used: 5% Lidocaine Gel Depth: Down to and including healthy tissue, in the subcutaneous layer Percentage of wound debrided: 100 Instrument Used: 3mm curette Tissue Removed: subcutaneous tissue and slough Severity: Limited To Skin Breakdown Amount of bleeding with debridement: Moderate Bleeding Controlled with: Pressure, Compression and gauze Patient tolerated procedure well Assessment/Plan Active Problems (Last Reviewed 04/17/19 @ 15:08 by Alejandrina Garcias MD) Ulcer of perianal area with fat layer exposed (Chronic) nonhealing hidradenitis ulcer bilateral perianal areas Type 2 diabetes mellitus (Chronic) Assessment: 1. Hidradenitis bilateral perianal areas. 2. Extensive, complicated pilonidal cyst abscess. 3. Nonhealing hidradenitis ulcer bilateral perianal areas. 4. Nonhealing ulcer sacral area. 5. Former smoker. 6. s/p surgical preparation bilateral perianal areas with excision hidradenitis (162.5 cm2) and excision extensive, complicated pilonidal cyst abscess (75 cm2). 7. Diabetes mellitus. 8. Bilateral inguinal fungal rash, improved. Plan: The healing of the ulcer is slowing down. Wound care: Collagen hydrogel. She has finished the Unasyn for Staphylococcus epidermidis, Enterocccus gallinarum, and Anaerobic cocci. She had a repeat culture on 05/27/19 which showed Staphylococcus aureus and Corynebacterium striatum. She was placed on Levaquin and has finished them. She has a bilateral inguinal rash, probably fungal in nature, that has improved with the Nystatin powder. Prealbumin from 11/23/18 was 13.7. Encourage nutritional supplementation with protein to help the healing process. HgbA1c from 04/11/19 was 7.4. Discussed with the patient about further operative debridement and skin grafting. She is interested but not right now. She will let us know when she wants to proceed. For elective skin grafting, the HgbA1c needs to be less than 8. Followup 2 weeks. Code Visit [id number]: [id number] Kacey subq tissue 20 sq cm/<
[2019-09-02 13:14] VITALS: BP 133/58; PULSE 103; RESP 16; TEMP 36.6; BMI 36.8
--- NOTE | 2019-09-02 14:51 | PCM.WC.PN ---
(1) Ulcer of perianal area with fat layer exposed Status: Chronic Current Visit: Yes Code(s): L98.492 - Non-pressure chronic ulcer of skin of other sites with fat layer exposed Comment: nonhealing hidradenitis ulcer bilateral perianal areas (2) Type 2 diabetes mellitus Status: Chronic Current Visit: Yes Code(s): E11.9 - Type 2 diabetes mellitus without complications Type of Wound Date of Service: 09/02/19 Chief Complaint: Nonhealing hidradenitis ulcer bilateral perianal areas and sacral area. History of Wound: Surgery 11/22/18 - 1. Surgical preparation bilateral perianal areas with excision hidradenitis (162.5 cm2). 2. Excision extensive, complicated pilonidal cyst abscess (75 cm2). Wound care -Collagen hydrogel. Operative culture - Staphylococcus epidermidis, Enterococcus gallinarum, and Anaerobic cocci. She was placed on Unasyn and has finished them. Prealbumin from 11/23/18 was 13.7. Encourasge nutritional supplementation with protein to help the healing process. HgbA1c from 04/11/19 was 7.4. Today she denies fever. Her appetite is ok. Her bilateral inguinal rash has resolved. Progress of Wound: Improved - Physical Exam Vital Signs Temp Pulse Resp BP 97.8 F 103 H 16 133/58 H 09/02/19 13:14 09/02/19 13:14 09/02/19 13:14 09/02/19 13:14 General: Alert, Oriented x3, Cooperative HEENT: Atraumatic Oral: Moist Mucosa Lungs: Normal air movement Cardiovascular: Regular rate Extremities: Capillary Refill Less than 3 Seconds Skin: Ulcer/ Wound - right elisha anal ulcer Wound Measurements and Assessment WC - Nurse 1 - General Ulcer Measurement Start: 08/19/19 13:14 Freq: Status: Active Protocol: Activity Type Activity Date Activity User E-Sign Co-Sign Detail Recorded Client Recorded Date Recorded By Document 09/02/19 13:[address] [facility] [id number] 09/02/19 13:[address] [facility] 09/02/19 13:14 Wound Center Nurse 1 [Ulcer Assessment] #1 sacroiliac region -Combined with other wound No -Current Size (cm) - Length 2.5 -Current Size (cm) - Width 1.4 -Current Size (cm) - Depth 0.1 -Total Square Cm 3.50 -Tunneling No -Undermining/Tunneling No -Circular Undermining No -Exudate Amt Small -Exudate Type Serosanguineous -Wound Margin Fibrotic Scar, Thickened Scar -Granulation Amt Medium (34-66%) -Granulation Quality Pale,Red -Slough/Fibrin Yes -Necrosis Amt Small (1-33%) -Necrotic Tissue Type Adherent Slough -Structure Exposed N/A -Texture (Elisha-wound Skin Appearance) Assessed -Moisture (Elisha-wound Skin Appearance Assessed ) -Color (Elisha-wound Skin Appearance) Assessed -Temperature (Elisha-wound Skin No Abnormality Appearance) (Pt Warm) -Tenderness on Palpation (Elisha-wound No Skin Appearance) -Ulcer Cleansing Wound Cleanser -Foul Odor after Cleansing No -Anesthetic Used 5% Lidocaine Gel - Nurse 2 - General Ulcer CM Notes Start: 08/19/19 13:14 Freq: Status: Active Protocol: Activity Type Activity Date Activity User E-Sign Co-Sign Detail Recorded Client Recorded Date Recorded By Document 09/02/19 13:33 [id number] 09/02/19 13:35 09/02/19 13:33 Wound Center Nurse 2 [Procedure/Treatment] -Time 13:34 -Correct Patient Yes -Correct Side, Site, Position Yes -Correct Procedure Yes -Procedure Performed Yes -Type of Procedure Debridement -Clinical Debridement Subcutaneous -Post Debridement Size (cm) - Length 0.5 -Post Debridement Size (cm) - Width 0.4 -Post Debridement Size (cm) - Depth 0.1 -Total Square Cm 0.20 -Wound/Ulcer Outcome Not Healed -Ulcer Cleansing Rinsed/ Irrigated with Saline -Foul Odor after Cleansing No -Bioengineered Tissue No -Bleeding Controlled with Pressure -Offloading No -Treatment Response Procedure Tolerated Well [See Physician Procedure note for Specifics] Pain Scale: 0-10 Numeric [Pain] -Is Patient Pain Free? Yes Musculoskeletal: No Muscle Wasting Neurological: Neuro grossly intact Psych/Mental Status: Normal Affect, Appropriate Debridement Note Post-Debridement Measurements/Treatment - Nurse 2 - General Ulcer CM Notes Start: 08/19/19 13:14 Freq: Status: Active Protocol: Activity Type Activity Date Activity User E-Sign Co-Sign Detail Recorded Client Recorded Date Recorded By Document 08/19/19 13:49 [id number] 08/19/19 13:51 Document 09/02/19 13:33 [id number] 09/02/19 13:35 08/19/19 09/02/19 13:49 13:33 Wound Center Nurse 2 #1 sacroiliac region -Time 13:49 13:34 -Correct Patient Yes Yes -Correct Side, Site, Position Yes Yes -Correct Procedure Yes Yes -Procedure Performed Yes Yes -Type of Procedure Debridement Debridement -Clinical Debridement Subcutaneous Subcutaneous -Post Debridement Size (cm) - Length 1.2 0.5 -Post Debridement Size (cm) - Width 0.8 0.4 -Post Debridement Size (cm) - Depth 0.2 0.1 -Total Square Cm 0.96 0.20 -Wound/Ulcer Outcome Not Healed Not Healed -Ulcer Cleansing Rinsed/ Rinsed/ Irrigated with Irrigated with Saline Saline -Foul Odor after Cleansing No No -Bioengineered Tissue No No -Bleeding Controlled with Pressure Pressure -Offloading No No -Treatment Response Procedure Procedure Tolerated Well Tolerated Well Pain Scale: 0-10 Numeric Is Patient Pain Free? Yes Yes Wound debrided: perianal ulcer Laterality: Right Type of Debridement: Excisional debridement Anesthesia Used: 5% Lidocaine Gel Depth: Down to and including healthy tissue, in the subcutaneous layer Percentage of wound debrided: 100 Instrument Used: 3mm curette Tissue Removed: subcutaneous tissue and slough Severity: Limited To Skin Breakdown Amount of bleeding with debridement: Mild Bleeding Controlled with: Pressure Patient tolerated procedure well Assessment/Plan Active Problems (Last Reviewed 04/17/19 @ 15:08 by Alejandrina Garcias MD) Ulcer of perianal area with fat layer exposed (Chronic) nonhealing hidradenitis ulcer bilateral perianal areas Type 2 diabetes mellitus (Chronic) Assessment: 1. Hidradenitis bilateral perianal areas. 2. Extensive, complicated pilonidal cyst abscess. 3. Nonhealing hidradenitis ulcer bilateral perianal areas. 4. Nonhealing ulcer sacral area. 5. Former smoker. 6. s/p surgical preparation bilateral perianal areas with excision hidradenitis (162.5 cm2) and excision extensive, complicated pilonidal cyst abscess (75 cm2). 7. Diabetes mellitus. 8. Bilateral inguinal fungal rash, improved. Plan: Wound care: Collagen hydrogel. She has finished the Unasyn for Staphylococcus epidermidis, Enterocccus gallinarum, and Anaerobic cocci. She had a repeat culture on 05/27/19 which showed Staphylococcus aureus and Corynebacterium striatum. She was placed on Levaquin and has finished them. She has a bilateral inguinal rash, probably fungal in nature, that has improved with the Nystatin powder. Prealbumin from 11/23/18 was 13.7. Encourage nutritional supplementation with protein to help the healing process. HgbA1c from 04/11/19 was 7.4. Discussed with the patient about further operative debridement and skin grafting. She is not interested in that right now. She will let us know if she wants to proceed. For elective skin grafting, the HgbA1c needs to be less than 8. Followup 2 weeks. Code Visit 111xxx-113xx: [id number] Kacey subq tissue 20 sq cm/<
== END 2019-09-06 23:59 ==
LOC: WC 13:00
PROVIDERS: Family Provider Nurse Practitioner Family; PCP Nurse Practitioner Family; Referring Provider Surgery; Visit Provider Surgery
DX: L73.2 Hidradenitis suppurativa (principal); E11.9 Type 2 diabetes mellitus without complications; L05.01 Pilonidal cyst with abscess; L98.491 Non-pressure chronic ulcer of skin of other sites limited to breakdown of skin; B35.6 Tinea cruris; Z87.891 Personal history of nicotine dependence
CPT/HCPCS: 11042

== ENCOUNTER 2019-09-16 08:31 | Outpatient (RCR) | payer MEDICARE, OTHER, SELFPAY ==
[2019-09-07 00:36] VITALS: BP 133/58; PULSE 103; RESP 16; TEMP 36.6
[2019-09-16 13:13] VITALS: BP 156/54; PULSE 91; RESP 18; TEMP 36.7; BMI 36.8
--- NOTE | 2019-09-16 16:22 | PCM.WC.PN ---
(1) Ulcer of perianal area with fat layer exposed Status: Chronic Code(s): L98.492 - Non-pressure chronic ulcer of skin of other sites with fat layer exposed Comment: nonhealing hidradenitis ulcer bilateral perianal areas (2) Type 2 diabetes mellitus Status: Chronic Code(s): E11.9 - Type 2 diabetes mellitus without complications Type of Wound Date of Service: 09/16/19 Chief Complaint: Nonhealing hidradenitis ulcer bilateral perianal areas and sacral area. History of Wound: Surgery 11/22/18 - 1. Surgical preparation bilateral perianal areas with excision hidradenitis (162.5 cm2). 2. Excision extensive, complicated pilonidal cyst abscess (75 cm2). Wound care -She is healed today Operative culture - Staphylococcus epidermidis, Enterococcus gallinarum, and Anaerobic cocci. She was placed on Unasyn and has finished them. Prealbumin from 11/23/18 was 13.7. Encourasge nutritional supplementation with protein to help the healing process. HgbA1c from 04/11/19 was 7.4. Today she denies fever. Her appetite is ok. Her bilateral inguinal rash has resolved. Progress of Wound: She is healed today. - Physical Exam Vital Signs Temp Pulse Resp BP 98.1 F 91 18 156/54 H 09/16/19 13:13 09/16/19 13:13 09/16/19 13:13 09/16/19 13:13 General: Alert, Oriented x3, Cooperative HEENT: Atraumatic Oral: Moist Mucosa Lungs: Normal air movement Cardiovascular: Regular rate Abdomen: Soft Extremities: No edema Skin: Ulcer/ Wound - elisha anal ulcer is healed today Wound Measurements and Assessment WC - Nurse 1 - General Ulcer Measurement Start: 09/16/19 13:13 Freq: Status: Active Protocol: Activity Type Activity Date Activity User E-Sign Co-Sign Detail Recorded Client Recorded Date Recorded By Document 09/16/19 13:13 MW [id number] 09/16/19 13:18 MW 09/16/19 13:13 Wound Center Nurse 1 [Ulcer Assessment] #1 sacroiliac region -Combined with other wound No -Current Size (cm) - Length 0.1 -Current Size (cm) - Width 0.1 -Current Size (cm) - Depth 0.1 -Total Square Cm 0.01 -Date of Last Picture (Recall this 09/16/19 field) -Photo Taken Yes -Epithelialization Large 67-100% -Tunneling No -Undermining/Tunneling No -Circular Undermining No -Exudate Amt None Present -Wound Margin Flat & Intact -Granulation Amt None Present (0 %) -Granulation Quality N/A -Slough/Fibrin No -Necrosis Amt None Present (0 %) -Structure Exposed N/A -Texture (Elisha-wound Skin Appearance) Assessed, Scarring -Moisture (Elisha-wound Skin Appearance No Abnormality, ) Assessed -Color (Elisha-wound Skin Appearance) No Abnormality, Assessed -Temperature (Elisha-wound Skin No Abnormality Appearance) (Pt Warm) -Tenderness on Palpation (Elisha-wound No Skin Appearance) -Ulcer Cleansing Rinsed/ Irrigated with Saline -Foul Odor after Cleansing No [Edema Assessment] -Lower Limb Edema Present No WC - Nurse 2 - General Ulcer CM Notes Start: 09/16/19 13:13 Freq: Status: Active Protocol: Activity Type Activity Date Activity User E-Sign Co-Sign Detail Recorded Client Recorded Date Recorded By Document 09/16/19 13:27 [id number] 09/16/19 13:28 09/16/19 13:27 Wound Center Nurse 2 [Procedure/Treatment] #1 sacroiliac region -Correct Patient No -Correct Side, Site, Position No -Correct Procedure No -Procedure Performed No -Post Debridement Size (cm) - Length 0 -Post Debridement Size (cm) - Width 0 -Post Debridement Size (cm) - Depth 0 -Total Square Cm 0 -Wound/Ulcer Outcome Healed- Epithelialized [See Physician Procedure note for Specifics] Pain Scale: 0-10 Numeric [Pain] -Is Patient Pain Free? Yes Musculoskeletal: No Tenderness to Palpation of Joints or Extremities Neurological: Neuro grossly intact Psych/Mental Status: Normal Affect, Appropriate Debridement Note Post-Debridement Measurements/Treatment WC - Nurse 2 - General Ulcer CM Notes Start: 09/16/19 13:13 Freq: Status: Active Protocol: Activity Type Activity Date Activity User E-Sign Co-Sign Detail Recorded Client Recorded Date Recorded By Document 09/16/19 13:27 [id number] [id number] 09/16/19 13:28 09/16/19 13:27 Wound Center Nurse 2 #1 sacroiliac region -Correct Patient No -Correct Side, Site, Position No -Correct Procedure No -Procedure Performed No -Post Debridement Size (cm) - Length 0 -Post Debridement Size (cm) - Width 0 -Post Debridement Size (cm) - Depth 0 -Total Square Cm 0 -Wound/Ulcer Outcome Healed- Epithelialized Pain Scale: 0-10 Numeric Is Patient Pain Free? Yes No debridement was completed today Assessment/Plan Assessment: 1. Hidradenitis bilateral perianal areas. 2. Extensive, complicated pilonidal cyst abscess. 3. Nonhealing hidradenitis ulcer bilateral perianal areas. 4. Nonhealing ulcer sacral area. 5. Former smoker. 6. s/p surgical preparation bilateral perianal areas with excision hidradenitis (162.5 cm2) and excision extensive, complicated pilonidal cyst abscess (75 cm2). 7. Diabetes mellitus. 8. Bilateral inguinal fungal rash, improved. Plan: She is healed today. Encouraged to wait to sit in a bath tub for 2 weeks until the fragile epithelial skin thickens, then she can sit in a tub. If her ulcer continues to remain healed, then after 6-12 months she can her colostomy reversed. Follow up as needed. Code Visit Office Visits / Consults: [id number] OV L3 Est
== END 2019-10-05 23:59 ==
LOC: WC 08:31
PROVIDERS: Family Provider Nurse Practitioner Family; PCP Nurse Practitioner Family; Referring Provider Surgery; Visit Provider Surgery
DX: Z09 Encounter for follow-up examination after completed treatment for conditions other than malignant neoplasm (principal); E11.9 Type 2 diabetes mellitus without complications; L73.2 Hidradenitis suppurativa
CPT/HCPCS: 99213; G0463

== ENCOUNTER 2019-12-23 10:48 | Outpatient (RCR) | payer MEDICARE, OTHER, SELFPAY ==
[2019-11-25 10:40] VITALS: BMI 36.8
[2019-12-23 11:21] VITALS: BP 159/51; PULSE 97; RESP 16; TEMP 37.1; BMI 32.5
--- NOTE | 2019-12-23 11:34 | WC ---
PT DID NOT BRING MED LIST. INSTRUCTED TO BRING TO NEXT VISIT.
--- NOTE | 2019-12-23 17:51 | PCM.WC.PN ---
Type of Wound Date of Service: 12/23/19 Chief Complaint: Nonhealing ulcer right posterior thigh and recurrent hidradenitis ulcer bilateral perianal areas and sacral area. History of Wound: Patient was discharged from the Wound Center in 09/26 after her hidradenitis ulcer bilateral perianal and sacral areas. She presents today because a recurrence of this hidradenitis ulcer as well as a new onset ulceration on her right posterior thigh. She denies fever. She denies trauma. Her initial surgery was on 11/22/18 where she underwent surgical preparation bilateral perianal areas with excision hidradenitis (162.5 cm2) and excision extensive, complicated pilonidal cyst abscess (75 cm2). Wound culture from that November surgery showed Staphylococcus epidermidis, Enterococcus gallinarum, and Anaerobic cocci. She was treated with Unasyn. Prealbumin from 11/23/18 was 13.7. Encourage nutritional supplementation with protein to help the healing process. HgbA1c from 04/11/19 was 7.4. Today she denies fever. Her appetite is ok. Her bilateral inguinal rash has resolved. Progress of Wound: Recurrent hidradenitis ulcer bilateral perianal and sacral areas and recent onset ulcer right posterior thigh. - Physical Exam Vital Signs Temp Pulse Resp BP 98.8 F 97 16 159/51 H 12/23/19 11:21 12/23/19 11:21 12/23/19 11:21 12/23/19 11:21 Wound Measurements and Assessment WC - Nurse 1 - General Ulcer Measurement Start: 12/23/19 11:21 Freq: Status: Active Protocol: Activity Type Activity Date Activity User E-Sign Co-Sign Detail Recorded Client Recorded Date Recorded By Document 12/23/19 11:21 [facility] [id number] 12/23/19 11:34 [facility] 12/23/19 11:21 Wound Center Nurse 1 [Ulcer Assessment] #3- right UPPER POST THIGH -Combined with other wound No -Current Size (cm) - Length 0.7 -Current Size (cm) - Width 1 -Current Size (cm) - Depth 0.2 -Total Square Cm 0.7 -Date of Last Picture (Recall this 12/23/19 field) -Photo Taken Yes -Epithelialization None Present -Tunneling No -Undermining/Tunneling No -Circular Undermining No -Exudate Amt None Present -Wound Margin Distinct, Outline Attached -Granulation Amt Small (1-33%) -Granulation Quality Triangle -Slough/Fibrin Yes -Necrosis Amt Large (67-100%) -Necrotic Tissue Type Adherent Slough -Texture (Hailee-wound Skin Appearance) Assessed, Scarring -Moisture (Hailee-wound Skin Appearance Assessed ) -Color (Hailee-wound Skin Appearance) Assessed, Erythema -Temperature (Hailee-wound Skin No Abnormality Appearance) (Pt Warm) -Tenderness on Palpation (Hailee-wound Yes Skin Appearance) -Ulcer Cleansing Rinsed/ Irrigated with Saline -Foul Odor after Cleansing No -Anesthetic Used 5% Lidocaine Gel #2- coccyx -Combined with other wound No -Current Size (cm) - Length 1.7 -Current Size (cm) - Width 0.6 -Current Size (cm) - Depth 0.9 -Total Square Cm 1.02 -Date of Last Picture (Recall this 12/23/19 field) -Photo Taken Yes -Epithelialization None Present -Undermining/Tunneling Yes -Undermining/Tunneling Starts (O' 12 clock) -Undermining/Tunneling Ends (O'clock) 12 -Maximum Distance (cm) 0.6 -Circular Undermining Yes -Exudate Amt Small -Exudate Type Serosanguineous -Wound Margin Distinct, Outline Attached -Granulation Amt Large (67-100%) -Granulation Quality Red -Slough/Fibrin Yes -Necrosis Amt Small (1-33%) -Necrotic Tissue Type Adherent Slough -Texture (Hailee-wound Skin Appearance) Assessed, Scarring -Moisture (Hailee-wound Skin Appearance Assessed ) -Color (Hailee-wound Skin Appearance) Assessed, Erythema -Temperature (Hailee-wound Skin No Abnormality Appearance) (Pt Warm) -Tenderness on Palpation (Hailee-wound Yes Skin Appearance) -Ulcer Cleansing Rinsed/ Irrigated with Saline -Foul Odor after Cleansing No -Anesthetic Used 5% Lidocaine Gel WC - Nurse 2 - General Ulcer CM Notes Start: 12/23/19 11:21 Freq: Status: Active Protocol: Activity Type Activity Date Activity User E-Sign Co-Sign Detail Recorded Client Recorded Date Recorded By Document 12/23/19 12:02 DL [id number] 12/23/19 12:03 DL 12/23/19 12:02 Wound Center Nurse 2 [Procedure/Treatment] #3- right UPPER POST THIGH -Time 12:02 -Correct Patient Yes -Correct Side, Site, Position Yes -Correct Procedure Yes -Procedure Performed Yes -Type of Procedure Debridement -Clinical Debridement Subcutaneous -Post Debridement Size (cm) - Length 0.4 -Post Debridement Size (cm) - Width 1.4 -Post Debridement Size (cm) - Depth 0.2 -Total Square Cm 0.56 -Wound/Ulcer Outcome Not Healed -Ulcer Cleansing Rinsed/ Irrigated with Saline -Foul Odor after Cleansing No -Bioengineered Tissue No -Bleeding Controlled with Pressure -Offloading No -Treatment Response Procedure Tolerated Well #2- coccyx -Time 12:02 -Correct Patient Yes -Correct Side, Site, Position Yes -Correct Procedure Yes -Procedure Performed Yes -Type of Procedure Debridement -Clinical Debridement Subcutaneous -Post Debridement Size (cm) - Length 2.0 -Post Debridement Size (cm) - Width 0.5 -Post Debridement Size (cm) - Depth 0.7 -Total Square Cm 1.00 -Wound/Ulcer Outcome Not Healed -Ulcer Cleansing Rinsed/ Irrigated with Saline -Foul Odor after Cleansing No -Bioengineered Tissue No -Bleeding Controlled with Pressure -Offloading No -Treatment Response Procedure Tolerated Well [See Physician Procedure note for Specifics] Pain Scale: 0-10 Numeric [Pain] -Is Patient Pain Free? Yes Debridement Note Post-Debridement Measurements/Treatment WC - Nurse 2 - General Ulcer CM Notes Start: 12/23/19 11:21 Freq: Status: Active Protocol: Activity Type Activity Date Activity User E-Sign Co-Sign Detail Recorded Client Recorded Date Recorded By Document 12/23/19 12:02 DL [id number] 12/23/19 12:03 DL 12/23/19 12:02 Wound Center Nurse 2 #3- right UPPER POST THIGH -Time 12:02 -Correct Patient Yes -Correct Side, Site, Position Yes -Correct Procedure Yes -Procedure Performed Yes -Type of Procedure Debridement -Clinical Debridement Subcutaneous -Post Debridement Size (cm) - Length 0.4 -Post Debridement Size (cm) - Width 1.4 -Post Debridement Size (cm) - Depth 0.2 -Total Square Cm 0.56 -Wound/Ulcer Outcome Not Healed -Ulcer Cleansing Rinsed/ Irrigated with Saline -Foul Odor after Cleansing No -Bioengineered Tissue No -Bleeding Controlled with Pressure -Offloading No -Treatment Response Procedure Tolerated Well #2- coccyx -Time 12:02 -Correct Patient Yes -Correct Side, Site, Position Yes -Correct Procedure Yes -Procedure Performed Yes -Type of Procedure Debridement -Clinical Debridement Subcutaneous -Post Debridement Size (cm) - Length 2.0 -Post Debridement Size (cm) - Width 0.5 -Post Debridement Size (cm) - Depth 0.7 -Total Square Cm 1.00 -Wound/Ulcer Outcome Not Healed -Ulcer Cleansing Rinsed/ Irrigated with Saline -Foul Odor after Cleansing No -Bioengineered Tissue No -Bleeding Controlled with Pressure -Offloading No -Treatment Response Procedure Tolerated Well Pain Scale: 0-10 Numeric Is Patient Pain Free? Yes Wound debrided: #2 Bilateral perianal and sacral area. Laterality: Not Applicable Wound Grade/Stage: 2. Type of Debridement: Excisional debridement Anesthesia Used: 4% Lidocaine Solution Depth: Down to and including healthy tissue, in the subcutaneous layer Percentage of wound debrided: 100 Instrument Used: 3mm curette Tissue Removed: subcutaneous tissue. Severity: Fat Layer Exposed Amount of bleeding with debridement: Mild Bleeding Controlled with: Pressure Patient tolerated procedure well - A wound culture was sent today. - Additional Wound Wound debrided: #3 Right posterior thigh. Laterality: Right Wound Grade/Stage: 2. Type of Debridement: Excisional debridement Anesthesia Used: 4% Lidocaine Solution Depth: Down to and including healthy tissue, in the subcutaneous layer Percentage of wound debrided: 100 Instrument Used: 3mm curette Tissue Removed: subcutaneous tissue. Severity: Fat Layer Exposed Amount of bleeding with debridement: Mild Bleeding Controlled with: Pressure Patient tolerated procedure: Patient tolerated procedure well Assessment/Plan Assessment: 1. Nonhealing recurrent hidradenitis ulcer bilateral perianal and sacral area. 2. Nonhealing ulcer right posterior thigh. 3. Former smoker. 4. Diabetes mellitus. 5. Bilateral inguinal fungal rash, improved. Plan: She has developed a recurrent hidradenitis ulcer bilateral perianal and sacral area and returns today for evaluation. It was also noted there was a new onset ulceration right posterior thigh. A wound culture was obtained today. A positive culture will necessitate antibiotic therapy. Will start wound care with Collagen Hydrogel daily. Discussed with the patient that she will need operative debridement and skin grafting to the recurrent hidradenitis ulcer. Her last HgbA1c was 7.4 in 04/25. Will repeat that. It needs to be less than 8 before proceeding with the skin graft. Her last Prealbumin was 13.7 in 11/23. Encourage nutritional supplementation with protein to help the healing proces. Patient was informed of the risks and complications of the procedure including alternatives to surgery. These were discussed with her personally. She voices understanding and wishes to proceed. Followup 2 weeks. We discussed the current risks associated with COVID-19. While it is understood that there is a community spread of COVID-19, the risk of julián COVID-19 while at [facility] ([facility]) is very low; however, the risk cannot be completely mitigated because of the community spread of the disease. We discussed in detail the risk of exposure to and/or potential harm posed by the COVID-19 virus with having a surgery/procedure at this time versus the risk of delaying the surgery/procedure. It is not possible to know either the risk of delaying the surgery or procedure or chance of getting an infection with perfect accuracy, but a joint decision was made to proceed at this time with the scheduled surgery/procedure as indicated on the consent form. Patient was notified that we will need to comply with any screening or testing [facility] wishes to perform or that surgery may be delayed for any positive results. At the present time there is no testing for the surgeons. The hospital is working on a policy for that to have the surgeon and surgical staff tested. So she has the option to wait until the surgeon and surgical staff are tested or she can proceed with the surgery at this time before the surgeon and surgical staff are tested. As long as the pain can be temporarily controlled, the surgery can be delayed until surgeon and surgical staff testing are done. She thought about it and wishes to proceed at this time.
--- NOTE | 2020-01-01 11:30 | WC ---
TELEPHONE CALL FROM [facility] [employer]. SHE REVIEWED [facility] WOUND CX'S. CALLED IN RX'S FOR AUGMENTIN AND PROBIOTIC.
== END 2020-01-05 23:59 ==
LOC: WC 10:48
PROVIDERS: PCP Student in an Organized Health Care Education/Training Program; Referring Provider Surgery; Visit Provider Surgery
DX: L73.2 Hidradenitis suppurativa (principal); L98.492 Non-pressure chronic ulcer of skin of other sites with fat layer exposed; L97.112 Non-pressure chronic ulcer of right thigh with fat layer exposed; E11.9 Type 2 diabetes mellitus without complications; B35.6 Tinea cruris; Z79.82 Long term (current) use of aspirin; Z79.4 Long term (current) use of insulin; Z79.899 Other long term (current) drug therapy; Z87.891 Personal history of nicotine dependence
CPT/HCPCS: 11042; 87070; 87075; 87077; 87186; 87205; 99213; G0463

== ENCOUNTER 2020-01-31 05:48 | Day surgery (SDC) | payer MEDICARE, OTHER, SELFPAY ==
--- NOTE | 2020-01-09 00:29 | HP.PCM_ITS ---
History and Physical Date of Admission: 01/09/20 HISTORY OF PRESENT ILLNESS 74 year old woman presents with a recurrence of her hidradenitis ulcer in the bilateral perianal area. She denies fever. She denies trauma. Her ulcer had healed in 09/26. Her initial surgery was on 11/22/18 where she underwent surgical preparation bilateral perianal areas with excision hidradenitis (162.5 cm2) and excision extensive, complicated pilonidal cyst abscess (75 cm2). Wound culture from that November surgery showed Staphylococcus epidermidis, Enterococcus gallinarum, and Anaerobic cocci. She was treated with Unasyn. Prealbumin from 11/23/18 was 13.7. Encourage nutritional supplementation with protein to help the healing process. HgbA1c from 04/11/19 was 7.4. Today she denies fever. Her appetite is ok. Her bilateral inguinal rash has resolved. She had a recent wound culture on 12/23/19 which showed Streptococcus anginosus and Anaerobic cocci. She was placed on Augmentin. PAST MEDICAL HISTORY Hemorrhoids Acid reflux Anxiety Depression Rheumatoid arthritis Back problem Diabetes Thyroid disease Anemia Asthma Carpal tunnel syndrome Cataracts, bilateral Chronic pneumonia Glaucoma Hearing problem High cholesterol High triglycerides Neuropathy Osteoarthritis UTI (urinary tract infection) COPD (chronic obstructive pulmonary disease) PAST SURGICAL HISTORY eye surgery hysterectomy carpal tunnel repair repair of left hip joint back surgery Surgical preparation bilateral perianal areas with excision hidradenitis (162.5 cm2) and excision extensive, complicated pilonidal cyst abscess (75 cm2) - 11/22/18 ALLERGIES adhesive tape azithromycin [From Zithromax] cephalexin [From Keflex] MEDICATIONS aspirin atorvastatin bimatoprost 0.01 % eye drops citalopram furosemide insulin human U-100 NPH-regulr 70-30 mix10/25/18] levalbutero levothyroxine losartan 50 mg tablet 50 mg PO DAILY 10/25/18 [History Confirmed 10/25/18] metformin polyethylene glycol 3350 17 gram oral powder packet potassium chloride pumpkin seed extract-soy germ ropinirole Tylenol Dulcolax Wellbutrin Xalatan Metformin Eucerin Juice Protonix Rifampin Senokot Augmentin FAMILY HISTORY Mother - Lung cancer, Anxiety, Arthritis, Depression (emotion), Diabetes Sister - CVA (cerebral vascular accident), Anxiety, Asthma, Depression (emotion), Heart disease Aunt - Arthritis, Depression (emotion), Diabetes Daughter - Cancer Grandmother - Diabetes Grandfather - Heart disease, Psychiatric care, CVA (cerebral vascular accident) Father - COPD (chronic obstructive pulmonary disease) SOCIAL HISTORY Smoking Status: Former smoker alcohol intake: current alcohol intake frequency: holidays/special occasions only substance use type: does not use REVIEW OF SYSTEMS General - Denies fever, fatigue, and weight loss. Eyes - Denies cataracts and glaucoma. ENT - Denies nasal congestion and sore throat. Endocrine - Denies excessive thirst and urination. Has diabetes mellitus. Skin - Denies skin cancer. Has flare up of hidradenitis bilateral perianal areas. Musculoskeletal - Denies joint pain, joint stiffness, weakness of muscles and joints, back pain. Has arthritis. Neuro - Denies headaches. Cardiovascular - Denies chest pain, fatigue, and shortness of breath with exertion. Psych - Denies anxiety and depression. Respiratory - Denies chronic cough and shortness of breath. Patient is a former smoker. Gastrointestinal - Has nausea, vomiting, diarrhea, and constipation. Hematologic - Denies abnormal bruising and bleeding. Genitourinary - Denies hematuria and urinary frequency. PHYSICAL EXAMINATION General - Alert and Oriented HEENT - PERRL. EOMI. Throat is clear. No suspicious lesions noted. Neck - Supple and nontender. No cervical adenopathy. No suspicious lesions noted. Lungs - Clear to auscultation. Heart - Regular rate and rhythm. Abdomen - Soft and nondistended. Has small area of early onset hidradenitis right inguinal area. Mild induration. Nontender. Asymptomatic at this time. Had recent left inguinal hidradenitis surgery that is healed at present. Extremities - FROM. No axillary adenopathy. Radial pulses are palpable. Has bilateral axillary hidradenitis that shows some induration. Nontender. Asymptomatic at this time. Rectal - Has recurrent hidradenitis ulcer bilateral perianal areas. Measures 2 x 0.5 x 0.7 cm. Close to the anal opening. No purulent drainage. Some induration noted. Mild tenderness to palpation. Neuro - CN II-XII grossly intact. Psych - Normal mood and affect. ASSESSMENT 1. Nonhealing recurrent Hidradenitis ulcer bilateral perianal areas. 2. Hidradenitis. 3. Diabetes mellitus. 4. Former smoker. PLAN Recommend excision of her hidradenitis bilateral perianal areas. Will send tissue to Pathology for analysis to rule out carcinoma. Will also send tissue to Microbiology for culture. A positive culture will necessitate antibiotic therapy. Reconstruction may be with skin grafting. Because she has diabetes, if a skin graft is decided upon, she would need a HgbA1c checked, and it needs to be less than 8. Surgery would be under general anesthesia with a surgical observation overnight stay in the hospital. Her latest HgbA1c from last April was 7.4. Anticipate increased metabolic demands from the infection and from the wounds after surgery. Will check a Prealbumin and encourage nutritional supplementation with protein to help the healing process. Continue Augmentin from recent culture that showed Streptococcus anginosus, and Anaerobic cocci. Patient was informed of the risks and complications of the procedure including alternatives to surgery. These were discussed with the patient personally. Patient voices understanding and wishes to proceed. After healing has occurred, she will return to see her Orthopedic Surgeon to discuss her right shoulder surgery. Procedure Criteria Procedure Type: Essential Procedure Essential: Yes Criteria Statement: On 10/22/2019 the [facility] ([facility]) Public Order signed by [facility] Director Aye Schmid M.D., regarding the Management of Non-Essential Surgeries and Procedures for the purpose of preserving Personal Protective Equipment (PPE) and critical hospital capacity and resources within [place] went into effect as of 10/23/2019 at 5:00PM. According to the [facility] Public Order: This action will remain in full force and effect until the State of Emergency declared by the Governor no longer exists or the Director of the [facility] rescinds or modifies this Order. This [facility] order stated all non-essential or elective surgeries and procedures that utilize PPE should be delayed unless there is undue risk to the current or future health of a patient. After reviewing the aforementioned [facility] Public Order and the patient's clinical case, I have determined that the scheduled procedure meets the criteria to go forward. Risk to Patient if Procedure Delayed: Risk of rapidly worsening to severe symptoms if delayed
--- NOTE | 2020-01-30 22:13 | PCM.HP.BLA ---
History and Physical Date of Admission: 01/31/20 History and Physical Date of Admission: 01/09/20 HISTORY OF PRESENT ILLNESS 74 year old woman presents with a recurrence of her hidradenitis ulcer in the bilateral perianal area. She denies fever. She denies trauma. Her ulcer had healed in 09/26. Her initial surgery was on 11/22/18 where she underwent surgical preparation bilateral perianal areas with excision hidradenitis (162.5 cm2) and excision extensive, complicated pilonidal cyst abscess (75 cm2). Wound culture from that November surgery showed Staphylococcus epidermidis, Enterococcus gallinarum, and Anaerobic cocci. She was treated with Unasyn. Prealbumin from 11/23/18 was 13.7. Encourage nutritional supplementation with protein to help the healing process. HgbA1c from 04/11/19 was 7.4. Today she denies fever. Her appetite is ok. Her bilateral inguinal rash has resolved. She had a recent wound culture on 12/23/19 which showed Streptococcus anginosus and Anaerobic cocci. She was placed on Augmentin. PAST MEDICAL HISTORY Hemorrhoids Acid reflux Anxiety Depression Rheumatoid arthritis Back problem Diabetes Thyroid disease Anemia Asthma Carpal tunnel syndrome Cataracts, bilateral Chronic pneumonia Glaucoma Hearing problem High cholesterol High triglycerides Neuropathy Osteoarthritis UTI (urinary tract infection) COPD (chronic obstructive pulmonary disease) PAST SURGICAL HISTORY eye surgery hysterectomy carpal tunnel repair repair of left hip joint back surgery Surgical preparation bilateral perianal areas with excision hidradenitis (162.5 cm2) and excision extensive, complicated pilonidal cyst abscess (75 cm2) - 11/22/18 ALLERGIES adhesive tape azithromycin [From Zithromax] cephalexin [From Keflex] MEDICATIONS aspirin atorvastatin bimatoprost 0.01 % eye drops citalopram furosemide insulin human U-100 NPH-regulr 70-30 mix10/25/18] levalbutero levothyroxine losartan 50 mg tablet 50 mg PO DAILY 10/25/18 [History Confirmed 10/25/18] metformin polyethylene glycol 3350 17 gram oral powder packet potassium chloride pumpkin seed extract-soy germ ropinirole Tylenol Dulcolax Wellbutrin Xalatan Metformin Eucerin Juice Protonix Rifampin Senokot Augmentin FAMILY HISTORY Mother - Lung cancer, Anxiety, Arthritis, Depression (emotion), Diabetes Sister - CVA (cerebral vascular accident), Anxiety, Asthma, Depression (emotion), Heart disease Aunt - Arthritis, Depression (emotion), Diabetes Daughter - Cancer Grandmother - Diabetes Grandfather - Heart disease, Psychiatric care, CVA (cerebral vascular accident) Father - COPD (chronic obstructive pulmonary disease) SOCIAL HISTORY Smoking Status: Former smoker alcohol intake: current alcohol intake frequency: holidays/special occasions only substance use type: does not use REVIEW OF SYSTEMS General - Denies fever, fatigue, and weight loss. Eyes - Denies cataracts and glaucoma. ENT - Denies nasal congestion and sore throat. Endocrine - Denies excessive thirst and urination. Has diabetes mellitus. Skin - Denies skin cancer. Has flare up of hidradenitis bilateral perianal areas. Musculoskeletal - Denies joint pain, joint stiffness, weakness of muscles and joints, back pain. Has arthritis. Neuro - Denies headaches. Cardiovascular - Denies chest pain, fatigue, and shortness of breath with exertion. Psych - Denies anxiety and depression. Respiratory - Denies chronic cough and shortness of breath. Patient is a former smoker. Gastrointestinal - Has nausea, vomiting, diarrhea, and constipation. Hematologic - Denies abnormal bruising and bleeding. Genitourinary - Denies hematuria and urinary frequency. PHYSICAL EXAMINATION General - Alert and Oriented HEENT - PERRL. EOMI. Throat is clear. No suspicious lesions noted. Neck - Supple and nontender. No cervical adenopathy. No suspicious lesions noted. Lungs - Clear to auscultation. Heart - Regular rate and rhythm. Abdomen - Soft and nondistended. Has small area of early onset hidradenitis right inguinal area. Mild induration. Nontender. Asymptomatic at this time. Had recent left inguinal hidradenitis surgery that is healed at present. Extremities - FROM. No axillary adenopathy. Radial pulses are palpable. Has bilateral axillary hidradenitis that shows some induration. Nontender. Asymptomatic at this time. Rectal - Has recurrent hidradenitis ulcer bilateral perianal areas. Measures 2 x 0.5 x 0.7 cm. Close to the anal opening. No purulent drainage. Some induration noted. Mild tenderness to palpation. Neuro - CN II-XII grossly intact. Psych - Normal mood and affect. ASSESSMENT 1. Nonhealing recurrent Hidradenitis ulcer bilateral perianal areas. 2. Hidradenitis. 3. Diabetes mellitus. 4. Former smoker. PLAN Recommend excision of her hidradenitis bilateral perianal areas. Will send tissue to Pathology for analysis to rule out carcinoma. Will also send tissue to Microbiology for culture. A positive culture will necessitate antibiotic therapy. Reconstruction may be with skin grafting. Because she has diabetes, if a skin graft is decided upon, she would need a HgbA1c checked, and it needs to be less than 8. Surgery would be under general anesthesia with a surgical observation overnight stay in the hospital. Her latest HgbA1c from last April was 7.4. Anticipate increased metabolic demands from the infection and from the wounds after surgery. Will check a Prealbumin and encourage nutritional supplementation with protein to help the healing process. Continue Augmentin from recent culture that showed Streptococcus anginosus, and Anaerobic cocci. Patient was informed of the risks and complications of the procedure including alternatives to surgery. These were discussed with the patient personally. Patient voices understanding and wishes to proceed. After healing has occurred, she will return to see her Orthopedic Surgeon to discuss her right shoulder surgery. Procedure Criteria Procedure Type: Essential Procedure Essential: Yes Criteria Statement: On 10/22/2019 the [place] Department of [facility] ([facility]) Public Order signed by [facility] Director Aye Schmid M.D., regarding the Management of Non-Essential Surgeries and Procedures for the purpose of preserving Personal Protective Equipment (PPE) and critical hospital capacity and resources within [place] went into effect as of 10/23/2019 at 5:00PM. According to the [facility] Public Order: This action will remain in full force and effect until the State of Emergency declared by the Governor no longer exists or the Director of the [facility] rescinds or modifies this Order. This [facility] order stated all non-essential or elective surgeries and procedures that utilize PPE should be delayed unless there is undue risk to the current or future health of a patient. After reviewing the aforementioned [facility] Public Order and the patient's clinical case, I have determined that the scheduled procedure meets the criteria to go forward. Risk to Patient if Procedure Delayed: Risk of rapidly worsening to severe symptoms if delayed
[2020-01-31] VITALS (7 sets, daily range): BP systolic 110–141; BP diastolic 37–49; PULSE 60–82; RESP 16–18; TEMP 36.1–36.6; O2SAT 92–96; BMI 34.7
[2020-01-31] MEDS: Lactated Ringers 1,000 ML 100 ML IV ×2 (06:47→08:30)
[2020-01-31 06:56] LABS: Bedside Glucose 73 mg/dL (70-110)
--- NOTE | 2020-01-31 07:30 | HID_PTH ---
PATIENT: CHRISS VERA LOC: [facility] [place] U#:[id number] AGE/SX: 74/F ROOM: RE01/31/[address]: Dr. Dustin Eaton MD : [id number] BED: DIS: 01/31/2020 SPEC #: [id number] RECD: 01/31/20 10:31 STATUS: TUAN SABRINA #: [id number] DOUGLAS: 01/31/20 07:[address]: Dustin Eaton DEPT: SURGICAL PATHOLOGY RECD BY: Noel Kothari ENTERED: 01/31/20 10:58 SP TYPE: Hidradenit OTHR DR: Dr. Joe Travis DO Tissues: Perianal tissue Procedures: Surgery Specimen Level III HEADER OPERATION: Surgical preparation perianal area and sacral area, excision PRE-OP DIAGNOSIS: Nonhealing recurrent hidradenitis ulcer bilateral perianal areas TISSUE SUBMITTED: Soft tissue perianal hidradenitis ulcer MICROSCOPIC DIAGNOSIS Soft tissue perianal hidradenitis ulcer: A piece of skin with underlying tissue including skeletal muscle tissue with focal ulceration, acute and chronic inflammation and granulation tissue reaction RENUKA:del 02/03/20 MICROSCOPIC DESCRIPTION Slides are reviewed. GROSS DESCRIPTION Received in fixative is one container labeled with the patient's name and designated soft tissue perianal hidradenitis ulcer. The specimen consists of a piece of skin with underlying tissue measuring 2.8 x 1 x 0.7 cm. The skin surface shows an area of ulceration. The specimen is sectioned and submitted entirely in two cassettes. / RENUKA:del 01/31/20 TC:2 CPT: 13563
[2020-01-31] MEDS: Mupirocin Ointment 22gm Tube 1 APPLIC (09:05)
--- NOTE | 2020-01-31 09:21 | PCM.OPRPT ---
Report of Operation Date of Procedure: 01/31/20 Pre-Operative Diagnosis: 1. Nonhealing recurrent hidradenitis ulcer bilateral perianal area. 2. Hidradenitis. 3. Diabetes mellitus. 4. Former smoker. Post-Operative Diagnosis: Same. Surgery/Procedure Performed:: Surgical preparation bilateral perianal area with excisional debridement nonhealing recurrent hidradenitis ulcer with FTSG reconstruction from left lower back/superior gluteal area (6.25 cm2) and placement AmnioFill placental connective tissue powder (250 mg). Description of Surgical Findings:: 74 year old woman presents with a recurrence of her hidradenitis ulcer in the bilateral perianal area. She denies fever. She denies trauma. Her ulcer had healed in 09/26. Her initial surgery was on 11/22/18 where she underwent surgical preparation bilateral perianal areas with excision hidradenitis (162.5 cm2) and excision extensive, complicated pilonidal cyst abscess (75 cm2). Wound culture from that November surgery showed Staphylococcus epidermidis, Enterococcus gallinarum, and Anaerobic cocci. She was treated with Unasyn. Prealbumin from 11/23/18 was 13.7. Encourage nutritional supplementation with protein to help the healing process. HgbA1c from 04/11/19 was 7.4. Today she denies fever. Her appetite is ok. Her bilateral inguinal rash has resolved. She had a recent wound culture on 12/23/19 which showed Streptococcus anginosus and Anaerobic cocci. She was placed on Augmentin. Patient was informed of the risks and complications of the procedure including alternatives to surgery. These were discussed with the patient personally. Patient voices understanding and wishes to proceed. Size of skin graft bilateral perianal area - 2.5 x 2.5 cm. I used AmnioFill Placental Connective Tissue Powder, 250 mg. Catalog Number - [id number]. Lot Number - [id number]. Expiration - April 07, 2024. power digger operator: Annabelle Brunson. Type of Anesthesia:: General Specimen's removed: Nonhealing recurrent hidradenitis ulcer bilateral perianal area to Pathology and Microbiology. Drains: None. Estimated Blood Loss (mL): 25 ml. Description of Procedure: Patient was taken to OR in supine position and was placed under general anesthesia. She was placed in the prone position. The perianal, gluteal and lower back areas were prepped and draped in the usual fashion. SCD's were placed for DVT prophylaxis. Perioperative antibiotics were given intravenously. Using xylocaine with epinephrine, the nonhealing recurrent hidradenitis ulcer bilateral perianal area and an elliptical area left lower back/superior gluteal area were infiltrated. After waiting 5 minutes for the anesthetic to take effect, I made a horizontal elliptical incision in the left lower back/superior gluteal area down into the subcutaneous tissue. The subcutaneous tissue was removed from the undersurface of the dermis thus fashioning a full thickness skin graft. The skin graft was placed in saline. Some additional subcutaneous tissue was excised to aid in wound closure. The wound was irrigated with saline. Hemostasis was obtained with electrocautery. The donor incision was then closed in a multiple layered fashion with 2-0 Vicryl figure of eight interrupted sutures for the underlying Robert's fascia. The deep dermis and subcutaneous tissue was approximated with 2-0 Vicryl interrupted sutures. The skin was approximated with 3-0 V lock unidirectional barbed running subcuticular suture. This was followed with Histoacryl skin tissue adhesive. This was followed by Kerlix gauze. I then excised the nonhealing recurrent hidradenitis ulcer bilateral perianal area into the subcutaneous tissue. Some of the tissue was sent to Pathology for analysis to rule out carcinoma and some of the tissue was sent to Microbiology for culture. A positive culture will necessitate antibiotic therapy. The size of the ulcer to be skin grafted was 2.5 x 2.5 or 6.25 cm2. The ulcer was irrigated with saline. Hemostasis was obtained with electrocautery. I placed the full thickness skin graft on the ulcer for closure. Before applying sutures, I placed AmnioFill placental connective tissue powder into the base of the ulcer to aid in the healing process. I then secured the skin graft to the edges of the ulcer with 3-0 Chromic simple interrupted sutures. I also used 3-0 Chromic sutures for central quilting stabilization. Antibiotic ointment was applied to the skin graft followed by Xeroform gauze and cotton balls soaked in saline and secured to the skin with 3-0 Nylon tie over stent suture dressing. Kerlix gauze was applied over the stent suture dressing. Patient tolerated the procedure well and was sent to PACU in satisfactory condition. Patient will be sent home on antibiotics and pain medication. Patient will followup at the Wound Center on Monday for takedown of the skin graft dressing and for a wound check. Also for discussion of the pathology report and the microbiology report. A positive culture will necessitate antibiotic therapy. Grafts/Implants Used: AmnioFill Placental Connective Tissue Powder - Complications None. - Admit VTE Documentation VTE Present on Admission: No VTE Mechan Device Prophylaxis: SCD's VTE Pharm Prophylaxis ordered?: No Charges CPT - 38239 ICD-10 - L98.492, L73.2, E11.9, Z87.891 08723 L98.492, L73.2, E11.9, Z87.891
--- NOTE | 2020-01-31 09:48 | PCM.DC ---
You will use the following diet at home:: Calorie/Carbohydrate Controlled (specify 1200, 1400, etc), Other - encourage nutritional supplementation with protein to help the healing process. Discharge Activity: May not drive while taking narcotic pain medications., May Not Shower - until the skin graft dressing is removed. May shower in (days): 4 - after the skin graft dressing removed at the wound center. May resume sexual activity in: No Restrictions Weight Bearing Status: Weight bearing as tolerated Call your doctor if your incision/area has: Continuous Slow Oozing, Sudden Increased Bleeding, Increased Pain/ Swelling, Increased Redness, Foul Smelling Discharge, Swelling at the incision site Call your doctor if you observe: Fever of 101 or Higher, Coldness, Increased Pain, Shortness of breath, Chest pain, Calf discomfort, Uncontrolled pain Change Dressing in (Days):: 3 - will change skin graft dressing at wound center. Remove Dressing in (days):: 2 - may remove the left lower back dressing. Cleanse incision/area with: - - may get the skin graft wet in the shower after the skin graft dressing is removed at the wound center. Allergies/Adverse Reactions: Allergies adhesive tape Allergy (Unknown, Verified 01/31/20 06:32) Other Severe itching azithromycin [From Zithromax] Allergy (Unknown, Verified 01/31/20 06:32) Shortness of breath Patient stated she also breaks out in a rash cephalexin [From Keflex] Allergy (Unknown, Verified 01/31/20 06:32) Shortness of breath Patient stated she also breaks out in a rash Medications to take at Discharge atorvastatin 80 mg tablet 80 mg PO DAILY 10/25/18 bimatoprost 0.01 % eye drops 1 drp OPHTHALMIC QPM 10/25/18 citalopram 20 mg tablet 20 mg PO DAILY 10/25/18 furosemide 40 mg tablet 40 mg PO DAILY 10/25/18 metformin 500 mg tablet 500 mg PO BID 10/25/18 polyethylene glycol 3350 17 gram oral powder packet 17 g PO DAILY PRN 10/25/18 potassium chloride 20 mEq oral packet 20 meq PO DAILY 10/25/18 pumpkin seed extract-soy germ 300 mg capsule 1 cap PO PRN PRN cap 10/25/18 ropinirole 0.5 mg tablet 0.5 mg PO QHS 10/25/18 Latanoprost 0.005% [Xalatan Opthalmic] 1 drp OPHTHALMIC (EYE) HS 12/03/18 Levothyroxine [Synthroid] 175 mcg PO MOTUWETHFRSA 12/03/18 Nystatin Powder [Mycostatin Powder] 1 applic TOPICAL BID 12/03/18 Bisacodyl [Dulcolax] 10 mg PO DAILY PRN tab 01/18/19 Mineral Oil/Petrolatum,White [Eucerin] 1 applic TOPICAL QHS jar 01/18/19 Nutritional Supplement [Juice - ORANGE FLAVOR] 1 packet PO BIDCM #60 packet 01/18/19 Pantoprazole Sodium [Protonix] 40 mg PO DAILY #30 tab 01/18/19 Senna [Senokot] 2 tab PO BID tab 01/18/19 buPROPion SR [Wellbutrin SR (150mg tablets)] 150 mg PO BID #60 tablet.sa 01/18/19 hydrOXYzine pamoate capsule [Vistaril pamoate capsule] 50 mg PO 4X/DAY PRN PRN #120 cap 01/18/19 Rifampin [Rifadin] 300 mg PO BID #14 cap 01/25/19 Insulin NPH/Reg 70/30 [Novolin 70/30] 50 units SUBCUT BIDAC 01/03/20 Amox/Clavulanate Tablet [Augmentin Tablet] 875 mg PO Q12H #28 tab 01/31/20 Lactobacillus Acidophilus/Fos [Acidophilus Probiotic Tablet] 1 ea PO BID #30 tab 01/31/20 Oxycodone HCl/Acetaminophen [Percocet 5/325] 1 tab PO Q4H PRN PRN 7 Days #40 tab 01/31/20 The following prescriptions were given: Lactobacillus Acidophilus/Fos [Acidophilus Probiotic Tablet] 1 ea PO BID #30 tab Transmission Status: Received by [facility] Mccarthy Amox/Clavulanate Tablet [Augmentin Tablet] 875 mg PO Q12H #28 tab Transmission Status: Received by [facility] Mccarthy Oxycodone HCl/Acetaminophen [Percocet 5/325] 1 tab PO Q4H PRN PRN 7 Days #40 tab PRN Reason: Pain Score 4-5/10 Transmission Status: Received by [facility] Mccarthy Orders to be completed after discharge: CORONAVIRUS 19, GINNY SCREEN Time Frame: 01/31/20, Facility: [facility], Location: Laboratory Primary Care Physician: Joe Travis DO [Primary Care Provider] - Test Results: Test results from this visit will be discussed in further detail at your follow-up appointment, if applicable. Please Follow Up With: Dustin Eaton MD When: monday02/03/20 at [facility]. call [phone] for appt time. Proposed Discharge Date: 01/31/20
[2020-01-31 10:06] LABS: Bedside Glucose 87 mg/dL (70-110)
== END 2020-01-31 11:30 | disposition home or self-care (01) ==
LOC: SDC 05:49 → AC 05:50
PROVIDERS: Anesthesiology; PCP Student in an Organized Health Care Education/Training Program; Referring Provider Surgery; Visit Provider Surgery
PROC: (CPT 11471; principal; 2020-01-31 07:15)
DX: L73.2 Hidradenitis suppurativa (principal); E11.40 Type 2 diabetes mellitus with diabetic neuropathy, unspecified; E78.00 Pure hypercholesterolemia, unspecified; J44.9 Chronic obstructive pulmonary disease, unspecified; K21.9 Gastro-esophageal reflux disease without esophagitis; M06.9 Rheumatoid arthritis, unspecified; F32.9 Major depressive disorder, single episode, unspecified; F41.9 Anxiety disorder, unspecified; G25.81 Restless legs syndrome; H40.9 Unspecified glaucoma; M19.90 Unspecified osteoarthritis, unspecified site; Z79.4 Long term (current) use of insulin; Z79.82 Long term (current) use of aspirin; Z79.899 Other long term (current) drug therapy; Z87.891 Personal history of nicotine dependence; E07.9 Disorder of thyroid, unspecified
CPT/HCPCS: 00300; 11471; 15240; 82962; 87070; 87075; 87102; 87205; 87206; 87635; 88304; 94799; G2023; J7120; J0295; J2405; U0003

== ENCOUNTER 2020-02-03 15:16 | Outpatient (RCR) | payer MEDICARE, OTHER, SELFPAY ==
[2020-01-06 00:34] VITALS: BP 159/51; PULSE 97; RESP 16; TEMP 37.1
[2020-01-31 06:33] VITALS: BMI 34.7
[2020-02-03 14:38] VITALS: BP 121/40; PULSE 76; RESP 22; TEMP 36.6; BMI 32.5
--- NOTE | 2020-02-03 16:10 | PN.PCM_ITS ---
(1) Ulcer of perianal area with fat layer exposed Status: Chronic Current Visit: Yes Code(s): L98.492 - Non-pressure chronic ulcer of skin of other sites with fat layer exposed Comment: nonhealing hidradenitis ulcer bilateral perianal areas (2) Hidradenitis suppurativa of anus Status: Chronic Current Visit: Yes Code(s): L73.2 - Hidradenitis suppurativa (3) Type 2 diabetes mellitus Status: Chronic Current Visit: Yes Code(s): E11.9 - Type 2 diabetes mellitus without complications Type of Wound Date of Service: 02/03/20 Chief Complaint: Nonhealing ulcer right posterior thigh and recurrent hidradenitis ulcer bilateral perianal areas and sacral area. History of Wound: Most recent surgery on 01/31/20 for Surgical preparation bilateral perianal area with excisional debridement nonhealing recurrent hidradenitis ulcer with FTSG reconstruction from left lower back/superior gluteal area (6.25 cm2) and placement AmnioFill placental connective tissue powder (250 mg). Wound care: Removed pressure dressing. Skin graft is adherent but there is no vascular ingrowth at this early stage. Will continue to monitor closely. Donor site incision is dry and intact on the left lower ba ck/upper gluteal area. Sutures are intact. Right upper posterior thigh ulcer stable, continue Collagen hydrogel daily. Patient was discharged from the Wound Center in 09/26 after her hidradenitis ulcer bilateral perianal and sacral areas. She presented because a recurrence of this hidradenitis ulcer as well as a new onset ulceration on her right posterior thigh. She denies fever. She denies tr auma. Her initial surgery was on 11/22/18 where she underwent surgical preparation bilateral perianal areas with excision hidradenitis (162.5 cm2) and excision extensive, complicated pilonidal cyst abscess (75 cm2). Wound culture from that November surgery showed Staphylococcus epidermidis, Enterococcus gallinarum, and Anaerobic cocci. She was treated with Unasyn. Prealbumin from 11/23/18 was 13.7. Encourage nutritional supplementation with protein to help the healing process. HgbA1c from 04/11/19 was 7.4. Today she denies fever. Her appetite is ok. Her bilateral inguinal rash has resolved. Progress of Wound: Surgery on 01/31/20 for Surgical preparation bilateral perianal area with excisional debridement nonhealing recurrent hidradenitis ulcer with FTSG reconstruction from left lower back/superior gluteal area (6.25 cm2) and placement AmnioFill placental connective tissue powder (250 mg). - Physical Exam Vital Signs Temp Pulse Resp BP 97.8 F 76 22 H 121/40 H 02/03/20 14:38 02/03/20 14:38 02/03/20 14:38 02/03/20 14:38 General: Alert, Oriented x3, Cooperative HEENT: Atraumatic Oral: Moist Mucosa Lungs: Normal air movement Cardiovascular: Regular rate Abdomen: Soft Extremities: Capillary Refill Less than 3 Seconds Skin: Ulcer/ Wound - Bilateral perianal skin graft pressure dressing removed. Skin graft is adherent but it is too early for vascularization. Left lower back/upper gluteal donor site incision dry and intact. Right upper posterior thigh ulcer is stable. Wound Measurements and Assessment WC - Nurse 1 - General Ulcer Measurement Start: 02/03/20 14:38 Freq: Status: Active Protocol: Activity Type Activity Date Activity User E-Sign Co-Sign Detail Recorded Client Recorded Date Recorded By Document 02/03/20 14:38 DL [id number] 02/03/20 14:58 DL 02/03/20 14:38 Wound Center Nurse 1 [Ulcer Assessment] #3- right UPPER POST THIGH -Current Size (cm) - Length 0 -Current Size (cm) - Width 0 -Current Size (cm) - Depth 0 -Total Square Cm 0 -Photo Taken Yes -Exudate Amt None Present -Wound Margin Fibrotic Scar, Thickened Scar -Granulation Amt Large (67-100%) -Granulation Quality Sherrard -Necrosis Amt None Present (0 %) -Structure Exposed N/A -Texture (Hailee-wound Skin Appearance) Scarring -Moisture (Hailee-wound Skin Appearance Dry/Scaly ) -Color (Hailee-wound Skin Appearance) No Abnormality -Temperature (Hailee-wound Skin No Abnormality Appearance) (Pt Warm) -Tenderness on Palpation (Hailee-wound No Skin Appearance) -Ulcer Cleansing Wound Cleanser -Foul Odor after Cleansing No #2- coccyx/ Graft,post op -Current Size (cm) - Length 0.1 -Current Size (cm) - Width 0.1 -Current Size (cm) - Depth 0.1 -Total Square Cm 0.01 -Photo Taken Yes -Exudate Amt None Present -Wound Margin Distinct, Outline Attached -Structure Exposed N/A -Texture (Hailee-wound Skin Appearance) No Abnormality -Moisture (Hailee-wound Skin Appearance No Abnormality ) -Color (Hailee-wound Skin Appearance) No Abnormality -Temperature (Hailee-wound Skin No Abnormality Appearance) (Pt Warm) -Tenderness on Palpation (Hailee-wound No Skin Appearance) -Ulcer Cleansing Wound Cleanser -Foul Odor after Cleansing No WC - Nurse 2 - General Ulcer CM Notes Start: 02/03/20 14:38 Freq: Status: Active Protocol: Activity Type Activity Date Activity User E-Sign Co-Sign Detail Recorded Client Recorded Date Recorded By Document 02/03/20 15:17 [id number] 02/03/20 15:18 02/03/20 15:17 Wound Center Nurse 2 [Procedure/Treatment] #3- right UPPER POST THIGH -Correct Patient No #2- coccyx/ Graft,post op -Time 15:18 -Correct Patient No -Correct Side, Site, Position No -Correct Procedure No -Procedure Performed No -Post Debridement Size (cm) - Length 0.1 -Post Debridement Size (cm) - Width 0.1 -Post Debridement Size (cm) - Depth 0.1 -Total Square Cm 0.01 -Wound/Ulcer Outcome Not Healed -Ulcer Cleansing Rinsed/ Irrigated with Saline -Foul Odor after Cleansing No -Bioengineered Tissue No -Bleeding Controlled with Pressure -Offloading No -Treatment Response Procedure Tolerated Well [See Physician Procedure note for Specifics] Pain Scale: 0-10 Numeric [Pain] -Is Patient Pain Free? Yes Musculoskeletal: No Tenderness to Palpation of Joints or Extremities Neurological: Neuro grossly intact Psych/Mental Status: Normal Affect, Appropriate Debridement Note Post-Debridement Measurements/Treatment WC - Nurse 2 - General Ulcer CM Notes Start: 02/03/20 14:38 Freq: Status: Active Protocol: Activity Type Activity Date Activity User E-Sign Co-Sign Detail Recorded Client Recorded Date Recorded By Document 02/03/20 15:17 [id number] 02/03/20 15:18 02/03/20 15:17 Wound Center Nurse 2 #3- right UPPER POST THIGH -Correct Patient No #2- coccyx/ Graft,post op -Time 15:18 -Correct Patient No -Correct Side, Site, Position No -Correct Procedure No -Procedure Performed No -Post Debridement Size (cm) - Length 0.1 -Post Debridement Size (cm) - Width 0.1 -Post Debridement Size (cm) - Depth 0.1 -Total Square Cm 0.01 -Wound/Ulcer Outcome Not Healed -Ulcer Cleansing Rinsed/ Irrigated with Saline -Foul Odor after Cleansing No -Bioengineered Tissue No -Bleeding Controlled with Pressure -Offloading No -Treatment Response Procedure Tolerated Well Pain Scale: 0-10 Numeric Is Patient Pain Free? Yes No debridement was completed today Assessment/Plan Active Problems (Last Reviewed 11/25/19 @ 11:[address] Alejandrina Garcias MD) Hidradenitis suppurativa of anus (Chronic) Ulcer of perianal area with fat layer exposed (Chronic) nonhealing hidradenitis ulcer bilateral perianal areas Type 2 diabetes mellitus (Chronic) Assessment: 1. Nonhealing recurrent hidradenitis ulcer bilateral perianal and sacral area. 2. Nonhealing ulcer right posterior thigh. 3. Former smoker. 4. Diabetes mellitus. 5. Bilateral inguinal fungal rash, improved. Plan: Surgery 01/31/20- Surgical preparation bilateral perianal area with excisional debridement nonhealing recurrent hidradenitis ulcer with FTSG reconstruction from left lower back/superior gluteal area (6.25 cm2) and placement AmnioFill placental connective tissue powder (250 mg). Wound care: Removed pressure dressing. Skin graft is adherent but there is no vascular ingrowth at this early stage. Will continue to monitor closely. Place antibiotic ointment daily on the area and cover with gauze dressing. Donor site incision is dry and intact on the left lower back/upper gluteal area. Sutures are intact. Right upper posterior thigh ulcer stable, continue Collagen hydrogel daily. Follow up in one week. A wound culture was obtained 12/23/19 which was positive for Strep anginosus and Corynebacterium striatum. She was treated with Augmentin and probiotic. Her last HgbA1c was 7.4 in 04/25. Will repeat that. It needs to be less than 8 before proceeding with the skin graft. Her last Prealbumin was 13.7 in 11/23. Encourage nutritional supplementation with protein to help the healing proces. [id number]: [id number] Global Visit
== END 2020-02-04 23:59 ==
LOC: WC 15:16
PROVIDERS: PCP Student in an Organized Health Care Education/Training Program; Referring Provider Surgery; Visit Provider Surgery
DX: L98.492 Non-pressure chronic ulcer of skin of other sites with fat layer exposed (principal); L73.2 Hidradenitis suppurativa; B35.6 Tinea cruris; E11.9 Type 2 diabetes mellitus without complications; Z87.891 Personal history of nicotine dependence
CPT/HCPCS: 99213; G0463

== ENCOUNTER → 2020-02-26 07:58 | Outpatient (CLI) | payer MEDICARE, OTHER, SELFPAY ==
[2020-02-10 13:13] VITALS: BMI 34.7
[2020-02-24 13:09] VITALS: BMI 34.7
--- NOTE | 2020-02-26 08:00 | CT_ITS ---
STUDY: CT CHEST WITH CONTRAST REASON FOR EXAM: Female, 74 years old. ABN CXR. Pt has history of diabetes. Prior surgery on buttocks for nonhealing wound during which patient flatlined-residual tremors RADIATION DOSAGE (If Supplied By Facility): CTDIvol = ( 16.50 ) mGy, DLP = ( 670.83 ) mGycm TECHNIQUE: Transaxial imaging was performed following intravenous administration of Isovue 300 100ml. Multiplanar coronal and sagittal images were reformatted. Individualized dose optimization techniques were used for this CT. COMPARISON: Previous plain films FINDINGS: Lung windows show the lungs to be normally expanded. There is a noncalcified 4 mm nodule in the right lower lobe on axial image 46, a 4.8 mm pleural-based nodule in the right middle lobe on axial image 57. There is no organized infiltrate or suspicious groundglass opacifications. Soft tissue windows show normal-appearing thyroid gland. No suspicious axillary or mediastinal adenopathy. There are calcified coronary vessels. No pleural or pericardial effusions. Normal hilar regions. Normal enhanced pulmonary arteries. Peripheral calcifications in the thoracic aorta without aneurysm. There are multi-level degenerative changes of the thoracic spine. Limited cuts to the upper abdomen do not show any suspicious abnormality CT/Chest WITH Contrast IMPRESSION: Chronic interstitial changes in both lung streeter without organized infiltrate, or effusion. There is a 4 mm noncalcified nodule in the superior segment of the right lower lobe on axial image 46, and a pleural-based 5 mm nodule in the right middle lobe on axial image 57. Six-month follow-up study recommended to assure stability. No pleural or pericardial effusions Calcified coronary vessels Degenerative bony changes Electronically Signed: Javi Kuhn MD at 8:35 EDT , Service support ,
[2020-02-26 08:11] LABS: CREATININE FINGERSTICK 0.8 mg/dL (0.55-1.02)
== END ==
PROVIDERS: PCP Student in an Organized Health Care Education/Training Program; Referring Provider Surgery; Visit Provider Surgery
DX: R91.8 Other nonspecific abnormal finding of lung field (principal)
CPT/HCPCS: 71260; Q9967

== ENCOUNTER 2020-03-02 14:00 | Outpatient (RCR) | payer MEDICARE, OTHER, SELFPAY ==
[2020-02-05 00:31] VITALS: BP 121/40; PULSE 76; RESP 22; TEMP 36.6; BMI 34.7
[2020-02-10 13:13] VITALS: BP 115/49; PULSE 78; RESP 20; TEMP 36.7; BMI 34.7
--- NOTE | 2020-02-10 13:19 | WC ---
Sutures left hip skin graft donor site intact. No redness or drainage.
--- NOTE | 2020-02-10 14:50 | PN.PCM_ITS ---
(1) Ulcer of perianal area with fat layer exposed Status: Chronic Current Visit: Yes Code(s): L98.492 - Non-pressure chronic ulcer of skin of other sites with fat layer exposed Comment: nonhealing hidradenitis ulcer bilateral perianal areas (2) Hidradenitis suppurativa of anus Status: Chronic Current Visit: Yes Code(s): L73.2 - Hidradenitis suppurativa (3) Type 2 diabetes mellitus Status: Chronic Current Visit: Yes Code(s): E11.9 - Type 2 diabetes mellitus without complications Type of Wound Date of Service: 02/10/20 Chief Complaint: Nonhealing ulcer right posterior thigh and recurrent hidradenitis ulcer bilateral perianal areas and sacral area. History of Wound: Most recent surgery on 01/31/20 for Surgical preparation bilateral perianal area with excisional debridement nonhealing recurrent hidradenitis ulcer with FTSG reconstruction from left lower back/superior gluteal area (6.25 cm2) and placement AmnioFill placental connective tissue powder (250 mg). Today there is compromise of the skin graft. There is approx. 95% compromise of the graft. There are areas where the sutures have from the edge. There is not good vascular ingrowth. Patient would benefit from HBO therapy to help salvage her graft. Wound care: Dry gauze daily and PRN to the ulcer. If it gets too dry may apply antibiotic ointment to the ulcer only, not around the periwound where it is red. May apply moisture barrier to the periwound such as A&D ointment or Calmaceptine cream (samples given). Donor site incision is dry and intact on the left lower back/upper gluteal area. Sutu res removed. Right upper posterior thigh ulcer stable, continue Collagen hydrogel daily. Patient was discharged from the Wound Center in 09/26 after her hidradenitis ulcer bilateral perianal and sacral areas. She presented because a recurrence of this hidradenitis ulcer as well as a new onset ulceration on her right posterior thigh. She denies fever. She denies trauma. Her initial surgery was on 11/22/18 where she underwent surgical preparation bilateral perianal areas with excision hidradenitis (162.5 cm2) and excision extensive, complicated pilonidal cyst abscess (75 cm2). Wound culture from that November surgery showed Staphylococcus epidermidis, Enterococcus gallinarum, and Anaerobic cocci. She was treated with Unasyn. Prealbumin from 11/23/18 was 13.7. Encourage nutritional supplementation with protein to help the healing process. HgbA1c from 04/11/19 was 7.4. Today she denies fever. Her appetite is ok. Her bilateral inguinal rash has resolved. Progress of Wound: Surgery on 01/31/20 for Surgical preparation bilateral perianal area with excisional debridement nonhealing recurrent hidradenitis ulcer with FTSG reconstruction from left lower back/superior gluteal area (6.25 cm2) and placement AmnioFill placental connective tissue powder (250 mg). - Physical Exam Vital Signs Temp Pulse Resp BP 98.0 F 78 20 H 115/49 L 02/10/20 13:13 02/10/20 13:13 02/10/20 13:13 02/10/20 13:13 General: Alert, Oriented x3, Cooperative HEENT: Atraumatic Oral: Moist Mucosa Lungs: Normal air movement Cardiovascular: Regular rate Extremities: Capillary Refill Less than 3 Seconds Skin: Ulcer/ Wound - Perianal ulcer with skin graft that is showing 95% compromise. Sutures have pulled away from some of the edges. Periwound is err ythematous., Incision - Left upper buttock/lower flank donor site incision is dry and intact and healing well. Removed sutures without difficulty. Wound Measurements and Assessment WC - Nurse 1 - General Ulcer Measurement Start: 02/10/20 13:13 Freq: Status: Active Protocol: Activity Type Activity Date Activity User E-Sign Co-Sign Detail Recorded Client Recorded Date Recorded By Document 02/10/20 13:13 MW [id number] 02/10/20 13:17 MW 02/10/20 13:13 Wound Center Nurse 1 [Ulcer Assessment] #2- coccyx/ Graft,post op -Combined with other wound No -Current Size (cm) - Length 5.0 -Current Size (cm) - Width 2.0 -Current Size (cm) - Depth 3.0 -Total Square Cm 10.00 -Photo Taken No -Epithelialization None Present -Tunneling No -Undermining/Tunneling No -Circular Undermining No -Exudate Amt Medium -Exudate Type Serosanguineous -Wound Margin Thickened & Rolled Under -Granulation Amt Medium (34-66%) -Granulation Quality Red -Slough/Fibrin Yes -Necrosis Amt Medium (34-66%) -Necrotic Tissue Type Adherent Slough -Structure Exposed N/A -Texture (Hailee-wound Skin Appearance) Assessed, Scarring -Moisture (Hailee-wound Skin Appearance No Abnormality, ) Assessed -Color (Hailee-wound Skin Appearance) Assessed, Erythema -Temperature (Hailee-wound Skin No Abnormality Appearance) (Pt Warm) -Tenderness on Palpation (Hailee-wound No Skin Appearance) -Ulcer Cleansing Rinsed/ Irrigated with Saline -Foul Odor after Cleansing No -Anesthetic Used 4% Lidocaine Solution [Edema Assessment] -Lower Limb Edema Present No Musculoskeletal: No Tenderness to Palpation of Joints or Extremities Neurological: Neuro grossly intact Psych/Mental Status: Normal Affect, Appropriate Debridement Note No debridement was completed today Assessment/Plan Active Problems (Last Reviewed 11/25/19 @ 11:[address] Alejandrina Garcias MD) Hidradenitis suppurativa of anus (Chronic) Ulcer of perianal area with fat layer exposed (Chronic) nonhealing hidradenitis ulcer bilateral perianal areas Type 2 diabetes mellitus (Chronic) Assessment: 1. Nonhealing recurrent hidradenitis ulcer bilateral perianal and sacral area. 2. Nonhealing ulcer right posterior thigh. 3. Former smoker. 4. Diabetes mellitus. 5. Bilateral inguinal fungal rash, improved. Plan: Surgery 01/31/20- Surgical preparation bilateral perianal area with excisional debridement nonhealing recurrent hidradenitis ulcer with FTSG reconstruction from left lower back/superior gluteal area (6.25 cm2) and placement AmnioFill placental connective tissue powder (250 mg). Today there is compromise of the skin graft. There is approx. 95% compromise of the graft. There are areas where the sutures have from the edge. There is not good vascular ingrowth. Patient would benefit from HBO therapy to help salvage her graft. Wound care: Dry gauze daily and PRN to the ulcer. If it gets too dry may apply antibiotic ointment to the ulcer only, not around the periwound where it is red. May apply moisture barrier to the periwound such as A&D ointment or Calmaceptine cream (samples given). Donor site incision is dry and intact and healing well on the left lower back/upper gluteal area. Sutures removed without difficulty. Right upper posterior thigh ulcer stable, continue Collagen hydrogel daily. Follow up in one week. A wound culture was obtained 12/23/19 which was positive for Strep anginosus and Corynebacterium striatum. She was treated with Augmentin and probiotic. Her last HgbA1c was 7.4 in 04/25. Will repeat that. It needs to be less than 8 before proceeding with the skin graft. Her last Prealbumin was 13.7 in 11/23. Encourage nutritional supplementation with protein to help the healing proces. 111xxx-113xx: [id number] Global Visit
--- NOTE | 2020-02-17 11:26 | EKG12_ITS ---
Test Reason : PRE-OP Blood Pressure : / mmHG Vent. Rate : 068 BPM Atrial Rate : 068 BPM P-R Int : 150 ms QRS Dur : 102 ms QT Int : 410 ms P-R-T Axes : 010 -33 070 degrees QTc Int : 435 ms Sinus rhythm with occasional Premature ventricular complexes Left axis deviation Low voltage QRS Abnormal ECG Confirmed by DORA PITTMAN, GI ([id number]), electronic news gathering editor MARYANNE TIJERINA ([id number]) on 02/18/2020 10:09:10 AM Referred By: Dustin Eaton Confirmed By:GI JOHN MD
--- NOTE | 2020-02-17 11:37 | RAD_ITS ---
STUDY: X-RAY CHEST REASON FOR EXAM: Female, 74 years old. Wound. Medical clearance. TECHNIQUE: PA and lateral chest COMPARISON: December 07, 2018. November 24, 2018. FINDINGS: On the lateral view there is patchy density in the posterior sulcus not well appreciated on the frontal view. No effusions. No pneumothorax. Normal size heart. Normal mediastinum and varsha. Normal visualized pulmonary arteries. Normal visualized aortic arch and descending thoracic aorta. Thoracic dextroscoliosis. Degenerative changes left shoulder. There is no demonstrated abnormality of the visualized soft tissue structures of the upper abdomen. RAD/Chest PA and Lateral IMPRESSION: Infiltrate versus fibrosis posterior aspect of the lower lobe, seen on the lateral view. If the patient has symptoms suggestive of pneumonia correlate with CT chest. Electronically Signed: Arvind Mejia MD at 6:58 EDT , Service support ,
[2020-02-17 12:32] LABS: Absolute Lymphocyte Count 2.73 X10^3/uL (0.83-4.51); Absolute Neutrophil Count 5.7 X10^3/uL (2.0-7.7); Basophil# 0.07 X10^3/uL; Basophil% 0.7 % (0-1); Eosinophil# 0.37 X10^3/uL; Eosinophils% 3.8 % (0-5); Hematocrit 33.3 % (37-47); Hemoglobin 10.2 g/dL (12.0-15.0); Lymphocyte # 2.73 X10^3/ul (4.0); Lymphocyte % 27.9 % (19-41); Mean Corp Hgb Conc 30.6 g/dL (32-36); Mean Corpuscular Hgb 25.2 pg (27.0-32.0); Mean Corpuscular Volume 82.4 fL (81-99); Mean Platelet Vol. 10.6 fl (6.2-12.0); Monocyte# 0.74 X10^3/uL; Monocyte% 7.6 % (0-10); NRBC Flagged by Analyzer 0 % (0-5); Neutrophil # 5.71 X10^3/uL (2.7-7.7); Neutrophil % 58.4 % (47-70); Platelet Count 401 K/mm3 (150-450); RBC Distribution Width CV 16.2 % (11.6-14.6); RBC Distribution Width SD 48.9 fl (35.1-43.9); Red Blood Count 4.04 M/mm3 (4.2-5.4); White Blood Count 9.8 K/mm3 (4.4-11.0)
[2020-02-17 12:49] LABS: Erythrocyte Sedimentation Rate 115 mm/hr (0-30)
[2020-02-24 13:09] VITALS: BP 126/59; PULSE 81; RESP 18; TEMP 36.5; BMI 34.7
--- NOTE | 2020-02-24 16:34 | PCM.WC.PN ---
Type of Wound Date of Service: 02/24/20 Chief Complaint: Nonhealing recurrent hidradenitis ulcer bilateral perianal area with skin graft compromise. History of Wound: Surgery 01/31/20 - Surgical preparation bilateral perianal area with excisional debridement nonhealing recurrent hidradenitis ulcer with FTSG reconstruction from left lower back/superior gluteal area (6.25 cm2) and placement AmnioFill placental connective tissue powder (250 mg). Wound care - Silver. Operative culture - Negative. She was continued on Augmentin from a preop culture (12/23/19) that showed Streptococcus anginosus, Corynebacterium striatum, and Anaerobic cocci. Prealbumin from 02/17/20 was 13.0. Encourage nutritional supplementation with protein to help the healing process. HgbA1c from 04/11/19 was 7.4. There is compromise of the skin graft. There is approx. 95% compromise of the graft. Patient would benefit from HBO therapy to help salvage her graft. CXR was done on 02/17/20 which showed infiltrate versus fibrosis posterior aspect of the lower lobe, seen on the lateral view. If the patient has symptoms suggestive of pneumonia correlate with CT Chest. The CT Chest is scheduled for 02/26/20. Donor site incision is dry and intact on the left lower back/upper gluteal area. Right upper posterior thigh ulcer has healed. Progress of Wound: Stable. - Physical Exam Vital Signs Temp Pulse Resp BP 97.7 F L 81 18 126/59 H 02/24/20 13:09 02/24/20 13:09 02/24/20 13:09 02/24/20 13:09 Wound Measurements and Assessment WC - Nurse 1 - General Ulcer Measurement Start: 02/10/20 13:13 Freq: Status: Active Protocol: Activity Type Activity Date Activity User E-Sign Co-Sign Detail Recorded Client Recorded Date Recorded By Document 02/24/20 13:09 [facility] [id number] 02/24/20 13:16 [facility] 02/24/20 13:09 Wound Center Nurse 1 [Ulcer Assessment] #2- coccyx/ Graft,post op -Combined with other wound No -Current Size (cm) - Length 4.8 -Current Size (cm) - Width 1.5 -Current Size (cm) - Depth 2.2 -Total Square Cm 7.20 -Photo Taken No -Epithelialization None Present -Tunneling No -Undermining/Tunneling No -Circular Undermining No -Exudate Amt Large -Exudate Type Serosanguineous -Wound Margin Distinct, Outline Attached -Granulation Amt Large (67-100%) -Granulation Quality Red -Slough/Fibrin Yes -Necrosis Amt Small (1-33%) -Necrotic Tissue Type Adherent Slough -Texture (Hailee-wound Skin Appearance) Assessed, Scarring -Moisture (Hailee-wound Skin Appearance Assessed ) -Color (Hailee-wound Skin Appearance) Assessed -Temperature (Hailee-wound Skin No Abnormality Appearance) (Pt Warm) -Tenderness on Palpation (Hailee-wound Yes Skin Appearance) -Ulcer Cleansing Rinsed/ Irrigated with Saline -Foul Odor after Cleansing No -Anesthetic Used 5% Lidocaine Gel - Nurse 2 - General Ulcer CM Notes Start: 02/10/20 13:13 Freq: Status: Active Protocol: Activity Type Activity Date Activity User E-Sign Co-Sign Detail Recorded Client Recorded Date Recorded By Document 02/24/20 13:34 DL [id number] 02/24/20 13:35 02/24/20 13:34 Wound Center Nurse 2 [Procedure/Treatment] -Time 13:34 -Correct Patient Yes -Correct Side, Site, Position Yes -Correct Procedure Yes -Procedure Performed Yes -Type of Procedure Debridement -Clinical Debridement Subcutaneous -Post Debridement Size (cm) - Length 4.8 -Post Debridement Size (cm) - Width 1.6 -Post Debridement Size (cm) - Depth 2.2 -Total Square Cm 7.68 -Wound/Ulcer Outcome Not Healed -Ulcer Cleansing Rinsed/ Irrigated with Saline -Foul Odor after Cleansing No -Bioengineered Tissue No -Bleeding Controlled with Pressure -Offloading No -Treatment Response Procedure Tolerated Well [See Physician Procedure note for Specifics] Pain Scale: 0-10 Numeric [Pain] -Is Patient Pain Free? Yes Debridement Note Post-Debridement Measurements/Treatment - Nurse 2 - General Ulcer CM Notes Start: 02/10/20 13:13 Freq: Status: Active Protocol: Activity Type Activity Date Activity User E-Sign Co-Sign Detail Recorded Client Recorded Date Recorded By Document 02/10/20 17:17 PL [id number] 02/10/20 17:17 PL Document 02/24/20 13:34 [id number] 02/24/20 13:35 02/10/20 02/24/20 17:17 13:34 Wound Center Nurse 2 #2- coccyx/ Graft,post op -Time 13:34 -Correct Patient Yes -Correct Side, Site, Position Yes -Correct Procedure Yes -Procedure Performed No Yes -Type of Procedure Debridement -Clinical Debridement Subcutaneous -Post Debridement Size (cm) - Length 4.8 -Post Debridement Size (cm) - Width 1.6 -Post Debridement Size (cm) - Depth 2.2 -Total Square Cm 7.68 -Wound/Ulcer Outcome Not Healed Not Healed -Ulcer Cleansing Rinsed/ Irrigated with Saline -Foul Odor after Cleansing No -Bioengineered Tissue No -Bleeding Controlled with Pressure -Offloading No -Treatment Response Procedure Tolerated Well Pain Scale: 0-10 Numeric Is Patient Pain Free? Yes Yes Wound debrided: #2 Bilateral perianal area. Laterality: Not Applicable Wound Grade/Stage: 2. Type of Debridement: Excisional debridement Anesthesia Used: 4% Lidocaine Solution Depth: Down to and including healthy tissue, in the subcutaneous layer Percentage of wound debrided: 100 Instrument Used: 3mm curette Tissue Removed: subcutaneous tissue. Severity: Fat Layer Exposed Amount of bleeding with debridement: Mild Bleeding Controlled with: Pressure Patient tolerated procedure well - there is compromise to the skin graft. Assessment/Plan Clinical Impression(s) from Imaging Studies Chest X-Ray 02/17/20 11:37 IMPRESSION: Infiltrate versus fibrosis posterior aspect of the lower lobe, seen on the lateral view. If the patient has symptoms suggestive of pneumonia correlate with CT chest. Electronically Signed: Arvind Mejia MD at 6:58 EDT , Service support , Active Problems (Last Reviewed 11/25/19 @ 11:[address] Alejandrina Garcias MD) Type 2 diabetes mellitus (Chronic) Assessment: 1. Nonhealing recurrent hidradenitis ulcer bilateral perianal area. 2. Hidradenitis. 3. Diabetes. 4. Former smoker. Plan: Continue Silver dressing changes daily. She is finishing Augmentin for preop culture (12/23/19) that showed Streptococcus anginosus, Corynebacterium striatum, and Anaerobic cocci. The operative culture was negative. Patient has compromised skin graft and would benefit from HBO treatments. CXR reviewed. A followup CT Chest was recommended prior to starting HBO. The CT is scheduled for 02/26/20. Her Prealbumin was 13.0 from 02/17/20. Encourage nutritional supplementation with protein to help the healing process. HgbA1c from 04/11/19 was 7.4. Followup one week. 111xxx-113xx: [id number] Global Visit - ICD-10 - Z48.89, L98.492, L73.2, T86.828, E11.9, Z87.891
[2020-03-02 14:26] VITALS: BP 136/59; PULSE 89; RESP 18; TEMP 37; BMI 34.7
--- NOTE | 2020-03-02 14:32 | PN.PCM_ITS ---
(1) Ulcer of perianal area with fat layer exposed Status: Chronic Code(s): L98.492 - Non-pressure chronic ulcer of skin of other sites with fat layer exposed Comment: nonhealing hidradenitis ulcer bilateral perianal areas (2) Hidradenitis suppurativa of anus Status: Chronic Code(s): L73.2 - Hidradenitis suppurativa (3) Type 2 diabetes mellitus Status: Chronic Code(s): E11.9 - Type 2 diabetes mellitus without complications Type of Wound Date of Service: 03/02/20 Chief Complaint: Nonhealing recurrent hidradenitis ulcer bilateral perianal area with skin graft compromise. History of Wound: Surgery 01/31/20 - Surgical preparation bilateral perianal area with excisional debridement nonhealing recurrent hidradenitis ulcer with FTSG reconstruction from left lower back/superior gluteal area (6.25 cm2) and placement AmnioFill placental connective tissue powder (250 mg). Wound care - Silver. Operative culture - Negative. She was continued on Augmentin from a preop culture (12/23/19) that showed Streptococcus anginosus, Corynebacterium striatum, and Anaerobic cocci. Prealbumin from 02/17/20 was 13.0. Encourage nutritional supplementation with protein to help the healing process. HgbA1c from 04/11/19 was 7.4. There is compromise of the skin graft. There is complete compromise of the graft. Patient would benefit from HBO therapy to help salvage her graft. CXR was done on 02/17/20 which showed infiltrate versus fibrosis posterior aspect of the lower lobe, seen on the lateral view. If the patient has symptoms suggestive of pneumonia correlate with CT Chest. The CT Chest was done on 02/26/20, which showed chronic interstitial changes in both antoine ng streeter without organized infiltrate, or effusion. There is a 4 mm noncalcified nodule in the superior segment of the right lower lobe on axial image 46, and a pleural-based 5 mm nodule in the right middle lobe on axial image 57. Six-month follow-up study recommended to assure stability. Will refer to Pulmonology for further evaluation and management. Donor site incision is dry and intact on the left lower back/upper gluteal area. Right upper posterior thigh ulcer has healed. Progress of Wound: Stable. - Physical Exam Vital Signs Temp Pulse Resp BP 97.7 F L 81 18 126/59 H 02/24/20 13:09 02/24/20 13:09 02/24/20 13:09 02/24/20 13:09 General: Alert, Oriented x3, Cooperative HEENT: Atraumatic Oral: Moist Mucosa Lungs: Normal air movement Cardiovascular: Regular rate Abdomen: Soft Extremities: Capillary Refill Less than 3 Seconds Skin: Ulcer/ Wound - Perianal ulcer. Musculoskeletal: No Tenderness to Palpation of Joints or Extremities Neurological: Cranial nerves II-XII grossly intact Psych/Mental Status: Normal Affect, Appropriate Debridement Note Post-Debridement Measurements/Treatment WC - Nurse 2 - General Ulcer CM Notes Start: 02/10/20 13:13 Freq: Status: Active Protocol: Activity Type Activity Date Activity User E-Sign Co-Sign Detail Recorded Client Recorded Date Recorded By Document 02/10/20 17:17 PL [id number] 02/10/20 17:17 PL Document 02/24/20 13:34 [id number] 02/24/20 13:35 02/10/20 02/24/20 17:17 13:34 Wound Center Nurse 2 #2- coccyx/ Graft,post op -Time 13:34 -Correct Patient Yes -Correct Side, Site, Position Yes -Correct Procedure Yes -Procedure Performed No Yes -Type of Procedure Debridement -Clinical Debridement Subcutaneous -Post Debridement Size (cm) - Length 4.8 -Post Debridement Size (cm) - Width 1.6 -Post Debridement Size (cm) - Depth 2.2 -Total Square (cm) 7.68 -Wound/Ulcer Outcome Not Healed Not Healed -Ulcer Cleansing Rinsed/ Irrigated with Saline -Foul Odor after Cleansing No -Bioengineered Tissue No -Bleeding Controlled with Pressure -Offloading No -Treatment Response Procedure Tolerated Well Pain Scale: 0-10 Numeric Is Patient Pain Free? Yes Yes Wound debrided: elisha anal ulcer Type of Debridement: Excisional debridement Anesthesia Used: 5% Lidocaine Gel Depth: Down to and including healthy tissue, in the subcutaneous layer Percentage of wound debrided: 100 Instrument Used: 3mm curette Tissue Removed: Subcutaneous tissue and slough Severity: Fat Layer Exposed Amount of bleeding with debridement: Mild Bleeding Controlled with: Pressure Assessment/Plan Clinical Impression(s) from Imaging Studies Chest X-Ray 02/17/20 11:37 IMPRESSION: Infiltrate versus fibrosis posterior aspect of the lower lobe, seen on the lateral view. If the patient has symptoms suggestive of pneumonia correlate with CT chest. Electronically Signed: Arvind Mejia MD at 6:58 EDT , Service support , Assessment: 1. Nonhealing recurrent hidradenitis ulcer bilateral perianal area. 2. Hidradenitis. 3. Diabetes. 4. Former smoker. Plan: Continue Silver dressing changes daily. She is finishing Augmentin for preop culture (12/23/19) that showed Streptococcus anginosus, Corynebacterium striatum, and Anaerobic cocci. The operative culture was negative. Patient has compromised skin graft and would benefit from HBO treatments. CXR reviewed. A followup CT Chest was recommended prior to starting HBO. The CT Chest was done on 02/26/20, which showed chronic interstitial changes in both lung streeter without organized infiltrate, or effusion. There is a 4 mm noncalcified nodule in the superior segment of the right lower lobe on axial image 46, and a pleural-based 5 mm nodule in the right middle lobe on axial image 57. Six-month follow-up study recommended to assure stability. Will refer to Pulmonology for further evaluation and management. Her Prealbumin was 13.0 from 02/17/20. Encourage nutritional supplementation with protein to help the healing process. HgbA1c from 04/11/19 was 7.4. Followup two weeks. [id number]: [id number] Global Visit
== END 2020-03-06 23:59 ==
LOC: WC 14:00
PROVIDERS: PCP Student in an Organized Health Care Education/Training Program; Referring Provider Surgery; Visit Provider Surgery
DX: L73.2 Hidradenitis suppurativa (principal); E11.9 Type 2 diabetes mellitus without complications; L98.492 Non-pressure chronic ulcer of skin of other sites with fat layer exposed; Z87.891 Personal history of nicotine dependence; B35.6 Tinea cruris
CPT/HCPCS: 11042; 36415; 71046; 84134; 85025; 85652; 93005; 99212; G0463

== ENCOUNTER 2020-04-06 14:15 | Outpatient (RCR) | payer MEDICARE, OTHER, SELFPAY ==
[2020-03-07 00:30] VITALS: BP 136/59; PULSE 89; RESP 18; TEMP 37
[2020-03-16 14:17] VITALS: BP 138/55; PULSE 75; RESP 20; TEMP 36.7; BMI 34.7
--- NOTE | 2020-03-16 15:32 | PN.PCM_ITS ---
(1) Ulcer of perianal area with fat layer exposed Status: Chronic Code(s): L98.492 - Non-pressure chronic ulcer of skin of other sites with fat layer exposed Comment: nonhealing hidradenitis ulcer bilateral perianal areas (2) Hidradenitis suppurativa of anus Status: Chronic Code(s): L73.2 - Hidradenitis suppurativa (3) Type 2 diabetes mellitus Status: Chronic Code(s): E11.9 - Type 2 diabetes mellitus without complications Type of Wound Date of Service: 03/16/20 Chief Complaint: Nonhealing recurrent hidradenitis ulcer bilateral perianal area with skin graft compromise. History of Wound: Surgery 01/31/20 - Surgical preparation bilateral perianal area with excisional debridement nonhealing recurrent hidradenitis ulcer with FTSG reconstruction from left lower back/superior gluteal area (6.25 cm2) and placement AmnioFill placental connective tissue powder (250 mg). Wound care - Silver. Calmaceptine cream to the excoriated elisha wound. Operative culture - Negative. She was continued on Augmentin from a preop culture (12/23/19) that showed Streptococcus anginosus, Corynebacterium striatum, and Anaerobic cocci. Prealbumin from 02/17/20 was 13.0. Encourage nutritional supplementation with protein to help the healing process. HgbA1c from 04/11/19 was 7.4. There is compromise of the skin graft. There is complete compromise of the graft. Patient would benefit from HBO therapy to help salvage her graft. CXR was done on 02/17/20 which showed infiltrate versus fibrosis posterior aspect of the lower lobe, seen on the lateral view. If the patient has symptoms suggestive of pneumonia correlate with CT Chest. The CT Chest was done on 02/26/20, which showed chronic interstitial changes in both lung streeter without organized infiltrate, or effusion. There is a 4 mm noncalcified nodule in the superior segment of the right lower lobe on axial image 46, and a pleural-based 5 mm nodule in the right middle lobe on axial image 57. Six-month follow-up study recommended to assure stability. Will refer to Pulmonology for further evaluation and management. She sees them later this week. Donor site incision is dry and intact on the left lower back/upper gluteal area. Right upper posterior thigh ulcer has healed. Progress of Wound: Stable. - Physical Exam Vital Signs Temp Pulse Resp BP 98.0 F 75 20 H 138/55 H 03/16/20 14:17 03/16/20 14:17 03/16/20 14:17 03/16/20 14:17 General: Alert, Oriented x3, Cooperative HEENT: Atraumatic Oral: Moist Mucosa Lungs: Normal air movement Cardiovascular: Regular rate Extremities: Capillary Refill Less than 3 Seconds Skin: Ulcer/ Wound - Perianal ulcer is beefy pink. The elisha wound is red and excoriated. Wound Measurements and Assessment WC - Nurse 1 - General Ulcer Measurement Start: 03/16/20 14:17 Freq: Status: Active Protocol: Activity Type Activity Date Activity User E-Sign Co-Sign Detail Recorded Client Recorded Date Recorded By Document 03/16/20 14:17 MW [id number] 03/16/20 14:22 MW 03/16/20 14:17 Wound Center Nurse 1 [Ulcer Assessment] #2- coccyx/ Graft,post op -Combined with other wound No -Current Size (cm) - Length 3.8 -Current Size (cm) - Width 1.0 -Current Size (cm) - Depth 1.2 -Total Square Cm 3.80 -Date of Last Picture (Recall this 03/16/20 field) -Photo Taken Yes -Epithelialization None Present -Tunneling No -Undermining/Tunneling No -Circular Undermining No -Exudate Amt Medium -Exudate Type Serosanguineous -Wound Margin Distinct, Outline Attached -Granulation Amt Large (67-100%) -Granulation Quality Red -Slough/Fibrin Yes -Necrosis Amt Small (1-33%) -Necrotic Tissue Type Adherent Slough -Structure Exposed N/A -Texture (Elisha-wound Skin Appearance) Assessed, Scarring -Moisture (Elisha-wound Skin Appearance No Abnormality, ) Assessed -Color (Elisha-wound Skin Appearance) No Abnormality, Assessed -Temperature (Elisha-wound Skin No Abnormality Appearance) (Pt Warm) -Tenderness on Palpation (Elisha-wound No Skin Appearance) -Ulcer Cleansing Rinsed/ Irrigated with Saline -Foul Odor after Cleansing No -Anesthetic Used 4% Lidocaine Solution [Edema Assessment] -Lower Limb Edema Present No WC - Nurse 2 - General Ulcer CM Notes Start: 03/16/20 14:17 Freq: Status: Active Protocol: Activity Type Activity Date Activity User E-Sign Co-Sign Detail Recorded Client Recorded Date Recorded By Document 03/16/20 14:28 JF [id number] 03/16/20 14:31 03/16/20 14:28 Wound Center Nurse 2 [Procedure/Treatment] #2- coccyx/ Graft,post op -Time 14:29 -Correct Patient Yes -Correct Side, Site, Position Yes -Correct Procedure Yes -Procedure Performed Yes -Type of Procedure Debridement -Clinical Debridement Subcutaneous -Post Debridement Size (cm) - Length 4.5 -Post Debridement Size (cm) - Width 2.0 -Post Debridement Size (cm) - Depth 2.2 -Total Square (cm) 9.00 -Wound/Ulcer Outcome Not Healed -Ulcer Cleansing Rinsed/ Irrigated with Saline -Foul Odor after Cleansing No -Bioengineered Tissue No -Bleeding Controlled with Pressure -Offloading No -Treatment Response Procedure Tolerated Well [See Physician Procedure note for Specifics] Pain Scale: 0-10 Numeric [Pain] -Is Patient Pain Free? Yes Musculoskeletal: Tenderness Neurological: Cranial nerves II-XII grossly intact Psych/Mental Status: Normal Affect, Appropriate Debridement Note Post-Debridement Measurements/Treatment WC - Nurse 2 - General Ulcer CM Notes Start: 03/16/20 14:17 Freq: Status: Active Protocol: Activity Type Activity Date Activity User E-Sign Co-Sign Detail Recorded Client Recorded Date Recorded By Document 03/16/20 14:28 [id number] 03/16/20 14:31 03/16/20 14:28 Wound Center Nurse 2 #2- coccyx/ Graft,post op -Time 14:29 -Correct Patient Yes -Correct Side, Site, Position Yes -Correct Procedure Yes -Procedure Performed Yes -Type of Procedure Debridement -Clinical Debridement Subcutaneous -Post Debridement Size (cm) - Length 4.5 -Post Debridement Size (cm) - Width 2.0 -Post Debridement Size (cm) - Depth 2.2 -Total Square (cm) 9.00 -Wound/Ulcer Outcome Not Healed -Ulcer Cleansing Rinsed/ Irrigated with Saline -Foul Odor after Cleansing No -Bioengineered Tissue No -Bleeding Controlled with Pressure -Offloading No -Treatment Response Procedure Tolerated Well Pain Scale: 0-10 Numeric Is Patient Pain Free? Yes Wound debrided: elisha anal ulcer Type of Debridement: Excisional debridement Anesthesia Used: 5% Lidocaine Gel Depth: Down to and including healthy tissue, in the subcutaneous layer Percentage of wound debrided: 100 Instrument Used: 5mm curette Tissue Removed: Subcutaneous tissue and slough Severity: Fat Layer Exposed Amount of bleeding with debridement: Mild Bleeding Controlled with: Pressure Patient tolerated procedure well Assessment/Plan Assessment: 1. Nonhealing recurrent hidradenitis ulcer bilateral perianal area. 2. Hidradenitis. 3. Diabetes. 4. Former smoker. Plan: Wound care - Continue Silver dressing changes daily. Place Calmaceptin cream 1-2 times daily to the excoriated elisha wound area. She is finishing Augmentin for preop culture (12/23/19) that showed Streptococcus anginosus, Corynebacterium striatum, and Anaerobic cocci. The operative culture was negative. Patient has compromised skin graft and would benefit from HBO jovanni tments. CXR reviewed. A followup CT Chest was recommended prior to starting HBO. The CT Chest was done on 02/26/20, which showed chronic interstitial changes in both lung streeter without organized infiltrate, or effusion. There is a 4 mm noncalcified nodule in the superior segment of the right lower lobe on axial image 46, and a pleural-based 5 mm nodule in the right middle lobe on axial image 57. Six-month follow-up study recommended to assure stability. Will refer to Pulmonology for further evaluation and management. She has an appointment later in the week with them. Her Prealbumin was 13.0 from 02/17/20. Encourage nutritional supplementation with protein to help the healing process. HgbA1c from 04/11/19 was 7.4. Followup two weeks. 111xxx-113xx: [id number] Global Visit
[2020-03-30 13:01] VITALS: BP 154/55; PULSE 91; RESP 16; TEMP 36.8; BMI 34.7
--- NOTE | 2020-03-30 14:08 | PN.PCM_ITS ---
(1) Ulcer of perianal area with fat layer exposed Status: Chronic Current Visit: Yes Code(s): L98.492 - Non-pressure chronic ulcer of skin of other sites with fat layer exposed Comment: nonhealing hidradenitis ulcer bilateral perianal areas (2) Hidradenitis suppurativa of anus Status: Chronic Current Visit: Yes Code(s): L73.2 - Hidradenitis suppurativa (3) Type 2 diabetes mellitus Status: Chronic Current Visit: Yes Code(s): E11.9 - Type 2 diabetes mellitus without complications Type of Wound Date of Service: 03/30/20 Chief Complaint: Nonhealing recurrent hidradenitis ulcer bilateral perianal area with skin graft compromise. History of Wound: Surgery 01/31/20 - Surgical preparation bilateral perianal area with excisional debridement nonhealing recurrent hidradenitis ulcer with FTSG reconstruction from left lower back/superior gluteal area (6.25 cm2) and placement AmnioFill placental connective tissue powder (250 mg). Wound care - Silver. Calmaceptine cream or any barrier cream to the excoriated elisha wound. Operative culture - Negative. She was continued on Augmentin from a preop culture (12/23/19) that showed Streptococcus anginosus, Corynebacterium striatum, and Anaerobic cocci. Prealbumin from 02/17/20 was 13.0. Encourage nutritional supplementation with protein to help the healing process. HgbA1c from 04/11/19 was 7.4. There is compromise of the skin graft. There is complete compromise of the graft. Patient would benefit from HBO therapy to help salvage her graft. CXR was done on 02/17/20 which showed infiltrate versus fibrosis posterior aspect of the lower lobe, seen on the lateral view. If the patient has symptoms suggestive of pneumonia correlate with CT Chest. The CT Chest was done on 02/26/20, which showed chronic interstitial changes in both lung streeter without organized infiltrate, or effusion. There is a 4 mm noncalcified nodule in the superior segment of the right lower lobe on axial image 46, and a pleural-based 5 mm nodule in the right middle lobe on axial image 57. Six-month follow-up study recommended to assure stability. She saw Pulmonology which will manage her lung issues but they did clear her for HBO. Her ECG showed frequent PVC's will check with her tour counselor for clearance or if she needs to follow up with them sooner than her scheduled appointment in May. Donor site incision is dry and intact on the left lower back/upper gluteal area. Progress of Wound: Stable. - Physical Exam Vital Signs Temp Pulse Resp BP 98.2 F 91 16 154/55 H 03/30/20 13:01 03/30/20 13:01 03/30/20 13:01 03/30/20 13:01 General: Alert, Oriented x3, Cooperative HEENT: Atraumatic Oral: Moist Mucosa Lungs: Normal air movement Cardiovascular: Regular rate Extremities: Capillary Refill Less than 3 Seconds Skin: Ulcer/ Wound - Perianal ulcer is beefy red. Wound Measurements and Assessment WC - Nurse 1 - General Ulcer Measurement Start: 03/16/20 14:17 Freq: Status: Active Protocol: Activity Type Activity Date Activity User E-Sign Co-Sign Detail Recorded Client Recorded Date Recorded By Document 03/30/20 13:01 [facility] [id number] 03/30/20 13:14 [facility] 03/30/20 13:01 Wound Center Nurse 1 [Ulcer Assessment] #2- coccyx/ Graft,post op -Combined with other wound No -Current Size (cm) - Length 3.8 -Current Size (cm) - Width 1.4 -Current Size (cm) - Depth 1.4 -Total Square Cm 5.32 -Photo Taken No -Epithelialization None Present -Tunneling No -Undermining/Tunneling No -Circular Undermining No -Exudate Amt Small -Exudate Type Serosanguineous -Wound Margin Distinct, Outline Attached -Granulation Amt Large (67-100%) -Granulation Quality Red -Slough/Fibrin Yes -Necrosis Amt Small (1-33%) -Necrotic Tissue Type Adherent Slough -Texture (Elisha-wound Skin Appearance) Assessed, Scarring -Moisture (Elisha-wound Skin Appearance Assessed ) -Color (Elisha-wound Skin Appearance) Assessed, Erythema -Temperature (Elisha-wound Skin No Abnormality Appearance) (Pt Warm) -Tenderness on Palpation (Elisha-wound Yes Skin Appearance) -Ulcer Cleansing Rinsed/ Irrigated with Saline -Foul Odor after Cleansing No -Anesthetic Used 4% Lidocaine Solution WC - Nurse 2 - General Ulcer CM Notes Start: 03/30/20 13:34 Freq: Status: Active Protocol: Activity Type Activity Date Activity User E-Sign Co-Sign Detail Recorded Client Recorded Date Recorded By Document 03/30/20 13:35 [id number] 03/30/20 13:36 03/30/20 13:35 Wound Center Nurse 2 [Procedure/Treatment] -Time 13:35 -Correct Patient Yes -Correct Side, Site, Position Yes -Correct Procedure Yes -Procedure Performed Yes -Type of Procedure Debridement -Clinical Debridement Subcutaneous -Tissue Removed Subcutaneous -Post Debridement (cm) - Length 3.5 -Post Debridement (cm) - Width 2.0 -Post Debridement (cm) - Depth 1.8 -Total Square (Post) (cm) 7.00 -Area of Debridement (cm) - Length 3.5 -Area of Debridement (cm) - Width 2 -Total Square (Area) (cm) 7.0 -Tunneling No -Undermining/Tunneling No -Circular Undermining No -Wound/Ulcer Outcome Not Healed -Ulcer Cleansing Rinsed/ Irrigated with Saline -Foul Odor after Cleansing No -Bioengineered Tissue No -Bleeding Controlled with Pressure -Offloading No -Treatment Response Procedure Tolerated Well -Debridement - Subq, 1st 20sq cm Yes [See Physician Procedure note for Specifics] Pain Scale: 0-10 Numeric [Pain] -Is Patient Pain Free? Yes - Nurse 3 - General Ulcer D/C NN Start: 03/30/20 13:49 Freq: Status: Active Protocol: Activity Type Activity Date Activity User E-Sign Co-Sign Detail Recorded Client Recorded Date Recorded By Document 03/30/20 13:54 [id number] 03/30/20 13:55 03/30/20 13:54 Wound Care Nurse 3 [Wound Dressing] #2- coccyx/ Graft,post op -Ulcer Cleansing Rinsed/ Irrigated with Saline -Foul Odor after Cleansing No -Primary Dressing Applied Aquacel AG 4x4 -Primary Dressing Covered/Secured Dry Gauze, with Secured with Tape -Aquacel AG 4x4 1 [Post Procedure Tolerated] -Treatment Response Procedure Tolerated Well Pain Scale: 0-10 Numeric [Pain] -Is Patient Pain Free? Yes - Visit Discharge [Visit Discharge Information] -Discharge Condition Stable -Ambulatory Status Ambulatory, Walker -Transportation Private Auto Musculoskeletal: No Tenderness to Palpation of Joints or Extremities Neurological: Cranial nerves II-XII grossly intact Psych/Mental Status: Normal Affect, Appropriate Debridement Note Post-Debridement Measurements/Treatment WC - Nurse 2 - General Ulcer CM Notes Start: 03/30/20 13:34 Freq: Status: Active Protocol: Activity Type Activity Date Activity User E-Sign Co-Sign Detail Recorded Client Recorded Date Recorded By Document 03/30/20 13:35 DL [id number] 03/30/20 13:36 DL 03/30/20 13:35 Wound Center Nurse 2 #2- coccyx/ Graft,post op -Time 13:35 -Correct Patient Yes -Correct Side, Site, Position Yes -Correct Procedure Yes -Procedure Performed Yes -Type of Procedure Debridement -Clinical Debridement Subcutaneous -Tissue Removed Subcutaneous -Post Debridement (cm) - Length 3.5 -Post Debridement (cm) - Width 2.0 -Post Debridement (cm) - Depth 1.8 -Total Square (Post) (cm) 7.00 -Area of Debridement (cm) - Length 3.5 -Area of Debridement (cm) - Width 2 -Total Square (Area) (cm) 7.0 -Tunneling No -Undermining/Tunneling No -Circular Undermining No -Wound/Ulcer Outcome Not Healed -Ulcer Cleansing Rinsed/ Irrigated with Saline -Foul Odor after Cleansing No -Bioengineered Tissue No -Bleeding Controlled with Pressure -Offloading No -Treatment Response Procedure Tolerated Well -Debridement - Subq, 1st 20sq cm Yes Pain Scale: 0-10 Numeric Is Patient Pain Free? Yes - Nurse 3 - General Ulcer D/C NN Start: 03/30/20 13:49 Freq: Status: Active Protocol: Activity Type Activity Date Activity User E-Sign Co-Sign Detail Recorded Client Recorded Date Recorded By Document 03/30/20 13:54 DL [id number] 03/30/20 13:55 DL 03/30/20 13:54 Wound Care Nurse 3 #2- coccyx/ Graft,post op -Ulcer Cleansing Rinsed/ Irrigated with Saline -Foul Odor after Cleansing No -Primary Dressing Applied Aquacel AG 4x4 -Primary Dressing Covered/Secured with Dry Gauze, Secured with Tape -Aquacel AG 4x4 1 Treatment Response Procedure Tolerated Well Pain Scale: 0-10 Numeric Is Patient Pain Free? Yes WC - Visit Discharge Discharge Condition Stable Ambulatory Status Ambulatory, Walker Transportation Private Auto Wound debrided: Perianal ulcer Type of Debridement: Excisional debridement Anesthesia Used: 5% Lidocaine Gel Depth: Down to and including healthy tissue, in the subcutaneous layer Percentage of wound debrided: 100 Instrument Used: 5mm curette Tissue Removed: Subcutaneous tissue and slough Severity: Fat Layer Exposed Amount of bleeding with debridement: Mild Bleeding Controlled with: Pressure Patient tolerated procedure well Assessment/Plan Active Problems (Last Reviewed 03/19/20 @ 11:19 by Basilia Quiros) Hidradenitis suppurativa of anus (Chronic) Ulcer of perianal area with fat layer exposed (Chronic) nonhealing hidradenitis ulcer bilateral perianal areas Type 2 diabetes mellitus (Chronic) Assessment: 1. Nonhealing recurrent hidradenitis ulcer bilateral perianal area. 2. Hidradenitis. 3. Diabetes. 4. Former smoker. Plan: Wound care - Continue Silver dressing changes daily. Place Calmaceptin cream, A&D ointment or any barrier cream 1-2 times daily to the excoriated elisha wound area. She is finishing Augmentin for preop culture (12/23/19) that showed Streptococcus anginosus, Corynebacterium striatum, and Anaerobic cocci. The operative culture was negative. Patient has compromised skin graft and would benefit from HBO treatments. CXR reviewed. A followup CT Chest was recommended prior to starting HBO. The CT Chest was done on 02/26/20, which showed chronic interstitial changes in both lung streeter without organized infiltrate, or effusion. There is a 4 mm noncalcified nodule in the superior segment of the right lower lobe on axial image 46, and a pleural-based 5 mm nodule in the right middle lobe on axial image 57. Six-month follow-up study recommended to assure stability. She saw Pulmonology which will manage her lung issues but they did clear her for HBO. Her ECG showed frequent PVC's will check with her tour counselor for clearance or if she needs to follow up with them sooner than her scheduled appointment in May. Will order labwork to prepare for HBO. Her Prealbumin was 13.0 from 02/17/20. Encourage nutritional supplementation with protein to help the healing process. HgbA1c from 04/11/19 was 7.4. Followup one week. [id number]: [id number] Global Visit
--- NOTE | 2020-04-01 12:23 | WC ---
RECEIVED TC FROM TAHIR @ [facility]. STATES THERE ARE NO CONTRAINDICATIONS FOR PT TO PROCEED W/ HBO TX HERE AT THE WOUND CENTER. EF IN WNL. UPDATED PT'S JUAN A VITALE.
[2020-04-06 14:19] VITALS: BP 133/54; PULSE 72; RESP 16; TEMP 36.6; BMI 34.7
--- NOTE | 2020-04-06 15:30 | PCM.WC.PN ---
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 History of Wound: Surgery 01/31/20 - Surgical preparation bilateral perianal area with excisional debridement nonhealing recurrent hidradenitis ulcer with FTSG reconstruction from left lower back/superior gluteal area (6.25 cm2) and placement AmnioFill placental connective tissue powder (250 mg). Wound care - Silver. Calmaceptine cream or any barrier cream to the excoriated elisha wound. Operative culture - Negative. She was continued on Augmentin from a preop culture (12/23/19) that showed Streptococcus anginosus, Corynebacterium striatum, and Anaerobic cocci. Prealbumin from 02/17/20 was 13.0. Encourage nutritional supplementation with protein to help the healing process. HgbA1c from 04/11/19 was 7.4. There is compromise of the skin graft. There is complete compromise of the graft. Patient would benefit from HBO therapy to help salvage her graft. CXR was done on 02/17/20 which showed infiltrate versus fibrosis posterior aspect of the lower lobe, seen on the lateral view. If the patient has symptoms suggestive of pneumonia correlate with CT Chest. The CT Chest was done on 02/26/20, which showed chronic interstitial changes in both lung streeter without organized infiltrate, or effusion. There is a 4 mm noncalcified nodule in the superior segment of the right lower lobe on axial image 46, and a pleural-based 5 mm nodule in the right middle lobe on axial image 57. Six-month follow-up study recommended to assure stability. She saw Pulmonology which will manage her lung issues and they did clear her for HBO. Her ECG showed frequent PVC's. Her cardiology group gave a verbal clearance for HBOT, waiting for a written clearance. Hopefully she will be able to start HBOT this week. Donor site incision is dry and intact on the left lower back/upper gluteal area. Today she denies any fever and states her appetite is good. Progress of Wound: Stable. - Physical Exam Vital Signs Temp Pulse Resp BP 98 F 72 16 133/54 H 04/06/20 14:19 04/06/20 14:19 04/06/20 14:19 04/06/20 14:19 General: Alert, Oriented x3, Cooperative HEENT: Atraumatic Oral: Moist Mucosa Lungs: Normal air movement Cardiovascular: Regular rate Abdomen: Soft Extremities: Capillary Refill Less than 3 Seconds Skin: Ulcer/ Wound - elisha anal ulcer is pink and stable Wound Measurements and Assessment WC - Nurse 1 - General Ulcer Measurement Start: 03/16/20 14:17 Freq: Status: Active Protocol: Activity Type Activity Date Activity User E-Sign Co-Sign Detail Recorded Client Recorded Date Recorded By Document 04/06/20 14:19 DL [id number] 04/06/20 14:27 DL 04/06/20 14:19 Wound Center Nurse 1 [Ulcer Assessment] #2- coccyx/ Graft,post op -Combined with other wound No -Current Size (cm) - Length 3.7 -Current Size (cm) - Width 3.3 -Current Size (cm) - Depth 1.2 -Total Square Cm 12.21 -Photo Taken No -Epithelialization Small 1-33% -Tunneling No -Undermining/Tunneling No -Circular Undermining No -Wound Margin Distinct, Outline Attached -Granulation Amt Large (67-100%) -Granulation Quality Red -Slough/Fibrin No -Necrosis Amt None Present (0 %) -Texture (Elisha-wound Skin Appearance) Assessed, Scarring -Moisture (Elisha-wound Skin Appearance Assessed ) -Color (Elisha-wound Skin Appearance) Assessed, Erythema -Temperature (Elisha-wound Skin No Abnormality Appearance) (Pt Warm) -Tenderness on Palpation (Elisha-wound No Skin Appearance) -Ulcer Cleansing Rinsed/ Irrigated with Saline -Foul Odor after Cleansing No -Anesthetic Used 4% Lidocaine Solution WC - Nurse 2 - General Ulcer CM Notes Start: 03/30/20 13:34 Freq: Status: Active Protocol: Activity Type Activity Date Activity User E-Sign Co-Sign Detail Recorded Client Recorded Date Recorded By Document 04/06/20 14:54 [id number] 04/06/20 14:56 04/06/20 14:54 Wound Center Nurse 2 [Procedure/Treatment] -Time 14:54 -Correct Patient Yes -Correct Side, Site, Position Yes -Correct Procedure Yes -Clinical Debridement Subcutaneous -Tissue Removed Subcutaneous -Post Debridement (cm) - Length 4.0 -Post Debridement (cm) - Width 1.8 -Post Debridement (cm) - Depth 3.2 -Total Square (Post) (cm) 7.20 -Area of Debridement (cm) - Length 4.0 -Area of Debridement (cm) - Width 1.8 -Total Square (Area) (cm) 7.20 -Tunneling No -Undermining/Tunneling No -Circular Undermining No -Wound/Ulcer Outcome Not Healed -Ulcer Cleansing Rinsed/ Irrigated with Saline -Foul Odor after Cleansing No -Bioengineered Tissue No -Bleeding Controlled with Pressure -Offloading No -Treatment Response Procedure Tolerated Well -Debridement - Subq, 1st 20sq cm Yes [See Physician Procedure note for Specifics] Pain Scale: 0-10 Numeric [Pain] -Is Patient Pain Free? Yes - Nurse 3 - General Ulcer D/C NN Start: 03/30/20 13:49 Freq: Status: Active Protocol: Activity Type Activity Date Activity User E-Sign Co-Sign Detail Recorded Client Recorded Date Recorded By Document 04/06/20 15:04 [facility] [id number] 04/06/20 15:05 [facility] 04/06/20 15:04 Wound Care Nurse 3 [Wound Dressing] #2- coccyx/ Graft,post op -Ulcer Cleansing Rinsed/ Irrigated with Saline -Foul Odor after Cleansing No -Primary Dressing Applied Aquacel AG 4x4 -Primary Dressing Covered/Secured Dry Gauze, with Secured with Tape -Aquacel AG 4x4 1 [Post Procedure Tolerated] -Treatment Response Procedure Tolerated Well Pain Scale: 0-10 Numeric [Pain] -Is Patient Pain Free? Yes - Visit Discharge [Visit Discharge Information] -Discharge Condition Stable -Ambulatory Status Ambulatory, Walker -Transportation Private Auto -Accompanied by Musculoskeletal: No Tenderness to Palpation of Joints or Extremities Neurological: Cranial nerves II-XII grossly intact Psych/Mental Status: Normal Affect, Appropriate Debridement Note Post-Debridement Measurements/Treatment - Nurse 2 - General Ulcer CM Notes Start: 03/30/20 13:34 Freq: Status: Active Protocol: Activity Type Activity Date Activity User E-Sign Co-Sign Detail Recorded Client Recorded Date Recorded By Document 03/30/20 13:35 [id number] 03/30/20 13:36 Document 04/06/20 14:54 [id number] 04/06/20 14:56 03/30/20 04/06/20 13:35 14:54 Wound Center Nurse 2 #2- coccyx/ Graft,post op -Time 13:35 14:54 -Correct Patient Yes Yes -Correct Side, Site, Position Yes Yes -Correct Procedure Yes Yes -Procedure Performed Yes -Type of Procedure Debridement -Clinical Debridement Subcutaneous Subcutaneous -Tissue Removed Subcutaneous Subcutaneous -Post Debridement (cm) - Length 3.5 4.0 -Post Debridement (cm) - Width 2.0 1.8 -Post Debridement (cm) - Depth 1.8 3.2 -Total Square (Post) (cm) 7.00 7.20 -Area of Debridement (cm) - Length 3.5 4.0 -Area of Debridement (cm) - Width 2 1.8 -Total Square (Area) (cm) 7.0 7.20 -Tunneling No No -Undermining/Tunneling No No -Circular Undermining No No -Wound/Ulcer Outcome Not Healed Not Healed -Ulcer Cleansing Rinsed/ Rinsed/ Irrigated with Irrigated with Saline Saline -Foul Odor after Cleansing No No -Bioengineered Tissue No No -Bleeding Controlled with Pressure Pressure -Offloading No No -Treatment Response Procedure Procedure Tolerated Well Tolerated Well -Debridement - Subq, 1st 20sq cm Yes Yes Pain Scale: 0-10 Numeric Is Patient Pain Free? Yes Yes - Nurse 3 - General Ulcer D/C NN Start: 03/30/20 13:49 Freq: Status: Active Protocol: Activity Type Activity Date Activity User E-Sign Co-Sign Detail Recorded Client Recorded Date Recorded By Document 03/30/20 13:54 [id number] 03/30/20 13:55 Document 04/06/20 15:04 [facility] [id number] 04/06/20 15:05 [facility] 03/30/20 04/06/20 13:54 15:04 Wound Care Nurse 3 #2- coccyx/ Graft,post op -Ulcer Cleansing Rinsed/ Rinsed/ Irrigated with Irrigated with Saline Saline -Foul Odor after Cleansing No No -Primary Dressing Applied Aquacel AG 4x4 Aquacel AG 4x4 -Primary Dressing Covered/Secured with Dry Gauze, Dry Gauze, Secured with Secured with Tape Tape -Aquacel AG 4x4 1 1 Treatment Response Procedure Procedure Tolerated Well Tolerated Well Pain Scale: 0-10 Numeric Is Patient Pain Free? Yes Yes WC - Visit Discharge Discharge Condition Stable Stable Ambulatory Status Ambulatory, Ambulatory, Walker Walker Transportation Private Auto Private Auto Accompanied by Wound debrided: elisha anal ulcer Type of Debridement: Excisional debridement Anesthesia Used: 5% Lidocaine Gel Depth: Down to and including healthy tissue, in the subcutaneous layer Percentage of wound debrided: 100 Instrument Used: 5mm curette Tissue Removed: Subcutaneous tissue and slough Severity: Fat Layer Exposed Amount of bleeding with debridement: Mild Bleeding Controlled with: Pressure Patient tolerated procedure well Assessment/Plan Assessment: 1. Nonhealing recurrent hidradenitis ulcer bilateral perianal area. 2. Hidradenitis. 3. Diabetes. 4. Former smoker. Plan: Wound care - Continue Silver dressing changes daily. Place Calmaceptin cream, A&D ointment or any barrier cream 1-2 times daily to the excoriated elisha wound area. She has finished Augmentin for preop culture (12/23/19) that showed Streptococcus anginosus, Corynebacterium striatum, and Anaerobic cocci. The operative culture was negative. Patient has compromised skin graft and would benefit from HBO treatments. CXR reviewed. A followup CT Chest was recommended prior to starting HBO. The CT Chest was done on 02/26/20, which showed chronic interstitial changes in both lung streeter without organized infiltrate, or effusion. There is a 4 mm noncalcified nodule in the superior segment of the right lower lobe on axial image 46, and a pleural-based 5 mm nodule in the right middle lobe on axial image 57. Six-month follow-up study recommended to assure stability. She saw Pulmonology which will manage her lung issues but they did clear her for HBO. Her ECG showed frequent PVC's , her cardiology group gave a verbal clearance for HBO, we are waiting for written clearance. Hopefully that will be received today so she can start HBOT this week. Her insurance has approved the HBO. Her Prealbumin was 13.0 from 02/17/20. Encourage nutritional supplementation with protein to help the healing process. HgbA1c from 04/11/19 was 7.4. Followup three weeks. 111xxx-113xx: [id number] Global Visit
== END 2020-04-06 23:59 ==
LOC: WC 14:15
PROVIDERS: PCP Student in an Organized Health Care Education/Training Program; Referring Provider Surgery; Visit Provider Surgery
DX: L73.2 Hidradenitis suppurativa (principal); E11.9 Type 2 diabetes mellitus without complications; L98.492 Non-pressure chronic ulcer of skin of other sites with fat layer exposed; Z87.891 Personal history of nicotine dependence; T86.821 Skin graft (allograft) (autograft) failure; Y83.8 Other surgical procedures as the cause of abnormal reaction of the patient, or of later complication, without mention of misadventure at the time of the procedure
CPT/HCPCS: 11042

== ENCOUNTER 2020-05-06 10:30 | Outpatient (RCR) | payer MEDICARE, OTHER, SELFPAY ==
[2019-10-06 00:29] VITALS: BP 156/54; PULSE 91; RESP 18; TEMP 36.7
[2020-04-07 00:34] VITALS: BMI 33.5
--- NOTE | 2020-04-08 11:32 | PCM.HBO.PN ---
History of Present Illness Date of Service: 04/08/20 Presenting Chief Complaint: Nonhealing recurrent hidradenitis ulcer bilateral perianal area with skin graft compromise. CHRISS VERA is a 75 year old currently undergoing hyperbaric oxygen therapy for optimized coccyx graft. She has a nonhealing hidradenitis bilateral perianal that had a skin graft that became compromised after surgery was January 302019 Progress: Patient is to start #1 HBO treatment today ALEM 2.0 for 30 treatments with no air breaks Tolerance of hyperbaric oxygen therapy: Patient's vital signs are stable during treatment she is tolerant to the compression therapy will continue to monitor her vital signs. 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) Ulcer of perianal area with fat layer exposed (Chronic) nonhealing hidradenitis ulcer bilateral perianal areas Atherosclerosis of coronary artery of [place] without angina pectoris (Chronic) Essential hypertension (Chronic) Anemia (Chronic) Asthma (Chronic) Chronic pneumonia (Chronic) Hyperlipidemia (Chronic) Type 2 diabetes mellitus (Chronic) Hypothyroidism (Chronic) COPD (chronic obstructive pulmonary disease) (Chronic) Allergies/Adverse Reactions: Allergies adhesive tape Allergy (Unknown, Verified 03/19/20 11:15) Other Severe itching azithromycin [From Zithromax] Allergy (Unknown, Verified 03/19/20 11:15) Shortness of breath Patient stated she also breaks out in a rash cephalexin [From Keflex] Allergy (Unknown, Verified 03/19/20 11:15) Shortness of breath Patient stated she also breaks out in a rash Home Medications: Ambulatory Orders Medication Instructions Recorded atorvastatin 80 mg tablet 80 mg PO DAILY 10/25/18 bimatoprost 0.01 % eye drops 1 drp OPHTHALMIC QPM 10/25/18 citalopram 20 mg tablet 20 mg PO DAILY 10/25/18 furosemide 40 mg tablet 40 mg PO DAILY 10/25/18 metformin 500 mg tablet 500 mg PO BID 10/25/18 polyethylene glycol 3350 17 gram 17 g PO DAILY PRN 10/25/18 oral powder packet potassium chloride 20 mEq oral 20 meq PO DAILY 10/25/18 packet pumpkin seed extract-soy germ 300 1 cap PO PRN PRN cap 10/25/18 mg capsule ropinirole 0.5 mg tablet 0.5 mg PO QHS 10/25/18 Latanoprost 0.005% [Xalatan 1 drp OPHTHALMIC (EYE) HS 12/03/18 Opthalmic] Levothyroxine [Synthroid] 175 mcg PO MOTUWETHFRSA 12/03/18 Nystatin Powder [Mycostatin Powder] 1 applic TOPICAL BID 12/03/18 Bisacodyl [Dulcolax] 10 mg PO DAILY PRN tab 01/18/19 Mineral Oil/Petrolatum,White 1 applic TOPICAL QHS jar 01/18/19 [Eucerin] Nutritional Supplement [Juice - 1 packet PO BIDCM #60 packet 01/18/19 ORANGE FLAVOR] Pantoprazole Sodium [Protonix] 40 mg PO DAILY #30 tab 01/18/19 Senna [Senokot] 2 tab PO BID tab 01/18/19 buPROPion SR [Wellbutrin SR (150mg 150 mg PO BID #60 tablet.sa 01/18/19 tablets)] hydrOXYzine pamoate capsule 50 mg PO 4X/DAY PRN PRN #120 cap 01/18/19 [Vistaril pamoate capsule] Rifampin [Rifadin] 300 mg PO BID #14 cap 01/25/19 Insulin NPH/Reg 70/30 [Novolin 50 units SUBCUT BIDAC 01/03/20 70/30] Lactobacillus Acidophilus/Fos 1 ea PO BID #30 tab 01/31/20 [Acidophilus Probiotic Tablet] Maternal Family History: Family History (Last Reviewed 03/19/20 @ 11:19 by Basilia Quiros) Mother Lung cancer Anxiety Arthritis Depression (emotion) Diabetes Sister CVA (cerebral vascular accident) Anxiety Asthma Depression (emotion) Heart disease Aunt Arthritis Depression (emotion) Diabetes Daughter Cancer Grandmother Diabetes Grandfather Heart disease Psychiatric care CVA (cerebral vascular accident) Father COPD (chronic obstructive pulmonary disease) Family History: No pertinent history Paternal Family History: Family History (Last Reviewed 03/19/20 @ 11:19 by Basilia Quiros) Mother Lung cancer Anxiety Arthritis Depression (emotion) Diabetes Sister CVA (cerebral vascular accident) Anxiety Asthma Depression (emotion) Heart disease Aunt Arthritis Depression (emotion) Diabetes Daughter Cancer Grandmother Diabetes Grandfather Heart disease Psychiatric care CVA (cerebral vascular accident) Father COPD (chronic obstructive pulmonary disease) Family History: No pertinent history Physical Exam Vital Signs Temp Pulse Resp BP 98.1 F 91 18 156/54 H 10/06/19 00:29 10/06/19 00:29 10/06/19 00:29 10/06/19 00:29 Assessment/Plan Nonhealing recurrent hidradenitis is ulcer on bilateral perianal area with skin graft compromise
[2020-04-08 13:44] VITALS: BP 101/41; BP 93/44; PULSE 76; PULSE 82; RESP 18; RESP 20; TEMP 36.3; TEMP 36.4
[2020-04-10 11:42] VITALS: BP 127/58; BP 137/55; PULSE 66; PULSE 76; RESP 16; RESP 18; TEMP 36.6
--- NOTE | 2020-04-10 13:18 | HBO.PN.PCM_ITS ---
History of Present Illness Date of Service: 04/10/20 Presenting Chief Complaint: Nonhealing recurrent hidradenitis ulcer bilateral perianal area with skin graft compromise. CHRISS VERA is a 75 year old currently undergoing hyperbaric oxygen therapy for optimized coccyx graft. She has a nonhealing hidradenitis bilateral perineal that had a skin graft that became compromised after surgery on January 302019 Progress: Today is the 2nd treatment of hyperbaric oxygen therapy for the patient. The patient is scheduled for 30 treatments total. Tolerance of hyperbaric oxygen therapy: Hyperbaric oxygen treatment was provided as per the facility's protocol at 2.0 ALEM in 100% oxygen for 90 minutes without air breaks. The patient tolerated hyperbaric oxygen well, without complications or complaints. Upon emergence of the hyperbaric chamber, the patient's vital signs remained stable. 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) Ulcer of perianal area with fat layer exposed (Chronic) nonhealing hidradenitis ulcer bilateral perianal areas Atherosclerosis of coronary artery of [place] heart without angina pectoris (Chronic) Essential hypertension (Chronic) Anemia (Chronic) Asthma (Chronic) Chronic pneumonia (Chronic) Hyperlipidemia (Chronic) Type 2 diabetes mellitus (Chronic) Hypothyroidism (Chronic) COPD (chronic obstructive pulmonary disease) (Chronic) Allergies/Adverse Reactions: Allergies adhesive tape Allergy (Unknown, Verified 03/19/20 11:15) Other Severe itching azithromycin [From Zithromax] Allergy (Unknown, Verified 03/19/20 11:15) Shortness of breath Patient stated she also breaks out in a rash cephalexin [From Keflex] Allergy (Unknown, Verified 03/19/20 11:15) Shortness of breath Patient stated she also breaks out in a rash Home Medications: Ambulatory Orders Medication Instructions Recorded atorvastatin 80 mg tablet 80 mg PO DAILY 10/25/18 bimatoprost 0.01 % eye drops 1 drp OPHTHALMIC QPM 10/25/18 citalopram 20 mg tablet 20 mg PO DAILY 10/25/18 furosemide 40 mg tablet 40 mg PO DAILY 10/25/18 metformin 500 mg tablet 500 mg PO BID 10/25/18 polyethylene glycol 3350 17 gram 17 g PO DAILY PRN 10/25/18 oral powder packet potassium chloride 20 mEq oral 20 meq PO DAILY 10/25/18 packet pumpkin seed extract-soy germ 300 1 cap PO PRN PRN cap 10/25/18 mg capsule ropinirole 0.5 mg tablet 0.5 mg PO QHS 10/25/18 Latanoprost 0.005% [Xalatan 1 drp OPHTHALMIC (EYE) HS 12/03/18 Opthalmic] Levothyroxine [Synthroid] 175 mcg PO MOTUWETHFRSA 12/03/18 Nystatin Powder [Mycostatin Powder] 1 applic TOPICAL BID 12/03/18 Bisacodyl [Dulcolax] 10 mg PO DAILY PRN tab 01/18/19 Mineral Oil/Petrolatum,White 1 applic TOPICAL QHS jar 01/18/19 [Eucerin] Nutritional Supplement [Juice - 1 packet PO BIDCM #60 packet 01/18/19 ORANGE FLAVOR] Pantoprazole Sodium [Protonix] 40 mg PO DAILY #30 tab 01/18/19 Senna [Senokot] 2 tab PO BID tab 01/18/19 buPROPion SR [Wellbutrin SR (150mg 150 mg PO BID #60 tablet.sa 01/18/19 tablets)] hydrOXYzine pamoate capsule 50 mg PO 4X/DAY PRN PRN #120 cap 01/18/19 [Vistaril pamoate capsule] Rifampin [Rifadin] 300 mg PO BID #14 cap 01/25/19 Insulin NPH/Reg 70/30 [Novolin 50 units SUBCUT BIDAC 01/03/20 70/30] Lactobacillus Acidophilus/Fos 1 ea PO BID #30 tab 01/31/20 [Acidophilus Probiotic Tablet] Maternal Family History: Family History (Last Reviewed 03/19/20 @ 11:19 by Basilia Quiros) Mother Lung cancer Anxiety Arthritis Depression (emotion) Diabetes Sister CVA (cerebral vascular accident) Anxiety Asthma Depression (emotion) Heart disease Aunt Arthritis Depression (emotion) Diabetes Daughter Cancer Grandmother Diabetes Grandfather Heart disease Psychiatric care CVA (cerebral vascular accident) Father COPD (chronic obstructive pulmonary disease) Family History: No pertinent history Paternal Family History: Family History (Last Reviewed 03/19/20 @ 11:19 by Basilia Quiros) Mother Lung cancer Anxiety Arthritis Depression (emotion) Diabetes Sister CVA (cerebral vascular accident) Anxiety Asthma Depression (emotion) Heart disease Aunt Arthritis Depression (emotion) Diabetes Daughter Cancer Grandmother Diabetes Grandfather Heart disease Psychiatric care CVA (cerebral vascular accident) Father COPD (chronic obstructive pulmonary disease) Family History: No pertinent history Smoking Status: Former smoker Physical Exam Vital Signs Temp Pulse Resp BP 97.8 F 76 16 137/55 H 04/10/20 11:42 04/10/20 11:42 04/10/20 11:42 04/10/20 11:42 General: Alert, Oriented x3, Cooperative, No apparent distress Psych/Mental Status: Normal Affect, Appropriate Assessment/Plan Active Problems (Last Reviewed 03/19/20 @ 11:19 by Basilia Quiros) Skin graft (allograft) (autograft) failure (Chronic) Partial loss of skin graft (Acute) Nonhealing ulcer of right lower extremity with fat layer exposed (Chronic) Ulcer of perianal area with fat layer exposed (Chronic) nonhealing hidradenitis ulcer bilateral perianal areas The patient appears to be tolerating hyperbaric oxygen therapy well, which will be continued as per his medical treatment plan. Treatment Course Number Number of HBO Treatments 30 Ordered Treatment Course Number 1 Treatment # 2 Chamber # 1 Chamber Type Monoplace Other - Detail Compromised/Failed Flap/Graft Yes (specify site in comment) Treatment Plan ALEM (Atmospheric Absolute) 2.0 Number of Minutes 90 Number of Air Breaks 0
[2020-04-14 11:55] LABS: Bedside Glucose 144 mg/dL (70-110)
[2020-04-14 13:36] LABS: Bedside Glucose 202 mg/dL (70-110)
[2020-04-14 13:41] VITALS: BP 109/53; BP 122/62; PULSE 71; PULSE 86; RESP 16; TEMP 35.6; TEMP 35.7
--- NOTE | 2020-04-14 13:48 | PCM.HBO.PN ---
History of Present Illness Date of Service: 04/14/20 Presenting Chief Complaint: Nonhealing recurrent hidradenitis ulcer bilateral perianal area with skin graft compromise. CHRISS VERA is a 75 year old currently undergoing hyperbaric oxygen therapy for optimized coccyx graft. She has a nonhealing hidradenitis bilateral perineal that had a skin graft that became compromised after surgery on January 302019. Progress: Today is the 3rd treatment of hyperbaric oxygen therapy for the patient. The patient is scheduled for 30 treatments total. Tolerance of hyperbaric oxygen therapy: Hyperbaric oxygen treatment was provided as per the facility's protocol at 2.0 ALEM in 100% oxygen for 90 minutes without air breaks. The patient tolerated hyperbaric oxygen well, without complications or complaints. Upon emergence of the hyperbaric chamber, the patient's vital signs remained stable. She was discharged in good condition. 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) Ulcer of perianal area with fat layer exposed (Chronic) nonhealing hidradenitis ulcer bilateral perianal areas Atherosclerosis of coronary artery of [place] heart without angina pectoris (Chronic) Essential hypertension (Chronic) Anemia (Chronic) Asthma (Chronic) Chronic pneumonia (Chronic) Hyperlipidemia (Chronic) Type 2 diabetes mellitus (Chronic) Hypothyroidism (Chronic) COPD (chronic obstructive pulmonary disease) (Chronic) Allergies/Adverse Reactions: Allergies adhesive tape Allergy (Unknown, Verified 03/19/20 11:15) Other Severe itching azithromycin [From Zithromax] Allergy (Unknown, Verified 03/19/20 11:15) Shortness of breath Patient stated she also breaks out in a rash cephalexin [From Keflex] Allergy (Unknown, Verified 03/19/20 11:15) Shortness of breath Patient stated she also breaks out in a rash Home Medications: Ambulatory Orders Medication Instructions Recorded atorvastatin 80 mg tablet 80 mg PO DAILY 10/25/18 bimatoprost 0.01 % eye drops 1 drp OPHTHALMIC QPM 10/25/18 citalopram 20 mg tablet 20 mg PO DAILY 10/25/18 furosemide 40 mg tablet 40 mg PO DAILY 10/25/18 metformin 500 mg tablet 500 mg PO BID 10/25/18 polyethylene glycol 3350 17 gram 17 g PO DAILY PRN 10/25/18 oral powder packet potassium chloride 20 mEq oral 20 meq PO DAILY 10/25/18 packet pumpkin seed extract-soy germ 300 1 cap PO PRN PRN cap 10/25/18 mg capsule ropinirole 0.5 mg tablet 0.5 mg PO QHS 10/25/18 Latanoprost 0.005% [Xalatan 1 drp OPHTHALMIC (EYE) HS 12/03/18 Opthalmic] Levothyroxine [Synthroid] 175 mcg PO MOTUWETHFRSA 12/03/18 Nystatin Powder [Mycostatin Powder] 1 applic TOPICAL BID 12/03/18 Bisacodyl [Dulcolax] 10 mg PO DAILY PRN tab 01/18/19 Mineral Oil/Petrolatum,White 1 applic TOPICAL QHS jar 01/18/19 [Eucerin] Nutritional Supplement [Juice - 1 packet PO BIDCM #60 packet 01/18/19 ORANGE FLAVOR] Pantoprazole Sodium [Protonix] 40 mg PO DAILY #30 tab 01/18/19 Senna [Senokot] 2 tab PO BID tab 01/18/19 buPROPion SR [Wellbutrin SR (150mg 150 mg PO BID #60 tablet.sa 01/18/19 tablets)] hydrOXYzine pamoate capsule 50 mg PO 4X/DAY PRN PRN #120 cap 01/18/19 [Vistaril pamoate capsule] Rifampin [Rifadin] 300 mg PO BID #14 cap 01/25/19 Insulin NPH/Reg 70/30 [Novolin 50 units SUBCUT BIDAC 01/03/20 70/30] Lactobacillus Acidophilus/Fos 1 ea PO BID #30 tab 01/31/20 [Acidophilus Probiotic Tablet] Maternal Family History: Family History (Last Reviewed 03/19/20 @ 11:19 by Basilia Quiros) Mother Lung cancer Anxiety Arthritis Depression (emotion) Diabetes Sister CVA (cerebral vascular accident) Anxiety Asthma Depression (emotion) Heart disease Aunt Arthritis Depression (emotion) Diabetes Daughter Cancer Grandmother Diabetes Grandfather Heart disease Psychiatric care CVA (cerebral vascular accident) Father COPD (chronic obstructive pulmonary disease) Family History: No pertinent history Paternal Family History: Family History (Last Reviewed 03/19/20 @ 11:19 by Basilia Quiros) Mother Lung cancer Anxiety Arthritis Depression (emotion) Diabetes Sister CVA (cerebral vascular accident) Anxiety Asthma Depression (emotion) Heart disease Aunt Arthritis Depression (emotion) Diabetes Daughter Cancer Grandmother Diabetes Grandfather Heart disease Psychiatric care CVA (cerebral vascular accident) Father COPD (chronic obstructive pulmonary disease) Family History: No pertinent history Smoking Status: Former smoker Physical Exam Vital Signs Temp Pulse Resp BP 96.0 F L 86 16 109/53 L 04/14/20 13:41 04/14/20 13:41 04/14/20 13:41 04/14/20 13:41 General: Alert, Oriented x3, Cooperative, No apparent distress, Well developed, Well nourished HEENT: Atraumatic, PERRLA, EOMI, Normocephalic Lungs: Normal air movement Psych/Mental Status: Normal Affect, Appropriate, Alert and oriented to time, place, person, mood and affect Assessment/Plan The patient appears to be tolerating hyperbaric oxygen therapy well, which will be continued as per the patient's medical plan. Treatment Course Number Number of HBO Treatments 30 Ordered Treatment Course Number 1 Treatment # 3 Chamber # 1 Chamber Type Monoplace Other - Detail Compromised/Failed Flap/Graft Yes (specify site in comment) Treatment Plan ALEM (Atmospheric Absolute) 2 Number of Minutes 90 Number of Air Breaks 0
[2020-04-15 11:16] LABS: Bedside Glucose 192 mg/dL (70-110)
--- NOTE | 2020-04-15 12:50 | HBO.PN.PCM_ITS ---
History of Present Illness Date of Service: 04/15/20 Presenting Chief Complaint: Nonhealing recurrent hidradenitis ulcer bilateral perianal area with skin graft compromise. CHRISS VERA is a 75 year old currently undergoing hyperbaric oxygen therapy for optimized coccyx graft. She has a nonhealing hidradenitis bilateral perineal that had a skin graft that became compromised after surgery on January 302019. Progress: Today is the 4th treatment of hyperbaric oxygen therapy for the patient. The patient is scheduled for 30 treatments total. Tolerance of hyperbaric oxygen therapy: Hyperbaric oxygen treatment was provided as per the facility's protocol at 2.0 ALEM in 100% oxygen for 90 minutes without air breaks. The patient tolerated hyperbaric oxygen well, without complications or complaints. Upon emergence of the hyperbaric chamber, the patient's vital signs remained stable. She was discharged in good condition. 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) Ulcer of perianal area with fat layer exposed (Chronic) nonhealing hidradenitis ulcer bilateral perianal areas Atherosclerosis of coronary artery of [place] heart without angina pectoris (Chronic) Essential hypertension (Chronic) Anemia (Chronic) Asthma (Chronic) Chronic pneumonia (Chronic) Hyperlipidemia (Chronic) Type 2 diabetes mellitus (Chronic) Hypothyroidism (Chronic) COPD (chronic obstructive pulmonary disease) (Chronic) Allergies/Adverse Reactions: Allergies adhesive tape Allergy (Unknown, Verified 03/19/20 11:15) Other Severe itching azithromycin [From Zithromax] Allergy (Unknown, Verified 03/19/20 11:15) Shortness of breath Patient stated she also breaks out in a rash cephalexin [From Keflex] Allergy (Unknown, Verified 03/19/20 11:15) Shortness of breath Patient stated she also breaks out in a rash Home Medications: Ambulatory Orders Medication Instructions Recorded atorvastatin 80 mg tablet 80 mg PO DAILY 10/25/18 bimatoprost 0.01 % eye drops 1 drp OPHTHALMIC QPM 10/25/18 citalopram 20 mg tablet 20 mg PO DAILY 10/25/18 furosemide 40 mg tablet 40 mg PO DAILY 10/25/18 metformin 500 mg tablet 500 mg PO BID 10/25/18 polyethylene glycol 3350 17 gram 17 g PO DAILY PRN 10/25/18 oral powder packet potassium chloride 20 mEq oral 20 meq PO DAILY 10/25/18 packet pumpkin seed extract-soy germ 300 1 cap PO PRN PRN cap 10/25/18 mg capsule ropinirole 0.5 mg tablet 0.5 mg PO QHS 10/25/18 Latanoprost 0.005% [Xalatan 1 drp OPHTHALMIC (EYE) HS 12/03/18 Opthalmic] Levothyroxine [Synthroid] 175 mcg PO MOTUWETHFRSA 12/03/18 Nystatin Powder [Mycostatin Powder] 1 applic TOPICAL BID 12/03/18 Bisacodyl [Dulcolax] 10 mg PO DAILY PRN tab 01/18/19 Mineral Oil/Petrolatum,White 1 applic TOPICAL QHS jar 01/18/19 [Eucerin] Nutritional Supplement [Juice - 1 packet PO BIDCM #60 packet 01/18/19 ORANGE FLAVOR] Pantoprazole Sodium [Protonix] 40 mg PO DAILY #30 tab 01/18/19 Senna [Senokot] 2 tab PO BID tab 01/18/19 buPROPion SR [Wellbutrin SR (150mg 150 mg PO BID #60 tablet.sa 01/18/19 tablets)] hydrOXYzine pamoate capsule 50 mg PO 4X/DAY PRN PRN #120 cap 01/18/19 [Vistaril pamoate capsule] Rifampin [Rifadin] 300 mg PO BID #14 cap 01/25/19 Insulin NPH/Reg 70/30 [Novolin 50 units SUBCUT BIDAC 01/03/20 70/30] Lactobacillus Acidophilus/Fos 1 ea PO BID #30 tab 01/31/20 [Acidophilus Probiotic Tablet] Maternal Family History: Family History (Last Reviewed 03/19/20 @ 11:19 by Basilia Quiros) Mother Lung cancer Anxiety Arthritis Depression (emotion) Diabetes Sister CVA (cerebral vascular accident) Anxiety Asthma Depression (emotion) Heart disease Aunt Arthritis Depression (emotion) Diabetes Daughter Cancer Grandmother Diabetes Grandfather Heart disease Psychiatric care CVA (cerebral vascular accident) Father COPD (chronic obstructive pulmonary disease) Family History: No pertinent history Paternal Family History: Family History (Last Reviewed 03/19/20 @ 11:19 by Basilia Quiros) Mother Lung cancer Anxiety Arthritis Depression (emotion) Diabetes Sister CVA (cerebral vascular accident) Anxiety Asthma Depression (emotion) Heart disease Aunt Arthritis Depression (emotion) Diabetes Daughter Cancer Grandmother Diabetes Grandfather Heart disease Psychiatric care CVA (cerebral vascular accident) Father COPD (chronic obstructive pulmonary disease) Family History: No pertinent history Smoking Status: Former smoker Physical Exam Vital Signs Temp Pulse Resp BP 96.0 F L 86 16 109/53 L 04/14/20 13:41 04/14/20 13:41 04/14/20 13:41 04/14/20 13:41 Assessment/Plan The patient appears to be tolerating hyperbaric oxygen therapy well, which will be continued as per the patient's medical plan. Treatment Course Number Number of HBO Treatments 30 Ordered Treatment Course Number 1 Treatment # 3 Chamber # 1 Chamber Type Monoplace Other - Detail Compromised/Failed Flap/Graft Yes (specify site in comment) Treatment Plan ALEM (Atmospheric Absolute) 2 Number of Minutes 90 Number of Air Breaks 0
[2020-04-15 13:01] LABS: Bedside Glucose 216 mg/dL (70-110)
[2020-04-15 17:30] VITALS: BP 118/97; BP 136/76; PULSE 101; PULSE 69; RESP 16; RESP 18; TEMP 36.4; TEMP 36.8
[2020-04-16 12:36] LABS: Bedside Glucose 159 mg/dL (70-110)
[2020-04-16 12:36] LABS: Bedside Glucose 162 mg/dL (70-110)
[2020-04-16 12:36] LABS: Bedside Glucose 218 mg/dL (70-110)
[2020-04-16 12:36] LABS: Bedside Glucose 232 mg/dL (70-110)
[2020-04-16 12:36] LABS: Bedside Glucose 129 mg/dL (70-110)
[2020-04-20 10:25] LABS: Bedside Glucose 116 mg/dL (70-110)
[2020-04-20 10:45] LABS: Bedside Glucose 159 mg/dL (70-110)
[2020-04-20 11:33] VITALS: BP 134/68; BP 153/56; PULSE 66; PULSE 79; RESP 16; RESP 18; TEMP 36.7; TEMP 36.8
[2020-04-20 13:11] LABS: Bedside Glucose 207 mg/dL (70-110)
--- NOTE | 2020-04-20 13:18 | HBO.PN.PCM_ITS ---
History of Present Illness Date of Service: 04/20/20 Presenting Chief Complaint: Nonhealing recurrent hidradenitis ulcer bilateral perianal area with skin graft compromise. CHRISS VERA is a 75 year old currently undergoing hyperbaric oxygen therapy for compromised skin graft. She has a nonhealing hidradenitis bilateral perineal that had a skin graft placed that became compromised after surgery on January 302019. Progress: Today is the 5th treatment of hyperbaric oxygen therapy for the patient. The patient is scheduled for 30 treatments total. Tolerance of hyperbaric oxygen therapy: Hyperbaric oxygen treatment was provided as per the facility's protocol at 2.0 ALEM in 100% oxygen for 90 minutes without air breaks. The patient tolerated hyperbaric oxygen well, without complications or complaints. Upon emergence of the hyperbaric chamber, the patient's vital signs remained stable. Pre-treatment blood glucose was 159. Post-treatment blood glucose was 207. She was discharged in good condition. 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) Ulcer of perianal area with fat layer exposed (Chronic) nonhealing hidradenitis ulcer bilateral perianal areas Atherosclerosis of coronary artery of [place] heart without angina pectoris (Chronic) Essential hypertension (Chronic) Anemia (Chronic) Asthma (Chronic) Chronic pneumonia (Chronic) Hyperlipidemia (Chronic) Type 2 diabetes mellitus (Chronic) Hypothyroidism (Chronic) COPD (chronic obstructive pulmonary disease) (Chronic) Allergies/Adverse Reactions: Allergies adhesive tape Allergy (Unknown, Verified 03/19/20 11:15) Other Severe itching azithromycin [From Zithromax] Allergy (Unknown, Verified 03/19/20 11:15) Shortness of breath Patient stated she also breaks out in a rash cephalexin [From Keflex] Allergy (Unknown, Verified 03/19/20 11:15) Shortness of breath Patient stated she also breaks out in a rash Home Medications: Ambulatory Orders Medication Instructions Recorded atorvastatin 80 mg tablet 80 mg PO DAILY 10/25/18 bimatoprost 0.01 % eye drops 1 drp OPHTHALMIC QPM 10/25/18 citalopram 20 mg tablet 20 mg PO DAILY 10/25/18 furosemide 40 mg tablet 40 mg PO DAILY 10/25/18 metformin 500 mg tablet 500 mg PO BID 10/25/18 polyethylene glycol 3350 17 gram 17 g PO DAILY PRN 10/25/18 oral powder packet potassium chloride 20 mEq oral 20 meq PO DAILY 10/25/18 packet pumpkin seed extract-soy germ 300 1 cap PO PRN PRN cap 10/25/18 mg capsule ropinirole 0.5 mg tablet 0.5 mg PO QHS 10/25/18 Latanoprost 0.005% [Xalatan 1 drp OPHTHALMIC (EYE) HS 12/03/18 Opthalmic] Levothyroxine [Synthroid] 175 mcg PO MOTUWETHFRSA 12/03/18 Nystatin Powder [Mycostatin Powder] 1 applic TOPICAL BID 12/03/18 Bisacodyl [Dulcolax] 10 mg PO DAILY PRN tab 01/18/19 Mineral Oil/Petrolatum,White 1 applic TOPICAL QHS jar 01/18/19 [Eucerin] Nutritional Supplement [Juice - 1 packet PO BIDCM #60 packet 01/18/19 ORANGE FLAVOR] Pantoprazole Sodium [Protonix] 40 mg PO DAILY #30 tab 01/18/19 Senna [Senokot] 2 tab PO BID tab 01/18/19 buPROPion SR [Wellbutrin SR (150mg 150 mg PO BID #60 tablet.sa 01/18/19 tablets)] hydrOXYzine pamoate capsule 50 mg PO 4X/DAY PRN PRN #120 cap 01/18/19 [Vistaril pamoate capsule] Rifampin [Rifadin] 300 mg PO BID #14 cap 01/25/19 Insulin NPH/Reg 70/30 [Novolin 50 units SUBCUT BIDAC 01/03/20 70/30] Lactobacillus Acidophilus/Fos 1 ea PO BID #30 tab 01/31/20 [Acidophilus Probiotic Tablet] Maternal Family History: Family History (Last Reviewed 03/19/20 @ 11:19 by Basilia Quiros) Mother Lung cancer Anxiety Arthritis Depression (emotion) Diabetes Sister CVA (cerebral vascular accident) Anxiety Asthma Depression (emotion) Heart disease Aunt Arthritis Depression (emotion) Diabetes Daughter Cancer Grandmother Diabetes Grandfather Heart disease Psychiatric care CVA (cerebral vascular accident) Father COPD (chronic obstructive pulmonary disease) Family History: No pertinent history Paternal Family History: Family History (Last Reviewed 03/19/20 @ 11:19 by Basilia Quiros) Mother Lung cancer Anxiety Arthritis Depression (emotion) Diabetes Sister CVA (cerebral vascular accident) Anxiety Asthma Depression (emotion) Heart disease Aunt Arthritis Depression (emotion) Diabetes Daughter Cancer Grandmother Diabetes Grandfather Heart disease Psychiatric care CVA (cerebral vascular accident) Father COPD (chronic obstructive pulmonary disease) Family History: No pertinent history Smoking Status: Former smoker Physical Exam Vital Signs Temp Pulse Resp BP 98.2 F 79 18 153/56 H 04/20/20 11:33 04/20/20 11:33 04/20/20 11:33 04/20/20 11:33 Assessment/Plan Treatment Course Number Number of HBO Treatments 30 Ordered Treatment Course Number 1 Treatment # 5 Chamber # [id number] Chamber Type Monoplace Other - Detail Compromised/Failed Flap/Graft Yes (specify site in comment) Treatment Plan ALEM (Atmospheric Absolute) 2 Number of Minutes 90 Number of Air Breaks 0 Hyperbaric Charges CPT - 77064 ICD-10 - T86.828, L73.2
[2020-04-21 11:06] LABS: Bedside Glucose 168 mg/dL (70-110)
[2020-04-21 13:05] LABS: Bedside Glucose 263 mg/dL (70-110)
[2020-04-21 13:51] VITALS: BP 131/68; BP 136/77; PULSE 64; PULSE 83; RESP 16; RESP 18; TEMP 36.3; TEMP 36.8
--- NOTE | 2020-04-21 14:41 | HBO.PN.PCM_ITS ---
History of Present Illness Date of Service: 04/21/20 Presenting Chief Complaint: Nonhealing recurrent hidradenitis ulcer bilateral perianal area with skin graft compromise. CHRISS VERA is a 75 year old currently undergoing hyperbaric oxygen therapy for optimized coccyx graft. She has a nonhealing hidradenitis bilateral perineal that had a skin graft that became compromised after surgery on January 302019. Progress: Today is the 6th treatment of hyperbaric oxygen therapy for the patient. The patient is scheduled for 30 treatments total. Tolerance of hyperbaric oxygen therapy: Hyperbaric oxygen treatment was provided as per the facility's protocol at 2.0 ALEM in 100% oxygen for 90 minutes without air breaks. The patient tolerated hyperbaric oxygen well, without complications or complaints. Upon emergence of the hyperbaric chamber, the patient's vital signs remained stable. She was discharged in good condition. Pre- and post- glucose measurements are documented. 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) Ulcer of perianal area with fat layer exposed (Chronic) nonhealing hidradenitis ulcer bilateral perianal areas Atherosclerosis of coronary artery of [place] heart without angina pectoris (Chronic) Essential hypertension (Chronic) Anemia (Chronic) Asthma (Chronic) Chronic pneumonia (Chronic) Hyperlipidemia (Chronic) Type 2 diabetes mellitus (Chronic) Hypothyroidism (Chronic) COPD (chronic obstructive pulmonary disease) (Chronic) Allergies/Adverse Reactions: Allergies adhesive tape Allergy (Unknown, Verified 03/19/20 11:15) Other Severe itching azithromycin [From Zithromax] Allergy (Unknown, Verified 03/19/20 11:15) Shortness of breath Patient stated she also breaks out in a rash cephalexin [From Keflex] Allergy (Unknown, Verified 03/19/20 11:15) Shortness of breath Patient stated she also breaks out in a rash Home Medications: Ambulatory Orders Medication Instructions Recorded atorvastatin 80 mg tablet 80 mg PO DAILY 10/25/18 bimatoprost 0.01 % eye drops 1 drp OPHTHALMIC QPM 03/21/19 citalopram 20 mg tablet 20 mg PO DAILY 10/25/18 furosemide 40 mg tablet 40 mg PO DAILY 10/25/18 metformin 500 mg tablet 500 mg PO BID 10/25/18 polyethylene glycol 3350 17 gram 17 g PO DAILY PRN 10/25/18 oral powder packet potassium chloride 20 mEq oral 20 meq PO DAILY 10/25/18 packet pumpkin seed extract-soy germ 300 1 cap PO PRN PRN cap 10/25/18 mg capsule ropinirole 0.5 mg tablet 0.5 mg PO QHS 10/25/18 Latanoprost 0.005% [Xalatan 1 drp OPHTHALMIC (EYE) HS 12/03/18 Opthalmic] Levothyroxine [Synthroid] 175 mcg PO MOTUWETHFRSA 12/03/18 Nystatin Powder [Mycostatin Powder] 1 applic TOPICAL BID 12/03/18 Bisacodyl [Dulcolax] 10 mg PO DAILY PRN tab 01/18/19 Mineral Oil/Petrolatum,White 1 applic TOPICAL QHS jar 01/18/19 [Eucerin] Nutritional Supplement [Juice - 1 packet PO BIDCM #60 packet 01/18/19 ORANGE FLAVOR] Pantoprazole Sodium [Protonix] 40 mg PO DAILY #30 tab 01/18/19 Senna [Senokot] 2 tab PO BID tab 01/18/19 buPROPion SR [Wellbutrin SR (150mg 150 mg PO BID #60 tablet.sa 01/18/19 tablets)] hydrOXYzine pamoate capsule 50 mg PO 4X/DAY PRN PRN #120 cap 01/18/19 [Vistaril pamoate capsule] Rifampin [Rifadin] 300 mg PO BID #14 cap 01/25/19 Insulin NPH/Reg 70/30 [Novolin 50 units SUBCUT BIDAC 01/03/20 70/30] Lactobacillus Acidophilus/Fos 1 ea PO BID #30 tab 01/31/20 [Acidophilus Probiotic Tablet] Maternal Family History: Family History (Last Reviewed 03/19/20 @ 11:19 by Basilia Quiros) Mother Lung cancer Anxiety Arthritis Depression (emotion) Diabetes Sister CVA (cerebral vascular accident) Anxiety Asthma Depression (emotion) Heart disease Aunt Arthritis Depression (emotion) Diabetes Daughter Cancer Grandmother Diabetes Grandfather Heart disease Psychiatric care CVA (cerebral vascular accident) Father COPD (chronic obstructive pulmonary disease) Family History: No pertinent history Paternal Family History: Family History (Last Reviewed 03/19/20 @ 11:19 by Basilia Quiros) Mother Lung cancer Anxiety Arthritis Depression (emotion) Diabetes Sister CVA (cerebral vascular accident) Anxiety Asthma Depression (emotion) Heart disease Aunt Arthritis Depression (emotion) Diabetes Daughter Cancer Grandmother Diabetes Grandfather Heart disease Psychiatric care CVA (cerebral vascular accident) Father COPD (chronic obstructive pulmonary disease) Family History: No pertinent history Smoking Status: Former smoker Physical Exam Vital Signs Temp Pulse Resp BP 98.2 F 83 18 136/77 H 04/21/20 13:51 04/21/20 13:51 04/21/20 13:51 04/21/20 13:51 General: Alert, Oriented x3, Cooperative, No apparent distress, Well developed, Well nourished HEENT: Atraumatic, PERRLA, EOMI, Normocephalic Lungs: Normal air movement Psych/Mental Status: Normal Affect, Appropriate, Alert and oriented to time, place, person, mood and affect Assessment/Plan The patient appears to be tolerating hyperbaric oxygen therapy well, which will be continued as per the patient's medical plan. Treatment Course Number Number of HBO Treatments 30 Ordered Treatment Course Number 1 Treatment # 6 Chamber # 1 Chamber Type Monoplace Other - Detail Compromised/Failed Flap/Graft Yes (specify site in comment) Treatment Plan ALEM (Atmospheric Absolute) 2.0 Number of Minutes 90 Number of Air Breaks 0
[2020-04-22 11:06] LABS: Bedside Glucose 119 mg/dL (70-110)
[2020-04-22 11:06] LABS: Bedside Glucose 141 mg/dL (70-110)
--- NOTE | 2020-04-22 12:29 | PCM.HBO.PN ---
History of Present Illness Date of Service: 04/22/20 Presenting Chief Complaint: Nonhealing recurrent hidradenitis ulcer bilateral perianal area with skin graft compromise. CHRISS VERA is a 75 year old currently undergoing hyperbaric oxygen therapy for compromised skin graft. She has a nonhealing hidradenitis bilateral perineal that had a skin graft placed that became compromised after surgery on January 302019. Progress: Today is the 5th treatment of hyperbaric oxygen therapy for the patient. The patient is scheduled for 30 treatments total. Tolerance of hyperbaric oxygen therapy: Hyperbaric oxygen treatment was provided as per the facility's protocol at 2.0 ALEM in 100% oxygen for 90 minutes without air breaks. The patient tolerated hyperbaric oxygen well, without complications or complaints. Upon emergence of the hyperbaric chamber, the patient's vital signs remained stable. Pre-treatment blood glucose was 159. Post-treatment blood glucose was 207. She was discharged in good condition. 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) Ulcer of perianal area with fat layer exposed (Chronic) nonhealing hidradenitis ulcer bilateral perianal areas Atherosclerosis of coronary artery of [place] heart without angina pectoris (Chronic) Essential hypertension (Chronic) Anemia (Chronic) Asthma (Chronic) Chronic pneumonia (Chronic) Hyperlipidemia (Chronic) Type 2 diabetes mellitus (Chronic) Hypothyroidism (Chronic) COPD (chronic obstructive pulmonary disease) (Chronic) Allergies/Adverse Reactions: Allergies adhesive tape Allergy (Unknown, Verified 03/19/20 11:15) Other Severe itching azithromycin [From Zithromax] Allergy (Unknown, Verified 03/19/20 11:15) Shortness of breath Patient stated she also breaks out in a rash cephalexin [From Keflex] Allergy (Unknown, Verified 03/19/20 11:15) Shortness of breath Patient stated she also breaks out in a rash Home Medications: Ambulatory Orders Medication Instructions Recorded atorvastatin 80 mg tablet 80 mg PO DAILY 10/25/18 bimatoprost 0.01 % eye drops 1 drp OPHTHALMIC QPM 10/25/18 citalopram 20 mg tablet 20 mg PO DAILY 10/25/18 furosemide 40 mg tablet 40 mg PO DAILY 10/25/18 metformin 500 mg tablet 500 mg PO BID 10/25/18 polyethylene glycol 3350 17 gram 17 g PO DAILY PRN 10/25/18 oral powder packet potassium chloride 20 mEq oral 20 meq PO DAILY 10/25/18 packet pumpkin seed extract-soy germ 300 1 cap PO PRN PRN cap 10/25/18 mg capsule ropinirole 0.5 mg tablet 0.5 mg PO QHS 10/25/18 Latanoprost 0.005% [Xalatan 1 drp OPHTHALMIC (EYE) HS 12/03/18 Opthalmic] Levothyroxine [Synthroid] 175 mcg PO MOTUWETHFRSA 12/03/18 Nystatin Powder [Mycostatin Powder] 1 applic TOPICAL BID 12/03/18 Bisacodyl [Dulcolax] 10 mg PO DAILY PRN tab 01/18/19 Mineral Oil/Petrolatum,White 1 applic TOPICAL QHS jar 01/18/19 [Eucerin] Nutritional Supplement [Juice - 1 packet PO BIDCM #60 packet 01/18/19 ORANGE FLAVOR] Pantoprazole Sodium [Protonix] 40 mg PO DAILY #30 tab 01/18/19 Senna [Senokot] 2 tab PO BID tab 01/18/19 buPROPion SR [Wellbutrin SR (150mg 150 mg PO BID #60 tablet.sa 01/18/19 tablets)] hydrOXYzine pamoate capsule 50 mg PO 4X/DAY PRN PRN #120 cap 01/18/19 [Vistaril pamoate capsule] Rifampin [Rifadin] 300 mg PO BID #14 cap 01/25/19 Insulin NPH/Reg 70/30 [Novolin 50 units SUBCUT BIDAC 01/03/20 70/30] Lactobacillus Acidophilus/Fos 1 ea PO BID #30 tab 01/31/20 [Acidophilus Probiotic Tablet] Maternal Family History: Family History (Last Reviewed 03/19/20 @ 11:19 by Basilia Quiros) Mother Lung cancer Anxiety Arthritis Depression (emotion) Diabetes Sister CVA (cerebral vascular accident) Anxiety Asthma Depression (emotion) Heart disease Aunt Arthritis Depression (emotion) Diabetes Daughter Cancer Grandmother Diabetes Grandfather Heart disease Psychiatric care CVA (cerebral vascular accident) Father COPD (chronic obstructive pulmonary disease) Family History: No pertinent history Paternal Family History: Family History (Last Reviewed 03/19/20 @ 11:19 by Basilia Quiros) Mother Lung cancer Anxiety Arthritis Depression (emotion) Diabetes Sister CVA (cerebral vascular accident) Anxiety Asthma Depression (emotion) Heart disease Aunt Arthritis Depression (emotion) Diabetes Daughter Cancer Grandmother Diabetes Grandfather Heart disease Psychiatric care CVA (cerebral vascular accident) Father COPD (chronic obstructive pulmonary disease) Family History: No pertinent history Smoking Status: Former smoker Physical Exam Vital Signs Temp Pulse Resp BP 98.2 F 83 18 136/77 H 04/21/20 13:51 04/21/20 13:51 04/21/20 13:51 04/21/20 13:51 Assessment/Plan The patient appears to be tolerating hyperbaric oxygen therapy well, which will be continued as per the patient's medical plan. Treatment Course Number Number of HBO Treatments 30 Ordered Treatment Course Number 1 Treatment # 6 Chamber # 1 Chamber Type Monoplace Other - Detail Compromised/Failed Flap/Graft Yes (specify site in comment) Treatment Plan ALEM (Atmospheric Absolute) 2.0 Number of Minutes 90 Number of Air Breaks 0
[2020-04-22 13:00] LABS: Bedside Glucose 139 mg/dL (70-110)
[2020-04-22 17:16] VITALS: BP 122/57; BP 136/69; PULSE 64; PULSE 71; RESP 18; TEMP 36.2; TEMP 36.8
[2020-04-23 14:45] LABS: Bedside Glucose 265 mg/dL (70-110)
[2020-04-23 14:45] LABS: Bedside Glucose 269 mg/dL (70-110)
[2020-04-24 10:40] LABS: Bedside Glucose 177 mg/dL (70-110)
[2020-04-24 13:06] LABS: Bedside Glucose 143 mg/dL (70-110)
[2020-04-24 13:20] VITALS: BP 129/39; BP 155/42; PULSE 64; PULSE 65; RESP 18; TEMP 35.6; TEMP 36.5
--- NOTE | 2020-04-24 16:54 | PCM.HBO.PN ---
History of Present Illness Date of Service: 04/24/20 Presenting Chief Complaint: Nonhealing recurrent hidradenitis ulcer bilateral perianal area with skin graft compromise. CHRISS VERA is a 75 year old currently undergoing hyperbaric oxygen therapy for compromised skin graft. She has a nonhealing hidradenitis bilateral perineal that had a skin graft placed that became compromised after surgery on January 302019. Progress: Today is the 6th treatment of hyperbaric oxygen therapy for the patient. The patient is scheduled for 30 treatments total. Tolerance of hyperbaric oxygen therapy: Hyperbaric oxygen treatment was provided as per the facility's protocol at 2.0 ALEM in 100% oxygen for 90 minutes without air breaks. The patient tolerated hyperbaric oxygen well, without complications or complaints. Upon emergence of the hyperbaric chamber, the patient's vital signs remained stable. She was discharged in good condition. 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) Ulcer of perianal area with fat layer exposed (Chronic) nonhealing hidradenitis ulcer bilateral perianal areas Atherosclerosis of coronary artery of [place] heart without angina pectoris (Chronic) Essential hypertension (Chronic) Anemia (Chronic) Asthma (Chronic) Chronic pneumonia (Chronic) Hyperlipidemia (Chronic) Type 2 diabetes mellitus (Chronic) Hypothyroidism (Chronic) COPD (chronic obstructive pulmonary disease) (Chronic) Allergies/Adverse Reactions: Allergies adhesive tape Allergy (Unknown, Verified 03/19/20 11:15) Other Severe itching azithromycin [From Zithromax] Allergy (Unknown, Verified 03/19/20 11:15) Shortness of breath Patient stated she also breaks out in a rash cephalexin [From Keflex] Allergy (Unknown, Verified 03/19/20 11:15) Shortness of breath Patient stated she also breaks out in a rash Home Medications: Ambulatory Orders Medication Instructions Recorded atorvastatin 80 mg tablet 80 mg PO DAILY 10/25/18 bimatoprost 0.01 % eye drops 1 drp OPHTHALMIC QPM 10/25/18 citalopram 20 mg tablet 20 mg PO DAILY 10/25/18 furosemide 40 mg tablet 40 mg PO DAILY 10/25/18 metformin 500 mg tablet 500 mg PO BID 10/25/18 polyethylene glycol 3350 17 gram 17 g PO DAILY PRN 10/25/18 oral powder packet potassium chloride 20 mEq oral 20 meq PO DAILY 10/25/18 packet pumpkin seed extract-soy germ 300 1 cap PO PRN PRN cap 10/25/18 mg capsule ropinirole 0.5 mg tablet 0.5 mg PO QHS 10/25/18 Latanoprost 0.005% [Xalatan 1 drp OPHTHALMIC (EYE) HS 12/03/18 Opthalmic] Levothyroxine [Synthroid] 175 mcg PO MOTUWETHFRSA 12/03/18 Nystatin Powder [Mycostatin Powder] 1 applic TOPICAL BID 12/03/18 Bisacodyl [Dulcolax] 10 mg PO DAILY PRN tab 01/18/19 Mineral Oil/Petrolatum,White 1 applic TOPICAL QHS jar 01/18/19 [Eucerin] Nutritional Supplement [Juice - 1 packet PO BIDCM #60 packet 01/18/19 ORANGE FLAVOR] Pantoprazole Sodium [Protonix] 40 mg PO DAILY #30 tab 01/18/19 Senna [Senokot] 2 tab PO BID tab 01/18/19 buPROPion SR [Wellbutrin SR (150mg 150 mg PO BID #60 tablet.sa 01/18/19 tablets)] hydrOXYzine pamoate capsule 50 mg PO 4X/DAY PRN PRN #120 cap 01/18/19 [Vistaril pamoate capsule] Rifampin [Rifadin] 300 mg PO BID #14 cap 01/25/19 Insulin NPH/Reg 70/30 [Novolin 50 units SUBCUT BIDAC 01/03/20 70/30] Lactobacillus Acidophilus/Fos 1 ea PO BID #30 tab 01/31/20 [Acidophilus Probiotic Tablet] Maternal Family History: Family History (Last Reviewed 03/19/20 @ 11:19 by Basilia Quiros) Mother Lung cancer Anxiety Arthritis Depression (emotion) Diabetes Sister CVA (cerebral vascular accident) Anxiety Asthma Depression (emotion) Heart disease Aunt Arthritis Depression (emotion) Diabetes Daughter Cancer Grandmother Diabetes Grandfather Heart disease Psychiatric care CVA (cerebral vascular accident) Father COPD (chronic obstructive pulmonary disease) Family History: No pertinent history Paternal Family History: Family History (Last Reviewed 03/19/20 @ 11:19 by Basilia Quiros) Mother Lung cancer Anxiety Arthritis Depression (emotion) Diabetes Sister CVA (cerebral vascular accident) Anxiety Asthma Depression (emotion) Heart disease Aunt Arthritis Depression (emotion) Diabetes Daughter Cancer Grandmother Diabetes Grandfather Heart disease Psychiatric care CVA (cerebral vascular accident) Father COPD (chronic obstructive pulmonary disease) Family History: No pertinent history Smoking Status: Former smoker Tobacco Use: Non-smoker Alcohol: None Drugs: None Physical Exam Vital Signs Temp Pulse Resp BP 96.1 F L 65 18 129/39 H 04/24/20 13:20 04/24/20 13:20 04/24/20 13:20 04/24/20 13:20 General: Alert, Oriented x3, Cooperative, No apparent distress Psych/Mental Status: Normal Affect, Appropriate Assessment/Plan Active Problems (Last Reviewed 03/19/20 @ 11:19 by Basilia Quiros) Skin graft (allograft) (autograft) failure (Chronic) Partial loss of skin graft (Acute) Hidradenitis suppurativa of anus (Chronic) Chronic ulcer of sacral region with fat layer exposed (Chronic) Ulcer of perianal area with fat layer exposed (Chronic) nonhealing hidradenitis ulcer bilateral perianal areas The patient appears to be tolerating hyperbaric oxygen therapy well, which will be continued as per the patient's medical plan. Treatment Course Number Number of HBO Treatments 30 Ordered Treatment Course Number 1 Treatment # 8 Chamber # 1 Chamber Type Monoplace Other - Detail Compromised/Failed Flap/Graft Yes (specify site in comment) Treatment Plan ALEM (Atmospheric Absolute) 2 Number of Minutes 90 Number of Air Breaks 0
[2020-04-27 10:46] LABS: Bedside Glucose 151 mg/dL (70-110)
--- NOTE | 2020-04-27 11:12 | PCM.HBO.PN ---
History of Present Illness Date of Service: 04/27/20 Presenting Chief Complaint: Nonhealing recurrent hidradenitis ulcer bilateral perianal area with skin graft compromise. CHRISS VERA is a 75 year old currently undergoing hyperbaric oxygen therapy for compromised skin graft. She has a nonhealing hidradenitis bilateral perineal that had a skin graft placed that became compromised after surgery on January 302019. Progress: Today is the 9th treatment of hyperbaric oxygen therapy for the patient. The patient is scheduled for 30 treatments total. Tolerance of hyperbaric oxygen therapy: Hyperbaric oxygen treatment was provided as per the facility's protocol at 2.0 ALEM in 100% oxygen for 90 minutes without air breaks. The patient tolerated hyperbaric oxygen well, without complications or complaints. Upon emergence of the hyperbaric chamber, the patient's vital signs remained stable. She was discharged in good condition. 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) Ulcer of perianal area with fat layer exposed (Chronic) nonhealing hidradenitis ulcer bilateral perianal areas Atherosclerosis of coronary artery of [place] heart without angina pectoris (Chronic) Essential hypertension (Chronic) Anemia (Chronic) Asthma (Chronic) Chronic pneumonia (Chronic) Hyperlipidemia (Chronic) Type 2 diabetes mellitus (Chronic) Hypothyroidism (Chronic) COPD (chronic obstructive pulmonary disease) (Chronic) Allergies/Adverse Reactions: Allergies adhesive tape Allergy (Unknown, Verified 03/19/20 11:15) Other Severe itching azithromycin [From Zithromax] Allergy (Unknown, Verified 03/19/20 11:15) Shortness of breath Patient stated she also breaks out in a rash cephalexin [From Keflex] Allergy (Unknown, Verified 03/19/20 11:15) Shortness of breath Patient stated she also breaks out in a rash Home Medications: Ambulatory Orders Medication Instructions Recorded atorvastatin 80 mg tablet 80 mg PO DAILY 10/25/18 bimatoprost 0.01 % eye drops 1 drp OPHTHALMIC QPM 10/25/18 citalopram 20 mg tablet 20 mg PO DAILY 10/25/18 furosemide 40 mg tablet 40 mg PO DAILY 10/25/18 metformin 500 mg tablet 500 mg PO BID 10/25/18 polyethylene glycol 3350 17 gram 17 g PO DAILY PRN 10/25/18 oral powder packet potassium chloride 20 mEq oral 20 meq PO DAILY 10/25/18 packet pumpkin seed extract-soy germ 300 1 cap PO PRN PRN cap 10/25/18 mg capsule ropinirole 0.5 mg tablet 0.5 mg PO QHS 10/25/18 Latanoprost 0.005% [Xalatan 1 drp OPHTHALMIC (EYE) HS 12/03/18 Opthalmic] Levothyroxine [Synthroid] 175 mcg PO MOTUWETHFRSA 12/03/18 Nystatin Powder [Mycostatin Powder] 1 applic TOPICAL BID 12/03/18 Bisacodyl [Dulcolax] 10 mg PO DAILY PRN tab 01/18/19 Mineral Oil/Petrolatum,White 1 applic TOPICAL QHS jar 01/18/19 [Eucerin] Nutritional Supplement [Juice - 1 packet PO BIDCM #60 packet 01/18/19 ORANGE FLAVOR] Pantoprazole Sodium [Protonix] 40 mg PO DAILY #30 tab 01/18/19 Senna [Senokot] 2 tab PO BID tab 01/18/19 buPROPion SR [Wellbutrin SR (150mg 150 mg PO BID #60 tablet.sa 01/18/19 tablets)] hydrOXYzine pamoate capsule 50 mg PO 4X/DAY PRN PRN #120 cap 01/18/19 [Vistaril pamoate capsule] Rifampin [Rifadin] 300 mg PO BID #14 cap 01/25/19 Insulin NPH/Reg 70/30 [Novolin 50 units SUBCUT BIDAC 01/03/20 70/30] Lactobacillus Acidophilus/Fos 1 ea PO BID #30 tab 01/31/20 [Acidophilus Probiotic Tablet] Maternal Family History: Family History (Last Reviewed 03/19/20 @ 11:19 by Basilia Quiros) Mother Lung cancer Anxiety Arthritis Depression (emotion) Diabetes Sister CVA (cerebral vascular accident) Anxiety Asthma Depression (emotion) Heart disease Aunt Arthritis Depression (emotion) Diabetes Daughter Cancer Grandmother Diabetes Grandfather Heart disease Psychiatric care CVA (cerebral vascular accident) Father COPD (chronic obstructive pulmonary disease) Family History: No pertinent history Paternal Family History: Family History (Last Reviewed 03/19/20 @ 11:19 by Basilia Quiros) Mother Lung cancer Anxiety Arthritis Depression (emotion) Diabetes Sister CVA (cerebral vascular accident) Anxiety Asthma Depression (emotion) Heart disease Aunt Arthritis Depression (emotion) Diabetes Daughter Cancer Grandmother Diabetes Grandfather Heart disease Psychiatric care CVA (cerebral vascular accident) Father COPD (chronic obstructive pulmonary disease) Family History: No pertinent history Smoking Status: Former smoker Tobacco Use: Non-smoker Alcohol: None Drugs: None Physical Exam Vital Signs Temp Pulse Resp BP 96.1 F L 65 18 129/39 H 04/24/20 13:20 04/24/20 13:20 04/24/20 13:20 04/24/20 13:20 General: Alert, Oriented x3, Cooperative, No apparent distress HEENT: Atraumatic, TM's Clear Lungs: Clear to auscultation, Normal air movement Cardiovascular: Regular rate, Regular Rhythm Psych/Mental Status: Normal Affect, Appropriate, Alert and oriented to time, place, person, mood and affect Assessment/Plan Treatment Course Number Number of HBO Treatments 30 Ordered Treatment Course Number 1 Treatment # 9 Chamber # 1 Chamber Type Monoplace Other - Detail Compromised/Failed Flap/Graft Yes (specify site in comment) Treatment Plan ALEM (Atmospheric Absolute) 2 Number of Minutes 90 Number of Air Breaks 0
[2020-04-27 11:19] VITALS: BP 135/58; BP 140/55; PULSE 63; PULSE 73; RESP 16; RESP 18; TEMP 36.3; TEMP 36.4
[2020-04-27 13:01] LABS: Bedside Glucose 127 mg/dL (70-110)
[2020-04-28 10:45] LABS: Bedside Glucose 170 mg/dL (70-110)
[2020-04-28 13:10] LABS: Bedside Glucose 217 mg/dL (70-110)
--- NOTE | 2020-04-28 13:20 | PCM.HBO.PN ---
History of Present Illness Date of Service: 04/28/20 Presenting Chief Complaint: Nonhealing recurrent hidradenitis ulcer bilateral perianal area with skin graft compromise. CHRISS VERA is a 75 year old currently undergoing hyperbaric oxygen therapy for compromised skin graft. She has a nonhealing hidradenitis bilateral perineal that had a skin graft placed that became compromised after surgery on January 302019. Progress: Today is the 10th treatment of hyperbaric oxygen therapy for the patient. The patient is scheduled for 30 treatments total. Tolerance of hyperbaric oxygen therapy: Hyperbaric oxygen treatment was provided as per the facility's protocol at 2.0 ALEM in 100% oxygen for 90 minutes without air breaks. The patient tolerated hyperbaric oxygen well, without complications or complaints. Upon emergence of the hyperbaric chamber, the patient's vital signs remained stable. She was discharged in good condition. Pre-and post- blood sugar measurements are documented elsewhere. 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) Ulcer of perianal area with fat layer exposed (Chronic) nonhealing hidradenitis ulcer bilateral perianal areas Atherosclerosis of coronary artery of [place] heart without angina pectoris (Chronic) Essential hypertension (Chronic) Anemia (Chronic) Asthma (Chronic) Chronic pneumonia (Chronic) Hyperlipidemia (Chronic) Type 2 diabetes mellitus (Chronic) Hypothyroidism (Chronic) COPD (chronic obstructive pulmonary disease) (Chronic) Allergies/Adverse Reactions: Allergies adhesive tape Allergy (Unknown, Verified 03/19/20 11:15) Other Severe itching azithromycin [From Zithromax] Allergy (Unknown, Verified 03/19/20 11:15) Shortness of breath Patient stated she also breaks out in a rash cephalexin [From Keflex] Allergy (Unknown, Verified 03/19/20 11:15) Shortness of breath Patient stated she also breaks out in a rash Home Medications: Ambulatory Orders Medication Instructions Recorded atorvastatin 80 mg tablet 80 mg PO DAILY 10/25/18 bimatoprost 0.01 % eye drops 1 drp OPHTHALMIC QPM 10/25/18 citalopram 20 mg tablet 20 mg PO DAILY 10/25/18 furosemide 40 mg tablet 40 mg PO DAILY 10/25/18 metformin 500 mg tablet 500 mg PO BID 10/25/18 polyethylene glycol 3350 17 gram 17 g PO DAILY PRN 10/25/18 oral powder packet potassium chloride 20 mEq oral 20 meq PO DAILY 10/25/18 packet pumpkin seed extract-soy germ 300 1 cap PO PRN PRN cap 10/25/18 mg capsule ropinirole 0.5 mg tablet 0.5 mg PO QHS 10/25/18 Latanoprost 0.005% [Xalatan 1 drp OPHTHALMIC (EYE) HS 12/03/18 Opthalmic] Levothyroxine [Synthroid] 175 mcg PO MOTUWETHFRSA 12/03/18 Nystatin Powder [Mycostatin Powder] 1 applic TOPICAL BID 12/03/18 Bisacodyl [Dulcolax] 10 mg PO DAILY PRN tab 01/18/19 Mineral Oil/Petrolatum,White 1 applic TOPICAL QHS jar 01/18/19 [Eucerin] Nutritional Supplement [Juice - 1 packet PO BIDCM #60 packet 01/18/19 ORANGE FLAVOR] Pantoprazole Sodium [Protonix] 40 mg PO DAILY #30 tab 01/18/19 Senna [Senokot] 2 tab PO BID tab 01/18/19 buPROPion SR [Wellbutrin SR (150mg 150 mg PO BID #60 tablet.sa 01/18/19 tablets)] hydrOXYzine pamoate capsule 50 mg PO 4X/DAY PRN PRN #120 cap 01/18/19 [Vistaril pamoate capsule] Rifampin [Rifadin] 300 mg PO BID #14 cap 01/25/19 Insulin NPH/Reg 70/30 [Novolin 50 units SUBCUT BIDAC 01/03/20 70/30] Lactobacillus Acidophilus/Fos 1 ea PO BID #30 tab 01/31/20 [Acidophilus Probiotic Tablet] Maternal Family History: Family History (Last Reviewed 03/19/20 @ 11:19 by Basilia Quiros) Mother Lung cancer Anxiety Arthritis Depression (emotion) Diabetes Sister CVA (cerebral vascular accident) Anxiety Asthma Depression (emotion) Heart disease Aunt Arthritis Depression (emotion) Diabetes Daughter Cancer Grandmother Diabetes Grandfather Heart disease Psychiatric care CVA (cerebral vascular accident) Father COPD (chronic obstructive pulmonary disease) Family History: No pertinent history Paternal Family History: Family History (Last Reviewed 03/19/20 @ 11:19 by Basilia Quiros) Mother Lung cancer Anxiety Arthritis Depression (emotion) Diabetes Sister CVA (cerebral vascular accident) Anxiety Asthma Depression (emotion) Heart disease Aunt Arthritis Depression (emotion) Diabetes Daughter Cancer Grandmother Diabetes Grandfather Heart disease Psychiatric care CVA (cerebral vascular accident) Father COPD (chronic obstructive pulmonary disease) Family History: No pertinent history Smoking Status: Former smoker Tobacco Use: Non-smoker Alcohol: None Drugs: None Physical Exam Vital Signs Temp Pulse Resp BP 97.6 F L 73 18 140/55 H 04/27/20 11:19 04/27/20 11:19 04/27/20 11:19 04/27/20 11:19 General: Alert, Oriented x3, Cooperative, No apparent distress, Well developed, Well nourished HEENT: Atraumatic, PERRLA, EOMI, Normocephalic Lungs: Normal air movement Psych/Mental Status: Normal Affect, Appropriate, Alert and oriented to time, place, person, mood and affect Assessment/Plan The patient appears to be tolerating hyperbaric oxygen therapy well, which will be continued as per the patient's medical plan. Treatment Course Number Number of HBO Treatments 30 Ordered Treatment Course Number 1 Treatment # 9 Chamber # 1 Chamber Type Monoplace Other - Detail Compromised/Failed Flap/Graft Yes (specify site in comment) Treatment Plan ALEM (Atmospheric Absolute) 2 Number of Minutes 90 Number of Air Breaks 0
[2020-04-28 13:52] VITALS: BP 122/55; BP 159/64; PULSE 68; PULSE 69; RESP 16; RESP 18; TEMP 35.8; TEMP 36.3
[2020-04-29 10:16] LABS: Bedside Glucose 152 mg/dL (70-110)
[2020-04-29 12:21] LABS: Bedside Glucose 194 mg/dL (70-110)
--- NOTE | 2020-04-29 12:22 | PCM.HBO.PN ---
History of Present Illness Date of Service: 04/29/20 Presenting Chief Complaint: Nonhealing recurrent hidradenitis ulcer bilateral perianal area with skin graft compromise. CHRISS VERA is a 75 year old currently undergoing hyperbaric oxygen therapy for compromised skin graft. She has a nonhealing hidradenitis bilateral perineal that had a skin graft placed that became compromised after surgery on January 302019. Progress: Today is the 11th treatment of hyperbaric oxygen therapy for the patient. The patient is scheduled for 30 treatments total. Tolerance of hyperbaric oxygen therapy: Hyperbaric oxygen treatment was provided as per the facility's protocol at 2.0 ALEM in 100% oxygen for 90 minutes without air breaks. The patient tolerated hyperbaric oxygen well, without complications or complaints. Upon emergence of the hyperbaric chamber, the patient's vital signs remained stable. She was discharged in good condition. Pre-and post- blood sugar measurements are documented elsewhere. 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) Ulcer of perianal area with fat layer exposed (Chronic) nonhealing hidradenitis ulcer bilateral perianal areas Atherosclerosis of coronary artery of [place] heart without angina pectoris (Chronic) Essential hypertension (Chronic) Anemia (Chronic) Asthma (Chronic) Chronic pneumonia (Chronic) Hyperlipidemia (Chronic) Type 2 diabetes mellitus (Chronic) Hypothyroidism (Chronic) COPD (chronic obstructive pulmonary disease) (Chronic) Allergies/Adverse Reactions: Allergies adhesive tape Allergy (Unknown, Verified 03/19/20 11:15) Other Severe itching azithromycin [From Zithromax] Allergy (Unknown, Verified 03/19/20 11:15) Shortness of breath Patient stated she also breaks out in a rash cephalexin [From Keflex] Allergy (Unknown, Verified 03/19/20 11:15) Shortness of breath Patient stated she also breaks out in a rash Home Medications: Ambulatory Orders Medication Instructions Recorded atorvastatin 80 mg tablet 80 mg PO DAILY 10/25/18 bimatoprost 0.01 % eye drops 1 drp OPHTHALMIC QPM 10/25/18 citalopram 20 mg tablet 20 mg PO DAILY 10/25/18 furosemide 40 mg tablet 40 mg PO DAILY 10/25/18 metformin 500 mg tablet 500 mg PO BID 10/25/18 polyethylene glycol 3350 17 gram 17 g PO DAILY PRN 10/25/18 oral powder packet potassium chloride 20 mEq oral 20 meq PO DAILY 10/25/18 packet pumpkin seed extract-soy germ 300 1 cap PO PRN PRN cap 10/25/18 mg capsule ropinirole 0.5 mg tablet 0.5 mg PO QHS 10/25/18 Latanoprost 0.005% [Xalatan 1 drp OPHTHALMIC (EYE) HS 12/03/18 Opthalmic] Levothyroxine [Synthroid] 175 mcg PO MOTUWETHFRSA 12/03/18 Nystatin Powder [Mycostatin Powder] 1 applic TOPICAL BID 12/03/18 Bisacodyl [Dulcolax] 10 mg PO DAILY PRN tab 01/18/19 Mineral Oil/Petrolatum,White 1 applic TOPICAL QHS jar 01/18/19 [Eucerin] Nutritional Supplement [Juice - 1 packet PO BIDCM #60 packet 01/18/19 ORANGE FLAVOR] Pantoprazole Sodium [Protonix] 40 mg PO DAILY #30 tab 01/18/19 Senna [Senokot] 2 tab PO BID tab 01/18/19 buPROPion SR [Wellbutrin SR (150mg 150 mg PO BID #60 tablet.sa 01/18/19 tablets)] hydrOXYzine pamoate capsule 50 mg PO 4X/DAY PRN PRN #120 cap 01/18/19 [Vistaril pamoate capsule] Rifampin [Rifadin] 300 mg PO BID #14 cap 01/25/19 Insulin NPH/Reg 70/30 [Novolin 50 units SUBCUT BIDAC 01/03/20 70/30] Lactobacillus Acidophilus/Fos 1 ea PO BID #30 tab 01/31/20 [Acidophilus Probiotic Tablet] Maternal Family History: Family History (Last Reviewed 03/19/20 @ 11:19 by Basilia Quiros) Mother Lung cancer Anxiety Arthritis Depression (emotion) Diabetes Sister CVA (cerebral vascular accident) Anxiety Asthma Depression (emotion) Heart disease Aunt Arthritis Depression (emotion) Diabetes Daughter Cancer Grandmother Diabetes Grandfather Heart disease Psychiatric care CVA (cerebral vascular accident) Father COPD (chronic obstructive pulmonary disease) Family History: No pertinent history Paternal Family History: Family History (Last Reviewed 03/19/20 @ 11:19 by Basilia Quiros) Mother Lung cancer Anxiety Arthritis Depression (emotion) Diabetes Sister CVA (cerebral vascular accident) Anxiety Asthma Depression (emotion) Heart disease Aunt Arthritis Depression (emotion) Diabetes Daughter Cancer Grandmother Diabetes Grandfather Heart disease Psychiatric care CVA (cerebral vascular accident) Father COPD (chronic obstructive pulmonary disease) Family History: No pertinent history Smoking Status: Former smoker Tobacco Use: Non-smoker Alcohol: None Drugs: None Physical Exam Vital Signs Temp Pulse Resp BP 96.5 F L 69 16 122/55 H 04/28/20 13:52 04/28/20 13:52 04/28/20 13:52 04/28/20 13:52 Assessment/Plan The patient appears to be tolerating hyperbaric oxygen therapy well, which will be continued as per the patient's medical plan. Treatment Course Number Number of HBO Treatments 30 Ordered Treatment Course Number 1 Treatment # 10 Chamber # 1 Chamber Type Monoplace Other - Detail Compromised/Failed Flap/Graft Yes (specify site in comment) Treatment Plan ALEM (Atmospheric Absolute) 2 Number of Minutes 90 Number of Air Breaks 0
[2020-04-29 16:16] VITALS: BP 123/39; BP 147/57; PULSE 64; PULSE 70; RESP 16; RESP 18; TEMP 35.6; TEMP 36.8
[2020-05-01 11:00] VITALS: BP 112/53; PULSE 74; RESP 16; TEMP 37; BMI 33.5
[2020-05-01 11:25] VITALS: RESP 16; TEMP 37
[2020-05-01 11:35] LABS: Bedside Glucose 174 mg/dL (70-110)
[2020-05-01 12:03] VITALS: BP 117/62; BP 147/70; PULSE 67; PULSE 69; RESP 16; TEMP 36.6; TEMP 37
--- NOTE | 2020-05-01 13:53 | PCM.WC.PN ---
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 History of Wound: Surgery 01/31/20 - Surgical preparation bilateral perianal area with excisional debridement nonhealing recurrent hidradenitis ulcer with FTSG reconstruction from left lower back/superior gluteal area (6.25 cm2) and placement AmnioFill placental connective tissue powder (250 mg). Wound care - Silver. Calmaceptine cream or any barrier cream to the excoriated hailee wound. Operative culture - Negative. She was continued on Augmentin from a preop culture (12/23/19) that showed Streptococcus anginosus, Corynebacterium striatum, and Anaerobic cocci. Prealbumin from 02/17/20 was 13.0. Encourage nutritional supplementation with protein to help the healing process. HgbA1c from 04/11/19 was 7.4. There is compromise of the skin graft. There is complete compromise of the graft. Patient would benefit from HBO therapy to help salvage her graft. CXR was done on 02/17/20 which showed infiltrate versus fibrosis posterior aspect of the lower lobe, seen on the lateral view. If the patient has symptoms suggestive of pneumonia correlate with CT Chest. The CT Chest was done on 02/26/20, which showed chronic interstitial changes in both lung streeter without organized infiltrate, or effusion. There is a 4 mm noncalcified nodule in the superior segment of the right lower lobe on axial image 46, and a pleural-based 5 mm nodule in the right middle lobe on axial image 57. Six-month follow-up study recommended to assure stability. She saw Pulmonology which will manage her lung issues and they did clear her for HBO. Her ECG showed frequent PVC's. Her cardiology group gave a verbal clearance for HBOT. Donor site incision is dry and intact on the left lower back/upper gluteal area. Today she denies any fever and states her appetite is good. Progress of Wound: Improvement in size and appearance of ulcer. The patient denies any fever, chills, nausea, vomiting, or diarrhea. Denies any signs of infection, including increasing pain, redness, swelling, or purulent/malodorous drainage from affected area. - Physical Exam Vital Signs Temp Pulse Resp BP 98.6 F 67 16 117/62 05/01/20 12:03 05/01/20 12:03 05/01/20 12:03 05/01/20 12:03 General: Alert, Oriented x3, Cooperative, No apparent distress HEENT: Atraumatic, Normocephalic Oral: Moist Mucosa Lungs: Normal air movement Cardiovascular: Regular rate Abdomen: Soft, Non-Distended Extremities: No clubbing, No cyanosis, Capillary Refill Less than 3 Seconds, Edema Skin: Ulcer/ Wound - Perianal ulcer has good granulation present. Subcutaneous layer is exposed, no tunneling, undermining, or probing to bone. No hailee-ulcer warmth or tenderness. Mild excoriation of hailee-ulcer area., Excoriated Wound Measurements and Assessment WC - Nurse 1 - General Ulcer Measurement Start: 04/08/20 09:19 Freq: Status: Active Protocol: Activity Type Activity Date Activity User E-Sign Co-Sign Detail Recorded Client Recorded Date Recorded By Document 05/01/20 11:00 [facility] [id number] 05/01/20 11:05 [facility] 05/01/20 11:00 Wound Center Nurse 1 [Ulcer Assessment] #2- coccyx/ Graft,post op -Combined with other wound No -Current Size (cm) - Length 3.7 -Current Size (cm) - Width 1.7 -Current Size (cm) - Depth 0.2 -Total Square Cm 6.29 -Photo Taken No -Epithelialization Small 1-33% -Tunneling No -Undermining/Tunneling No -Circular Undermining No -Exudate Amt Small -Exudate Type Serosanguineous -Wound Margin Distinct, Outline Attached -Granulation Amt Large (67-100%) -Granulation Quality Red -Slough/Fibrin No -Necrosis Amt None Present (0 %) -Texture (Hailee-wound Skin Appearance) Assessed, Scarring -Moisture (Hailee-wound Skin Appearance Assessed,Dry/ ) Scaly -Color (Hailee-wound Skin Appearance) Assessed -Temperature (Hailee-wound Skin No Abnormality Appearance) (Pt Warm) -Tenderness on Palpation (Hailee-wound No Skin Appearance) -Ulcer Cleansing Rinsed/ Irrigated with Saline -Foul Odor after Cleansing No -Anesthetic Used 4% Lidocaine Solution - Nurse 2 - General Ulcer CM Notes Start: 04/08/20 09:19 Freq: Status: Active Protocol: Activity Type Activity Date Activity User E-Sign Co-Sign Detail Recorded Client Recorded Date Recorded By Document 05/01/20 11:27 [facility] [id number] 05/01/20 11:28 [facility] 05/01/20 11:27 Wound Center Nurse 2 [Procedure/Treatment] -Time 11:14 -Correct Patient Yes -Correct Side, Site, Position Yes -Correct Procedure Yes -Procedure Performed Yes -Type of Procedure Debridement -Clinical Debridement Subcutaneous -Tissue Removed Subcutaneous -Post Debridement (cm) - Length 4 -Post Debridement (cm) - Width 1.8 -Post Debridement (cm) - Depth 1.8 -Total Square (Post) (cm) 7.2 -Area of Debridement (cm) - Length 4 -Area of Debridement (cm) - Width 1.8 -Total Square (Area) (cm) 7.2 -Wound/Ulcer Outcome Not Healed -Bioengineered Tissue No -Debridement - Subq, 1st 20sq cm Yes [See Physician Procedure note for Specifics] Pain Scale: 0-10 Numeric [Pain] -Is Patient Pain Free? Yes - Nurse 3 - General Ulcer D/C NN Start: 04/08/20 09:19 Freq: Status: Active Protocol: Activity Type Activity Date Activity User E-Sign Co-Sign Detail Recorded Client Recorded Date Recorded By Document 04/28/20 13:52 DL [id number] 04/28/20 13:55 Document 05/01/20 11:25 [facility] [id number] 05/01/20 11:33 [facility] 04/28/20 05/01/20 13:52 11:25 Wound Care Nurse 3 [Wound Dressing] #2- coccyx/ Graft,post op -Ulcer Cleansing Rinsed/ Irrigated with Saline -Foul Odor after Cleansing No -Primary Dressing Applied Aquacel AG 2x2 -Primary Dressing Covered/Secured Secured with with Tape,Other -Other Covering abd -Aquacel AG 2x2 1 [Post Procedure Tolerated] -Treatment Response Procedure Tolerated Well Pain Scale: 0-10 Numeric Vital Signs [Pain] [Temperature Protocol: VS] -Is Patient Pain Free? Yes Yes -Temperature (97.8 F-99.1 F) 98.6 F -Temperature Source Temporal [Pulse] -Pulse Location Monitor [Respirations] -Respiratory Rate (12-18) 16 -Respiratory rate source Observation -Oxygen Delivery Method Room Air [Blood Pressure] -Source Monitor -Position Supine -Blood Pressure Location Right Forearm WC - Visit Discharge [Visit Discharge Information] -Discharge Condition Stable Stable -Ambulatory Status Ambulatory, Walker, Wheelchair Wheelchair -Transportation Private Auto -Accompanied by Jimmy -Medication Reconcilliation completed Yes & provided to patient/care provider -Clinical Summary of Care Provided Yes -Notes: to hbo after appt Musculoskeletal: No Tenderness to Palpation of Joints or Extremities Psych/Mental Status: Normal Affect, Appropriate Debridement Note Post-Debridement Measurements/Treatment - Nurse 2 - General Ulcer CM Notes Start: 04/08/20 09:19 Freq: Status: Active Protocol: Activity Type Activity Date Activity User E-Sign Co-Sign Detail Recorded Client Recorded Date Recorded By Document 05/01/20 11:27 [facility] [id number] 05/01/20 11:28 [facility] 05/01/20 11:27 Wound Center Nurse 2 #2- coccyx/ Graft,post op -Time 11:14 -Correct Patient Yes -Correct Side, Site, Position Yes -Correct Procedure Yes -Procedure Performed Yes -Type of Procedure Debridement -Clinical Debridement Subcutaneous -Tissue Removed Subcutaneous -Post Debridement (cm) - Length 4 -Post Debridement (cm) - Width 1.8 -Post Debridement (cm) - Depth 1.8 -Total Square (Post) (cm) 7.2 -Area of Debridement (cm) - Length 4 -Area of Debridement (cm) - Width 1.8 -Total Square (Area) (cm) 7.2 -Wound/Ulcer Outcome Not Healed -Bioengineered Tissue No -Debridement - Subq, 1st 20sq cm Yes Pain Scale: 0-10 Numeric Is Patient Pain Free? Yes - Nurse 3 - General Ulcer D/C NN Start: 04/08/20 09:19 Freq: Status: Active Protocol: Activity Type Activity Date Activity User E-Sign Co-Sign Detail Recorded Client Recorded Date Recorded By Document 04/10/20 11:42 [id number] 04/10/20 11:46 Document 04/14/20 13:41 [id number] 04/14/20 13:46 Document 04/21/20 13:51 [id number] 04/21/20 13:54 Document 04/24/20 13:20 [id number] 04/24/20 13:23 Document 04/28/20 13:52 [id number] 04/28/20 13:55 Document 05/01/20 11:25 [facility] [id number] 05/01/20 11:33 [facility] 04/10/20 04/14/20 04/21/20 11:42 13:41 13:51 Wound Care Nurse 3 #2- coccyx/ Graft,post op -Ulcer Cleansing -Foul Odor after Cleansing -Primary Dressing Applied -Primary Dressing Covered/Secured with -Other Covering -Aquacel AG 2x2 Treatment Response Pain Scale: 0-10 Numeric Vital Signs Is Patient Pain Free? Yes Yes Yes Temperature (97.8 F-99.1 F) Temperature Source Pulse Location Respiratory Rate (12-18) Respiratory rate source Oxygen Delivery Method Source Position Blood Pressure Location - Visit Discharge Discharge Condition Stable Stable Stable Ambulatory Status Ambulatory, Ambulatory, Ambulatory, Walker Walker Walker Transportation Private Auto Private Auto Private Auto Accompanied by jimmy Medication Reconcilliation completed & Yes Yes Yes provided to patient/care provider Clinical Summary of Care Provided Yes Yes Yes Notes: 04/24/20 04/28/20 05/01/20 13:20 13:52 11:25 Wound Care Nurse 3 #2- coccyx/ Graft,post op -Ulcer Cleansing Rinsed/ Irrigated with Saline -Foul Odor after Cleansing No -Primary Dressing Applied Aquacel AG 2x2 -Primary Dressing Covered/Secured with Secured with Tape,Other -Other Covering abd -Aquacel AG 2x2 1 Treatment Response Procedure Tolerated Well Pain Scale: 0-10 Numeric Vital Signs Is Patient Pain Free? Yes Yes Yes Temperature (97.8 F-99.1 F) 98.6 F Temperature Source Temporal Pulse Location Monitor Respiratory Rate (12-18) 16 Respiratory rate source Observation Oxygen Delivery Method Room Air Source Monitor Position Supine Blood Pressure Location Right Forearm WC - Visit Discharge Discharge Condition Stable Stable Stable Ambulatory Status Ambulatory, Ambulatory, Walker, Wheelchair Wheelchair Wheelchair Transportation Private Auto Private Auto Accompanied by Jimmy Medication Reconcilliation completed & No Yes provided to patient/care provider Clinical Summary of Care Provided No Yes Notes: to hbo after appt Wound debrided: Perianal ulcer Type of Debridement: Excisional debridement Anesthesia Used: 5% Lidocaine Gel Depth: in the subcutaneous layer Percentage of wound debrided: 100 Instrument Used: 5mm curette Tissue Removed: Slough and devitalized tissue Severity: Fat Layer Exposed Amount of bleeding with debridement: Mild Bleeding Controlled with: Pressure Patient tolerated procedure well Assessment/Plan Active Problems (Last Reviewed 03/19/20 @ 11:19 by Basilia Quiros) Skin graft (allograft) (autograft) failure (Chronic) Hidradenitis suppurativa of anus (Chronic) Ulcer of perianal area with fat layer exposed (Chronic) nonhealing hidradenitis ulcer bilateral perianal areas Assessment: 1. Nonhealing recurrent hidradenitis ulcer bilateral perianal area. 2. Hidradenitis. 3. Diabetes. 4. Former smoker. Plan: Perianal ulcer debridement in clinic today. Wound care - Continue Silver dressing changes daily. Place Calmaceptin cream, A&D ointment or any barrier cream 1-2 times daily to the excoriated hailee wound area. She has finished Augmentin for preop culture (12/23/19) that showed Streptococcus anginosus, Corynebacterium striatum, and Anaerobic cocci. The operative culture was negative. Patient had compromised skin graft and benefiting from HBO treatments. CXR reviewed. A followup CT Chest was recommended prior to starting HBO. The CT Chest was done on 02/26/20, which showed chronic interstitial changes in both lung streeter without organized infiltrate, or effusion. There is a 4 mm noncalcified nodule in the superior segment of the right lower lobe on axial image 46, and a pleural-based 5 mm nodule in the right middle lobe on axial image 57. Six-month follow-up study recommended to assure stability. She saw Pulmonology which will manage her lung issues but they did clear her for HBO. Her ECG showed frequent PVC's , her cardiology group gave a clearance for HBO. Her insurance has approved the HBO. Her Prealbumin was 13.0 from 02/17/20. Encourage nutritional supplementation with protein to help the healing process. HgbA1c from 04/11/19 was 7.4. Follow-up for reassessment in 2 weeks. Follow-up sooner should new or concerning symptoms arise. Note: [facility] speech recognition technology lab teacher software was used to create portions of this document. Sound-alike and misspelled words, as well as other technology lab teacher errors may be contained in the documentation. [id number]: [id number] Global Visit
[2020-05-01 14:06] LABS: Bedside Glucose 155 mg/dL (70-110)
--- NOTE | 2020-05-01 14:26 | HBO.PN.PCM_ITS ---
History of Present Illness Date of Service: 05/01/20 Presenting Chief Complaint: Nonhealing recurrent hidradenitis ulcer bilateral perianal area with skin graft compromise. CHRISS VERA is a 75 year old currently undergoing hyperbaric oxygen therapy for compromised skin graft. She has a nonhealing hidradenitis bilateral perineal that had a skin graft placed that became compromised after surgery on January 302019. Progress: Today is the 12th treatment of hyperbaric oxygen therapy for the patient. The patient is scheduled for 30 treatments total. Tolerance of hyperbaric oxygen therapy: Hyperbaric oxygen treatment was provided as per the facility's protocol at 2.0 ALEM in 100% oxygen for 90 minutes without air breaks. The patient tolerated hyperbaric oxygen well, without complications or complaints. Upon emergence of the hyperbaric chamber, the patient's vital signs remained stable. She was discharged in good condition. Pre-and post- blood sugar measurements are documented elsewhere. 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) Ulcer of perianal area with fat layer exposed (Chronic) nonhealing hidradenitis ulcer bilateral perianal areas Atherosclerosis of coronary artery of [place] heart without angina pectoris (Chronic) Essential hypertension (Chronic) Anemia (Chronic) Asthma (Chronic) Chronic pneumonia (Chronic) Hyperlipidemia (Chronic) Type 2 diabetes mellitus (Chronic) Hypothyroidism (Chronic) COPD (chronic obstructive pulmonary disease) (Chronic) Allergies/Adverse Reactions: Allergies adhesive tape Allergy (Unknown, Verified 03/19/20 11:15) Other Severe itching azithromycin [From Zithromax] Allergy (Unknown, Verified 03/19/20 11:15) Shortness of breath Patient stated she also breaks out in a rash cephalexin [From Keflex] Allergy (Unknown, Verified 03/19/20 11:15) Shortness of breath Patient stated she also breaks out in a rash Home Medications: Ambulatory Orders Medication Instructions Recorded atorvastatin 80 mg tablet 80 mg PO DAILY 10/25/18 bimatoprost 0.01 % eye drops 1 drp OPHTHALMIC QPM 10/25/18 citalopram 20 mg tablet 20 mg PO DAILY 10/25/18 furosemide 40 mg tablet 40 mg PO DAILY 10/25/18 metformin 500 mg tablet 500 mg PO BID 10/25/18 polyethylene glycol 3350 17 gram 17 g PO DAILY PRN 10/25/18 oral powder packet potassium chloride 20 mEq oral 20 meq PO DAILY 10/25/18 packet pumpkin seed extract-soy germ 300 1 cap PO PRN PRN cap 10/25/18 mg capsule ropinirole 0.5 mg tablet 0.5 mg PO QHS 10/25/18 Latanoprost 0.005% [Xalatan 1 drp OPHTHALMIC (EYE) HS 12/03/18 Opthalmic] Levothyroxine [Synthroid] 175 mcg PO [id number] 12/03/18 Nystatin Powder [Mycostatin Powder] 1 applic TOPICAL BID 12/03/18 Bisacodyl [Dulcolax] 10 mg PO DAILY PRN tab 01/18/19 Mineral Oil/Petrolatum,White 1 applic TOPICAL QHS jar 01/18/19 [Eucerin] Nutritional Supplement [Juice - 1 packet PO BIDCM #60 packet 01/18/19 ORANGE FLAVOR] Pantoprazole Sodium [Protonix] 40 mg PO DAILY #30 tab 01/18/19 Senna [Senokot] 2 tab PO BID tab 01/18/19 buPROPion SR [Wellbutrin SR (150mg 150 mg PO BID #60 tablet.sa 01/18/19 tablets)] hydrOXYzine pamoate capsule 50 mg PO 4X/DAY PRN PRN #120 cap 01/18/19 [Vistaril pamoate capsule] Rifampin [Rifadin] 300 mg PO BID #14 cap 01/25/19 Insulin NPH/Reg 70/30 [Novolin 50 units SUBCUT BIDAC 01/03/20 70/30] Lactobacillus Acidophilus/Fos 1 ea PO BID #30 tab 01/31/20 [Acidophilus Probiotic Tablet] Maternal Family History: Family History (Last Reviewed 03/19/20 @ 11:19 by Basilia Quiros) Mother Lung cancer Anxiety Arthritis Depression (emotion) Diabetes Sister CVA (cerebral vascular accident) Anxiety Asthma Depression (emotion) Heart disease Aunt Arthritis Depression (emotion) Diabetes Daughter Cancer Grandmother Diabetes Grandfather Heart disease Psychiatric care CVA (cerebral vascular accident) Father COPD (chronic obstructive pulmonary disease) Family History: No pertinent history Paternal Family History: Family History (Last Reviewed 03/19/20 @ 11:19 by Basilia Quiros) Mother Lung cancer Anxiety Arthritis Depression (emotion) Diabetes Sister CVA (cerebral vascular accident) Anxiety Asthma Depression (emotion) Heart disease Aunt Arthritis Depression (emotion) Diabetes Daughter Cancer Grandmother Diabetes Grandfather Heart disease Psychiatric care CVA (cerebral vascular accident) Father COPD (chronic obstructive pulmonary disease) Family History: No pertinent history Smoking Status: Former smoker Tobacco Use: Non-smoker Alcohol: None Drugs: None Physical Exam Vital Signs Temp Pulse Resp BP 98.6 F 67 16 117/62 05/01/20 12:03 05/01/20 12:03 05/01/20 12:03 05/01/20 12:03 General: Alert, Oriented x3, Cooperative, No apparent distress Psych/Mental Status: Normal Affect, Appropriate Assessment/Plan Active Problems (Last Reviewed 03/19/20 @ 11:19 by Basilia Quiros) Skin graft (allograft) (autograft) failure (Chronic) Hidradenitis suppurativa of anus (Chronic) Ulcer of perianal area with fat layer exposed (Chronic) nonhealing hidradenitis ulcer bilateral perianal areas The patient appears to be tolerating hyperbaric oxygen therapy well, which will be continued as per the patient's medical plan. Treatment Course Number Number of HBO Treatments 30 Ordered Treatment Course Number 1 Treatment # 12 Chamber # [id number] Chamber Type Monoplace Other - Detail Compromised/Failed Flap/Graft Yes (specify site in comment) Treatment Plan ALEM (Atmospheric Absolute) 2 Number of Minutes 90 Number of Air Breaks 0
[2020-05-04 10:55] LABS: Bedside Glucose 115 mg/dL (70-110)
[2020-05-04 11:10] LABS: Bedside Glucose 134 mg/dL (70-110)
[2020-05-04 12:09] VITALS: BP 117/76; BP 134/73; PULSE 76; PULSE 77; RESP 16; TEMP 36.4; TEMP 36.7
--- NOTE | 2020-05-04 12:10 | PCM.HBO.PN ---
History of Present Illness Date of Service: 05/04/20 Presenting Chief Complaint: Nonhealing recurrent hidradenitis ulcer bilateral perianal area with skin graft compromise. CHRISS VERA is a 75 year old currently undergoing hyperbaric oxygen therapy for compromised skin graft. She has a nonhealing hidradenitis bilateral perineal that had a skin graft placed that became compromised after surgery on January 302019. Progress: Today is the 13th treatment of hyperbaric oxygen therapy for the patient. The patient is scheduled for 30 treatments total. Tolerance of hyperbaric oxygen therapy: Hyperbaric oxygen treatment was provided as per the facility's protocol at 2.0 ALEM in 100% oxygen for 90 minutes without air breaks. The patient tolerated hyperbaric oxygen well, without complications or complaints. Upon emergence of the hyperbaric chamber, the patient's vital signs remained stable. She was discharged in good condition. Pre-and post- blood sugar measurements are documented elsewhere. 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) Ulcer of perianal area with fat layer exposed (Chronic) nonhealing hidradenitis ulcer bilateral perianal areas Atherosclerosis of coronary artery of [place] heart without angina pectoris (Chronic) Essential hypertension (Chronic) Anemia (Chronic) Asthma (Chronic) Chronic pneumonia (Chronic) Hyperlipidemia (Chronic) Type 2 diabetes mellitus (Chronic) Hypothyroidism (Chronic) COPD (chronic obstructive pulmonary disease) (Chronic) Allergies/Adverse Reactions: Allergies adhesive tape Allergy (Unknown, Verified 03/19/20 11:15) Other Severe itching azithromycin [From Zithromax] Allergy (Unknown, Verified 03/19/20 11:15) Shortness of breath Patient stated she also breaks out in a rash cephalexin [From Keflex] Allergy (Unknown, Verified 03/19/20 11:15) Shortness of breath Patient stated she also breaks out in a rash Home Medications: Ambulatory Orders Medication Instructions Recorded atorvastatin 80 mg tablet 80 mg PO DAILY 10/25/18 bimatoprost 0.01 % eye drops 1 drp OPHTHALMIC QPM 10/25/18 citalopram 20 mg tablet 20 mg PO DAILY 10/25/18 furosemide 40 mg tablet 40 mg PO DAILY 10/25/18 metformin 500 mg tablet 500 mg PO BID 10/25/18 polyethylene glycol 3350 17 gram 17 g PO DAILY PRN 10/25/18 oral powder packet potassium chloride 20 mEq oral 20 meq PO DAILY 10/25/18 packet pumpkin seed extract-soy germ 300 1 cap PO PRN PRN cap 10/25/18 mg capsule ropinirole 0.5 mg tablet 0.5 mg PO QHS 10/25/18 Latanoprost 0.005% [Xalatan 1 drp OPHTHALMIC (EYE) HS 12/03/18 Opthalmic] Levothyroxine [Synthroid] 175 mcg PO MOTUWETHFRSA 12/03/18 Nystatin Powder [Mycostatin Powder] 1 applic TOPICAL BID 12/03/18 Bisacodyl [Dulcolax] 10 mg PO DAILY PRN tab 01/18/19 Mineral Oil/Petrolatum,White 1 applic TOPICAL QHS jar 01/18/19 [Eucerin] Nutritional Supplement [Juice - 1 packet PO BIDCM #60 packet 01/18/19 ORANGE FLAVOR] Pantoprazole Sodium [Protonix] 40 mg PO DAILY #30 tab 01/18/19 Senna [Senokot] 2 tab PO BID tab 01/18/19 buPROPion SR [Wellbutrin SR (150mg 150 mg PO BID #60 tablet.sa 01/18/19 tablets)] hydrOXYzine pamoate capsule 50 mg PO 4X/DAY PRN PRN #120 cap 01/18/19 [Vistaril pamoate capsule] Rifampin [Rifadin] 300 mg PO BID #14 cap 01/25/19 Insulin NPH/Reg 70/30 [Novolin 50 units SUBCUT BIDAC 01/03/20 70/30] Lactobacillus Acidophilus/Fos 1 ea PO BID #30 tab 01/31/20 [Acidophilus Probiotic Tablet] Maternal Family History: Family History (Last Reviewed 03/19/20 @ 11:19 by Basilia Quiros) Mother Lung cancer Anxiety Arthritis Depression (emotion) Diabetes Sister CVA (cerebral vascular accident) Anxiety Asthma Depression (emotion) Heart disease Aunt Arthritis Depression (emotion) Diabetes Daughter Cancer Grandmother Diabetes Grandfather Heart disease Psychiatric care CVA (cerebral vascular accident) Father COPD (chronic obstructive pulmonary disease) Family History: No pertinent history Paternal Family History: Family History (Last Reviewed 03/19/20 @ 11:19 by Basilia Quiros) Mother Lung cancer Anxiety Arthritis Depression (emotion) Diabetes Sister CVA (cerebral vascular accident) Anxiety Asthma Depression (emotion) Heart disease Aunt Arthritis Depression (emotion) Diabetes Daughter Cancer Grandmother Diabetes Grandfather Heart disease Psychiatric care CVA (cerebral vascular accident) Father COPD (chronic obstructive pulmonary disease) Family History: No pertinent history Smoking Status: Former smoker Tobacco Use: Non-smoker Alcohol: None Drugs: None Physical Exam Vital Signs Temp Pulse Resp BP 98.6 F 67 16 117/62 05/01/20 12:03 05/01/20 12:03 05/01/20 12:03 05/01/20 12:03 General: Alert, Oriented x3, Cooperative, No apparent distress HEENT: Atraumatic, TM's Clear Lungs: Clear to auscultation, Normal air movement Cardiovascular: Regular rate, Regular Rhythm Psych/Mental Status: Normal Affect, Appropriate, Alert and oriented to time, place, person, mood and affect Assessment/Plan Active Problems (Last Reviewed 03/19/20 @ 11:19 by Basilia Quiros) Skin graft (allograft) (autograft) failure (Chronic) Hidradenitis suppurativa of anus (Chronic) Ulcer of perianal area with fat layer exposed (Chronic) nonhealing hidradenitis ulcer bilateral perianal areas Treatment Course Number Number of HBO Treatments 30 Ordered Treatment Course Number 1 Treatment # 13 Chamber # [id number] Chamber Type Monoplace Other - Detail Compromised/Failed Flap/Graft Yes (specify site in comment) Treatment Plan ALEM (Atmospheric Absolute) 2 Number of Minutes 90 Number of Air Breaks 0
[2020-05-04 13:50] LABS: Bedside Glucose 156 mg/dL (70-110)
[2020-05-05 12:10] LABS: Bedside Glucose 154 mg/dL (70-110)
[2020-05-05 12:56] LABS: Bedside Glucose 180 mg/dL (70-110)
--- NOTE | 2020-05-05 13:13 | PCM.HBO.PN ---
History of Present Illness Date of Service: 05/05/20 Presenting Chief Complaint: Nonhealing recurrent hidradenitis ulcer bilateral perianal area with skin graft compromise. CHRISS VERA is a 75 year old currently undergoing hyperbaric oxygen therapy for compromised skin graft. She has a nonhealing hidradenitis bilateral perineal that had a skin graft placed that became compromised after surgery on January 302019. Progress: Today is the 14th treatment of hyperbaric oxygen therapy for the patient. The patient is scheduled for 30 treatments total. Tolerance of hyperbaric oxygen therapy: Hyperbaric oxygen treatment was provided as per the facility's protocol at 2.0 ALEM in 100% oxygen for 90 minutes without air breaks. The patient tolerated hyperbaric oxygen well, without complications or complaints. Upon emergence of the hyperbaric chamber, the patient's vital signs remained stable. She was discharged in good condition. Pre-and post- blood sugar measurements are documented elsewhere. 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) Ulcer of perianal area with fat layer exposed (Chronic) nonhealing hidradenitis ulcer bilateral perianal areas Atherosclerosis of coronary artery of [place] heart without angina pectoris (Chronic) Essential hypertension (Chronic) Anemia (Chronic) Asthma (Chronic) Chronic pneumonia (Chronic) Hyperlipidemia (Chronic) Type 2 diabetes mellitus (Chronic) Hypothyroidism (Chronic) COPD (chronic obstructive pulmonary disease) (Chronic) Allergies/Adverse Reactions: Allergies adhesive tape Allergy (Unknown, Verified 03/19/20 11:15) Other Severe itching azithromycin [From Zithromax] Allergy (Unknown, Verified 03/19/20 11:15) Shortness of breath Patient stated she also breaks out in a rash cephalexin [From Keflex] Allergy (Unknown, Verified 03/19/20 11:15) Shortness of breath Patient stated she also breaks out in a rash Home Medications: Ambulatory Orders Medication Instructions Recorded atorvastatin 80 mg tablet 80 mg PO DAILY 10/25/18 bimatoprost 0.01 % eye drops 1 drp OPHTHALMIC QPM 10/25/18 citalopram 20 mg tablet 20 mg PO DAILY 10/25/18 furosemide 40 mg tablet 40 mg PO DAILY 10/25/18 metformin 500 mg tablet 500 mg PO BID 10/25/18 polyethylene glycol 3350 17 gram 17 g PO DAILY PRN 10/25/18 oral powder packet potassium chloride 20 mEq oral 20 meq PO DAILY 10/25/18 packet pumpkin seed extract-soy germ 300 1 cap PO PRN PRN cap 10/25/18 mg capsule ropinirole 0.5 mg tablet 0.5 mg PO QHS 10/25/18 Latanoprost 0.005% [Xalatan 1 drp OPHTHALMIC (EYE) HS 12/03/18 Opthalmic] Levothyroxine [Synthroid] 175 mcg PO MOTUWETHFRSA 12/03/18 Nystatin Powder [Mycostatin Powder] 1 applic TOPICAL BID 12/03/18 Bisacodyl [Dulcolax] 10 mg PO DAILY PRN tab 01/18/19 Mineral Oil/Petrolatum,White 1 applic TOPICAL QHS jar 01/18/19 [Eucerin] Nutritional Supplement [Juice - 1 packet PO BIDCM #60 packet 01/18/19 ORANGE FLAVOR] Pantoprazole Sodium [Protonix] 40 mg PO DAILY #30 tab 01/18/19 Senna [Senokot] 2 tab PO BID tab 01/18/19 buPROPion SR [Wellbutrin SR (150mg 150 mg PO BID #60 tablet.sa 01/18/19 tablets)] hydrOXYzine pamoate capsule 50 mg PO 4X/DAY PRN PRN #120 cap 01/18/19 [Vistaril pamoate capsule] Rifampin [Rifadin] 300 mg PO BID #14 cap 01/25/19 Insulin NPH/Reg 70/30 [Novolin 50 units SUBCUT BIDAC 01/03/20 70/30] Lactobacillus Acidophilus/Fos 1 ea PO BID #30 tab 01/31/20 [Acidophilus Probiotic Tablet] Maternal Family History: Family History (Last Reviewed 03/19/20 @ 11:19 by Basilia Quiros) Mother Lung cancer Anxiety Arthritis Depression (emotion) Diabetes Sister CVA (cerebral vascular accident) Anxiety Asthma Depression (emotion) Heart disease Aunt Arthritis Depression (emotion) Diabetes Daughter Cancer Grandmother Diabetes Grandfather Heart disease Psychiatric care CVA (cerebral vascular accident) Father COPD (chronic obstructive pulmonary disease) Family History: No pertinent history Paternal Family History: Family History (Last Reviewed 03/19/20 @ 11:19 by Basilia Quiros) Mother Lung cancer Anxiety Arthritis Depression (emotion) Diabetes Sister CVA (cerebral vascular accident) Anxiety Asthma Depression (emotion) Heart disease Aunt Arthritis Depression (emotion) Diabetes Daughter Cancer Grandmother Diabetes Grandfather Heart disease Psychiatric care CVA (cerebral vascular accident) Father COPD (chronic obstructive pulmonary disease) Family History: No pertinent history Smoking Status: Former smoker Tobacco Use: Non-smoker Alcohol: None Drugs: None Physical Exam Vital Signs Temp Pulse Resp BP 97.6 F L 76 16 117/76 05/04/20 12:05/04/20 12:09 05/04/20 12:05/04/20 12:09 General: Alert, Oriented x3, Cooperative, No apparent distress, Well developed, Well nourished HEENT: Atraumatic, PERRLA, EOMI, Normocephalic Lungs: Normal air movement Psych/Mental Status: Normal Affect, Appropriate, Alert and oriented to time, place, person, mood and affect Assessment/Plan Active Problems (Last Reviewed 03/19/20 @ 11:19 by Basilia Quiros) Skin graft (allograft) (autograft) failure (Chronic) Hidradenitis suppurativa of anus (Chronic) Ulcer of perianal area with fat layer exposed (Chronic) nonhealing hidradenitis ulcer bilateral perianal areas The patient appears to be tolerating hyperbaric oxygen therapy well, which will be continued as per the patient's medical plan. Treatment Course Number Number of HBO Treatments 30 Ordered Treatment Course Number 1 Treatment # 13 Chamber # [id number] Chamber Type Monoplace Other - Detail Compromised/Failed Flap/Graft Yes (specify site in comment) Treatment Plan ALEM (Atmospheric Absolute) 2 Number of Minutes 90 Number of Air Breaks 0
[2020-05-05 13:24] VITALS: BP 125/65; BP 131/41; PULSE 69; PULSE 74; RESP 16; TEMP 36.7; TEMP 36.9
[2020-05-06 11:00] LABS: Bedside Glucose 230 mg/dL (70-110)
--- NOTE | 2020-05-06 12:56 | PCM.HBO.PN ---
History of Present Illness Date of Service: 05/06/20 Presenting Chief Complaint: Nonhealing recurrent hidradenitis ulcer bilateral perianal area with skin graft compromise. CHRISS VERA is a 75 year old currently undergoing hyperbaric oxygen therapy for compromised skin graft. She has a nonhealing hidradenitis bilateral perineal that had a skin graft placed that became compromised after surgery on January 302019. Progress: Today is the 15th treatment of hyperbaric oxygen therapy for the patient. The patient is scheduled for 30 treatments total. Tolerance of hyperbaric oxygen therapy: Hyperbaric oxygen treatment was provided as per the facility's protocol at 2.0 ALEM in 100% oxygen for 90 minutes without air breaks. The patient tolerated hyperbaric oxygen well, without complications or complaints. Upon emergence of the hyperbaric chamber, the patient's vital signs remained stable. She was discharged in good condition. Pre-and post- blood sugar measurements are documented elsewhere. 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) Ulcer of perianal area with fat layer exposed (Chronic) nonhealing hidradenitis ulcer bilateral perianal areas Atherosclerosis of coronary artery of [place] heart without angina pectoris (Chronic) Essential hypertension (Chronic) Anemia (Chronic) Asthma (Chronic) Chronic pneumonia (Chronic) Hyperlipidemia (Chronic) Type 2 diabetes mellitus (Chronic) Hypothyroidism (Chronic) COPD (chronic obstructive pulmonary disease) (Chronic) Allergies/Adverse Reactions: Allergies adhesive tape Allergy (Unknown, Verified 03/19/20 11:15) Other Severe itching azithromycin [From Zithromax] Allergy (Unknown, Verified 03/19/20 11:15) Shortness of breath Patient stated she also breaks out in a rash cephalexin [From Keflex] Allergy (Unknown, Verified 03/19/20 11:15) Shortness of breath Patient stated she also breaks out in a rash Home Medications: Ambulatory Orders Medication Instructions Recorded atorvastatin 80 mg tablet 80 mg PO DAILY 10/25/18 bimatoprost 0.01 % eye drops 1 drp OPHTHALMIC QPM 10/25/18 citalopram 20 mg tablet 20 mg PO DAILY 10/25/18 furosemide 40 mg tablet 40 mg PO DAILY 10/25/18 metformin 500 mg tablet 500 mg PO BID 10/25/18 polyethylene glycol 3350 17 gram 17 g PO DAILY PRN 10/25/18 oral powder packet potassium chloride 20 mEq oral 20 meq PO DAILY 10/25/18 packet pumpkin seed extract-soy germ 300 1 cap PO PRN PRN cap 10/25/18 mg capsule ropinirole 0.5 mg tablet 0.5 mg PO QHS 10/25/18 Latanoprost 0.005% [Xalatan 1 drp OPHTHALMIC (EYE) HS 12/03/18 Opthalmic] Levothyroxine [Synthroid] 175 mcg PO MOTUWETHFRSA 12/03/18 Nystatin Powder [Mycostatin Powder] 1 applic TOPICAL BID 12/03/18 Bisacodyl [Dulcolax] 10 mg PO DAILY PRN tab 01/18/19 Mineral Oil/Petrolatum,White 1 applic TOPICAL QHS jar 01/18/19 [Eucerin] Nutritional Supplement [Juice - 1 packet PO BIDCM #60 packet 01/18/19 ORANGE FLAVOR] Pantoprazole Sodium [Protonix] 40 mg PO DAILY #30 tab 01/18/19 Senna [Senokot] 2 tab PO BID tab 01/18/19 buPROPion SR [Wellbutrin SR (150mg 150 mg PO BID #60 tablet.sa 01/18/19 tablets)] hydrOXYzine pamoate capsule 50 mg PO 4X/DAY PRN PRN #120 cap 01/18/19 [Vistaril pamoate capsule] Rifampin [Rifadin] 300 mg PO BID #14 cap 01/25/19 Insulin NPH/Reg 70/30 [Novolin 50 units SUBCUT BIDAC 01/03/20 70/30] Lactobacillus Acidophilus/Fos 1 ea PO BID #30 tab 01/31/20 [Acidophilus Probiotic Tablet] Maternal Family History: Family History (Last Reviewed 03/19/20 @ 11:19 by Basilia Quiros) Mother Lung cancer Anxiety Arthritis Depression (emotion) Diabetes Sister CVA (cerebral vascular accident) Anxiety Asthma Depression (emotion) Heart disease Aunt Arthritis Depression (emotion) Diabetes Daughter Cancer Grandmother Diabetes Grandfather Heart disease Psychiatric care CVA (cerebral vascular accident) Father COPD (chronic obstructive pulmonary disease) Family History: No pertinent history Paternal Family History: Family History (Last Reviewed 03/19/20 @ 11:19 by Basilia Quiros) Mother Lung cancer Anxiety Arthritis Depression (emotion) Diabetes Sister CVA (cerebral vascular accident) Anxiety Asthma Depression (emotion) Heart disease Aunt Arthritis Depression (emotion) Diabetes Daughter Cancer Grandmother Diabetes Grandfather Heart disease Psychiatric care CVA (cerebral vascular accident) Father COPD (chronic obstructive pulmonary disease) Family History: No pertinent history Smoking Status: Former smoker Tobacco Use: Non-smoker Alcohol: None Drugs: None Physical Exam Vital Signs Temp Pulse Resp BP 98.4 F 74 16 131/41 H 05/05/20 13:24 05/05/20 13:24 05/05/20 13:24 05/05/20 13:24 Assessment/Plan Active Problems (Last Reviewed 03/19/20 @ 11:19 by Basilia Quiros) Skin graft (allograft) (autograft) failure (Chronic) Hidradenitis suppurativa of anus (Chronic) Ulcer of perianal area with fat layer exposed (Chronic) nonhealing hidradenitis ulcer bilateral perianal areas The patient appears to be tolerating hyperbaric oxygen therapy well, which will be continued as per the patient's medical plan. Treatment Course Number Number of HBO Treatments 30 Ordered Treatment Course Number 1 Treatment # 14 Chamber # 1 Chamber Type Monoplace Other - Detail Compromised/Failed Flap/Graft Yes (specify site in comment) Treatment Plan ALEM (Atmospheric Absolute) 2.0 Number of Minutes 90 Number of Air Breaks 0
[2020-05-06 13:11] LABS: Bedside Glucose 205 mg/dL (70-110)
[2020-05-06 15:06] VITALS: BP 102/58; BP 134/60; PULSE 75; PULSE 77; RESP 18; TEMP 36; TEMP 36.4
[2020-05-07 13:31] VITALS: BP 129/50; BP 145/55; PULSE 71; PULSE 72; RESP 18; TEMP 35.6; TEMP 36.1
[2020-05-09 15:16] LABS: Bedside Glucose 114 mg/dL (70-110)
[2020-05-09 15:16] LABS: Bedside Glucose 149 mg/dL (70-110)
== END 2020-05-06 23:59 ==
LOC: WC 10:30
PROVIDERS: Family Provider Nurse Practitioner Family; PCP Student in an Organized Health Care Education/Training Program; Referring Provider Surgery; Visit Provider Surgery
DX: L73.2 Hidradenitis suppurativa (principal); T86.821 Skin graft (allograft) (autograft) failure; K62.6 Ulcer of anus and rectum; Y83.2 Surgical operation with anastomosis, bypass or graft as the cause of abnormal reaction of the patient, or of later complication, without mention of misadventure at the time of the procedure; Z87.891 Personal history of nicotine dependence; E11.9 Type 2 diabetes mellitus without complications; J44.9 Chronic obstructive pulmonary disease, unspecified; E78.5 Hyperlipidemia, unspecified; J45.909 Unspecified asthma, uncomplicated; I25.10 Atherosclerotic heart disease of native coronary artery without angina pectoris; I10 Essential (primary) hypertension; E03.9 Hypothyroidism, unspecified; Z79.899 Other long term (current) drug therapy; Z79.84 Long term (current) use of oral hypoglycemic drugs
CPT/HCPCS: 11042; 82962; 99183; G0277

== ENCOUNTER → 2020-05-19 10:20 | Outpatient (CLI) | payer MEDICARE, OTHER, SELFPAY ==
[2020-03-19 05:48] VITALS: BMI 33.5
[2020-05-15 10:24] VITALS: BMI 33.5
--- NOTE | 2020-05-19 15:44 | PFTCOMP_ITS ---
COMPLETE PULMONARY FUNCTION TEST INTERPRETATION Brief HPI: Patient is a 75 year old female, currently under the care of myself, who presents to [facility] for complete pulmonary function tests secondary to diagnosis of dyspnea. Respiratory therapist reports good effort and reproducible results. Patient did have difficulty completing the study including exhalation for less than 6 minutes, likely underestimating FVC. Interpretation: Forced expiration spirometry shows a moderate large airways obstructive ventilatory defect with an FEV1 of 60% predicted. There is no significant bronchodilator response by strict ATS criteria. Spirograms are of good quality and plateau slowly, indicating slowly emptying areas of the lungs. The respiratory flow volume loop shows a normal pattern. Lung volumes by body plethysmography show a normal total lung capacity at 4.25 L, 93% predicted. FRC and RV are elevated out of proportion. Lung volume measurements are consistent with air-trapping. Diffusion capacity by carbon monoxide is decreased at 50% predicted. The airway resistance is normal. No previous pulmonary function tests were available for review. Impression: Irreversible moderate large airways obstructive ventilatory defect with a symmet yoanna reduction diffusion capacity, resulting in air trapping, and a pattern consistent with COPD.
== END ==
PROVIDERS: PCP Student in an Organized Health Care Education/Training Program; Referring Provider Internal Medicine Critical Care Medicine; Visit Provider Internal Medicine Critical Care Medicine
DX: R06.00 Dyspnea, unspecified (principal)
CPT/HCPCS: 94060; 94726; 94729

== ENCOUNTER → 2020-05-20 11:59 | Outpatient (CLI) | payer MEDICARE, OTHER, SELFPAY ==
[2020-03-19 05:48] VITALS: BMI 33.5
[2020-05-15 10:24] VITALS: BMI 33.5
[2020-05-20 12:43] VITALS: PULSE 100; PULSE 102; PULSE 86; PULSE 88; PULSE 90; PULSE 96; PULSE 97; PULSE 99; O2SAT 86; O2SAT 91; O2SAT 92; O2SAT 93; O2SAT 94; O2SAT 95
--- NOTE | 2020-05-20 14:19 | PCM.PSN.6M ---
PSN 6 Minute Walk Test - 6 Minute Walk Test 6 Minute Walk Test: 6 Minute Walk Test PSN:6-Minute Walk Test Start: 05/20/20 12:42 Freq: Status: Active Protocol: [id number] Document 05/20/20 12:43 [facility] (Rec: 05/20/20 12:52 [facility] [id number]) 6 Minute Walk Test Date Performed 05/20/20 Time Performed 12:30 Height 5 ft 3 in Weight: 89.811 kg Weight in Pounds 198.[address]: Luis Roberson Assistive device used: Walker Pre-test Oxygen Delivery Method Room Air Pulse Ox (%) 86 Pulse Rate (60-100 beats/min) 86 Dyspnea Arlen Scale (0-10) 1 1st minute Oxygen Flow Rate (L/min) (L/min) 2 Oxygen Delivery Method Nasal Cannula Pulse Ox (%) 92 Pulse Rate (60-100 beats/min) 90 Dyspnea Arlen Scale (0-10) 2 Number of Rests Taken 0 2nd minute Oxygen Flow Rate (L/min) (L/min) 2 Oxygen Delivery Method Nasal Cannula Pulse Ox (%) 94 Pulse Rate (60-100 beats/min) 97 Dyspnea Arlen Scale (0-10) 3 Number of Rests Taken 1 Reported Symptoms Increased Work of Breathing 3rd minute Oxygen Flow Rate (L/min) (L/min) 2 Oxygen Delivery Method Nasal Cannula Pulse Ox (%) 93 Pulse Rate (60-100 beats/min) 102 H Dyspnea Arlen Scale (0-10) 4 Number of Rests Taken 1 Reported Symptoms Increased Work of Breathing 4th minute Oxygen Flow Rate (L/min) (L/min) 2 Oxygen Delivery Method Nasal Cannula Pulse Ox (%) 93 Pulse Rate (60-100 beats/min) 100 Dyspnea Arlen Scale (0-10) 4 Number of Rests Taken 0 Reported Symptoms Increased Work of Breathing 5th minute Oxygen Flow Rate (L/min) (L/min) 2 Oxygen Delivery Method Nasal Cannula Pulse Ox (%) 92 Pulse Rate (60-100 beats/min) 99 Dyspnea Arlen Scale (0-10) 5 Number of Rests Taken 0 Reported Symptoms Increased Work of Breathing 6th minute Oxygen Flow Rate (L/min) (L/min) 2 Oxygen Delivery Method Nasal Cannula Pulse Ox (%) 91 Pulse Rate (60-100 beats/min) 96 Dyspnea Arlen Scale (0-10) 5 Number of Rests Taken 0 Reported Symptoms Increased Work of Breathing Post-test Oxygen Flow Rate (L/min) (L/min) 2 Oxygen Delivery Method Nasal Cannula Pulse Ox (%) 95 Pulse Rate (60-100 beats/min) 88 Dyspnea Arlen Scale (0-10) 1 Full Laps Walked 4 Partial Lap, Number of Tiles Walked 10 Total Distance Walked (ft) 246 - Interpretation Interpretation: The patient was noted to be 86% on room air that improved to 92% with 2 L nasal cannula. The patient was then ambulated 246 feet over the course of 6 minutes with the assistance of a walker and 2 breaks. No significant tachycardia was noted. These findings are consistent with a respiratory limitation exercise tolerance. - Recommendations Recommendations: The patient should be placed on 2 L nasal cannula at all times.
== END ==
PROVIDERS: PCP Student in an Organized Health Care Education/Training Program; Referring Provider Internal Medicine Critical Care Medicine; Visit Provider Internal Medicine Critical Care Medicine
DX: R06.00 Dyspnea, unspecified (principal)
CPT/HCPCS: 94618

== ENCOUNTER 2020-06-01 10:30 | Outpatient (RCR) | payer MEDICARE, OTHER, SELFPAY ==
[2020-05-01 11:00] VITALS: BMI 33.5
[2020-05-07 00:13] VITALS: BP 102/58; PULSE 77; RESP 18; TEMP 36
[2020-05-07 11:47] VITALS: BP 129/50; BP 145/55; PULSE 71; PULSE 72; RESP 18; RESP 20; TEMP 35.6
--- NOTE | 2020-05-07 13:15 | HBO.PN.PCM_ITS ---
History of Present Illness Date of Service: 05/07/20 Presenting Chief Complaint: Nonhealing recurrent hidradenitis ulcer bilateral perianal area with skin graft compromise. CHRISS VERA is a 75 year old currently undergoing hyperbaric oxygen therapy for Nonhealing recurrent hidradenitis ulcer bilateral perianal area with skin graft compromise. Progress: Today represents the 16th session of 30 planned sessions. Tolerance of hyperbaric oxygen therapy: Hyperbaric oxygen treatment was provided as per the facility's protocol at 2.0 ALEM in 100% oxygen for 90 minutes without air breaks. The patient tolerated hyperbaric oxygen well, without complications or complaints. Upon emergence of the hyperbaric chamber, the patient's vital signs remained stable. She was discharged in good condition. Pre-and post- blood sugar measurements are documented elsewhere. 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) Ulcer of perianal area with fat layer exposed (Chronic) nonhealing hidradenitis ulcer bilateral perianal areas Atherosclerosis of coronary artery of [place] heart without angina pectoris (Chronic) Essential hypertension (Chronic) Anemia (Chronic) Asthma (Chronic) Chronic pneumonia (Chronic) Hyperlipidemia (Chronic) Type 2 diabetes mellitus (Chronic) Hypothyroidism (Chronic) COPD (chronic obstructive pulmonary disease) (Chronic) Allergies/Adverse Reactions: Allergies adhesive tape Allergy (Unknown, Verified 03/19/20 11:15) Other Severe itching azithromycin [From Zithromax] Allergy (Unknown, Verified 03/19/20 11:15) Shortness of breath Patient stated she also breaks out in a rash cephalexin [From Keflex] Allergy (Unknown, Verified 03/19/20 11:15) Shortness of breath Patient stated she also breaks out in a rash Home Medications: Ambulatory Orders Medication Instructions Recorded atorvastatin 80 mg tablet 80 mg PO DAILY 10/25/18 bimatoprost 0.01 % eye drops 1 drp OPHTHALMIC QPM 10/25/18 citalopram 20 mg tablet 20 mg PO DAILY 10/25/18 furosemide 40 mg tablet 40 mg PO DAILY 10/25/18 metformin 500 mg tablet 500 mg PO BID 10/25/18 polyethylene glycol 3350 17 gram 17 g PO DAILY PRN 10/25/18 oral powder packet potassium chloride 20 mEq oral 20 meq PO DAILY 10/25/18 packet pumpkin seed extract-soy germ 300 1 cap PO PRN PRN cap 10/25/18 mg capsule ropinirole 0.5 mg tablet 0.5 mg PO QHS 10/25/18 Latanoprost 0.005% [Xalatan 1 drp OPHTHALMIC (EYE) HS 12/03/18 Opthalmic] Levothyroxine [Synthroid] 175 mcg PO MOTUWETHFRSA 12/03/18 Nystatin Powder [Mycostatin Powder] 1 applic TOPICAL BID 12/03/18 Bisacodyl [Dulcolax] 10 mg PO DAILY PRN tab 01/18/19 Mineral Oil/Petrolatum,White 1 applic TOPICAL QHS jar 01/18/19 [Eucerin] Nutritional Supplement [Juice - 1 packet PO BIDCM #60 packet 01/18/19 ORANGE FLAVOR] Pantoprazole Sodium [Protonix] 40 mg PO DAILY #30 tab 01/18/19 Senna [Senokot] 2 tab PO BID tab 01/18/19 buPROPion SR [Wellbutrin SR (150mg 150 mg PO BID #60 tablet.sa 01/18/19 tablets)] hydrOXYzine pamoate capsule 50 mg PO 4X/DAY PRN PRN #120 cap 01/18/19 [Vistaril pamoate capsule] Rifampin [Rifadin] 300 mg PO BID #14 cap 01/25/19 Insulin NPH/Reg 70/30 [Novolin 50 units SUBCUT BIDAC 01/03/20 70/30] Lactobacillus Acidophilus/Fos 1 ea PO BID #30 tab 01/31/20 [Acidophilus Probiotic Tablet] Maternal Family History: Family History (Last Reviewed 03/19/20 @ 11:19 by Basilia Quiros) Mother Lung cancer Anxiety Arthritis Depression (emotion) Diabetes Sister CVA (cerebral vascular accident) Anxiety Asthma Depression (emotion) Heart disease Aunt Arthritis Depression (emotion) Diabetes Daughter Cancer Grandmother Diabetes Grandfather Heart disease Psychiatric care CVA (cerebral vascular accident) Father COPD (chronic obstructive pulmonary disease) Family History: No pertinent history Paternal Family History: Family History (Last Reviewed 03/19/20 @ 11:19 by Basilia Quiros) Mother Lung cancer Anxiety Arthritis Depression (emotion) Diabetes Sister CVA (cerebral vascular accident) Anxiety Asthma Depression (emotion) Heart disease Aunt Arthritis Depression (emotion) Diabetes Daughter Cancer Grandmother Diabetes Grandfather Heart disease Psychiatric care CVA (cerebral vascular accident) Father COPD (chronic obstructive pulmonary disease) Family History: No pertinent history Smoking Status: Former smoker Tobacco Use: Non-smoker Physical Exam Vital Signs Temp Pulse Resp BP 96.1 F L 71 20 H 129/50 H 05/07/20 11:47 05/07/20 11:47 05/07/20 11:47 05/07/20 11:47 General: Alert, Oriented x3, Cooperative, No apparent distress HEENT: Atraumatic, PERRLA, Normocephalic, TM's Clear Lungs: Normal air movement Psych/Mental Status: Normal Affect Assessment/Plan The patient appears to be tolerating hyperbaric oxygen therapy well which will be continued as per the patient's medical plan. Treatment Course Number Number of HBO Treatments 30 Ordered Treatment Course Number 1 Treatment # 16 Chamber Type Monoplace Diabetes - Detail Diabetes Diabetes Type II Diabetes Control Uncontrolled Other - Detail Compromised/Failed Flap/Graft Yes (specify site in comment) Treatment Plan ALEM (Atmospheric Absolute) 2 Number of Minutes 90 Number of Air Breaks 0 HBO supervision.
[2020-05-07 16:01] LABS: Bedside Glucose 187 mg/dL (70-110)
[2020-05-07 16:01] LABS: Bedside Glucose 196 mg/dL (70-110)
[2020-05-08 12:56] LABS: Bedside Glucose 217 mg/dL (70-110)
[2020-05-08 13:05] VITALS: BP 123/46; BP 136/52; PULSE 68; RESP 16; RESP 18; TEMP 35.8; TEMP 36.2
--- NOTE | 2020-05-08 15:10 | HBO.PN.PCM_ITS ---
History of Present Illness Date of Service: 05/08/20 Presenting Chief Complaint: Nonhealing recurrent hidradenitis ulcer bilateral perianal area with skin graft compromise. CHRISS VERA is a 75 year old currently undergoing hyperbaric oxygen therapy for Nonhealing recurrent hidradenitis ulcer bilateral perianal area with skin graft compromise. Progress: Today represents the 17th session of 30 planned sessions. Tolerance of hyperbaric oxygen therapy: Hyperbaric oxygen treatment was provided as per the facility's protocol at 2.0 ALEM in 100% oxygen for 90 minutes without air breaks. The patient tolerated hyperbaric oxygen well, without complications or complaints. Upon emergence of the hyperbaric chamber, the patient's vital signs remained stable. She was discharged in good condition. Pre-and post- blood sugar measurements are documented in the clinical panel. 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) Ulcer of perianal area with fat layer exposed (Chronic) nonhealing hidradenitis ulcer bilateral perianal areas Atherosclerosis of coronary artery of [place] heart without angina pectoris (Chronic) Essential hypertension (Chronic) Anemia (Chronic) Asthma (Chronic) Chronic pneumonia (Chronic) Hyperlipidemia (Chronic) Type 2 diabetes mellitus (Chronic) Hypothyroidism (Chronic) COPD (chronic obstructive pulmonary disease) (Chronic) Allergies/Adverse Reactions: Allergies adhesive tape Allergy (Unknown, Verified 03/19/20 11:15) Other Severe itching azithromycin [From Zithromax] Allergy (Unknown, Verified 03/19/20 11:15) Shortness of breath Patient stated she also breaks out in a rash cephalexin [From Keflex] Allergy (Unknown, Verified 03/19/20 11:15) Shortness of breath Patient stated she also breaks out in a rash Home Medications: Ambulatory Orders Medication Instructions Recorded atorvastatin 80 mg tablet 80 mg PO DAILY 10/25/18 bimatoprost 0.01 % eye drops 1 drp OPHTHALMIC QPM 10/25/18 citalopram 20 mg tablet 20 mg PO DAILY 10/25/18 furosemide 40 mg tablet 40 mg PO DAILY 10/25/18 metformin 500 mg tablet 500 mg PO BID 10/25/18 polyethylene glycol 3350 17 gram 17 g PO DAILY PRN 10/25/18 oral powder packet potassium chloride 20 mEq oral 20 meq PO DAILY 10/25/18 packet pumpkin seed extract-soy germ 300 1 cap PO PRN PRN cap 10/25/18 mg capsule ropinirole 0.5 mg tablet 0.5 mg PO QHS 10/25/18 Latanoprost 0.005% [Xalatan 1 drp OPHTHALMIC (EYE) HS 12/03/18 Opthalmic] Levothyroxine [Synthroid] 175 mcg PO MOTUWETHFRSA 12/03/18 Nystatin Powder [Mycostatin Powder] 1 applic TOPICAL BID 12/03/18 Bisacodyl [Dulcolax] 10 mg PO DAILY PRN tab 01/18/19 Mineral Oil/Petrolatum,White 1 applic TOPICAL QHS jar 01/18/19 [Eucerin] Nutritional Supplement [Juice - 1 packet PO BIDCM #60 packet 01/18/19 ORANGE FLAVOR] Pantoprazole Sodium [Protonix] 40 mg PO DAILY #30 tab 01/18/19 Senna [Senokot] 2 tab PO BID tab 01/18/19 buPROPion SR [Wellbutrin SR (150mg 150 mg PO BID #60 tablet.sa 01/18/19 tablets)] hydrOXYzine pamoate capsule 50 mg PO 4X/DAY PRN PRN #120 cap 01/18/19 [Vistaril pamoate capsule] Rifampin [Rifadin] 300 mg PO BID #14 cap 01/25/19 Insulin NPH/Reg 70/30 [Novolin 50 units SUBCUT BIDAC 01/03/20 70/30] Lactobacillus Acidophilus/Fos 1 ea PO BID #30 tab 01/31/20 [Acidophilus Probiotic Tablet] Maternal Family History: Family History (Last Reviewed 03/19/20 @ 11:19 by Basilia Quiros) Mother Lung cancer Anxiety Arthritis Depression (emotion) Diabetes Sister CVA (cerebral vascular accident) Anxiety Asthma Depression (emotion) Heart disease Aunt Arthritis Depression (emotion) Diabetes Daughter Cancer Grandmother Diabetes Grandfather Heart disease Psychiatric care CVA (cerebral vascular accident) Father COPD (chronic obstructive pulmonary disease) Family History: No pertinent history Paternal Family History: Family History (Last Reviewed 03/19/20 @ 11:19 by Basilia Quiros) Mother Lung cancer Anxiety Arthritis Depression (emotion) Diabetes Sister CVA (cerebral vascular accident) Anxiety Asthma Depression (emotion) Heart disease Aunt Arthritis Depression (emotion) Diabetes Daughter Cancer Grandmother Diabetes Grandfather Heart disease Psychiatric care CVA (cerebral vascular accident) Father COPD (chronic obstructive pulmonary disease) Family History: No pertinent history Smoking Status: Former smoker Tobacco Use: Non-smoker Physical Exam Vital Signs Temp Pulse Resp BP 96.4 F L 68 18 123/46 H 05/08/20 13:05 05/08/20 13:05 05/08/20 13:05 05/08/20 13:05 General: Alert, Oriented x3, Cooperative, No apparent distress Psych/Mental Status: Normal Affect, Appropriate Assessment/Plan Active Problems (Last Reviewed 03/19/20 @ 11:19 by Basilia Quiros) Skin graft (allograft) (autograft) failure (Chronic) Partial loss of skin graft (Acute) Hidradenitis suppurativa of anus (Chronic) Chronic ulcer of sacral region with fat layer exposed (Chronic) Ulcer of perianal area with fat layer exposed (Chronic) nonhealing hidradenitis ulcer bilateral perianal areas Open wound of sacroiliac region with complication (Acute) Open wound of buttock (Acute) bilateral perianal and gluteal areas Type 2 diabetes mellitus (Chronic) The patient appears to be tolerating hyperbaric oxygen therapy well which will be continued as per the patient's medical plan. Treatment Course Number Number of HBO Treatments 30 Ordered Treatment Course Number 1 Treatment # 17 Chamber # 1 Chamber Type Monoplace Diabetes - Detail Diabetes Diabetes Type II Diabetes Control Uncontrolled Other - Detail Compromised/Failed Flap/Graft Yes (specify site in comment) Treatment Plan ALEM (Atmospheric Absolute) 2 Number of Minutes 90 Number of Air Breaks 0
[2020-05-11 10:41] LABS: Bedside Glucose 155 mg/dL (70-110)
--- NOTE | 2020-05-11 11:33 | HBO.PN.PCM_ITS ---
History of Present Illness Date of Service: 05/11/20 Presenting Chief Complaint: Nonhealing recurrent hidradenitis ulcer bilateral perianal area with skin graft compromise. CHRISS VERA is a 75 year old currently undergoing hyperbaric oxygen therapy for Nonhealing recurrent hidradenitis ulcer bilateral perianal area with skin graft compromise. Progress: Today represents the 18th session of 30 planned sessions. Tolerance of hyperbaric oxygen therapy: Hyperbaric oxygen treatment was provided as per the facility's protocol at 2.0 ALEM in 100% oxygen for 90 minutes without air breaks. The patient tolerated hyperbaric oxygen well, without complications or complaints. Upon emergence of the hyperbaric chamber, the patient's vital signs remained stable. She was discharged in good condition. Pre-and post- blood sugar measurements are documented in the clinical panel. Past Medical History Chronic Problems (Last Updated 05/08/20 @ 15:[address] 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) Ulcer of perianal area with fat layer exposed (Chronic) nonhealing hidradenitis ulcer bilateral perianal areas Atherosclerosis of coronary artery of [place] heart without angina pectoris (Chronic) Essential hypertension (Chronic) Anemia (Chronic) Asthma (Chronic) Chronic pneumonia (Chronic) Hyperlipidemia (Chronic) Type 2 diabetes mellitus (Chronic) Hypothyroidism (Chronic) COPD (chronic obstructive pulmonary disease) (Chronic) Allergies/Adverse Reactions: Allergies adhesive tape Allergy (Unknown, Verified 03/19/20 11:15) Other Severe itching azithromycin [From Zithromax] Allergy (Unknown, Verified 03/19/20 11:15) Shortness of breath Patient stated she also breaks out in a rash cephalexin [From Keflex] Allergy (Unknown, Verified 03/19/20 11:15) Shortness of breath Patient stated she also breaks out in a rash Home Medications: Ambulatory Orders Medication Instructions Recorded atorvastatin 80 mg tablet 80 mg PO DAILY 10/25/18 bimatoprost 0.01 % eye drops 1 drp OPHTHALMIC QPM 10/25/18 citalopram 20 mg tablet 20 mg PO DAILY 10/25/18 furosemide 40 mg tablet 40 mg PO DAILY 10/25/18 metformin 500 mg tablet 500 mg PO BID 10/25/18 polyethylene glycol 3350 17 gram 17 g PO DAILY PRN 10/25/18 oral powder packet potassium chloride 20 mEq oral 20 meq PO DAILY 10/25/18 packet pumpkin seed extract-soy germ 300 1 cap PO PRN PRN cap 10/25/18 mg capsule ropinirole 0.5 mg tablet 0.5 mg PO QHS 10/25/18 Latanoprost 0.005% [Xalatan 1 drp OPHTHALMIC (EYE) HS 12/03/18 Opthalmic] Levothyroxine [Synthroid] 175 mcg PO MOTUWETHFRSA 12/03/18 Nystatin Powder [Mycostatin Powder] 1 applic TOPICAL BID 12/03/18 Bisacodyl [Dulcolax] 10 mg PO DAILY PRN tab 01/18/19 Mineral Oil/Petrolatum,White 1 applic TOPICAL QHS jar 01/18/19 [Eucerin] Nutritional Supplement [Juice - 1 packet PO BIDCM #60 packet 01/18/19 ORANGE FLAVOR] Pantoprazole Sodium [Protonix] 40 mg PO DAILY #30 tab 01/18/19 Senna [Senokot] 2 tab PO BID tab 01/18/19 buPROPion SR [Wellbutrin SR (150mg 150 mg PO BID #60 tablet.sa 01/18/19 tablets)] hydrOXYzine pamoate capsule 50 mg PO 4X/DAY PRN PRN #120 cap 01/18/19 [Vistaril pamoate capsule] Rifampin [Rifadin] 300 mg PO BID #14 cap 01/25/19 Insulin NPH/Reg 70/30 [Novolin 50 units SUBCUT BIDAC 01/03/20 70/30] Lactobacillus Acidophilus/Fos 1 ea PO BID #30 tab 01/31/20 [Acidophilus Probiotic Tablet] Maternal Family History: Family History (Last Reviewed 03/19/20 @ 11:19 by Basilia Quiros) Mother Lung cancer Anxiety Arthritis Depression (emotion) Diabetes Sister CVA (cerebral vascular accident) Anxiety Asthma Depression (emotion) Heart disease Aunt Arthritis Depression (emotion) Diabetes Daughter Cancer Grandmother Diabetes Grandfather Heart disease Psychiatric care CVA (cerebral vascular accident) Father COPD (chronic obstructive pulmonary disease) Family History: No pertinent history Paternal Family History: Family History (Last Reviewed 03/19/20 @ 11:19 by Basilia Quiros) Mother Lung cancer Anxiety Arthritis Depression (emotion) Diabetes Sister CVA (cerebral vascular accident) Anxiety Asthma Depression (emotion) Heart disease Aunt Arthritis Depression (emotion) Diabetes Daughter Cancer Grandmother Diabetes Grandfather Heart disease Psychiatric care CVA (cerebral vascular accident) Father COPD (chronic obstructive pulmonary disease) Family History: No pertinent history Smoking Status: Former smoker Tobacco Use: Non-smoker Physical Exam Vital Signs Temp Pulse Resp BP 96.4 F L 68 18 123/46 H 05/08/20 13:05 05/08/20 13:05 05/08/20 13:05 05/08/20 13:05 General: Alert, Oriented x3, Cooperative, No apparent distress HEENT: Atraumatic, TM's Clear Lungs: Clear to auscultation, Normal air movement Cardiovascular: Regular rate, Regular Rhythm Psych/Mental Status: Normal Affect, Appropriate, Alert and oriented to time, place, person, mood and affect Assessment/Plan Treatment Course Number Number of HBO Treatments 30 Ordered Treatment Course Number 1 Treatment # 18 Chamber # 1 Chamber Type Monoplace Diabetes - Detail Diabetes Diabetes Type II Diabetes Control Uncontrolled Other - Detail Compromised/Failed Flap/Graft Yes (specify site in comment) Treatment Plan ALEM (Atmospheric Absolute) 2 Number of Minutes 90 Number of Air Breaks 0
[2020-05-11 12:05] VITALS: BP 134/77; BP 141/57; PULSE 66; PULSE 68; RESP 16; TEMP 35.8; TEMP 36.1
[2020-05-11 12:55] LABS: Bedside Glucose 202 mg/dL (70-110)
[2020-05-12 09:56] LABS: Bedside Glucose 215 mg/dL (70-110)
[2020-05-12 12:08] VITALS: BP 138/63; BP 140/92; PULSE 62; PULSE 68; RESP 16; TEMP 36; TEMP 36.1
[2020-05-12 12:10] LABS: Bedside Glucose 264 mg/dL (70-110)
--- NOTE | 2020-05-12 12:32 | PCM.HBO.PN ---
History of Present Illness Date of Service: 05/12/20 Presenting Chief Complaint: Nonhealing recurrent hidradenitis ulcer bilateral perianal area with skin graft compromise. CHRISS VERA is a 75 year old currently undergoing hyperbaric oxygen therapy for Nonhealing recurrent hidradenitis ulcer bilateral perianal area with skin graft compromise. Progress: Today represents the 19th session of 30 planned sessions. Tolerance of hyperbaric oxygen therapy: Hyperbaric oxygen treatment was provided as per the facility's protocol at 2.0 ALEM in 100% oxygen for 90 minutes without air breaks. The patient tolerated hyperbaric oxygen well, without complications or complaints. Upon emergence of the hyperbaric chamber, the patient's vital signs remained stable. She was discharged in good condition. Pre-and post- blood sugar measurements are documented in the clinical panel. Past Medical History Chronic Problems (Last Updated 05/08/20 @ 15:[address] 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) Ulcer of perianal area with fat layer exposed (Chronic) nonhealing hidradenitis ulcer bilateral perianal areas Atherosclerosis of coronary artery of [place] heart without angina pectoris (Chronic) Essential hypertension (Chronic) Anemia (Chronic) Asthma (Chronic) Chronic pneumonia (Chronic) Hyperlipidemia (Chronic) Type 2 diabetes mellitus (Chronic) Hypothyroidism (Chronic) COPD (chronic obstructive pulmonary disease) (Chronic) Allergies/Adverse Reactions: Allergies adhesive tape Allergy (Unknown, Verified 03/19/20 11:15) Other Severe itching azithromycin [From Zithromax] Allergy (Unknown, Verified 03/19/20 11:15) Shortness of breath Patient stated she also breaks out in a rash cephalexin [From Keflex] Allergy (Unknown, Verified 03/19/20 11:15) Shortness of breath Patient stated she also breaks out in a rash Home Medications: Ambulatory Orders Medication Instructions Recorded atorvastatin 80 mg tablet 80 mg PO DAILY 10/25/18 bimatoprost 0.01 % eye drops 1 drp OPHTHALMIC QPM 10/25/18 citalopram 20 mg tablet 20 mg PO DAILY 10/25/18 furosemide 40 mg tablet 40 mg PO DAILY 10/25/18 metformin 500 mg tablet 500 mg PO BID 10/25/18 polyethylene glycol 3350 17 gram 17 g PO DAILY PRN 10/25/18 oral powder packet potassium chloride 20 mEq oral 20 meq PO DAILY 10/25/18 packet pumpkin seed extract-soy germ 300 1 cap PO PRN PRN cap 10/25/18 mg capsule ropinirole 0.5 mg tablet 0.5 mg PO QHS 10/25/18 Latanoprost 0.005% [Xalatan 1 drp OPHTHALMIC (EYE) HS 12/03/18 Opthalmic] Levothyroxine [Synthroid] 175 mcg PO MOTUWETHFRSA 12/03/18 Nystatin Powder [Mycostatin Powder] 1 applic TOPICAL BID 12/03/18 Bisacodyl [Dulcolax] 10 mg PO DAILY PRN tab 01/18/19 Mineral Oil/Petrolatum,White 1 applic TOPICAL QHS jar 01/18/19 [Eucerin] Nutritional Supplement [Juice - 1 packet PO BIDCM #60 packet 01/18/19 ORANGE FLAVOR] Pantoprazole Sodium [Protonix] 40 mg PO DAILY #30 tab 01/18/19 Senna [Senokot] 2 tab PO BID tab 01/18/19 buPROPion SR [Wellbutrin SR (150mg 150 mg PO BID #60 tablet.sa 01/18/19 tablets)] hydrOXYzine pamoate capsule 50 mg PO 4X/DAY PRN PRN #120 cap 01/18/19 [Vistaril pamoate capsule] Rifampin [Rifadin] 300 mg PO BID #14 cap 01/25/19 Insulin NPH/Reg 70/30 [Novolin 50 units SUBCUT BIDAC 01/03/20 70/30] Lactobacillus Acidophilus/Fos 1 ea PO BID #30 tab 01/31/20 [Acidophilus Probiotic Tablet] Maternal Family History: Family History (Last Reviewed 03/19/20 @ 11:19 by Basilia Quiros) Mother Lung cancer Anxiety Arthritis Depression (emotion) Diabetes Sister CVA (cerebral vascular accident) Anxiety Asthma Depression (emotion) Heart disease Aunt Arthritis Depression (emotion) Diabetes Daughter Cancer Grandmother Diabetes Grandfather Heart disease Psychiatric care CVA (cerebral vascular accident) Father COPD (chronic obstructive pulmonary disease) Family History: No pertinent history Paternal Family History: Family History (Last Reviewed 03/19/20 @ 11:19 by Basilia Quiros) Mother Lung cancer Anxiety Arthritis Depression (emotion) Diabetes Sister CVA (cerebral vascular accident) Anxiety Asthma Depression (emotion) Heart disease Aunt Arthritis Depression (emotion) Diabetes Daughter Cancer Grandmother Diabetes Grandfather Heart disease Psychiatric care CVA (cerebral vascular accident) Father COPD (chronic obstructive pulmonary disease) Family History: No pertinent history Smoking Status: Former smoker Tobacco Use: Non-smoker Physical Exam Vital Signs Temp Pulse Resp BP 97.0 F L 68 16 140/92 H 05/12/20 12:08 05/12/20 12:08 05/12/20 12:08 05/12/20 12:08 General: Alert, Oriented x3, Cooperative, No apparent distress, Well developed, Well nourished HEENT: Atraumatic, PERRLA, EOMI, Normocephalic Lungs: Normal air movement Psych/Mental Status: Normal Affect, Appropriate, Alert and oriented to time, place, person, mood and affect Assessment/Plan The patient appears to be tolerating hyperbaric oxygen therapy well, which will be continued as per the patient's medical plan. Treatment Course Number Number of HBO Treatments 30 Ordered Treatment Course Number 1 Treatment # 19 Chamber # 1 Chamber Type Monoplace Diabetes - Detail Diabetes Diabetes Type II Diabetes Control Uncontrolled Other - Detail Compromised/Failed Flap/Graft Yes (specify site in comment) Treatment Plan ALEM (Atmospheric Absolute) 2 Number of Minutes 90 Number of Air Breaks 0
[2020-05-13 10:10] LABS: Bedside Glucose 176 mg/dL (70-110)
--- NOTE | 2020-05-13 12:44 | HBO.PN.PCM_ITS ---
History of Present Illness Date of Service: 05/13/20 Presenting Chief Complaint: Nonhealing recurrent hidradenitis ulcer bilateral perianal area with skin graft compromise. CHRISS VERA is a 75 year old currently undergoing hyperbaric oxygen therapy for Nonhealing recurrent hidradenitis ulcer bilateral perianal area with skin graft compromise. Progress: Today represents the 20th session of 30 planned sessions. Tolerance of hyperbaric oxygen therapy: Hyperbaric oxygen treatment was provided as per the facility's protocol at 2.0 ALEM in 100% oxygen for 90 minutes without air breaks. The patient tolerated hyperbaric oxygen well, without complications or complaints. Upon emergence of the hyperbaric chamber, the patient's vital signs remained stable. She was discharged in good condition. Pre-and post- blood sugar measurements are documented in the clinical panel. Past Medical History Chronic Problems (Last Updated 05/08/20 @ 15:[address] 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) Ulcer of perianal area with fat layer exposed (Chronic) nonhealing hidradenitis ulcer bilateral perianal areas Atherosclerosis of coronary artery of [place] heart without angina pectoris (Chronic) Essential hypertension (Chronic) Anemia (Chronic) Asthma (Chronic) Chronic pneumonia (Chronic) Hyperlipidemia (Chronic) Type 2 diabetes mellitus (Chronic) Hypothyroidism (Chronic) COPD (chronic obstructive pulmonary disease) (Chronic) Allergies/Adverse Reactions: Allergies adhesive tape Allergy (Unknown, Verified 03/19/20 11:15) Other Severe itching azithromycin [From Zithromax] Allergy (Unknown, Verified 03/19/20 11:15) Shortness of breath Patient stated she also breaks out in a rash cephalexin [From Keflex] Allergy (Unknown, Verified 03/19/20 11:15) Shortness of breath Patient stated she also breaks out in a rash Home Medications: Ambulatory Orders Medication Instructions Recorded atorvastatin 80 mg tablet 80 mg PO DAILY 10/25/18 bimatoprost 0.01 % eye drops 1 drp OPHTHALMIC QPM 10/25/18 citalopram 20 mg tablet 20 mg PO DAILY 10/25/18 furosemide 40 mg tablet 40 mg PO DAILY 10/25/18 metformin 500 mg tablet 500 mg PO BID 10/25/18 polyethylene glycol 3350 17 gram 17 g PO DAILY PRN 10/25/18 oral powder packet potassium chloride 20 mEq oral 20 meq PO DAILY 10/25/18 packet pumpkin seed extract-soy germ 300 1 cap PO PRN PRN cap 10/25/18 mg capsule ropinirole 0.5 mg tablet 0.5 mg PO QHS 10/25/18 Latanoprost 0.005% [Xalatan 1 drp OPHTHALMIC (EYE) HS 12/03/18 Opthalmic] Levothyroxine [Synthroid] 175 mcg PO MOTUWETHFRSA 12/03/18 Nystatin Powder [Mycostatin Powder] 1 applic TOPICAL BID 12/03/18 Bisacodyl [Dulcolax] 10 mg PO DAILY PRN tab 01/18/19 Mineral Oil/Petrolatum,White 1 applic TOPICAL QHS jar 01/18/19 [Eucerin] Nutritional Supplement [Juice - 1 packet PO BIDCM #60 packet 01/18/19 ORANGE FLAVOR] Pantoprazole Sodium [Protonix] 40 mg PO DAILY #30 tab 01/18/19 Senna [Senokot] 2 tab PO BID tab 01/18/19 buPROPion SR [Wellbutrin SR (150mg 150 mg PO BID #60 tablet.sa 01/18/19 tablets)] hydrOXYzine pamoate capsule 50 mg PO 4X/DAY PRN PRN #120 cap 01/18/19 [Vistaril pamoate capsule] Rifampin [Rifadin] 300 mg PO BID #14 cap 01/25/19 Insulin NPH/Reg 70/30 [Novolin 50 units SUBCUT BIDAC 01/03/20 70/30] Lactobacillus Acidophilus/Fos 1 ea PO BID #30 tab 01/31/20 [Acidophilus Probiotic Tablet] Maternal Family History: Family History (Last Reviewed 03/19/20 @ 11:19 by Basilia Quiros) Mother Lung cancer Anxiety Arthritis Depression (emotion) Diabetes Sister CVA (cerebral vascular accident) Anxiety Asthma Depression (emotion) Heart disease Aunt Arthritis Depression (emotion) Diabetes Daughter Cancer Grandmother Diabetes Grandfather Heart disease Psychiatric care CVA (cerebral vascular accident) Father COPD (chronic obstructive pulmonary disease) Family History: No pertinent history Paternal Family History: Family History (Last Reviewed 03/19/20 @ 11:19 by Basilia Quiros) Mother Lung cancer Anxiety Arthritis Depression (emotion) Diabetes Sister CVA (cerebral vascular accident) Anxiety Asthma Depression (emotion) Heart disease Aunt Arthritis Depression (emotion) Diabetes Daughter Cancer Grandmother Diabetes Grandfather Heart disease Psychiatric care CVA (cerebral vascular accident) Father COPD (chronic obstructive pulmonary disease) Family History: No pertinent history Smoking Status: Former smoker Tobacco Use: Non-smoker Physical Exam Vital Signs Temp Pulse Resp BP 97.0 F L 68 16 140/92 H 05/12/20 12:08 05/12/20 12:08 05/12/20 12:08 05/12/20 12:08 Assessment/Plan The patient appears to be tolerating hyperbaric oxygen therapy well, which will be continued as per the patient's medical plan. Treatment Course Number Number of HBO Treatments 30 Ordered Treatment Course Number 1 Treatment # 19 Chamber # 1 Chamber Type Monoplace Diabetes - Detail Diabetes Diabetes Type II Diabetes Control Uncontrolled Other - Detail Compromised/Failed Flap/Graft Yes (specify site in comment) Treatment Plan ALEM (Atmospheric Absolute) 2 Number of Minutes 90 Number of Air Breaks 0
[2020-05-13 12:50] LABS: Bedside Glucose 194 mg/dL (70-110)
[2020-05-13 17:03] VITALS: BP 158/39; BP 159/42; PULSE 66; PULSE 67; RESP 18; TEMP 36.2; TEMP 36.4
[2020-05-14 10:11] LABS: Bedside Glucose 103 mg/dL (70-110)
[2020-05-14 10:11] LABS: Bedside Glucose 137 mg/dL (70-110)
[2020-05-14 10:39] VITALS: BP 122/38; BP 126/40; PULSE 69; PULSE 74; RESP 16; RESP 18; TEMP 36.1; TEMP 36.6
--- NOTE | 2020-05-14 11:01 | PCM.HBO.PN ---
History of Present Illness Date of Service: 05/14/20 Presenting Chief Complaint: Nonhealing recurrent hidradenitis ulcer bilateral perianal area with skin graft compromise. CHRISS VERA is a 75 year old currently undergoing hyperbaric oxygen therapy for Nonhealing recurrent hidradenitis ulcer bilateral perianal area with skin graft compromise. Progress: Today represents the 21st session of 30 planned sessions. Tolerance of hyperbaric oxygen therapy: Hyperbaric oxygen treatment was provided as per the facility's protocol at 2.0 ALEM in 100% oxygen for 90 minutes without air breaks. The patient tolerated hyperbaric oxygen well, without complications or complaints. Upon emergence of the hyperbaric chamber, the patient's vital signs remained stable. She was discharged in good condition. Pre-and post- blood sugar measurements are documented in the clinical panel. Past Medical History Chronic Problems (Last Updated 05/08/20 @ 15:[address] 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) Ulcer of perianal area with fat layer exposed (Chronic) nonhealing hidradenitis ulcer bilateral perianal areas Atherosclerosis of coronary artery of [place] heart without angina pectoris (Chronic) Essential hypertension (Chronic) Anemia (Chronic) Asthma (Chronic) Chronic pneumonia (Chronic) Hyperlipidemia (Chronic) Type 2 diabetes mellitus (Chronic) Hypothyroidism (Chronic) COPD (chronic obstructive pulmonary disease) (Chronic) Allergies/Adverse Reactions: Allergies adhesive tape Allergy (Unknown, Verified 03/19/20 11:15) Other Severe itching azithromycin [From Zithromax] Allergy (Unknown, Verified 03/19/20 11:15) Shortness of breath Patient stated she also breaks out in a rash cephalexin [From Keflex] Allergy (Unknown, Verified 03/19/20 11:15) Shortness of breath Patient stated she also breaks out in a rash Home Medications: Ambulatory Orders Medication Instructions Recorded atorvastatin 80 mg tablet 80 mg PO DAILY 10/25/18 bimatoprost 0.01 % eye drops 1 drp OPHTHALMIC QPM 10/25/18 citalopram 20 mg tablet 20 mg PO DAILY 10/25/18 furosemide 40 mg tablet 40 mg PO DAILY 10/25/18 metformin 500 mg tablet 500 mg PO BID 10/25/18 polyethylene glycol 3350 17 gram 17 g PO DAILY PRN 10/25/18 oral powder packet potassium chloride 20 mEq oral 20 meq PO DAILY 10/25/18 packet pumpkin seed extract-soy germ 300 1 cap PO PRN PRN cap 10/25/18 mg capsule ropinirole 0.5 mg tablet 0.5 mg PO QHS 10/25/18 Latanoprost 0.005% [Xalatan 1 drp OPHTHALMIC (EYE) HS 12/03/18 Opthalmic] Levothyroxine [Synthroid] 175 mcg PO MOTUWETHFRSA 12/03/18 Nystatin Powder [Mycostatin Powder] 1 applic TOPICAL BID 12/03/18 Bisacodyl [Dulcolax] 10 mg PO DAILY PRN tab 01/18/19 Mineral Oil/Petrolatum,White 1 applic TOPICAL QHS jar 01/18/19 [Eucerin] Nutritional Supplement [Juice - 1 packet PO BIDCM #60 packet 01/18/19 ORANGE FLAVOR] Pantoprazole Sodium [Protonix] 40 mg PO DAILY #30 tab 01/18/19 Senna [Senokot] 2 tab PO BID tab 01/18/19 buPROPion SR [Wellbutrin SR (150mg 150 mg PO BID #60 tablet.sa 01/18/19 tablets)] hydrOXYzine pamoate capsule 50 mg PO 4X/DAY PRN PRN #120 cap 01/18/19 [Vistaril pamoate capsule] Rifampin [Rifadin] 300 mg PO BID #14 cap 01/25/19 Insulin NPH/Reg 70/30 [Novolin 50 units SUBCUT BIDAC 01/03/20 70/30] Lactobacillus Acidophilus/Fos 1 ea PO BID #30 tab 01/31/20 [Acidophilus Probiotic Tablet] Maternal Family History: Family History (Last Reviewed 03/19/20 @ 11:19 by Basilia Quiros) Mother Lung cancer Anxiety Arthritis Depression (emotion) Diabetes Sister CVA (cerebral vascular accident) Anxiety Asthma Depression (emotion) Heart disease Aunt Arthritis Depression (emotion) Diabetes Daughter Cancer Grandmother Diabetes Grandfather Heart disease Psychiatric care CVA (cerebral vascular accident) Father COPD (chronic obstructive pulmonary disease) Family History: No pertinent history Paternal Family History: Family History (Last Reviewed 03/19/20 @ 11:19 by Basilia Quiros) Mother Lung cancer Anxiety Arthritis Depression (emotion) Diabetes Sister CVA (cerebral vascular accident) Anxiety Asthma Depression (emotion) Heart disease Aunt Arthritis Depression (emotion) Diabetes Daughter Cancer Grandmother Diabetes Grandfather Heart disease Psychiatric care CVA (cerebral vascular accident) Father COPD (chronic obstructive pulmonary disease) Family History: No pertinent history Smoking Status: Former smoker Tobacco Use: Non-smoker Physical Exam Vital Signs Temp Pulse Resp BP 97.8 F 69 18 126/40 H 05/14/20 10:39 05/14/20 10:39 05/14/20 10:39 05/14/20 10:39 General: Alert, Oriented x3, Cooperative, No apparent distress HEENT: Atraumatic, Normocephalic Lungs: Normal air movement Psych/Mental Status: Normal Affect Assessment/Plan The patient appears to be tolerating hyperbaric oxygen therapy well, which will be continued as per the patient's medical plan. Treatment Course Number Number of HBO Treatments 30 Ordered Treatment Course Number 1 Treatment # 21 Chamber # 274/34 Chamber Type Monoplace Diabetes - Detail Diabetes Diabetes Type II Diabetes Control Uncontrolled Other - Detail Compromised/Failed Flap/Graft Yes (specify site in comment) Treatment Plan ALEM (Atmospheric Absolute) 2 Number of Minutes 90 Number of Air Breaks 0 HBO supervision
[2020-05-14 12:20] LABS: Bedside Glucose 196 mg/dL (70-110)
[2020-05-15 10:24] VITALS: BP 153/42; PULSE 79; RESP 18; TEMP 36.2; BMI 33.5
[2020-05-15 10:59] VITALS: BP 137/31; PULSE 72
[2020-05-15 11:20] LABS: Bedside Glucose 229 mg/dL (70-110)
[2020-05-15 11:34] VITALS: BP 158/44; BP 165/57; PULSE 67; PULSE 85; RESP 18; TEMP 36.2; TEMP 36.4
[2020-05-15 13:31] LABS: Bedside Glucose 203 mg/dL (70-110)
--- NOTE | 2020-05-15 13:40 | PCM.HBO.PN ---
History of Present Illness Date of Service: 05/15/20 Presenting Chief Complaint: Nonhealing recurrent hidradenitis ulcer bilateral perianal area with skin graft compromise. CHRISS VERA is a 75 year old currently undergoing hyperbaric oxygen therapy for Nonhealing recurrent hidradenitis ulcer bilateral perianal area with skin graft compromise. Progress: Today represents the 22nd session of 30 planned sessions. Tolerance of hyperbaric oxygen therapy: Hyperbaric oxygen treatment was provided as per the facility's protocol at 2.0 ALEM in 100% oxygen for 90 minutes without air breaks. The patient tolerated hyperbaric oxygen well, without complications or complaints. Upon emergence of the hyperbaric chamber, the patient's vital signs remained stable. She was discharged in good condition. Pre-and post- blood sugar measurements are documented in the clinical panel. Past Medical History Chronic Problems (Last Updated 05/08/20 @ 15:[address] 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) Ulcer of perianal area with fat layer exposed (Chronic) nonhealing hidradenitis ulcer bilateral perianal areas Atherosclerosis of coronary artery of [place] heart without angina pectoris (Chronic) Essential hypertension (Chronic) Anemia (Chronic) Asthma (Chronic) Chronic pneumonia (Chronic) Hyperlipidemia (Chronic) Type 2 diabetes mellitus (Chronic) Hypothyroidism (Chronic) COPD (chronic obstructive pulmonary disease) (Chronic) Allergies/Adverse Reactions: Allergies adhesive tape Allergy (Unknown, Verified 03/19/20 11:15) Other Severe itching azithromycin [From Zithromax] Allergy (Unknown, Verified 03/19/20 11:15) Shortness of breath Patient stated she also breaks out in a rash cephalexin [From Keflex] Allergy (Unknown, Verified 03/19/20 11:15) Shortness of breath Patient stated she also breaks out in a rash Home Medications: Ambulatory Orders Medication Instructions Recorded atorvastatin 80 mg tablet 80 mg PO DAILY 10/25/18 bimatoprost 0.01 % eye drops 1 drp OPHTHALMIC QPM 10/25/18 citalopram 20 mg tablet 20 mg PO DAILY 10/25/18 furosemide 40 mg tablet 40 mg PO DAILY 10/25/18 metformin 500 mg tablet 500 mg PO BID 10/25/18 polyethylene glycol 3350 17 gram 17 g PO DAILY PRN 10/25/18 oral powder packet potassium chloride 20 mEq oral 20 meq PO DAILY 10/25/18 packet pumpkin seed extract-soy germ 300 1 cap PO PRN PRN cap 10/25/18 mg capsule ropinirole 0.5 mg tablet 0.5 mg PO QHS 10/25/18 Latanoprost 0.005% [Xalatan 1 drp OPHTHALMIC (EYE) HS 12/03/18 Opthalmic] Levothyroxine [Synthroid] 175 mcg PO MOTUWETHFRSA 12/03/18 Nystatin Powder [Mycostatin Powder] 1 applic TOPICAL BID 12/03/18 Bisacodyl [Dulcolax] 10 mg PO DAILY PRN tab 01/18/19 Mineral Oil/Petrolatum,White 1 applic TOPICAL QHS jar 01/18/19 [Eucerin] Nutritional Supplement [Juice - 1 packet PO BIDCM #60 packet 01/18/19 ORANGE FLAVOR] Pantoprazole Sodium [Protonix] 40 mg PO DAILY #30 tab 01/18/19 Senna [Senokot] 2 tab PO BID tab 01/18/19 buPROPion SR [Wellbutrin SR (150mg 150 mg PO BID #60 tablet.sa 01/18/19 tablets)] hydrOXYzine pamoate capsule 50 mg PO 4X/DAY PRN PRN #120 cap 01/18/19 [Vistaril pamoate capsule] Rifampin [Rifadin] 300 mg PO BID #14 cap 01/25/19 Insulin NPH/Reg 70/30 [Novolin 50 units SUBCUT BIDAC 01/03/20 70/30] Lactobacillus Acidophilus/Fos 1 ea PO BID #30 tab 01/31/20 [Acidophilus Probiotic Tablet] Maternal Family History: Family History (Last Reviewed 03/19/20 @ 11:19 by Basilia Quiros) Mother Lung cancer Anxiety Arthritis Depression (emotion) Diabetes Sister CVA (cerebral vascular accident) Anxiety Asthma Depression (emotion) Heart disease Aunt Arthritis Depression (emotion) Diabetes Daughter Cancer Grandmother Diabetes Grandfather Heart disease Psychiatric care CVA (cerebral vascular accident) Father COPD (chronic obstructive pulmonary disease) Family History: No pertinent history Paternal Family History: Family History (Last Reviewed 03/19/20 @ 11:19 by Basilia Quiros) Mother Lung cancer Anxiety Arthritis Depression (emotion) Diabetes Sister CVA (cerebral vascular accident) Anxiety Asthma Depression (emotion) Heart disease Aunt Arthritis Depression (emotion) Diabetes Daughter Cancer Grandmother Diabetes Grandfather Heart disease Psychiatric care CVA (cerebral vascular accident) Father COPD (chronic obstructive pulmonary disease) Family History: No pertinent history Smoking Status: Former smoker Tobacco Use: Non-smoker Physical Exam Vital Signs Temp Pulse Resp BP 97.2 F L 85 18 158/44 H 05/15/20 11:34 05/15/20 11:34 05/15/20 11:34 05/15/20 11:34 General: Alert, Cooperative, No apparent distress HEENT: Atraumatic, Normocephalic, TM's Clear, EAC Clear Lungs: Clear to auscultation, Normal air movement, No rhonchi, No wheeze, No rales Cardiovascular: Regular rate, Regular Rhythm Psych/Mental Status: Normal Affect, Appropriate Assessment/Plan Treatment Course Number Number of HBO Treatments 30 Ordered Treatment Course Number 1 Treatment # 22 Chamber # 274/34 Chamber Type Monoplace Diabetes - Detail Diabetes Diabetes Type II Diabetes Control Uncontrolled Other - Detail Compromised/Failed Flap/Graft Yes (specify site in comment) Treatment Plan ALEM (Atmospheric Absolute) 2 Number of Minutes 90 Number of Air Breaks 0 The patient appears to be tolerating hyperbaric oxygen therapy well, which will be continued as per the patient's medical plan.
--- NOTE | 2020-05-15 13:55 | PCM.WC.PN ---
(1) Ulcer of perianal area with fat layer exposed Status: Chronic Current Visit: Yes Code(s): L98.492 - Non-pressure chronic ulcer of skin of other sites with fat layer exposed Comment: nonhealing hidradenitis ulcer bilateral perianal areas (2) Skin graft (allograft) (autograft) failure Status: Chronic Current Visit: Yes Code(s): T86.821 - Skin graft (allograft) (autograft) failure (3) Hidradenitis suppurativa of anus Status: Chronic Current Visit: Yes Code(s): L73.2 - Hidradenitis suppurativa (4) Type 2 diabetes mellitus Status: Chronic Current Visit: No Code(s): E11.9 - Type 2 diabetes mellitus without complications Type of Wound Date of Service: 05/15/20 Chief Complaint: Nonhealing recurrent hidradenitis ulcer bilateral perianal area with skin graft compromise. History of Wound: Surgery 01/31/20 - Surgical preparation bilateral perianal area with excisional debridement nonhealing recurrent hidradenitis ulcer with FTSG reconstruction from left lower back/superior gluteal area (6.25 cm2) and placement AmnioFill placental connective tissue powder (250 mg). Wound care - Silver. Calmaceptine cream or any barrier cream to the excoriated hailee wound. Operative culture - Negative. She was continued on Augmentin from a preop culture (12/23/19) that showed Streptococcus anginosus, Corynebacterium striatum, and Anaerobic cocci. Prealbumin from 02/17/20 was 13.0. Encourage nutritional supplementation with protein to help the healing process. HgbA1c from 04/11/19 was 7.4. There is compromise of the skin graft. There is complete compromise of the graft. Patient would benefit from HBO therapy to help salvage her graft. CXR was done on 02/17/20 which showed infiltrate versus fibrosis posterior aspect of the lower lobe, seen on the lateral view. If the patient has symptoms suggestive of pneumonia correlate with CT Chest. The CT Chest was done on 02/26/20, which showed chronic interstitial changes in both lung streeter without organized infiltrate, or effusion. There is a 4 mm noncalcified nodule in the superior segment of the right lower lobe on axial image 46, and a pleural-based 5 mm nodule in the right middle lobe on axial image 57. Six-month follow-up study recommended to assure stability. She saw Pulmonology which will manage her lung issues and they did clear her for HBO. Her ECG showed frequent PVC's. Her cardiology group gave a verbal clearance for HBOT. Donor site incision is dry and intact on the left lower back/upper gluteal area. Today she denies any fever and states her appetite is good. Progress of Wound: Improvement in size and appearance of ulcer. The patient denies any fever, chills, nausea, vomiting, or diarrhea. Denies any signs of infection, including increasing pain, redness, swelling, or purulent/malodorous drainage from affected area. She is tolerating wound care and HBO treatment well. - Physical Exam Vital Signs Temp Pulse Resp BP 97.2 F L 85 18 158/44 H 05/15/20 11:34 05/15/20 11:34 05/15/20 11:34 05/15/20 11:34 General: Alert, Cooperative, No apparent distress HEENT: Atraumatic, Normocephalic Oral: Moist Mucosa Neck: Supple, Trachea Midline Lungs: Clear to auscultation, Normal air movement, No rhonchi, No wheeze, No rales Cardiovascular: Regular rate, Regular Rhythm Extremities: Capillary Refill Less than 3 Seconds Skin: Ulcer/ Wound - Perianal ulcer has good granulation present. It is decreased in size and improved in appearance. Subcutaneous layer is exposed, no tunneling, undermining, or probing to bone. No hailee-ulcer warmth or tenderness. Mild excoriation of hailee-ulcer area., Excoriated Wound Measurements and Assessment WC - Nurse 1 - General Ulcer Measurement Start: 05/07/20 11:47 Freq: Status: Active Protocol: Activity Type Activity Date Activity User E-Sign Co-Sign Detail Recorded Client Recorded Date Recorded By Document 05/15/20 10:24 [facility] [id number] 05/15/20 10:27 [facility] 05/15/20 10:24 Wound Center Nurse 1 [Ulcer Assessment] #2- coccyx/ Graft,post op -Combined with other wound No -Current Size (cm) - Length 3.2 -Current Size (cm) - Width 1 -Current Size (cm) - Depth 0.6 -Total Square Cm 3.2 -Photo Taken No -Epithelialization Small 1-33% -Tunneling No -Undermining/Tunneling No -Circular Undermining No -Exudate Amt Small -Exudate Type Serosanguineous -Wound Margin Distinct, Outline Attached -Granulation Amt Large (67-100%) -Granulation Quality Red -Slough/Fibrin Yes -Necrosis Amt Small (1-33%) -Necrotic Tissue Type Adherent Slough -Texture (Hailee-wound Skin Appearance) Assessed, Scarring -Moisture (Hailee-wound Skin Appearance Assessed ) -Color (Hailee-wound Skin Appearance) Assessed -Temperature (Hailee-wound Skin No Abnormality Appearance) (Pt Warm) -Tenderness on Palpation (Hailee-wound No Skin Appearance) -Ulcer Cleansing SOAPY WATER -Foul Odor after Cleansing No -Anesthetic Used 5% Lidocaine Gel WC - Nurse 2 - General Ulcer CM Notes Start: 05/07/20 11:47 Freq: Status: Active Protocol: Activity Type Activity Date Activity User E-Sign Co-Sign Detail Recorded Client Recorded Date Recorded By Document 05/15/20 10:45 PL [id number] 05/15/20 10:50 PL 05/15/20 10:45 Wound Center Nurse 2 [Procedure/Treatment] -Time 10:45 -Correct Patient Yes -Correct Side, Site, Position Yes -Correct Procedure Yes -Procedure Performed Yes -Type of Procedure Debridement -Clinical Debridement Subcutaneous -Tissue Removed Subcutaneous -Post Debridement (cm) - Length 3.5 -Post Debridement (cm) - Width 1.5 -Post Debridement (cm) - Depth 1.0 -Total Square (Post) (cm) 5.25 -Area of Debridement (cm) - Length 3.5 -Area of Debridement (cm) - Width 1.5 -Total Square (Area) (cm) 5.25 -Tunneling No -Undermining/Tunneling No -Circular Undermining No -Wound/Ulcer Outcome Not Healed -Bioengineered Tissue No -Debridement - Subq, 1st 20sq cm Yes [See Physician Procedure note for Specifics] Pain Scale: 0-10 Numeric [Pain] -Is Patient Pain Free? Yes ADAMS - Nurse 3 - General Ulcer D/C NN Start: 05/07/20 11:47 Freq: Status: Active Protocol: Activity Type Activity Date Activity User E-Sign Co-Sign Detail Recorded Client Recorded Date Recorded By Document 05/15/20 10:59 RB [id number] 05/15/20 11:00 RB 05/15/20 10:59 Wound Care Nurse 3 [Wound Dressing] #2- coccyx/ Graft,post op -Ulcer Cleansing Wound Cleanser -Primary Dressing Applied Aquacel AG 2x2 -Primary Dressing Covered/Secured Dry Gauze, with Secured with Tape -Aquacel AG 2x2 1 [Post Procedure Tolerated] -Treatment Response Procedure Tolerated Well Vital Signs [Pulse] -Pulse Rate (60-100) 72 -Pulse Location Monitor [Blood Pressure] -Blood Pressure (90/60-120/80) 137/31 H -Blood Pressure Mean (mm Hg) 66 -Source Monitor -Position Semi-Fowlers -Blood Pressure Location Left Arm Pain Scale: 0-10 Numeric [Pain] -Is Patient Pain Free? Yes WC - Visit Discharge [Visit Discharge Information] -Discharge Condition Stable -Ambulatory Status Wheelchair -Transportation Private Auto -Medication Reconcilliation completed No & provided to patient/care provider -Clinical Summary of Care Provided Yes Psych/Mental Status: Normal Affect, Appropriate Debridement Note Post-Debridement Measurements/Treatment WC - Nurse 2 - General Ulcer CM Notes Start: 05/07/20 11:47 Freq: Status: Active Protocol: Activity Type Activity Date Activity User E-Sign Co-Sign Detail Recorded Client Recorded Date Recorded By Document 05/15/20 10:45 PL [id number] 05/15/20 10:50 PL 05/15/20 10:45 Wound Center Nurse 2 #2- coccyx/ Graft,post op -Time 10:45 -Correct Patient Yes -Correct Side, Site, Position Yes -Correct Procedure Yes -Procedure Performed Yes -Type of Procedure Debridement -Clinical Debridement Subcutaneous -Tissue Removed Subcutaneous -Post Debridement (cm) - Length 3.5 -Post Debridement (cm) - Width 1.5 -Post Debridement (cm) - Depth 1.0 -Total Square (Post) (cm) 5.25 -Area of Debridement (cm) - Length 3.5 -Area of Debridement (cm) - Width 1.5 -Total Square (Area) (cm) 5.25 -Tunneling No -Undermining/Tunneling No -Circular Undermining No -Wound/Ulcer Outcome Not Healed -Bioengineered Tissue No -Debridement - Subq, 1st 20sq cm Yes Pain Scale: 0-10 Numeric Is Patient Pain Free? Yes - Nurse 3 - General Ulcer D/C NN Start: 05/07/20 11:47 Freq: Status: Active Protocol: Activity Type Activity Date Activity User E-Sign Co-Sign Detail Recorded Client Recorded Date Recorded By Document 05/08/20 13:05 DL [id number] 05/08/20 13:07 JF Document 05/12/20 12:08 JF [id number] 05/12/20 12:11 JF Document 05/15/20 10:59 RB [id number] 05/15/20 11:00 RB 05/08/20 05/12/20 05/15/20 13:05 12:08 10:59 Wound Care Nurse 3 #2- coccyx/ Graft,post op -Ulcer Cleansing Wound Cleanser -Primary Dressing Applied Aquacel AG 2x2 -Primary Dressing Covered/Secured with Dry Gauze, Secured with Tape -Aquacel AG 2x2 1 Treatment Response Procedure Tolerated Well Vital Signs Pulse Rate (60-100) 72 Pulse Location Monitor Blood Pressure (90/60-120/80) 137/31 H Blood Pressure Mean (mm Hg) 66 Source Monitor Position Semi-Fowlers Blood Pressure Location Left Arm Pain Scale: 0-10 Numeric Is Patient Pain Free? Yes Yes Yes WC - Visit Discharge Discharge Condition Stable Stable Stable Ambulatory Status Wheelchair Ambulatory, Wheelchair Wheelchair Transportation Private Auto Private Auto Private Auto Accompanied by Mango Cobian Medication Reconcilliation completed & Yes Yes No provided to patient/care provider Clinical Summary of Care Provided Yes Yes Yes Wound debrided: Perianal ulcer Laterality: Not Applicable Type of Debridement: Excisional debridement Anesthesia Used: 5% Lidocaine Gel Depth: in the subcutaneous layer Percentage of wound debrided: 100 Instrument Used: 7mm curette Tissue Removed: Slough and devitalized tissue Severity: Fat Layer Exposed Amount of bleeding with debridement: Mild Bleeding Controlled with: Pressure Patient tolerated procedure well Assessment/Plan Active Problems (Last Updated 05/08/20 @ 15:[address] Eva Ding, DO) Skin graft (allograft) (autograft) failure (Chronic) Hidradenitis suppurativa of anus (Chronic) Ulcer of perianal area with fat layer exposed (Chronic) nonhealing hidradenitis ulcer bilateral perianal areas Assessment: 1. Nonhealing recurrent hidradenitis ulcer bilateral perianal area. 2. Hidradenitis. 3. Diabetes. 4. Former smoker. Plan: Perianal ulcer debridement in clinic today prior to HBO treatment. Wound care - Continue Silver dressing changes daily. Place Calmaceptin cream, A&D ointment or any barrier cream 1-2 times daily to the excoriated hailee wound area. She has finished Augmentin for preop culture (12/23/19) that showed Streptococcus anginosus, Corynebacterium striatum, and Anaerobic cocci. The operative culture was negative. Patient had compromised skin graft and is benefiting from HBO treatments. CXR reviewed. A followup CT Chest was recommended prior to starting HBO. The CT Chest was done on 02/26/20, which showed chronic interstitial changes in both lung streeter without organized infiltrate, or effusion. There is a 4 mm noncalcified nodule in the superior segment of the right lower lobe on axial image 46, and a pleural-based 5 mm nodule in the right middle lobe on axial image 57. Six-month follow-up study recommended to assure stability. She saw Pulmonology which will manage her lung issues but they did clear her for HBO. Her ECG showed frequent PVC's , her cardiology group gave a clearance for HBO. Her insurance has approved the HBO. Her Prealbumin was 13.0 from 02/17/20. Encourage nutritional supplementation with protein to help the healing process. HgbA1c from 04/11/19 was 7.4. Follow-up for reassessment in [address] Eaton (05/25/2020). Follow-up sooner should new or concerning symptoms arise. Note: Integrated biometrics speech recognition tractor trailer driver software was used to create portions of this document. Sound-alike and misspelled words, as well as other tractor trailer driver errors may be contained in the documentation. [id number]: [id number] Kacey subq tissue 20 sq cm/<
[2020-05-18 11:01] LABS: Bedside Glucose 183 mg/dL (70-110)
--- NOTE | 2020-05-18 11:38 | PCM.HBO.PN ---
History of Present Illness Date of Service: 05/18/20 Presenting Chief Complaint: Nonhealing recurrent hidradenitis ulcer bilateral perianal area with skin graft compromise. CHRISS VERA is a 75 year old currently undergoing hyperbaric oxygen therapy for Nonhealing recurrent hidradenitis ulcer bilateral perianal area with skin graft compromise. Progress: Today represents the 23rd session of 30 planned sessions. Tolerance of hyperbaric oxygen therapy: Hyperbaric oxygen treatment was provided as per the facility's protocol at 2.0 ALEM in 100% oxygen for 90 minutes without air breaks. The patient tolerated hyperbaric oxygen well, without complications or complaints. Upon emergence of the hyperbaric chamber, the patient's vital signs remained stable. She was discharged in good condition. Pre-and post- blood sugar measurements are documented in the clinical panel. Past Medical History Chronic Problems (Last Updated 05/08/20 @ 15:[address] 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) Ulcer of perianal area with fat layer exposed (Chronic) nonhealing hidradenitis ulcer bilateral perianal areas Atherosclerosis of coronary artery of [place] heart without angina pectoris (Chronic) Essential hypertension (Chronic) Anemia (Chronic) Asthma (Chronic) Chronic pneumonia (Chronic) Hyperlipidemia (Chronic) Type 2 diabetes mellitus (Chronic) Hypothyroidism (Chronic) COPD (chronic obstructive pulmonary disease) (Chronic) Allergies/Adverse Reactions: Allergies adhesive tape Allergy (Unknown, Verified 03/19/20 11:15) Other Severe itching azithromycin [From Zithromax] Allergy (Unknown, Verified 03/19/20 11:15) Shortness of breath Patient stated she also breaks out in a rash cephalexin [From Keflex] Allergy (Unknown, Verified 03/19/20 11:15) Shortness of breath Patient stated she also breaks out in a rash Home Medications: Ambulatory Orders Medication Instructions Recorded atorvastatin 80 mg tablet 80 mg PO DAILY 10/25/18 bimatoprost 0.01 % eye drops 1 drp OPHTHALMIC QPM 10/25/18 citalopram 20 mg tablet 20 mg PO DAILY 10/25/18 furosemide 40 mg tablet 40 mg PO DAILY 10/25/18 metformin 500 mg tablet 500 mg PO BID 10/25/18 polyethylene glycol 3350 17 gram 17 g PO DAILY PRN 10/25/18 oral powder packet potassium chloride 20 mEq oral 20 meq PO DAILY 10/25/18 packet pumpkin seed extract-soy germ 300 1 cap PO PRN PRN cap 10/25/18 mg capsule ropinirole 0.5 mg tablet 0.5 mg PO QHS 10/25/18 Latanoprost 0.005% [Xalatan 1 drp OPHTHALMIC (EYE) HS 12/03/18 Opthalmic] Levothyroxine [Synthroid] 175 mcg PO MOTUWETHFRSA 12/03/18 Nystatin Powder [Mycostatin Powder] 1 applic TOPICAL BID 12/03/18 Bisacodyl [Dulcolax] 10 mg PO DAILY PRN tab 01/18/19 Mineral Oil/Petrolatum,White 1 applic TOPICAL QHS jar 01/18/19 [Eucerin] Nutritional Supplement [Juice - 1 packet PO BIDCM #60 packet 01/18/19 ORANGE FLAVOR] Pantoprazole Sodium [Protonix] 40 mg PO DAILY #30 tab 01/18/19 Senna [Senokot] 2 tab PO BID tab 01/18/19 buPROPion SR [Wellbutrin SR (150mg 150 mg PO BID #60 tablet.sa 01/18/19 tablets)] hydrOXYzine pamoate capsule 50 mg PO 4X/DAY PRN PRN #120 cap 01/18/19 [Vistaril pamoate capsule] Rifampin [Rifadin] 300 mg PO BID #14 cap 01/25/19 Insulin NPH/Reg 70/30 [Novolin 50 units SUBCUT BIDAC 01/03/20 70/30] Lactobacillus Acidophilus/Fos 1 ea PO BID #30 tab 01/31/20 [Acidophilus Probiotic Tablet] Maternal Family History: Family History (Last Reviewed 03/19/20 @ 11:19 by Basilia Quiros) Mother Lung cancer Anxiety Arthritis Depression (emotion) Diabetes Sister CVA (cerebral vascular accident) Anxiety Asthma Depression (emotion) Heart disease Aunt Arthritis Depression (emotion) Diabetes Daughter Cancer Grandmother Diabetes Grandfather Heart disease Psychiatric care CVA (cerebral vascular accident) Father COPD (chronic obstructive pulmonary disease) Family History: No pertinent history Paternal Family History: Family History (Last Reviewed 03/19/20 @ 11:19 by Basilia Quiros) Mother Lung cancer Anxiety Arthritis Depression (emotion) Diabetes Sister CVA (cerebral vascular accident) Anxiety Asthma Depression (emotion) Heart disease Aunt Arthritis Depression (emotion) Diabetes Daughter Cancer Grandmother Diabetes Grandfather Heart disease Psychiatric care CVA (cerebral vascular accident) Father COPD (chronic obstructive pulmonary disease) Family History: No pertinent history Smoking Status: Former smoker Tobacco Use: Non-smoker Physical Exam Vital Signs Temp Pulse Resp BP 97.2 F L 85 18 158/44 H 05/15/20 11:34 05/15/20 11:34 05/15/20 11:34 05/15/20 11:34 General: Alert, Oriented x3, Cooperative, No apparent distress HEENT: Atraumatic, Normocephalic, TM's Clear Lungs: Clear to auscultation, Normal air movement Cardiovascular: Regular rate, Regular Rhythm Psych/Mental Status: Normal Affect, Appropriate, Alert and oriented to time, place, person, mood and affect Assessment/Plan Active Problems (Last Updated 05/08/20 @ 15:[address] Eva Ding, DO) Skin graft (allograft) (autograft) failure (Chronic) Hidradenitis suppurativa of anus (Chronic) Ulcer of perianal area with fat layer exposed (Chronic) nonhealing hidradenitis ulcer bilateral perianal areas Treatment Course Number Number of HBO Treatments 30 Ordered Treatment Course Number 1 Treatment # 23 Chamber # 274/34 Chamber Type Monoplace Diabetes - Detail Diabetes Diabetes Type II Diabetes Control Uncontrolled Other - Detail Compromised/Failed Flap/Graft Yes (specify site in comment) Treatment Plan ALEM (Atmospheric Absolute) 2 Number of Minutes 90 Number of Air Breaks 0
[2020-05-18 13:10] LABS: Bedside Glucose 214 mg/dL (70-110)
[2020-05-18 13:29] VITALS: BP 139/51; BP 155/59; PULSE 74; PULSE 75; RESP 16; RESP 18; TEMP 36.1; TEMP 36.3
[2020-05-21 11:00] LABS: Bedside Glucose 223 mg/dL (70-110)
[2020-05-21 11:19] VITALS: BP 138/45; BP 180/43; PULSE 71; PULSE 90; RESP 16; RESP 18; TEMP 36.4; TEMP 36.6
--- NOTE | 2020-05-21 12:32 | HBO.PN.PCM_ITS ---
History of Present Illness Date of Service: 05/21/20 Presenting Chief Complaint: Nonhealing recurrent hidradenitis ulcer bilateral perianal area with skin graft compromise. CHRISS VERA is a 75 year old currently undergoing hyperbaric oxygen therapy for Nonhealing recurrent hidradenitis ulcer bilateral perianal area with skin graft compromise. Progress: Today represents the 24th session of 30 planned sessions. Tolerance of hyperbaric oxygen therapy: Hyperbaric oxygen treatment was provided as per the facility's protocol at 2.0 ALEM in 100% oxygen for 90 minutes without air breaks. The patient tolerated hyperbaric oxygen well, without complications or complaints. Upon emergence of the hyperbaric chamber, the patient's vital signs remained stable. She was discharged in good condition. Pre-and post- blood sugar measurements are documented in the clinical panel. Past Medical History Chronic Problems (Last Updated 05/08/20 @ 15:[address] 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) Ulcer of perianal area with fat layer exposed (Chronic) nonhealing hidradenitis ulcer bilateral perianal areas Atherosclerosis of coronary artery of [place] heart without angina pectoris (Chronic) Essential hypertension (Chronic) Anemia (Chronic) Asthma (Chronic) Chronic pneumonia (Chronic) Hyperlipidemia (Chronic) Type 2 diabetes mellitus (Chronic) Hypothyroidism (Chronic) COPD (chronic obstructive pulmonary disease) (Chronic) Allergies/Adverse Reactions: Allergies adhesive tape Allergy (Unknown, Verified 03/19/20 11:15) Other Severe itching azithromycin [From Zithromax] Allergy (Unknown, Verified 03/19/20 11:15) Shortness of breath Patient stated she also breaks out in a rash cephalexin [From Keflex] Allergy (Unknown, Verified 03/19/20 11:15) Shortness of breath Patient stated she also breaks out in a rash Home Medications: Ambulatory Orders Medication Instructions Recorded atorvastatin 80 mg tablet 80 mg PO DAILY 10/25/18 bimatoprost 0.01 % eye drops 1 drp OPHTHALMIC QPM 10/25/18 citalopram 20 mg tablet 20 mg PO DAILY 10/25/18 furosemide 40 mg tablet 40 mg PO DAILY 10/25/18 metformin 500 mg tablet 500 mg PO BID 10/25/18 polyethylene glycol 3350 17 gram 17 g PO DAILY PRN 10/25/18 oral powder packet potassium chloride 20 mEq oral 20 meq PO DAILY 10/25/18 packet pumpkin seed extract-soy germ 300 1 cap PO PRN PRN cap 10/25/18 mg capsule ropinirole 0.5 mg tablet 0.5 mg PO QHS 10/25/18 Latanoprost 0.005% [Xalatan 1 drp OPHTHALMIC (EYE) HS 12/03/18 Opthalmic] Levothyroxine [Synthroid] 175 mcg PO MOTUWETHFRSA 12/03/18 Nystatin Powder [Mycostatin Powder] 1 applic TOPICAL BID 12/03/18 Bisacodyl [Dulcolax] 10 mg PO DAILY PRN tab 01/18/19 Mineral Oil/Petrolatum,White 1 applic TOPICAL QHS jar 01/18/19 [Eucerin] Nutritional Supplement [Juice - 1 packet PO BIDCM #60 packet 01/18/19 ORANGE FLAVOR] Pantoprazole Sodium [Protonix] 40 mg PO DAILY #30 tab 01/18/19 Senna [Senokot] 2 tab PO BID tab 01/18/19 buPROPion SR [Wellbutrin SR (150mg 150 mg PO BID #60 tablet.sa 01/18/19 tablets)] hydrOXYzine pamoate capsule 50 mg PO 4X/DAY PRN PRN #120 cap 01/18/19 [Vistaril pamoate capsule] Rifampin [Rifadin] 300 mg PO BID #14 cap 01/25/19 Insulin NPH/Reg 70/30 [Novolin 50 units SUBCUT BIDAC 01/03/20 70/30] Lactobacillus Acidophilus/Fos 1 ea PO BID #30 tab 01/31/20 [Acidophilus Probiotic Tablet] Maternal Family History: Family History (Last Reviewed 03/19/20 @ 11:19 by Basilia Quiros) Mother Lung cancer Anxiety Arthritis Depression (emotion) Diabetes Sister CVA (cerebral vascular accident) Anxiety Asthma Depression (emotion) Heart disease Aunt Arthritis Depression (emotion) Diabetes Daughter Cancer Grandmother Diabetes Grandfather Heart disease Psychiatric care CVA (cerebral vascular accident) Father COPD (chronic obstructive pulmonary disease) Family History: No pertinent history Paternal Family History: Family History (Last Reviewed 03/19/20 @ 11:19 by Basilia Quiros) Mother Lung cancer Anxiety Arthritis Depression (emotion) Diabetes Sister CVA (cerebral vascular accident) Anxiety Asthma Depression (emotion) Heart disease Aunt Arthritis Depression (emotion) Diabetes Daughter Cancer Grandmother Diabetes Grandfather Heart disease Psychiatric care CVA (cerebral vascular accident) Father COPD (chronic obstructive pulmonary disease) Family History: No pertinent history Smoking Status: Former smoker Tobacco Use: Non-smoker Physical Exam Vital Signs Temp Pulse Resp BP 97.9 F 90 16 138/45 H 05/21/20 11:19 05/21/20 11:19 05/21/20 11:19 05/21/20 11:19 General: Alert, Oriented x3, Cooperative, No apparent distress HEENT: Atraumatic, Normocephalic Lungs: Normal air movement Psych/Mental Status: Normal Affect Assessment/Plan The patient appears to be tolerating hyperbaric oxygen therapy well, which will be continued as per the patient's medical plan. Treatment Course Number Number of HBO Treatments 30 Ordered Treatment Course Number 1 Treatment # 24 Chamber # 274-34 Chamber Type Monoplace Diabetes - Detail Diabetes Diabetes Type II Diabetes Control Uncontrolled Other - Detail Compromised/Failed Flap/Graft Yes (specify site in comment) Treatment Plan ALEM (Atmospheric Absolute) 2 Number of Minutes 90 Number of Air Breaks 0 HBO supervision
[2020-05-21 13:20] LABS: Bedside Glucose 239 mg/dL (70-110)
[2020-05-22 10:56] LABS: Bedside Glucose 174 mg/dL (70-110)
[2020-05-22 12:55] LABS: Bedside Glucose 223 mg/dL (70-110)
[2020-05-22 13:26] VITALS: BP 146/45; BP 148/50; PULSE 71; RESP 16; RESP 18; TEMP 35.6; TEMP 36.4
--- NOTE | 2020-05-22 14:36 | HBO.PN.PCM_ITS ---
History of Present Illness Date of Service: 05/22/20 Presenting Chief Complaint: Nonhealing recurrent hidradenitis ulcer bilateral perianal area with skin graft compromise. CHRISS VERA is a 75 year old currently undergoing hyperbaric oxygen therapy for Nonhealing recurrent hidradenitis ulcer bilateral perianal area with skin graft compromise. Progress: Today represents the 25th session of 30 planned sessions. Tolerance of hyperbaric oxygen therapy: Hyperbaric oxygen treatment was provided as per the facility's protocol at 2.0 ALEM in 100% oxygen for 90 minutes without air breaks. The patient tolerated hyperbaric oxygen well, without complications or complaints. Upon emergence of the hyperbaric chamber, the patient's vital signs remained stable. She was discharged in good condition. Pre-and post- blood sugar measurements are documented in the clinical panel. Past Medical History Chronic Problems (Last Updated 05/08/20 @ 15:[address] 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) Ulcer of perianal area with fat layer exposed (Chronic) nonhealing hidradenitis ulcer bilateral perianal areas Atherosclerosis of coronary artery of [place] heart without angina pectoris (Chronic) Essential hypertension (Chronic) Anemia (Chronic) Asthma (Chronic) Chronic pneumonia (Chronic) Hyperlipidemia (Chronic) Type 2 diabetes mellitus (Chronic) Hypothyroidism (Chronic) COPD (chronic obstructive pulmonary disease) (Chronic) Allergies/Adverse Reactions: Allergies adhesive tape Allergy (Unknown, Verified 03/19/20 11:15) Other Severe itching azithromycin [From Zithromax] Allergy (Unknown, Verified 03/19/20 11:15) Shortness of breath Patient stated she also breaks out in a rash cephalexin [From Keflex] Allergy (Unknown, Verified 03/19/20 11:15) Shortness of breath Patient stated she also breaks out in a rash Home Medications: Ambulatory Orders Medication Instructions Recorded atorvastatin 80 mg tablet 80 mg PO DAILY 10/25/18 bimatoprost 0.01 % eye drops 1 drp OPHTHALMIC QPM 10/25/18 citalopram 20 mg tablet 20 mg PO DAILY 10/25/18 furosemide 40 mg tablet 40 mg PO DAILY 10/25/18 metformin 500 mg tablet 500 mg PO BID 10/25/18 polyethylene glycol 3350 17 gram 17 g PO DAILY PRN 10/25/18 oral powder packet potassium chloride 20 mEq oral 20 meq PO DAILY 10/25/18 packet pumpkin seed extract-soy germ 300 1 cap PO PRN PRN cap 10/25/18 mg capsule ropinirole 0.5 mg tablet 0.5 mg PO QHS 10/25/18 Latanoprost 0.005% [Xalatan 1 drp OPHTHALMIC (EYE) HS 12/03/18 Opthalmic] Levothyroxine [Synthroid] 175 mcg PO MOTUWETHFRSA 12/03/18 Nystatin Powder [Mycostatin Powder] 1 applic TOPICAL BID 12/03/18 Bisacodyl [Dulcolax] 10 mg PO DAILY PRN tab 01/18/19 Mineral Oil/Petrolatum,White 1 applic TOPICAL QHS jar 01/18/19 [Eucerin] Nutritional Supplement [Juice - 1 packet PO BIDCM #60 packet 01/18/19 ORANGE FLAVOR] Pantoprazole Sodium [Protonix] 40 mg PO DAILY #30 tab 01/18/19 Senna [Senokot] 2 tab PO BID tab 01/18/19 buPROPion SR [Wellbutrin SR (150mg 150 mg PO BID #60 tablet.sa 01/18/19 tablets)] hydrOXYzine pamoate capsule 50 mg PO 4X/DAY PRN PRN #120 cap 01/18/19 [Vistaril pamoate capsule] Rifampin [Rifadin] 300 mg PO BID #14 cap 01/25/19 Insulin NPH/Reg 70/30 [Novolin 50 units SUBCUT BIDAC 01/03/20 70/30] Lactobacillus Acidophilus/Fos 1 ea PO BID #30 tab 01/31/20 [Acidophilus Probiotic Tablet] Maternal Family History: Family History (Last Reviewed 03/19/20 @ 11:19 by Basilia Quiros) Mother Lung cancer Anxiety Arthritis Depression (emotion) Diabetes Sister CVA (cerebral vascular accident) Anxiety Asthma Depression (emotion) Heart disease Aunt Arthritis Depression (emotion) Diabetes Daughter Cancer Grandmother Diabetes Grandfather Heart disease Psychiatric care CVA (cerebral vascular accident) Father COPD (chronic obstructive pulmonary disease) Family History: No pertinent history Paternal Family History: Family History (Last Reviewed 03/19/20 @ 11:19 by Basilia Quiros) Mother Lung cancer Anxiety Arthritis Depression (emotion) Diabetes Sister CVA (cerebral vascular accident) Anxiety Asthma Depression (emotion) Heart disease Aunt Arthritis Depression (emotion) Diabetes Daughter Cancer Grandmother Diabetes Grandfather Heart disease Psychiatric care CVA (cerebral vascular accident) Father COPD (chronic obstructive pulmonary disease) Family History: No pertinent history Smoking Status: Former smoker Tobacco Use: Non-smoker Physical Exam Vital Signs Temp Pulse Resp BP 96.0 F L 71 18 146/45 H 05/22/20 13:26 05/22/20 13:26 05/22/20 13:26 05/22/20 13:26 General: Alert, Oriented x3, Cooperative, No apparent distress Psych/Mental Status: Normal Affect, Appropriate Assessment/Plan The patient appears to be tolerating hyperbaric oxygen therapy well, which will be continued as per the patient's medical plan. Treatment Course Number Number of HBO Treatments 30 Ordered Treatment Course Number 1 Treatment # 25 Chamber # 1 Chamber Type Monoplace Diabetes - Detail Diabetes Diabetes Type II Diabetes Control Uncontrolled Other - Detail Compromised/Failed Flap/Graft Yes (specify site in comment) Treatment Plan ALEM (Atmospheric Absolute) 2 Number of Minutes 90 Number of Air Breaks 0
[2020-05-25 10:50] LABS: Bedside Glucose 200 mg/dL (70-110)
[2020-05-25 13:01] LABS: Bedside Glucose 254 mg/dL (70-110)
[2020-05-25 13:31] VITALS: BP 129/76; BP 168/63; PULSE 72; PULSE 76; RESP 16; RESP 18; TEMP 35.6; TEMP 36.3
[2020-05-25 13:34] VITALS: BP 168/63; PULSE 72; RESP 18; TEMP 36.3; BMI 33.5
--- NOTE | 2020-05-25 13:49 | PCM.WC.PN ---
Type of Wound Date of Service: 05/25/20 Chief Complaint: Nonhealing recurrent hidradenitis ulcer bilateral perianal area with skin graft compromise. History of Wound: Surgery 01/31/20 - Surgical preparation bilateral perianal area with excisional debridement nonhealing recurrent hidradenitis ulcer with FTSG reconstruction from left lower back/superior gluteal area (6.25 cm2) and placement AmnioFill placental connective tissue powder (250 mg). Wound care - Silver. Operative culture - Negative. She was continued on Augmentin from a preop culture (12/23/19) that showed Streptococcus anginosus, Corynebacterium striatum, and Anaerobic cocci. Prealbumin from 02/17/20 was 13.0. Encourage nutritional supplementation with protein to help the healing process. HgbA1c from 04/11/19 was 7.4. There is compromise of the skin graft. Patient would benefit from HBO therapy to help salvage her graft and is tolerating the treatments thus far. Today she denies fever. Her appetite is ok. Progress of Wound: Slowly improving. - Physical Exam Vital Signs Temp Pulse Resp BP 97.4 F L 72 18 168/63 H 05/25/20 13:34 05/25/20 13:34 05/25/20 13:34 05/25/20 13:34 Wound Measurements and Assessment WC - Nurse 1 - General Ulcer Measurement Start: 05/07/20 11:47 Freq: Status: Active Protocol: Activity Type Activity Date Activity User E-Sign Co-Sign Detail Recorded Client Recorded Date Recorded By Document 05/25/20 13:34 DL [id number] 05/25/20 13:36 DL 05/25/20 13:34 Wound Center Nurse 1 [Ulcer Assessment] #2- coccyx/ Graft,post op -Current Size (cm) - Length 3 -Current Size (cm) - Width 0.5 -Current Size (cm) - Depth 0.4 -Total Square Cm 1.5 -Photo Taken No -Exudate Amt Small -Exudate Type Serosanguineous -Wound Margin Distinct, Outline Attached -Granulation Amt Large (67-100%) -Granulation Quality Red -Necrosis Amt None Present (0 %) -Structure Exposed N/A -Texture (Hailee-wound Skin Appearance) Scarring -Moisture (Hailee-wound Skin Appearance No Abnormality ) -Color (Hailee-wound Skin Appearance) No Abnormality -Temperature (Hailee-wound Skin No Abnormality Appearance) (Pt Warm) -Tenderness on Palpation (Hailee-wound No Skin Appearance) -Ulcer Cleansing Rinsed/ Irrigated with Saline -Foul Odor after Cleansing No -Anesthetic Used 4% Lidocaine Solution - Nurse 2 - General Ulcer CM Notes Start: 05/07/20 11:47 Freq: Status: Active Protocol: Activity Type Activity Date Activity User E-Sign Co-Sign Detail Recorded Client Recorded Date Recorded By Document 05/25/20 13:41 [id number] 05/25/20 13:42 05/25/20 13:41 Wound Center Nurse 2 [Procedure/Treatment] -Time 13:42 -Correct Patient Yes -Correct Side, Site, Position Yes -Correct Procedure Yes -Procedure Performed Yes -Type of Procedure Debridement -Clinical Debridement Subcutaneous -Tissue Removed Subcutaneous -Post Debridement (cm) - Length 3.3 -Post Debridement (cm) - Width 1.3 -Post Debridement (cm) - Depth 1.0 -Total Square (Post) (cm) 4.29 -Area of Debridement (cm) - Length 3.3 -Area of Debridement (cm) - Width 1.3 -Total Square (Area) (cm) 4.29 -Tunneling No -Undermining/Tunneling No -Circular Undermining No -Wound/Ulcer Outcome Not Healed -Ulcer Cleansing Rinsed/ Irrigated with Saline -Foul Odor after Cleansing No -Bioengineered Tissue No -Bleeding Controlled with Pressure -Offloading No -Treatment Response Procedure Tolerated Well -Debridement - Subq, 1st 20sq cm Yes [See Physician Procedure note for Specifics] Pain Scale: 0-10 Numeric [Pain] -Is Patient Pain Free? Yes - Nurse 3 - General Ulcer D/C NN Start: 05/07/20 11:47 Freq: Status: Active Protocol: Activity Type Activity Date Activity User E-Sign Co-Sign Detail Recorded Client Recorded Date Recorded By Document 05/22/20 13:26 DL [id number] 05/22/20 13:28 05/22/20 13:26 - Visit Discharge [Visit Discharge Information] -Discharge Condition Stable -Ambulatory Status Wheelchair -Transportation Private Auto -Accompanied by Mango -Medication Reconcilliation completed Yes & provided to patient/care provider -Clinical Summary of Care Provided Yes Debridement Note Post-Debridement Measurements/Treatment - Nurse 2 - General Ulcer CM Notes Start: 05/07/20 11:47 Freq: Status: Active Protocol: Activity Type Activity Date Activity User E-Sign Co-Sign Detail Recorded Client Recorded Date Recorded By Document 05/15/20 10:45 PL [id number] 05/15/20 10:50 PL Document 05/25/20 13:41 JF [id number] 05/25/20 13:42 JF 05/15/20 05/25/20 10:45 13:41 Wound Center Nurse 2 #2- coccyx/ Graft,post op -Time 10:45 13:42 -Correct Patient Yes Yes -Correct Side, Site, Position Yes Yes -Correct Procedure Yes Yes -Procedure Performed Yes Yes -Type of Procedure Debridement Debridement -Clinical Debridement Subcutaneous Subcutaneous -Tissue Removed Subcutaneous Subcutaneous -Post Debridement (cm) - Length 3.5 3.3 -Post Debridement (cm) - Width 1.5 1.3 -Post Debridement (cm) - Depth 1.0 1.0 -Total Square (Post) (cm) 5.25 4.29 -Area of Debridement (cm) - Length 3.5 3.3 -Area of Debridement (cm) - Width 1.5 1.3 -Total Square (Area) (cm) 5.25 4.29 -Tunneling No No -Undermining/Tunneling No No -Circular Undermining No No -Wound/Ulcer Outcome Not Healed Not Healed -Ulcer Cleansing Rinsed/ Irrigated with Saline -Foul Odor after Cleansing No -Bioengineered Tissue No No -Bleeding Controlled with Pressure -Offloading No -Treatment Response Procedure Tolerated Well -Debridement - Subq, 1st 20sq cm Yes Yes Pain Scale: 0-10 Numeric Is Patient Pain Free? Yes Yes - Nurse 3 - General Ulcer D/C NN Start: 05/07/20 11:47 Freq: Status: Active Protocol: Activity Type Activity Date Activity User E-Sign Co-Sign Detail Recorded Client Recorded Date Recorded By Document 05/08/20 13:05 JF [id number] 05/08/20 13:07 JF Document 05/12/20 12:08 JF [id number] 05/12/20 12:11 JF Document 05/15/20 10:59 RB [id number] 05/15/20 11:00 RB Document 05/22/20 13:26 JF [id number] 05/22/20 13:28 JF 05/08/20 05/12/20 05/15/20 13:05 12:08 10:59 Wound Care Nurse 3 #2- coccyx/ Graft,post op -Ulcer Cleansing Wound Cleanser -Primary Dressing Applied Aquacel AG 2x2 -Primary Dressing Covered/Secured with Dry Gauze, Secured with Tape -Aquacel AG 2x2 1 Treatment Response Procedure Tolerated Well Vital Signs Pulse Rate (60-100) 72 Pulse Location Monitor Blood Pressure (90/60-120/80) 137/31 H Blood Pressure Mean (mm Hg) 66 Source Monitor Position Semi-Fowlers Blood Pressure Location Left Arm Pain Scale: 0-10 Numeric Is Patient Pain Free? Yes Yes Yes WC - Visit Discharge Discharge Condition Stable Stable Stable Ambulatory Status Wheelchair Ambulatory, Wheelchair Wheelchair Transportation Private Auto Private Auto Private Auto Accompanied by Mango Cobian Medication Reconcilliation completed & Yes Yes No provided to patient/care provider Clinical Summary of Care Provided Yes Yes Yes 05/22/20 13:26 Wound Care Nurse 3 #2- coccyx/ Graft,post op -Ulcer Cleansing -Primary Dressing Applied -Primary Dressing Covered/Secured with -Aquacel AG 2x2 Treatment Response Vital Signs Pulse Rate (60-100) Pulse Location Blood Pressure (90/60-120/80) Blood Pressure Mean (mm Hg) Source Position Blood Pressure Location Pain Scale: 0-10 Numeric Is Patient Pain Free? WC - Visit Discharge Discharge Condition Stable Ambulatory Status Wheelchair Transportation Private Auto Accompanied by Mango Medication Reconcilliation completed & Yes provided to patient/care provider Clinical Summary of Care Provided Yes Wound debrided: #2 Bilateral perianal area. Laterality: Not Applicable Wound Grade/Stage: 2. Type of Debridement: Excisional debridement Anesthesia Used: 4% Lidocaine Solution Depth: Down to and including healthy tissue, in the subcutaneous layer Percentage of wound debrided: 100 Instrument Used: 5mm curette Tissue Removed: subcutaneous tissue. Severity: Fat Layer Exposed Amount of bleeding with debridement: Mild Bleeding Controlled with: Pressure Patient tolerated procedure well - a wound culture was obtained today. Assessment/Plan Assessment: 1. Nonhealing recurrent hidradenitis ulcer bilateral perianal area. 2. Hidradenitis. 3. Diabetes. 4. Compromised skin graft bilateral perianal area. 5. Former smoker. Plan: Continue Silver dressing changes daily. She finished Augmentin for preop culture (12/23/19) that showed Streptococcus anginosus, Corynebacterium striatum, and Anaerobic cocci. The operative culture was negative. Another wound culture was done today. A positive culture will necessitate antibiotic therapy. Patient has compromised skin graft and would benefit from HBO treatments. She is tolerating the HBO treatments thus far and would benefit from continuing the HBO treatments. Her Prealbumin was 13.0 from 02/17/20. Encourage nutritional supplementation with protein to help the healing process. HgbA1c from 04/11/19 was 7.4. She also complains of incontinence every since she had a baxter at surgery. We gave her the number for Dr. Fry, female urologist. Followup one week. [id number]: [id number] Kacey subq tissue 20 sq cm/< - ICD-10 - L98.492, L73.2, T86.828, E11.9, Z87.891
--- NOTE | 2020-05-25 15:38 | PCM.HBO.PN ---
History of Present Illness Date of Service: 05/25/20 Presenting Chief Complaint: Nonhealing recurrent hidradenitis ulcer bilateral perianal area with skin graft compromise. CHRISS VERA is a 75 year old currently undergoing hyperbaric oxygen therapy for Nonhealing recurrent hidradenitis ulcer bilateral perianal area with skin graft compromise. Progress: Today represents the 26th session of 30 planned sessions. Tolerance of hyperbaric oxygen therapy: Hyperbaric oxygen treatment was provided as per the facility's protocol at 2.0 ALEM in 100% oxygen for 90 minutes without air breaks. The patient tolerated hyperbaric oxygen well, without complications or complaints. Upon emergence of the hyperbaric chamber, the patient's vital signs remained stable. She was discharged in good condition. Pre-and post- blood sugar measurements are documented in the clinical panel. Past Medical History Chronic Problems (Last Updated 05/22/20 @ 14:[address] 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) Ulcer of perianal area with fat layer exposed (Chronic) nonhealing hidradenitis ulcer bilateral perianal areas Atherosclerosis of coronary artery of [place] heart without angina pectoris (Chronic) Essential hypertension (Chronic) Anemia (Chronic) Asthma (Chronic) Chronic pneumonia (Chronic) Hyperlipidemia (Chronic) Type 2 diabetes mellitus (Chronic) Hypothyroidism (Chronic) COPD (chronic obstructive pulmonary disease) (Chronic) Allergies/Adverse Reactions: Allergies adhesive tape Allergy (Unknown, Verified 03/19/20 11:15) Other Severe itching azithromycin [From Zithromax] Allergy (Unknown, Verified 03/19/20 11:15) Shortness of breath Patient stated she also breaks out in a rash cephalexin [From Keflex] Allergy (Unknown, Verified 03/19/20 11:15) Shortness of breath Patient stated she also breaks out in a rash Home Medications: Ambulatory Orders Medication Instructions Recorded atorvastatin 80 mg tablet 80 mg PO DAILY 10/25/18 bimatoprost 0.01 % eye drops 1 drp OPHTHALMIC QPM 10/25/18 citalopram 20 mg tablet 20 mg PO DAILY 10/25/18 furosemide 40 mg tablet 40 mg PO DAILY 10/25/18 metformin 500 mg tablet 500 mg PO BID 10/25/18 polyethylene glycol 3350 17 gram 17 g PO DAILY PRN 10/25/18 oral powder packet potassium chloride 20 mEq oral 20 meq PO DAILY 10/25/18 packet pumpkin seed extract-soy germ 300 1 cap PO PRN PRN cap 10/25/18 mg capsule ropinirole 0.5 mg tablet 0.5 mg PO QHS 10/25/18 Latanoprost 0.005% [Xalatan 1 drp OPHTHALMIC (EYE) HS 12/03/18 Opthalmic] Levothyroxine [Synthroid] 175 mcg PO MOTUWETHFRSA 12/03/18 Nystatin Powder [Mycostatin Powder] 1 applic TOPICAL BID 12/03/18 Bisacodyl [Dulcolax] 10 mg PO DAILY PRN tab 01/18/19 Mineral Oil/Petrolatum,White 1 applic TOPICAL QHS jar 01/18/19 [Eucerin] Nutritional Supplement [Juice - 1 packet PO BIDCM #60 packet 01/18/19 ORANGE FLAVOR] Pantoprazole Sodium [Protonix] 40 mg PO DAILY #30 tab 01/18/19 Senna [Senokot] 2 tab PO BID tab 01/18/19 buPROPion SR [Wellbutrin SR (150mg 150 mg PO BID #60 tablet.sa 01/18/19 tablets)] hydrOXYzine pamoate capsule 50 mg PO 4X/DAY PRN PRN #120 cap 01/18/19 [Vistaril pamoate capsule] Rifampin [Rifadin] 300 mg PO BID #14 cap 01/25/19 Insulin NPH/Reg 70/30 [Novolin 50 units SUBCUT BIDAC 01/03/20 70/30] Lactobacillus Acidophilus/Fos 1 ea PO BID #30 tab 01/31/20 [Acidophilus Probiotic Tablet] Maternal Family History: Family History (Last Reviewed 03/19/20 @ 11:19 by Basilia Quiros) Mother Lung cancer Anxiety Arthritis Depression (emotion) Diabetes Sister CVA (cerebral vascular accident) Anxiety Asthma Depression (emotion) Heart disease Aunt Arthritis Depression (emotion) Diabetes Daughter Cancer Grandmother Diabetes Grandfather Heart disease Psychiatric care CVA (cerebral vascular accident) Father COPD (chronic obstructive pulmonary disease) Family History: No pertinent history Paternal Family History: Family History (Last Reviewed 03/19/20 @ 11:19 by Basilia Quiros) Mother Lung cancer Anxiety Arthritis Depression (emotion) Diabetes Sister CVA (cerebral vascular accident) Anxiety Asthma Depression (emotion) Heart disease Aunt Arthritis Depression (emotion) Diabetes Daughter Cancer Grandmother Diabetes Grandfather Heart disease Psychiatric care CVA (cerebral vascular accident) Father COPD (chronic obstructive pulmonary disease) Family History: No pertinent history Smoking Status: Former smoker Tobacco Use: Non-smoker Physical Exam Vital Signs Temp Pulse Resp BP 97.4 F L 72 18 168/63 H 05/25/20 13:34 05/25/20 13:34 05/25/20 13:34 05/25/20 13:34 General: Alert, Oriented x3 HEENT: Atraumatic, TM's Clear Lungs: Clear to auscultation, Normal air movement Cardiovascular: Regular rate, Regular Rhythm Psych/Mental Status: Normal Affect, Appropriate, Alert and oriented to time, place, person, mood and affect Assessment/Plan Treatment Course Number Number of HBO Treatments 30 Ordered Treatment Course Number 1 Treatment # 26 Chamber # [id number] Chamber Type Monoplace Diabetes - Detail Diabetes Diabetes Type II Diabetes Control Uncontrolled Other - Detail Compromised/Failed Flap/Graft Yes (specify site in comment) Treatment Plan ALEM (Atmospheric Absolute) 2 Number of Minutes 90 Number of Air Breaks 0
[2020-05-26 10:35] LABS: Bedside Glucose 196 mg/dL (70-110)
[2020-05-26 12:46] LABS: Bedside Glucose 209 mg/dL (70-110)
[2020-05-26 13:16] VITALS: BP 146/32; BP 161/39; PULSE 67; PULSE 80; RESP 16; TEMP 35.5; TEMP 36.4
--- NOTE | 2020-05-26 13:24 | PCM.HBO.PN ---
History of Present Illness Date of Service: 05/26/20 Presenting Chief Complaint: Nonhealing recurrent hidradenitis ulcer bilateral perianal area with skin graft compromise. CHRISS VERA is a 75 year old currently undergoing hyperbaric oxygen therapy for Nonhealing recurrent hidradenitis ulcer bilateral perianal area with skin graft compromise. Progress: Today represents the 27th session of 30 planned sessions. Tolerance of hyperbaric oxygen therapy: Hyperbaric oxygen treatment was provided as per the facility's protocol at 2.0 ALEM in 100% oxygen for 90 minutes without air breaks. The patient tolerated hyperbaric oxygen well, without complications or complaints. Upon emergence of the hyperbaric chamber, the patient's vital signs remained stable. She was discharged in good condition. Pre-and post- blood sugar measurements are documented in the clinical panel. Past Medical History Chronic Problems (Last Updated 05/22/20 @ 14:[address] 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) Ulcer of perianal area with fat layer exposed (Chronic) nonhealing hidradenitis ulcer bilateral perianal areas Atherosclerosis of coronary artery of [place] heart without angina pectoris (Chronic) Essential hypertension (Chronic) Anemia (Chronic) Asthma (Chronic) Chronic pneumonia (Chronic) Hyperlipidemia (Chronic) Type 2 diabetes mellitus (Chronic) Hypothyroidism (Chronic) COPD (chronic obstructive pulmonary disease) (Chronic) Allergies/Adverse Reactions: Allergies adhesive tape Allergy (Unknown, Verified 03/19/20 11:15) Other Severe itching azithromycin [From Zithromax] Allergy (Unknown, Verified 03/19/20 11:15) Shortness of breath Patient stated she also breaks out in a rash cephalexin [From Keflex] Allergy (Unknown, Verified 03/19/20 11:15) Shortness of breath Patient stated she also breaks out in a rash Home Medications: Ambulatory Orders Medication Instructions Recorded atorvastatin 80 mg tablet 80 mg PO DAILY 10/25/18 bimatoprost 0.01 % eye drops 1 drp OPHTHALMIC QPM 10/25/18 citalopram 20 mg tablet 20 mg PO DAILY 10/25/18 furosemide 40 mg tablet 40 mg PO DAILY 10/25/18 metformin 500 mg tablet 500 mg PO BID 10/25/18 polyethylene glycol 3350 17 gram 17 g PO DAILY PRN 10/25/18 oral powder packet potassium chloride 20 mEq oral 20 meq PO DAILY 10/25/18 packet pumpkin seed extract-soy germ 300 1 cap PO PRN PRN cap 10/25/18 mg capsule ropinirole 0.5 mg tablet 0.5 mg PO QHS 10/25/18 Latanoprost 0.005% [Xalatan 1 drp OPHTHALMIC (EYE) HS 12/03/18 Opthalmic] Levothyroxine [Synthroid] 175 mcg PO MOTUWETHFRSA 12/03/18 Nystatin Powder [Mycostatin Powder] 1 applic TOPICAL BID 12/03/18 Bisacodyl [Dulcolax] 10 mg PO DAILY PRN tab 01/18/19 Mineral Oil/Petrolatum,White 1 applic TOPICAL QHS jar 01/18/19 [Eucerin] Nutritional Supplement [Juice - 1 packet PO BIDCM #60 packet 01/18/19 ORANGE FLAVOR] Pantoprazole Sodium [Protonix] 40 mg PO DAILY #30 tab 01/18/19 Senna [Senokot] 2 tab PO BID tab 01/18/19 buPROPion SR [Wellbutrin SR (150mg 150 mg PO BID #60 tablet.sa 01/18/19 tablets)] hydrOXYzine pamoate capsule 50 mg PO 4X/DAY PRN PRN #120 cap 01/18/19 [Vistaril pamoate capsule] Rifampin [Rifadin] 300 mg PO BID #14 cap 01/25/19 Insulin NPH/Reg 70/30 [Novolin 50 units SUBCUT BIDAC 01/03/20 70/30] Lactobacillus Acidophilus/Fos 1 ea PO BID #30 tab 01/31/20 [Acidophilus Probiotic Tablet] Maternal Family History: Family History (Last Reviewed 03/19/20 @ 11:19 by Basilia Quiros) Mother Lung cancer Anxiety Arthritis Depression (emotion) Diabetes Sister CVA (cerebral vascular accident) Anxiety Asthma Depression (emotion) Heart disease Aunt Arthritis Depression (emotion) Diabetes Daughter Cancer Grandmother Diabetes Grandfather Heart disease Psychiatric care CVA (cerebral vascular accident) Father COPD (chronic obstructive pulmonary disease) Family History: No pertinent history Paternal Family History: Family History (Last Reviewed 03/19/20 @ 11:19 by Basilia Quiros) Mother Lung cancer Anxiety Arthritis Depression (emotion) Diabetes Sister CVA (cerebral vascular accident) Anxiety Asthma Depression (emotion) Heart disease Aunt Arthritis Depression (emotion) Diabetes Daughter Cancer Grandmother Diabetes Grandfather Heart disease Psychiatric care CVA (cerebral vascular accident) Father COPD (chronic obstructive pulmonary disease) Family History: No pertinent history Smoking Status: Former smoker Tobacco Use: Non-smoker Physical Exam Vital Signs Temp Pulse Resp BP 97.4 F L 72 18 168/63 H 05/25/20 13:34 05/25/20 13:34 05/25/20 13:34 05/25/20 13:34 General: Alert, Oriented x3, Cooperative, No apparent distress, Well developed, Well nourished HEENT: Atraumatic, PERRLA, EOMI, Normocephalic Lungs: Normal air movement Psych/Mental Status: Normal Affect, Appropriate, Alert and oriented to time, place, person, mood and affect Assessment/Plan The patient appears to be tolerating hyperbaric oxygen therapy well, which will be continued as per the patient's medical plan. Treatment Course Number Number of HBO Treatments 30 Ordered Treatment Course Number 1 Treatment # 26 Chamber # [id number] Chamber Type Monoplace Diabetes - Detail Diabetes Diabetes Type II Diabetes Control Uncontrolled Other - Detail Compromised/Failed Flap/Graft Yes (specify site in comment) Treatment Plan ALEM (Atmospheric Absolute) 2 Number of Minutes 90 Number of Air Breaks 0
[2020-05-27 10:56] LABS: Bedside Glucose 226 mg/dL (70-110)
--- NOTE | 2020-05-27 12:45 | PCM.HBO.PN ---
History of Present Illness Date of Service: 05/27/20 Presenting Chief Complaint: Nonhealing recurrent hidradenitis ulcer bilateral perianal area with skin graft compromise. CHRISS VERA is a 75 year old currently undergoing hyperbaric oxygen therapy for Nonhealing recurrent hidradenitis ulcer bilateral perianal area with skin graft compromise. Progress: Today represents the 28th session of 30 planned sessions. Tolerance of hyperbaric oxygen therapy: Hyperbaric oxygen treatment was provided as per the facility's protocol at 2.0 ALEM in 100% oxygen for 90 minutes without air breaks. The patient tolerated hyperbaric oxygen well, without complications or complaints. Upon emergence of the hyperbaric chamber, the patient's vital signs remained stable. She was discharged in good condition. Pre-and post- blood sugar measurements are documented in the clinical panel. Past Medical History Chronic Problems (Last Updated 05/22/20 @ 14:[address] 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) Ulcer of perianal area with fat layer exposed (Chronic) nonhealing hidradenitis ulcer bilateral perianal areas Atherosclerosis of coronary artery of [place] heart without angina pectoris (Chronic) Essential hypertension (Chronic) Anemia (Chronic) Asthma (Chronic) Chronic pneumonia (Chronic) Hyperlipidemia (Chronic) Type 2 diabetes mellitus (Chronic) Hypothyroidism (Chronic) COPD (chronic obstructive pulmonary disease) (Chronic) Allergies/Adverse Reactions: Allergies adhesive tape Allergy (Unknown, Verified 03/19/20 11:15) Other Severe itching azithromycin [From Zithromax] Allergy (Unknown, Verified 03/19/20 11:15) Shortness of breath Patient stated she also breaks out in a rash cephalexin [From Keflex] Allergy (Unknown, Verified 03/19/20 11:15) Shortness of breath Patient stated she also breaks out in a rash Home Medications: Ambulatory Orders Medication Instructions Recorded atorvastatin 80 mg tablet 80 mg PO DAILY 10/25/18 bimatoprost 0.01 % eye drops 1 drp OPHTHALMIC QPM 10/25/18 citalopram 20 mg tablet 20 mg PO DAILY 10/25/18 furosemide 40 mg tablet 40 mg PO DAILY 10/25/18 metformin 500 mg tablet 500 mg PO BID 10/25/18 polyethylene glycol 3350 17 gram 17 g PO DAILY PRN 10/25/18 oral powder packet potassium chloride 20 mEq oral 20 meq PO DAILY 10/25/18 packet pumpkin seed extract-soy germ 300 1 cap PO PRN PRN cap 10/25/18 mg capsule ropinirole 0.5 mg tablet 0.5 mg PO QHS 10/25/18 Latanoprost 0.005% [Xalatan 1 drp OPHTHALMIC (EYE) HS 12/03/18 Opthalmic] Levothyroxine [Synthroid] 175 mcg PO MOTUWETHFRSA 12/03/18 Nystatin Powder [Mycostatin Powder] 1 applic TOPICAL BID 12/03/18 Bisacodyl [Dulcolax] 10 mg PO DAILY PRN tab 01/18/19 Mineral Oil/Petrolatum,White 1 applic TOPICAL QHS jar 01/18/19 [Eucerin] Nutritional Supplement [Juice - 1 packet PO BIDCM #60 packet 01/18/19 ORANGE FLAVOR] Pantoprazole Sodium [Protonix] 40 mg PO DAILY #30 tab 01/18/19 Senna [Senokot] 2 tab PO BID tab 01/18/19 buPROPion SR [Wellbutrin SR (150mg 150 mg PO BID #60 tablet.sa 01/18/19 tablets)] hydrOXYzine pamoate capsule 50 mg PO 4X/DAY PRN PRN #120 cap 01/18/19 [Vistaril pamoate capsule] Rifampin [Rifadin] 300 mg PO BID #14 cap 01/25/19 Insulin NPH/Reg 70/30 [Novolin 50 units SUBCUT BIDAC 01/03/20 70/30] Lactobacillus Acidophilus/Fos 1 ea PO BID #30 tab 01/31/20 [Acidophilus Probiotic Tablet] Maternal Family History: Family History (Last Reviewed 03/19/20 @ 11:19 by Basilia Quiros) Mother Lung cancer Anxiety Arthritis Depression (emotion) Diabetes Sister CVA (cerebral vascular accident) Anxiety Asthma Depression (emotion) Heart disease Aunt Arthritis Depression (emotion) Diabetes Daughter Cancer Grandmother Diabetes Grandfather Heart disease Psychiatric care CVA (cerebral vascular accident) Father COPD (chronic obstructive pulmonary disease) Family History: No pertinent history Paternal Family History: Family History (Last Reviewed 03/19/20 @ 11:19 by Basilia Quiros) Mother Lung cancer Anxiety Arthritis Depression (emotion) Diabetes Sister CVA (cerebral vascular accident) Anxiety Asthma Depression (emotion) Heart disease Aunt Arthritis Depression (emotion) Diabetes Daughter Cancer Grandmother Diabetes Grandfather Heart disease Psychiatric care CVA (cerebral vascular accident) Father COPD (chronic obstructive pulmonary disease) Family History: No pertinent history Smoking Status: Former smoker Tobacco Use: Non-smoker Physical Exam Vital Signs Temp Pulse Resp BP 95.9 F L 80 16 161/39 H 05/26/20 13:16 05/26/20 13:16 05/26/20 13:16 05/26/20 13:16 Assessment/Plan The patient appears to be tolerating hyperbaric oxygen therapy well, which will be continued as per the patient's medical plan. Treatment Course Number Number of HBO Treatments 30 Ordered Treatment Course Number 1 Treatment # 27 Chamber # 1 Chamber Type Monoplace Diabetes - Detail Diabetes Diabetes Type II Diabetes Control Uncontrolled Other - Detail Compromised/Failed Flap/Graft Yes (specify site in comment) Treatment Plan ALEM (Atmospheric Absolute) 2 Number of Minutes 90 Number of Air Breaks 0
[2020-05-27 13:06] LABS: Bedside Glucose 237 mg/dL (70-110)
[2020-05-27 16:57] VITALS: BP 149/49; BP 152/81; PULSE 75; PULSE 81; RESP 18; TEMP 36.1; TEMP 36.3
[2020-05-28 10:51] LABS: Bedside Glucose 224 mg/dL (70-110)
--- NOTE | 2020-05-28 12:13 | HBO.PN.PCM_ITS ---
History of Present Illness Date of Service: 05/28/20 Presenting Chief Complaint: Nonhealing recurrent hidradenitis ulcer bilateral perianal area with skin graft compromise. CHRISS VERA is a 75 year old currently undergoing hyperbaric oxygen therapy for Nonhealing recurrent hidradenitis ulcer bilateral perianal area with skin graft compromise. Progress: Today represents the 29th session of 30 planned sessions. Tolerance of hyperbaric oxygen therapy: Hyperbaric oxygen treatment was provided as per the facility's protocol at 2.0 ALEM in 100% oxygen for 90 minutes without air breaks. The patient tolerated hyperbaric oxygen well, without complications or complaints. Upon emergence of the hyperbaric chamber, the patient's vital signs remained stable. She was discharged in good condition. Pre-and post- blood sugar measurements are documented in the clinical panel. Past Medical History Chronic Problems (Last Updated 05/22/20 @ 14:[address] 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) Ulcer of perianal area with fat layer exposed (Chronic) nonhealing hidradenitis ulcer bilateral perianal areas Atherosclerosis of coronary artery of [place] heart without angina pectoris (Chronic) Essential hypertension (Chronic) Anemia (Chronic) Asthma (Chronic) Chronic pneumonia (Chronic) Hyperlipidemia (Chronic) Type 2 diabetes mellitus (Chronic) Hypothyroidism (Chronic) COPD (chronic obstructive pulmonary disease) (Chronic) Allergies/Adverse Reactions: Allergies adhesive tape Allergy (Unknown, Verified 03/19/20 11:15) Other Severe itching azithromycin [From Zithromax] Allergy (Unknown, Verified 03/19/20 11:15) Shortness of breath Patient stated she also breaks out in a rash cephalexin [From Keflex] Allergy (Unknown, Verified 03/19/20 11:15) Shortness of breath Patient stated she also breaks out in a rash Home Medications: Ambulatory Orders Medication Instructions Recorded atorvastatin 80 mg tablet 80 mg PO DAILY 10/25/18 bimatoprost 0.01 % eye drops 1 drp OPHTHALMIC QPM 10/25/18 citalopram 20 mg tablet 20 mg PO DAILY 10/25/18 furosemide 40 mg tablet 40 mg PO DAILY 10/25/18 metformin 500 mg tablet 500 mg PO BID 10/25/18 polyethylene glycol 3350 17 gram 17 g PO DAILY PRN 10/25/18 oral powder packet potassium chloride 20 mEq oral 20 meq PO DAILY 10/25/18 packet pumpkin seed extract-soy germ 300 1 cap PO PRN PRN cap 10/25/18 mg capsule ropinirole 0.5 mg tablet 0.5 mg PO QHS 10/25/18 Latanoprost 0.005% [Xalatan 1 drp OPHTHALMIC (EYE) HS 12/03/18 Opthalmic] Levothyroxine [Synthroid] 175 mcg PO MOTUWETHFRSA 12/03/18 Nystatin Powder [Mycostatin Powder] 1 applic TOPICAL BID 12/03/18 Bisacodyl [Dulcolax] 10 mg PO DAILY PRN tab 01/18/19 Mineral Oil/Petrolatum,White 1 applic TOPICAL QHS jar 01/18/19 [Eucerin] Nutritional Supplement [Juice - 1 packet PO BIDCM #60 packet 01/18/19 ORANGE FLAVOR] Pantoprazole Sodium [Protonix] 40 mg PO DAILY #30 tab 01/18/19 Senna [Senokot] 2 tab PO BID tab 01/18/19 buPROPion SR [Wellbutrin SR (150mg 150 mg PO BID #60 tablet.sa 01/18/19 tablets)] hydrOXYzine pamoate capsule 50 mg PO 4X/DAY PRN PRN #120 cap 01/18/19 [Vistaril pamoate capsule] Rifampin [Rifadin] 300 mg PO BID #14 cap 01/25/19 Insulin NPH/Reg 70/30 [Novolin 50 units SUBCUT BIDAC 01/03/20 70/30] Lactobacillus Acidophilus/Fos 1 ea PO BID #30 tab 01/31/20 [Acidophilus Probiotic Tablet] Maternal Family History: Family History (Last Reviewed 03/19/20 @ 11:19 by Basilia Quiros) Mother Lung cancer Anxiety Arthritis Depression (emotion) Diabetes Sister CVA (cerebral vascular accident) Anxiety Asthma Depression (emotion) Heart disease Aunt Arthritis Depression (emotion) Diabetes Daughter Cancer Grandmother Diabetes Grandfather Heart disease Psychiatric care CVA (cerebral vascular accident) Father COPD (chronic obstructive pulmonary disease) Family History: No pertinent history Paternal Family History: Family History (Last Reviewed 03/19/20 @ 11:19 by Basilia Quiros) Mother Lung cancer Anxiety Arthritis Depression (emotion) Diabetes Sister CVA (cerebral vascular accident) Anxiety Asthma Depression (emotion) Heart disease Aunt Arthritis Depression (emotion) Diabetes Daughter Cancer Grandmother Diabetes Grandfather Heart disease Psychiatric care CVA (cerebral vascular accident) Father COPD (chronic obstructive pulmonary disease) Family History: No pertinent history Smoking Status: Former smoker Tobacco Use: Non-smoker Physical Exam Vital Signs Temp Pulse Resp BP 96.9 F L 81 18 149/49 H 05/27/20 16:57 05/27/20 16:57 05/27/20 16:57 05/27/20 16:57 General: Alert, Oriented x3, Cooperative, No apparent distress HEENT: Atraumatic, Normocephalic Lungs: Normal air movement Psych/Mental Status: Normal Affect Assessment/Plan The patient appears to be tolerating hyperbaric oxygen therapy well, which will be continued as per the patient's medical plan. Treatment Course Number Number of HBO Treatments 30 Ordered Treatment Course Number 1 Treatment # 29 Chamber # [id number] Chamber Type Monoplace Diabetes - Detail Diabetes Diabetes Type II Diabetes Control Uncontrolled Other - Detail Compromised/Failed Flap/Graft Yes (specify site in comment) Treatment Plan ALEM (Atmospheric Absolute) 2.0 Number of Minutes 90 Number of Air Breaks 0 HBO Supervision
[2020-05-28 12:40] LABS: Bedside Glucose 253 mg/dL (70-110)
[2020-05-28 16:35] VITALS: BP 140/47; BP 163/60; PULSE 72; PULSE 79; RESP 18; RESP 20; TEMP 36; TEMP 36.3
[2020-06-01 10:36] LABS: Bedside Glucose 153 mg/dL (70-110)
[2020-06-01 12:50] VITALS: BP 158/59; PULSE 80; RESP 16; TEMP 36.3; BMI 33.5
[2020-06-01 13:29] VITALS: BP 139/43; BP 158/59; PULSE 72; PULSE 80; RESP 16; TEMP 35.8; TEMP 36.3
[2020-06-01 13:46] LABS: Bedside Glucose 233 mg/dL (70-110)
--- NOTE | 2020-06-01 14:53 | HBO.PN.PCM_ITS ---
History of Present Illness Date of Service: 06/01/20 Presenting Chief Complaint: Nonhealing recurrent hidradenitis ulcer bilateral perianal area with skin graft compromise. CHRISS VERA is a 75 year old currently undergoing hyperbaric oxygen therapy for Nonhealing recurrent hidradenitis ulcer bilateral perianal area with skin graft compromise. Progress: Today represents the 30th session of 30 planned sessions. Tolerance of hyperbaric oxygen therapy: Hyperbaric oxygen treatment was provided as per the facility's protocol at 2.0 ALEM in 100% oxygen for 90 minutes without air breaks. The patient tolerated hyperbaric oxygen well, without complications or complaints. Upon emergence of the hyperbaric chamber, the patient's vital signs remained stable. She was discharged in good condition. Pre-and post- blood sugar measurements are documented in the clinical panel. Past Medical History Chronic Problems (Last Updated 05/22/20 @ 14:[address] vEa Ding, DO) Skin graft (allograft) (autograft) failure (Chronic) Hidradenitis suppurativa of anus (Chronic) Nonhealing ulcer of right lower extremity with fat layer exposed (Chronic) Pilonidal cyst with abscess (Chronic) Extensive, complicated pilonidal cyst abscess Chronic ulcer of sacral region with fat layer exposed (Chronic) Ulcer of perianal area with fat layer exposed (Chronic) nonhealing hidradenitis ulcer bilateral perianal areas Atherosclerosis of coronary artery of [place] heart without angina pectoris (Chronic) Essential hypertension (Chronic) Anemia (Chronic) Asthma (Chronic) Chronic pneumonia (Chronic) Hyperlipidemia (Chronic) Type 2 diabetes mellitus (Chronic) Hypothyroidism (Chronic) COPD (chronic obstructive pulmonary disease) (Chronic) Allergies/Adverse Reactions: Allergies adhesive tape Allergy (Unknown, Verified 03/19/20 11:15) Other Severe itching azithromycin [From Zithromax] Allergy (Unknown, Verified 03/19/20 11:15) Shortness of breath Patient stated she also breaks out in a rash cephalexin [From Keflex] Allergy (Unknown, Verified 03/19/20 11:15) Shortness of breath Patient stated she also breaks out in a rash Home Medications: Ambulatory Orders Medication Instructions Recorded atorvastatin 80 mg tablet 80 mg PO DAILY 10/25/18 bimatoprost 0.01 % eye drops 1 drp OPHTHALMIC QPM 10/25/18 citalopram 20 mg tablet 20 mg PO DAILY 10/25/18 furosemide 40 mg tablet 40 mg PO DAILY 10/25/18 metformin 500 mg tablet 500 mg PO BID 10/25/18 polyethylene glycol 3350 17 gram 17 g PO DAILY PRN 10/25/18 oral powder packet potassium chloride 20 mEq oral 20 meq PO DAILY 10/25/18 packet pumpkin seed extract-soy germ 300 1 cap PO PRN PRN cap 10/25/18 mg capsule ropinirole 0.5 mg tablet 0.5 mg PO QHS 10/25/18 Latanoprost 0.005% [Xalatan 1 drp OPHTHALMIC (EYE) HS 12/03/18 Opthalmic] Levothyroxine [Synthroid] 175 mcg PO MOTUWETHFRSA 12/03/18 Nystatin Powder [Mycostatin Powder] 1 applic TOPICAL BID 12/03/18 Bisacodyl [Dulcolax] 10 mg PO DAILY PRN tab 01/18/19 Mineral Oil/Petrolatum,White 1 applic TOPICAL QHS jar 01/18/19 [Eucerin] Nutritional Supplement [Juice - 1 packet PO BIDCM #60 packet 01/18/19 ORANGE FLAVOR] Pantoprazole Sodium [Protonix] 40 mg PO DAILY #30 tab 01/18/19 Senna [Senokot] 2 tab PO BID tab 01/18/19 buPROPion SR [Wellbutrin SR (150mg 150 mg PO BID #60 tablet.sa 01/18/19 tablets)] hydrOXYzine pamoate capsule 50 mg PO 4X/DAY PRN PRN #120 cap 01/18/19 [Vistaril pamoate capsule] Rifampin [Rifadin] 300 mg PO BID #14 cap 01/25/19 Insulin NPH/Reg 70/30 [Novolin 50 units SUBCUT BIDAC 01/03/20 70/30] Lactobacillus Acidophilus/Fos 1 ea PO BID #30 tab 01/31/20 [Acidophilus Probiotic Tablet] amoxicillin 875 mg-potassium 1 tab PO BID 21 Days #42 tab 05/29/20 clavulanate 125 mg tablet lactobacillus combination no.8 3 3,000 mmu cells PO BID 60 Days 05/29/20 billion cell capsule #120 cap Maternal Family History: Family History (Last Reviewed 03/19/20 @ 11:19 by Basilia Quiros) Mother Lung cancer Anxiety Arthritis Depression (emotion) Diabetes Sister CVA (cerebral vascular accident) Anxiety Asthma Depression (emotion) Heart disease Aunt Arthritis Depression (emotion) Diabetes Daughter Cancer Grandmother Diabetes Grandfather Heart disease Psychiatric care CVA (cerebral vascular accident) Father COPD (chronic obstructive pulmonary disease) Family History: No pertinent history Paternal Family History: Family History (Last Reviewed 03/19/20 @ 11:19 by Basilia Quiros) Mother Lung cancer Anxiety Arthritis Depression (emotion) Diabetes Sister CVA (cerebral vascular accident) Anxiety Asthma Depression (emotion) Heart disease Aunt Arthritis Depression (emotion) Diabetes Daughter Cancer Grandmother Diabetes Grandfather Heart disease Psychiatric care CVA (cerebral vascular accident) Father COPD (chronic obstructive pulmonary disease) Family History: No pertinent history Smoking Status: Former smoker Tobacco Use: Non-smoker Physical Exam Vital Signs Temp Pulse Resp BP 96.4 F L 72 16 139/43 H 06/01/20 13:29 06/01/20 13:29 06/01/20 13:29 06/01/20 13:29 General: Alert, Cooperative, No apparent distress HEENT: Atraumatic, Normocephalic, TM's Clear Lungs: Clear to auscultation, Normal air movement, No rhonchi, No wheeze, No rales Cardiovascular: Regular rate, Regular Rhythm Psych/Mental Status: Normal Affect, Appropriate Assessment/Plan The patient appears to be tolerating hyperbaric oxygen therapy well, which will be continued as per the patient's medical plan. Treatment Course Number Number of HBO Treatments 30 Ordered Treatment Course Number 1 Treatment # 30 Chamber # [id number] Chamber Type Monoplace Diabetes - Detail Diabetes Diabetes Type II Diabetes Control Uncontrolled Other - Detail Compromised/Failed Flap/Graft Yes (specify site in comment) Treatment Plan ALEM (Atmospheric Absolute) 2 Number of Minutes 90 Number of Air Breaks 0
--- NOTE | 2020-06-03 15:30 | PCM.WC.PN ---
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 History of Wound: Surgery 01/31/20 - Surgical preparation bilateral perianal area with excisional debridement nonhealing recurrent hidradenitis ulcer with FTSG reconstruction from left lower back/superior gluteal area (6.25 cm2) and placement AmnioFill placental connective tissue powder (250 mg). Wound care - Silver. Operative culture - Negative. She was continued on Augmentin from a preop culture (12/23/19) that showed Streptococcus anginosus, Corynebacterium striatum, and Anaerobic cocci. Prealbumin from 02/17/20 was 13.0. Encourage nutritional supplementation with protein to help the healing process. HgbA1c from 04/11/19 was 7.4. There is compromise of the skin graft. Patient would benefit from HBO therapy to help salvage her graft and is tolerating the treatments thus far. Today she denies fever. Her appetite is ok. Progress of Wound: Slowly improving.The patient denies any fever, chills, nausea, vomiting, or diarrhea. Denies increasing pain, redness, swelling, or purulent/malodorous drainage from affected area. - Physical Exam Vital Signs Temp Pulse Resp BP 96.4 F L 72 16 139/43 H 06/01/20 13:29 06/01/20 13:29 06/01/20 13:29 06/01/20 13:29 General: Alert, Cooperative, No apparent distress HEENT: Atraumatic, Normocephalic Oral: Moist Mucosa Neck: Supple Lungs: Normal air movement Abdomen: Obese Extremities: Capillary Refill Less than 3 Seconds Skin: Ulcer/ Wound - Perianal ulcer with good granulation present. Decreased in size and improved in appearance. subcutaneous layer exposed, no tunneling, undermining, or probing to bone. No periulcer warmth or tenderness. Mild excoriation of periulcer area Wound Measurements and Assessment WC - Nurse 1 - General Ulcer Measurement Start: 05/07/20 11:47 Freq: Status: Active Protocol: Activity Type Activity Date Activity User E-Sign Co-Sign Detail Recorded Client Recorded Date Recorded By Document 06/01/20 12:50 DL [id number] 06/01/20 12:55 DL 06/01/20 12:50 Wound Center Nurse 1 [Ulcer Assessment] #2- coccyx/ Graft,post op -Current Size (cm) - Length 3 -Current Size (cm) - Width 0.8 -Current Size (cm) - Depth 0.1 -Total Square Cm 2.4 -Photo Taken No -Exudate Amt Small -Exudate Type Serosanguineous -Wound Margin Distinct, Outline Attached -Granulation Amt Large (67-100%) -Granulation Quality Red -Necrosis Amt Small (1-33%) -Necrotic Tissue Type Adherent Slough -Texture (Hailee-wound Skin Appearance) Scarring -Moisture (Hailee-wound Skin Appearance No Abnormality ) -Color (Hailee-wound Skin Appearance) No Abnormality -Temperature (Hailee-wound Skin No Abnormality Appearance) (Pt Warm) -Tenderness on Palpation (Hailee-wound No Skin Appearance) -Ulcer Cleansing Rinsed/ Irrigated with Saline -Foul Odor after Cleansing No -Anesthetic Used 5% Lidocaine Gel WC - Nurse 2 - General Ulcer CM Notes Start: 05/07/20 11:47 Freq: Status: Active Protocol: Activity Type Activity Date Activity User E-Sign Co-Sign Detail Recorded Client Recorded Date Recorded By Document 06/01/20 13:17 DL [id number] 06/01/20 13:18 DL 06/01/20 13:17 Wound Center Nurse 2 [Procedure/Treatment] -Time 13:17 -Correct Patient Yes -Correct Side, Site, Position Yes -Correct Procedure Yes -Procedure Performed Yes -Type of Procedure Debridement -Clinical Debridement Subcutaneous -Tissue Removed Subcutaneous -Post Debridement (cm) - Length 3.3 -Post Debridement (cm) - Width 0.9 -Post Debridement (cm) - Depth 0.1 -Total Square (Post) (cm) 2.97 -Area of Debridement (cm) - Length 3.3 -Area of Debridement (cm) - Width 0.9 -Total Square (Area) (cm) 2.97 -Tunneling No -Undermining/Tunneling No -Circular Undermining No -Wound/Ulcer Outcome Not Healed -Ulcer Cleansing Rinsed/ Irrigated with Saline -Foul Odor after Cleansing No -Bioengineered Tissue No -Bleeding Controlled with Pressure -Offloading No -Treatment Response Procedure Tolerated Well -Debridement - Subq, 1st 20sq cm Yes [See Physician Procedure note for Specifics] Pain Scale: 0-10 Numeric [Pain] -Is Patient Pain Free? Yes - Nurse 3 - General Ulcer D/C NN Start: 05/07/20 11:47 Freq: Status: Active Protocol: Activity Type Activity Date Activity User E-Sign Co-Sign Detail Recorded Client Recorded Date Recorded By Document 06/01/20 13:37 [facility] [id number] 06/01/20 13:37 [facility] 06/01/20 13:37 Wound Care Nurse 3 [Wound Dressing] #2- coccyx/ Graft,post op -Ulcer Cleansing Rinsed/ Irrigated with Saline -Foul Odor after Cleansing No -Primary Dressing Applied Aquacel AG 4x4 -Primary Dressing Covered/Secured Dry Gauze, with Secured with Tape -Aquacel AG 4x4 1 [Post Procedure Tolerated] -Treatment Response Procedure Tolerated Well Pain Scale: 0-10 Numeric [Pain] -Is Patient Pain Free? Yes - Visit Discharge [Visit Discharge Information] -Discharge Condition Stable -Ambulatory Status Wheelchair -Transportation Private Auto -Accompanied by Psych/Mental Status: Normal Affect, Appropriate Debridement Note Post-Debridement Measurements/Treatment - Nurse 2 - General Ulcer CM Notes Start: 05/07/20 11:47 Freq: Status: Active Protocol: Activity Type Activity Date Activity User E-Sign Co-Sign Detail Recorded Client Recorded Date Recorded By Document 05/15/20 10:45 PL [id number] 05/15/20 10:50 PL Document 05/25/20 13:41 JF [id number] 05/25/20 13:42 JF Document 06/01/20 13:17 JF [id number] 06/01/20 13:18 JF 05/15/20 05/25/20 06/01/20 10:45 13:41 13:17 Wound Center Nurse 2 #2- coccyx/ Graft,post op -Time 10:45 13:42 13:17 -Correct Patient Yes Yes Yes -Correct Side, Site, Position Yes Yes Yes -Correct Procedure Yes Yes Yes -Procedure Performed Yes Yes Yes -Type of Procedure Debridement Debridement Debridement -Clinical Debridement Subcutaneous Subcutaneous Subcutaneous -Tissue Removed Subcutaneous Subcutaneous Subcutaneous -Post Debridement (cm) - Length 3.5 3.3 3.3 -Post Debridement (cm) - Width 1.5 1.3 0.9 -Post Debridement (cm) - Depth 1.0 1.0 0.1 -Total Square (Post) (cm) 5.25 4.29 2.97 -Area of Debridement (cm) - Length 3.5 3.3 3.3 -Area of Debridement (cm) - Width 1.5 1.3 0.9 -Total Square (Area) (cm) 5.25 4.29 2.97 -Tunneling No No No -Undermining/Tunneling No No No -Circular Undermining No No No -Wound/Ulcer Outcome Not Healed Not Healed Not Healed -Ulcer Cleansing Rinsed/ Rinsed/ Irrigated with Irrigated with Saline Saline -Foul Odor after Cleansing No No -Bioengineered Tissue No No No -Bleeding Controlled with Pressure Pressure -Offloading No No -Treatment Response Procedure Procedure Tolerated Well Tolerated Well -Debridement - Subq, 1st 20sq cm Yes Yes Yes Pain Scale: 0-10 Numeric Is Patient Pain Free? Yes Yes Yes WC - Nurse 3 - General Ulcer D/C NN Start: 05/07/20 11:47 Freq: Status: Active Protocol: Activity Type Activity Date Activity User E-Sign Co-Sign Detail Recorded Client Recorded Date Recorded By Document 05/08/20 13:05 [id number] 05/08/20 13:07 JF Document 05/12/20 12:08 JF [id number] 05/12/20 12:11 JF Document 05/15/20 10:59 RB [id number] 05/15/20 11:00 RB Document 05/22/20 13:26 JF [id number] 05/22/20 13:28 JF Document 05/25/20 13:54 JF [id number] 05/25/20 13:54 JF Document 05/26/20 13:16 [id number] 05/26/20 13:24 JF Document 06/01/20 13:37 [facility] [id number] 06/01/20 13:37 BMF 05/08/20 05/12/20 05/15/20 13:05 12:08 10:59 Wound Care Nurse 3 #2- coccyx/ Graft,post op -Ulcer Cleansing Wound Cleanser -Foul Odor after Cleansing -Primary Dressing Applied Aquacel AG 2x2 -Primary Dressing Covered/Secured with Dry Gauze, Secured with Tape -Aquacel AG 4x4 -Aquacel AG 2x2 1 Treatment Response Procedure Tolerated Well Vital Signs Pulse Rate (60-100) 72 Pulse Location Monitor Blood Pressure (90/60-120/80) 137/31 H Blood Pressure Mean (mm Hg) 66 Source Monitor Position Semi-Fowlers Blood Pressure Location Left Arm Pain Scale: 0-10 Numeric Is Patient Pain Free? Yes Yes Yes WC - Visit Discharge Discharge Condition Stable Stable Stable Ambulatory Status Wheelchair Ambulatory, Wheelchair Wheelchair Transportation Private Auto Private Auto Private Auto Accompanied by Mango Cobian Medication Reconcilliation completed & Yes Yes No provided to patient/care provider Clinical Summary of Care Provided Yes Yes Yes 05/22/20 05/25/20 05/26/20 13:26 13:54 13:16 Wound Care Nurse 3 #2- coccyx/ Graft,post op -Ulcer Cleansing Rinsed/ Irrigated with Saline -Foul Odor after Cleansing No -Primary Dressing Applied Aquacel AG 4x4 -Primary Dressing Covered/Secured with Dry Gauze, Secured with Tape -Aquacel AG 4x4 1 -Aquacel AG 2x2 Treatment Response Vital Signs Pulse Rate (60-100) Pulse Location Blood Pressure (90/60-120/80) Blood Pressure Mean (mm Hg) Source Position Blood Pressure Location Pain Scale: 0-10 Numeric Is Patient Pain Free? Yes Yes WC - Visit Discharge Discharge Condition Stable Stable Stable Ambulatory Status Wheelchair Wheelchair Ambulatory, Wheelchair Transportation Private Auto Private Auto Private Auto Accompanied by Mango Cobian Medication Reconcilliation completed & Yes Yes Yes provided to patient/care provider Clinical Summary of Care Provided Yes Yes Yes 06/01/20 13:37 Wound Care Nurse 3 #2- coccyx/ Graft,post op -Ulcer Cleansing Rinsed/ Irrigated with Saline -Foul Odor after Cleansing No -Primary Dressing Applied Aquacel AG 4x4 -Primary Dressing Covered/Secured with Dry Gauze, Secured with Tape -Aquacel AG 4x4 1 -Aquacel AG 2x2 Treatment Response Procedure Tolerated Well Vital Signs Pulse Rate (60-100) Pulse Location Blood Pressure (90/60-120/80) Blood Pressure Mean (mm Hg) Source Position Blood Pressure Location Pain Scale: 0-10 Numeric Is Patient Pain Free? Yes WC - Visit Discharge Discharge Condition Stable Ambulatory Status Wheelchair Transportation Private Auto Accompanied by Medication Reconcilliation completed & provided to patient/care provider Clinical Summary of Care Provided Wound debrided: Perianal ulcer Laterality: Not Applicable Type of Debridement: Excisional debridement Anesthesia Used: 4% Lidocaine Solution Depth: in the subcutaneous layer Percentage of wound debrided: 100 Instrument Used: 7mm curette Tissue Removed: Slough and devitalized tissue Severity: Fat Layer Exposed Amount of bleeding with debridement: Mild Bleeding Controlled with: Pressure Patient tolerated procedure well Assessment/Plan Assessment: 1. Nonhealing recurrent hidradenitis ulcer bilateral perianal area. 2. Hidradenitis. 3. Diabetes. 4. Compromised skin graft bilateral perianal area. 5. Former smoker. Plan: Continue Silver dressing changes daily. She finished Augmentin for preop culture (12/23/19) that showed Streptococcus anginosus, Corynebacterium striatum, and Anaerobic cocci. The operative culture was negative. Another wound culture was done today. A positive culture will necessitate antibiotic therapy. Patient has compromised skin graft and would benefit from HBO treatments. She is tolerating the HBO treatments thus far and would benefit from continuing the HBO treatments. Her Prealbumin was 13.0 from 02/17/20. Encourage nutritional supplementation with protein to help the healing process. HgbA1c from 04/11/19 was 7.4. She also complains of incontinence ever since she had a baxter at surgery. We gave her the number for Dr. Fry, female urologist. Followup one week. Follow-up sooner should new or concerning symptoms arise. Note: [employer] speech recognition commissions analyst software was used to create portions of this document. Sound-alike and misspelled words, as well as other commissions analyst errors may be contained in the documentation. [id number]: [id number] Kacey subq tissue 20 sq cm/<
== END 2020-06-06 23:59 ==
LOC: WC 10:30
PROVIDERS: Family Provider Nurse Practitioner Family; PCP Student in an Organized Health Care Education/Training Program; Referring Provider Surgery; Visit Provider Surgery
DX: L73.2 Hidradenitis suppurativa (principal); T86.821 Skin graft (allograft) (autograft) failure; Y83.2 Surgical operation with anastomosis, bypass or graft as the cause of abnormal reaction of the patient, or of later complication, without mention of misadventure at the time of the procedure; L98.492 Non-pressure chronic ulcer of skin of other sites with fat layer exposed; E11.622 Type 2 diabetes mellitus with other skin ulcer; Z87.891 Personal history of nicotine dependence; J44.9 Chronic obstructive pulmonary disease, unspecified; E78.5 Hyperlipidemia, unspecified; I25.10 Atherosclerotic heart disease of native coronary artery without angina pectoris; E03.9 Hypothyroidism, unspecified; Z79.899 Other long term (current) drug therapy; Z79.4 Long term (current) use of insulin
CPT/HCPCS: 11042; 82962; 87070; 87075; 87077; 87186; 87205; 99183; G0277

== ENCOUNTER 2020-06-26 13:00 | Outpatient (RCR) | payer MEDICARE, OTHER, SELFPAY ==
[2020-06-07 00:08] VITALS: BP 139/43; PULSE 72; RESP 16; TEMP 35.8
[2020-06-09 10:16] VITALS: BMI 39.3
[2020-06-15 13:00] LABS: Bedside Glucose 147 mg/dL (70-110)
--- NOTE | 2020-06-15 13:36 | PCM.HBO.PN ---
History of Present Illness Date of Service: 06/15/20 Presenting Chief Complaint: Nonhealing recurrent hidradenitis ulcer bilateral perianal area with skin graft compromise. CHRISS VERA is a 75 year old currently undergoing hyperbaric oxygen therapy for Nonhealing recurrent hidradenitis ulcer bilateral perianal area with skin graft compromise. Progress: Today represents the 31st session of 50 planned sessions. Tolerance of hyperbaric oxygen therapy: Hyperbaric oxygen treatment was provided as per the facility's protocol at 2.0 ALEM in 100% oxygen for 90 minutes without air breaks. The patient tolerated hyperbaric oxygen well, without complications or complaints. Upon emergence of the hyperbaric chamber, the patient's vital signs remained stable. She was discharged in good condition. Pre-and post- blood sugar measurements are documented in the clinical panel. 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 (Chronic) Ulcer of perianal area with fat layer exposed (Chronic) nonhealing hidradenitis ulcer bilateral perianal areas Atherosclerosis of coronary artery of [place] heart without angina pectoris (Chronic) Essential hypertension (Chronic) Anemia (Chronic) Asthma (Chronic) Chronic pneumonia (Chronic) Hyperlipidemia (Chronic) Type 2 diabetes mellitus (Chronic) Hypothyroidism (Chronic) COPD (chronic obstructive pulmonary disease) (Chronic) Allergies/Adverse Reactions: Allergies adhesive tape Allergy (Unknown, Verified 06/09/20 10:17) Other Severe itching azithromycin [From Zithromax] Allergy (Unknown, Verified 06/09/20 10:17) Shortness of breath Patient stated she also breaks out in a rash cephalexin [From Keflex] Allergy (Unknown, Verified 06/09/20 10:17) Shortness of breath Patient stated she also breaks out in a rash Home Medications: Ambulatory Orders Medication Instructions Recorded atorvastatin 80 mg tablet 80 mg PO DAILY 10/25/18 bimatoprost 0.01 % eye drops 1 drp OPHTHALMIC QPM 10/25/18 citalopram 20 mg tablet 20 mg PO DAILY 10/25/18 furosemide 40 mg tablet 40 mg PO DAILY 10/25/18 metformin 500 mg tablet 500 mg PO BID 10/25/18 polyethylene glycol 3350 17 gram 17 g PO DAILY PRN 10/25/18 oral powder packet potassium chloride 20 mEq oral 20 meq PO DAILY 10/25/18 packet pumpkin seed extract-soy germ 300 1 cap PO PRN PRN cap 10/25/18 mg capsule ropinirole 0.5 mg tablet 0.5 mg PO QHS 10/25/18 Latanoprost 0.005% [Xalatan 1 drp OPHTHALMIC (EYE) HS 12/03/18 Opthalmic] Levothyroxine [Synthroid] 175 mcg PO [id number] 12/03/18 Nystatin Powder [Mycostatin Powder] 1 applic TOPICAL BID 12/03/18 Bisacodyl [Dulcolax] 10 mg PO DAILY PRN tab 01/18/19 Mineral Oil/Petrolatum,White 1 applic TOPICAL QHS jar 01/18/19 [Eucerin] Nutritional Supplement [Juice - 1 packet PO BIDCM #60 packet 01/18/19 ORANGE FLAVOR] Pantoprazole Sodium [Protonix] 40 mg PO DAILY #30 tab 01/18/19 Senna [Senokot] 2 tab PO BID tab 01/18/19 buPROPion SR [Wellbutrin SR (150mg 150 mg PO BID #60 tablet.sa 01/18/19 tablets)] hydrOXYzine pamoate capsule 50 mg PO 4X/DAY PRN PRN #120 cap 01/18/19 [Vistaril pamoate capsule] Rifampin [Rifadin] 300 mg PO BID #14 cap 01/25/19 Insulin NPH/Reg 70/30 [Novolin 50 units SUBCUT BIDAC 01/03/20 70/30] Lactobacillus Acidophilus/Fos 1 ea PO BID #30 tab 01/31/20 [Acidophilus Probiotic Tablet] amoxicillin 875 mg-potassium 1 tab PO BID 21 Days #42 tab 05/29/20 clavulanate 125 mg tablet lactobacillus combination no.8 3 3,000 mmu cells PO BID 60 Days 05/29/20 billion cell capsule #120 cap umeclidinium 62.5 mcg-vilanterol 1 inh INHALATION QDAY #60 ea 06/09/20 25 mcg/actuation powdr for inhalation Maternal Family History: Family History (Last Reviewed 06/09/20 @ 10:29 by Jackie Ivory [employer], [employer]-C) Mother Lung cancer Anxiety Arthritis Depression (emotion) Diabetes Sister CVA (cerebral vascular accident) Anxiety Asthma Depression (emotion) Heart disease Aunt Arthritis Depression (emotion) Diabetes Daughter Cancer Grandmother Diabetes Grandfather Heart disease Psychiatric care CVA (cerebral vascular accident) Father COPD (chronic obstructive pulmonary disease) Family History: No pertinent history Paternal Family History: Family History (Last Reviewed 06/09/20 @ 10:29 by Jackie Ivory [employer] T[employer]ER, [employer] T[employer]ER-C) Mother Lung cancer Anxiety Arthritis Depression (emotion) Diabetes Sister CVA (cerebral vascular accident) Anxiety Asthma Depression (emotion) Heart disease Aunt Arthritis Depression (emotion) Diabetes Daughter Cancer Grandmother Diabetes Grandfather Heart disease Psychiatric care CVA (cerebral vascular accident) Father COPD (chronic obstructive pulmonary disease) Family History: No pertinent history Smoking Status: Former smoker Tobacco Use: Non-smoker Physical Exam Vital Signs Temp Pulse Resp BP 96.4 F L 72 16 139/43 H 06/07/20 00:08 06/07/20 00:08 06/07/20 00:08 06/07/20 00:08 General: Alert, Oriented x3, Cooperative, No apparent distress HEENT: Atraumatic, TM's Clear Lungs: Clear to auscultation, Normal air movement Cardiovascular: Regular rate, Regular Rhythm Psych/Mental Status: Normal Affect, Appropriate, Alert and oriented to time, place, person, mood and affect Assessment/Plan Treatment Course Number Treatment Course Number 1 Treatment # 31 Diabetes - Detail Diabetes Diabetes Type II Other - Detail Compromised/Failed Flap/Graft Yes (specify site in comment)
[2020-06-15 13:45] VITALS: BP 116/52; BP 181/81; PULSE 75; PULSE 85; RESP 16; RESP 18; TEMP 36.3; TEMP 36.6
[2020-06-15 15:21] LABS: Bedside Glucose 83 mg/dL (70-110)
[2020-06-16 13:00] LABS: Bedside Glucose 206 mg/dL (70-110)
--- NOTE | 2020-06-16 13:13 | HBO.PN.PCM_ITS ---
History of Present Illness Date of Service: 06/16/20 Presenting Chief Complaint: Nonhealing recurrent hidradenitis ulcer bilateral perianal area with skin graft compromise. CHRISS VERA is a 75 year old currently undergoing hyperbaric oxygen therapy for Nonhealing recurrent hidradenitis ulcer bilateral perianal area with skin graft compromise. Progress: Today represents the 32nd session of 50 planned sessions. Tolerance of hyperbaric oxygen therapy: Hyperbaric oxygen treatment was provided as per the facility's protocol at 2.0 ALEM in 100% oxygen for 59 minutes without air breaks. Treatment was ended 31 minutes early due to the patient having a full bladder and feeling uncomfortable. The patient tolerated hyperbaric oxygen well, without complications or complaints. Upon emergence of the hyperbaric chamber, the patient's vital signs remained stable. She was discharged in good condition. Pre-and post- blood sugar measurements are documented in the clinical panel. 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) Ulcer of perianal area with fat layer exposed (Chronic) nonhealing hidradenitis ulcer bilateral perianal areas Atherosclerosis of coronary artery of [place] heart without angina pectoris (Chronic) Essential hypertension (Chronic) Anemia (Chronic) Asthma (Chronic) Chronic pneumonia (Chronic) Hyperlipidemia (Chronic) Type 2 diabetes mellitus (Chronic) Hypothyroidism (Chronic) COPD (chronic obstructive pulmonary disease) (Chronic) Allergies/Adverse Reactions: Allergies adhesive tape Allergy (Unknown, Verified 06/09/20 10:17) Other Severe itching azithromycin [From Zithromax] Allergy (Unknown, Verified 06/09/20 10:17) Shortness of breath Patient stated she also breaks out in a rash cephalexin [From Keflex] Allergy (Unknown, Verified 06/09/20 10:17) Shortness of breath Patient stated she also breaks out in a rash Home Medications: Ambulatory Orders Medication Instructions Recorded atorvastatin 80 mg tablet 80 mg PO DAILY 10/25/18 bimatoprost 0.01 % eye drops 1 drp OPHTHALMIC QPM 10/25/18 citalopram 20 mg tablet 20 mg PO DAILY 10/25/18 furosemide 40 mg tablet 40 mg PO DAILY 10/25/18 metformin 500 mg tablet 500 mg PO BID 10/25/18 polyethylene glycol 3350 17 gram 17 g PO DAILY PRN 10/25/18 oral powder packet potassium chloride 20 mEq oral 20 meq PO DAILY 10/25/18 packet pumpkin seed extract-soy germ 300 1 cap PO PRN PRN cap 10/25/18 mg capsule ropinirole 0.5 mg tablet 0.5 mg PO QHS 10/25/18 Latanoprost 0.005% [Xalatan 1 drp OPHTHALMIC (EYE) HS 12/03/18 Opthalmic] Levothyroxine [Synthroid] 175 mcg PO MOTUWETHFRSA 12/03/18 Nystatin Powder [Mycostatin Powder] 1 applic TOPICAL BID 12/03/18 Bisacodyl [Dulcolax] 10 mg PO DAILY PRN tab 01/18/19 Mineral Oil/Petrolatum,White 1 applic TOPICAL QHS jar 01/18/19 [Eucerin] Nutritional Supplement [Juice - 1 packet PO BIDCM #60 packet 01/18/19 ORANGE FLAVOR] Pantoprazole Sodium [Protonix] 40 mg PO DAILY #30 tab 01/18/19 Senna [Senokot] 2 tab PO BID tab 01/18/19 buPROPion SR [Wellbutrin SR (150mg 150 mg PO BID #60 tablet.sa 01/18/19 tablets)] hydrOXYzine pamoate capsule 50 mg PO 4X/DAY PRN PRN #120 cap 01/18/19 [Vistaril pamoate capsule] Rifampin [Rifadin] 300 mg PO BID #14 cap 01/25/19 Insulin NPH/Reg 70/30 [Novolin 50 units SUBCUT BIDAC 01/03/20 70/30] Lactobacillus Acidophilus/Fos 1 ea PO BID #30 tab 01/31/20 [Acidophilus Probiotic Tablet] amoxicillin 875 mg-potassium 1 tab PO BID 21 Days #42 tab 05/29/20 clavulanate 125 mg tablet lactobacillus combination no.8 3 3,000 mmu cells PO BID 60 Days 05/29/20 billion cell capsule #120 cap umeclidinium 62.5 mcg-vilanterol 1 inh INHALATION QDAY #60 ea 06/09/20 25 mcg/actuation powdr for inhalation Maternal Family History: Family History (Last Reviewed 06/09/20 @ 10:29 by Jackie Ivory STATION MECHANIC APPRENTICE, STATION MECHANIC APPRENTICE-C) Mother Lung cancer Anxiety Arthritis Depression (emotion) Diabetes Sister CVA (cerebral vascular accident) Anxiety Asthma Depression (emotion) Heart disease Aunt Arthritis Depression (emotion) Diabetes Daughter Cancer Grandmother Diabetes Grandfather Heart disease Psychiatric care CVA (cerebral vascular accident) Father COPD (chronic obstructive pulmonary disease) Family History: No pertinent history Paternal Family History: Family History (Last Reviewed 06/09/20 @ 10:29 by Jackie Ivory STATION MECHANIC APPRENTICE, STATION MECHANIC APPRENTICE-C) Mother Lung cancer Anxiety Arthritis Depression (emotion) Diabetes Sister CVA (cerebral vascular accident) Anxiety Asthma Depression (emotion) Heart disease Aunt Arthritis Depression (emotion) Diabetes Daughter Cancer Grandmother Diabetes Grandfather Heart disease Psychiatric care CVA (cerebral vascular accident) Father COPD (chronic obstructive pulmonary disease) Family History: No pertinent history Smoking Status: Former smoker Tobacco Use: Non-smoker Physical Exam Vital Signs Temp Pulse Resp BP 97.8 F 85 16 116/52 L 06/15/20 13:45 06/15/20 13:45 06/15/20 13:45 06/15/20 13:45 General: Alert, Oriented x3, Cooperative, No apparent distress HEENT: Atraumatic, TM's Clear Lungs: Clear to auscultation, Normal air movement Cardiovascular: Regular rate, Regular Rhythm Psych/Mental Status: Normal Affect, Appropriate, Alert and oriented to time, place, person, mood and affect Assessment/Plan Treatment Course Number Number of HBO Treatments 50 Ordered Treatment Course Number 1 Treatment # 32 Chamber # [id number] Chamber Type Monoplace Diabetes - Detail Diabetes Diabetes Type II Other - Detail Compromised/Failed Flap/Graft Yes (specify site in comment) Treatment Plan ALEM (Atmospheric Absolute) 2 Number of Minutes 90 Number of Air Breaks 0
[2020-06-16 15:10] LABS: Bedside Glucose 112 mg/dL (70-110)
[2020-06-16 15:16] VITALS: BP 108/69; BP 136/58; PULSE 72; PULSE 83; RESP 16; RESP 18; TEMP 36; TEMP 36.3
[2020-06-17 13:25] LABS: Bedside Glucose 178 mg/dL (70-110)
[2020-06-17 13:28] VITALS: BP 138/99; BP 146/45; PULSE 70; PULSE 83; RESP 16; TEMP 36.1; TEMP 36.6
--- NOTE | 2020-06-17 13:57 | HBO.PN.PCM_ITS ---
History of Present Illness Date of Service: 06/17/20 Presenting Chief Complaint: Nonhealing recurrent hidradenitis ulcer bilateral perianal area with skin graft compromise. CHRISS VERA is a 75 year old currently undergoing hyperbaric oxygen therapy for Nonhealing recurrent hidradenitis ulcer bilateral perianal area with skin graft compromise. Progress: Today represents the 33rd session of 50 planned sessions. Tolerance of hyperbaric oxygen therapy: Hyperbaric oxygen treatment was provided as per the facility's protocol at 2.0 ALEM in 100% oxygen for 59 minutes without air breaks. Treatment was ended 31 minutes early due to the patient having a full bladder and feeling uncomfortable. The patient tolerated hyperbaric oxygen well, without complications or complaints. Upon emergence of the hyperbaric chamber, the patient's vital signs remained stable. She was discharged in good condition. Pre-and post- blood sugar measurements are documented in the clinical panel. Past Medical History Chronic Problems (Last Reviewed 06/09/20 @ 10:29 by Jackie Ivory GEODETIC SURVEYOR, GEODETIC SURVEYOR-C) Chronic hypoxemic respiratory failure (Chronic) 2 L/min at all times Stage 2 moderate COPD by GOLD classification (Chronic) FEV1 58% of predicted Skin graft (allograft) (autograft) failure (Chronic) Hidradenitis suppurativa of anus (Chronic) Nonhealing ulcer of right lower extremity with fat layer exposed (Chronic) Pilonidal cyst with abscess (Chronic) Extensive, complicated pilonidal cyst abscess Chronic ulcer of sacral region with fat layer exposed (Chronic) Ulcer of perianal area with fat layer exposed (Chronic) nonhealing hidradenitis ulcer bilateral perianal areas Atherosclerosis of coronary artery of [place] heart without angina pectoris (Chronic) Essential hypertension (Chronic) Anemia (Chronic) Asthma (Chronic) Chronic pneumonia (Chronic) Hyperlipidemia (Chronic) Type 2 diabetes mellitus (Chronic) Hypothyroidism (Chronic) COPD (chronic obstructive pulmonary disease) (Chronic) Allergies/Adverse Reactions: Allergies adhesive tape Allergy (Unknown, Verified 06/09/20 10:17) Other Severe itching azithromycin [From Zithromax] Allergy (Unknown, Verified 06/09/20 10:17) Shortness of breath Patient stated she also breaks out in a rash cephalexin [From Keflex] Allergy (Unknown, Verified 06/09/20 10:17) Shortness of breath Patient stated she also breaks out in a rash Home Medications: Ambulatory Orders Medication Instructions Recorded atorvastatin 80 mg tablet 80 mg PO DAILY 10/25/18 bimatoprost 0.01 % eye drops 1 drp OPHTHALMIC QPM 10/25/18 citalopram 20 mg tablet 20 mg PO DAILY 10/25/18 furosemide 40 mg tablet 40 mg PO DAILY 10/25/18 metformin 500 mg tablet 500 mg PO BID 10/25/18 polyethylene glycol 3350 17 gram 17 g PO DAILY PRN 10/25/18 oral powder packet potassium chloride 20 mEq oral 20 meq PO DAILY 10/25/18 packet pumpkin seed extract-soy germ 300 1 cap PO PRN PRN cap 10/25/18 mg capsule ropinirole 0.5 mg tablet 0.5 mg PO QHS 10/25/18 Latanoprost 0.005% [Xalatan 1 drp OPHTHALMIC (EYE) HS 12/03/18 Opthalmic] Levothyroxine [Synthroid] 175 mcg PO MOTUWETHFRSA 12/03/18 Nystatin Powder [Mycostatin Powder] 1 applic TOPICAL BID 12/03/18 Bisacodyl [Dulcolax] 10 mg PO DAILY PRN tab 01/18/19 Mineral Oil/Petrolatum,White 1 applic TOPICAL QHS jar 01/18/19 [Eucerin] Nutritional Supplement [Juice - 1 packet PO BIDCM #60 packet 01/18/19 ORANGE FLAVOR] Pantoprazole Sodium [Protonix] 40 mg PO DAILY #30 tab 01/18/19 Senna [Senokot] 2 tab PO BID tab 01/18/19 buPROPion SR [Wellbutrin SR (150mg 150 mg PO BID #60 tablet.sa 01/18/19 tablets)] hydrOXYzine pamoate capsule 50 mg PO 4X/DAY PRN PRN #120 cap 01/18/19 [Vistaril pamoate capsule] Rifampin [Rifadin] 300 mg PO BID #14 cap 01/25/19 Insulin NPH/Reg 70/30 [Novolin 50 units SUBCUT BIDAC 01/03/20 70/30] Lactobacillus Acidophilus/Fos 1 ea PO BID #30 tab 01/31/20 [Acidophilus Probiotic Tablet] amoxicillin 875 mg-potassium 1 tab PO BID 21 Days #42 tab 05/29/20 clavulanate 125 mg tablet lactobacillus combination no.8 3 3,000 mmu cells PO BID 60 Days 05/29/20 billion cell capsule #120 cap umeclidinium 62.5 mcg-vilanterol 1 inh INHALATION QDAY #60 ea 06/09/20 25 mcg/actuation powdr for inhalation Maternal Family History: Family History (Last Reviewed 06/09/20 @ 10:29 by Jackie Ivory GEODETIC SURVEYOR, GEODETIC SURVEYOR-C) Mother Lung cancer Anxiety Arthritis Depression (emotion) Diabetes Sister CVA (cerebral vascular accident) Anxiety Asthma Depression (emotion) Heart disease Aunt Arthritis Depression (emotion) Diabetes Daughter Cancer Grandmother Diabetes Grandfather Heart disease Psychiatric care CVA (cerebral vascular accident) Father COPD (chronic obstructive pulmonary disease) Family History: No pertinent history Paternal Family History: Family History (Last Reviewed 06/09/20 @ 10:29 by Jackie Ivory GEODETIC SURVEYOR, GEODETIC SURVEYOR-C) Mother Lung cancer Anxiety Arthritis Depression (emotion) Diabetes Sister CVA (cerebral vascular accident) Anxiety Asthma Depression (emotion) Heart disease Aunt Arthritis Depression (emotion) Diabetes Daughter Cancer Grandmother Diabetes Grandfather Heart disease Psychiatric care CVA (cerebral vascular accident) Father COPD (chronic obstructive pulmonary disease) Family History: No pertinent history Smoking Status: Former smoker Tobacco Use: Non-smoker Physical Exam Vital Signs Temp Pulse Resp BP 97.0 F L 83 16 146/45 H 06/17/20 13:28 06/17/20 13:28 06/17/20 13:28 06/17/20 13:28 General: Alert, Oriented x3, Cooperative, No apparent distress HEENT: Atraumatic, TM's Clear Lungs: Clear to auscultation, Normal air movement Cardiovascular: Regular rate, Regular Rhythm Psych/Mental Status: Normal Affect, Appropriate, Alert and oriented to time, place, person, mood and affect Assessment/Plan Treatment Course Number Number of HBO Treatments 50 Ordered Treatment Course Number 1 Treatment # 32 Chamber # 1 Chamber Type Monoplace Diabetes - Detail Diabetes Diabetes Type II Other - Detail Compromised/Failed Flap/Graft Yes (specify site in comment) Treatment Plan ALEM (Atmospheric Absolute) 2 Number of Minutes 90 Number of Air Breaks 0
[2020-06-17 15:16] LABS: Bedside Glucose 173 mg/dL (70-110)
[2020-06-23 10:50] VITALS: BP 151/50; BP 156/60; PULSE 69; PULSE 72; RESP 16; RESP 17; TEMP 36.1; TEMP 36.2
[2020-06-23 12:05] LABS: Bedside Glucose 212 mg/dL (70-110)
[2020-06-23 12:36] LABS: Bedside Glucose 237 mg/dL (70-110)
--- NOTE | 2020-06-23 14:46 | PCM.HBO.PN ---
History of Present Illness Date of Service: 06/23/20 Presenting Chief Complaint: Nonhealing recurrent hidradenitis ulcer bilateral perianal area with skin graft compromise. CHRISS VERA is a 75 year old currently undergoing hyperbaric oxygen therapy for non-healing recurrent hidradenitis ulcer bilateral perianal area with skin graft compromise. Progress: Today represents the 34th session of 50 planned sessions. Tolerance of hyperbaric oxygen therapy: Hyperbaric oxygen treatment was provided as per the facility's protocol at 2.0 ALEM in 100% oxygen for 90 minutes without air breaks. The patient tolerated hyperbaric oxygen therapy well, without complications or complaints. Upon emergence of the hyperbaric chamber, the patient's vital signs remained stable. She was discharged in good condition. Pre-and post- blood sugar measurements are documented in the clinical panel. Past Medical History Chronic Problems (Last Reviewed 06/09/20 @ 10:29 by Jackie Ivory SENIOR MICROSTRATEGY DEVELOPER, SENIOR MICROSTRATEGY DEVELOPER-C) Chronic hypoxemic respiratory failure (Chronic) 2 L/min at all times Stage 2 moderate COPD by GOLD classification (Chronic) FEV1 58% of predicted Skin graft (allograft) (autograft) failure (Chronic) Hidradenitis suppurativa of anus (Chronic) Nonhealing ulcer of right lower extremity with fat layer exposed (Chronic) Pilonidal cyst with abscess (Chronic) Extensive, complicated pilonidal cyst abscess Chronic ulcer of sacral region with fat layer exposed (Chronic) Ulcer of perianal area with fat layer exposed (Chronic) nonhealing hidradenitis ulcer bilateral perianal areas Atherosclerosis of coronary artery of [place] heart without angina pectoris (Chronic) Essential hypertension (Chronic) Anemia (Chronic) Asthma (Chronic) Chronic pneumonia (Chronic) Hyperlipidemia (Chronic) Type 2 diabetes mellitus (Chronic) Hypothyroidism (Chronic) COPD (chronic obstructive pulmonary disease) (Chronic) Allergies/Adverse Reactions: Allergies adhesive tape Allergy (Unknown, Verified 06/09/20 10:17) Other Severe itching azithromycin [From Zithromax] Allergy (Unknown, Verified 06/09/20 10:17) Shortness of breath Patient stated she also breaks out in a rash cephalexin [From Keflex] Allergy (Unknown, Verified 06/09/20 10:17) Shortness of breath Patient stated she also breaks out in a rash Home Medications: Ambulatory Orders Medication Instructions Recorded atorvastatin 80 mg tablet 80 mg PO DAILY 10/25/18 bimatoprost 0.01 % eye drops 1 drp OPHTHALMIC QPM 10/25/18 citalopram 20 mg tablet 20 mg PO DAILY 10/25/18 furosemide 40 mg tablet 40 mg PO DAILY 10/25/18 metformin 500 mg tablet 500 mg PO BID 10/25/18 polyethylene glycol 3350 17 gram 17 g PO DAILY PRN 10/25/18 oral powder packet potassium chloride 20 mEq oral 20 meq PO DAILY 10/25/18 packet pumpkin seed extract-soy germ 300 1 cap PO PRN PRN cap 10/25/18 mg capsule ropinirole 0.5 mg tablet 0.5 mg PO QHS 10/25/18 Latanoprost 0.005% [Xalatan 1 drp OPHTHALMIC (EYE) HS 12/03/18 Opthalmic] Levothyroxine [Synthroid] 175 mcg PO MOTUWETHFRSA 12/03/18 Nystatin Powder [Mycostatin Powder] 1 applic TOPICAL BID 12/03/18 Bisacodyl [Dulcolax] 10 mg PO DAILY PRN tab 01/18/19 Mineral Oil/Petrolatum,White 1 applic TOPICAL QHS jar 01/18/19 [Eucerin] Nutritional Supplement [Juice - 1 packet PO BIDCM #60 packet 01/18/19 ORANGE FLAVOR] Pantoprazole Sodium [Protonix] 40 mg PO DAILY #30 tab 01/18/19 Senna [Senokot] 2 tab PO BID tab 01/18/19 buPROPion SR [Wellbutrin SR (150mg 150 mg PO BID #60 tablet.sa 01/18/19 tablets)] hydrOXYzine pamoate capsule 50 mg PO 4X/DAY PRN PRN #120 cap 01/18/19 [Vistaril pamoate capsule] Rifampin [Rifadin] 300 mg PO BID #14 cap 01/25/19 Insulin NPH/Reg 70/30 [Novolin 50 units SUBCUT BIDAC 01/03/20 70/30] Lactobacillus Acidophilus/Fos 1 ea PO BID #30 tab 01/31/20 [Acidophilus Probiotic Tablet] amoxicillin 875 mg-potassium 1 tab PO BID 21 Days #42 tab 05/29/20 clavulanate 125 mg tablet lactobacillus combination no.8 3 3,000 mmu cells PO BID 60 Days 05/29/20 billion cell capsule #120 cap umeclidinium 62.5 mcg-vilanterol 1 inh INHALATION QDAY #60 ea 06/09/20 25 mcg/actuation powdr for inhalation Maternal Family History: Family History (Last Reviewed 06/09/20 @ 10:29 by Jackie Ivory SENIOR MICROSTRATEGY DEVELOPER, SENIOR MICROSTRATEGY DEVELOPER-C) Mother Lung cancer Anxiety Arthritis Depression (emotion) Diabetes Sister CVA (cerebral vascular accident) Anxiety Asthma Depression (emotion) Heart disease Aunt Arthritis Depression (emotion) Diabetes Daughter Cancer Grandmother Diabetes Grandfather Heart disease Psychiatric care CVA (cerebral vascular accident) Father COPD (chronic obstructive pulmonary disease) Family History: No pertinent history Paternal Family History: Family History (Last Reviewed 06/09/20 @ 10:29 by Jackie Ivory SENIOR MICROSTRATEGY DEVELOPER, SENIOR MICROSTRATEGY DEVELOPER-C) Mother Lung cancer Anxiety Arthritis Depression (emotion) Diabetes Sister CVA (cerebral vascular accident) Anxiety Asthma Depression (emotion) Heart disease Aunt Arthritis Depression (emotion) Diabetes Daughter Cancer Grandmother Diabetes Grandfather Heart disease Psychiatric care CVA (cerebral vascular accident) Father COPD (chronic obstructive pulmonary disease) Family History: No pertinent history Smoking Status: Former smoker Tobacco Use: Non-smoker Physical Exam Vital Signs Temp Pulse Resp BP 97.0 F L 72 16 156/60 H 06/23/20 10:50 06/23/20 10:50 06/23/20 10:50 06/23/20 10:50 General: Alert, Oriented x3, Cooperative, No apparent distress, Well developed, Well nourished HEENT: Atraumatic, PERRLA, EOMI, Normocephalic Lungs: Normal air movement Psych/Mental Status: Normal Affect, Appropriate, Alert and oriented to time, place, person, mood and affect Assessment/Plan The patient appears to be tolerating hyperbaric oxygen therapy well, which will be continued as per the patient's medical plan. Treatment Course Number Number of HBO Treatments 50 Ordered Treatment Course Number 1 Treatment # 34 Chamber # 2 Chamber Type Monoplace Diabetes - Detail Diabetes Diabetes Type II Other - Detail Compromised/Failed Flap/Graft Yes (specify site in comment) Treatment Plan ALEM (Atmospheric Absolute) 2 Number of Minutes 90 Number of Air Breaks 0
[2020-06-24 13:10] LABS: Bedside Glucose 199 mg/dL (70-110)
[2020-06-24 13:26] VITALS: BP 133/55; BP 150/64; PULSE 65; PULSE 84; RESP 16; RESP 17; TEMP 36.2; TEMP 36.3
--- NOTE | 2020-06-24 16:05 | HBO.PN.PCM_ITS ---
History of Present Illness Date of Service: 06/24/20 Presenting Chief Complaint: Nonhealing recurrent hidradenitis ulcer bilateral perianal area with skin graft compromise. CHRISS VERA is a 75 year old currently undergoing hyperbaric oxygen therapy for non-healing recurrent hidradenitis ulcer bilateral perianal area with skin graft compromise. Progress: Today represents the 35th session of 50 planned sessions. Tolerance of hyperbaric oxygen therapy: Hyperbaric oxygen treatment was provided as per the facility's protocol at 2.0 ALEM in 100% oxygen for 90 minutes without air breaks. The patient tolerated hyperbaric oxygen therapy well, without complications or complaints. Upon emergence of the hyperbaric chamber, the patient's vital signs remained stable. She was discharged in good condition. Pre-and post- blood sugar measurements are documented in the clinical panel. 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) Ulcer of perianal area with fat layer exposed (Chronic) nonhealing hidradenitis ulcer bilateral perianal areas Atherosclerosis of coronary artery of [place] heart without angina pectoris (Chronic) Essential hypertension (Chronic) Anemia (Chronic) Asthma (Chronic) Chronic pneumonia (Chronic) Hyperlipidemia (Chronic) Type 2 diabetes mellitus (Chronic) Hypothyroidism (Chronic) COPD (chronic obstructive pulmonary disease) (Chronic) Allergies/Adverse Reactions: Allergies adhesive tape Allergy (Unknown, Verified 06/09/20 10:17) Other Severe itching azithromycin [From Zithromax] Allergy (Unknown, Verified 06/09/20 10:17) Shortness of breath Patient stated she also breaks out in a rash cephalexin [From Keflex] Allergy (Unknown, Verified 06/09/20 10:17) Shortness of breath Patient stated she also breaks out in a rash Home Medications: Ambulatory Orders Medication Instructions Recorded atorvastatin 80 mg tablet 80 mg PO DAILY 10/25/18 bimatoprost 0.01 % eye drops 1 drp OPHTHALMIC QPM 10/25/18 citalopram 20 mg tablet 20 mg PO DAILY 10/25/18 furosemide 40 mg tablet 40 mg PO DAILY 10/25/18 metformin 500 mg tablet 500 mg PO BID 10/25/18 polyethylene glycol 3350 17 gram 17 g PO DAILY PRN 10/25/18 oral powder packet potassium chloride 20 mEq oral 20 meq PO DAILY 10/25/18 packet pumpkin seed extract-soy germ 300 1 cap PO PRN PRN cap 10/25/18 mg capsule ropinirole 0.5 mg tablet 0.5 mg PO QHS 10/25/18 Latanoprost 0.005% [Xalatan 1 drp OPHTHALMIC (EYE) HS 12/03/18 Opthalmic] Levothyroxine [Synthroid] 175 mcg PO MOTUWETHFRSA 12/03/18 Nystatin Powder [Mycostatin Powder] 1 applic TOPICAL BID 12/03/18 Bisacodyl [Dulcolax] 10 mg PO DAILY PRN tab 01/18/19 Mineral Oil/Petrolatum,White 1 applic TOPICAL QHS jar 01/18/19 [Eucerin] Nutritional Supplement [Juice - 1 packet PO BIDCM #60 packet 01/18/19 ORANGE FLAVOR] Pantoprazole Sodium [Protonix] 40 mg PO DAILY #30 tab 01/18/19 Senna [Senokot] 2 tab PO BID tab 01/18/19 buPROPion SR [Wellbutrin SR (150mg 150 mg PO BID #60 tablet.sa 01/18/19 tablets)] hydrOXYzine pamoate capsule 50 mg PO 4X/DAY PRN PRN #120 cap 01/18/19 [Vistaril pamoate capsule] Rifampin [Rifadin] 300 mg PO BID #14 cap 01/25/19 Insulin NPH/Reg 70/30 [Novolin 50 units SUBCUT BIDAC 01/03/20 70/30] Lactobacillus Acidophilus/Fos 1 ea PO BID #30 tab 01/31/20 [Acidophilus Probiotic Tablet] amoxicillin 875 mg-potassium 1 tab PO BID 21 Days #42 tab 05/29/20 clavulanate 125 mg tablet lactobacillus combination no.8 3 3,000 mmu cells PO BID 60 Days 05/29/20 billion cell capsule #120 cap umeclidinium 62.5 mcg-vilanterol 1 inh INHALATION QDAY #60 ea 06/09/20 25 mcg/actuation powdr for inhalation Maternal Family History: Family History (Last Reviewed 06/09/20 @ 10:29 by Jackie Ivory DISTANCE EDUCATION DIRECTOR, DISTANCE EDUCATION DIRECTOR-C) Mother Lung cancer Anxiety Arthritis Depression (emotion) Diabetes Sister CVA (cerebral vascular accident) Anxiety Asthma Depression (emotion) Heart disease Aunt Arthritis Depression (emotion) Diabetes Daughter Cancer Grandmother Diabetes Grandfather Heart disease Psychiatric care CVA (cerebral vascular accident) Father COPD (chronic obstructive pulmonary disease) Family History: No pertinent history Paternal Family History: Family History (Last Reviewed 06/09/20 @ 10:29 by Jackie Ivory DISTANCE EDUCATION DIRECTOR, DISTANCE EDUCATION DIRECTOR-C) Mother Lung cancer Anxiety Arthritis Depression (emotion) Diabetes Sister CVA (cerebral vascular accident) Anxiety Asthma Depression (emotion) Heart disease Aunt Arthritis Depression (emotion) Diabetes Daughter Cancer Grandmother Diabetes Grandfather Heart disease Psychiatric care CVA (cerebral vascular accident) Father COPD (chronic obstructive pulmonary disease) Family History: No pertinent history Smoking Status: Former smoker Tobacco Use: Non-smoker Physical Exam Vital Signs Temp Pulse Resp BP 97.2 F L 84 16 133/55 H 06/24/20 13:26 06/24/20 13:26 06/24/20 13:26 06/24/20 13:26 General: Alert, Oriented x3, Cooperative, No apparent distress HEENT: Atraumatic, Normocephalic, TM's Clear Lungs: Clear to auscultation, Normal air movement, No rhonchi, No wheeze, No rales Cardiovascular: Regular rate, Regular Rhythm Psych/Mental Status: Normal Affect, Appropriate Assessment/Plan The patient appears to be tolerating hyperbaric oxygen therapy well, which will be continued as per the patient's medical plan. Treatment Course Number Number of HBO Treatments 50 Ordered Treatment Course Number 1 Treatment # 35 Chamber # 1 Chamber Type Monoplace Diabetes - Detail Diabetes Diabetes Type II Other - Detail Compromised/Failed Flap/Graft Yes (specify site in comment) Treatment Plan ALEM (Atmospheric Absolute) 2 Number of Minutes 90 Number of Air Breaks 0
[2020-06-25 07:11] LABS: Bedside Glucose 132 mg/dL (70-110)
[2020-06-25 13:20] LABS: Bedside Glucose 212 mg/dL (70-110)
[2020-06-25 13:48] VITALS: BP 136/47; BP 149/66; PULSE 76; PULSE 82; RESP 16; RESP 17; TEMP 35.5; TEMP 36.1
[2020-06-25 15:26] LABS: Bedside Glucose 181 mg/dL (70-110)
--- NOTE | 2020-06-25 15:56 | PCM.HBO.PN ---
History of Present Illness Date of Service: 06/25/20 Presenting Chief Complaint: Nonhealing recurrent hidradenitis ulcer bilateral perianal area with skin graft compromise. CHRISS VERA is a 75 year old currently undergoing hyperbaric oxygen therapy for non-healing recurrent hidradenitis ulcer bilateral perianal area with skin graft compromise. Progress: Today represents the 37th session of 50 planned sessions. Tolerance of hyperbaric oxygen therapy: Hyperbaric oxygen treatment was provided as per the facility's protocol at 2.0 ALEM in 100% oxygen for 90 minutes without air breaks. The patient tolerated hyperbaric oxygen therapy well, without complications or complaints. Upon emergence of the hyperbaric chamber, the patient's vital signs remained stable. She was discharged in good condition. Pre-and post- blood sugar measurements are documented in the clinical panel. Past Medical History Chronic Problems (Last Reviewed 06/09/20 @ 10:29 by Jackie Ivory MULTIPLE DRUM SANDER HELPER, MULTIPLE DRUM SANDER HELPER-C) Chronic hypoxemic respiratory failure (Chronic) 2 L/min at all times Stage 2 moderate COPD by GOLD classification (Chronic) FEV1 58% of predicted Skin graft (allograft) (autograft) failure (Chronic) Hidradenitis suppurativa of anus (Chronic) Nonhealing ulcer of right lower extremity with fat layer exposed (Chronic) Pilonidal cyst with abscess (Chronic) Extensive, complicated pilonidal cyst abscess Chronic ulcer of sacral region with fat layer exposed (Chronic) Ulcer of perianal area with fat layer exposed (Chronic) nonhealing hidradenitis ulcer bilateral perianal areas Atherosclerosis of coronary artery of [place] heart without angina pectoris (Chronic) Essential hypertension (Chronic) Anemia (Chronic) Asthma (Chronic) Chronic pneumonia (Chronic) Hyperlipidemia (Chronic) Type 2 diabetes mellitus (Chronic) Hypothyroidism (Chronic) COPD (chronic obstructive pulmonary disease) (Chronic) Allergies/Adverse Reactions: Allergies adhesive tape Allergy (Unknown, Verified 06/09/20 10:17) Other Severe itching azithromycin [From Zithromax] Allergy (Unknown, Verified 06/09/20 10:17) Shortness of breath Patient stated she also breaks out in a rash cephalexin [From Keflex] Allergy (Unknown, Verified 06/09/20 10:17) Shortness of breath Patient stated she also breaks out in a rash Home Medications: Ambulatory Orders Medication Instructions Recorded atorvastatin 80 mg tablet 80 mg PO DAILY 10/25/18 bimatoprost 0.01 % eye drops 1 drp OPHTHALMIC QPM 10/25/18 citalopram 20 mg tablet 20 mg PO DAILY 10/25/18 furosemide 40 mg tablet 40 mg PO DAILY 10/25/18 metformin 500 mg tablet 500 mg PO BID 10/25/18 polyethylene glycol 3350 17 gram 17 g PO DAILY PRN 10/25/18 oral powder packet potassium chloride 20 mEq oral 20 meq PO DAILY 10/25/18 packet pumpkin seed extract-soy germ 300 1 cap PO PRN PRN cap 10/25/18 mg capsule ropinirole 0.5 mg tablet 0.5 mg PO QHS 10/25/18 Latanoprost 0.005% [Xalatan 1 drp OPHTHALMIC (EYE) HS 12/03/18 Opthalmic] Levothyroxine [Synthroid] 175 mcg PO MOTUWETHFRSA 12/03/18 Nystatin Powder [Mycostatin Powder] 1 applic TOPICAL BID 12/03/18 Bisacodyl [Dulcolax] 10 mg PO DAILY PRN tab 01/18/19 Mineral Oil/Petrolatum,White 1 applic TOPICAL QHS jar 01/18/19 [Eucerin] Nutritional Supplement [Juice - 1 packet PO BIDCM #60 packet 01/18/19 ORANGE FLAVOR] Pantoprazole Sodium [Protonix] 40 mg PO DAILY #30 tab 01/18/19 Senna [Senokot] 2 tab PO BID tab 01/18/19 buPROPion SR [Wellbutrin SR (150mg 150 mg PO BID #60 tablet.sa 01/18/19 tablets)] hydrOXYzine pamoate capsule 50 mg PO 4X/DAY PRN PRN #120 cap 01/18/19 [Vistaril pamoate capsule] Rifampin [Rifadin] 300 mg PO BID #14 cap 01/25/19 Insulin NPH/Reg 70/30 [Novolin 50 units SUBCUT BIDAC 01/03/20 70/30] Lactobacillus Acidophilus/Fos 1 ea PO BID #30 tab 01/31/20 [Acidophilus Probiotic Tablet] amoxicillin 875 mg-potassium 1 tab PO BID 21 Days #42 tab 05/29/20 clavulanate 125 mg tablet lactobacillus combination no.8 3 3,000 mmu cells PO BID 60 Days 05/29/20 billion cell capsule #120 cap umeclidinium 62.5 mcg-vilanterol 1 inh INHALATION QDAY #60 ea 06/09/20 25 mcg/actuation powdr for inhalation Maternal Family History: Family History (Last Reviewed 06/09/20 @ 10:29 by Jackie Ivory MULTIPLE DRUM SANDER HELPER, MULTIPLE DRUM SANDER HELPER-C) Mother Lung cancer Anxiety Arthritis Depression (emotion) Diabetes Sister CVA (cerebral vascular accident) Anxiety Asthma Depression (emotion) Heart disease Aunt Arthritis Depression (emotion) Diabetes Daughter Cancer Grandmother Diabetes Grandfather Heart disease Psychiatric care CVA (cerebral vascular accident) Father COPD (chronic obstructive pulmonary disease) Family History: No pertinent history Paternal Family History: Family History (Last Reviewed 06/09/20 @ 10:29 by Jackie Ivory MULTIPLE DRUM SANDER HELPER, MULTIPLE DRUM SANDER HELPER-C) Mother Lung cancer Anxiety Arthritis Depression (emotion) Diabetes Sister CVA (cerebral vascular accident) Anxiety Asthma Depression (emotion) Heart disease Aunt Arthritis Depression (emotion) Diabetes Daughter Cancer Grandmother Diabetes Grandfather Heart disease Psychiatric care CVA (cerebral vascular accident) Father COPD (chronic obstructive pulmonary disease) Family History: No pertinent history Smoking Status: Former smoker Tobacco Use: Non-smoker Physical Exam Vital Signs Temp Pulse Resp BP 95.9 F L 76 16 136/47 H 06/25/20 13:48 06/25/20 13:48 06/25/20 13:48 06/25/20 13:48 General: Alert, Oriented x3, Cooperative, No apparent distress HEENT: Atraumatic, PERRLA, EOMI, Normocephalic, TM's Clear Lungs: Clear to auscultation, Normal air movement, No rhonchi, No wheeze Cardiovascular: Regular rate, Regular Rhythm Psych/Mental Status: Normal Affect, Appropriate Assessment/Plan The patient appears to be tolerating hyperbaric oxygen therapy well, which will be continued as per the patient's medical plan. Treatment Course Number Number of HBO Treatments 50 Ordered Treatment Course Number 1 Treatment # 35 Chamber # 1 Chamber Type Monoplace Diabetes - Detail Diabetes Diabetes Type II Other - Detail Compromised/Failed Flap/Graft Yes (specify site in comment) Treatment Plan ALEM (Atmospheric Absolute) 2 Number of Minutes 90 Number of Air Breaks 0
[2020-06-26 13:15] LABS: Bedside Glucose 229 mg/dL (70-110)
[2020-06-26 13:55] VITALS: BP 146/61; PULSE 77; RESP 16; TEMP 36.4
--- NOTE | 2020-06-26 14:56 | PCM.HBO.PN ---
History of Present Illness Date of Service: 06/26/20 Presenting Chief Complaint: Nonhealing recurrent hidradenitis ulcer bilateral perianal area with skin graft compromise. CHRISS VERA is a 75 year old currently undergoing hyperbaric oxygen therapy for non-healing recurrent hidradenitis ulcer bilateral perianal area with skin graft compromise. Progress: Today represents the 38th session of 50 planned sessions. Tolerance of hyperbaric oxygen therapy: Hyperbaric oxygen treatment was provided as per the facility's protocol , However shortly into therapy the patient experienced significant bilateral ear pain. Right greater than worse. Treatment was immediately stopped and the patient reversed from the diet. Upon emergence from the hyperbaric chamber, bilateral ear pain had improved but was still present. On exam the patient did have mild bilateral barotrauma to the tympanic membranes, right greater than left. She will be referred to an nuclear equipment test engineer for evaluation. She may not continue hyperbaric oxygen therapy until she is cleared by nuclear equipment test engineer. Past Medical History Chronic Problems (Last Reviewed 06/09/20 @ 10:29 by Jackie Ivory NUCLEAR EQUIPMENT TEST ENGINEER, NUCLEAR EQUIPMENT TEST ENGINEER-C) Chronic hypoxemic respiratory failure (Chronic) 2 L/min at all times Stage 2 moderate COPD by GOLD classification (Chronic) FEV1 58% of predicted Skin graft (allograft) (autograft) failure (Chronic) Hidradenitis suppurativa of anus (Chronic) Nonhealing ulcer of right lower extremity with fat layer exposed (Chronic) Pilonidal cyst with abscess (Chronic) Extensive, complicated pilonidal cyst abscess Chronic ulcer of sacral region with fat layer exposed (Chronic) Ulcer of perianal area with fat layer exposed (Chronic) nonhealing hidradenitis ulcer bilateral perianal areas Atherosclerosis of coronary artery of [place] heart without angina pectoris (Chronic) Essential hypertension (Chronic) Anemia (Chronic) Asthma (Chronic) Chronic pneumonia (Chronic) Hyperlipidemia (Chronic) Type 2 diabetes mellitus (Chronic) Hypothyroidism (Chronic) COPD (chronic obstructive pulmonary disease) (Chronic) Allergies/Adverse Reactions: Allergies adhesive tape Allergy (Unknown, Verified 06/09/20 10:17) Other Severe itching azithromycin [From Zithromax] Allergy (Unknown, Verified 06/09/20 10:17) Shortness of breath Patient stated she also breaks out in a rash cephalexin [From Keflex] Allergy (Unknown, Verified 11/03/20 10:17) Shortness of breath Patient stated she also breaks out in a rash Home Medications: Ambulatory Orders Medication Instructions Recorded atorvastatin 80 mg tablet 80 mg PO DAILY 10/25/18 bimatoprost 0.01 % eye drops 1 drp OPHTHALMIC QPM 10/25/18 citalopram 20 mg tablet 20 mg PO DAILY 10/25/18 furosemide 40 mg tablet 40 mg PO DAILY 10/25/18 metformin 500 mg tablet 500 mg PO BID 10/25/18 polyethylene glycol 3350 17 gram 17 g PO DAILY PRN 10/25/18 oral powder packet potassium chloride 20 mEq oral 20 meq PO DAILY 10/25/18 packet pumpkin seed extract-soy germ 300 1 cap PO PRN PRN cap 10/25/18 mg capsule ropinirole 0.5 mg tablet 0.5 mg PO QHS 10/25/18 Latanoprost 0.005% [Xalatan 1 drp OPHTHALMIC (EYE) HS 12/03/18 Opthalmic] Levothyroxine [Synthroid] 175 mcg PO MOTUWETHFRSA 12/03/18 Nystatin Powder [Mycostatin Powder] 1 applic TOPICAL BID 12/03/18 Bisacodyl [Dulcolax] 10 mg PO DAILY PRN tab 01/18/19 Mineral Oil/Petrolatum,White 1 applic TOPICAL QHS jar 01/18/19 [Eucerin] Nutritional Supplement [Juice - 1 packet PO BIDCM #60 packet 01/18/19 ORANGE FLAVOR] Pantoprazole Sodium [Protonix] 40 mg PO DAILY #30 tab 01/18/19 Senna [Senokot] 2 tab PO BID tab 01/18/19 buPROPion SR [Wellbutrin SR (150mg 150 mg PO BID #60 tablet.sa 01/18/19 tablets)] hydrOXYzine pamoate capsule 50 mg PO 4X/DAY PRN PRN #120 cap 01/18/19 [Vistaril pamoate capsule] Rifampin [Rifadin] 300 mg PO BID #14 cap 01/25/19 Insulin NPH/Reg 70/30 [Novolin 50 units SUBCUT BIDAC 01/03/20 70/30] Lactobacillus Acidophilus/Fos 1 ea PO BID #30 tab 01/31/20 [Acidophilus Probiotic Tablet] amoxicillin 875 mg-potassium 1 tab PO BID 21 Days #42 tab 05/29/20 clavulanate 125 mg tablet lactobacillus combination no.8 3 3,000 mmu cells PO BID 60 Days 05/29/20 billion cell capsule #120 cap umeclidinium 62.5 mcg-vilanterol 1 inh INHALATION QDAY #60 ea 06/09/20 25 mcg/actuation powdr for inhalation Maternal Family History: Family History (Last Reviewed 06/09/20 @ 10:29 by Jackie Ivory NUCLEAR EQUIPMENT TEST ENGINEER, NUCLEAR EQUIPMENT TEST ENGINEER-C) Mother Lung cancer Anxiety Arthritis Depression (emotion) Diabetes Sister CVA (cerebral vascular accident) Anxiety Asthma Depression (emotion) Heart disease Aunt Arthritis Depression (emotion) Diabetes Daughter Cancer Grandmother Diabetes Grandfather Heart disease Psychiatric care CVA (cerebral vascular accident) Father COPD (chronic obstructive pulmonary disease) Family History: No pertinent history Paternal Family History: Family History (Last Reviewed 06/09/20 @ 10:29 by Jackie Ivory NUCLEAR EQUIPMENT TEST ENGINEER, NUCLEAR EQUIPMENT TEST ENGINEER-C) Mother Lung cancer Anxiety Arthritis Depression (emotion) Diabetes Sister CVA (cerebral vascular accident) Anxiety Asthma Depression (emotion) Heart disease Aunt Arthritis Depression (emotion) Diabetes Daughter Cancer Grandmother Diabetes Grandfather Heart disease Psychiatric care CVA (cerebral vascular accident) Father COPD (chronic obstructive pulmonary disease) Family History: No pertinent history Smoking Status: Former smoker Tobacco Use: Non-smoker Physical Exam Vital Signs Temp Pulse Resp BP 97.6 F L 77 16 146/61 H 06/26/20 13:55 06/26/20 13:55 06/26/20 13:55 06/26/20 13:55 General: Alert, Oriented x3, Cooperative, No apparent distress HEENT: Atraumatic, TM's Clear - Clear prior to dive, post dive noted mild bilateral Barotrauma Lungs: Clear to auscultation, Normal air movement Cardiovascular: Regular rate, Regular Rhythm Psych/Mental Status: Normal Affect, Appropriate, Alert and oriented to time, place, person, mood and affect Assessment/Plan Treatment Course Number Number of HBO Treatments 50 Ordered Treatment Course Number 1 Treatment # 38 Chamber # 1 Chamber Type Monoplace Diabetes - Detail Diabetes Diabetes Type II Other - Detail Compromised/Failed Flap/Graft Yes (specify site in comment) Treatment Plan
== END 2020-07-06 23:59 ==
LOC: WC 13:00
PROVIDERS: Family Provider Nurse Practitioner Family; PCP Student in an Organized Health Care Education/Training Program; Referring Provider Surgery; Visit Provider Surgery
DX: L73.2 Hidradenitis suppurativa (principal); T86.821 Skin graft (allograft) (autograft) failure; Y83.2 Surgical operation with anastomosis, bypass or graft as the cause of abnormal reaction of the patient, or of later complication, without mention of misadventure at the time of the procedure; I25.10 Atherosclerotic heart disease of native coronary artery without angina pectoris; I10 Essential (primary) hypertension; J96.11 Chronic respiratory failure with hypoxia; E11.9 Type 2 diabetes mellitus without complications; E03.9 Hypothyroidism, unspecified; Z79.899 Other long term (current) drug therapy; Z87.891 Personal history of nicotine dependence
CPT/HCPCS: 82962; 99183; G0277

== ENCOUNTER 2020-07-27 14:30 | Outpatient (RCR) | payer MEDICARE, OTHER, SELFPAY ==
[2020-06-09 10:16] VITALS: BMI 39.3
[2020-07-07 00:12] VITALS: BP 146/61; PULSE 77; RESP 16; TEMP 36.4
[2020-07-20 13:15] LABS: Bedside Glucose 166 mg/dL (70-110)
--- NOTE | 2020-07-20 13:45 | PCM.HBO.PN ---
History of Present Illness Date of Service: 07/20/20 Presenting Chief Complaint: Nonhealing recurrent hidradenitis ulcer bilateral perianal area with skin graft compromise. CHRISS VERA is a 75 year old currently undergoing hyperbaric oxygen therapy for for non-healing recurrent hidradenitis ulcer bilateral perianal area with skin graft compromise. Progress: Today represents the 38th session of 50 planned sessions. Tolerance of hyperbaric oxygen therapy: Hyperbaric oxygen treatment was provided as per the facility's protocol at 2.0 ALEM in 100% oxygen for 90 minutes without air breaks. The patient tolerated hyperbaric oxygen therapy well, without complications or complaints. Upon emergence of the hyperbaric chamber, the patient's vital signs remained stable. She was discharged in good condition. Pre-and post- blood sugar measurements are documented in the clinical panel. 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) Ulcer of perianal area with fat layer exposed (Chronic) nonhealing hidradenitis ulcer bilateral perianal areas Atherosclerosis of coronary artery of [place] heart without angina pectoris (Chronic) Essential hypertension (Chronic) Anemia (Chronic) Asthma (Chronic) Chronic pneumonia (Chronic) Hyperlipidemia (Chronic) Type 2 diabetes mellitus (Chronic) Hypothyroidism (Chronic) COPD (chronic obstructive pulmonary disease) (Chronic) Allergies/Adverse Reactions: Allergies adhesive tape Allergy (Unknown, Verified 06/09/20 10:17) Other Severe itching azithromycin [From Zithromax] Allergy (Unknown, Verified 06/09/20 10:17) Shortness of breath Patient stated she also breaks out in a rash cephalexin [From Keflex] Allergy (Unknown, Verified 06/09/20 10:17) Shortness of breath Patient stated she also breaks out in a rash Home Medications: Ambulatory Orders Medication Instructions Recorded atorvastatin 80 mg tablet 80 mg PO DAILY 10/25/18 bimatoprost 0.01 % eye drops 1 drp OPHTHALMIC QPM 10/25/18 citalopram 20 mg tablet 20 mg PO DAILY 10/25/18 furosemide 40 mg tablet 40 mg PO DAILY 10/25/18 metformin 500 mg tablet 500 mg PO BID 10/25/18 polyethylene glycol 3350 17 gram 17 g PO DAILY PRN 10/25/18 oral powder packet potassium chloride 20 mEq oral 20 meq PO DAILY 10/25/18 packet pumpkin seed extract-soy germ 300 1 cap PO PRN PRN cap 10/25/18 mg capsule ropinirole 0.5 mg tablet 0.5 mg PO QHS 10/25/18 Latanoprost 0.005% [Xalatan 1 drp OPHTHALMIC (EYE) HS 12/03/18 Opthalmic] Levothyroxine [Synthroid] 175 mcg PO MOTUWETHFRSA 12/03/18 Nystatin Powder [Mycostatin Powder] 1 applic TOPICAL BID 12/03/18 Bisacodyl [Dulcolax] 10 mg PO DAILY PRN tab 01/18/19 Mineral Oil/Petrolatum,White 1 applic TOPICAL QHS jar 01/18/19 [Eucerin] Nutritional Supplement [Juice - 1 packet PO BIDCM #60 packet 01/18/19 ORANGE FLAVOR] Pantoprazole Sodium [Protonix] 40 mg PO DAILY #30 tab 01/18/19 Senna [Senokot] 2 tab PO BID tab 01/18/19 buPROPion SR [Wellbutrin SR (150mg 150 mg PO BID #60 tablet.sa 01/18/19 tablets)] hydrOXYzine pamoate capsule 50 mg PO 4X/DAY PRN PRN #120 cap 01/18/19 [Vistaril pamoate capsule] Rifampin [Rifadin] 300 mg PO BID #14 cap 01/25/19 Insulin NPH/Reg 70/30 [Novolin 50 units SUBCUT BIDAC 01/03/20 70/30] Lactobacillus Acidophilus/Fos 1 ea PO BID #30 tab 01/31/20 [Acidophilus Probiotic Tablet] amoxicillin 875 mg-potassium 1 tab PO BID 21 Days #42 tab 05/29/20 clavulanate 125 mg tablet lactobacillus combination no.8 3 3,000 mmu cells PO BID 60 Days 05/29/20 billion cell capsule #120 cap umeclidinium 62.5 mcg-vilanterol 1 inh INHALATION QDAY #60 ea 06/09/20 25 mcg/actuation powdr for inhalation Maternal Family History: Family History (Last Reviewed 06/09/20 @ 10:29 by Jackie Ivory HEAD CORRECTION OFFICER, HEAD CORRECTION OFFICER-C) Mother Lung cancer Anxiety Arthritis Depression (emotion) Diabetes Sister CVA (cerebral vascular accident) Anxiety Asthma Depression (emotion) Heart disease Aunt Arthritis Depression (emotion) Diabetes Daughter Cancer Grandmother Diabetes Grandfather Heart disease Psychiatric care CVA (cerebral vascular accident) Father COPD (chronic obstructive pulmonary disease) Family History: No pertinent history Paternal Family History: Family History (Last Reviewed 06/09/20 @ 10:29 by Jackie Ivory HEAD CORRECTION OFFICER, HEAD CORRECTION OFFICER-C) Mother Lung cancer Anxiety Arthritis Depression (emotion) Diabetes Sister CVA (cerebral vascular accident) Anxiety Asthma Depression (emotion) Heart disease Aunt Arthritis Depression (emotion) Diabetes Daughter Cancer Grandmother Diabetes Grandfather Heart disease Psychiatric care CVA (cerebral vascular accident) Father COPD (chronic obstructive pulmonary disease) Family History: No pertinent history Smoking Status: Former smoker Tobacco Use: Non-smoker Physical Exam Vital Signs Temp Pulse Resp BP 97.6 F L 77 16 146/61 H 07/07/20 00:12 07/07/20 00:12 07/07/20 00:12 07/07/20 00:12 General: Alert, Oriented x3, Cooperative HEENT: Atraumatic, TM's Clear Lungs: Clear to auscultation, Normal air movement Cardiovascular: Regular rate, Regular Rhythm Psych/Mental Status: Normal Affect, Appropriate, Alert and oriented to time, place, person, mood and affect Assessment/Plan Treatment Course Number Treatment Course Number 1 Treatment # 38 Diabetes - Detail Diabetes Diabetes Type II Other - Detail Compromised/Failed Flap/Graft Yes (specify site in comment)
[2020-07-20 14:02] VITALS: BP 140/79; BP 156/66; PULSE 68; PULSE 78; RESP 16; RESP 17; TEMP 35.8; TEMP 36.4
[2020-07-20 15:36] LABS: Bedside Glucose 152 mg/dL (70-110)
[2020-07-27 15:10] VITALS: BP 110/56; PULSE 78; TEMP 36.2; BMI 39.3
--- NOTE | 2020-07-27 15:57 | PN.PCM_ITS ---
(1) Ulcer of perianal area with fat layer exposed Status: Chronic Code(s): L98.492 - Non-pressure chronic ulcer of skin of other sites with fat layer exposed Comment: nonhealing hidradenitis ulcer bilateral perianal areas (2) Skin graft (allograft) (autograft) failure Status: Chronic Code(s): T86.821 - Skin graft (allograft) (autograft) failure (3) Hidradenitis suppurativa of anus Status: Chronic Code(s): L73.2 - Hidradenitis suppurativa (4) Type 2 diabetes mellitus Status: Chronic Code(s): E11.9 - Type 2 diabetes mellitus without complications Type of Wound Date of Service: 07/27/20 Chief Complaint: Nonhealing recurrent hidradenitis ulcer bilateral perianal area with skin graft compromise. History of Wound: Surgery 01/31/20 - Surgical preparation bilateral perianal area with excisional debridement nonhealing recurrent hidradenitis ulcer with FTSG reconstruction from left lower back/superior gluteal area (6.25 cm2) and placement AmnioFill placental connective tissue powder (250 mg). Wound care - Silver. Operative culture - Negative. She was continued on Augmentin from a preop culture (12/23/19) that showed Streptococcus anginosus, Corynebacterium striatum, and Anaerobic cocci. Prealbumin from 02/17/20 was 13.0. Encourage nutritional supplementation with protein to help the healing process. HgbA1c from 04/11/19 was 7.4. There is compromise of the skin graft. Patient has been doing HBOT but has missed appointments due to other health issues. The ulcer is not showing much improvement. Will stop therapy. Today she denies fever. Her appetite is ok. Progress of Wound: Stable but no improvement since last visit. - Physical Exam Vital Signs Temp Pulse Resp BP 97.2 F L 78 17 110/56 L 07/27/20 15:10 07/27/20 15:10 07/20/20 14:02 07/27/20 15:10 General: Alert, Oriented x3, Cooperative HEENT: Atraumatic Oral: Moist Mucosa Lungs: Normal air movement Cardiovascular: Regular rate Extremities: Capillary Refill Less than 3 Seconds Skin: Ulcer/ Wound - Perianal ulcer is beefy pink. Wound Measurements and Assessment WC - Nurse 1 - General Ulcer Measurement Start: 07/20/20 14:02 Freq: Status: Active Protocol: Activity Type Activity Date Activity User E-Sign Co-Sign Detail Recorded Client Recorded Date Recorded By Document 07/27/20 15:10 TYSON [id number] 07/27/20 15:21 KR 07/27/20 15:10 Wound Center Nurse 1 [Ulcer Assessment] #2- coccyx/ Graft,post op -Current Size (cm) - Length 2 -Current Size (cm) - Width 1.4 -Current Size (cm) - Depth 0.4 -Total Square Cm 2.8 -Exudate Amt Small -Exudate Type Serosanguineous -Wound Margin Distinct, Outline Attached -Granulation Amt Small (1-33%) -Granulation Quality Red -Necrosis Amt Small (1-33%) -Necrotic Tissue Type Adherent Slough -Texture (Hailee-wound Skin Appearance) Assessed, Scarring -Moisture (Hailee-wound Skin Appearance No Abnormality, ) Assessed -Color (Hailee-wound Skin Appearance) No Abnormality, Assessed -Temperature (Hailee-wound Skin No Abnormality Appearance) (Pt Warm) -Tenderness on Palpation (Hailee-wound No Skin Appearance) -Ulcer Cleansing Rinsed/ Irrigated with Saline -Foul Odor after Cleansing No -Anesthetic Used 4% Lidocaine Solution WC - Nurse 2 - General Ulcer CM Notes Start: 07/20/20 14:02 Freq: Status: Active Protocol: Activity Type Activity Date Activity User E-Sign Co-Sign Detail Recorded Client Recorded Date Recorded By Document 07/27/20 15:35 DL [id number] 07/27/20 15:36 DL 07/27/20 15:35 Wound Center Nurse 2 [Procedure/Treatment] -Time 15:35 -Correct Patient Yes -Correct Side, Site, Position Yes -Correct Procedure Yes -Procedure Performed Yes -Type of Procedure Debridement -Clinical Debridement Subcutaneous -Tissue Removed Subcutaneous -Post Debridement (cm) - Length 2.8 -Post Debridement (cm) - Width 0.8 -Post Debridement (cm) - Depth 0.7 -Total Square (Post) (cm) 2.24 -Area of Debridement (cm) - Length 2.8 -Area of Debridement (cm) - Width 0.8 -Total Square (Area) (cm) 2.24 -Tunneling No -Undermining/Tunneling No -Circular Undermining No -Wound/Ulcer Outcome Not Healed -Ulcer Cleansing Rinsed/ Irrigated with Saline -Foul Odor after Cleansing No -Bioengineered Tissue No -Bleeding Controlled with Pressure -Offloading No -Treatment Response Procedure Tolerated Well -Debridement - Subq, 1st 20sq cm Yes [See Physician Procedure note for Specifics] Pain Scale: 0-10 Numeric [Pain] -Is Patient Pain Free? Yes - Nurse 3 - General Ulcer D/C NN Start: 07/20/20 14:02 Freq: Status: Active Protocol: Activity Type Activity Date Activity User E-Sign Co-Sign Detail Recorded Client Recorded Date Recorded By Document 07/27/20 15:36 [id number] 07/27/20 15:46 07/27/20 15:36 Wound Care Nurse 3 [Wound Dressing] #2- coccyx/ Graft,post op -Ulcer Cleansing Rinsed/ Irrigated with Saline -Foul Odor after Cleansing No -Primary Dressing Applied Aquacel AG 4x4 -Primary Dressing Covered/Secured Dry Gauze, with Secured with Tape -Aquacel AG 4x4 1 Pain Scale: 0-10 Numeric [Pain] -Is Patient Pain Free? Yes - Visit Discharge [Visit Discharge Information] -Discharge Condition Stable -Ambulatory Status Wheelchair -Transportation Private Auto -Accompanied by Mango -Medication Reconcilliation completed Yes & provided to patient/care provider -Clinical Summary of Care Provided Yes Musculoskeletal: No Tenderness to Palpation of Joints or Extremities Neurological: Cranial nerves II-XII grossly intact Psych/Mental Status: Normal Affect, Appropriate Debridement Note Post-Debridement Measurements/Treatment - Nurse 2 - General Ulcer CM Notes Start: 07/20/20 14:02 Freq: Status: Active Protocol: Activity Type Activity Date Activity User E-Sign Co-Sign Detail Recorded Client Recorded Date Recorded By Document 07/27/20 15:35 [id number] 07/27/20 15:36 07/27/20 15:35 Wound Center Nurse 2 #2- coccyx/ Graft,post op -Time 15:35 -Correct Patient Yes -Correct Side, Site, Position Yes -Correct Procedure Yes -Procedure Performed Yes -Type of Procedure Debridement -Clinical Debridement Subcutaneous -Tissue Removed Subcutaneous -Post Debridement (cm) - Length 2.8 -Post Debridement (cm) - Width 0.8 -Post Debridement (cm) - Depth 0.7 -Total Square (Post) (cm) 2.24 -Area of Debridement (cm) - Length 2.8 -Area of Debridement (cm) - Width 0.8 -Total Square (Area) (cm) 2.24 -Tunneling No -Undermining/Tunneling No -Circular Undermining No -Wound/Ulcer Outcome Not Healed -Ulcer Cleansing Rinsed/ Irrigated with Saline -Foul Odor after Cleansing No -Bioengineered Tissue No -Bleeding Controlled with Pressure -Offloading No -Treatment Response Procedure Tolerated Well -Debridement - Subq, 1st 20sq cm Yes Pain Scale: 0-10 Numeric Is Patient Pain Free? Yes - Nurse 3 - General Ulcer D/C NN Start: 07/20/20 14:02 Freq: Status: Active Protocol: Activity Type Activity Date Activity User E-Sign Co-Sign Detail Recorded Client Recorded Date Recorded By Document 07/27/20 15:36 [id number] 07/27/20 15:46 DL 07/27/20 15:36 Wound Care Nurse 3 #2- coccyx/ Graft,post op -Ulcer Cleansing Rinsed/ Irrigated with Saline -Foul Odor after Cleansing No -Primary Dressing Applied Aquacel AG 4x4 -Primary Dressing Covered/Secured with Dry Gauze, Secured with Tape -Aquacel AG 4x4 1 Pain Scale: 0-10 Numeric Is Patient Pain Free? Yes WC - Visit Discharge Discharge Condition Stable Ambulatory Status Wheelchair Transportation Private Auto Accompanied by Mango Medication Reconcilliation completed & Yes provided to patient/care provider Clinical Summary of Care Provided Yes Wound debrided: Perianal ulcer Type of Debridement: Excisional debridement Anesthesia Used: 5% Lidocaine Gel Depth: Down to and including healthy tissue, in the subcutaneous layer Percentage of wound debrided: 100 Instrument Used: 3mm curette Tissue Removed: Subcutaneous tissue and slough Severity: Fat Layer Exposed Amount of bleeding with debridement: Mild Bleeding Controlled with: Pressure Patient tolerated procedure well Assessment/Plan Active Problems (Last Reviewed 06/09/20 @ 10:29 by Jackie Ivory VESSEL SLAG WORKER, VESSEL SLAG WORKER-C) Skin graft (allograft) (autograft) failure (Chronic) Hidradenitis suppurativa of anus (Chronic) Ulcer of perianal area with fat layer exposed (Chronic) nonhealing hidradenitis ulcer bilateral perianal areas Type 2 diabetes mellitus (Chronic) Assessment: 1. Nonhealing recurrent hidradenitis ulcer bilateral perianal area. 2. Hidradenitis. 3. Diabetes. 4. Compromised skin graft bilateral perianal area. 5. Former smoker. Plan: Continue Silver dressing changes daily. She finished Augmentin for preop culture (12/23/19) that showed Streptococcus anginosus, Corynebacterium striatum, and Anaerobic cocci. The operative culture was negative. Wound culture form 05/25/20 was positive for Strep angionosus, Corynebacterium minutissinum, and Actinomyces species. She was treated with Augmentin. She has been doing HBO treatments which she is tolerating well, but she is no longer showing improvment in the ulcer, therefore the HBOT can be stopped. Her Prealbumin was 13.0 from 02/17/20. Encourage nutritional supplementation with protein to help the healing process. HgbA1c from 04/11/19 was 7.4. Followup 3 weeks. Follow-up sooner should new or concerning symptoms arise. Note: [employer] speech recognition practice lead software was used to create portions of this document. Sound-alike and misspelled words, as well as other practice lead errors may be contained in the documentation. [id number]: [id number] Kacey subq tissue 20 sq cm/<
== END 2020-08-06 23:59 ==
LOC: WC 14:30
PROVIDERS: Family Provider Nurse Practitioner Family; PCP Student in an Organized Health Care Education/Training Program; Referring Provider Surgery; Visit Provider Surgery
DX: L73.2 Hidradenitis suppurativa (principal); E11.9 Type 2 diabetes mellitus without complications; T86.821 Skin graft (allograft) (autograft) failure; Y83.2 Surgical operation with anastomosis, bypass or graft as the cause of abnormal reaction of the patient, or of later complication, without mention of misadventure at the time of the procedure; Z87.891 Personal history of nicotine dependence; I10 Essential (primary) hypertension; I25.10 Atherosclerotic heart disease of native coronary artery without angina pectoris; J44.9 Chronic obstructive pulmonary disease, unspecified; E78.5 Hyperlipidemia, unspecified; J45.909 Unspecified asthma, uncomplicated; J96.11 Chronic respiratory failure with hypoxia; E03.9 Hypothyroidism, unspecified; Z79.899 Other long term (current) drug therapy; Z79.4 Long term (current) use of insulin
CPT/HCPCS: 11042; 82962; 99183; G0277

== ENCOUNTER → 2020-08-10 15:04 | Outpatient (CLI) | payer MEDICARE, OTHER, SELFPAY ==
[2020-08-10 14:15] VITALS: BMI 39.6
[2020-08-10 17:17] LABS: Hematocrit 36.9 % (37-47); Hemoglobin 10.9 g/dL (12.0-15.0); Mean Corp Hgb Conc 29.5 g/dL (32-36); Mean Corpuscular Volume 87.9 fL (81-99); Mean Platelet Vol. 11.3 fl (6.2-12.0); Platelet Count 224 K/mm3 (150-450); RBC Distribution Width SD 51.8 fl (35.1-43.9); White Blood Count 7.1 K/mm3 (4.4-11.0)
[2020-08-10 17:38] LABS: Microalbumin:Creatinine Ratio 586.8 mg/g CRE (<30 mg/g CRE)
[2020-08-10 17:56] LABS: Vitamin B12 584 pg/mL (211-911); Vitamin D,25 Hydroxy 26.4 ng/mL
[2020-08-10 18:02] LABS: BNP,B-Type NATRIURETIC PEPTIDE 34.7 pg/mL (0-100)
[2020-08-10 18:02] LABS: Hemoglobin A1c 8.4 % (3.8-5.6)
[2020-08-10 18:08] LABS: ALB/GLOB Ratio 0.6 RATIO (0.9-2.4); AST(SGOT) 12 U/L (15-37); Alanine Aminotransfer ALT/SGPT 23 U/L (13-56); Alkaline Phosphatase 66 U/L (45-117); Anion Gap 6 (5-15); BUN 25 mg/dL (7-18); Calcium,Total 8.9 mg/dL (8.5-10.1); Chloride 105 mmol/L (98-107); Cholesterol 146 mg/dL (200); Creatinine, Serum 0.68 mg/dL (0.55-1.02); EST Glomerular Filtration Rate 90 mL/min (>60); Est Glom Filt Rate - Afr Amer 109 mL/min (>60); Globulin 4.7 g/dL (2.2-4.2); Glucose 233 mg/dL (74-106); High Density Lipoprotein 31 mg/dL; Iron 45 ug/dL (50-170); Potassium 3.9 mmol/L (3.5-5.1); Protein, Total 7.7 g/dL (6.4-8.2); Sodium Level 140 mmol/L (136-145); T4 Free Direct 1.21 ng/dL (0.76-1.46); Thyroid Stim Hormone (TSH) 0.82 uIU/mL (0.358-3.74); Triglycerides 179 mg/dL; Very Low Density Lipoprotein 36 mg/dL (5-40)
== END ==
PROVIDERS: Internal Medicine; PCP Student in an Organized Health Care Education/Training Program; Referring Provider Nurse Practitioner Family; Visit Provider Nurse Practitioner Family
DX: D50.9 Iron deficiency anemia, unspecified (principal); E11.49 Type 2 diabetes mellitus with other diabetic neurological complication; E78.2 Mixed hyperlipidemia; E55.9 Vitamin D deficiency, unspecified; I10 Essential (primary) hypertension; R06.00 Dyspnea, unspecified
CPT/HCPCS: 36415; 80053; 80061; 82043; 82306; 82570; 82607; 83036; 83540; 83880; 84439; 84443; 85027

== ENCOUNTER 2020-08-31 11:15 | Outpatient (RCR) | payer MEDICARE, OTHER, SELFPAY ==
[2020-08-07 00:12] VITALS: BP 110/56; PULSE 78; RESP 16; TEMP 36.2
[2020-08-10 14:15] VITALS: BMI 39.6
[2020-08-17 11:09] VITALS: BP 142/47; PULSE 78; TEMP 35.9; BMI 39.6
--- NOTE | 2020-08-17 13:11 | PCM.WC.PN ---
(1) Ulcer of perianal area with fat layer exposed Status: Chronic Code(s): L98.492 - Non-pressure chronic ulcer of skin of other sites with fat layer exposed Comment: nonhealing hidradenitis ulcer bilateral perianal areas (2) Skin graft (allograft) (autograft) failure Status: Chronic Code(s): T86.821 - Skin graft (allograft) (autograft) failure (3) Type 2 diabetes mellitus Status: Chronic Code(s): E11.9 - Type 2 diabetes mellitus without complications Type of Wound Date of Service: 08/17/20 Chief Complaint: Nonhealing recurrent hidradenitis ulcer bilateral perianal area with skin graft compromise. History of Wound: Surgery 01/31/20 - Surgical preparation bilateral perianal area with excisional debridement nonhealing recurrent hidradenitis ulcer with FTSG reconstruction from left lower back/superior gluteal area (6.25 cm2) and placement AmnioFill placental connective tissue powder (250 mg). Wound care - Silver. Operative culture - Negative. She was continued on Augmentin from a preop culture (12/23/19) that showed Streptococcus anginosus, Corynebacterium striatum, and Anaerobic cocci. Prealbumin from 02/17/20 was 13.0. Encourage nutritional supplementation with protein to help the healing process. HgbA1c from 04/11/19 was 7.4. There is compromise of the skin graft. Patient has been doing HBOT but has missed appointments due to other health issues. The ulcer is not showing much improvement. We decided to stop the HBO therapy. Today she denies fever. Her appetite is ok. Progress of Wound: Stable. - Physical Exam Vital Signs Temp Pulse Resp BP 96.7 F L 78 16 142/47 H 08/17/20 11:09 08/17/20 11:09 08/07/20 00:12 08/17/20 11:09 General: Alert, Oriented x3, Cooperative HEENT: Atraumatic Oral: Moist Mucosa Lungs: Normal air movement Cardiovascular: Regular rate Extremities: Capillary Refill Less than 3 Seconds Skin: Ulcer/ Wound - Perianal ulcer is stable. Wound Measurements and Assessment WC - Nurse 1 - General Ulcer Measurement Start: 08/17/20 10:49 Freq: Status: Active Protocol: Activity Type Activity Date Activity User E-Sign Co-Sign Detail Recorded Client Recorded Date Recorded By Document 08/17/20 11:09 TYSON [id number] 08/17/20 11:19 KR 08/17/20 11:09 Wound Center Nurse 1 [Ulcer Assessment] #2- coccyx/ Graft,post op -Current Size (cm) - Length 2.5 -Current Size (cm) - Width 0.5 -Current Size (cm) - Depth 1 -Total Square Cm 1.25 -Exudate Amt Small -Exudate Type Serosanguineous -Wound Margin Distinct, Outline Attached -Granulation Amt Small (1-33%) -Granulation Quality Red -Necrosis Amt Small (1-33%) -Necrotic Tissue Type Adherent Slough -Texture (Hailee-wound Skin Appearance) Assessed, Scarring -Moisture (Hailee-wound Skin Appearance No Abnormality, ) Assessed -Color (Hailee-wound Skin Appearance) No Abnormality, Assessed -Temperature (Hailee-wound Skin No Abnormality Appearance) (Pt Warm) -Tenderness on Palpation (Hailee-wound No Skin Appearance) -Ulcer Cleansing Rinsed/ Irrigated with Saline -Foul Odor after Cleansing No -Anesthetic Used 4% Lidocaine Solution WC - Nurse 2 - General Ulcer CM Notes Start: 08/17/20 10:49 Freq: Status: Active Protocol: Activity Type Activity Date Activity User E-Sign Co-Sign Detail Recorded Client Recorded Date Recorded By Document 08/17/20 11:27 DL [id number] 08/17/20 11:29 DL 08/17/20 11:27 Wound Center Nurse 2 [Procedure/Treatment] -Time 11:27 -Correct Patient Yes -Correct Side, Site, Position Yes -Correct Procedure Yes -Procedure Performed Yes -Type of Procedure Debridement -Clinical Debridement Subcutaneous -Tissue Removed Subcutaneous -Post Debridement (cm) - Length 2.2 -Post Debridement (cm) - Width 1 -Post Debridement (cm) - Depth 0.7 -Total Square (Post) (cm) 2.2 -Area of Debridement (cm) - Length 2.2 -Area of Debridement (cm) - Width 1 -Total Square (Area) (cm) 2.2 -Tunneling No -Undermining/Tunneling No -Circular Undermining No -Wound/Ulcer Outcome Not Healed -Ulcer Cleansing Rinsed/ Irrigated with Saline -Foul Odor after Cleansing No -Bioengineered Tissue No -Bleeding Controlled with Pressure -Offloading No -Treatment Response Procedure Tolerated Well -Debridement - Subq, 1st 20sq cm Yes [See Physician Procedure note for Specifics] Pain Scale: 0-10 Numeric [Pain] -Is Patient Pain Free? Yes - Nurse 3 - General Ulcer D/C NN Start: 08/17/20 10:49 Freq: Status: Active Protocol: Activity Type Activity Date Activity User E-Sign Co-Sign Detail Recorded Client Recorded Date Recorded By Document 08/17/20 11:39 [facility] [id number] 08/17/20 11:39 [facility] 08/17/20 11:39 Wound Care Nurse 3 [Wound Dressing] #2- coccyx/ Graft,post op -Ulcer Cleansing Rinsed/ Irrigated with Saline -Foul Odor after Cleansing No -Primary Dressing Applied Aquacel AG 2x2 -Primary Dressing Covered/Secured Dry Gauze, with Secured with Tape -Aquacel AG 2x2 1 [Post Procedure Tolerated] -Treatment Response Procedure Tolerated Well Pain Scale: 0-10 Numeric [Pain] -Is Patient Pain Free? Yes - Visit Discharge [Visit Discharge Information] -Discharge Condition Stable -Ambulatory Status Wheelchair -Transportation Private Auto -Accompanied by Musculoskeletal: No Tenderness to Palpation of Joints or Extremities Neurological: Cranial nerves II-XII grossly intact Psych/Mental Status: Normal Affect, Appropriate Debridement Note Post-Debridement Measurements/Treatment [facility] - Nurse 2 - General Ulcer CM Notes Start: 08/17/20 10:49 Freq: Status: Active Protocol: Activity Type Activity Date Activity User E-Sign Co-Sign Detail Recorded Client Recorded Date Recorded By Document 08/17/20 11:27 [id number] 08/17/20 11:29 DL 08/17/20 11:27 Wound Center Nurse 2 #2- coccyx/ Graft,post op -Time 11:27 -Correct Patient Yes -Correct Side, Site, Position Yes -Correct Procedure Yes -Procedure Performed Yes -Type of Procedure Debridement -Clinical Debridement Subcutaneous -Tissue Removed Subcutaneous -Post Debridement (cm) - Length 2.2 -Post Debridement (cm) - Width 1 -Post Debridement (cm) - Depth 0.7 -Total Square (Post) (cm) 2.2 -Area of Debridement (cm) - Length 2.2 -Area of Debridement (cm) - Width 1 -Total Square (Area) (cm) 2.2 -Tunneling No -Undermining/Tunneling No -Circular Undermining No -Wound/Ulcer Outcome Not Healed -Ulcer Cleansing Rinsed/ Irrigated with Saline -Foul Odor after Cleansing No -Bioengineered Tissue No -Bleeding Controlled with Pressure -Offloading No -Treatment Response Procedure Tolerated Well -Debridement - Subq, 1st 20sq cm Yes Pain Scale: 0-10 Numeric Is Patient Pain Free? Yes - Nurse 3 - General Ulcer D/C NN Start: 08/17/20 10:49 Freq: Status: Active Protocol: Activity Type Activity Date Activity User E-Sign Co-Sign Detail Recorded Client Recorded Date Recorded By Document 08/17/20 11:39 [facility] [id number] 08/17/20 11:39 [facility] 08/17/20 11:39 Wound Care Nurse 3 #2- coccyx/ Graft,post op -Ulcer Cleansing Rinsed/ Irrigated with Saline -Foul Odor after Cleansing No -Primary Dressing Applied Aquacel AG 2x2 -Primary Dressing Covered/Secured with Dry Gauze, Secured with Tape -Aquacel AG 2x2 1 Treatment Response Procedure Tolerated Well Pain Scale: 0-10 Numeric Is Patient Pain Free? Yes - Visit Discharge Discharge Condition Stable Ambulatory Status Wheelchair Transportation Private Auto Accompanied by Wound debrided: perianal ulcer Type of Debridement: Excisional debridement Anesthesia Used: 5% Lidocaine Gel Depth: Down to and including healthy tissue, in the subcutaneous layer Percentage of wound debrided: 100 Instrument Used: 3mm curette Tissue Removed: Subcutaneous tissue and slough Severity: Fat Layer Exposed Amount of bleeding with debridement: Mild Bleeding Controlled with: Pressure Patient tolerated procedure well Assessment/Plan Assessment: 1. Nonhealing recurrent hidradenitis ulcer bilateral perianal area. 2. Hidradenitis. 3. Diabetes. 4. Compromised skin graft bilateral perianal area. 5. Former smoker. Plan: Continue Silver dressing changes daily. She finished Augmentin for preop culture (12/23/19) that showed Streptococcus anginosus, Corynebacterium striatum, and Anaerobic cocci. The operative culture was negative. Wound culture form 05/25/20 was positive for Strep angionosus, Corynebacterium minutissinum, and Actinomyces species. She was treated with Augmentin. She has been doing HBO treatments which she is tolerating well, but she is no longer showing improvment in the ulcer, therefore the HBOT was stopped. Her Prealbumin was 13.0 from 02/17/20. Encourage nutritional supplementation with protein to help the healing process. HgbA1c from 04/11/19 was 7.4. Followup 1 week so she can discuss her options with Dr. Eaton. 111xxx-113xx: [id number] Kacey subq tissue 20 sq cm/<
[2020-08-24 10:58] VITALS: BP 134/51; PULSE 69; RESP 22; TEMP 36.9; BMI 39.6
--- NOTE | 2020-08-24 20:21 | PN.PCM_ITS ---
Type of Wound Date of Service: 08/24/20 Chief Complaint: Nonhealing recurrent hidradenitis ulcer bilateral perianal area with skin graft compromise. History of Wound: Surgery 01/31/20 - Surgical preparation bilateral perianal area with excisional debridement nonhealing recurrent hidradenitis ulcer with FTSG reconstruction from left lower back/superior gluteal area (6.25 cm2) and placement AmnioFill placental connective tissue powder (250 mg). Wound care - Silver. Operative culture - Negative. She was continued on Augmentin from a preop culture (12/23/19) that showed Streptococcus anginosus, Corynebacterium striatum, and Anaerobic cocci. Wound culture form 05/25/20 was positive for Strep angionosus, Corynebacterium minutissinum, and Actinomyces species. She was treated with Augmentin and has finished them. Prealbumin from 02/17/20 was 13.0. Encourage nutritional supplementation with protein to help the healing process. HgbA1c from 04/11/19 was 7.4. There is compromise of the skin graft. Patient had HBO treatments with some improvement in the healing hidradenitis ulcer and has finished them. Today she denies fever. Her appetite is ok. She has developed recent lung issues that has required some oxygen. Progress of Wound: Some improvement with the HBO. - Physical Exam Vital Signs Temp Pulse Resp BP 98.5 F 69 22 H 134/51 H 08/24/20 10:58 08/24/20 10:58 08/24/20 10:58 08/24/20 10:58 Wound Measurements and Assessment WC - Nurse 1 - General Ulcer Measurement Start: 08/17/20 10:49 Freq: Status: Active Protocol: Activity Type Activity Date Activity User E-Sign Co-Sign Detail Recorded Client Recorded Date Recorded By Document 08/24/20 10:58 DL [id number] 08/24/20 11:05 DL 08/24/20 10:58 Wound Center Nurse 1 [Ulcer Assessment] #2- coccyx/ Graft,post op -Current Size (cm) - Length 2 -Current Size (cm) - Width 0.8 -Current Size (cm) - Depth 0.3 -Total Square Cm 1.6 -Photo Taken No -Exudate Amt Small -Exudate Type Serosanguineous -Wound Margin Thickened & Rolled Under -Granulation Amt Large (67-100%) -Granulation Quality Red -Necrosis Amt None Present (0 %) -Structure Exposed N/A -Texture (Hailee-wound Skin Appearance) Scarring -Moisture (Hailee-wound Skin Appearance No Abnormality ) -Color (Hailee-wound Skin Appearance) No Abnormality -Temperature (Hailee-wound Skin No Abnormality Appearance) (Pt Warm) -Tenderness on Palpation (Hailee-wound No Skin Appearance) -Ulcer Cleansing Rinsed/ Irrigated with Saline -Foul Odor after Cleansing No -Anesthetic Used 5% Lidocaine Gel ADAMS - Nurse 2 - General Ulcer CM Notes Start: 08/17/20 10:49 Freq: Status: Active Protocol: Activity Type Activity Date Activity User E-Sign Co-Sign Detail Recorded Client Recorded Date Recorded By Document 08/24/20 11:37 [id number] 08/24/20 11:38 08/24/20 11:37 Wound Center Nurse 2 [Procedure/Treatment] -Time 11:37 -Correct Patient Yes -Correct Side, Site, Position Yes -Correct Procedure Yes -Procedure Performed Yes -Type of Procedure Debridement -Clinical Debridement Subcutaneous -Tissue Removed Subcutaneous -Post Debridement (cm) - Length 1.8 -Post Debridement (cm) - Width 1 -Post Debridement (cm) - Depth 0.6 -Total Square (Post) (cm) 1.8 -Area of Debridement (cm) - Length 1.8 -Area of Debridement (cm) - Width 1 -Total Square (Area) (cm) 1.8 -Tunneling No -Undermining/Tunneling No -Circular Undermining No -Wound/Ulcer Outcome Not Healed -Ulcer Cleansing Rinsed/ Irrigated with Saline -Foul Odor after Cleansing No -Bioengineered Tissue No -Bleeding Controlled with Pressure -Offloading No -Treatment Response Procedure Tolerated Well -Debridement - Subq, 1st 20sq cm Yes [See Physician Procedure note for Specifics] Pain Scale: 0-10 Numeric [Pain] -Is Patient Pain Free? Yes ADAMS - Nurse 3 - General Ulcer D/C NN Start: 08/17/20 10:49 Freq: Status: Active Protocol: Activity Type Activity Date Activity User E-Sign Co-Sign Detail Recorded Client Recorded Date Recorded By Document 08/24/20 11:38 JF [id number] 08/24/20 11:39 08/24/20 11:38 Wound Care Nurse 3 [Wound Dressing] #2- coccyx/ Graft,post op -Ulcer Cleansing Rinsed/ Irrigated with Saline -Foul Odor after Cleansing No -Primary Dressing Applied Silvercel -Primary Dressing Covered/Secured Dry Gauze, with Secured with Tape -Silvercel 1 Pain Scale: 0-10 Numeric [Pain] -Is Patient Pain Free? Yes - Visit Discharge [Visit Discharge Information] -Discharge Condition Stable -Ambulatory Status Wheelchair -Transportation Private Auto -Accompanied by -Medication Reconcilliation completed Yes & provided to patient/care provider -Clinical Summary of Care Provided Yes Debridement Note Post-Debridement Measurements/Treatment - Nurse 2 - General Ulcer CM Notes Start: 08/17/20 10:49 Freq: Status: Active Protocol: Activity Type Activity Date Activity User E-Sign Co-Sign Detail Recorded Client Recorded Date Recorded By Document 08/17/20 11:27 [id number] 08/17/20 11:29 Document 08/24/20 11:37 [id number] 08/24/20 11:38 08/17/20 08/24/20 11:27 11:37 Wound Center Nurse 2 #2- coccyx/ Graft,post op -Time 11:27 11:37 -Correct Patient Yes Yes -Correct Side, Site, Position Yes Yes -Correct Procedure Yes Yes -Procedure Performed Yes Yes -Type of Procedure Debridement Debridement -Clinical Debridement Subcutaneous Subcutaneous -Tissue Removed Subcutaneous Subcutaneous -Post Debridement (cm) - Length 2.2 1.8 -Post Debridement (cm) - Width 1 1 -Post Debridement (cm) - Depth 0.7 0.6 -Total Square (Post) (cm) 2.2 1.8 -Area of Debridement (cm) - Length 2.2 1.8 -Area of Debridement (cm) - Width 1 1 -Total Square (Area) (cm) 2.2 1.8 -Tunneling No No -Undermining/Tunneling No No -Circular Undermining No No -Wound/Ulcer Outcome Not Healed Not Healed -Ulcer Cleansing Rinsed/ Rinsed/ Irrigated with Irrigated with Saline Saline -Foul Odor after Cleansing No No -Bioengineered Tissue No No -Bleeding Controlled with Pressure Pressure -Offloading No No -Treatment Response Procedure Procedure Tolerated Well Tolerated Well -Debridement - Subq, 1st 20sq cm Yes Yes Pain Scale: 0-10 Numeric Is Patient Pain Free? Yes Yes - Nurse 3 - General Ulcer D/C NN Start: 08/17/20 10:49 Freq: Status: Active Protocol: Activity Type Activity Date Activity User E-Sign Co-Sign Detail Recorded Client Recorded Date Recorded By Document 08/17/20 11:39 [facility] [id number] 08/17/20 11:39 [facility] Document 08/24/20 11:38 [id number] 08/24/20 11:39 08/17/20 08/24/20 11:39 11:38 Wound Care Nurse 3 #2- coccyx/ Graft,post op -Ulcer Cleansing Rinsed/ Rinsed/ Irrigated with Irrigated with Saline Saline -Foul Odor after Cleansing No No -Primary Dressing Applied Aquacel AG 2x2 Silvercel -Primary Dressing Covered/Secured with Dry Gauze, Dry Gauze, Secured with Secured with Tape Tape -Aquacel AG 2x2 1 -Silvercel 1 Treatment Response Procedure Tolerated Well Pain Scale: 0-10 Numeric Is Patient Pain Free? Yes Yes - Visit Discharge Discharge Condition Stable Stable Ambulatory Status Wheelchair Wheelchair Transportation Private Auto Private Auto Accompanied by Medication Reconcilliation completed & Yes provided to patient/care provider Clinical Summary of Care Provided Yes Wound debrided: #2 Bilateral perianal area. Laterality: Not Applicable Wound Grade/Stage: 2. Type of Debridement: Excisional debridement Anesthesia Used: 4% Lidocaine Solution Depth: Down to and including healthy tissue, in the subcutaneous layer Percentage of wound debrided: 100 Instrument Used: 3mm curette Tissue Removed: subcutaneous tissue. Severity: Fat Layer Exposed Amount of bleeding with debridement: Mild Bleeding Controlled with: Pressure Patient tolerated procedure well, - - A wound culture was obtained today. Assessment/Plan Active Problems (Last Reviewed 08/10/20 @ 14:26 by Sonia Gonzalez) Skin graft (allograft) (autograft) failure (Chronic) Ulcer of perianal area with fat layer exposed (Chronic) nonhealing hidradenitis ulcer bilateral perianal areas Type 2 diabetes mellitus (Chronic) Assessment: 1. Nonhealing recurrent hidradenitis ulcer bilateral perianal area. 2. Hidradenitis. 3. Diabetes. 4. Compromised skin graft bilateral perianal area. 5. Former smoker. Plan: Continue Silver dressing changes daily. She finished Augmentin for preop culture (12/23/19) that showed Streptococcus anginosus, Corynebacterium striatum, and Anaerobic cocci. The operative culture was negative. Wound culture form 05/25/20 was positive for Strep angionosus, Corynebacterium minutissinum, and Actinomyces species. She was treated with Augmentin and has finished them. Another wound culture was obtained today 08/24/20. A positive culture will necessitate antibiotic therapy. She completed the HBO treatments which she tolerated well. Her Prealbumin was 13.0 from 02/17/20. Encourage nutritional supplementation with protein to help the healing process. HgbA1c from 04/11/19 was 7.4. Discussed surgical options with the patient for wound closure. Another skin graft is a possibility versus a local skin flap which can be problematic because of the amount of periwound scar tissue present. A fasciocutaneous flap can be done as well. Surgery would be difficult because she has some recent lung issues and a long complex flap procedure may not be the best option. Will see how much more improvement is seen in the ulcer now that the HBO is completed. Followup one week. [id number]: [id number] Kacey subq tissue 20 sq cm/< - ICD-10 - L98.492, L73.2, T86.828, E11.9, Z87.891
[2020-08-31 11:29] VITALS: BP 150/59; PULSE 79; TEMP 36.1; BMI 39.6
--- NOTE | 2020-08-31 12:45 | PN.PCM_ITS ---
(1) Ulcer of perianal area with fat layer exposed Status: Chronic Code(s): L98.492 - Non-pressure chronic ulcer of skin of other sites with fat layer exposed Comment: nonhealing hidradenitis ulcer bilateral perianal areas (2) Skin graft (allograft) (autograft) failure Status: Chronic Code(s): T86.821 - Skin graft (allograft) (autograft) failure (3) Type 2 diabetes mellitus Status: Chronic Code(s): E11.9 - Type 2 diabetes mellitus without complications Type of Wound Date of Service: 08/31/20 Chief Complaint: Nonhealing recurrent hidradenitis ulcer bilateral perianal area with skin graft compromise. History of Wound: Surgery 01/31/20 - Surgical preparation bilateral perianal area with excisional debridement nonhealing recurrent hidradenitis ulcer with FTSG reconstruction from left lower back/superior gluteal area (6.25 cm2) and placement AmnioFill placental connective tissue powder (250 mg). Wound care - Silver. Wound culture from 08/24/20 positive for Staphylococcus epidermidis and Anaerobic cocci. She was started on Clindamycin, Flagyl and a probiotic. Operative culture from 01/31/20- Negative. She was continued on Augmentin from a preop culture (12/23/19) that showed Streptococcus anginosus, Corynebacterium striatum, and Anaerobic cocci. Wound culture form 05/25/20 was positive for Strep angionosus, Corynebacterium minutissinum, and Actinomyces species. She was treated with Augmentin and has finished them. Prealbumin from 02/17/20 was 13 .0. Encourage nutritional supplementation with protein to help the healing process. HgbA1c from 04/11/19 was 7.4. There is compromise of the skin graft. Patient had HBO treatments with some improvement in the healing hidradenitis ulcer and has finished them. Today she denies fever. Her appetite is ok. She has developed recent lung issues that has required some oxygen. Progress of Wound: Done with HBO. Ulcer stable. - Physical Exam Vital Signs Temp Pulse Resp BP 96.9 F L 79 22 H 150/59 H 08/31/20 11:29 08/31/20 11:29 08/24/20 10:58 08/31/20 11:29 General: Alert, Oriented x3, Cooperative HEENT: Atraumatic Oral: Moist Mucosa Lungs: Short of Breath - on portable oxygen Cardiovascular: Regular rate Abdomen: Obese Extremities: Capillary Refill Less than 3 Seconds Skin: Ulcer/ Wound - Coccyx ulcer beefy pink and stable in appearance. Wound Measurements and Assessment - Nurse 1 - General Ulcer Measurement Start: 08/17/20 10:49 Freq: Status: Active Protocol: Activity Type Activity Date Activity User E-Sign Co-Sign Detail Recorded Client Recorded Date Recorded By Document 08/31/20 11:29 TYSON [id number] 08/31/20 11:37 TYSON 08/31/20 11:29 Wound Center Nurse 1 [Ulcer Assessment] #2- coccyx/ Graft,post op -Current Size (cm) - Length 1.8 -Current Size (cm) - Width 0.5 -Current Size (cm) - Depth 0.6 -Total Square Cm 0.90 -Exudate Amt Medium -Exudate Type Serosanguineous -Wound Margin Distinct, Outline Attached -Granulation Amt Medium (34-66%) -Granulation Quality Red -Necrosis Amt Medium (34-66%) -Necrotic Tissue Type Adherent Slough -Texture (Hailee-wound Skin Appearance) Assessed, Scarring -Moisture (Hailee-wound Skin Appearance No Abnormality, ) Assessed -Color (Hailee-wound Skin Appearance) No Abnormality, Assessed -Temperature (Hailee-wound Skin No Abnormality Appearance) (Pt Warm) -Tenderness on Palpation (Hailee-wound No Skin Appearance) -Ulcer Cleansing Rinsed/ Irrigated with Saline -Foul Odor after Cleansing No -Anesthetic Used 4% Lidocaine Solution - Nurse 2 - General Ulcer CM Notes Start: 08/17/20 10:49 Freq: Status: Active Protocol: Activity Type Activity Date Activity User E-Sign Co-Sign Detail Recorded Client Recorded Date Recorded By Document 08/31/20 11:57 DL [id number] 08/31/20 12:01 DL 08/31/20 11:57 Wound Center Nurse 2 [Procedure/Treatment] -Time 11:57 -Correct Patient Yes -Correct Side, Site, Position Yes -Correct Procedure Yes -Procedure Performed Yes -Type of Procedure Debridement -Clinical Debridement Subcutaneous -Tissue Removed Subcutaneous -Post Debridement (cm) - Length 2 -Post Debridement (cm) - Width 0.8 -Post Debridement (cm) - Depth 0.8 -Total Square (Post) (cm) 1.6 -Area of Debridement (cm) - Length 2 -Area of Debridement (cm) - Width 0.8 -Total Square (Area) (cm) 1.6 -Tunneling No -Undermining/Tunneling No -Circular Undermining No -Wound/Ulcer Outcome Not Healed -Ulcer Cleansing Rinsed/ Irrigated with Saline -Foul Odor after Cleansing No -Bioengineered Tissue No -Bleeding Controlled with Pressure -Offloading No -Treatment Response Procedure Tolerated Well -Debridement - Subq, 1st 20sq cm Yes [See Physician Procedure note for Specifics] Pain Scale: 0-10 Numeric [Pain] -Is Patient Pain Free? Yes - Nurse 3 - General Ulcer D/C NN Start: 08/17/20 10:49 Freq: Status: Active Protocol: Activity Type Activity Date Activity User E-Sign Co-Sign Detail Recorded Client Recorded Date Recorded By Document 08/31/20 12:07 TYSON [id number] 08/31/20 12:08 TYSON 08/31/20 12:07 Wound Care Nurse 3 [Wound Dressing] #2- coccyx/ Graft,post op -Ulcer Cleansing Rinsed/ Irrigated with Saline -Foul Odor after Cleansing No -Primary Dressing Applied Aquacel AG 2x2 -Primary Dressing Covered/Secured Dry Gauze, with Secured with Tape -Aquacel AG 2x2 1 Pain Scale: 0-10 Numeric [Pain] -Is Patient Pain Free? Yes - Visit Discharge [Visit Discharge Information] -Discharge Condition Stable -Ambulatory Status Walker -Transportation Private Auto -Accompanied by Musculoskeletal: No Tenderness to Palpation of Joints or Extremities Neurological: Cranial nerves II-XII grossly intact Psych/Mental Status: Normal Affect Debridement Note Post-Debridement Measurements/Treatment - Nurse 2 - General Ulcer CM Notes Start: 08/17/20 10:49 Freq: Status: Active Protocol: Activity Type Activity Date Activity User E-Sign Co-Sign Detail Recorded Client Recorded Date Recorded By Document 08/17/20 11:27 DL [id number] 08/17/20 11:29 Document 08/24/20 11:37 [id number] 08/24/20 11:38 Document 08/31/20 11:57 [id number] 08/31/20 12:01 08/17/20 08/24/20 08/31/20 11:27 11:37 11:57 Wound Center Nurse 2 #2- coccyx/ Graft,post op -Time 11:27 11:37 11:57 -Correct Patient Yes Yes Yes -Correct Side, Site, Position Yes Yes Yes -Correct Procedure Yes Yes Yes -Procedure Performed Yes Yes Yes -Type of Procedure Debridement Debridement Debridement -Clinical Debridement Subcutaneous Subcutaneous Subcutaneous -Tissue Removed Subcutaneous Subcutaneous Subcutaneous -Post Debridement (cm) - Length 2.2 1.8 2 -Post Debridement (cm) - Width 1 1 0.8 -Post Debridement (cm) - Depth 0.7 0.6 0.8 -Total Square (Post) (cm) 2.2 1.8 1.6 -Area of Debridement (cm) - Length 2.2 1.8 2 -Area of Debridement (cm) - Width 1 1 0.8 -Total Square (Area) (cm) 2.2 1.8 1.6 -Tunneling No No No -Undermining/Tunneling No No No -Circular Undermining No No No -Wound/Ulcer Outcome Not Healed Not Healed Not Healed -Ulcer Cleansing Rinsed/ Rinsed/ Rinsed/ Irrigated with Irrigated with Irrigated with Saline Saline Saline -Foul Odor after Cleansing No No No -Bioengineered Tissue No No No -Bleeding Controlled with Pressure Pressure Pressure -Offloading No No No -Treatment Response Procedure Procedure Procedure Tolerated Well Tolerated Well Tolerated Well -Debridement - Subq, 1st 20sq cm Yes Yes Yes Pain Scale: 0-10 Numeric Is Patient Pain Free? Yes Yes Yes - Nurse 3 - General Ulcer D/C NN Start: 08/17/20 10:49 Freq: Status: Active Protocol: Activity Type Activity Date Activity User E-Sign Co-Sign Detail Recorded Client Recorded Date Recorded By Document 08/17/20 11:39 [facility] [id number] 08/17/20 11:39 [facility] Document 08/24/20 11:38 [id number] 08/24/20 11:39 JF Document 08/31/20 12:07 KR [id number] 08/31/20 12:08 KR 08/17/20 08/24/20 08/31/20 11:39 11:38 12:07 Wound Care Nurse 3 #2- coccyx/ Graft,post op -Ulcer Cleansing Rinsed/ Rinsed/ Rinsed/ Irrigated with Irrigated with Irrigated with Saline Saline Saline -Foul Odor after Cleansing No No No -Primary Dressing Applied Aquacel AG 2x2 Silvercel Aquacel AG 2x2 -Primary Dressing Covered/Secured with Dry Gauze, Dry Gauze, Dry Gauze, Secured with Secured with Secured with Tape Tape Tape -Aquacel AG 2x2 1 1 -Silvercel 1 Treatment Response Procedure Tolerated Well Pain Scale: 0-10 Numeric Is Patient Pain Free? Yes Yes Yes WC - Visit Discharge Discharge Condition Stable Stable Stable Ambulatory Status Wheelchair Wheelchair Walker Transportation Private Auto Private Auto Private Auto Accompanied by Medication Reconcilliation completed & Yes provided to patient/care provider Clinical Summary of Care Provided Yes Wound debrided: Coccyx ulcer Type of Debridement: Excisional debridement Anesthesia Used: 5% Lidocaine Gel Depth: Down to and including healthy tissue, in the subcutaneous layer Percentage of wound debrided: 100 Instrument Used: 3mm curette Tissue Removed: Subcutaneous tissue and slough Severity: Fat Layer Exposed Amount of bleeding with debridement: Mild Bleeding Controlled with: Pressure Patient tolerated procedure well Assessment/Plan Active Problems (Last Reviewed 08/10/20 @ 14:26 by Sonia Gonzalez) Skin graft (allograft) (autograft) failure (Chronic) Ulcer of perianal area with fat layer exposed (Chronic) nonhealing hidradenitis ulcer bilateral perianal areas Type 2 diabetes mellitus (Chronic) Assessment: 1. Nonhealing recurrent hidradenitis ulcer bilateral perianal area. 2. Hidradenitis. 3. Diabetes. 4. Compromised skin graft bilateral perianal area. 5. Former smoker. Plan: Continue Silver dressing changes daily. Use Aquafor or A&D ointment for her periwound for a skin barrier. Another wound culture was obtained on 08/24/20 and was positive for Staphylococcus epidermidis and Anaerobic cocci. She was started on Clindamycin, Flagyl and a probiotic. Her Prealbumin was 13.0 from 02/17/20. Encourage nutritional supplementation with protein to help the healing process. HgbA1c from 04/11/19 was 7.4. Discussed surgical options with the patient for wound closure. Another skin graft is a possibility versus a local skin flap which can be problematic because of the amount of periwound scar tissue present. A fasciocutaneous flap can be done as well. Surgery would be difficult because she has some recent lung issues and a long complex flap procedure may not be the best option. Will see how much more improvement is seen in the ulcer now that the HBO is completed. Followup two weeks. [id number]: [id number] Kacey subq tissue 20 sq cm/<
== END 2020-09-06 23:59 ==
LOC: WC 11:15
PROVIDERS: Family Provider Nurse Practitioner Family; PCP Student in an Organized Health Care Education/Training Program; Referring Provider Surgery; Visit Provider Surgery
DX: L73.2 Hidradenitis suppurativa (principal); L98.492 Non-pressure chronic ulcer of skin of other sites with fat layer exposed; E11.9 Type 2 diabetes mellitus without complications; T86.821 Skin graft (allograft) (autograft) failure; Y83.8 Other surgical procedures as the cause of abnormal reaction of the patient, or of later complication, without mention of misadventure at the time of the procedure; Z87.891 Personal history of nicotine dependence
CPT/HCPCS: 11042; 87070; 87075; 87077; 87186; 87205

== ENCOUNTER 2020-09-21 11:15 | Outpatient (RCR) | payer MEDICARE, OTHER, SELFPAY ==
[2020-09-07 00:14] VITALS: BP 150/59; PULSE 79; RESP 22; TEMP 36.1
[2020-09-14 11:20] VITALS: BP 134/56; PULSE 96; RESP 20; TEMP 36.3; BMI 39.6
--- NOTE | 2020-09-14 12:28 | PCM.WC.PN ---
(1) Ulcer of perianal area with fat layer exposed Status: Chronic Code(s): L98.492 - Non-pressure chronic ulcer of skin of other sites with fat layer exposed Comment: nonhealing hidradenitis ulcer bilateral perianal areas (2) Labial tear Status: Acute Code(s): S31.41XA - Laceration without foreign body of vagina and vulva, initial encounter (3) Type 2 diabetes mellitus Status: Chronic Code(s): E11.9 - Type 2 diabetes mellitus without complications Type of Wound Date of Service: 09/14/20 Chief Complaint: Nonhealing recurrent hidradenitis ulcer bilateral perianal area with skin graft compromise. History of Wound: Surgery 01/31/20 - Surgical preparation bilateral perianal area with excisional debridement nonhealing recurrent hidradenitis ulcer with FTSG reconstruction from left lower back/superior gluteal area (6.25 cm2) and placement AmnioFill placental connective tissue powder (250 mg). Wound care - Silver. Wound culture from 08/24/20 positive for Staphylococcus epidermidis and Anaerobic cocci. She was started on Clindamycin, Flagyl and a probiotic. Operative culture from 01/31/20- Negative. She was continued on Augmentin from a preop culture (12/23/19) that showed Streptococcus anginosus, Corynebacterium striatum, and Anaerobic cocci. Wound culture form 05/25/20 was positive for Strep angionosus, Corynebacterium minutissinum, and Actinomyces species. She was treated with Augmentin and has finished them. Prealbumin from 02/17/20 was 13.0. Encourage nutritional supplementation with protein to help the healing process. HgbA1c from 04/11/19 was 7.4. There is compromise of the skin graft. Patient had HBO treatments with some improvement in the healing hidradenitis ulcer and has finished them. Today she denies fever. Her appetite is ok. She has developed recent lung issues that has required some oxygen. Progress of Wound: Ulcer stable. Has a skin tear on left labia. - Physical Exam Vital Signs Temp Pulse Resp BP 97.4 F L 96 20 H 134/56 H 09/14/20 11:20 09/14/20 11:20 09/14/20 11:20 09/14/20 11:20 General: Alert, Oriented x3, Cooperative HEENT: Atraumatic Oral: Moist Mucosa Lungs: Normal air movement - Uses supplemental oxygen Cardiovascular: Regular rate Abdomen: Soft, Obese Extremities: Capillary Refill Less than 3 Seconds Skin: Ulcer/ Wound - Ulcer of coccyx is stable, pink, bleeds easily. Left posterior labia has small wound separation. Wound Measurements and Assessment WC - Nurse 1 - General Ulcer Measurement Start: 09/14/20 11:15 Freq: Status: Active Protocol: Activity Type Activity Date Activity User E-Sign Co-Sign Detail Recorded Client Recorded Date Recorded By Document 09/14/20 11:20 DL [id number] 09/14/20 11:30 DL 09/14/20 11:20 Wound Center Nurse 1 [Ulcer Assessment] #4 Labia/fold -Current Size (cm) - Length 0.4 -Current Size (cm) - Width 0.4 -Current Size (cm) - Depth 0.3 -Total Square Cm 0.16 -Photo Taken Yes -Exudate Amt Small -Exudate Type Sanguineous -Wound Margin Distinct, Outline Attached -Granulation Amt Large (67-100%) -Granulation Quality Red -Necrosis Amt Small (1-33%) -Necrotic Tissue Type Adherent Slough -Structure Exposed N/A -Texture (Hailee-wound Skin Appearance) Scarring -Moisture (Hailee-wound Skin Appearance No Abnormality ) -Color (Hailee-wound Skin Appearance) No Abnormality -Temperature (Hailee-wound Skin No Abnormality Appearance) (Pt Warm) -Ulcer Cleansing Wound Cleanser -Foul Odor after Cleansing No -Anesthetic Used 4% Lidocaine Solution #2- coccyx/ Graft,post op -Current Size (cm) - Length 1.2 -Current Size (cm) - Width 0.6 -Current Size (cm) - Depth 0.4 -Total Square Cm 0.72 -Photo Taken No -Exudate Amt Small -Exudate Type Serosanguineous -Wound Margin Distinct, Outline Attached -Granulation Amt Large (67-100%) -Granulation Quality Red -Necrosis Amt Small (1-33%) -Necrotic Tissue Type Adherent Slough -Structure Exposed N/A -Texture (Hailee-wound Skin Appearance) Scarring -Moisture (Hailee-wound Skin Appearance No Abnormality ) -Color (Hailee-wound Skin Appearance) No Abnormality -Temperature (Hailee-wound Skin No Abnormality Appearance) (Pt Warm) -Tenderness on Palpation (Hailee-wound No Skin Appearance) -Ulcer Cleansing Wound Cleanser -Foul Odor after Cleansing No -Anesthetic Used 4% Lidocaine Solution ADAMS - Nurse 2 - General Ulcer CM Notes Start: 09/14/20 11:15 Freq: Status: Active Protocol: Activity Type Activity Date Activity User E-Sign Co-Sign Detail Recorded Client Recorded Date Recorded By Document 09/14/20 11:44 DL [id number] 09/14/20 11:57 09/14/20 11:44 Wound Center Nurse 2 [Procedure/Treatment] #4 Labia/fold -Time 11:51 -Correct Patient No -Correct Side, Site, Position No -Correct Procedure No -Procedure Performed No -Tunneling No -Undermining/Tunneling No -Circular Undermining No -Wound/Ulcer Outcome Not Healed -Ulcer Cleansing Rinsed/ Irrigated with Saline -Foul Odor after Cleansing No -Bioengineered Tissue No -Bleeding Controlled with Pressure -Offloading No -Treatment Response Procedure Tolerated Well -Debridement - Subq, 1st 20sq cm No #2- coccyx/ Graft,post op -Time 11:52 -Correct Patient Yes -Correct Side, Site, Position Yes -Correct Procedure Yes -Procedure Performed Yes -Type of Procedure Debridement -Clinical Debridement Subcutaneous -Tissue Removed Subcutaneous -Post Debridement (cm) - Length 2.5 -Post Debridement (cm) - Width 0.5 -Post Debridement (cm) - Depth 0.3 -Total Square (Post) (cm) 1.25 -Area of Debridement (cm) - Length 2.5 -Area of Debridement (cm) - Width 0.5 -Total Square (Area) (cm) 1.25 -Tunneling No -Undermining/Tunneling No -Circular Undermining No -Wound/Ulcer Outcome Not Healed -Ulcer Cleansing Rinsed/ Irrigated with Saline -Foul Odor after Cleansing No -Bioengineered Tissue No -Bleeding Controlled with Pressure -Offloading No -Treatment Response Procedure Tolerated Well -Debridement - Subq, 1st 20sq cm Yes [See Physician Procedure note for Specifics] Pain Scale: 0-10 Numeric [Pain] -Is Patient Pain Free? Yes ADAMS - Nurse 3 - General Ulcer D/C NN Start: 09/14/20 11:15 Freq: Status: Active Protocol: Activity Type Activity Date Activity User E-Sign Co-Sign Detail Recorded Client Recorded Date Recorded By Document 09/14/20 12:04 SERINA [id number] 09/14/20 12:09 SERINA 09/14/20 12:04 Wound Care Nurse 3 [Wound Dressing] #4 Labia/fold -Ulcer Cleansing Rinsed/ Irrigated with Saline -Foul Odor after Cleansing No -Other Dressing A&D -Primary Dressing Covered/Secured Dry Gauze, with Secured with Tape #2- coccyx/ Graft,post op -Ulcer Cleansing Rinsed/ Irrigated with Saline -Foul Odor after Cleansing No -Primary Dressing Applied Aquacel AG 2x2 -Primary Dressing Covered/Secured Dry Gauze, with Secured with Tape -Aquacel AG 2x2 1 [Post Procedure Tolerated] -Treatment Response Procedure Tolerated Well Pain Scale: 0-10 Numeric [Pain] -Is Patient Pain Free? Yes WC - Visit Discharge [Visit Discharge Information] -Discharge Condition Stable -Ambulatory Status Wheelchair -Transportation Private Auto Musculoskeletal: Tenderness Neurological: Cranial nerves II-XII grossly intact Psych/Mental Status: Normal Affect, Appropriate Debridement Note Post-Debridement Measurements/Treatment WC - Nurse 2 - General Ulcer CM Notes Start: 09/14/20 11:15 Freq: Status: Active Protocol: Activity Type Activity Date Activity User E-Sign Co-Sign Detail Recorded Client Recorded Date Recorded By Document 09/14/20 11:44 DL [id number] 09/14/20 11:57 DL 09/14/20 11:44 Wound Center Nurse 2 #4 Labia/fold -Time 11:51 -Correct Patient No -Correct Side, Site, Position No -Correct Procedure No -Procedure Performed No -Tunneling No -Undermining/Tunneling No -Circular Undermining No -Wound/Ulcer Outcome Not Healed -Ulcer Cleansing Rinsed/ Irrigated with Saline -Foul Odor after Cleansing No -Bioengineered Tissue No -Bleeding Controlled with Pressure -Offloading No -Treatment Response Procedure Tolerated Well -Debridement - Subq, 1st 20sq cm No #2- coccyx/ Graft,post op -Time 11:52 -Correct Patient Yes -Correct Side, Site, Position Yes -Correct Procedure Yes -Procedure Performed Yes -Type of Procedure Debridement -Clinical Debridement Subcutaneous -Tissue Removed Subcutaneous -Post Debridement (cm) - Length 2.5 -Post Debridement (cm) - Width 0.5 -Post Debridement (cm) - Depth 0.3 -Total Square (Post) (cm) 1.25 -Area of Debridement (cm) - Length 2.5 -Area of Debridement (cm) - Width 0.5 -Total Square (Area) (cm) 1.25 -Tunneling No -Undermining/Tunneling No -Circular Undermining No -Wound/Ulcer Outcome Not Healed -Ulcer Cleansing Rinsed/ Irrigated with Saline -Foul Odor after Cleansing No -Bioengineered Tissue No -Bleeding Controlled with Pressure -Offloading No -Treatment Response Procedure Tolerated Well -Debridement - Subq, 1st 20sq cm Yes Pain Scale: 0-10 Numeric Is Patient Pain Free? Yes - Nurse 3 - General Ulcer D/C NN Start: 09/14/20 11:15 Freq: Status: Active Protocol: Activity Type Activity Date Activity User E-Sign Co-Sign Detail Recorded Client Recorded Date Recorded By Document 09/14/20 12:04 SERINA [id number] 09/14/20 12:09 DL 09/14/20 12:04 Wound Care Nurse 3 #4 Labia/fold -Ulcer Cleansing Rinsed/ Irrigated with Saline -Foul Odor after Cleansing No -Other Dressing A&D -Primary Dressing Covered/Secured with Dry Gauze, Secured with Tape #2- coccyx/ Graft,post op -Ulcer Cleansing Rinsed/ Irrigated with Saline -Foul Odor after Cleansing No -Primary Dressing Applied Aquacel AG 2x2 -Primary Dressing Covered/Secured with Dry Gauze, Secured with Tape -Aquacel AG 2x2 1 Treatment Response Procedure Tolerated Well Pain Scale: 0-10 Numeric Is Patient Pain Free? Yes - Visit Discharge Discharge Condition Stable Ambulatory Status Wheelchair Transportation Private Auto Wound debrided: coccyx ulcer Type of Debridement: Excisional debridement Anesthesia Used: 5% Lidocaine Gel Depth: Down to and including healthy tissue, in the subcutaneous layer Percentage of wound debrided: 100 Instrument Used: 3mm curette Tissue Removed: Subcutaneous tissue and slough Severity: Limited To Skin Breakdown Amount of bleeding with debridement: Mild Bleeding Controlled with: Pressure, Compression and gauze Patient tolerated procedure well Assessment/Plan Assessment: 1. Nonhealing recurrent hidradenitis ulcer bilateral perianal area. 2. Hidradenitis. 3. Diabetes. 4. Compromised skin graft bilateral perianal area. 5. Former smoker. Plan: Continue Silver dressing changes daily. Use Aquafor or A&D ointment for her periwound for a skin barrier. Hailee wound looks good with no excoriation. Left posterior labia has small wound, apply antibiotic ointment to the area. Another wound culture was obtained on 08/24/20 and was positive for Staphylococcus epidermidis and Anaerobic cocci. She was started on Clindamycin, Flagyl and a probiotic which she has completed. Her Prealbumin was 13.0 from 02/17/20. Encourage nutritional supplementation with protein to help the healing process. HgbA1c from 04/11/19 was 7.4. Discussed surgical options with the patient for wound closure. Another skin graft is a possibility versus a local skin flap which can be problematic because of the amount of periwound scar tissue present. A fasciocutaneous flap can be done as well. Surgery would be difficult because she has some recent lung issues and a long complex flap procedure may not be the best option. Will see how much more improvement is seen in the ulcer now that the HBO is completed. Followup one week. [id number]: [id number] Kacey subq tissue 20 sq cm/<
[2020-09-21 11:07] VITALS: BP 134/53; PULSE 87; RESP 18; TEMP 35.8; BMI 39.6
--- NOTE | 2020-09-21 23:34 | PCM.WC.PN ---
Type of Wound Date of Service: 09/21/20 Chief Complaint: Nonhealing recurrent hidradenitis ulcer bilateral perianal area and left vulval hidradenitis. History of Wound: Surgery 01/31/20 - Surgical preparation bilateral perianal area with excisional debridement nonhealing recurrent hidradenitis ulcer with FTSG reconstruction from left lower back/superior gluteal area (6.25 cm2) and placement AmnioFill placental connective tissue powder (250 mg). Wound care - Silver. Wound culture from 08/24/20 positive for MRSE and Anaerobic cocci. She was started on Clindamycin, Flagyl and a probiotic. She has finished the Flagyl. Operative culture from 01/31/20- Negative. She was continued on Augmentin from a preop culture (12/23/19) that showed Streptococcus anginosus, Corynebacterium striatum, and Anaerobic cocci. Wound culture form 05/25/20 was positive for Strep angionosus, Corynebacterium minutissinum, and Actinomyces species. She was treated with Augmentin and has finished them. Prealbumin from 02/17/20 was 13.0. Encourage nutritional supplementation with protein to help the healing process. HgbA1c from 04/11/19 was 7.4. There was compromise of the skin graft. Patient had HBO treatments with some improvement in the healing hidradenitis ulcer and has finished them. She has an abrasion on her left vulval area with chronic hidradenitis. Will write for Doxycycline that she will use for flare ups. May need operative intervention in the future. The patient wants to hold off on surgery at this time. Today she denies fever. Her appetite is ok. She has developed recent lung issues that has required some oxygen. Progress of Wound: Ulcer stable. Has left vulval hidradenitis. - Physical Exam Vital Signs Temp Pulse Resp BP 96.5 F L 87 18 134/53 H 09/21/20 11:07 09/21/20 11:07 09/21/20 11:07 09/21/20 11:07 Skin: - - has left vulval hidradenitis extending from the genitocrural crease up to the labia. No purulent drainage. Some tenderness. Some induration. Wound Measurements and Assessment WC - Nurse 1 - General Ulcer Measurement Start: 09/14/20 11:15 Freq: Status: Active Protocol: Activity Type Activity Date Activity User E-Sign Co-Sign Detail Recorded Client Recorded Date Recorded By Document 09/21/20 11:07 [facility] [id number] 09/21/20 11:20 [facility] 09/21/20 11:07 Wound Center Nurse 1 [Ulcer Assessment] #4 Labia/fold -Combined with other wound No -Current Size (cm) - Length 1.1 -Current Size (cm) - Width 0.3 -Current Size (cm) - Depth 0.4 -Total Square Cm 0.33 -Photo Taken No -Epithelialization Small 1-33% -Tunneling No -Undermining/Tunneling No -Circular Undermining No -Exudate Amt Medium -Exudate Type Serosanguineous -Wound Margin Thickened & Rolled Under -Granulation Amt Large (67-100%) -Granulation Quality Red -Slough/Fibrin No -Necrosis Amt None Present (0 %) -Texture (Hailee-wound Skin Appearance) Assessed, Scarring -Moisture (Hailee-wound Skin Appearance Assessed ) -Color (Hailee-wound Skin Appearance) Assessed -Temperature (Hailee-wound Skin No Abnormality Appearance) (Pt Warm) -Tenderness on Palpation (Hailee-wound No Skin Appearance) -Ulcer Cleansing soapy water -Foul Odor after Cleansing No -Anesthetic Used 4% Lidocaine Solution #2- coccyx/ Graft,post op -Combined with other wound No -Current Size (cm) - Length 1.6 -Current Size (cm) - Width 0.6 -Current Size (cm) - Depth 0.3 -Total Square Cm 0.96 -Photo Taken No -Epithelialization None Present -Tunneling No -Undermining/Tunneling No -Circular Undermining No -Exudate Amt Medium -Exudate Type Serosanguineous -Wound Margin Distinct, Outline Attached -Granulation Amt Large (67-100%) -Granulation Quality Red -Slough/Fibrin No -Necrosis Amt None Present (0 %) -Texture (Hailee-wound Skin Appearance) Assessed, Scarring -Moisture (Hailee-wound Skin Appearance Assessed ) -Color (Hailee-wound Skin Appearance) Assessed -Temperature (Hailee-wound Skin No Abnormality Appearance) (Pt Warm) -Tenderness on Palpation (Hailee-wound No Skin Appearance) -Ulcer Cleansing Rinsed/ Irrigated with Saline -Foul Odor after Cleansing No -Anesthetic Used 4% Lidocaine Solution ADAMS - Nurse 2 - General Ulcer CM Notes Start: 09/14/20 11:15 Freq: Status: Active Protocol: Activity Type Activity Date Activity User E-Sign Co-Sign Detail Recorded Client Recorded Date Recorded By Document 09/21/20 11:48 [id number] 09/21/20 11:56 09/21/20 11:48 Wound Center Nurse 2 [Procedure/Treatment] #4 Labia/fold -Correct Patient No -Correct Side, Site, Position No -Correct Procedure No -Procedure Performed No -Wound/Ulcer Outcome Not Healed -Debridement - Subq, 1st 20sq cm No #2- coccyx/ Graft,post op -Time 11:53 -Correct Patient No -Correct Side, Site, Position No -Correct Procedure No -Procedure Performed No -Type of Procedure Debridement -Clinical Debridement Subcutaneous -Post Debridement (cm) - Length 1.5 -Post Debridement (cm) - Width 0.5 -Post Debridement (cm) - Depth 0.6 -Total Square (Post) (cm) 0.75 -Area of Debridement (cm) - Length 1.5 -Area of Debridement (cm) - Width 0.5 -Total Square (Area) (cm) 0.75 -Tunneling No -Undermining/Tunneling No -Circular Undermining No -Wound/Ulcer Outcome Not Healed -Ulcer Cleansing Rinsed/ Irrigated with Saline -Foul Odor after Cleansing No -Bioengineered Tissue No -Bleeding Controlled with Pressure -Offloading No -Treatment Response Procedure Tolerated Well -Debridement - Subq, 1st 20sq cm Yes [See Physician Procedure note for Specifics] Pain Scale: 0-10 Numeric [Pain] -Is Patient Pain Free? Yes ADAMS - Nurse 3 - General Ulcer D/C NN Start: 09/14/20 11:15 Freq: Status: Active Protocol: Activity Type Activity Date Activity User E-Sign Co-Sign Detail Recorded Client Recorded Date Recorded By Document 09/21/20 12:01 [facility] [id number] 09/21/20 12:02 [facility] 09/21/20 12:01 Wound Care Nurse 3 [Wound Dressing] #4 Labia/fold -Ulcer Cleansing Rinsed/ Irrigated with Saline -Foul Odor after Cleansing No -Primary Dressing Applied Silvercel -Primary Dressing Covered/Secured Dry Gauze, with Secured with Tape -Silvercel 1 #2- coccyx/ Graft,post op -Ulcer Cleansing Rinsed/ Irrigated with Saline -Foul Odor after Cleansing No -Primary Dressing Applied Silvercel -Primary Dressing Covered/Secured Dry Gauze, with Secured with Tape -Silvercel 0 [Post Procedure Tolerated] -Treatment Response Procedure Tolerated Well Pain Scale: 0-10 Numeric [Pain] -Is Patient Pain Free? Yes - Visit Discharge [Visit Discharge Information] -Discharge Condition Stable -Ambulatory Status Wheelchair -Transportation Private Auto -Accompanied by [Facility Notification] -Other [facility]ED LIVING Debridement Note Post-Debridement Measurements/Treatment - Nurse 2 - General Ulcer CM Notes Start: 09/14/20 11:15 Freq: Status: Active Protocol: Activity Type Activity Date Activity User E-Sign Co-Sign Detail Recorded Client Recorded Date Recorded By Document 09/14/20 11:44 [id number] 09/14/20 11:57 Document 09/21/20 11:48 [id number] 09/21/20 11:56 09/14/20 09/21/20 11:44 11:48 Wound Center Nurse 2 #4 Labia/fold -Time 11:51 -Correct Patient No No -Correct Side, Site, Position No No -Correct Procedure No No -Procedure Performed No No -Tunneling No -Undermining/Tunneling No -Circular Undermining No -Wound/Ulcer Outcome Not Healed Not Healed -Ulcer Cleansing Rinsed/ Irrigated with Saline -Foul Odor after Cleansing No -Bioengineered Tissue No -Bleeding Controlled with Pressure -Offloading No -Treatment Response Procedure Tolerated Well -Debridement - Subq, 1st 20sq cm No No #2- coccyx/ Graft,post op -Time 11:52 11:53 -Correct Patient Yes No -Correct Side, Site, Position Yes No -Correct Procedure Yes No -Procedure Performed Yes No -Type of Procedure Debridement Debridement -Clinical Debridement Subcutaneous Subcutaneous -Tissue Removed Subcutaneous -Post Debridement (cm) - Length 2.5 1.5 -Post Debridement (cm) - Width 0.5 0.5 -Post Debridement (cm) - Depth 0.3 0.6 -Total Square (Post) (cm) 1.25 0.75 -Area of Debridement (cm) - Length 2.5 1.5 -Area of Debridement (cm) - Width 0.5 0.5 -Total Square (Area) (cm) 1.25 0.75 -Tunneling No No -Undermining/Tunneling No No -Circular Undermining No No -Wound/Ulcer Outcome Not Healed Not Healed -Ulcer Cleansing Rinsed/ Rinsed/ Irrigated with Irrigated with Saline Saline -Foul Odor after Cleansing No No -Bioengineered Tissue No No -Bleeding Controlled with Pressure Pressure -Offloading No No -Treatment Response Procedure Procedure Tolerated Well Tolerated Well -Debridement - Subq, 1st 20sq cm Yes Yes Pain Scale: 0-10 Numeric Is Patient Pain Free? Yes Yes - Nurse 3 - General Ulcer D/C NN Start: 09/14/20 11:15 Freq: Status: Active Protocol: Activity Type Activity Date Activity User E-Sign Co-Sign Detail Recorded Client Recorded Date Recorded By Document 09/14/20 12:04 DL [id number] 09/14/20 12:09 DL Document 09/21/20 12:01 [facility] [id number] 09/21/20 12:02 [facility] 09/14/20 09/21/20 12:04 12:01 Wound Care Nurse 3 #4 Labia/fold -Ulcer Cleansing Rinsed/ Rinsed/ Irrigated with Irrigated with Saline Saline -Foul Odor after Cleansing No No -Primary Dressing Applied Silvercel -Other Dressing A&D -Primary Dressing Covered/Secured with Dry Gauze, Dry Gauze, Secured with Secured with Tape Tape -Silvercel 1 #2- coccyx/ Graft,post op -Ulcer Cleansing Rinsed/ Rinsed/ Irrigated with Irrigated with Saline Saline -Foul Odor after Cleansing No No -Primary Dressing Applied Aquacel AG 2x2 Silvercel -Primary Dressing Covered/Secured with Dry Gauze, Dry Gauze, Secured with Secured with Tape Tape -Aquacel AG 2x2 1 -Silvercel 0 Treatment Response Procedure Procedure Tolerated Well Tolerated Well Pain Scale: 0-10 Numeric Is Patient Pain Free? Yes Yes - Visit Discharge Discharge Condition Stable Stable Ambulatory Status Wheelchair Wheelchair Transportation Private Auto Private Auto Accompanied by Other [facility]ISTED LIVING Wound debrided: #2 Bilateral perianal area. Laterality: Not Applicable Wound Grade/Stage: 2. Type of Debridement: Excisional debridement Anesthesia Used: 4% Lidocaine Solution Depth: Down to and including healthy tissue, in the subcutaneous layer Percentage of wound debrided: 100 Instrument Used: 3mm curette Tissue Removed: subcutaneous tissue. Severity: Fat Layer Exposed Amount of bleeding with debridement: Mild Bleeding Controlled with: Pressure Patient tolerated procedure well Assessment/Plan Active Problems (Last Reviewed 08/10/20 @ 14:26 by Sonia Gonzalez) Labial tear (Acute) Ulcer of perianal area with fat layer exposed (Chronic) nonhealing hidradenitis ulcer bilateral perianal areas Type 2 diabetes mellitus (Chronic) Assessment: 1. Nonhealing recurrent hidradenitis ulcer bilateral perianal area. 2. Left vulval hidradenitis. 3. Diabetes. 4. Hidradenitis. 5. Former smoker. Plan: Continue Silver dressing changes daily. Wound culture was obtained from 08/24/20. It showed MRSE and Anaerobi cocci. She was placed on Clindamycin and Flagyl. She has finished the Flagyl. She completed the HBO treatments which she tolerated well. Her Prealbumin was 13.0 from 02/17/20. Encourage nutritional supplementation with protein to help the healing process. HgbA1c from 04/11/19 was 7.4. Discussed surgical options with the patient for wound closure. Another skin graft is a possibility versus a local skin flap which can be problematic because of the amount of periwound scar tissue present. A fasciocutaneous flap can be done as well. Surgery would be difficult because she has some recent lung issues and a long complex flap procedure may not be the best option. Will see how much more improvement is seen in the ulcer now that the HBO is completed. She has recent flare up of left vulval hidradenitis. To help absorb drainage, she will apply Silver there as well. Will send in script for Doxycycline that she will use for flare ups. She understands that surgery may be necessary in the future. Followup 2 weeks. [id number]: [id number] Kacey subq tissue 20 sq cm/< - ICD-10 - L98.492, L73.2, E11.9, Z87.891
== END 2020-10-04 23:59 ==
LOC: WC 11:15
PROVIDERS: Family Provider Nurse Practitioner Family; PCP Student in an Organized Health Care Education/Training Program; Referring Provider Surgery; Visit Provider Surgery
DX: L73.2 Hidradenitis suppurativa (principal); E11.9 Type 2 diabetes mellitus without complications; L98.492 Non-pressure chronic ulcer of skin of other sites with fat layer exposed; S31.41XA Laceration without foreign body of vagina and vulva, initial encounter; X58.XXXA Exposure to other specified factors, initial encounter; L98.421 Non-pressure chronic ulcer of back limited to breakdown of skin; Z87.891 Personal history of nicotine dependence
CPT/HCPCS: 11042

== ENCOUNTER 2020-10-19 11:15 | Outpatient (RCR) | payer MEDICARE, OTHER, SELFPAY ==
[2020-10-05 00:14] VITALS: BP 134/53; PULSE 87; RESP 18; TEMP 35.8
[2020-10-05 11:16] VITALS: BP 109/90; PULSE 92; RESP 22; TEMP 36.8; BMI 39.6
--- NOTE | 2020-10-05 12:43 | PN.PCM_ITS ---
(1) Ulcer of perianal area with fat layer exposed Status: Chronic Code(s): L98.492 - Non-pressure chronic ulcer of skin of other sites with fat layer exposed Comment: nonhealing hidradenitis ulcer bilateral perianal areas (2) Labial tear Status: Acute Code(s): S31.41XA - Laceration without foreign body of vagina and vulva, initial encounter (3) Hidradenitis suppurativa of anus Status: Chronic Code(s): L73.2 - Hidradenitis suppurativa (4) Type 2 diabetes mellitus Status: Chronic Code(s): E11.9 - Type 2 diabetes mellitus without complications Type of Wound Date of Service: 10/05/20 Chief Complaint: Nonhealing recurrent hidradenitis ulcer bilateral perianal area and left vulval hidradenitis. History of Wound: Surgery 01/31/20 - Surgical preparation bilateral perianal area with excisional debridement nonhealing recurrent hidradenitis ulcer with FTSG reconstruction from left lower back/superior gluteal area (6.25 cm2) and placement AmnioFill placental connective tissue powder (250 mg). Wound care - Silver covered by gauze. Labial tear is healed today wound culture from 08/24/20 positive for MRSE and Anaerobic cocci. She was started on Clindamycin, Flagyl and a probiotic. She has finished the Flagyl. Operative culture from 01/31/20- Negative. She was continued on Augmentin from a preop culture (12/23/19) that showed Streptococcus anginosus, Corynebacterium striatum, and Anaerobic cocci. Wound culture form 05/25/20 was positive for Strep angionosus, Corynebacterium minutissinum, and Actinomyces species. She was treated with Augmentin and has finished them. Prealbumin from 02/17/20 was 13.0. Encourage nutritional supplementation with protein to help the healing process. HgbA1c from 04/11/19 was 7.4. There was compromise of the skin graft. Patient had HBO treatments w ith some improvement in the healing hidradenitis ulcer and has finished them. She has an abrasion on her left vulval area with chronic hidradenitis. Will write for Doxycycline that she will use for flare ups. May need operative intervention in the future. The patient wants to hold off on surgery at this time. Today she denies fever. Her appetite is ok. She has developed recent lung issues that has required some oxygen. Progress of Wound: Perianal ulcer is mildly improved. Has left vulval hidradenitis. - Physical Exam Vital Signs Temp Pulse Resp BP 98.2 F 92 22 H 109/90 H 10/05/20 11:16 10/05/20 11:16 10/05/20 11:16 10/05/20 11:16 General: Alert, Oriented x3, Cooperative HEENT: Atraumatic Oral: Moist Mucosa Lungs: Normal air movement Cardiovascular: Regular rate Extremities: Capillary Refill Less than 3 Seconds Skin: Ulcer/ Wound - Perianal ulcer shows some improvement. Labial hydradenitis is healed today. Wound Measurements and Assessment WC - Nurse 1 - General Ulcer Measurement Start: 10/05/20 11:16 Freq: Status: Active Protocol: Activity Type Activity Date Activity User E-Sign Co-Sign Detail Recorded Client Recorded Date Recorded By Document 10/05/20 11:16 DL [id number] 10/05/20 11:29 DL 10/05/20 11:16 Wound Center Nurse 1 [Ulcer Assessment] #4 Labia/fold -Current Size (cm) - Length 0 -Current Size (cm) - Width 0 -Current Size (cm) - Depth 0 -Total Square Cm 0 -Photo Taken Yes -Exudate Amt None Present -Wound Margin Flat & Intact -Granulation Amt Large (67-100%) -Granulation Quality [place] -Necrosis Amt None Present (0 %) -Structure Exposed N/A -Texture (Hailee-wound Skin Appearance) No Abnormality -Moisture (Hailee-wound Skin Appearance No Abnormality ) -Color (Hailee-wound Skin Appearance) No Abnormality -Temperature (Hailee-wound Skin No Abnormality Appearance) (Pt Warm) -Tenderness on Palpation (Hailee-wound No Skin Appearance) -Ulcer Cleansing Wound Cleanser -Foul Odor after Cleansing No #2- coccyx/ Graft,post op -Current Size (cm) - Length 0.3 -Current Size (cm) - Width 0.2 -Current Size (cm) - Depth 0.1 -Total Square Cm 0.06 -Photo Taken No -Exudate Amt None Present -Granulation Amt Large (67-100%) -Granulation Quality [place] -Necrosis Amt None Present (0 %) -Structure Exposed N/A -Texture (Hailee-wound Skin Appearance) Scarring -Moisture (Hailee-wound Skin Appearance No Abnormality ) -Color (Hailee-wound Skin Appearance) No Abnormality -Temperature (Hailee-wound Skin No Abnormality Appearance) (Pt Warm) -Tenderness on Palpation (Hailee-wound No Skin Appearance) -Ulcer Cleansing Wound Cleanser -Foul Odor after Cleansing No -Anesthetic Used 4% Lidocaine Solution WC - Nurse 2 - General Ulcer CM Notes Start: 10/05/20 11:16 Freq: Status: Active Protocol: Activity Type Activity Date Activity User E-Sign Co-Sign Detail Recorded Client Recorded Date Recorded By Document 10/05/20 12:08 DL [id number] 10/05/20 12:09 DL 10/05/20 12:08 Wound Center Nurse 2 [Procedure/Treatment] #4 Labia/fold -Correct Patient No -Correct Side, Site, Position No -Correct Procedure No -Procedure Performed No -Post Debridement (cm) - Length 0 -Post Debridement (cm) - Width 0 -Post Debridement (cm) - Depth 0 -Total Square (Post) (cm) 0 -Area of Debridement (cm) - Length 0 -Area of Debridement (cm) - Width 0 -Total Square (Area) (cm) 0 -Wound/Ulcer Outcome Healed- Epithelialized #2- coccyx/ Graft,post op -Time 12:08 -Correct Patient Yes -Correct Side, Site, Position Yes -Correct Procedure Yes -Procedure Performed Yes -Type of Procedure Debridement -Clinical Debridement Subcutaneous -Tissue Removed Subcutaneous -Post Debridement (cm) - Length 1 -Post Debridement (cm) - Width 0.2 -Post Debridement (cm) - Depth 0.1 -Total Square (Post) (cm) 0.2 -Area of Debridement (cm) - Length 1 -Area of Debridement (cm) - Width 0.2 -Total Square (Area) (cm) 0.2 -Tunneling No -Undermining/Tunneling No -Circular Undermining No -Wound/Ulcer Outcome Not Healed -Ulcer Cleansing Rinsed/ Irrigated with Saline -Foul Odor after Cleansing No -Bioengineered Tissue No -Bleeding Controlled with Pressure -Offloading No -Treatment Response Procedure Tolerated Well -Debridement - Subq, 1st 20sq cm Yes [See Physician Procedure note for Specifics] Pain Scale: 0-10 Numeric [Pain] -Is Patient Pain Free? Yes - Nurse 3 - General Ulcer D/C NN Start: 10/05/20 11:16 Freq: Status: Active Protocol: Activity Type Activity Date Activity User E-Sign Co-Sign Detail Recorded Client Recorded Date Recorded By Document 10/05/20 12:09 DL [id number] 10/05/20 12:10 DL 10/05/20 12:09 Wound Care Nurse 3 [Wound Dressing] #2- coccyx/ Graft,post op -Ulcer Cleansing Rinsed/ Irrigated with Saline -Foul Odor after Cleansing No -Primary Dressing Applied Aquacel AG 2x2 -Primary Dressing Covered/Secured Dry Gauze, with Secured with Tape -Aquacel AG 2x2 1 Pain Scale: 0-10 Numeric [Pain] -Is Patient Pain Free? Yes - Visit Discharge [Visit Discharge Information] -Discharge Condition Stable -Ambulatory Status Wheelchair -Transportation Private Auto -Accompanied by Mango -Medication Reconcilliation completed Yes & provided to patient/care provider -Clinical Summary of Care Provided Yes Musculoskeletal: No Tenderness to Palpation of Joints or Extremities Neurological: Cranial nerves II-XII grossly intact Psych/Mental Status: Normal Affect, Appropriate Debridement Note Post-Debridement Measurements/Treatment - Nurse 2 - General Ulcer CM Notes Start: 10/05/20 11:16 Freq: Status: Active Protocol: Activity Type Activity Date Activity User E-Sign Co-Sign Detail Recorded Client Recorded Date Recorded By Document 10/05/20 12:08 DL [id number] 10/05/20 12:09 DL 10/05/20 12:08 Wound Center Nurse 2 #4 Labia/fold -Correct Patient No -Correct Side, Site, Position No -Correct Procedure No -Procedure Performed No -Post Debridement (cm) - Length 0 -Post Debridement (cm) - Width 0 -Post Debridement (cm) - Depth 0 -Total Square (Post) (cm) 0 -Area of Debridement (cm) - Length 0 -Area of Debridement (cm) - Width 0 -Total Square (Area) (cm) 0 -Wound/Ulcer Outcome Healed- Epithelialized #2- coccyx/ Graft,post op -Time 12:08 -Correct Patient Yes -Correct Side, Site, Position Yes -Correct Procedure Yes -Procedure Performed Yes -Type of Procedure Debridement -Clinical Debridement Subcutaneous -Tissue Removed Subcutaneous -Post Debridement (cm) - Length 1 -Post Debridement (cm) - Width 0.2 -Post Debridement (cm) - Depth 0.1 -Total Square (Post) (cm) 0.2 -Area of Debridement (cm) - Length 1 -Area of Debridement (cm) - Width 0.2 -Total Square (Area) (cm) 0.2 -Tunneling No -Undermining/Tunneling No -Circular Undermining No -Wound/Ulcer Outcome Not Healed -Ulcer Cleansing Rinsed/ Irrigated with Saline -Foul Odor after Cleansing No -Bioengineered Tissue No -Bleeding Controlled with Pressure -Offloading No -Treatment Response Procedure Tolerated Well -Debridement - Subq, 1st 20sq cm Yes Pain Scale: 0-10 Numeric Is Patient Pain Free? Yes - Nurse 3 - General Ulcer D/C NN Start: 10/05/20 11:16 Freq: Status: Active Protocol: Activity Type Activity Date Activity User E-Sign Co-Sign Detail Recorded Client Recorded Date Recorded By Document 10/05/20 12:09 DL [id number] 10/05/20 12:10 DL 10/05/20 12:09 Wound Care Nurse 3 #2- coccyx/ Graft,post op -Ulcer Cleansing Rinsed/ Irrigated with Saline -Foul Odor after Cleansing No -Primary Dressing Applied Aquacel AG 2x2 -Primary Dressing Covered/Secured with Dry Gauze, Secured with Tape -Aquacel AG 2x2 1 Pain Scale: 0-10 Numeric Is Patient Pain Free? Yes - Visit Discharge Discharge Condition Stable Ambulatory Status Wheelchair Transportation Private Auto Accompanied by Mango Medication Reconcilliation completed & Yes provided to patient/care provider Clinical Summary of Care Provided Yes Wound debrided: Perianal ulcer Type of Debridement: Excisional debridement Anesthesia Used: 5% Lidocaine Gel Depth: Down to and including healthy tissue, in the subcutaneous layer Percentage of wound debrided: 100 Instrument Used: 3mm curette Tissue Removed: Subcutaneous tissue and slough Severity: Limited To Skin Breakdown Amount of bleeding with debridement: Mild Bleeding Controlled with: Pressure Patient tolerated procedure well Assessment/Plan Assessment: 1. Nonhealing recurrent hidradenitis ulcer bilateral perianal area. 2. Left vulval hidradenitis. 3. Diabetes. 4. Hidradenitis. 5. Former smoker. Plan: Continue Silver dressing changes daily. Wound culture was obtained from 08/24/20. It showed MRSE and Anaerobi cocci. She was placed on Clindamycin and Flagyl. She has finished the antibiotics. She completed the HBO treatments which she tolerated well. Her Prealbumin was 13.0 from 02/17/20. Encourage nutritional supplementation with protein to help the healing process. HgbA1c from 04/11/19 was 7.4. Discussed surgical options with the patient for wound closure. Another skin graft is a possibility versus a local skin flap which can be problematic because of the amount of periwound scar tissue present. A fasciocutaneous flap can be done as well. Surgery would be difficult because she has some recent lung issues and a long complex flap procedure may not be the best option. Will see how much more improvement is seen in the ulcer now that the HBO is completed. She has recent flare up of left vulval hidradenitis. To help absorb drainage, she applied Silver there as well. It is healed today. Will send in script for Doxycycline that she will use for flare ups. She understands that surgery may be necessary in the future. Followup 2 weeks. [id number]: [id number] Kacey subq tissue 20 sq cm/<
[2020-10-19 11:51] VITALS: BP 154/49; PULSE 70; RESP 18; TEMP 36.6; BMI 39.6
--- NOTE | 2020-10-19 14:45 | PN.PCM_ITS ---
(1) Ulcer of perianal area with fat layer exposed Status: Chronic Code(s): L98.492 - Non-pressure chronic ulcer of skin of other sites with fat layer exposed Comment: nonhealing hidradenitis ulcer bilateral perianal areas (2) Labial tear Status: Acute Code(s): S31.41XA - Laceration without foreign body of vagina and vulva, initial encounter (3) Hidradenitis suppurativa of anus Status: Chronic Code(s): L73.2 - Hidradenitis suppurativa (4) Type 2 diabetes mellitus Status: Chronic Code(s): E11.9 - Type 2 diabetes mellitus without complications Type of Wound Date of Service: 10/19/20 Chief Complaint: Nonhealing recurrent hidradenitis ulcer bilateral perianal area and left vulval hidradenitis. History of Wound: Surgery 01/31/20 - Surgical preparation bilateral perianal area with excisional debridement nonhealing recurrent hidradenitis ulcer with FTSG reconstruction from left lower back/superior gluteal area (6.25 cm2) and placement AmnioFill placental connective tissue powder (250 mg). Wound care - Hailee anal ulcer is healed today. Labial tear is healed today wound culture from 08/24/20 positive for MRSE and Anaerobic cocci. She was started on Clindamycin, Flagyl and a probiotic. She has finished the Flagyl. Operative culture from 01/31/20- Negative. She was continued on Augmentin from a preop culture (12/23/19) that showed Streptococcus anginosus, Corynebacterium striatum, and Anaerobic cocci. Wound culture form 05/25/20 was positive for Strep angionosus, Corynebacterium minutissinum, and Actinomyces species. She was treated with Augmentin and has finished them. Prealbumin from 02/17/20 was 13.0. Encourage nutritional supplementation with protein to help the healing process. HgbA1c from 04/11/19 was 7.4. There was compromise of the skin graft. Patient had HBO treatments with some improvement in the healing hidradenitis ulcer and has finished them. She has an abrasion on her left vulval area with chronic hidradenitis. Will write for Doxycycline that she will use for flare ups. May need operative intervention in the future. The patient wants to hold off on surgery at this time. Today she denies fever. Her appetite is ok. She has developed recent lung issues that has required some oxygen. Progress of Wound: Perianal ulcer is healed today. The left vulva hidradenitis is not longer draining. - Physical Exam Vital Signs Temp Pulse Resp BP 97.8 F 70 18 154/49 H 10/19/20 11:51 10/19/20 11:51 10/19/20 11:51 10/19/20 11:51 General: Alert, Oriented x3, Cooperative HEENT: Atraumatic Oral: Moist Mucosa Lungs: Normal air movement Cardiovascular: Regular rate Extremities: Capillary Refill Less than 3 Seconds Skin: Ulcer/ Wound - Perianal ulcer is healed today. Left vulval hydradenitis is no longer open or draining. Wound Measurements and Assessment WC - Nurse 1 - General Ulcer Measurement Start: 10/05/20 11:16 Freq: Status: Active Protocol: Activity Type Activity Date Activity User E-Sign Co-Sign Detail Recorded Client Recorded Date Recorded By Document 10/19/20 11:51 [id number] 10/19/20 11:53 RB 10/19/20 11:51 Wound Center Nurse 1 [Ulcer Assessment] #2- coccyx/ Graft,post op -Combined with other wound No -Current Size (cm) - Length 0.5 -Current Size (cm) - Width 0.5 -Current Size (cm) - Depth 0.1 -Total Square Cm 0.25 -Tunneling No -Undermining/Tunneling No -Circular Undermining No -Exudate Amt Small -Exudate Type Serosanguineous -Wound Margin Flat & Intact -Granulation Amt Large (67-100%) -Granulation Quality [place],Red -Slough/Fibrin Yes -Necrosis Amt Small (1-33%) -Necrotic Tissue Type Adherent Slough -Structure Exposed N/A -Texture (Hailee-wound Skin Appearance) Assessed, Scarring -Moisture (Hailee-wound Skin Appearance Assessed ) -Color (Hailee-wound Skin Appearance) Assessed -Temperature (Hailee-wound Skin No Abnormality Appearance) (Pt Warm) -Tenderness on Palpation (Hailee-wound No Skin Appearance) -Ulcer Cleansing Wound Cleanser -Foul Odor after Cleansing No -Anesthetic Used 4% Lidocaine Solution WC - Nurse 2 - General Ulcer CM Notes Start: 10/05/20 11:16 Freq: Status: Active Protocol: Activity Type Activity Date Activity User E-Sign Co-Sign Detail Recorded Client Recorded Date Recorded By Document 10/19/20 12:02 [id number] 10/19/20 12:04 10/19/20 12:02 Wound Center Nurse 2 [Procedure/Treatment] -Correct Patient No -Correct Side, Site, Position No -Correct Procedure No -Procedure Performed No -Post Debridement (cm) - Length 0 -Post Debridement (cm) - Width 0 -Post Debridement (cm) - Depth 0 -Total Square (Post) (cm) 0 -Area of Debridement (cm) - Length 0 -Area of Debridement (cm) - Width 0 -Total Square (Area) (cm) 0 -Wound/Ulcer Outcome Healed- Epithelialized [See Physician Procedure note for Specifics] Pain Scale: 0-10 Numeric [Pain] -Is Patient Pain Free? Yes - Nurse 3 - General Ulcer D/C NN Start: 10/05/20 11:16 Freq: Status: Active Protocol: Activity Type Activity Date Activity User E-Sign Co-Sign Detail Recorded Client Recorded Date Recorded By Document 10/19/20 12:06 [id number] 10/19/20 12:07 10/19/20 12:06 -Is Patient Pain Free? Yes - Visit Discharge [Visit Discharge Information] -Discharge Condition Stable -Ambulatory Status Wheelchair -Transportation Private Auto -Accompanied by jimmy-- -Medication Reconcilliation completed Yes & provided to patient/care provider -Clinical Summary of Care Provided Yes -Notes: Dry gauze placed on healed ulcer, healed photo taken. Musculoskeletal: No Tenderness to Palpation of Joints or Extremities Neurological: Cranial nerves II-XII grossly intact Psych/Mental Status: Normal Affect, Appropriate Debridement Note Post-Debridement Measurements/Treatment - Nurse 2 - General Ulcer CM Notes Start: 10/05/20 11:16 Freq: Status: Active Protocol: Activity Type Activity Date Activity User E-Sign Co-Sign Detail Recorded Client Recorded Date Recorded By Document 10/05/20 12:08 [id number] 10/05/20 12:09 Document 10/19/20 12:02 [id number] 10/19/20 12:04 10/05/20 10/19/20 12:08 12:02 Wound Center Nurse 2 #4 Labia/fold -Correct Patient No -Correct Side, Site, Position No -Correct Procedure No -Procedure Performed No -Post Debridement (cm) - Length 0 -Post Debridement (cm) - Width 0 -Post Debridement (cm) - Depth 0 -Total Square (Post) (cm) 0 -Area of Debridement (cm) - Length 0 -Area of Debridement (cm) - Width 0 -Total Square (Area) (cm) 0 -Wound/Ulcer Outcome Healed- Epithelialized #2- coccyx/ Graft,post op -Time 12:08 -Correct Patient Yes No -Correct Side, Site, Position Yes No -Correct Procedure Yes No -Procedure Performed Yes No -Type of Procedure Debridement -Clinical Debridement Subcutaneous -Tissue Removed Subcutaneous -Post Debridement (cm) - Length 1 0 -Post Debridement (cm) - Width 0.2 0 -Post Debridement (cm) - Depth 0.1 0 -Total Square (Post) (cm) 0.2 0 -Area of Debridement (cm) - Length 1 0 -Area of Debridement (cm) - Width 0.2 0 -Total Square (Area) (cm) 0.2 0 -Tunneling No -Undermining/Tunneling No -Circular Undermining No -Wound/Ulcer Outcome Not Healed Healed- Epithelialized -Ulcer Cleansing Rinsed/ Irrigated with Saline -Foul Odor after Cleansing No -Bioengineered Tissue No -Bleeding Controlled with Pressure -Offloading No -Treatment Response Procedure Tolerated Well -Debridement - Subq, 1st 20sq cm Yes Pain Scale: 0-10 Numeric Is Patient Pain Free? Yes Yes - Nurse 3 - General Ulcer D/C NN Start: 10/05/20 11:16 Freq: Status: Active Protocol: Activity Type Activity Date Activity User E-Sign Co-Sign Detail Recorded Client Recorded Date Recorded By Document 10/05/20 12:09 DL [id number] 10/05/20 12:10 Document 10/19/20 12:06 [id number] 10/19/20 12:07 10/05/20 10/19/20 12:09 12:06 Wound Care Nurse 3 #2- coccyx/ Graft,post op -Ulcer Cleansing Rinsed/ Irrigated with Saline -Foul Odor after Cleansing No -Primary Dressing Applied Aquacel AG 2x2 -Primary Dressing Covered/Secured with Dry Gauze, Secured with Tape -Aquacel AG 2x2 1 Pain Scale: 0-10 Numeric Is Patient Pain Free? Yes Yes ADAMS - Visit Discharge Discharge Condition Stable Stable Ambulatory Status Wheelchair Wheelchair Transportation Private Auto Private Auto Accompanied by Jimmy marquez-- Medication Reconcilliation completed & Yes Yes provided to patient/care provider Clinical Summary of Care Provided Yes Yes Notes: Dry gauze placed on healed ulcer, healed photo taken. No debridement was completed today Assessment/Plan Active Problems (Last Reviewed 08/10/20 @ 14:26 by Sonia Gonzalez) Labial tear (Acute) Hidradenitis suppurativa of anus (Chronic) Ulcer of perianal area with fat layer exposed (Chronic) nonhealing hidradenitis ulcer bilateral perianal areas Type 2 diabetes mellitus (Chronic) Assessment: 1. Nonhealing recurrent hidradenitis ulcer bilateral perianal area. 2. Left vulval hidradenitis. 3. Diabetes. 4. Hidradenitis. 5. Former smoker. Plan: Perianal ulcer is healed today. Instructed to continue to monitor to make sure that the ulcer does not reopen. They may need to place a cream and ointment to prevent chafing. If ulcer reopens instructed them to come in and be seen. Wound culture was obtained from 08/24/20. It showed MRSE and Anaerobi cocci. She was placed on Clindamycin and Flagyl. She has finished the antibiotics. She completed the HBO treatments which she tolerated well. Her Prealbumin was 13.0 from 02/17/20. Encourage nutritional supplementation with protein to help the healing process. HgbA1c from 04/11/19 was 7.4. Discussed surgical options with the patient for wound closure. Another skin graft is a possibility versus a local skin flap which can be problematic because of the amount of periwound scar tissue present. A fasciocutaneous flap can be done as well. Surgery would be difficult because she has some recent lung issues and a long complex flap procedure may not be the best option. Will see how much more improvement is seen in the ulcer now that the HBO is completed. She has recent flare up of left vulval hidradenitis. To help absorb drainage, she applied Silver there as well. It is healed today. Will send in script for Doxycycline that she will use for flare ups. She understands that surgery may be necessary in the future. Followup as needed. Office Visits / Consults: [id number] OV L3 Est
== END 2020-11-04 23:59 ==
LOC: WC 11:15
PROVIDERS: Family Provider Nurse Practitioner Family; PCP Student in an Organized Health Care Education/Training Program; Referring Provider Surgery; Visit Provider Surgery
DX: L73.2 Hidradenitis suppurativa (principal); E11.9 Type 2 diabetes mellitus without complications; S31.41XA Laceration without foreign body of vagina and vulva, initial encounter; X58.XXXA Exposure to other specified factors, initial encounter; Z87.891 Personal history of nicotine dependence
CPT/HCPCS: 11042; 99213; G0463

== ENCOUNTER 2021-01-25 14:45 | Outpatient (RCR) | payer MEDICARE, OTHER, SELFPAY ==
[2021-01-01 10:27] VITALS: BMI 35.9
[2021-01-18 14:15] VITALS: BP 141/52; PULSE 74; RESP 20; TEMP 36.4; BMI 35.9
--- NOTE | 2021-01-18 16:14 | PCM.WC.PN ---
History of Present Illness Date of Service: 01/18/21 Chief Complaint: Nonhealing recurrent hidradenitis ulcer on posterior elisha anal area. History of Wound: She comes in today with a new open area on her posterior elisha anal ulcer that started to bleed one week ago. Her states he has not been placing anything on it. Wound Care- Collagen Hydrogel daily and as needed then cover with gauze. Surgery 01/31/20 - Surgical preparation bilateral perianal area with excisional debridement nonhealing recurrent hidradenitis ulcer with FTSG reconstruction from left lower back/superior gluteal area (6.25 cm2) and placement AmnioFill placental connective tissue powder (250 mg). Wound care - Elisha anal ulcer is healed today. Labial tear is healed today wound culture from 08/24/20 positive for MRSE and Anaerobic cocci. She was started on Clindamycin, Flagyl and a probiotic. She has finished the Flagyl. Operative culture from 01/31/20- Negative. She was continued on Augmentin from a preop culture (12/23/19) that showed Streptococcus anginosus, Corynebacterium striatum, and Anaerobic cocci. Wound culture form 05/25/20 was positive for Strep angionosus, Corynebacterium minutissinum, and Actinomyces species. She was treated with Augmentin and has finished them. Prealbumin from 02/17/20 was 13.0. Encourage nutritional supplementation with protein to help the healing process. HgbA1c from 04/11/19 was 7.4. There was compromise of the skin graft. Patient had HBO treatments with some improvement in the healing hidradenitis ulcer and has finished them. She has an abrasion on her left vulval area with chronic hidradenitis. May need operative intervention in the future. The patient wants to hold off on surgery at this time. Today she denies fever. Her appetite is ok. She has developed recent lung issues that has required some oxygen. Progress of Wound: New open area on posterior elisha-anal that is bleeding. Objective Data Objective Data Vital Signs: Vital Signs Temp Pulse Resp BP 97.6 F L 74 20 H 141/52 H 01/18/21 14:15 01/18/21 14:15 01/18/21 14:15 01/18/21 14:15 Body Mass Index (BMI) 35.9 Charges/Coding Visit Charges Office Visits / Consults: 42222 OV L4 Est (25 modifier) Procedures Integumentary 111xxx-113xx: 80205 Kacey subq tissue 20 sq cm/< Physical Exam Const alert and oriented x3 General Appearance: cooperative HEENT normocephalic Head and Scalp: atraumatic Eyes PERRL Lymph Lymphatic: no lymphedema noted Resp normal respiratory effort Cardio regular rate GI Palpation: soft Extremity normal to inspection Skin Rashes: no rashes Wound Narrative: New opened wound on posterior elisha anal area that has episodes of bleeding. Neuro CN's II-XII intact bilaterally Sensorium / Orientation: awake and alert Psych Appearance: grossly normal Thought Process: normal thought process Debridement Note Debridement Note Post-Debridement Measurements and Additional Note: Post-Debridement Measurements/Treatment - Nurse 1 - General Ulcer Assessment Start: 01/18/21 14:15 Freq: Status: Active Protocol: SOPHIA Activity Type Activity Date Activity User E-Sign Co-Sign Detail Recorded Client Recorded Date Recorded By Document 01/18/21 14:15 DL [id number] 01/18/21 14:32 DL 01/18/21 14:15 WC - Today's Visit Information Type of service Initial Visit Arrival Mode Wheelchair Transfer Assistance Manual Transfer Assist (Other) x2 Patient Identification Verified (Name & Yes ) Patient Requires Transmission-Based No Precautions Height and Weight Body Mass Index (BMI) 35.9 BMI Classification Obese Vital Signs Temperature (97.8 F-99.1 F) 97.6 F L Temperature Source Temporal Pulse Rate (60-100) 74 Pulse Location Monitor Respiratory Rate (12-18) 20 H Respiratory rate source Observation Blood Pressure (90/60-120/80) 141/52 H Blood Pressure Mean (mm Hg) 81 Source Monitor Pain Scale: 0-10 Numeric Is Patient Pain Free? Yes - Nurse 1 - General Ulcer Measurement Start: 01/18/21 14:15 Freq: Status: Active Protocol: Activity Type Activity Date Activity User E-Sign Co-Sign Detail Recorded Client Recorded Date Recorded By Document 01/18/21 14:15 DL [id number] 01/18/21 14:32 DL 01/18/21 14:15 Wound Center Nurse 1 #5 L Inner Elisha Anal -Current Size (cm) - Length 3.5 -Current Size (cm) - Width 1 -Current Size (cm) - Depth 0.3 -Total Square Cm 3.5 -Photo Taken Yes -Exudate Amt Small -Exudate Type Serosanguineous -Wound Margin Indistinct, Non -Visible -Granulation Amt Large (67-100%) -Granulation Quality Red -Necrosis Amt Small (1-33%) -Necrotic Tissue Type Adherent Slough -Structure Exposed N/A -Texture (Elisha-wound Skin Appearance) Excoriation -Moisture (Elisha-wound Skin Appearance) Maceration -Color (Elisha-wound Skin Appearance) No Abnormality -Temperature (Elisha-wound Skin No Abnormality Appearance) (Pt Warm) -Tenderness on Palpation (Elisha-wound Yes Skin Appearance) -Ulcer Cleansing Wound Cleanser -Foul Odor after Cleansing No -Anesthetic Used 4% Lidocaine Solution WC - Nurse 2 - General Ulcer CM Notes Start: 01/18/21 14:15 Freq: Status: Active Protocol: Activity Type Activity Date Activity User E-Sign Co-Sign Detail Recorded Client Recorded Date Recorded By Document 01/18/21 15:44 PL [id number] 01/18/21 15:46 PL 01/18/21 15:44 Wound Center Nurse 2 -Time 15:05 -Correct Patient Yes -Correct Side, Site, Position Yes -Correct Procedure Yes -Procedure Performed Yes -Type of Procedure Debridement -Clinical Debridement Subcutaneous -Tissue Removed Subcutaneous -Post Debridement (cm) - Length 0.5 -Post Debridement (cm) - Width 1.0 -Post Debridement (cm) - Depth 0.2 -Total Square (Post) (cm) 0.50 -Area of Debridement (cm) - Length 0.5 -Area of Debridement (cm) - Width 1.0 -Total Square (Area) (cm) 0.50 -Tunneling No -Undermining/Tunneling No -Circular Undermining No -Wound/Ulcer Outcome Not Healed -Ulcer Cleansing Rinsed/ Irrigated with Saline -Foul Odor after Cleansing No -Bioengineered Tissue No -Debridement - Subq, 1st 20sq cm Yes Pain Scale: 0-10 Numeric Is Patient Pain Free? Yes WC - Nurse 3 - General Ulcer D/C NN Start: 01/18/21 14:15 Freq: Status: Active Protocol: Activity Type Activity Date Activity User E-Sign Co-Sign Detail Recorded Client Recorded Date Recorded By Document 01/18/21 15:24 BMF [id number] 01/18/21 15:25 [facility] 01/18/21 15:24 Wound Care Nurse 3 #5 L Inner Elisha Anal -Ulcer Cleansing Rinsed/ Irrigated with Saline -Primary Dressing Applied C Hydrogel ($) -Primary Dressing Covered/Secured with Dry Gauze, Secured with Tape Treatment Response Procedure Tolerated Well Pain Scale: 0-10 Numeric Is Patient Pain Free? Yes WC - Visit Discharge Discharge Condition Stable Ambulatory Status Wheelchair Transportation Private Auto Accompanied by Wound debrided: Posterior elisha anal ulcer Type of Debridement: Excisional debridement Anesthesia Used: 5% Lidocaine Gel Depth: Down to and including healthy tissue and in the subcutaneous layer Percentage of wound debrided: 100 Instrument Used: 3mm curette Tissue Removed: Subcutaneous tissue and slough Severity: Fat Layer Exposed Amount of bleeding with debridement: Moderate Bleeding Controlled with: Pressure and Compression and gauze Patient tolerated procedure: Patient tolerated procedure well Assessment/Plan Assessment/Plan (1) Ulcer of perianal area with fat layer exposed: CODE(S): L98.492 - Non-pressure chronic ulcer of skin of other sites with fat layer exposed (2) Hidradenitis suppurativa of anus: CODE(S): L73.2 - Hidradenitis suppurativa (3) Type 2 diabetes mellitus: CODE(S): E11.9 - Type 2 diabetes mellitus without complications (4) Dyspnea on exertion: CODE(S): R06.00 - Dyspnea, unspecified PLAN: Wound Care - Collagen Hydrogel covered with gauze daily and as needed. Ok to wash area with soap and water before dressing changes. She has declining health and is requiring oxygen most of the time. She would like her colostomy reversed, but had a discussion with her and her about her continuing to have recurrent perianal ulcer, that may not be the best choice for her, especially with her lung issues and having surgery. Encouraged increase protein intake to help with wound healing. Spent 28 minutes with patient and her explaining plan of care and how to do dressing changes the reasoning behind these decisions. Follow up one week.
[2021-01-25 14:50] VITALS: BP 167/47; PULSE 77; RESP 20; TEMP 36.8; BMI 35.9
--- NOTE | 2021-01-25 15:31 | PCM.WC.PN ---
History of Present Illness Date of Service: 01/25/21 Chief Complaint: Nonhealing recurrent hidradenitis ulcer on posterior elisha anal area. History of Wound: She comes in today with a new open area on her posterior elisha anal ulcer that started to bleed one week ago. Her states he has not been placing anything on it. Wound Care- Collagen Hydrogel daily and as needed then cover with gauze. Surgery 01/31/20 - Surgical preparation bilateral perianal area with excisional debridement nonhealing recurrent hidradenitis ulcer with FTSG reconstruction from left lower back/superior gluteal area (6.25 cm2) and placement AmnioFill placental connective tissue powder (250 mg). Wound care - Elisha anal ulcer is healed today. Labial tear is healed today wound culture from 08/24/20 positive for MRSE and Anaerobic cocci. She was started on Clindamycin, Flagyl and a probiotic. She has finished the Flagyl. Operative culture from 01/31/20- Negative. She was continued on Augmentin from a preop culture (12/23/19) that showed Streptococcus anginosus, Corynebacterium striatum, and Anaerobic cocci. Wound culture form 05/25/20 was positive for Strep angionosus, Corynebacterium minutissinum, and Actinomyces species. She was treated with Augmentin and has finished them. Prealbumin from 02/17/20 was 13.0. Encourage nutritional supplementation with protein to help the healing process. HgbA1c from 04/11/19 was 7.4. There was compromise of the skin graft. Patient had HBO treatments with some improvement in the healing hidradenitis ulcer and has finished them. She has an abrasion on her left vulval area with chronic hidradenitis. May need operative intervention in the future. The patient wants to hold off on surgery at this time. Today she denies fever. Her appetite is ok. She has developed recent lung issues that has required some oxygen. Progress of Wound: New open area on posterior elisha-anal is healed today. Objective Data Objective Data Vital Signs: Vital Signs Temp Pulse Resp BP 98.3 F 77 20 H 167/47 H 01/25/21 14:50 01/25/21 14:50 01/25/21 14:50 01/25/21 14:50 Body Mass Index (BMI) 35.9 Charges/Coding Visit Charges Office Visits / Consults: 17502 OV L3 Est Physical Exam Const alert and oriented x3 General Appearance: cooperative HEENT normocephalic Head and Scalp: atraumatic Eyes PERRL Lymph Lymphatic: no lymphedema noted Resp normal respiratory effort Cardio regular rate GI non-tender Palpation: soft Extremity normal capillary refill and no calf tenderness Skin Wound Narrative: Elisha anal wound is healed today. Neuro CN's II-XII intact bilaterally Psych Appearance: grossly normal Debridement Note Debridement Note Post-Debridement Measurements and Additional Note: Post-Debridement Measurements/Treatment WC - Nurse 1 - General Ulcer Assessment Start: 01/18/21 14:15 Freq: Status: Active Protocol: WC.[place] Activity Type Activity Date Activity User E-Sign Co-Sign Detail Recorded Client Recorded Date Recorded By Document 01/18/21 14:15 DL [id number] 01/18/21 14:32 DL Document 01/25/21 14:50 DL [id number] 01/25/21 15:00 DL 01/18/21 01/25/21 14:15 14:50 WC - Today's Visit Information Type of service Initial Visit Follow-up Visit (Physician/[employer]INE OPERATOR ) Arrival Mode Wheelchair Cane Transfer Assistance Manual None Transfer Assist (Other) x2 Patient Identification Verified (Name & Yes Yes ) Patient Requires Transmission-Based No No Precautions Height and Weight Body Mass Index (BMI) 35.9 35.9 BMI Classification Obese Obese Vital Signs Temperature (97.8 F-99.1 F) 97.6 F L 98.3 F Temperature Source Temporal Temporal Pulse Rate (60-100) 74 77 Pulse Location Monitor Monitor Respiratory Rate (12-18) 20 H 20 H Respiratory rate source Observation Observation Blood Pressure (90/60-120/80) 141/52 H 167/47 H Blood Pressure Mean (mm Hg) 81 87 Source Monitor Monitor History Since Last Visit- (Skip if this is Patient's initial visit) Have you changed medications since your No last visit? Any new allergies or adverse reactions No Had a fall/change in ADL's that may No increase risk of falls Signs or symptoms of abuse and/or No neglect since last visit Have you been in the hospital since your No last visit? Has dressing in place as prescribed Yes Has compression in place as prescribed N/A Has offloadiing in place as prescribed Yes Experienced any changes in pain level or No management Pain Scale: 0-10 Numeric Is Patient Pain Free? Yes Yes WC - Nurse 1 - General Ulcer Measurement Start: 01/18/21 14:15 Freq: Status: Active Protocol: Activity Type Activity Date Activity User E-Sign Co-Sign Detail Recorded Client Recorded Date Recorded By Document 01/18/21 14:15 DL [id number] 01/18/21 14:32 DL Document 01/25/21 14:50 DL [id number] 01/25/21 15:00 DL 01/18/21 01/25/21 14:15 14:50 Wound Center Nurse 1 #5 L Inner Elisha Anal -Current Size (cm) - Length 3.5 0.1 -Current Size (cm) - Width 1 0.1 -Current Size (cm) - Depth 0.3 0.1 -Total Square Cm 3.5 0.01 -Photo Taken Yes No -Exudate Amt Small None Present -Exudate Type Serosanguineous -Wound Margin Indistinct, Non Flat & Intact -Visible -Granulation Amt Large (67-100%) Large (67-100%) -Granulation Quality Red [place] -Necrosis Amt Small (1-33%) None Present (0 %) -Necrotic Tissue Type Adherent Slough -Structure Exposed N/A N/A -Texture (Elisha-wound Skin Appearance) Excoriation Scarring -Moisture (Elisha-wound Skin Appearance) Maceration No Abnormality -Color (Elisha-wound Skin Appearance) No Abnormality Assessed -Temperature (Elisha-wound Skin No Abnormality No Abnormality Appearance) (Pt Warm) (Pt Warm) -Tenderness on Palpation (Elisha-wound Yes No Skin Appearance) -Ulcer Cleansing Wound Cleanser Rinsed/ Irrigated with Saline -Foul Odor after Cleansing No No -Anesthetic Used 4% Lidocaine 4% Lidocaine Solution Solution WC - Nurse 2 - General Ulcer CM Notes Start: 01/18/21 14:15 Freq: Status: Active Protocol: Activity Type Activity Date Activity User E-Sign Co-Sign Detail Recorded Client Recorded Date Recorded By Document 01/18/21 15:44 PL [id number] 01/18/21 15:46 PL Document 01/25/21 15:23 [id number] [id number] 01/25/21 15:24 JF 01/18/21 01/25/21 15:44 15:23 Wound Center Nurse 2 #5 L Inner Elisha Anal -Time 15:05 -Correct Patient Yes No -Correct Side, Site, Position Yes No -Correct Procedure Yes No -Procedure Performed Yes -Type of Procedure Debridement Debridement -Clinical Debridement Subcutaneous -Tissue Removed Subcutaneous -Post Debridement (cm) - Length 0.5 0 -Post Debridement (cm) - Width 1.0 0 -Post Debridement (cm) - Depth 0.2 0 -Total Square (Post) (cm) 0.50 0 -Area of Debridement (cm) - Length 0.5 0 -Area of Debridement (cm) - Width 1.0 0 -Total Square (Area) (cm) 0.50 0 -Tunneling No -Undermining/Tunneling No -Circular Undermining No -Wound/Ulcer Outcome Not Healed Healed- Epithelialized -Ulcer Cleansing Rinsed/ Irrigated with Saline -Foul Odor after Cleansing No -Bioengineered Tissue No -Debridement - Subq, 1st 20sq cm Yes Pain Scale: 0-10 Numeric Is Patient Pain Free? Yes Yes - Nurse 3 - General Ulcer D/C NN Start: 01/18/21 14:15 Freq: Status: Active Protocol: Activity Type Activity Date Activity User E-Sign Co-Sign Detail Recorded Client Recorded Date Recorded By Document 01/18/21 15:24 [facility] [id number] 01/18/21 15:25 [facility] Document 01/25/21 15:25 [id number] 01/25/21 15:25 01/18/21 01/25/21 15:24 15:25 Wound Care Nurse 3 #5 L Inner Elisha Anal -Ulcer Cleansing Rinsed/ Irrigated with Saline -Primary Dressing Applied C Hydrogel ($) -Primary Dressing Covered/Secured with Dry Gauze, Secured with Tape Treatment Response Procedure Tolerated Well Pain Scale: 0-10 Numeric Is Patient Pain Free? Yes Yes - Visit Discharge Discharge Condition Stable Stable Ambulatory Status Wheelchair Wheelchair Transportation Private Auto Private Auto Accompanied by Mango Medication Reconcilliation completed & Yes provided to patient/care provider Clinical Summary of Care Provided Yes No debridement was completed: No debridement was completed today Assessment/Plan Assessment/Plan (1) Ulcer of perianal area with fat layer exposed: CODE(S): L98.492 - Non-pressure chronic ulcer of skin of other sites with fat layer exposed (2) Hidradenitis suppurativa of anus: CODE(S): L73.2 - Hidradenitis suppurativa (3) Dyspnea on exertion: CODE(S): R06.00 - Dyspnea, unspecified (4) COPD (chronic obstructive pulmonary disease): CODE(S): J44.9 - Chronic obstructive pulmonary disease, unspecified PLAN: Perianal ulcer is healed today. Instructed her to wash the area with soap and water daily and to dry well. Once the area is dry, apply a barrier ointment such as A&D ointment or Aquaphor to the elisha/anal area to help moisturize and protect her skin. She has declining health and is requiring oxygen most of the time. She would like her colostomy reversed, but had a discussion with her and her about her continuing to have recurrent perianal ulcer, that may not be the best choice for her, especially with her lung issues and having surgery. Encouraged increase protein intake to help with wound healing. Follow up as needed.
== END 2021-01-25 15:34 | disposition home or self-care (01) ==
LOC: WC 14:45
PROVIDERS: PCP Student in an Organized Health Care Education/Training Program; Visit Provider Nurse Practitioner Family
DX: E11.622 Type 2 diabetes mellitus with other skin ulcer (principal); L73.2 Hidradenitis suppurativa; L98.492 Non-pressure chronic ulcer of skin of other sites with fat layer exposed; J44.9 Chronic obstructive pulmonary disease, unspecified
CPT/HCPCS: 11042; 99213; G0463